=== PATIENT | male | born 1955 | race Caucasian/White ===

== ENCOUNTER 2020-11-11 11:14 | Outpatient (REF) | payer MEDICAID, SELFPAY ==
[2020-11-11 14:26] LABS: Alanine Aminotransferase 17 U/L (0-40); Albumin Level 4.4 g/dL (3.5-5.0); Alkaline Phosphatase 85 U/L (39-117); Anion Gap 15 (12-20); Aspartate Amino Transferase 22 U/L (5-37); Blood Urea Nitrogen 19 mg/dL (9-16); Calcium 9.6 mg/dL (8.4-10.2); Carbon Dioxide 22 mmol/L (22-29); Chloride 107 mmol/L (96-108); Cholesterol 126 mg/dL; Estimated Glomerular Filt Rate > 60; Glucose Fasting 93 mg/dL (60-99); HDL Cholesterol 46 mg/dL; LDL Cholesterol Calculated 60 mg/dl; Potassium 4.7 mmol/L (3.3-5.1); Sodium 139 mmol/L (135-145); Total Protein 6.9 g/dL (6.5-8.0); Triglycerides 100 mg/dL
== END 2020-11-11 11:15 | disposition home or self-care (01) ==
LOC: HO.10HDL 11:14
PROVIDERS: Visit Provider Internal Medicine
DX: I25.10 Atherosclerotic heart disease of native coronary artery without angina pectoris (principal); E78.00 Pure hypercholesterolemia, unspecified; I10 Essential (primary) hypertension
CPT/HCPCS: 36415; 80053; 80061

== ENCOUNTER 2021-05-15 10:01 | Outpatient (REF) | payer MEDICAID, SELFPAY ==
[2021-05-15 10:21] LABS: MANUAL DIFF FLAG NO
[2021-05-15 11:00] LABS: Basophils Percent Auto 0.8 % (0-2); Eosinophils Absolute Auto 0.2 X10*3/uL (0.0-0.4); Eosinophils Percent Auto 4.4 % (0-4); Hemoglobin 11.2 g/dl (14.0-18.0); Imm Gran Abs Auto 0.01 X10*3/uL (0.00-0.03); Imm Gran Pct Auto 0.3 % (0.0-0.4); Lymphocytes Absolute Auto 1.2 X10*3/uL (1.2-4.9); Mean Corpuscular Hemoglobin 32.1 pg (27.0-33.0); Mean Corpuscular Volume 100.3 fL (80.0-98.0); Mean Platelet Volume 9.9 fL (9.4-12.4); Monocytes Absolute Auto 0.5 X10*3/uL (0.1-1.2); Monocytes Percent Auto 12.3 % (2-11); Neutrophils Percent Auto 52.2 % (45-73); Platelet Count 272 X10*3/uL (160-400); Red Blood Count 3.49 X10*6/uL (4.60-5.80); Red Cell Distribution Width 14.4 % (11.0-16.0); White Blood Count 3.8 X10*3/uL (4.8-10.8)
[2021-05-15 11:34] LABS: Alanine Aminotransferase 28 U/L (0-40); Alkaline Phosphatase 137 U/L (39-117); Anion Gap 14 (12-20); Aspartate Amino Transferase 26 U/L (5-37); Bilirubin Total 0.9 mg/dL (0.0-1.0); Blood Urea Nitrogen 14 mg/dL (9-16); Calcium 9.8 mg/dL (8.4-10.2); Carbon Dioxide 25 mmol/L (22-29); Chloride 107 mmol/L (96-108); Estimated Glomerular Filt Rate > 60; Glucose Random 91 mg/dL (60-115); Iron 73 mcg/dL (45-160); Potassium 4.8 mmol/L (3.3-5.1); Sodium 141 mmol/L (135-145); Total Protein 6.5 g/dL (6.5-8.0)
[2021-05-15 11:51] LABS: Percent Iron Saturation 24 % (15-50); Total Iron Binding Capacity 307 mcg/dL (228-428); Unsaturated Iron Binding 234 ug/dL
== END 2021-05-15 10:02 | disposition home or self-care (01) ==
LOC: HO.LAB 10:01
PROVIDERS: PCP Internal Medicine; Visit Provider Internal Medicine
DX: I25.10 Atherosclerotic heart disease of native coronary artery without angina pectoris (principal); K21.9 Gastro-esophageal reflux disease without esophagitis; D64.9 Anemia, unspecified; I10 Essential (primary) hypertension
CPT/HCPCS: 36415; 80053; 83540; 85025

== ENCOUNTER 2021-06-14 13:56 | Emergency (ER) | payer MEDICAID, SELFPAY ==
--- NOTE | ~2021-06-14 | CT_ITS ---
EXAMINATION: CT ABDOMEN AND PELVIS WITHOUT CONTRAST CLINICAL INFORMATION: 66-year-old male with left abdominal inguinal hernia and left-sided abdominal and testicular pain COMPARISON: January 2017 TECHNIQUE: Multidetector volumetric imaging was performed from the superior aspect of the liver through the pubic symphysis. Sagittal and coronal reformatted images were obtained on the technologist's workstation. This CT examination was performed using dose optimization techniques as appropriate, variously including the following: *Automated exposure control *Adjustment of mA and/or kV according to patient size (this includes techniques or standardized protocols for targeted exams where dose is matched to indication/reason for exam; i.e. extremities or head) *Use of iterative reconstruction technique DLP: 740 mGy-cm FINDINGS: LUNG BASES: Increased interstitial markings subpleural bilaterally LIVER, GALLBLADDER, AND BILIARY TREE: The liver is normal in size, shape, and attenuation. No focal hepatic lesion or biliary ductal dilatation is present. Normal gallbladder is physiologically distended without stones or mass. There is no pericholecystic fluid collection PANCREAS: Unremarkable. SPLEEN: Unremarkable. ADRENAL GLANDS: Unremarkable. KIDNEYS AND URETERS: The kidneys are normal in size, shape, and attenuation. No hydronephrosis, hydroureter, or calculi seen. No perinephric stranding. BLADDER: Unremarkable. GASTROINTESTINAL TRACT: The small and large bowel are unremarkable. The appendix is unremarkable. There is large amount of retained fecal debris. Patient is status post partial gastrectomy with well-functioning anastomosis. There is no diverticulitis, colitis or diverticulosis. Loops of colon herniating in the left inguinal hernia without evidence of obstruction. ABDOMINAL WALL: There is large left inguinal hernia with herniation of loop of bowel as described. Patient is status post right inguinal hernia repair. LYMPH NODES: Normal. VASCULAR: Unremarkable. PELVIC VISCERA: Unremarkable. OSSEOUS STRUCTURES: Degenerative changes in thoracolumbar spine with grade 1 anterior listhesis of L4 over L5, L5 over S1 and narrowing T12-L1 and T10-T11 intervertebral disc spaces. There is facet hypertrophy at the level of L4-L5 and L5-S1 bilaterally. CT/CT abdomen pelvis wo con IMPRESSION: Large left inguinal hernia with herniation of descending and and sigmoid colon without evidence of incarceration Fleischner guidelines were followed.
[2021-06-14 14:03] VITALS: BP 126/60; PULSE 73; O2SAT 100
[2021-06-14 15:01] VITALS: BP 146/71; PULSE 67; RESP 18; TEMP 36.9; O2SAT 100; BMI 24.3
--- NOTE | 2021-06-14 15:02 | ECG_ITS ---
Test Reason : CHEST PAIN Blood Pressure : / mmHG Vent. Rate : 063 BPM Atrial Rate : 063 BPM P-R Int : 162 ms QRS Dur : 132 ms QT Int : 422 ms P-R-T Axes : 044 010 061 degrees QTc Int : 431 ms Normal sinus rhythm Left bundle branch block Abnormal ECG When compared with ECG of 21-SEP-2018 08:00, No significant change was found Referred By: Amanda Suh Electronically Signed By:Pio Bzaan
--- NOTE | 2021-06-14 15:33 | ED_ITS ---
HPI - Chest Pain General Chief Complaint: Chest Pain Stated Complaint: hernia pain Time Seen by Provider: 06/14/21 15:04 Source: patient Mode of arrival: EMS Limitations: no limitations History of Present Illness HPI narrative: 66-year-old male presents for crushing substernal chest pain that started 1 hour ago. Patient also presents for a non reducible painful left inguinal hernia. Patient has a past medical history of left bundle-branch block, coronary artery disease with stent, hypertension, hyperlipidemia, gout, and bilateral inguinal hernias left worse than right. Patient was diagnosed with a left bundle branch block and a stent was placed in December of 2020. He sees [facility] cardiology. Chest pain today is crushing, constant, radiates to his left arm and back. He feels short of breath. He was sweaty. No nausea. When asked if patient ever had a at myocardial infarction, patient stated that in March he was ? on arrival? at [facility]. States he has been to [facility] 17 time since December 2020. Patient was scheduled to have hernia surgery but they had to defer the surgery because patient is on Brilinta. Patient states that he is had to have procedural sedation to have his left inguinal hernia reduced twice in the recent past, most recently 2 weeks ago. Patient had a rupture of gastric ulcer and had laparoscopic surgery. Today for the last hour patient has not been able to reduce his left inguinal hernia, and has severe pain. Related Data Previous Rx's Medication Instructions Recorded oxycodone 5 mg capsule 5 mg PO Q8H PRN #9 cap 06/14/21 Allergies Allergy/AdvReac Type Severity Reaction Status Date / Time Iodinated Contrast Media AdvReac Severe PARALYSIS/N Unverified 11/16/19 15:34 [CONTRAST, IV] UMBNESS Enviro-Stress Allergy Unknown Uncoded 11/07/19 00:00 Review of Systems Constitutional: Constitutional: Denies body ache(s), Denies chills, Denies fatigue, Denies fever(s), Denies headache(s), Denies malaise and Denies weakness Eyes: Eyes: Denies diplopia ENT: Denies vertigo, Denies dizziness, Denies otalgia, Denies headache(s), Denies mouth pain, Denies post nasal drip, Denies sinus pain, Denies sinus pressure, Denies sore throat and Denies throat swelling Cardiovascular: Cardiovascular: Reports chest pain, Denies syncope, Denies leg edema, Denies lightheadedness, Denies Loss of Consciousness, Denies palpitations and Reports dyspnea Respiratory: Respiratory: Denies chest congestion, Denies cough and Reports dyspnea Gastrointestinal: Gastrointestinal: Denies abdominal pain, Denies hematochezia, Denies constipation, Denies diarrhea and Denies vomiting Genitourinary: Genitourinary: Denies dysuria, Denies flank pain, Denies scrotal swelling, Denies testicular pain, Denies urinary hesitancy, Denies urinary incontinence and Denies urinary urgency Comments: Painful left inguinal hernia Musculoskeletal: Musculoskeletal: Reports no additional musculoskeletal complaints Neurologic: Denies confusion, Denies vertigo, Denies dizziness, Denies syncope, Denies headache(s) and Denies weakness Psychiatric: Psychiatric: Denies anxiety, Denies confusion and Denies depression Endocrine: Endocrine: Denies fatigue and Denies palpitations Allergic/Immunologic: Allergic/Immunologic: Denies throat swelling PMFSH Past Medical History Medical History Coronary artery disease Gout Hypertension Incarcerated left inguinal hernia Left bundle branch block No known health problems Peptic ulcer disease Surgical History (Updated 06/14/21 @ 16:37 by Cyrus Kearney MD) H/O heart artery stent History of partial gastrectomy Social History Social History Advance Directives: No Advance Directives Information Provided: No Physical Exam Vital Signs: Vital Signs: Last Vital Signs Temp 98.5 F 06/14/21 15:01 Pulse 66 06/14/21 18:00 Resp 13 06/14/21 18:00 BP 134/68 06/14/21 18:00 Pulse Ox 100 06/14/21 18:00 BMI result Body Mass Index 24.3 Const: General: No confusion Nutritional Appearance: well nourished Orientation/consciousness: No confusion Limitations: no limitations Eyes: Conjunctivae: conjunctivae normal Pupils: Equal, round and reactive pupils present EOM: EOMs intact bilaterally Neck: Neck: Yes full ROM, Yes no lymphadenopathy and Yes supple Resp: Effort & Inspection: normal respiratory effort and able to speak in complete sentences Auscultation: clear to auscultation bilaterally, no crackles, no rales, no rhonchi and no wheezes Cardio: Rate: regular rate Rhythm: regular rhythm Heart sounds: S1 normal heart sound present and S2 normal heart sound present GI: Inspection: Yes normal to inspection Palpation (GI): Soft to palpation, nontender, no guarding and not rigid Percussion: Yes normal to percussion Auscultation: normal bowel sounds : Male General Exam: No ecchymosis, No edema, No erythema and Yes hernia Penis: normal penis and circumcised Meatus: meatus normal Scrotum: scrotum normal Testes: Testes normal and no testicular tenderness Skin: General skin exam: no rashes or lesions noted Neuro: General: No confusion Cranial nerves: Yes Equal, round and reactive pupils present Extrem: General: Yes normal to inspection and Yes full ROM Psych: Appearance: grossly normal Affect: normal affect Attitude: libia ative Thought process: Normal thought process present Course Reevaluation(s) Reevaluation #1: Dr Borges, general surgery, came to bedside, and reduced hernia. He stated hernia is not strangulated, but pt need hernia surgery, and cardiology will not sign off on surgery here d/t pt's heart history of recent stent. Time: 16:19 Reevaluation #2: 66-year-old male presents with chest pain and left inguinal hernia pain. Labs are unremarkable, EKG shows left bundle branch block but no [place] per Sgarbossa criteria, 1st troponin is 5.3. CT scan shows large left inguinal hernia of descending and sigmoid colon without incarceration. No free air or abscess. Small fat containing right inguinal hernia. Pt sees Dr Mendiola, for his scheduled hernia surgery I did call [facility], and this surgeon is the one regional director of finance. CT/CT abdomen pelvis wo con IMPRESSION: Large left inguinal hernia with herniation of descending and and sigmoid colon without evidence of incarceration? ? On re-exam, pt's chest pain has resolved completely. Will re-draw troponin while awaiting call back Reevaluation #3: Repeat trip is 5.2, no delta change. Spoke to Dr. Mendiola, general surgeon at [facility], who stated that patient should be given inguinal abdominal belts, and that his office will call the patient on Wednesday to determine what the plan is for surgery. Dr Mendiola said that before hernia surgery can occur, patient is cardiologists testis sign off on the surgery due to his recent stent placed in December. Patient has not been on Brilinta for 6 months. This surgeon will not do surgery due to the Brilinta and patient's cardiac status until cardiology approves it. Will send patient home on a small dose of oxycodone. Discussed with patient the importance of speaking to [facility] surgery on Wednesday, counseled patient to return to emergency room for worsening severe pain, vomiting, or any other new or concerning symptoms. MDM - Chest Pain Lab Data Result diagrams: 06/14/21 16:42 06/14/21 16:42 Labs: Lab Results 06/14/21 06/14/21 06/14/21 Range/Units 15:38 16:42 16:42 WBC 5.5 (4.8-10.8) X10*3/uL RBC 3.42 L (4.60-5.80) X10*6/uL Hgb 11.3 L (14.0-18.0) g/dl Hct 34.3 L (42.0-52.0) % MCV 100.3 H (80.0-98.0) fL MCH 33.0 (27.0-33.0) pg MCHC 32.9 (31.0-36.0) g/dl RDW 13.6 (11.0-16.0) % Plt Count 275 (160-400) X10*3/uL MPV 9.7 (9.4-12.4) fL Immature Gran % (Auto) 0.2 (0.0-0.4) % Neut % (Auto) 60.1 (45-73) % Lymph % (Auto) 25.1 (20-40) % Bleckley % (Auto) 11.6 H (2-11) % Eos % (Auto) 2.5 (0-4) % Baso % (Auto) 0.5 (0-2) % Lymph # (Auto) 1.4 (1.2-4.9) X10*3/uL Bleckley # (Auto) 0.6 (0.1-1.2) X10*3/uL Eos # (Auto) 0.1 (0.0-0.4) X10*3/uL Baso # (Auto) 0.0 (0.0-0.2) X10*3/uL Abs Immat Gran (auto) 0.01 (0.00-0.03) X10*3/uL Absolute Neuts (auto) 3.3 (2.0-8.3) x10*3/uL Absolute Nucleated RBC 0.000 (0.0-0.012) X10*3/uL Nucleated RBC % (auto) 0.0 (0.0-0.2) /100WBC Sodium 140 (135-145) mmol/L Potassium 4.6 (3.3-5.1) mmol/L Chloride 107 (96-108) mmol/L Carbon Dioxide 25 (22-29) mmol/L Anion Gap 13 (12-20) BUN 21 H (9-16) mg/dL Creatinine 1.01 (0.5-1.4) mg/dL Estim Creat Clear Calc 73.2 Estimated GFR > 60 Random Glucose 96 (60-115) mg/dL Lactic Acid (0.5-2.0) mmol/L Calcium 10.0 (8.4-10.2) mg/dL Total Bilirubin 0.9 (0.0-1.0) mg/dL AST 35 (5-37) U/L ALT 21 (0-40) U/L Alkaline Phosphatase 118 H (39-117) U/L Troponin I High Sens (<3.5-35.0) ng/L Total Protein 6.8 (6.5-8.0) g/dL Albumin 4.2 (3.5-5.0) g/dL COVID-19 (JAMAAL) Negative (Negative) COVID-19 Clin Com See Note 06/14/21 06/14/21 06/14/21 Range/Units 16:42 16:42 18:27 WBC (4.8-10.8) X10*3/uL RBC (4.60-5.80) X10*6/uL Hgb (14.0-18.0) g/dl Hct (42.0-52.0) % MCV (80.0-98.0) fL MCH (27.0-33.0) pg MCHC (31.0-36.0) g/dl RDW (11.0-16.0) % Plt Count (160-400) X10*3/uL MPV (9.4-12.4) fL Immature Gran % (Auto) (0.0-0.4) % Neut % (Auto) (45-73) % Lymph % (Auto) (20-40) % Bleckley % (Auto) (2-11) % Eos % (Auto) (0-4) % Baso % (Auto) (0-2) % Lymph # (Auto) (1.2-4.9) X10*3/uL Bleckley # (Auto) (0.1-1.2) X10*3/uL Eos # (Auto) (0.0-0.4) X10*3/uL Baso # (Auto) (0.0-0.2) X10*3/uL Abs Immat Gran (auto) (0.00-0.03) X10*3/uL Absolute Neuts (auto) (2.0-8.3) x10*3/uL Absolute Nucleated RBC (0.0-0.012) X10*3/uL Nucleated RBC % (auto) (0.0-0.2) /100WBC Sodium (135-145) mmol/L Potassium (3.3-5.1) mmol/L Chloride (96-108) mmol/L Carbon Dioxide (22-29) mmol/L Anion Gap (12-20) BUN (9-16) mg/dL Creatinine (0.5-1.4) mg/dL Estim Creat Clear Calc Estimated GFR Random Glucose (60-115) mg/dL Lactic Acid 1.0 (0.5-2.0) mmol/L Calcium (8.4-10.2) mg/dL Total Bilirubin (0.0-1.0) mg/dL AST (5-37) U/L ALT (0-40) U/L Alkaline Phosphatase (39-117) U/L Troponin I High Sens 5.3 5.2 (<3.5-35.0) ng/L Total Protein (6.5-8.0) g/dL Albumin (3.5-5.0) g/dL COVID-19 (JAMAAL) (Negative) COVID-19 Clin Com Discharge Plan Discharge Clinical Impression: Hernia, inguinal, left, Chest pain Patient Disposition: Home, Self-Care Instructions: Chest Pain (ED), Inguinal Hernia (ED) Additional Instructions: Please call Dr. Mendiola on Wednesday, they should also be calling you. They will discuss the plan for inguinal surgery. In the meantime, no straining or heavy lifting. Take oxycodone as needed. If you have more chest pain, shortness of breath, nausea vomiting, or severe abdominal or inguinal pain, please return to emergency room. Prescriptions: New oxycodone 5 mg capsule 5 mg PO Q8H PRN (Reason: pain) Qty: 9 0RF
[2021-06-14 16:00] VITALS: BP 142/72; PULSE 68; RESP 13; O2SAT 100
--- NOTE | 2021-06-14 16:23 | P.CONGS_ITS ---
History of Present Illness Consult details Consult date: 06/14/21 Narrative: 66-year-old male patient with previous history of coronary artery disease, status post stent placement, left bundle-branch block, hypertension, hyperlipidemia, and gout presenting with complaints of diffuse abdominal pain as well as question chest pain. He has a known history of bilateral inguinal hernias and has required multiple visits to the emergency department for reduction. He was scheduled for surgery at [facility] on Wednesday to repair this left inguinal hernia. Due to his use of Brilinta however, this surgery was postponed. He is usually able to reduce the hernia himself but this morning noted severe pain associated with pressure on the left groin. He wanted to be transferred to [facility] however the ENT service refused. He presents to the emergency department for further evaluation. I have previously seen in the office for similar problem and recommended repair at [facility] due to his underlying cardiac issues. In the emergency department ER physician was unable to reduce the hernia. Surgical consultation was requested for further management. Review of Systems Constitutional: Constitutional: Denies chills, Denies fever(s), Denies headache(s) and Denies poor appetite ENT: Denies dizziness and Denies headache(s) Cardiovascular: Cardiovascular: Reports chest pain, Denies rapid heart rate, Denies palpitations and Denies slow heart rate Respiratory: Respiratory: Denies chest congestion, Denies cough, Denies pain on inspiration and Denies wheezing Gastrointestinal: Gastrointestinal: Reports abdominal pain, Reports bloating, Denies change in stool character, Denies constipation, Denies diarrhea, Denies nausea, Denies vomiting and Denies hematemesis Musculoskeletal: Musculoskeletal: Denies back pain, Denies arthralgias, Denies joint swelling and Denies numbness Integumentary/Breasts: Skin/Breast: Denies change in pigmentation, Denies erythema and Denies rash Neurologic: Denies dizziness, Denies headache(s) and Denies numbness Psychiatric: Psychiatric: Denies anxiety and Denies depression Endocrine: Endocrine: Denies palpitations Hematologic/Lymphatic: Hematologic/Lymphatic: Denies easy bleeding, Denies easy bruising and Denies lymphadenopathy Allergic/Immunologic: Allergic/Immunologic: Denies wheezing PMFSH Past Medical History Medical History (Updated 06/14/21 @ 16:37 by Cyrus Kearney MD) Coronary artery disease Gout Hypertension Incarcerated left inguinal hernia Left bundle branch block No known health problems Peptic ulcer disease Surgical History Surgical History (Updated 06/14/21 @ 16:37 by Cyrus Kearney MD) H/O heart artery stent History of partial gastrectomy Social History Social History Advance Directives: No Advance Directives Information Provided: No Meds Allergies Allergy/AdvReac Type Severity Reaction Status Date / Time Iodinated Contrast Media AdvReac Severe PARALYSIS/N Unverified 11/16/19 15:34 [CONTRAST, IV] UMBNESS Enviro-Stress Allergy Unknown Uncoded 11/07/19 00:00 Active Medications: Current Medications Sodium Chloride (Ns) 1,000 mls @ 999 mls/hr IV .Q1H1M BRITTANY Stop: 06/14/21 16:45 Physical Exam Vital Signs: Vital Signs: Last Vital Signs Temp 98.5 F 06/14/21 15:01 Pulse 67 06/14/21 15:01 Resp 18 06/14/21 15:01 BP 146/71 H 06/14/21 15:01 Pulse Ox 100 06/14/21 15:01 BMI result Body Mass Index 24.3 Const: General: healthy appearing and no acute distress Nutritional Appearance: average body habitus Orientation/consciousness: patient oriented x3 Limitations: no limitations HEENT: Head: Yes normocephalic and Yes atraumatic Ears: hearing grossly normal bilaterally Neck: Neck: Yes normal visual inspection Resp: Effort & Inspection: normal respiratory effort, no audible wheezes, no cough, no respiratory distress and no stridor GI: Other: Soft, nondistended, mild tenderness to deep palpation especially in the left groin. An obvious left inguinal hernia which is tender to palpation. Patient was examined in the supine position with gentle pressure at the internal ring. Hernia was able to be easily reduced. No palpable hernia noted on the right side. Skin: Other: Warm, dry, no rash Neuro: General: patient oriented x3 Extrem: General: Yes normal to inspection Results Labs Labs: All other labs normal. Assessment and Plan (1) Incarcerated left inguinal hernia: Status: Acute (2) Coronary artery disease: Status: Acute Plan Patient was previously scheduled for repair of this left inguinal hernia at [facility]. The hernia is now reducible but easily returns with standing. I would suggest he be transferred to [facility] for repair of this left inguinal hernia. He will need to be off his Brilinta if possible in this would be best performed at a tertiary care center with available cardiology backup due to his previous stent placement. He is in total agreement to transfer. Discussed this with the ER physician as well. Procedures Date of Service Date of Service: 06/14/21
[2021-06-14] MEDS: Morphine Sulfate 4 MG/ML CARTRIDGE IVPUSH (16:43)
[2021-06-14] MEDS: ondansetron HCL 4 MG/2 ML VIAL IVPUSH (16:44)
[2021-06-14] MEDS: 0.9 % Sodium Chloride 1,000 ML 999 ML IV (16:45)
[2021-06-14 16:54] LABS: MANUAL DIFF FLAG NO
[2021-06-14 16:57] LABS: Basophils Percent Auto 0.5 % (0-2); Eosinophils Absolute Auto 0.1 X10*3/uL (0.0-0.4); Eosinophils Percent Auto 2.5 % (0-4); Hematocrit 34.3 % (42.0-52.0); Hemoglobin 11.3 g/dl (14.0-18.0); Imm Gran Abs Auto 0.01 X10*3/uL (0.00-0.03); Imm Gran Pct Auto 0.2 % (0.0-0.4); Lymphocytes Absolute Auto 1.4 X10*3/uL (1.2-4.9); Lymphocytes Percent Auto 25.1 % (20-40); Mean Corpuscular HGB Conc 32.9 g/dl (31.0-36.0); Mean Corpuscular Volume 100.3 fL (80.0-98.0); Mean Platelet Volume 9.7 fL (9.4-12.4); Monocytes Absolute Auto 0.6 X10*3/uL (0.1-1.2); Monocytes Percent Auto 11.6 % (2-11); Neutrophils Absolute Auto 3.3 x10*3/uL (2.0-8.3); Neutrophils Percent Auto 60.1 % (45-73); Platelet Count 275 X10*3/uL (160-400); Red Blood Count 3.42 X10*6/uL (4.60-5.80); Red Cell Distribution Width 13.6 % (11.0-16.0); White Blood Count 5.5 X10*3/uL (4.8-10.8)
[2021-06-14 17:09] LABS: COVID-19 Test Negative (Negative)
[2021-06-14 17:11] LABS: Alanine Aminotransferase 21 U/L (0-40); Albumin Level 4.2 g/dL (3.5-5.0); Alkaline Phosphatase 118 U/L (39-117); Anion Gap 13 (12-20); Aspartate Amino Transferase 35 U/L (5-37); Bilirubin Total 0.9 mg/dL (0.0-1.0); Blood Urea Nitrogen 21 mg/dL (9-16); Carbon Dioxide 25 mmol/L (22-29); Chloride 107 mmol/L (96-108); Creatinine Clr Calc Pharmacy 73.2; Estimated Glomerular Filt Rate > 60; Glucose Random 96 mg/dL (60-115); Potassium 4.6 mmol/L (3.3-5.1); Sodium 140 mmol/L (135-145); Total Protein 6.8 g/dL (6.5-8.0)
[2021-06-14 17:15] LABS: Troponin-I High Sensitivity 5.3 ng/L (<3.5-35.0)
[2021-06-14 18:00] VITALS: BP 134/68; PULSE 66; RESP 13; O2SAT 100
[2021-06-14 18:55] LABS: Troponin-I High Sensitivity 5.2 ng/L (<3.5-35.0)
[2021-06-14 19:58] VITALS: BP 1466/72; PULSE 67; RESP 17; TEMP 37; O2SAT 100
--- NOTE | 2021-06-14 20:03 | PC.NURSE ---
Lia HAYDEN told Sam RN at shift change that pt was waiting for abdominal binder which was being looked for by the nursing supervisor case loading. Nursing supervisor case loading was unable to find an abdominal binder available for the pt so plan is to discharge pt without abdominal binder at this time.
== END 2021-06-14 20:08 | disposition home or self-care (01) ==
PROVIDERS: Physician Assistant; Emergency Provider Emergency Medicine; PCP Internal Medicine
DX: R07.9 Chest pain, unspecified (principal); K40.90 Unilateral inguinal hernia, without obstruction or gangrene, not specified as recurrent; I44.7 Left bundle-branch block, unspecified; I10 Essential (primary) hypertension; I25.10 Atherosclerotic heart disease of native coronary artery without angina pectoris; Z20.822 Contact with and (suspected) exposure to COVID-19; Z95.5 Presence of coronary angioplasty implant and graft
CPT/HCPCS: 36415; 74176; 80053; 83605; 84484; 85025; 87635; 93005; 96361; 96374; 96375; 99284; J2270; J2405

== ENCOUNTER 2021-06-16 07:40 | Emergency (ER) | payer MEDICAID, SELFPAY ==
[2021-06-16 07:46] VITALS: BP 140/78; BP 140/81; PULSE 18; PULSE 62; RESP 18; TEMP 36.4; O2SAT 100; O2SAT 99; BMI 24.3
--- NOTE | 2021-06-16 08:07 | ED.ABDPAIN ---
HPI - Abdominal Pain General Chief Complaint: Abdominal Pain Stated Complaint: hernia pain Time Seen by Provider: 06/16/21 08:07 Source: patient Mode of arrival: ambulatory Limitations: no limitations History of Present Illness HPI narrative: 66 y/o male with history of bilateral inguinal hernias L>R, CAD s/p stent, LBBB, HTN, HLD, and gout who presents to the ER with ongoing hernia pain. He was seen here for the same 2 days ago, his left inguinal hernia was reduced by Dr. Kearney. [facility] was called for transfer (where he sees Dr. Mendiola) however transfer was not recommended at that time with plan to d/c with inguinal abdominal belts and his surgeon to call today to determine surgical plan. Patient reports yesterday after his left-sided hernia started having severe and ongoing pain. He has had many episodes of this in the past and usually can reduce it at home however he was unable to do so today. He reports severe pain when he touches the area he denies any vomiting or diarrhea. He is nauseous and having trouble breathing because of the pain. This has happened to him before. MD elicited complaint: abdominal pain Pertinent past history: other (bilateral inguinal hernias) Onset (ago): day(s) (1) Pain Consistency: constant Location: LLQ Severity: severe Pain scale (0-10): 10 Quality: stabbing and aching Radiation: none Exacerbating factors: movement and other (palpation) Relieving factors: nothing Context: history of similar episodes Associated symptoms: nausea Related Data Previous Rx's Medication Instructions Recorded oxycodone 5 mg capsule 5 mg PO Q8H PRN #9 cap 06/14/21 Allergies Allergy/AdvReac Type Severity Reaction Status Date / Time polyethylene glycol Allergy Itching Verified 06/16/21 10:56 Iodinated Contrast Media AdvReac Severe PARALYSIS/N Unverified 11/16/19 15:34 [CONTRAST, IV] UMBNESS Enviro-Stress Allergy Unknown Unknown Uncoded 06/16/21 10:56 Review of Systems Review of Systems Constitutional: No Fever, No Chills ENT/Mouth: No sore throat, No Rhinorrhea, No Swallowing Difficulty Eyes: No Eye Pain, No Swelling, No Redness Cardiovascular: + Chest Pain, + SOB, No Orthopnea, No Edema Respiratory: No Cough, No Sputum, No Wheezing, No dyspnea Gastrointestinal: + Nausea, No Vomiting, No Diarrhea, + abdominal Pain, No Hematochezia, No Melena Genitourinary: No Dysuria, No Urinary Frequency, No Hematuria Musculoskeletal: No joint pain, No Myalgias Skin: No Skin Lesions, No rash Neuro: No Weakness, No Numbness, No Dizziness, No Headache Psych: + Anxiety/Panic, No Depression Heme/Lymph: No Bruising, No Lymphadenopathy Endocrine: No Polyuria, No Polydipsia PMFSH Past Medical History Medical History Coronary artery disease Gout Hypertension Incarcerated left inguinal hernia Left bundle branch block No known health problems Peptic ulcer disease Surgical History H/O heart artery stent History of partial gastrectomy Social History Social History Advance Directives: No Advance Directives Information Provided: No Physical Exam ED Vital Signs: Vital Signs - 24 hr 06/16/21 07:46 06/16/21 09:09 06/16/21 10:52 Temperature 97.5 F 97.9 F Pulse Rate 62 53 60 Respiratory Rate 18 18 11 L Blood Pressure 140/78 H 126/55 L 130/51 L Pulse Oximetry 100 100 BMI result Body Mass Index 24.3 Appearance: Alert. Oriented X3. No acute distress. Eyes: Pupils equal, round and reactive to light. ENT: Pharynx normal. Neck: Normal inspection. Neck supple. CVS: Normal heart rate and rhythm. Pulses normal. Respiratory: No respiratory distress. Breath sounds normal. Abdomen: large left inguinal mass visualized without overlying skin changes, very tender to touch. +guarding and rebound normal+BS x4 Skin: Skin warm and dry. Normal skin color. Normal skin turgor. No rashes. Extremities: No lower extremity edema. Neuro: Oriented X 3. No motor deficit. No sensory deficit. Course Course Course Narrative: 66-year-old male with known large left-sided inguinal hernia presents to the ER today with significant pain in the area. On examination there is a large left inguinal mass, very tender to palpation. Will medicate an attempt to reduce. He just had imaging done 2 days ago that showed the hernia, no evidence of incarceration at that time. Dr. Kearney was able to reduce the hernia. Dr. Kearney has been contacted today, he is recommending patient go to [facility] to see his surgeon for evaluation and treatment, no surgical options are here at [place] given his cardiac history and complex history. Patient understands. Reevaluation(s) Reevaluation #1: Patient given 2 doses of IM dilaudid and oral oxycodone with improvement in pain - he was able to to tolerate reduction with manual pressure however the large defect allowed the bowel to come right back out. Patient called his Surgeon who has set a date of 06/24 for surigcal repair with plan to stop brillinta tomorrow. His pain is now resolved. Stable for d/c home with pain control and close outpatient follow up. MDM - Abdominal Pain Medical Records Attestation: I reviewed the patient's medical records. Lab Data Attestation: I reviewed the patient's lab results. Result diagrams: 06/16/21 09:32 06/16/21 09:32 Labs: Lab Results 06/16/21 06/16/21 06/16/21 Range/Units 09:32 09:32 09:32 WBC 5.3 (4.8-10.8) X10*3/uL RBC 3.29 L (4.60-5.80) X10*6/uL Hgb 10.9 L (14.0-18.0) g/dl Hct 32.5 L (42.0-52.0) % MCV 98.8 H (80.0-98.0) fL MCH 33.1 H (27.0-33.0) pg MCHC 33.5 (31.0-36.0) g/dl RDW 13.4 (11.0-16.0) % Plt Count 230 (160-400) X10*3/uL MPV 9.2 L (9.4-12.4) fL Immature Gran % (Auto) 0.2 (0.0-0.4) % Neut % (Auto) 67.8 (45-73) % Lymph % (Auto) 18.6 L (20-40) % [place] % (Auto) 11.1 H (2-11) % Eos % (Auto) 1.9 (0-4) % Baso % (Auto) 0.4 (0-2) % Lymph # (Auto) 1.0 L (1.2-4.9) X10*3/uL [place] # (Auto) 0.6 (0.1-1.2) X10*3/uL Eos # (Auto) 0.1 (0.0-0.4) X10*3/uL Baso # (Auto) 0.0 (0.0-0.2) X10*3/uL Abs Immat Gran (auto) 0.01 (0.00-0.03) X10*3/uL Absolute Neuts (auto) 3.6 (2.0-8.3) x10*3/uL Absolute Nucleated RBC 0.000 (0.0-0.012) X10*3/uL Nucleated RBC % (auto) 0.0 (0.0-0.2) /100WBC PT 12.9 (9.9-13.0) SEC INR 1.1 (0.9-1.1) APTT 32.8 (24.1-38.0) SEC Sodium 141 (135-145) mmol/L Potassium 4.7 (3.3-5.1) mmol/L Chloride 108 (96-108) mmol/L Carbon Dioxide 25 (22-29) mmol/L Anion Gap 13 (12-20) BUN 15 (9-16) mg/dL Creatinine 0.82 (0.5-1.4) mg/dL Estim Creat Clear Calc 90.2 Estimated GFR > 60 Random Glucose 97 (60-115) mg/dL Calcium 9.2 D (8.4-10.2) mg/dL Total Bilirubin 0.9 (0.0-1.0) mg/dL Direct Bilirubin 0.4 (0.0-0.5) mg/dL AST 35 (5-37) U/L ALT 22 (0-40) U/L Alkaline Phosphatase 106 (39-117) U/L Troponin I High Sens (<3.5-35.0) ng/L Total Protein 6.2 L (6.5-8.0) g/dL Albumin 3.9 (3.5-5.0) g/dL 06/16/21 Range/Units 09:32 WBC (4.8-10.8) X10*3/uL RBC (4.60-5.80) X10*6/uL Hgb (14.0-18.0) g/dl Hct (42.0-52.0) % MCV (80.0-98.0) fL MCH (27.0-33.0) pg MCHC (31.0-36.0) g/dl RDW (11.0-16.0) % Plt Count (160-400) X10*3/uL MPV (9.4-12.4) fL Immature Gran % (Auto) (0.0-0.4) % Neut % (Auto) (45-73) % Lymph % (Auto) (20-40) % [place] % (Auto) (2-11) % Eos % (Auto) (0-4) % Baso % (Auto) (0-2) % Lymph # (Auto) (1.2-4.9) X10*3/uL [place] # (Auto) (0.1-1.2) X10*3/uL Eos # (Auto) (0.0-0.4) X10*3/uL Baso # (Auto) (0.0-0.2) X10*3/uL Abs Immat Gran (auto) (0.00-0.03) X10*3/uL Absolute Neuts (auto) (2.0-8.3) x10*3/uL Absolute Nucleated RBC (0.0-0.012) X10*3/uL Nucleated RBC % (auto) (0.0-0.2) /100WBC PT (9.9-13.0) SEC INR (0.9-1.1) APTT (24.1-38.0) SEC Sodium (135-145) mmol/L Potassium (3.3-5.1) mmol/L Chloride (96-108) mmol/L Carbon Dioxide (22-29) mmol/L Anion Gap (12-20) BUN (9-16) mg/dL Creatinine (0.5-1.4) mg/dL Estim Creat Clear Calc Estimated GFR Random Glucose (60-115) mg/dL Calcium (8.4-10.2) mg/dL Total Bilirubin (0.0-1.0) mg/dL Direct Bilirubin (0.0-0.5) mg/dL AST (5-37) U/L ALT (0-40) U/L Alkaline Phosphatase (39-117) U/L Troponin I High Sens 4.4 (<3.5-35.0) ng/L Total Protein (6.5-8.0) g/dL Albumin (3.5-5.0) g/dL ECG Data Attestation: I personally reviewed and interpreted this ECG as follows: ECG interpretation date: 06/16/21 ECG interpretation time: 13:41 Prior ECG tracings: available for review Interpretation: Sinus bradycardia, heart rate 56 beats per minute, left bundle branch block which is old from previous, normal MT interval, no change ST segment elevations or depressions from baseline. Critical Care Time Critical Care Time Critical Care Time: Yes Total Critical Care Time: 36 Attestation: I have personally provided critical care time exclusive of time spent on separately billable procedures. Time includes review of lab data, frequent bedside reassessments any remedication and monitoring for potential decompensation. Intervention performed as documented. Discharge Plan Discharge Clinical Impression: Hernia, inguinal, left Patient Disposition: Home, Self-Care Instructions: Inguinal Hernia (ED), Inguinal Hernia Repair (DC) Additional Instructions: Take the previously prescribed oxycodone as needed for severe pain. Wear tight, compressive underwear or biking shorts. Take [id number] Colace and senna to help prevent constipation Follow up wtih your Surgeon as scheduled and plan for surgery next week on Wednesday. If you have worsening pain recommend presenting directly to [facility] emergency department where your surgeon is. Prescriptions: No Action oxycodone 5 mg capsule 5 mg PO Q8H PRN (Reason: pain) Qty: 9 0RF
--- NOTE | 2021-06-16 08:47 | ECG_ITS ---
Test Reason : ABD PAIN,CARDIAC HX Blood Pressure : / mmHG Vent. Rate : 056 BPM Atrial Rate : 056 BPM P-R Int : 162 ms QRS Dur : 130 ms QT Int : 452 ms P-R-T Axes : 068 009 021 degrees QTc Int : 436 ms Sinus bradycardia Left bundle branch block Abnormal ECG When compared with ECG of 14-JUN-2021 14:57, No significant change was found Referred By: Nathaly Kiser Electronically Signed By:AGUILAR REYES MD
[2021-06-16 09:09] VITALS: BP 126/55; PULSE 53; RESP 18; TEMP 36.6; O2SAT 100
[2021-06-16 09:38] LABS: MANUAL DIFF FLAG NO
[2021-06-16 09:40] LABS: Basophils Percent Auto 0.4 % (0-2); Eosinophils Absolute Auto 0.1 X10*3/uL (0.0-0.4); Eosinophils Percent Auto 1.9 % (0-4); Hematocrit 32.5 % (42.0-52.0); Hemoglobin 10.9 g/dl (14.0-18.0); Imm Gran Abs Auto 0.01 X10*3/uL (0.00-0.03); Imm Gran Pct Auto 0.2 % (0.0-0.4); Lymphocytes Percent Auto 18.6 % (20-40); Mean Corpuscular HGB Conc 33.5 g/dl (31.0-36.0); Mean Corpuscular Hemoglobin 33.1 pg (27.0-33.0); Mean Corpuscular Volume 98.8 fL (80.0-98.0); Mean Platelet Volume 9.2 fL (9.4-12.4); Monocytes Absolute Auto 0.6 X10*3/uL (0.1-1.2); Monocytes Percent Auto 11.1 % (2-11); Neutrophils Absolute Auto 3.6 x10*3/uL (2.0-8.3); Neutrophils Percent Auto 67.8 % (45-73); Platelet Count 230 X10*3/uL (160-400); Red Blood Count 3.29 X10*6/uL (4.60-5.80); Red Cell Distribution Width 13.4 % (11.0-16.0); White Blood Count 5.3 X10*3/uL (4.8-10.8)
[2021-06-16 09:45] LABS: INTERNATIONAL NORM RATIO 1.1 (0.9-1.1); Prothrombin Time 12.9 SEC (9.9-13.0)
[2021-06-16 09:48] LABS: Partial Thromboplastin Time 32.8 SEC (24.1-38.0)
[2021-06-16] MEDS: oxyCODONE HCl Immed Release 5 MG TABLET PO (10:01)
[2021-06-16 10:03] LABS: Alanine Aminotransferase 22 U/L (0-40); Albumin Level 3.9 g/dL (3.5-5.0); Alkaline Phosphatase 106 U/L (39-117); Anion Gap 13 (12-20); Aspartate Amino Transferase 35 U/L (5-37); Bilirubin Direct 0.4 mg/dL (0.0-0.5); Bilirubin Total 0.9 mg/dL (0.0-1.0); Blood Urea Nitrogen 15 mg/dL (9-16); Calcium 9.2 mg/dL (8.4-10.2); Carbon Dioxide 25 mmol/L (22-29); Chloride 108 mmol/L (96-108); Creatinine Clr Calc Pharmacy 90.2; Estimated Glomerular Filt Rate > 60; Glucose Random 97 mg/dL (60-115); Potassium 4.7 mmol/L (3.3-5.1); Sodium 141 mmol/L (135-145); Total Protein 6.2 g/dL (6.5-8.0)
[2021-06-16 10:08] LABS: Troponin-I High Sensitivity 4.4 ng/L (<3.5-35.0)
[2021-06-16 10:52] VITALS: BP 130/51; PULSE 60; RESP 11
[2021-06-16] MEDS: HYDROmorphone HCl 1 MG/ML SYRINGE IM ×2 (10:55→12:47)
[2021-06-16] MEDS: Docusate Sodium 100 MG CAPSULE PO (12:46)
[2021-06-16 14:29] VITALS: BP 119/59; PULSE 79; RESP 18; O2SAT 98
== END 2021-06-16 14:31 | disposition home or self-care (01) ==
PROVIDERS: Physician Assistant; Emergency Provider Emergency Medicine
DX: K40.90 Unilateral inguinal hernia, without obstruction or gangrene, not specified as recurrent (principal); R10.32 Left lower quadrant pain; R00.1 Bradycardia, unspecified; Z79.899 Other long term (current) drug therapy
CPT/HCPCS: 36415; 80048; 80076; 84484; 85025; 85610; 85730; 93005; 96372; 99284; 99291; J1170

== ENCOUNTER 2021-08-07 02:52 | Observation (INO) | payer MEDICAID, SELFPAY ==
[2021-08-07] VITALS (7 sets, daily range): BP systolic 120–155; BP diastolic 46–80; PULSE 57–62; RESP 16–20; TEMP 36.9; O2SAT 98–100; BMI 23.9
--- NOTE | ~2021-08-07 | XR_ITS ---
EXAMINATION: XR CHEST CLINICAL INFORMATION: Chest pain COMPARISON: 09/21/2018 TECHNIQUE: Frontal view of the chest was obtained. FINDINGS: No significant abnormality is noted involving the heart, lungs, mediastinum, bony thorax or soft tissues. XR/XR chest 1V IMPRESSION: Unremarkable examination.
--- NOTE | 2021-08-07 02:59 | ECG_ITS ---
Test Reason : CHEST PAIN Blood Pressure : / mmHG Vent. Rate : 058 BPM Atrial Rate : 058 BPM P-R Int : 164 ms QRS Dur : 134 ms QT Int : 440 ms P-R-T Axes : 043 -07 054 degrees QTc Int : 431 ms Sinus bradycardia Left bundle branch block Abnormal ECG When compared with ECG of 16-JUN-2021 08:46, No significant changes seen Referred By: Alba Singh Electronically Signed By:KENNETH EVANS
--- NOTE | 2021-08-07 03:15 | ED_ITS ---
HPI - Chest Pain General Chief Complaint: Chest Pain Stated Complaint: Chest Pain Time Seen by Provider: 08/07/21 02:59 Source: patient Mode of arrival: EMS History of Present Illness HPI narrative: 66-year-old male with history of high blood pressure, who is brought in by EMS for being awoken from sleep with left anterior crushing chest pain that radiates into his back/arm/abdomen and associated with diaphoresis but denies any dizziness, shortness of breath, nausea. Patient has had his LAD stented and is currently on 90 mg of Brilinta and received aspirin in route. Patient states his pain is still the same. Patient denies the use of erectile dysfunction medication. Related Data Previous Rx's Medication Instructions Recorded oxycodone 5 mg capsule 5 mg PO Q8H PRN pain #9 caps 06/14/21 Allergies Allergy/AdvReac Type Severity Reaction Status Date / Time polyethylene glycol Allergy Itching Verified 06/16/21 10:56 Iodinated Contrast Media AdvReac Severe PARALYSIS/N Verified 08/07/21 03:33 [CONTRAST, IV] UMBNESS Enviro-Stress Allergy Unknown Unknown Uncoded 06/16/21 10:56 Review of Systems Review of Systems: Pertinent positives and negatives as stated in HPI 10 point review systems is otherwise negative. PMFSH Past Medical History Source: nursing notes reviewed Medical History Coronary artery disease Gout Hypertension Incarcerated left inguinal hernia Left bundle branch block No known health problems Peptic ulcer disease Surgical History H/O heart artery stent History of partial gastrectomy Social History Social History Advance Directives: No Physical Exam Vital Signs: Vital Signs: Last Vital Signs Temp 98.4 F 08/07/21 05:57 Pulse 62 08/07/21 05:57 Resp 19 08/07/21 05:57 BP 142/71 H 08/07/21 05:57 Pulse Ox 100 08/07/21 05:57 O2 Del Method 08/07/21 05:57 BMI result Body Mass Index 23.9 VITAL SIGNS: Reviewed. GENERAL: Well developed, well nourished, in no acute distress. HEAD: Normocephalic/atraumatic EYES: PERRLA, EOMI EARS: Ext canals without abnormality OROPHARYNX: no oral lesions noted, posterior pharynx clear LUNGS: Normal breath sounds. No adventitious sounds or accessory muscle use. Sp O2<100> CARDIOVASCULAR: Regular rate and rhythm without noted murmurs, no JVD or lower extremity edema. ABDOMEN: Soft, non-tender, non-distended with bowel sounds. MUSCULOSKELETAL: No tenderness, deformities, or effusions noted on gross inspection. EXTREMITIES: No cyanosis, clubbing or edema. SKIN: Inspection of the skin reveals no rashes, ulcerations, jaundice, pallor, or petechiae. NEUROLOGIC: Alert and oriented x 4. Strength and sensation to light touch were grossly intact x 4. Course Course Course Narrative: 66-year-old male with history and clinical presentation suggestive of possible ischemic event although on review serial EKGs as well as serial troponins there is no objective evidence to further support this, but given patient's reported history of minimal troponin or EKG changes when he had his LAD stented this still remains concerning. Remaining lab work negative for infection or anemia, pneumonia and low clinical suspicion for dissection. 0635: On re-evaluation patient reports that the pain has somewhat subsided. I discussed this with the inpatient hospitalist who agrees with admission for ACS. MDM - Chest Pain Lab Data Result diagrams: 08/07/21 03:19 08/07/21 03:19 Labs: Lab Results 08/07/21 08/07/21 08/07/21 Range/Units 03:19 03:19 03:19 WBC 4.1 L (4.8-10.8) X10*3/uL RBC 3.58 L (4.60-5.80) X10*6/uL Hgb 11.3 L (14.0-18.0) g/dl Hct 34.6 L (42.0-52.0) % MCV 96.6 (80.0-98.0) fL MCH 31.6 (27.0-33.0) pg MCHC 32.7 (31.0-36.0) g/dl RDW 13.2 (11.0-16.0) % Plt Count 221 (160-400) X10*3/uL MPV 9.2 L (9.4-12.4) fL Immature Gran % (Auto) 0.0 (0.0-0.4) % Neut % (Auto) 42.1 L (45-73) % Lymph % (Auto) 29.2 (20-40) % [place] % (Auto) 15.7 H (2-11) % Eos % (Auto) 12.0 H (0-4) % Baso % (Auto) 1.0 (0-2) % Lymph # (Auto) 1.2 (1.2-4.9) X10*3/uL [place] # (Auto) 0.6 (0.1-1.2) X10*3/uL Eos # (Auto) 0.5 H (0.0-0.4) X10*3/uL Baso # (Auto) 0.0 (0.0-0.2) X10*3/uL Abs Immat Gran (auto) 0.00 (0.00-0.03) X10*3/uL Absolute Neuts (auto) 1.7 L (2.0-8.3) x10*3/uL Absolute Nucleated RBC 0.000 (0.0-0.012) X10*3/uL Nucleated RBC % (auto) 0.0 (0.0-0.2) /100WBC PT (9.9-13.0) SEC INR (0.9-1.1) Sodium 141 (135-145) mmol/L Potassium 4.0 (3.3-5.1) mmol/L Chloride 109 H (96-108) mmol/L Carbon Dioxide 24 (22-29) mmol/L Anion Gap 12 (12-20) BUN 19 H (9-16) mg/dL Creatinine 0.95 (0.5-1.4) mg/dL Estim Creat Clear Calc 77.9 Estimated GFR > 60 Random Glucose 99 (60-115) mg/dL Calcium 9.3 (8.4-10.2) mg/dL Total Bilirubin 0.4 (0.0-1.0) mg/dL AST 45 H (5-37) U/L ALT 25 (0-40) U/L Alkaline Phosphatase 120 H (39-117) U/L Troponin I High Sens (<3.5-35.0) ng/L Total Protein 6.5 (6.5-8.0) g/dL Albumin 4.1 (3.5-5.0) g/dL Lipase 27 (8-78) U/L COVID-19 (JAMAAL) Negative (Negative) COVID-19 Clin Com See Note 08/07/21 08/07/21 08/07/21 Range/Units 03:19 03:19 04:25 WBC (4.8-10.8) X10*3/uL RBC (4.60-5.80) X10*6/uL Hgb (14.0-18.0) g/dl Hct (42.0-52.0) % MCV (80.0-98.0) fL MCH (27.0-33.0) pg MCHC (31.0-36.0) g/dl RDW (11.0-16.0) % Plt Count (160-400) X10*3/uL MPV (9.4-12.4) fL Immature Gran % (Auto) (0.0-0.4) % Neut % (Auto) (45-73) % Lymph % (Auto) (20-40) % [place] % (Auto) (2-11) % Eos % (Auto) (0-4) % Baso % (Auto) (0-2) % Lymph # (Auto) (1.2-4.9) X10*3/uL [place] # (Auto) (0.1-1.2) X10*3/uL Eos # (Auto) (0.0-0.4) X10*3/uL Baso # (Auto) (0.0-0.2) X10*3/uL Abs Immat Gran (auto) (0.00-0.03) X10*3/uL Absolute Neuts (auto) (2.0-8.3) x10*3/uL Absolute Nucleated RBC (0.0-0.012) X10*3/uL Nucleated RBC % (auto) (0.0-0.2) /100WBC PT 12.7 (9.9-13.0) SEC INR 1.1 (0.9-1.1) Sodium (135-145) mmol/L Potassium (3.3-5.1) mmol/L Chloride (96-108) mmol/L Carbon Dioxide (22-29) mmol/L Anion Gap (12-20) BUN (9-16) mg/dL Creatinine (0.5-1.4) mg/dL Estim Creat Clear Calc Estimated GFR Random Glucose (60-115) mg/dL Calcium (8.4-10.2) mg/dL Total Bilirubin (0.0-1.0) mg/dL AST (5-37) U/L ALT (0-40) U/L Alkaline Phosphatase (39-117) U/L Troponin I High Sens 6.0 5.7 (<3.5-35.0) ng/L Total Protein (6.5-8.0) g/dL Albumin (3.5-5.0) g/dL Lipase (8-78) U/L COVID-19 (JAMAAL) (Negative) COVID-19 Clin Com ECG Data ECG #1: Attestation: I personally reviewed and interpreted this ECG as follows: Prior ECG tracings: available for review Interpretation: Sinus bradycardia, LBBB, HR-58, no STEMI, UT/QTC are within normal limits. 0422: Sinus bradycardia, LBBB, HR-54, no STEMI, UT/QTC are within normal limits. Discharge Plan Discharge Clinical Impression: ACS (acute coronary syndrome), Coronary artery disease, Chest pain Patient Disposition: Admitted As Inpatient Prescriptions: No Action oxycodone 5 mg capsule 5 mg PO Q8H PRN (Reason: pain) Qty: 9 0RF
[2021-08-07 03:23] LABS: MANUAL DIFF FLAG NO
[2021-08-07 03:24] LABS: Eosinophils Absolute Auto 0.5 X10*3/uL (0.0-0.4); Hematocrit 34.6 % (42.0-52.0); Hemoglobin 11.3 g/dl (14.0-18.0); Lymphocytes Absolute Auto 1.2 X10*3/uL (1.2-4.9); Lymphocytes Percent Auto 29.2 % (20-40); Mean Corpuscular HGB Conc 32.7 g/dl (31.0-36.0); Mean Corpuscular Hemoglobin 31.6 pg (27.0-33.0); Mean Corpuscular Volume 96.6 fL (80.0-98.0); Mean Platelet Volume 9.2 fL (9.4-12.4); Monocytes Absolute Auto 0.6 X10*3/uL (0.1-1.2); Monocytes Percent Auto 15.7 % (2-11); Neutrophils Absolute Auto 1.7 x10*3/uL (2.0-8.3); Neutrophils Percent Auto 42.1 % (45-73); Platelet Count 221 X10*3/uL (160-400); Red Blood Count 3.58 X10*6/uL (4.60-5.80); Red Cell Distribution Width 13.2 % (11.0-16.0); White Blood Count 4.1 X10*3/uL (4.8-10.8)
[2021-08-07 03:30] LABS: INTERNATIONAL NORM RATIO 1.1 (0.9-1.1); Prothrombin Time 12.7 SEC (9.9-13.0)
[2021-08-07] MEDS: Nitroglycerin 0.4 MG TAB.SUBL SUBLINGUAL (03:31)
[2021-08-07 03:43] LABS: Alanine Aminotransferase 25 U/L (0-40); Albumin Level 4.1 g/dL (3.5-5.0); Alkaline Phosphatase 120 U/L (39-117); Anion Gap 12 (12-20); Aspartate Amino Transferase 45 U/L (5-37); Bilirubin Total 0.4 mg/dL (0.0-1.0); Blood Urea Nitrogen 19 mg/dL (9-16); Calcium 9.3 mg/dL (8.4-10.2); Carbon Dioxide 24 mmol/L (22-29); Chloride 109 mmol/L (96-108); Creatinine Clr Calc Pharmacy 77.9; Estimated Glomerular Filt Rate > 60; Glucose Random 99 mg/dL (60-115); Lipase 27 U/L (8-78); Sodium 141 mmol/L (135-145); Total Protein 6.5 g/dL (6.5-8.0)
[2021-08-07 03:45] LABS: COVID-19 Test Negative (Negative)
--- NOTE | 2021-08-07 03:45 | PC.NURSE ---
Assumed care of pt Pt c/o crushing midsternal CP radiating to RT arm and back, approx 1 hour [employer]. Pt states pain 10/. Per pt, became diaphoretic with SOB Per EMS, admin 324 ASA en route Hx of stent placement last December and cardiac arrest in March
--- NOTE | 2021-08-07 03:54 | PC.NURSE ---
Pt c/o worsening CP with some SOB Dr. Singh made aware. Per verbal order, repeat EKG and trop an hour after initial
--- NOTE | 2021-08-07 04:20 | ECG_ITS ---
Test Reason : CHEST PAIN Blood Pressure : / mmHG Vent. Rate : 054 BPM Atrial Rate : 054 BPM P-R Int : 162 ms QRS Dur : 142 ms QT Int : 460 ms P-R-T Axes : 042 -05 069 degrees QTc Int : 436 ms Sinus bradycardia Left bundle branch block Abnormal ECG When compared with ECG of 07-AUG-2021 03:00, No significant change was found Referred By: Alba Singh Electronically Signed By:KENNETH EVANS
[2021-08-07 04:51] LABS: Troponin-I High Sensitivity 5.7 ng/L (<3.5-35.0)
[2021-08-07] MEDS: Acetaminophen 325 MG TABLET 975 MG PO (07:23)
[2021-08-07 08:11] LABS: Appearance Urine CLEAR; Color Urine YELLOW; Glucose Urine UA NEG (NEG); Leukocyte Esterase Urine NEG (NEG); Nitrite Urine NEG (NEG); PH 5.5 (5.0-8.0); Specific Gravity - Urine >= 1.030 (1.005-1.025); Urine Blood NEG (NEG); Urine Ketones NEG (NEG); Urine Protein NEG (NEG-TRACE)
--- NOTE | 2021-08-07 08:51 | PC.NURSE ---
Hospitalist at bedside for evaluation
--- NOTE | 2021-08-07 09:20 | PHA.MEDREC ---
MED REC COMPLETE, NO ISSUES Pharmacy Consult ? Medication Reconciliation Pharmacy has completed the medication reconciliation.
--- NOTE | 2021-08-07 09:22 | P.HPHOSP_ITS ---
History of Present Illness Date of Service: 08/07/21 Chief Complaint: chest pain This is a 66 yo M with a PMH of CAD - s/p stenting of the LAD around 2020, now on DAPT who presented to [facility] ED with complaints of sudden onset left sided, pressure like pain, 10/10, radiating to his back/arm/neck which began the night prior to admission while he was sleeping. He reports that he was in his usual state of health when he went to bed and this pain woke him suddently. It is unclear if he tried taking his nitroglycerine, but when the pain did not subside, he called the paramedics and presented to the ED. The patient's pain has now long been resolved. His ED work up showed HS trop-I negative x 2 and EKG with a chronic LBBB and some non-specific ST/T wave changes. Given his high risk baseline, he will be now observed with cardiology on consult. Review of Systems Review of Systems: negative except HPI [facility] Medical History Coronary artery disease Gout Hypertension Incarcerated left inguinal hernia Left bundle branch block No known health problems Peptic ulcer disease Pertinent family history: Heart disease in mother Surgical History H/O heart artery stent History of partial gastrectomy Social History (Updated 08/07/21 @ 09:35 by Manish Olson MD) Alcohol intake: never Patient Tobacco Use Status: Never used Tobacco Use of substances other than those prescribed or required for medical reasons: No Advance Directives: No Meds Allergies Allergy/AdvReac Type Severity Reaction Status Date / Time polyethylene glycol Allergy Itching Verified 06/16/21 10:56 Iodinated Contrast Media AdvReac Severe PARALYSIS/N Verified 08/07/21 03:33 [CONTRAST, IV] UMBNESS Enviro-Stress Allergy Unknown Unknown Uncoded 06/16/21 10:56 Active Medications: Current Medications Acetaminophen (Acetaminophen 325 Mg Tablet) 650 mg PO Q6H PRN PRN Reason: Pain, Mild (Pain Scale 1-3) Al Hydroxide/Mg Hydroxide (Magnesium Hydrox/Alum Hydrox 30 Ml Oral.Susp) 10 ml PO QID PRN PRN Reason: Heartburn Allopurinol (Allopurinol 100 Mg Tablet) 100 mg PO DAILY@1700 [facility] Aspirin (Aspirin Enteric Coated 81 Mg Tablet.) 81 mg PO DAILY [facility] Atorvastatin Calcium (Atorvastatin Calcium 80 Mg Tablet) 80 mg PO BEDTIME [facility] Ondansetron HCl (Ondansetron Hcl 4 Mg/2 Ml Vial) 4 mg IVPUSH Q8H PRN PRN Reason: Nausea and Vomiting Pharmacy Consult (Consult Rx Perform Med Rec) 1 each MISCELLANE ONCE PRN PRN Reason: Consult order Sodium Chloride (0.9 % Sodium Chloride Flush 3 Ml Syringe) 3 ml IVFLUSH QSHIFT [facility] Home Medications Medication Instructions Recorded Confirmed Last Taken Type allopurinol 100 mg tablet 100 mg PO DAILY@1700 08/07/21 08/07/21 08/06/21 History aluminum-mag hydroxide-simethicone 10 ml PO QID PRN Heartburn 08/07/21 08/07/21 Unknown History 200 mg-200 mg-20 mg/5 mL oral susp (Antacid-Antigas) aspirin 81 mg capsule 81 mg PO DAILY 08/07/21 08/07/21 08/06/21 History atorvastatin 80 mg tablet 80 mg PO BEDTIME 08/07/21 08/07/21 08/06/21 History docusate sodium 100 mg capsule 100 mg PO BID 08/07/21 08/07/21 08/06/21 History isosorbide mononitrate 30 mg 30 mg PO DAILY 08/07/21 08/07/21 08/06/21 History tablet,extended release 24 hr losartan 25 mg tablet 25 mg PO DAILY 08/07/21 08/07/21 08/06/21 History metoprolol succinate 25 mg 25 mg PO BID 08/07/21 08/07/21 08/06/21 History tablet,extended release 24 hr metoprolol succinate 50 mg 50 mg PO BID 08/07/21 08/07/21 08/06/21 History tablet,extended release 24 hr nitroglycerin 0.4 mg sublingual 1 tab sublingual TID PRN Chest Pain 08/07/21 08/07/21 Unknown History tablet pantoprazole 40 mg tablet,delayed 40 mg PO BID@0630,1630 08/07/21 08/07/21 08/06/21 History release sucralfate 100 mg/mL oral 10 ml PO QID 08/07/21 08/07/21 08/06/21 History suspension (Carafate) ticagrelor 90 mg tablet (Brilinta) 90 mg PO BID 08/07/21 08/07/21 08/06/21 History Physical Exam Vital Signs and Narrative: Vital Signs: Last Vital Signs Temp 98.4 F 08/07/21 05:57 Pulse 60 08/07/21 08:05 Resp 16 08/07/21 08:05 BP 155/46 H 08/07/21 08:05 Pulse Ox 100 08/07/21 08:05 O2 Del Method 08/07/21 08:05 BMI result Body Mass Index 23.9 Const: Other: Constitutional - Awake and Alert, No apparent distress Eyes - PERRLA, EOMI Cardiovascular - S1S2, RRR, No edema Respiratory - Normal lung expansion, Normal respiratory effort, No respiratory distress, CTA bilaterally Gastrointestinal - NT / ND; +BS; No rebound or guarding - No CVA tenderness Extremities - no calf tenderness bilaterally, no swelling Musculoskeletal - Normal inspection, normal ROM Skin - Warm/Dry Neurological - Alert & oriented x3, No focal deficit Psychological - Appropriate affect Results Labs CBC and Chem 7: 08/07/21 03:19 08/07/21 03:19 Labs: Laboratory Results - last 24 hr 08/07/21 08/07/21 08/07/21 03:19 03:19 03:19 MCV 96.6 MCH 31.6 MCHC 32.7 RDW 13.2 Plt Count 221 MPV 9.2 L Immature Gran % (Auto) 0.0 Neut % (Auto) 42.1 L Lymph % (Auto) 29.2 [place] % (Auto) 15.7 H Eos % (Auto) 12.0 H Baso % (Auto) 1.0 Lymph # (Auto) 1.2 [place] # (Auto) 0.6 Eos # (Auto) 0.5 H Baso # (Auto) 0.0 Abs Immat Gran (auto) 0.00 Absolute Neuts (auto) 1.7 L Absolute Nucleated RBC 0.000 Nucleated RBC % (auto) 0.0 PT INR Anion Gap 12 Estim Creat Clear Calc 77.9 Estimated GFR > 60 Random Glucose 99 Calcium 9.3 Total Bilirubin 0.4 AST 45 H ALT 25 Alkaline Phosphatase 120 H Troponin I High Sens Total Protein 6.5 Albumin 4.1 Lipase 27 Urine Color Urine Appearance Urine pH Ur Specific [place] Urine Protein Urine Glucose (UA) Urine Ketones Urine Blood Urine Nitrite Ur Leukocyte Esterase COVID-19 ([facility]) Negative COVID-19 Clin Com See Note 08/07/21 08/07/21 08/07/21 03:19 03:19 04:25 MCV MCH MCHC RDW Plt Count MPV Immature Gran % (Auto) Neut % (Auto) Lymph % (Auto) [place] % (Auto) Eos % (Auto) Baso % (Auto) Lymph # (Auto) [place] # (Auto) Eos # (Auto) Baso # (Auto) Abs Immat Gran (auto) Absolute Neuts (auto) Absolute Nucleated RBC Nucleated RBC % (auto) PT 12.7 INR 1.1 Anion Gap Estim Creat Clear Calc Estimated GFR Random Glucose Calcium Total Bilirubin AST ALT Alkaline Phosphatase Troponin I High Sens 6.0 5.7 Total Protein Albumin Lipase Urine Color Urine Appearance Urine pH Ur Specific [place] Urine Protein Urine Glucose (UA) Urine Ketones Urine Blood Urine Nitrite Ur Leukocyte Esterase COVID-19 (JAMAAL) COVID-19 Clin Com 08/07/21 07:25 MCV MCH MCHC RDW Plt Count MPV Immature Gran % (Auto) Neut % (Auto) Lymph % (Auto) [place] % (Auto) Eos % (Auto) Baso % (Auto) Lymph # (Auto) [place] # (Auto) Eos # (Auto) Baso # (Auto) Abs Immat Gran (auto) Absolute Neuts (auto) Absolute Nucleated RBC Nucleated RBC % (auto) PT INR Anion Gap Estim Creat Clear Calc Estimated GFR Random Glucose Calcium Total Bilirubin AST ALT Alkaline Phosphatase Troponin I High Sens Total Protein Albumin Lipase Urine Color YELLOW Urine Appearance CLEAR Urine pH 5.5 Ur Specific [place] >= 1.030 H Urine Protein NEG Urine Glucose (UA) NEG Urine Ketones NEG Urine Blood NEG Urine Nitrite NEG Ur Leukocyte Esterase NEG COVID-19 (JAMAAL) COVID-19 Clin Com Imaging Radiologist's Impressions: Impressions Chest X-Ray 08/07/21 03:45 IMPRESSION: Unremarkable examination. Assessment and Plan (1) Chest pain: Status: Acute Plan 66 yo M with a PMH of CAD - s/p LAD stent in Dec 2020 now on DAPT, Peptic ulcer disease who presents to the ED with sudden onset chest pain. His initial trop (x 2) and EKG do not show acute NSTEMI/STEMI but given his high risk status, he will be observed with cardiology evaluation. 1. Chest pain trop x 2 neg; EKG with chronic LBBB and non-specific chages his chest pain is now resolved monitor on tele continue his baseline CAD meds cardiology consult for further recommendations 2. Peptic ulcer disease continue PPI and carafate Full Code DVT pptx, low risk -- compression stockings Quality Stroke Does the patient have a stroke diagnosis?: No VTE Prior VTE?: No VTE Risk Level:: Medical - low VTE Device Contraindication: Treatment Not Indicated VTE Drug Contraindication: Treatment Not Indicated
[2021-08-07 10:23] LABS: Troponin-I High Sensitivity 6.2 ng/L (<3.5-35.0)
--- NOTE | 2021-08-07 10:46 | PM.CNCAR ---
History of Present Illness History of Present Illness Date of Service: 08/07/21 Chief complaint: Chest Pain Narrative: This is a cardiology consultaton regarding chest pain. Patient generally goes to [facility]. According to their notes, it seems that he has had numerous hospitalizations for chest pains and lot of them are noncardiac in nature. In fact according to the patient he states he has been to [facility] 17 times in the last few months for chest pains and other complaints. At the current time, he is here because of chest pain that happened during that time he was sleeping. He describes it on the left side. It recurred after he came to the ER. EKG had shown a chronic left bundle-branch block and enzymes are unremarkable. At the current time, he is back to normal self. He has no other complaints. States he is very comfortable. Otherwise, there is a history of LAD stenting from in the last year. In the catheterization, no significant disease elsewhere based on notes. Review of Systems Review of Systems: Yes all other systems are reviewed and are negative Constitutional: Constitutional: Reports as per HPI Eyes: Eyes: Reports as per HPI ENT: Reports as per HPI Cardiovascular: Cardiovascular: Reports as per HPI, Denies acrocyanosis, Denies cool extremities, Reports chest pain, Denies leg edema, Denies lightheadedness, Denies palpitations and Denies dyspnea Respiratory: Respiratory: Reports as per HPI, Reports no additional respiratory complaints and Denies dyspnea Gastrointestinal: Gastrointestinal: Reports as per HPI and Reports no additional gastrointestinal complaints Genitourinary: Genitourinary: Reports no additional male genitourinary complaints and Reports as per HPI Musculoskeletal: Musculoskeletal: Reports no additional musculoskeletal complaints and Reports as per HPI Integumentary/Breasts: Skin/Breast: Reports system reviewed and no additional complaints, except as docu Neurologic: Reports system reviewed and no additional complaints, except as documented and Reports as per HPI Psychiatric: Psychiatric: Reports no additional psychiatric complaints and Reports as per HPI Endocrine: Endocrine: Reports no additional endocrine complaints, Reports as per HPI and Denies palpitations Hematologic/Lymphatic: Hematologic/Lymphatic: Reports no additional hematologic/lymphatic complaints and Reports as per HPI Allergic/Immunologic: Allergic/Immunologic: Reports no additional allergic/immunologic complaints and Reports as per HPI [facility] Past Medical History Medical History (Updated 08/07/21 @ 12:33 by Godwin Owens MD) Coronary artery disease Gout Hypertension Incarcerated left inguinal hernia Left bundle branch block No known health problems Peptic ulcer disease Family History Family History (Updated 08/07/21 @ 12:31 by Godwin Owens MD) Father Myocardial infarction Surgical History Surgical History H/O heart artery stent History of partial gastrectomy Social History Social History (Updated 08/07/21 @ 09:35 by Manish Olson MD) Alcohol intake: never Patient Tobacco Use Status: Never used Tobacco Use of substances other than those prescribed or required for medical reasons: No Advance Directives: No Meds Allergies Allergy/AdvReac Type Severity Reaction Status Date / Time polyethylene glycol Allergy Itching Verified 06/16/21 10:56 Iodinated Contrast Media AdvReac Severe PARALYSIS/N Verified 08/07/21 03:33 [CONTRAST, IV] UMBNESS Enviro-Stress Allergy Unknown Unknown Uncoded 06/16/21 10:56 Active Medications: Current Medications Acetaminophen (Acetaminophen 325 Mg Tablet) 650 mg PO Q6H PRN PRN Reason: Pain, Mild (Pain Scale 1-3) Al Hydroxide/Mg Hydroxide (Magnesium Hydrox/Alum Hydrox 30 Ml Oral.Susp) 10 ml PO QID PRN PRN Reason: Heartburn Allopurinol (Allopurinol 100 Mg Tablet) 100 mg PO DAILY@1700 [facility] Aspirin (Aspirin Enteric Coated 81 Mg Tablet.) 81 mg PO DAILY [facility] Atorvastatin Calcium (Atorvastatin Calcium 80 Mg Tablet) 80 mg PO BEDTIME [facility] Docusate Sodium (Docusate Sodium 100 Mg Capsule) 100 mg PO BID [facility] Isosorbide Mononitrate (Isosorbide Mononitrate 30 Mg Tab.Er.24h) 30 mg PO DAILY [facility]; Protocol Losartan Potassium (Losartan Potassium 25 Mg Tablet) 25 mg PO DAILY [facility]; Protocol Metoprolol Succinate (Metoprolol Succinate Er 25 Mg Tab.Er.24h) 25 mg PO BID [facility]; Protocol Metoprolol Succinate (Metoprolol Succinate Er 50 Mg Tab.Er.24h) 50 mg PO BID [facility]; Protocol Omeprazole (Omeprazole 20 Mg Capsule.) 20 mg PO BID@0630,1630 [facility] Ondansetron HCl (Ondansetron Hcl 4 Mg/2 Ml Vial) 4 mg IVPUSH Q8H PRN PRN Reason: Nausea and Vomiting Pharmacy Consult (Consult Rx Perform Med Rec) 1 each MISCELLANE ONCE PRN PRN Reason: Consult order Sodium Chloride (0.9 % Sodium Chloride Flush 3 Ml Syringe) 3 ml IVFLUSH QSHIFT [facility] Sucralfate (Sucralfate Oral Suspension 1 Gm/10 Ml Oral.Susp) 1 gm PO QID [facility] Ticagrelor (Ticagrelor 90 Mg Tablet) 90 mg PO BID [facility] Home Medications Medication Instructions Recorded Confirmed Last Taken Type allopurinol 100 mg tablet 100 mg PO DAILY@1700 08/07/21 08/07/21 08/06/21 History aluminum-mag hydroxide-simethicone 10 ml PO QID PRN Heartburn 08/07/21 08/07/21 Unknown History 200 mg-200 mg-20 mg/5 mL oral susp (Antacid-Antigas) aspirin 81 mg capsule 81 mg PO DAILY 08/07/21 08/07/21 08/06/21 History atorvastatin 80 mg tablet 80 mg PO BEDTIME 08/07/21 08/07/21 08/06/21 History docusate sodium 100 mg capsule 100 mg PO BID 08/07/21 08/07/21 08/06/21 History isosorbide mononitrate 30 mg 30 mg PO DAILY 08/07/21 08/07/21 08/06/21 History tablet,extended release 24 hr losartan 25 mg tablet 25 mg PO DAILY 08/07/21 08/07/21 08/06/21 History metoprolol succinate 25 mg 25 mg PO BID 08/07/21 08/07/21 08/06/21 History tablet,extended release 24 hr metoprolol succinate 50 mg 50 mg PO BID 08/07/21 08/07/21 08/06/21 History tablet,extended release 24 hr nitroglycerin 0.4 mg sublingual 1 tab sublingual TID PRN Chest Pain 08/07/21 08/07/21 Unknown History tablet pantoprazole 40 mg tablet,delayed 40 mg PO BID@0630,1630 08/07/21 08/07/21 08/06/21 History release sucralfate 100 mg/mL oral 10 ml PO QID 08/07/21 08/07/21 08/06/21 History suspension (Carafate) ticagrelor 90 mg tablet (Brilinta) 90 mg PO BID 08/07/21 08/07/2108/06/22 History Physical Exam Vital Signs: Vital Signs: Last Vital Signs Temp 98.4 F 08/07/21 05:57 Pulse 60 08/07/21 08:05 Resp 16 08/07/21 08:05 BP 155/46 H 08/07/21 08:05 Pulse Ox 100 08/07/21 08:05 O2 Del Method 08/07/21 08:05 BMI result Body Mass Index 23.9 Const: General: comfortable and no acute distress Orientation/consciousness: patient oriented x3 HEENT: Other: Unremarkable Head: Yes normal to inspection Neck: Neck: Yes normal visual inspection Chest: Chest palpation & inspection: normal inspection of the chest Resp: Auscultation: clear to auscultation bilaterally Cardio: Palpation: normal PMI Heart sounds: S1 normal heart sound present, S2 normal heart sound present, no gallops, no murmurs and no rubs GI: Palpation (GI): Soft to palpation Back/Spine/Pelvis: Other: unremarkable Skin: General skin exam: no rashes or lesions noted Neuro: General: patient oriented x3 Extrem: General: Yes normal to inspection Psych: Mental Status: mental status grossly normal Objective Labs and Meds Result diagrams: 08/07/21 03:19 08/07/21 03:19 Lab results: Laboratory Results - last 24 hr 08/07/21 08/07/21 08/07/21 03:19 03:19 03:19 WBC 4.1 L RBC 3.58 L Hgb 11.3 L Hct 34.6 L MCV 96.6 MCH 31.6 MCHC 32.7 RDW 13.2 Plt Count 221 MPV 9.2 L Immature Gran % (Auto) 0.0 Neut % (Auto) 42.1 L Lymph % (Auto) 29.2 [place] % (Auto) 15.7 H Eos % (Auto) 12.0 H Baso % (Auto) 1.0 Lymph # (Auto) 1.2 [place] # (Auto) 0.6 Eos # (Auto) 0.5 H Baso # (Auto) 0.0 Abs Immat Gran (auto) 0.00 Absolute Neuts (auto) 1.7 L Absolute Nucleated RBC 0.000 Nucleated RBC % (auto) 0.0 PT INR Sodium 141 Potassium 4.0 Chloride 109 H Carbon Dioxide 24 Anion Gap 12 BUN 19 H Creatinine 0.95 Estim Creat Clear Calc 77.9 Estimated GFR > 60 Random Glucose 99 Calcium 9.3 Total Bilirubin 0.4 AST 45 H ALT 25 Alkaline Phosphatase 120 H Troponin I High Sens Total Protein 6.5 Albumin 4.1 Lipase 27 Urine Color Urine Appearance Urine pH Ur Specific [place] Urine Protein Urine Glucose (UA) Urine Ketones Urine Blood Urine Nitrite Ur Leukocyte Esterase COVID-19 ([facility]AL) Negative COVID-19 Clin Com See Note 08/07/21 08/07/21 08/07/21 03:19 03:19 04:25 WBC RBC Hgb Hct MCV MCH MCHC RDW Plt Count MPV Immature Gran % (Auto) Neut % (Auto) Lymph % (Auto) [place] % (Auto) Eos % (Auto) Baso % (Auto) Lymph # (Auto) [place] # (Auto) Eos # (Auto) Baso # (Auto) Abs Immat Gran (auto) Absolute Neuts (auto) Absolute Nucleated RBC Nucleated RBC % (auto) PT 12.7 INR 1.1 Sodium Potassium Chloride Carbon Dioxide Anion Gap BUN Creatinine Estim Creat Clear Calc Estimated GFR Random Glucose Calcium Total Bilirubin AST ALT Alkaline Phosphatase Troponin I High Sens 6.0 5.7 Total Protein Albumin Lipase Urine Color Urine Appearance Urine pH Ur Specific [place] Urine Protein Urine Glucose (UA) Urine Ketones Urine Blood Urine Nitrite Ur Leukocyte Esterase COVID-19 ([facility]AMAAL) COVID-19 [facility] Com 08/07/21 08/07/21 07:25 09:55 WBC RBC Hgb Hct MCV MCH MCHC RDW Plt Count MPV Immature Gran % (Auto) Neut % (Auto) Lymph % (Auto) [place] % (Auto) Eos % (Auto) Baso % (Auto) Lymph # (Auto) [place] # (Auto) Eos # (Auto) Baso # (Auto) Abs Immat Gran (auto) Absolute Neuts (auto) Absolute Nucleated RBC Nucleated RBC % (auto) PT INR Sodium Potassium Chloride Carbon Dioxide Anion Gap BUN Creatinine Estim Creat Clear Calc Estimated GFR Random Glucose Calcium Total Bilirubin AST ALT Alkaline Phosphatase Troponin I High Sens 6.2 Total Protein Albumin Lipase Urine Color YELLOW Urine Appearance CLEAR Urine pH 5.5 Ur Specific [place] >= 1.030 H Urine Protein NEG Urine Glucose (UA) NEG Urine Ketones NEG Urine Blood NEG Urine Nitrite NEG Ur Leukocyte Esterase NEG COVID-19 ([facility]AMAAL) COVID-19 Clin Com ECG Interpretation: EKG shows sinus rhythm with left bundle-branch block pattern. Imaging Radiologist's impression: Impressions Chest X-Ray 08/07/21 03:45 IMPRESSION: Unremarkable examination. Assessment and Plan (1) Chest pain: Status: Acute (2) Coronary artery disease: Status: Acute (3) NICM (nonischemic cardiomyopathy): Status: Acute (4) Left bundle branch block: Status: Acute Plan Recent cardiology consultation from [facility] reviewed. Based on that information, it seems he had PCI to LAD last December. Since then he has been hospitalized more than 16 times for different reasons. Additionally, he does not have residual coronary disease. His LVEF has been on 30/5 to 40%. His EKG findings of left bundle-branch block or chronic. At the current time, he has had 3 different sets of high sensitivity troponins and all of them are completely normal. Based on the above information, he does not need any further inpatient cardiac workup. He can be discharged and follow up with his own bulker. Procedures Date of Service Date of Service: 08/07/21
[2021-08-07] MEDS: Metoprolol Succinate ER 25 MG TAB.ER.24H PO (11:08)
[2021-08-07] MEDS: Aspirin Enteric Coated 81 MG TABLET.DR PO (11:09)
[2021-08-07] MEDS: Losartan Potassium 25 MG TABLET PO (11:09)
[2021-08-07] MEDS: Ticagrelor 90 MG TABLET PO (11:09)
[2021-08-07] MEDS: Isosorbide Mononitrate 30 MG TAB.ER.24H PO (11:09)
[2021-08-07] MEDS: Metoprolol Succinate ER 50 MG TAB.ER.24H PO (11:09)
[2021-08-07] MEDS: Sucralfate Oral Suspension 1 GM/10 ML ORAL.SUSP PO (13:57)
--- NOTE | 2021-08-07 15:34 | PM.DS ---
DS: Providers Provider Date of Service: 08/07/21 Date of admission: 08/07/21 09:12 Primary care physician: Unknown Physician Consults: 08/07/21 09:14 Consult to Cardiology Routine Consulting Provider: Godwin Owens Reason for consultation: chest pain, history of LAD stent on DAPT DS: Diagnosis Discharge Diagnosis (1) Chest pain: Status: Acute (2) Coronary artery disease: Status: Acute (3) NICM (nonischemic cardiomyopathy): Status: Acute (4) Left bundle branch block: Status: Acute DS: Summary Hospital Course Hospital Course: From the admission H&P: 'This is a 66 yo M with a PMH of CAD - s/p stenting of the LAD around 2020, now on DAPT who presented to [facility] ED with complaints of sudden onset left sided, pressure like pain, 10/10, radiating to his back/arm/neck which began the night prior to admission while he was sleeping. He reports that he was in his usual state of health when he went to bed and this pain woke him suddently. It is unclear if he tried taking his nitroglycerine, but when the pain did not subside, he called the paramedics and presented to the ED. The patient's pain has now long been resolved. His ED work up showed HS trop-I negative x 2 and EKG with a chronic LBBB and some non-specific ST/T wave changes. Given his high risk baseline, he will be now observed with cardiology on consult.' Hospital Course patient was admitted to [facility]. serial trop I were negative x 3. his ekg did not show any new ischemic changes. he was evaluated by cardiology who felt his patinet was likely non cardiac in nature. patient's chest pain resolved and he is advised to f/u with his primary cardiology with whom he has a f/u in 1-2 weeks. Time Spent with Patient Time attestation: Total time spent providing and/or coordinating discharge services: Discharge coordination time: Less than 30 minutes Quality: Safe Use of Opioids Does Pt have an Active Cancer Diagnosis on the Problem List?: No Quality: Stroke Does the patient have a stroke diagnosis?: No Physical Exam Vital Signs: Vital Signs: Last Vital Signs Temp 98.4 F 08/07/21 05:57 Pulse 57 08/07/21 11:07 Resp 20 08/07/21 11:07 BP 144/73 H 08/07/21 11:07 Pulse Ox 100 08/07/21 11:07 O2 Del Method 08/07/21 11:07 BMI result Body Mass Index 23.9 Const: Other: General - no acute distress, appears comfortable Cardiovascular - regular rate and rhythm, S1-S2 Lungs - normal respiratory effort, clear to auscultation bilaterally, no wheezing Abdomen - soft, nontender, no rebound or guarding Extremities - no edema bilaterally Neuro - awake and alert, no focal deficits DS: Data Data Completed and Pending Labs on day of discharge: Laboratory Results - last 24 hr 08/07/21 08/07/21 08/07/21 03:19 03:19 03:19 WBC 4.1 L RBC 3.58 L Hgb 11.3 L Hct 34.6 L MCV 96.6 MCH 31.6 MCHC 32.7 RDW 13.2 Plt Count 221 MPV 9.2 L Immature Gran % (Auto) 0.0 Neut % (Auto) 42.1 L Lymph % (Auto) 29.2 [place] % (Auto) 15.7 H Eos % (Auto) 12.0 H Baso % (Auto) 1.0 Lymph # (Auto) 1.2 [place] # (Auto) 0.6 Eos # (Auto) 0.5 H Baso # (Auto) 0.0 Abs Immat Gran (auto) 0.00 Absolute Neuts (auto) 1.7 L Absolute Nucleated RBC 0.000 Nucleated RBC % (auto) 0.0 PT INR Sodium 141 Potassium 4.0 Chloride 109 H Carbon Dioxide 24 Anion Gap 12 BUN 19 H Creatinine 0.95 Estim Creat Clear Calc 77.9 Estimated GFR > 60 Random Glucose 99 Calcium 9.3 Total Bilirubin 0.4 AST 45 H ALT 25 Alkaline Phosphatase 120 H Troponin I High Sens Total Protein 6.5 Albumin 4.1 Lipase 27 Urine Color Urine Appearance Urine pH Ur Specific [place] Urine Protein Urine Glucose (UA) Urine Ketones Urine Blood Urine Nitrite Ur Leukocyte Esterase COVID-19 (JAMAAL) Negative COVID-19 Clin Com See Note 08/07/21 08/07/21 08/07/21 03:19 03:19 04:25 WBC RBC Hgb Hct MCV MCH MCHC RDW Plt Count MPV Immature Gran % (Auto) Neut % (Auto) Lymph % (Auto) [place] % (Auto) Eos % (Auto) Baso % (Auto) Lymph # (Auto) [place] # (Auto) Eos # (Auto) Baso # (Auto) Abs Immat Gran (auto) Absolute Neuts (auto) Absolute Nucleated RBC Nucleated RBC % (auto) PT 12.7 INR 1.1 Sodium Potassium Chloride Carbon Dioxide Anion Gap BUN Creatinine Estim Creat Clear Calc Estimated GFR Random Glucose Calcium Total Bilirubin AST ALT Alkaline Phosphatase Troponin I High Sens 6.0 5.7 Total Protein Albumin Lipase Urine Color Urine Appearance Urine pH Ur Specific [place] Urine Protein Urine Glucose (UA) Urine Ketones Urine Blood Urine Nitrite Ur Leukocyte Esterase COVID-19 (JAMAAL) COVID-19 [place] Window Com 08/07/21 08/07/21 07:25 09:55 WBC RBC Hgb Hct MCV MCH MCHC RDW Plt Count MPV Immature Gran % (Auto) Neut % (Auto) Lymph % (Auto) [place] % (Auto) Eos % (Auto) Baso % (Auto) Lymph # (Auto) [place] # (Auto) Eos # (Auto) Baso # (Auto) Abs Immat Gran (auto) Absolute Neuts (auto) Absolute Nucleated RBC Nucleated RBC % (auto) PT INR Sodium Potassium Chloride Carbon Dioxide Anion Gap BUN Creatinine Estim Creat Clear Calc Estimated GFR Random Glucose Calcium Total Bilirubin AST ALT Alkaline Phosphatase Troponin I High Sens 6.2 Total Protein Albumin Lipase Urine Color YELLOW Urine Appearance CLEAR Urine pH 5.5 Ur Specific [place] >= 1.030 H Urine Protein NEG Urine Glucose (UA) NEG Urine Ketones NEG Urine Blood NEG Urine Nitrite NEG Ur Leukocyte Esterase NEG COVID-19 (JAMAAL) COVID-19 Clin Com Discharge Plan Discharge Patient Disposition: Home, Self-Care Referrals: Physician,Unknown J [Primary Care Provider] - 1 Week Discharge Medications: Continued docusate sodium 100 mg Capsule 100 mg PO BID allopurinol 100 mg Tablet 100 mg PO DAILY@1700 losartan 25 mg Tablet 25 mg PO DAILY isosorbide mononitrate 30 mg Tablet Extended Release 24 Hr 30 mg PO DAILY Brilinta 90 mg Tablet 90 mg PO BID pantoprazole 40 mg Tablet,Delayed Release (Dr/Ec) 40 mg PO BID@0630,1630 atorvastatin 80 mg Tablet 80 mg PO BEDTIME metoprolol succinate 50 mg Tablet Extended Release 24 Hr 50 mg PO BID Rx Instructions: TAKES WITH 25 MG TAB FOR TOTAL DOSE OF 75 MG metoprolol succinate 25 mg Tablet Extended Release 24 Hr 25 mg PO BID Rx Instructions: TAKE WITH 50 MG TAB FOR TOTAL DOSE OF 75 MG aspirin 81 mg Capsule 81 mg PO DAILY sucralfate [Carafate] 100 mg/mL Suspension 10 ml PO QID Rx Instructions: swish in mouth and swallow; use after food/drink nitroglycerin 0.4 mg tablet, sublingual 1 tab sublingual TID PRN (Reason: Chest Pain) alum-mag hydroxide-simeth [Antacid-Antigas] 200-200-20 mg/5 mL suspension 10 ml PO QID PRN (Reason: Heartburn) Discharge Orders: Discharge Order (Routine); Ordered 08/07/21 Ordered By: Manish Olson Diet: advance to usual diet Activity on Discharge: As tolerated Stand Alone Forms: Patient Portal Discharge page Care Plan Goals: To stay healthy and out of the hospital. Health Concerns: Chest pain Plan of Treatment: Take your cardiac meds as prescribed. Follow up with your plumbing inspector. Assessment: see discharge summary Discharge Date/Time: 08/07/21 15:37
--- NOTE | 2021-08-07 15:39 | MHC.CM.PN ---
PATIENT IS DC HOME - SELF CARE RN AWARE OF PLAN.
== END 2021-08-07 15:37 | disposition home or self-care (01) ==
LOC: HO.ED 06:48 → HO.EDOVER 09:43
PROVIDERS: Admitting Provider Family Medicine; Emergency Provider Student in an Organized Health Care Education/Training Program; Visit Provider Family Medicine
DX: R07.9 Chest pain, unspecified (principal); I25.10 Atherosclerotic heart disease of native coronary artery without angina pectoris; I42.8 Other cardiomyopathies; I44.7 Left bundle-branch block, unspecified; I24.9 Acute ischemic heart disease, unspecified; I10 Essential (primary) hypertension; R00.1 Bradycardia, unspecified; M10.9 Gout, unspecified; Z20.822 Contact with and (suspected) exposure to COVID-19; Z95.5 Presence of coronary angioplasty implant and graft; Z98.890 Other specified postprocedural states; Z90.3 Acquired absence of stomach [part of]; Z88.8 Allergy status to other drugs, medicaments and biological substances; Z91.041 Radiographic dye allergy status; Z79.82 Long term (current) use of aspirin; Z79.899 Other long term (current) drug therapy
CPT/HCPCS: 36415; 71045; 80053; 81003; 83690; 84484; 85025; 85610; 87635; 93005; 99205; 99219; 99285

== ENCOUNTER 2021-09-04 11:00 | Outpatient (REF) | payer MEDICAID, SELFPAY ==
[2021-09-04 11:29] LABS: MANUAL DIFF FLAG NO
[2021-09-04 12:03] LABS: Basophils Absolute Auto 0.1 X10*3/uL (0.0-0.2); Basophils Percent Auto 1.1 % (0-2); Eosinophils Absolute Auto 0.2 X10*3/uL (0.0-0.4); Eosinophils Percent Auto 3.4 % (0-4); Hematocrit 31.8 % (42.0-52.0); Hemoglobin 10.3 g/dl (14.0-18.0); Imm Gran Abs Auto 0.01 X10*3/uL (0.00-0.03); Imm Gran Pct Auto 0.2 % (0.0-0.4); Lymphocytes Absolute Auto 1.1 X10*3/uL (1.2-4.9); Lymphocytes Percent Auto 23.3 % (20-40); Mean Corpuscular HGB Conc 32.4 g/dl (31.0-36.0); Mean Corpuscular Volume 95.8 fL (80.0-98.0); Mean Platelet Volume 9.3 fL (9.4-12.4); Monocytes Absolute Auto 0.6 X10*3/uL (0.1-1.2); Monocytes Percent Auto 12.5 % (2-11); Neutrophils Absolute Auto 2.8 x10*3/uL (2.0-8.3); Neutrophils Percent Auto 59.5 % (45-73); Platelet Count 292 X10*3/uL (160-400); Red Blood Count 3.32 X10*6/uL (4.60-5.80); Red Cell Distribution Width 14.2 % (11.0-16.0); White Blood Count 4.7 X10*3/uL (4.8-10.8)
[2021-09-04 12:32] LABS: Alanine Aminotransferase 21 U/L (0-40); Albumin Level 3.8 g/dL (3.5-5.0); Alkaline Phosphatase 87 U/L (39-117); Anion Gap 10 (12-20); Aspartate Amino Transferase 51 U/L (5-37); Bilirubin Total 0.9 mg/dL (0.0-1.0); Blood Urea Nitrogen 11 mg/dL (9-16); Carbon Dioxide 28 mmol/L (22-29); Chloride 105 mmol/L (96-108); Estimated Glomerular Filt Rate > 60; Glucose Random 89 mg/dL (60-115); Potassium 4.4 mmol/L (3.3-5.1); Sodium 139 mmol/L (135-145); Total Protein 6.1 g/dL (6.5-8.0)
== END 2021-09-04 11:01 | disposition home or self-care (01) ==
LOC: HO.LAB 11:00
PROVIDERS: PCP Internal Medicine; Visit Provider Internal Medicine
DX: K52.9 Noninfective gastroenteritis and colitis, unspecified (principal); I25.10 Atherosclerotic heart disease of native coronary artery without angina pectoris; I10 Essential (primary) hypertension
CPT/HCPCS: 36415; 80053; 85025

== ENCOUNTER 2021-11-07 11:37 | Outpatient (REF) | payer MEDICAID, SELFPAY ==
[2021-11-07 12:09] LABS: MANUAL DIFF FLAG NO
[2021-11-07 12:37] LABS: Basophils Absolute Auto 0.1 X10*3/uL (0.0-0.2); Basophils Percent Auto 1.1 % (0-2); Eosinophils Absolute Auto 0.2 X10*3/uL (0.0-0.4); Eosinophils Percent Auto 2.7 % (0-4); Hematocrit 36.3 % (42.0-52.0); Imm Gran Abs Auto 0.01 X10*3/uL (0.00-0.03); Imm Gran Pct Auto 0.2 % (0.0-0.4); Lymphocytes Absolute Auto 1.4 X10*3/uL (1.2-4.9); Lymphocytes Percent Auto 24.4 % (20-40); Mean Corpuscular HGB Conc 33.1 g/dl (31.0-36.0); Mean Corpuscular Hemoglobin 31.3 pg (27.0-33.0); Mean Corpuscular Volume 94.8 fL (80.0-98.0); Mean Platelet Volume 9.1 fL (9.4-12.4); Monocytes Absolute Auto 0.6 X10*3/uL (0.1-1.2); Neutrophils Absolute Auto 3.4 x10*3/uL (2.0-8.3); Neutrophils Percent Auto 60.6 % (45-73); Platelet Count 276 X10*3/uL (160-400); Red Blood Count 3.83 X10*6/uL (4.60-5.80); Red Cell Distribution Width 14.9 % (11.0-16.0); White Blood Count 5.5 X10*3/uL (4.8-10.8)
[2021-11-07 12:56] LABS: Anion Gap 16 (12-20); Blood Urea Nitrogen 20 mg/dL (9-16); Calcium 9.7 mg/dL (8.4-10.2); Carbon Dioxide 25 mmol/L (22-29); Chloride 105 mmol/L (96-108); Estimated Glomerular Filt Rate > 60; Glucose Random 93 mg/dL (60-115); Iron 105 mcg/dL (45-160); Percent Iron Saturation 30 % (15-50); Potassium 4.5 mmol/L (3.3-5.1); Sodium 141 mmol/L (135-145); Total Iron Binding Capacity 346 mcg/dL (228-428); Unsaturated Iron Binding 241 ug/dL
== END 2021-11-07 11:38 | disposition home or self-care (01) ==
LOC: HO.LAB 11:37
PROVIDERS: PCP Internal Medicine; Visit Provider Internal Medicine
DX: I25.10 Atherosclerotic heart disease of native coronary artery without angina pectoris (principal); I10 Essential (primary) hypertension; D64.9 Anemia, unspecified; M10.9 Gout, unspecified
CPT/HCPCS: 36415; 80048; 83540; 84550; 85025

== ENCOUNTER 2022-01-19 04:45 | Inpatient (IN) | payer MEDICARE, MEDICAID, SELFPAY ==
[2022-01-19] VITALS (30 sets, daily range): BP systolic 105–176; BP diastolic 54–95; PULSE 71–121; RESP 14–31; TEMP 34.5–38.5; O2SAT 96–100; BMI 27.7; BMI 25.5
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
--- NOTE | ~2022-01-19 | XR_ITS ---
EXAMINATION: XR CHEST CLINICAL INFORMATION: NG tube placement COMPARISON: Chest radiograph from 01/19/2022 TECHNIQUE: Frontal view of the chest was obtained. FINDINGS: Interval placement of enteric tube coursing to the level of the stomach. Endotracheal tube terminates approximately 3.6 cm from the level of the janis. Redemonstration of bronchial wall thickening throughout the bilateral lung prieto. Bibasilar atelectasis. Bilateral low lung volumes. No pneumothorax. Trachea is midline. Cardiac mediastinal silhouette is stable. No large pleural effusion. Osseous structures are intact. Soft tissues are unremarkable. XR/XR chest 1V IMPRESSION: 1. Interval placement of enteric tube coursing to the level of the stomach. 2. Endotracheal tube terminates approximately 3.6 cm from the level of the janis. 3. Redemonstration of bronchial wall thickening throughout the bilateral lung prieto. 4. Bibasilar atelectasis. 5. Bilateral low lung volumes.
--- NOTE | ~2022-01-19 | XR_ITS ---
EXAMINATION: XR CHEST CLINICAL INFORMATION: Chest pain. Hemoptysis. COMPARISON: None TECHNIQUE: Frontal view of the chest was obtained. FINDINGS: The cardiac and mediastinal contours are stable. The lungs are clear. No pleural effusion or pneumothorax. Postsurgical changes under the left hemidiaphragm. No acute bone abnormality. XR/XR chest 1V IMPRESSION: No evidence for acute disease in the chest.
--- NOTE | ~2022-01-19 | US_ITS ---
EXAMINATION: US ABDOMEN LIMITED CLINICAL INFORMATION: Elevated liver function tests. COMPARISON: Previous CT of the abdomen and pelvis May 2021 TECHNIQUE: Real-time imaging of the right upper quadrant abdominal viscera. Very limited exam. FINDINGS: PANCREAS: Not visualized due to bowel gas LIVER: No focal liver lesion. Intra and extrahepatic biliary duct dilatation. GALLBLADDER: The gallbladder is upper normal in size. No gallstones are seen. The gallbladder wall is slightly thickened measuring 0.5 cm. COMMON BILE DUCT: The visualized common bile duct appears dilated measuring up to 1.4 cm. The distal common bile duct in the head of the pancreas is not visualized. RIGHT KIDNEY: Not seen.. FREE FLUID: No ascites. US/US abdomen limited IMPRESSION: Very limited exam. Intra and extrahepatic biliary duct dilatation. Upper normal-size gallbladder. Findings are similar to previous CT scan May 2021. The pancreas and right kidney are not seen and the liver is not well seen.
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
--- NOTE | ~2022-01-19 | XR_ITS ---
EXAMINATION: XR CHEST CLINICAL INFORMATION: Chest pain. COMPARISON: 01/24/2022 chest radiographs, chest CT scan dated 01/19/2022. TECHNIQUE: Frontal view of the chest was obtained. FINDINGS: Mild coarsened interstitial markings are seen bilaterally without focal consolidation or definitive pleural effusion. The heart and mediastinal structures are unremarkable. Surgical clips overlie the epigastric region. XR/XR chest 1V IMPRESSION: Mild coarsened interstitial markings bilaterally consistent with the previously seen chronic interstitial changes without definitive acute abnormality.
--- NOTE | ~2022-01-19 | XR_ITS ---
EXAMINATION: XR CHEST CLINICAL INFORMATION: Hemoptysis COMPARISON: Chest x-ray January 23, 2022 TECHNIQUE: 2 views of the chest were obtained. FINDINGS: Cardiac silhouette is normal in size. The lungs are well aerated. Subtle patchy airspace opacities of the lower lungs, more prominent on the right. No lobar consolidation. No pleural effusion or pneumothorax. Mild degenerative changes of the spine. Surgical clips of the upper abdomen. XR/XR chest 2V IMPRESSION: Subtle patchy airspace opacities of the lower lungs, more prominent on the right. Findings may represent atelectasis, however, a developing infiltrate is not excluded.
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
--- NOTE | 2022-01-19 05:10 | PC.NURSE ---
pt became nonresponsive for a brief 5 sec or less. pt responded to verbal and tactile stimuli, pt states when he is in alot of pain he goes out. dr stewart at bedside at the time along with resp at bedside.
[2022-01-19 05:11] LABS: MANUAL DIFF FLAG NO
[2022-01-19 05:12] LABS: Basophils Absolute Auto 0.1 X10*3/uL (0.0-0.2); Basophils Percent Auto 0.9 % (0-2); Eosinophils Absolute Auto 0.2 X10*3/uL (0.0-0.4); Eosinophils Percent Auto 3.2 % (0-4); Hematocrit 38.9 % (42.0-52.0); Lymphocytes Absolute Auto 1.5 X10*3/uL (1.2-4.9); Lymphocytes Percent Auto 27.2 % (20-40); Mean Corpuscular HGB Conc 33.4 g/dl (31.0-36.0); Mean Corpuscular Hemoglobin 32.2 pg (27.0-33.0); Mean Corpuscular Volume 96.3 fL (80.0-98.0); Mean Platelet Volume 9.8 fL (9.4-12.4); Monocytes Absolute Auto 0.6 X10*3/uL (0.1-1.2); Monocytes Percent Auto 11.1 % (2-11); Neutrophils Absolute Auto 3.3 x10*3/uL (2.0-8.3); Neutrophils Percent Auto 57.6 % (45-73); Platelet Count 266 X10*3/uL (160-400); Red Blood Count 4.04 X10*6/uL (4.60-5.80); Red Cell Distribution Width 14.6 % (11.0-16.0); White Blood Count 5.7 X10*3/uL (4.8-10.8)
[2022-01-19 05:17] LABS: VBG Base Excess -0.1 mmol/L; VBG HCO3 23 mmol/L (22-26); VBG pCO2 34 mmHg; VBG pH 7.43 (7.32-7.43); VBG pO2 31 mmHg
[2022-01-19 05:19] LABS: Carbon Monoxide POC 12.6 %
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
--- NOTE | 2022-01-19 05:20 | PC.NURSE ---
Critical of carbon .6 reported to CATRACHO Palomino and Dr. Argueta
[2022-01-19 05:21] LABS: Carbon Monoxide Refer to POC result; Venous Blood Gas Refer to POC result
[2022-01-19 05:23] LABS: INTERNATIONAL NORM RATIO 1.1 (0.9-1.1); Prothrombin Time 12.4 SEC (10.0-13.1)
[2022-01-19 05:29] LABS: Alanine Aminotransferase 43 U/L (0-40); Albumin Level 4.3 g/dL (3.5-5.0); Alkaline Phosphatase 121 U/L (39-117); Anion Gap 15 (12-20); Aspartate Amino Transferase 63 U/L (5-37); Blood Urea Nitrogen 16 mg/dL (9-16); Calcium 9.8 mg/dL (8.4-10.2); Carbon Dioxide 23 mmol/L (22-29); Creatinine Clr Calc Pharmacy 85.9; Estimated Glomerular Filt Rate > 60; Glucose Random 119 mg/dL (60-115); Total Protein 6.7 g/dL (6.5-8.0)
[2022-01-19 05:33] LABS: B Type Natriuretic Peptide 58 pg/mL (<100)
[2022-01-19 05:34] LABS: Chloride 109 mmol/L (96-108); Potassium 4.1 mmol/L (3.3-5.1)
[2022-01-19 05:37] LABS: Sodium 144 mmol/L (135-145)
[2022-01-19 05:38] LABS: Troponin-I High Sensitivity 6.9 ng/L (<3.5-35.0)
[2022-01-19] MEDS: Etomidate 20 MG/10 ML VIAL IVPUSH (05:41)
[2022-01-19] MEDS: Rocuronium Bromide 50 MG/5 ML VIAL 100 MG IVPUSH (05:42)
[2022-01-19] MEDS: propofoL 1,000 MG/100 ML VIAL 15.79 MG IVCONT (06:00)
--- NOTE | 2022-01-19 06:01 | PC.NURSE ---
pre intubation vitals,78pulse, 100 o2, 18R, b/p 131/68 5:41am 20mg etomidate, 5:42 100mg Rocuronium. Pt was a difficult intubation. 7.5 tube at 24 at the lip.
[2022-01-19 06:39] LABS: ABG Base Excess -2.8 mmol/L; ABG HCO3 21 mmol/L (22-26); ABG pCO2 34 mmHg (32-45); ABG pO2 400 mmHg (83-108)
[2022-01-19 06:51] LABS: COVID-19 Test Negative (Negative)
--- NOTE | 2022-01-19 07:14 | PC.NURSE ---
OG TUBE PLACED - 16 FR JARAMILLO CATHETER PLACED. REPORT GIVEN TO DAY SHIFT RN ANDRE
--- NOTE | 2022-01-19 07:30 | PC.NURSE ---
pt is intubated on mine shifter, icu md at bedside.
--- NOTE | 2022-01-19 07:37 | PC.NURSE ---
pt is moving merna hands, soft restraints initiated. lungs - cta. temperature sensing nelson inserted# 16, patent and draining. clear secretions noted from mouth, suctioned for a small amt earlier by dr. stewart. endotracheal tuby 7.5, # 25 at the lip, and soft and non-tender, bx = x 4 quads.
--- NOTE | 2022-01-19 07:44 | PC.NURSE ---
propofol increased to maximum dose of 50mcg/kg/min for increased restlessness.
--- NOTE | 2022-01-19 07:48 | PC.NURSE ---
pt's eyes are wide opened and is responding to verbal stimuli.
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
[2022-01-19 08:23] LABS: Appearance Urine Clear; Color Urine Yellow; Glucose Urine UA Negative (Negative); Leukocyte Esterase Urine Negative (Negative); Nitrite Urine Negative (Negative); Specific Gravity - Urine 1.025 (1.005-1.025); UMIC TRIGGER UACC YES; Urine Blood Negative (Negative); Urine Ketones Trace mg/dL (Negative); Urine Protein 30 (1+) mg/dL (Neg-Trace)
[2022-01-19 08:28] LABS: Bacteria Urine None Seen (None Seen); RBC Urine 0-2 /HPF (0-2); WBC Urine 0-5 /HPF (0-5)
--- NOTE | 2022-01-19 08:36 | PC.NURSE ---
ADEOLA DOMINGUEZ- ASKED FOR PT OR FAMILY TO CONTACT [phone]
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
[2022-01-19] MEDS: Albuterol Sulfate 2.5 MG/0.5 ML VIAL.NEB INHALE ×4 (08:45→19:07)
[2022-01-19] MEDS: propofoL 1,000 MG/100 ML VIAL 26.31 MG IVCONT ×5 (08:57→22:03)
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
[2022-01-19] MEDS: 0.9 % Sodium Chloride 1,000 ML 100 ML IVCONT ×2 (09:01→18:29)
[2022-01-19] MEDS: Chlorhexidine Gluc Oral Rinse 15 ML MOUTHWASH BUCCAL ×3 (09:02→23:57)
[2022-01-19] MEDS: Heparin Sodium,Porcine 5,000 UNIT/ML VIAL 5000 UNIT SUBCUT ×3 (09:02→23:57)
[2022-01-19] MEDS: Famotidine/PF 20 MG/2 ML VIAL IVPUSH ×2 (09:02→20:17)
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
[2022-01-19] MEDS: fentaNYL citrate/NS 1,000 MCG/100 ML PLAST..BAG 2.5 MCG IVCONT (09:08)
[2022-01-19] MEDS: Midazolam HCl/PF 2 MG/2 ML VIAL 4 MG IVPUSH (09:31)
[2022-01-19 09:40] LABS: B Type Natriuretic Peptide 55 pg/mL (<100); Troponin-I High Sensitivity 25.9 ng/L (<3.5-35.0)
[2022-01-19 10:23] LABS: ABG Refer to POC result
--- NOTE | 2022-01-19 10:32 | MHC.CLN ---
PT IS INTUBATED AND SEDATED CURRENTLY NPO IF TF NEEDED; RECOMMEND PROMOTE AT MAX GOAL RATE 65ML/HR TO PROVIDE 1560KCALS (2255KCALS WITH SEDATION; 26KCALS/KG), 97.5G (1.1G/KG), 1309ML FREE WATER FROM FORMULA MONITOR TOLERANCE, RESIDUALS AND LYTES SEE FULL CLINICAL NUTRITION ASSESSMENT
[2022-01-19] MEDS: Ampicillin Sodium/Sulbactam Na 1.5 GM in 0.9 % Sodium Chloride 100 ML IV ×3 (10:35→22:04)
--- NOTE | 2022-01-19 10:38 | PHA.MEDREC ---
Pharmacy Consult ? Medication Reconciliation Pharmacy has completed the medication reconciliation. Patient is intubated, med rec completed by claim history and past discharge summary. Avril Cole, BooneD
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
[2022-01-19] MEDS: 0.9 % Sodium Chloride 500 ML IV (14:02)
[2022-01-19] MEDS: 0.9 % Sodium Chloride Flush 3 ML SYRINGE IVFLUSH ×3 (14:04→23:47)
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
[2022-01-19] MEDS: fentaNYL citrate/NS 1,000 MCG/100 ML PLAST..BAG 7.5 MCG IVCONT (18:39)
[2022-01-19] MEDS: Acetylcysteine 10 % 400 MG/4 ML VIAL INHALE (19:06)
[2022-01-19] MEDS: Metoclopramide HCl 10 MG/2 ML VIAL IVPUSH (22:03)
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
[2022-01-20] VITALS (30 sets, daily range): BP systolic 95–157; BP diastolic 35–68; PULSE 73–112; RESP 10–23; TEMP 34.8–39.1; O2SAT 90–100; BMI 27.1
[2022-01-20] MEDS: propofoL 1,000 MG/100 ML VIAL 26.31 MG IVCONT ×3 (00:35→07:05)
[2022-01-20 01:10] LABS: Carbon Monoxide POC 1.6 %
[2022-01-20 01:10] LABS: Carbon Monoxide Refer to POC result
[2022-01-20] MEDS: Ampicillin Sodium/Sulbactam Na 1.5 GM in 0.9 % Sodium Chloride 100 ML IV (03:29)
[2022-01-20] MEDS: Metoclopramide HCl 10 MG/2 ML VIAL IVPUSH (03:29)
[2022-01-20] MEDS: 0.9 % Sodium Chloride 1,000 ML 100 ML IVCONT ×3 (03:29→23:18)
[2022-01-20 04:52] LABS: VBG Base Excess -2.1 mmol/L; VBG HCO3 22 mmol/L (22-26); VBG pCO2 37 mmHg; VBG pH 7.38 (7.32-7.43); VBG pO2 59 mmHg
[2022-01-20 04:54] LABS: Venous Blood Gas Refer to POC result
[2022-01-20 05:13] LABS: Hemoglobin 10.7 g/dl (14.0-18.0); Mean Corpuscular HGB Conc 33.4 g/dl (31.0-36.0); Mean Corpuscular Hemoglobin 32.3 pg (27.0-33.0); Mean Corpuscular Volume 96.7 fL (80.0-98.0); Mean Platelet Volume 9.7 fL (9.4-12.4); Platelet Count 178 X10*3/uL (160-400); Red Blood Count 3.31 X10*6/uL (4.60-5.80); Red Cell Distribution Width 15.2 % (11.0-16.0); White Blood Count 7.1 X10*3/uL (4.8-10.8)
[2022-01-20 05:30] LABS: Alanine Aminotransferase 218 U/L (0-40); Albumin Level 3.2 g/dL (3.5-5.0); Alkaline Phosphatase 166 U/L (39-117); Anion Gap 10 (12-20); Aspartate Amino Transferase 442 U/L (5-37); Bilirubin Total 1.5 mg/dL (0.0-1.0); Blood Urea Nitrogen 18 mg/dL (9-16); Calcium 8.1 mg/dL (8.4-10.2); Carbon Dioxide 23 mmol/L (22-29); Chloride 111 mmol/L (96-108); Creatinine Clr Calc Pharmacy 91.3; Estimated Glomerular Filt Rate > 60; Glucose Random 123 mg/dL (60-115); Magnesium 1.9 mg/dL (1.6-2.6); Phosphorus 2.9 mg/dL (2.7-4.5); Potassium 3.9 mmol/L (3.3-5.1); Sodium 140 mmol/L (135-145)
[2022-01-20] MEDS: Chlorhexidine Gluc Oral Rinse 15 ML MOUTHWASH BUCCAL (07:33)
[2022-01-20] MEDS: Heparin Sodium,Porcine 5,000 UNIT/ML VIAL 5000 UNIT SUBCUT ×3 (07:33→23:17)
[2022-01-20] MEDS: Famotidine/PF 20 MG/2 ML VIAL IVPUSH ×2 (07:33→19:57)
[2022-01-20] MEDS: 0.9 % Sodium Chloride Flush 3 ML SYRINGE IVFLUSH ×3 (07:33→23:18)
[2022-01-20] MEDS: fentaNYL citrate/NS 1,000 MCG/100 ML PLAST..BAG 7.5 MCG IVCONT (07:33)
[2022-01-20] MEDS: Acetylcysteine 10 % 400 MG/4 ML VIAL INHALE (08:54)
[2022-01-20] MEDS: Albuterol Sulfate 2.5 MG/0.5 ML VIAL.NEB INHALE ×2 (08:54→19:49)
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
[2022-01-20] MEDS: vancomycin HCL 1,250 MG in 0.9 % Sodium Chloride 250 ML 166.67 MG IV (10:12)
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
[2022-01-20] MEDS: Ticagrelor 90 MG TABLET PO (19:56)
[2022-01-20] MEDS: Acetaminophen 325 MG TABLET 650 MG PO (20:07)
[2022-01-20] MEDS: Ketorolac Tromethamine 15 MG/ML VIAL IVPUSH (20:53)
[2022-01-21] VITALS (19 sets, daily range): BP systolic 106–175; BP diastolic 42–92; PULSE 73–91; RESP 12–20; TEMP 36.3–37.6; O2SAT 94–99; BMI 27.7
[2022-01-21] MEDS: Albuterol/Iprat 2.5/0.5MG 3 ML AMPUL.NEB INHALE ×3 (00:02→11:14)
--- NOTE | 2022-01-21 04:11 | PC.NURSE ---
Throughout shift patient's urine output noted to be steadily decreasing to approximately 10-20 mL/hr. Rossy Chavez AVIATION CONSULTANT notified. New order for NS to be increased to 125 mL/hr and for labs to be drawn early. Will continue to closely monitor output.
[2022-01-21 06:38] LABS: MANUAL DIFF FLAG NO
[2022-01-21 06:42] LABS: Basophils Percent Auto 0.5 % (0-2); Eosinophils Absolute Auto 0.1 X10*3/uL (0.0-0.4); Hematocrit 30.7 % (42.0-52.0); Imm Gran Abs Auto 0.02 X10*3/uL (0.00-0.03); Imm Gran Pct Auto 0.3 % (0.0-0.4); Lymphocytes Absolute Auto 1.1 X10*3/uL (1.2-4.9); Lymphocytes Percent Auto 17.5 % (20-40); Mean Corpuscular HGB Conc 32.6 g/dl (31.0-36.0); Mean Corpuscular Hemoglobin 31.9 pg (27.0-33.0); Mean Corpuscular Volume 98.1 fL (80.0-98.0); Mean Platelet Volume 9.6 fL (9.4-12.4); Monocytes Absolute Auto 0.6 X10*3/uL (0.1-1.2); Monocytes Percent Auto 10.1 % (2-11); Neutrophils Absolute Auto 4.2 x10*3/uL (2.0-8.3); Neutrophils Percent Auto 69.6 % (45-73); Platelet Count 151 X10*3/uL (160-400); Red Blood Count 3.13 X10*6/uL (4.60-5.80); Red Cell Distribution Width 15.7 % (11.0-16.0)
[2022-01-21 06:58] LABS: Alanine Aminotransferase 149 U/L (0-40); Alkaline Phosphatase 174 U/L (39-117); Anion Gap 10 (12-20); Aspartate Amino Transferase 163 U/L (5-37); Bilirubin Total 1.2 mg/dL (0.0-1.0); Blood Urea Nitrogen 18 mg/dL (9-16); Calcium 8.1 mg/dL (8.4-10.2); Carbon Dioxide 21 mmol/L (22-29); Chloride 116 mmol/L (96-108); Creatinine Clr Calc Pharmacy 91.3; Estimated Glomerular Filt Rate > 60; Glucose Random 89 mg/dL (60-115); Phosphorus 2.5 mg/dL (2.7-4.5); Potassium 3.8 mmol/L (3.3-5.1); Sodium 143 mmol/L (135-145); Total Protein 4.8 g/dL (6.5-8.0)
[2022-01-21] MEDS: Ticagrelor 90 MG TABLET PO ×2 (08:05→19:20)
[2022-01-21] MEDS: Heparin Sodium,Porcine 5,000 UNIT/ML VIAL 5000 UNIT SUBCUT ×3 (08:06→23:05)
[2022-01-21] MEDS: Aspirin 81 MG TAB.CHEW PO (08:06)
[2022-01-21] MEDS: Famotidine/PF 20 MG/2 ML VIAL IVPUSH ×2 (08:07→19:20)
[2022-01-21] MEDS: Ketorolac Tromethamine 15 MG/ML VIAL IVPUSH ×2 (08:15→19:20)
[2022-01-21] MEDS: KCl 20 mEq in 5% Dex/0.45% Sod 20 MEQ/1,000 ML IV.SOLN 150 MEQ IVCONT (08:32)
--- NOTE | 2022-01-21 08:58 | MHC.CLN ---
F/U SPOKE WITH NURSING PT EXTUBATED PASSED BEDSIDE SWALLOW PER NSG RECOMMEND 2GM NA DIET MONITOR PO INTAKE
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
--- NOTE | 2022-01-21 11:46 | PC.NURSE ---
Pt up and out of bed this am, ambulated in the hallway with a contact guard with no acute distress. Pt's nelson catheter discontinued at 1050, tolerated well. Pt downgrading to Mini (South[facility]) and is aware of the plan of care and is agreeable. Report given to receiving RN on the floor who will continue with plan of care.
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
[2022-01-21] MEDS: KCl 20 mEq in 5% Dex/0.45% Sod 20 MEQ/1,000 ML IV.SOLN 100 MEQ IVCONT (15:59)
--- NOTE | 2022-01-21 18:30 | PC.NURSE ---
[employer] at bedside along with Man zhu , officer Robin asking pt to be discharged as no earlier than Wednesday , officer states hes trying to help pt with housing , and finishing up paperwork . Laura gave pt gift card and some morrison that was placed in sealed envelope and brought down to security . Officer information on pt chart.
[2022-01-21] MEDS: 0.9 % Sodium Chloride Flush 3 ML SYRINGE IVFLUSH (19:21)
[2022-01-22] VITALS (14 sets, daily range): BP systolic 120–177; BP diastolic 60–84; PULSE 68–90; RESP 16–18; TEMP 36.6–37.2; O2SAT 96–99
--- NOTE | 2022-01-22 | ECG_ITS ---
Test Reason : chest pain Blood Pressure : / mmHG Vent. Rate : 078 BPM Atrial Rate : 078 BPM P-R Int : 132 ms QRS Dur : 122 ms QT Int : 406 ms P-R-T Axes : 000 180 103 degrees QTc Int : 462 ms Suspect limb lead reversal, interpretation assumes no reversal Sinus rhythm with Premature supraventricular complexes Intra-ventricular conduction delay Abnormal ECG When compared with ECG of 19-JAN-2022 04:56, Significant changes have occurred advise repeat study Referred By: Gela Penaloza Electronically Signed By:GELACIO PRIETO MD
[2022-01-22] MEDS: Ketorolac Tromethamine 15 MG/ML VIAL IVPUSH (00:20)
[2022-01-22] MEDS: hydrALAZINE HCl 20 MG/ML VIAL 5 MG IVPUSH (00:21)
[2022-01-22] MEDS: KCl 20 mEq in 5% Dex/0.45% Sod 20 MEQ/1,000 ML IV.SOLN 100 MEQ IVCONT (00:23)
[2022-01-22] MEDS: Albuterol/Iprat 2.5/0.5MG 3 ML AMPUL.NEB INHALE ×5 (00:28→23:33)
[2022-01-22 00:41] LABS: Troponin-I High Sensitivity 28.1 ng/L (<3.5-35.0)
--- NOTE | 2022-01-22 01:20 | PC.NURSE ---
around 0000, pt c/o 10/10 chest pain that radiates down right arm. tiger text sent to Dr. Penaloza, EKG ordered and done, labs ordered and done, BP also elevated at time, IV hydralazine ordered and administered, Dr. Penaloza OK'd to give IV toradol early.
[2022-01-22] MEDS: Aspirin 81 MG TAB.CHEW PO (07:55)
[2022-01-22] MEDS: Famotidine/PF 20 MG/2 ML VIAL IVPUSH ×2 (07:55→21:18)
[2022-01-22] MEDS: Ticagrelor 90 MG TABLET PO ×2 (07:55→21:18)
[2022-01-22] MEDS: Heparin Sodium,Porcine 5,000 UNIT/ML VIAL 5000 UNIT SUBCUT (07:55)
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
[2022-01-22] MEDS: 0.9 % Sodium Chloride Flush 3 ML SYRINGE IVFLUSH ×2 (15:06→21:18)
[2022-01-23] VITALS (11 sets, daily range): BP systolic 119–182; BP diastolic 58–84; PULSE 64–87; RESP 18–20; TEMP 36.6–37.2; O2SAT 95–98
--- NOTE | 2022-01-23 | ECG_ITS ---
Test Reason : Chest pain Blood Pressure : / mmHG Vent. Rate : 078 BPM Atrial Rate : 078 BPM P-R Int : 152 ms QRS Dur : 122 ms QT Int : 410 ms P-R-T Axes : 047 016 018 degrees QTc Int : 467 ms Normal sinus rhythm Left bundle branch block Abnormal ECG When compared with ECG of 22-JAN-2022 00:05, No significant changes seen Referred By: Gela Penaloza Electronically Signed By:GELACIO PRIETO MD
--- NOTE | 2022-01-23 05:17 | PM.EVENT ---
Event Note Date of Service: 01/23/22 Event Note: pt w chest pain and coughing scant amount of blood. will obtain ekg, trop. stopped toradol
[2022-01-23] MEDS: Morphine Sulfate 4 MG/ML CARTRIDGE IVPUSH (05:43)
[2022-01-23 05:49] LABS: Hematocrit 29.6 % (42.0-52.0); Hemoglobin 9.9 g/dl (14.0-18.0); Mean Corpuscular HGB Conc 33.4 g/dl (31.0-36.0); Mean Corpuscular Hemoglobin 31.9 pg (27.0-33.0); Mean Corpuscular Volume 95.5 fL (80.0-98.0); Mean Platelet Volume 9.6 fL (9.4-12.4); Platelet Count 176 X10*3/uL (160-400); Red Cell Distribution Width 15.5 % (11.0-16.0); White Blood Count 4.5 X10*3/uL (4.8-10.8)
[2022-01-23 06:12] LABS: Troponin-I High Sensitivity 15.3 ng/L (<3.5-35.0)
[2022-01-23 06:21] LABS: Alanine Aminotransferase 80 U/L (0-40); Albumin Level 3.3 g/dL (3.5-5.0); Alkaline Phosphatase 137 U/L (39-117); Anion Gap 12 (12-20); Aspartate Amino Transferase 71 U/L (5-37); Bilirubin Direct 0.3 mg/dL (0.0-0.5); Bilirubin Total 0.8 mg/dL (0.0-1.0); Blood Urea Nitrogen 18 mg/dL (9-16); Carbon Dioxide 21 mmol/L (22-29); Chloride 114 mmol/L (96-108); Creatinine Clr Calc Pharmacy 93.6; Estimated Glomerular Filt Rate > 60; Glucose Fasting 95 mg/dL (60-99); Magnesium 1.8 mg/dL (1.6-2.6); Potassium 4.4 mmol/L (3.3-5.1); Sodium 143 mmol/L (135-145); Total Protein 5.3 g/dL (6.5-8.0)
[2022-01-23] MEDS: Albuterol/Iprat 2.5/0.5MG 3 ML AMPUL.NEB INHALE ×4 (06:31→23:29)
[2022-01-23] MEDS: Enoxaparin Sodium 40 MG/0.4 ML SYRINGE SUBCUT (08:21)
[2022-01-23] MEDS: Ticagrelor 90 MG TABLET PO ×2 (08:25→20:32)
[2022-01-23] MEDS: 0.9 % Sodium Chloride Flush 3 ML SYRINGE IVFLUSH ×3 (08:25→20:32)
[2022-01-23] MEDS: Isosorbide Mononitrate 30 MG TAB.ER.24H PO (08:25)
[2022-01-23] MEDS: Aspirin 81 MG TAB.CHEW PO (08:25)
[2022-01-23] MEDS: Famotidine/PF 20 MG/2 ML VIAL IVPUSH ×2 (08:25→20:32)
[2022-01-23] MEDS: Losartan Potassium 25 MG TABLET PO (08:25)
[2022-01-23] MEDS: Metoprolol Succinate ER 50 MG TAB.ER.24H PO (08:26)
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
[2022-01-23] MEDS: guaiFENesin 200 MG/10 ML 10 ML LIQUID PO (15:07)
[2022-01-23] MEDS: Azithromycin 500 MG TABLET PO (15:07)
[2022-01-23] MEDS: HYDROmorphone HCl 0.5 MG/0.5 ML SYRINGE IVPUSH (15:07)
[2022-01-23] MEDS: cefTRIAXone sodium 1 GM in 0.9 % Sodium Chloride 50 ML IV (15:07)
[2022-01-24] VITALS (9 sets, daily range): BP systolic 105–160; BP diastolic 58–76; PULSE 65–79; RESP 17–20; TEMP 36.7–36.9; O2SAT 95–98
[2022-01-24] MEDS: Albuterol/Iprat 2.5/0.5MG 3 ML AMPUL.NEB INHALE ×4 (05:45→23:20)
[2022-01-24 06:28] LABS: Anion Gap 13 (12-20); Blood Urea Nitrogen 22 mg/dL (9-16); Calcium 9.4 mg/dL (8.4-10.2); Carbon Dioxide 24 mmol/L (22-29); Chloride 110 mmol/L (96-108); Creatinine Clr Calc Pharmacy 91.3; Estimated Glomerular Filt Rate > 60; Glucose Fasting 92 mg/dL (60-99); Hematocrit 33.1 % (42.0-52.0); Hemoglobin 10.6 g/dl (14.0-18.0); Mean Corpuscular Hemoglobin 31.4 pg (27.0-33.0); Mean Corpuscular Volume 97.9 fL (80.0-98.0); Mean Platelet Volume 9.8 fL (9.4-12.4); Platelet Count 215 X10*3/uL (160-400); Potassium 4.3 mmol/L (3.3-5.1); Red Blood Count 3.38 X10*6/uL (4.60-5.80); Red Cell Distribution Width 15.5 % (11.0-16.0); Sodium 143 mmol/L (135-145); White Blood Count 4.5 X10*3/uL (4.8-10.8)
[2022-01-24] MEDS: Ticagrelor 90 MG TABLET PO ×2 (09:14→21:05)
[2022-01-24] MEDS: Isosorbide Mononitrate 30 MG TAB.ER.24H PO (09:14)
[2022-01-24] MEDS: Aspirin 81 MG TAB.CHEW PO (09:14)
[2022-01-24] MEDS: Famotidine/PF 20 MG/2 ML VIAL IVPUSH ×2 (09:14→21:05)
[2022-01-24] MEDS: Enoxaparin Sodium 40 MG/0.4 ML SYRINGE SUBCUT (09:15)
[2022-01-24] MEDS: Metoprolol Succinate ER 50 MG TAB.ER.24H PO (09:15)
[2022-01-24] MEDS: 0.9 % Sodium Chloride Flush 3 ML SYRINGE IVFLUSH ×2 (09:15→16:34)
[2022-01-24] MEDS: Losartan Potassium 25 MG TABLET PO (09:15)
[2022-01-24] MEDS: Azithromycin 500 MG TABLET PO (09:15)
[2022-01-24] MEDS: HYDROmorphone HCl 0.5 MG/0.5 ML SYRINGE IVPUSH (09:16)
[2022-01-24] MEDS: cefTRIAXone sodium 1 GM in 0.9 % Sodium Chloride 50 ML IV (09:17)
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
[2022-01-24] MEDS: guaiFENesin 200 MG/10 ML 10 ML LIQUID PO (21:13)
[2022-01-25] VITALS (10 sets, daily range): BP systolic 119–160; BP diastolic 66–78; PULSE 61–84; RESP 17–18; TEMP 36.6–37.2; O2SAT 94–99
[2022-01-25] MEDS: 0.9 % Sodium Chloride Flush 3 ML SYRINGE IVFLUSH ×4 (00:18→22:13)
[2022-01-25] MEDS: Albuterol/Iprat 2.5/0.5MG 3 ML AMPUL.NEB INHALE ×3 (05:32→19:28)
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
[2022-01-25] MEDS: Metoprolol Succinate ER 50 MG TAB.ER.24H PO (10:15)
[2022-01-25] MEDS: Isosorbide Mononitrate 30 MG TAB.ER.24H PO (10:15)
[2022-01-25] MEDS: Aspirin 81 MG TAB.CHEW PO (10:16)
[2022-01-25] MEDS: Famotidine/PF 20 MG/2 ML VIAL IVPUSH ×2 (10:17→22:10)
[2022-01-25] MEDS: Losartan Potassium 25 MG TABLET PO (10:17)
[2022-01-25] MEDS: Ticagrelor 90 MG TABLET PO ×2 (10:17→22:09)
[2022-01-25] MEDS: Enoxaparin Sodium 40 MG/0.4 ML SYRINGE SUBCUT (10:17)
[2022-01-25] MEDS: Azithromycin 500 MG TABLET PO (10:17)
[2022-01-25] MEDS: cefTRIAXone sodium 1 GM in 0.9 % Sodium Chloride 50 ML IV (10:17)
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
[2022-01-25] MEDS: methylPREDNISolone Sod Succ 40 MG/ML VIAL IVPUSH (11:41)
[2022-01-26] VITALS (11 sets, daily range): BP systolic 129–184; BP diastolic 66–85; PULSE 68–93; RESP 16–18; TEMP 36.2–37.5; O2SAT 95–99
--- NOTE | 2022-01-26 | ECG_ITS ---
Test Reason : CHEST PAIN Blood Pressure : / mmHG Vent. Rate : 089 BPM Atrial Rate : 089 BPM P-R Int : 162 ms QRS Dur : 132 ms QT Int : 422 ms P-R-T Axes : 057 016 074 degrees QTc Int : 513 ms Normal sinus rhythm with sinus arrhythmia Left bundle branch block Abnormal ECG When compared with ECG of 23-JAN-2022 09:44, T wave amplitude has increased in Anterior leads Referred By: Durga España Electronically Signed By:GELACIO PRIETO MD
[2022-01-26] MEDS: Albuterol/Iprat 2.5/0.5MG 3 ML AMPUL.NEB INHALE ×3 (00:06→11:25)
[2022-01-26 06:09] LABS: Anion Gap 15 (12-20); Blood Urea Nitrogen 19 mg/dL (9-16); Calcium 9.2 mg/dL (8.4-10.2); Carbon Dioxide 19 mmol/L (22-29); Chloride 109 mmol/L (96-108); Creatinine Clr Calc Pharmacy 101.3; Estimated Glomerular Filt Rate > 60; Glucose Fasting 109 mg/dL (60-99); Potassium 4.5 mmol/L (3.3-5.1); Sodium 138 mmol/L (135-145)
--- NOTE | 2022-01-26 07:32 | PC.NURSE ---
0655 am pt is c/o chest pain accross chest going to left side and jaw. dr España notified and present at bedside examining pt new orders rceved ; ekg , chest, labs pt also stated he cough some blood in bathroom didnt witness. report given to mike HAYDEN
[2022-01-26] MEDS: Aspirin 81 MG TAB.CHEW PO (07:33)
[2022-01-26] MEDS: Nitroglycerin 0.4 MG TAB.SUBL SUBLINGUAL (07:33)
[2022-01-26 07:50] LABS: Hematocrit 30.5 % (42.0-52.0); Hemoglobin 10.2 g/dl (14.0-18.0); Mean Corpuscular HGB Conc 33.4 g/dl (31.0-36.0); Mean Corpuscular Volume 95.6 fL (80.0-98.0); Mean Platelet Volume 9.7 fL (9.4-12.4); Platelet Count 252 X10*3/uL (160-400); Red Blood Count 3.19 X10*6/uL (4.60-5.80); Red Cell Distribution Width 14.7 % (11.0-16.0); White Blood Count 6.3 X10*3/uL (4.8-10.8)
[2022-01-26 08:16] LABS: Troponin-I High Sensitivity 6.5 ng/L (<3.5-35.0)
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
[2022-01-26] MEDS: Metoprolol Succinate ER 50 MG TAB.ER.24H PO (09:09)
[2022-01-26] MEDS: Losartan Potassium 25 MG TABLET PO (09:09)
[2022-01-26] MEDS: Ticagrelor 90 MG TABLET PO (09:10)
[2022-01-26] MEDS: Famotidine/PF 20 MG/2 ML VIAL IVPUSH ×2 (09:10→20:54)
[2022-01-26] MEDS: Isosorbide Mononitrate 30 MG TAB.ER.24H PO (09:10)
[2022-01-26] MEDS: Enoxaparin Sodium 40 MG/0.4 ML SYRINGE SUBCUT (09:10)
[2022-01-26] MEDS: Azithromycin 500 MG TABLET PO (09:10)
[2022-01-26] MEDS: 0.9 % Sodium Chloride Flush 3 ML SYRINGE IVFLUSH ×3 (09:12→21:02)
[2022-01-26] MEDS: cefTRIAXone sodium 1 GM in 0.9 % Sodium Chloride 50 ML IV (09:19)
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
--- NOTE | 2022-01-26 20:58 | PC.NURSE ---
pt states that cardiology team in the [facility] told him to stop taking Bilinta at 01/24/22 because last year 01/24/21 had stent to put it on. after year of this med should discontinued and coughing with blood. so, not given.
[2022-01-27] VITALS (8 sets, daily range): BP systolic 137–178; BP diastolic 64–96; PULSE 67–84; RESP 18–20; TEMP 36.6–37.5; O2SAT 96–98
[2022-01-27] MEDS: Albuterol/Iprat 2.5/0.5MG 3 ML AMPUL.NEB INHALE ×4 (05:36→21:50)
[2022-01-27] MEDS: 0.9 % Sodium Chloride Flush 3 ML SYRINGE IVFLUSH ×3 (10:00→21:36)
[2022-01-27] MEDS: Isosorbide Mononitrate 30 MG TAB.ER.24H PO (10:01)
[2022-01-27] MEDS: Metoprolol Succinate ER 50 MG TAB.ER.24H PO (10:01)
[2022-01-27] MEDS: Losartan Potassium 25 MG TABLET PO (10:01)
[2022-01-27] MEDS: Azithromycin 500 MG TABLET PO (10:01)
[2022-01-27] MEDS: Aspirin 81 MG TAB.CHEW PO (10:01)
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
--- NOTE | 2022-01-27 11:55 | MHC.CM.PN ---
Addendum entered by Lidia Nunez 01/27/22 15:49: SPOKE WITH JERMAINE PORTER AND INFORMED THAT DC WILL NOT HAPPEN TODAY. FRIEND VAISHALI BROUGHT CLOTHES FOR PT Addendum entered by Lidia Nunez 01/27/22 15:13: patient dc cancelled for today due to chest pain, cm continues to follow Original Note: DP: PT IS MEDICALLY CLEARED FOR DISCHARGE TODAY, HOME, NO SERVICES. RN AWARE. PT WILL BE DC TO A HOTEL, HE IS UNSURE WHICH ONE BUT WHEN FRIEND VAISHALI COMES TO TRANSPORT, HE WILL LET CM KNOW. PT IS AWARE HE WILL NEED [employer] FUNDS FROM SECURITY BEFORE DC. FRIEND VAISHALI WILL BE BRINGING HIM CLOTHERS AND SHOES WELL. LIST OF COMMUNITY RESOURCES PROVIDED TO PATIENT ([employer] CONTACTS, [employer] CONTACTS)
--- NOTE | 2022-01-27 13:23 | ECG_ITS ---
Test Reason : CP Blood Pressure : / mmHG Vent. Rate : 082 BPM Atrial Rate : 082 BPM P-R Int : 132 ms QRS Dur : 130 ms QT Int : 430 ms P-R-T Axes : 043 015 038 degrees QTc Int : 502 ms Sinus rhythm with Premature supraventricular complexes Left bundle branch block Abnormal ECG When compared with ECG of 26-JAN-2022 07:05, Premature supraventricular complexes are now Present Referred By: Durga España Electronically Signed By:GELACIO PRIETO MD
[2022-01-27] MEDS: HYDROmorphone HCl 0.5 MG/0.5 ML SYRINGE IVPUSH (14:36)
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
[2022-01-27] MEDS: Omeprazole 20 MG CAPSULE.DR PO (16:43)
[2022-01-27] MEDS: amLODIPine Besylate 5 MG TABLET PO (16:43)
[2022-01-28] VITALS: BP 127/62; PULSE 71; RESP 18; TEMP 36.9; O2SAT 95
[2022-01-28 04:00] VITALS: BP 152/78; PULSE 71; RESP 18; TEMP 37.2; O2SAT 97
[2022-01-28] MEDS: Omeprazole 20 MG CAPSULE.DR PO (05:10)
[2022-01-28] MEDS: HYDROmorphone HCl 0.5 MG/0.5 ML SYRINGE IVPUSH (05:10)
[2022-01-28 06:07] LABS: Hematocrit 31.7 % (42.0-52.0); Hemoglobin 10.5 g/dl (14.0-18.0); Mean Corpuscular HGB Conc 33.1 g/dl (31.0-36.0); Mean Corpuscular Hemoglobin 31.9 pg (27.0-33.0); Mean Corpuscular Volume 96.4 fL (80.0-98.0); Mean Platelet Volume 9.5 fL (9.4-12.4); Platelet Count 314 X10*3/uL (160-400); Red Blood Count 3.29 X10*6/uL (4.60-5.80); Red Cell Distribution Width 14.9 % (11.0-16.0); White Blood Count 4.4 X10*3/uL (4.8-10.8)
[2022-01-28 07:19] LABS: Anion Gap 10 (12-20); Blood Urea Nitrogen 19 mg/dL (9-16); Calcium 9.3 mg/dL (8.4-10.2); Carbon Dioxide 26 mmol/L (22-29); Chloride 106 mmol/L (96-108); Creatinine Clr Calc Pharmacy 97.3; Estimated Glomerular Filt Rate > 60; Glucose Random 92 mg/dL (60-115); Sodium 138 mmol/L (135-145)
[2022-01-28 07:38] VITALS: BP 162/86; PULSE 72; RESP 17; TEMP 37.1; O2SAT 96
[2022-01-28] MEDS: Metoprolol Succinate ER 50 MG TAB.ER.24H PO (08:37)
[2022-01-28] MEDS: Aspirin 81 MG TAB.CHEW PO (08:37)
[2022-01-28] MEDS: 0.9 % Sodium Chloride Flush 3 ML SYRINGE IVFLUSH ×2 (08:37→14:40)
[2022-01-28] MEDS: Losartan Potassium 25 MG TABLET PO (08:37)
[2022-01-28] MEDS: Isosorbide Mononitrate 30 MG TAB.ER.24H PO (08:37)
[2022-01-28 09:13] LABS: Troponin-I High Sensitivity 5.6 ng/L (<3.5-35.0)
[2022-01-28] MEDS: Azithromycin 500 MG TABLET PO (10:18)
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
[2022-01-28 12:00] VITALS: BP 154/77; PULSE 73; RESP 18; TEMP 37.2; O2SAT 98
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
[2022-01-28 13:36] LABS: Hematocrit 35.3 % (42.0-52.0); Hemoglobin 11.5 g/dl (14.0-18.0); Mean Corpuscular HGB Conc 32.6 g/dl (31.0-36.0); Mean Corpuscular Hemoglobin 31.7 pg (27.0-33.0); Mean Corpuscular Volume 97.2 fL (80.0-98.0); Mean Platelet Volume 8.9 fL (9.4-12.4); Platelet Count 349 X10*3/uL (160-400); Red Blood Count 3.63 X10*6/uL (4.60-5.80); White Blood Count 5.6 X10*3/uL (4.8-10.8)
[2022-01-28 13:43] LABS: INTERNATIONAL NORM RATIO 1.1 (0.9-1.1); Prothrombin Time 12.5 SEC (10.0-13.1)
[2022-01-28 13:46] LABS: PTT Heparin Drip 31.1 SEC (53-77.9)
[2022-01-28 13:50] VITALS: BMI 25.7
--- NOTE | 2022-01-28 13:58 | MHC.CM.PN ---
Addendum entered by Marge Iglesias RN 01/28/22 14:10: JERMAINE PORTER [phone] UPDATED. Original Note: [place] [facility] [place], MARY [facility] WILL TRANSPORT
[2022-01-28] MEDS: Heparin Sodium,Porcine 5,000 UNIT/ML VIAL 4000 UNIT IVPUSH (14:39)
[2022-01-28] MEDS: Heparin Sodium,Porcine/1/2NS 25,000 UNIT/250 ML IV.SOLN 10 UNIT IVCONT (14:43)
[2022-01-28 15:53] VITALS: BP 159/77; PULSE 71; RESP 18; TEMP 36.7; O2SAT 98
== END 2022-01-28 17:32 | disposition short-term general hospital (02) | DRG 917 ==
LOC: HO.ED 06:19 → HO.EDOVER 07:59 → HO.ICU 08:09 → HO.S3 01-21 11:19
PROVIDERS: Anesthesiology; Hospitalist; Internal Medicine; Student in an Organized Health Care Education/Training Program; Admitting Provider Internal Medicine Cardiovascular Disease; Emergency Provider Student in an Organized Health Care Education/Training Program; PCP Internal Medicine; Visit Provider Family Medicine
PROC: 0BJ08ZZ Inspection of Tracheobronchial Tree, Via Natural or Artificial Opening Endoscopic (ICD-10-PCS; CPT 31622; principal; 2022-01-19 09:30)
DX: T59.811A Toxic effect of smoke, accidental (unintentional), initial encounter (principal); J18.9 Pneumonia, unspecified organism; J96.01 Acute respiratory failure with hypoxia; I42.8 Other cardiomyopathies; I50.22 Chronic systolic (congestive) heart failure; I25.110 Atherosclerotic heart disease of native coronary artery with unstable angina pectoris; R04.2 Hemoptysis; I11.0 Hypertensive heart disease with heart failure; J70.5 Respiratory conditions due to smoke inhalation; Z95.5 Presence of coronary angioplasty implant and graft; Z91.041 Radiographic dye allergy status; E78.5 Hyperlipidemia, unspecified; I44.7 Left bundle-branch block, unspecified; T58.8X1A Toxic effect of carbon monoxide from other source, accidental (unintentional), initial encounter; Y92.009 Unspecified place in unspecified non-institutional (private) residence as the place of occurrence of the external cause; Z20.822 Contact with and (suspected) exposure to COVID-19; Z88.8 Allergy status to other drugs, medicaments and biological substances; Z79.82 Long term (current) use of aspirin; Z79.899 Other long term (current) drug therapy
CPT/HCPCS: 36415; 71045; 71046; 71250; 76705; 80048; 80053; 80076; 81001; 82375; 82803; 83735; 83880; 84100; 84484; 85025; 85027; 85610; 85730; 87070; 87205; 87635; 88112; 88305; 93005; 94002; 94003; 94640; 94799; 96374; 96375; 99285; C1758; J0171; J0295; J0696; J1170; J1650; J1885; J2250; J2270; J2765; J2920; J3010; J3370

== ENCOUNTER 2022-02-12 15:29 | Outpatient (REF) | payer MEDICARE, MEDICAID, SELFPAY ==
--- NOTE | ~2022-02-12 | XR_ITS ---
EXAMINATION: XR CHEST CLINICAL INFORMATION: Recent pneumonia. Follow-up. COMPARISON: Chest radiographs 01/26/2022, 01/24/2022, 01/23/2022; chest CT 01/19/2022. Chest radiograph 09/21/2018 TECHNIQUE: 2 views of the chest were obtained. FINDINGS: Coarsening of the bronchiolar and interstitial markings lower zones almost completely resolved. No hyperinflation, superimposed airspace consolidation or groundglass opacity. No effusion. The costophrenic sulci are clear. Heart size normal. Vascularity normal. Hilar and mediastinal contours are unremarkable. Again, there is mild dextrocurvature thoracic spine. No acute bony abnormality. There are surgical clips again seen upper abdomen. XR/XR chest 2V IMPRESSION: -Coarsening bronchiolar and interstitial markings lower zones almost completely resolved. -No airspace consolidation or groundglass opacity or effusion.
[2022-02-12 16:14] LABS: MANUAL DIFF FLAG NO
[2022-02-12 16:31] LABS: Basophils Absolute Auto 0.1 X10*3/uL (0.0-0.2); Basophils Percent Auto 0.8 % (0-2); Eosinophils Absolute Auto 0.4 X10*3/uL (0.0-0.4); Eosinophils Percent Auto 6.4 % (0-4); Hematocrit 34.6 % (42.0-52.0); Hemoglobin 11.3 g/dl (14.0-18.0); Imm Gran Abs Auto 0.03 X10*3/uL (0.00-0.03); Imm Gran Pct Auto 0.5 % (0.0-0.4); Lymphocytes Absolute Auto 1.8 X10*3/uL (1.2-4.9); Lymphocytes Percent Auto 29.5 % (20-40); Mean Corpuscular HGB Conc 32.7 g/dl (31.0-36.0); Mean Corpuscular Hemoglobin 31.9 pg (27.0-33.0); Mean Corpuscular Volume 97.7 fL (80.0-98.0); Mean Platelet Volume 9.8 fL (9.4-12.4); Monocytes Absolute Auto 0.7 X10*3/uL (0.1-1.2); Monocytes Percent Auto 11.5 % (2-11); Neutrophils Absolute Auto 3.2 x10*3/uL (2.0-8.3); Neutrophils Percent Auto 51.3 % (45-73); Platelet Count 221 X10*3/uL (160-400); Red Blood Count 3.54 X10*6/uL (4.60-5.80); Red Cell Distribution Width 14.1 % (11.0-16.0); White Blood Count 6.2 X10*3/uL (4.8-10.8)
[2022-02-12 16:54] LABS: Alanine Aminotransferase 29 U/L (0-40); Albumin Level 4.2 g/dL (3.5-5.0); Alkaline Phosphatase 119 U/L (39-117); Anion Gap 11 (12-20); Aspartate Amino Transferase 37 U/L (5-37); Bilirubin Total 0.8 mg/dL (0.0-1.0); Blood Urea Nitrogen 19 mg/dL (9-16); C Reactive Protein 0.11 mg/dL (< or = 0.50); Calcium 10.1 mg/dL (8.4-10.2); Carbon Dioxide 30 mmol/L (22-29); Chloride 105 mmol/L (96-108); Estimated Glomerular Filt Rate > 60; Glucose Random 101 mg/dL (60-115); Iron 147 mcg/dL (45-160); Percent Iron Saturation 54 % (15-50); Potassium 4.6 mmol/L (3.3-5.1); Sodium 141 mmol/L (135-145); Total Iron Binding Capacity 274 mcg/dL (228-428); Total Protein 6.4 g/dL (6.5-8.0); Unsaturated Iron Binding 127 ug/dL
== END 2022-02-12 15:30 | disposition home or self-care (01) ==
LOC: HO.LAB 15:29
PROVIDERS: PCP Internal Medicine; Visit Provider Internal Medicine
DX: I25.10 Atherosclerotic heart disease of native coronary artery without angina pectoris (principal); I10 Essential (primary) hypertension; J18.9 Pneumonia, unspecified organism; R04.2 Hemoptysis
CPT/HCPCS: 36415; 71046; 80053; 82550; 83540; 85025; 86140

== ENCOUNTER 2022-02-13 18:47 | Emergency (ER) | payer MEDICARE, MEDICAID, SELFPAY ==
--- NOTE | ~2022-02-13 | XR_ITS ---
EXAMINATION: CHEST 2 VIEWS CLINICAL INFORMATION: cough . COMPARISON: 02/12/2022. TECHNIQUE: PA and lateral views of the chest obtained. FINDINGS: The lungs are well expanded. No focal infiltrate, effusion, edema, or pneumothorax. Cardiac and mediastinal silhouettes are within normal limits for technique. No acute bony abnormality seen. Surgical clips seen overlying the left upper quadrant XR/XR chest 2V IMPRESSION: No evidence of acute disease.
[2022-02-13 18:58] VITALS: BP 121/72; BP 143/79; PULSE 72; PULSE 78; RESP 18; TEMP 36.7; O2SAT 100; BMI 25.2
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
[2022-02-13 20:01] LABS: MANUAL DIFF FLAG NO
[2022-02-13 20:02] LABS: Basophils Absolute Auto 0.1 X10*3/uL (0.0-0.2); Eosinophils Absolute Auto 0.4 X10*3/uL (0.0-0.4); Hematocrit 31.7 % (42.0-52.0); Hemoglobin 10.6 g/dl (14.0-18.0); Imm Gran Abs Auto 0.01 X10*3/uL (0.00-0.03); Imm Gran Pct Auto 0.2 % (0.0-0.4); Lymphocytes Absolute Auto 1.4 X10*3/uL (1.2-4.9); Mean Corpuscular HGB Conc 33.4 g/dl (31.0-36.0); Mean Corpuscular Hemoglobin 32.4 pg (27.0-33.0); Mean Corpuscular Volume 96.9 fL (80.0-98.0); Mean Platelet Volume 9.6 fL (9.4-12.4); Monocytes Absolute Auto 0.6 X10*3/uL (0.1-1.2); Monocytes Percent Auto 12.4 % (2-11); Neutrophils Absolute Auto 2.6 x10*3/uL (2.0-8.3); Neutrophils Percent Auto 51.4 % (45-73); Platelet Count 199 X10*3/uL (160-400); Red Blood Count 3.27 X10*6/uL (4.60-5.80); Red Cell Distribution Width 14.1 % (11.0-16.0)
[2022-02-13 20:07] LABS: INTERNATIONAL NORM RATIO 1.1 (0.9-1.1); Prothrombin Time 12.5 SEC (10.0-13.1)
[2022-02-13 20:10] LABS: Partial Thromboplastin Time 30.2 SEC (26.0-36.4)
[2022-02-13 20:14] VITALS: BP 121/57; PULSE 69; TEMP 36.8; O2SAT 98
[2022-02-13 20:25] LABS: Alanine Aminotransferase 24 U/L (0-40); Albumin Level 3.8 g/dL (3.5-5.0); Alkaline Phosphatase 109 U/L (39-117); Anion Gap 11 (12-20); Aspartate Amino Transferase 36 U/L (5-37); Bilirubin Total 0.5 mg/dL (0.0-1.0); Blood Urea Nitrogen 20 mg/dL (9-16); Calcium 9.7 mg/dL (8.4-10.2); Carbon Dioxide 28 mmol/L (22-29); Chloride 107 mmol/L (96-108); Creatinine Clr Calc Pharmacy 82.2; Estimated Glomerular Filt Rate > 60; Glucose Random 107 mg/dL (60-115); Magnesium 2.1 mg/dL (1.6-2.6); Potassium 5.2 mmol/L (3.3-5.1); Sodium 141 mmol/L (135-145); Total Protein 6.1 g/dL (6.5-8.0)
--- NOTE | 2022-02-13 20:40 | PC.NURSE ---
PT A&Ox3, reports increase 10/10 bilateral lung pain with coughing up blood for 3 days. O2 sat 100% on RA, RR 18-20, LS clear.
== END 2022-02-13 21:14 | disposition home or self-care (01) ==
PROVIDERS: Physician Assistant Medical; Emergency Provider Student in an Organized Health Care Education/Training Program
DX: R05.9 Cough, unspecified (principal); T59.811D Toxic effect of smoke, accidental (unintentional), subsequent encounter; J70.5 Respiratory conditions due to smoke inhalation
CPT/HCPCS: 36415; 71046; 80053; 83735; 85025; 85610; 85730; 99283; 99284

== ENCOUNTER 2022-02-16 00:03 | Observation (INO) | payer MEDICARE, MEDICAID, SELFPAY ==
[2022-02-16] VITALS (17 sets, daily range): BP systolic 104–186; BP diastolic 52–96; PULSE 56–92; RESP 12–23; TEMP 36.3–37.1; O2SAT 94–100; BMI 25.2
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
--- NOTE | 2022-02-16 00:39 | ECG_ITS ---
Test Reason : CHEST PAIN Blood Pressure : / mmHG Vent. Rate : 082 BPM Atrial Rate : 082 BPM P-R Int : 158 ms QRS Dur : 124 ms QT Int : 394 ms P-R-T Axes : 054 -01 050 degrees QTc Int : 460 ms Normal sinus rhythm Left bundle branch block Abnormal ECG When compared with ECG of 27-JAN-2022 13:23, Premature supraventricular complexes are no longer Present Referred By: Alba Singh Electronically Signed By:Pio Bazan
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
--- NOTE | 2022-02-16 02:15 | PC.NURSE ---
Pt reports increasing chest and throat pain since arrival, 10+/10. VSS. MD aware.
[2022-02-16] MEDS: Albuterol Sulfate 2.5 MG, Albuterol/Iprat 2.5/0.5MG 3 ML 3 ML INHALE (02:23)
[2022-02-16 03:04] LABS: Influenza A PCR NEGATIVE (Negative); Influenza B PCR NEGATIVE (Negative); Resp Syncy Virus RNA Qual PCR NEGATIVE (Negative); SARS COV2 PCR INHOUSE NEGATIVE (Negative)
--- NOTE | 2022-02-16 03:04 | PC.NURSE ---
Unable to obtain lab work ordered for pt as pt is a difficult stick. IV line established by EMS on L AC infiltrated. Multiple attempts by airframe technician and 3 RN's unsuccessful at collecting lab samples and establishing an IV line. aware.
[2022-02-16 03:11] LABS: Basophils Percent Auto 0.4 % (0-2); Eosinophils Absolute Auto 0.2 X10*3/uL (0.0-0.4); Eosinophils Percent Auto 1.8 % (0-4); Hematocrit 34.5 % (42.0-52.0); Hemoglobin 11.6 g/dl (14.0-18.0); Imm Gran Abs Auto 0.03 X10*3/uL (0.00-0.03); Imm Gran Pct Auto 0.3 % (0.0-0.4); Lymphocytes Absolute Auto 1.1 X10*3/uL (1.2-4.9); Lymphocytes Percent Auto 11.1 % (20-40); MANUAL DIFF FLAG NO; Mean Corpuscular HGB Conc 33.6 g/dl (31.0-36.0); Mean Corpuscular Hemoglobin 32.4 pg (27.0-33.0); Mean Corpuscular Volume 96.4 fL (80.0-98.0); Mean Platelet Volume 10.3 fL (9.4-12.4); Monocytes Absolute Auto 0.8 X10*3/uL (0.1-1.2); Monocytes Percent Auto 7.7 % (2-11); Neutrophils Absolute Auto 7.7 x10*3/uL (2.0-8.3); Neutrophils Percent Auto 78.7 % (45-73); Platelet Count 217 X10*3/uL (160-400); Red Blood Count 3.58 X10*6/uL (4.60-5.80); Red Cell Distribution Width 14.4 % (11.0-16.0); White Blood Count 9.8 X10*3/uL (4.8-10.8)
[2022-02-16 03:20] LABS: Venous Blood Gas Refer to POC result
[2022-02-16 03:21] LABS: VBG Base Excess 7.4 mmol/L; VBG HCO3 32 mmol/L (22-26); VBG pCO2 49 mmHg; VBG pH 7.42 (7.32-7.43); VBG pO2 33 mmHg
--- NOTE | 2022-02-16 03:34 | PC.NURSE ---
Labs obtained. New IV line established with 20G on the R AC. Pt resting in no distress. Continues to report chest tightness . aware.
[2022-02-16 03:35] LABS: Alanine Aminotransferase 26 U/L (0-40); Albumin Level 4.1 g/dL (3.5-5.0); Alkaline Phosphatase 114 U/L (39-117); Anion Gap 14 (12-20); Aspartate Amino Transferase 35 U/L (5-37); Bilirubin Total 0.6 mg/dL (0.0-1.0); Blood Urea Nitrogen 21 mg/dL (9-16); Calcium 9.7 mg/dL (8.4-10.2); Carbon Dioxide 24 mmol/L (22-29); Chloride 108 mmol/L (96-108); Creatinine Clr Calc Pharmacy 84.1; Estimated Glomerular Filt Rate > 60; Glucose Random 93 mg/dL (60-115); Potassium 3.9 mmol/L (3.3-5.1); Sodium 142 mmol/L (135-145); Total Protein 6.7 g/dL (6.5-8.0)
--- NOTE | 2022-02-16 04:30 | PC.NURSE ---
Pt pending admission. Hospitalist at bedside.
[2022-02-16 04:31] LABS: Troponin-I High Sensitivity 33.7 ng/L (<3.5-35.0)
--- NOTE | 2022-02-16 05:10 | PC.NURSE ---
Med req completed
--- NOTE | 2022-02-16 05:12 | PC.NURSE ---
Pt noted to ambulate to the bathroom to move bowels with no assistance or difficulty.
[2022-02-16] MEDS: Morphine Sulfate 4 MG/ML CARTRIDGE IVPUSH ×4 (05:16→18:40)
--- NOTE | 2022-02-16 05:21 | PC.NURSE ---
Pt medicated with Morphine 4mg for pain chest and throat pain, 12/08. Pt toleraled well. Will continue to monitor.
[2022-02-16 05:54] LABS: MANUAL DIFF FLAG NO
[2022-02-16 06:00] LABS: Basophils Percent Auto 0.3 % (0-2); Eosinophils Absolute Auto 0.2 X10*3/uL (0.0-0.4); Eosinophils Percent Auto 2.4 % (0-4); Hematocrit 34.9 % (42.0-52.0); Hemoglobin 11.4 g/dl (14.0-18.0); Imm Gran Abs Auto 0.02 X10*3/uL (0.00-0.03); Imm Gran Pct Auto 0.2 % (0.0-0.4); Lymphocytes Absolute Auto 0.8 X10*3/uL (1.2-4.9); Lymphocytes Percent Auto 8.7 % (20-40); Mean Corpuscular HGB Conc 32.7 g/dl (31.0-36.0); Mean Corpuscular Hemoglobin 31.6 pg (27.0-33.0); Mean Corpuscular Volume 96.7 fL (80.0-98.0); Mean Platelet Volume 9.9 fL (9.4-12.4); Monocytes Absolute Auto 0.6 X10*3/uL (0.1-1.2); Monocytes Percent Auto 6.8 % (2-11); Neutrophils Absolute Auto 7.5 x10*3/uL (2.0-8.3); Neutrophils Percent Auto 81.6 % (45-73); Platelet Count 196 X10*3/uL (160-400); Red Blood Count 3.61 X10*6/uL (4.60-5.80); Red Cell Distribution Width 14.3 % (11.0-16.0); White Blood Count 9.2 X10*3/uL (4.8-10.8)
[2022-02-16 06:10] LABS: Anion Gap 14 (12-20); Blood Urea Nitrogen 21 mg/dL (9-16); Calcium 9.3 mg/dL (8.4-10.2); Carbon Dioxide 21 mmol/L (22-29); Chloride 109 mmol/L (96-108); Estimated Glomerular Filt Rate > 60; Glucose Random 96 mg/dL (60-115); Potassium 4.4 mmol/L (3.3-5.1); Sodium 140 mmol/L (135-145)
[2022-02-16 06:18] LABS: Troponin-I High Sensitivity 34.8 ng/L (<3.5-35.0)
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
--- NOTE | 2022-02-16 07:41 | PM.EVENT ---
Event Note Date of Service: 02/16/22 Event Note: Pt seen, admitted this morning with chest pain and hemoptysis.. normal trop, no evidence of ACS.. A/P per H and P from this morning. Time Spent With Patient Time: Total time managing care of this patient today ____ minutes.
--- NOTE | 2022-02-16 09:18 | PHA.MEDREC ---
Pharmacy Consult ? Medication Reconciliation Pharmacy has reviewed the medication reconciliation. Patient had a handwritten list at bedside. Of Note: patient is on day 3 of 7 for his prednisone
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
[2022-02-16] MEDS: Isosorbide Mononitrate 30 MG TAB.ER.24H PO (09:48)
[2022-02-16] MEDS: Losartan Potassium 25 MG TABLET PO (09:49)
[2022-02-16] MEDS: Metoprolol Succinate ER 50 MG TAB.ER.24H PO ×2 (09:49→11:26)
[2022-02-16] MEDS: Metoprolol Succinate ER 25 MG TAB.ER.24H PO (09:49)
[2022-02-16] MEDS: predniSONE 20 MG TABLET PO (10:06)
[2022-02-16] MEDS: Nitroglycerin 0.4 MG TAB.SUBL SUBLINGUAL (10:07)
[2022-02-16] MEDS: Sucralfate Oral Suspension 1 GM/10 ML ORAL.SUSP PO ×2 (10:10→21:39)
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
[2022-02-16] MEDS: Acetaminophen 325 MG TABLET 650 MG PO (15:34)
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
[2022-02-16] MEDS: allopurinoL 100 MG TABLET PO (18:38)
[2022-02-16] MEDS: 0.9 % Sodium Chloride Flush 3 ML SYRINGE IVFLUSH ×2 (18:38→21:39)
[2022-02-16] MEDS: Atorvastatin Calcium 80 MG TABLET PO (21:39)
[2022-02-17] VITALS (7 sets, daily range): BP systolic 108–171; BP diastolic 55–75; PULSE 61–95; RESP 14–20; TEMP 36.2–36.9; O2SAT 93–99
[2022-02-17] MEDS: Nitroglycerin 0.4 MG TAB.SUBL SUBLINGUAL ×2 (04:12→04:22)
[2022-02-17] MEDS: Morphine Sulfate 4 MG/ML CARTRIDGE IVPUSH (04:14)
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
[2022-02-17] MEDS: Pantoprazole Sodium 40 MG/10 ML VIAL IVPUSH (04:33)
[2022-02-17] MEDS: HYDROmorphone HCl 0.5 MG/0.5 ML SYRINGE IVPUSH ×2 (04:36→05:22)
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
[2022-02-17] MEDS: Isosorbide Mononitrate 30 MG TAB.ER.24H PO (09:30)
[2022-02-17] MEDS: Sucralfate Oral Suspension 1 GM/10 ML ORAL.SUSP PO ×2 (09:30→20:14)
[2022-02-17] MEDS: predniSONE 20 MG TABLET PO (09:30)
[2022-02-17] MEDS: Metoprolol Succinate ER 25 MG TAB.ER.24H PO ×2 (09:30→20:15)
[2022-02-17] MEDS: Losartan Potassium 25 MG TABLET PO (09:31)
[2022-02-17] MEDS: HYDROmorphone HCl 0.5 MG/0.5 ML SYRINGE 1 MG IVPUSH ×2 (09:35→18:35)
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
--- NOTE | 2022-02-17 12:00 | MHC.CLN ---
RE: CONSULT FOR WT LOSS CURRENT ADMISSION WT 79.8KG PREVIOUS WT HX: 75.75 (08/07/21) PT WITH 5% NON-SIGNIFICANT WT GAIN X 6 MONTHS BMI-WNL; NO NEW ORDERS AT THIS TIME MONITOR PO INTAKE CLOSELY
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
[2022-02-17] MEDS: allopurinoL 100 MG TABLET PO (16:15)
[2022-02-17] MEDS: Atorvastatin Calcium 80 MG TABLET PO (20:15)
[2022-02-18 03:35] VITALS: BP 135/56; PULSE 70; RESP 18; TEMP 37.1; O2SAT 99
[2022-02-18 07:22] VITALS: BP 153/74; PULSE 67; RESP 20; TEMP 36.4; O2SAT 100
[2022-02-18] MEDS: Metoprolol Succinate ER 25 MG TAB.ER.24H PO (09:19)
[2022-02-18] MEDS: Losartan Potassium 25 MG TABLET PO (09:19)
[2022-02-18] MEDS: Sucralfate Oral Suspension 1 GM/10 ML ORAL.SUSP PO (09:19)
[2022-02-18] MEDS: Metoprolol Succinate ER 50 MG TAB.ER.24H PO (09:19)
[2022-02-18] MEDS: predniSONE 20 MG TABLET PO (09:19)
[2022-02-18] MEDS: Isosorbide Mononitrate 30 MG TAB.ER.24H PO (09:19)
[2022-02-18] MEDS: HYDROmorphone HCl 0.5 MG/0.5 ML SYRINGE 1 MG IVPUSH (09:27)
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
[2022-02-18 11:03] LABS: CDiff Gene PCR NEGATIVE (Negative)
[2022-02-18 11:10] VITALS: BP 127/68; PULSE 68; RESP 18; TEMP 36.6; O2SAT 98
--- NOTE | 2022-02-18 13:42 | MHC.CM.PN ---
met with pt who has worked things out with his friend ,he is able to return there when [facility] booked for 3
--- NOTE | 2022-02-18 13:46 | MHC.CM.PN ---
jessie hansonn home no servceis
[2022-02-18 14:59] LABS: Hematocrit 39.6 % (42.0-52.0); Hemoglobin 12.9 g/dl (14.0-18.0); Mean Corpuscular HGB Conc 32.6 g/dl (31.0-36.0); Mean Corpuscular Hemoglobin 32.1 pg (27.0-33.0); Mean Corpuscular Volume 98.5 fL (80.0-98.0); Mean Platelet Volume 10.5 fL (9.4-12.4); Platelet Count 222 X10*3/uL (160-400); Red Blood Count 4.02 X10*6/uL (4.60-5.80); Red Cell Distribution Width 14.4 % (11.0-16.0); White Blood Count 6.5 X10*3/uL (4.8-10.8)
--- NOTE | 2022-02-18 15:17 | PC.NURSE ---
iv removed, tele removed, all belongings with pt. pt educated on d/ [employer]. Gamal taking pt home
== END 2022-02-18 15:16 | disposition home or self-care (01) ==
LOC: HO.ED 04:18 → HO.EDOVER 05:10 → HO.IMC 07:30
PROVIDERS: Admitting Provider Internal Medicine; Emergency Provider Student in an Organized Health Care Education/Training Program; PCP Internal Medicine; Visit Provider Internal Medicine
DX: R07.89 Other chest pain (principal); R04.2 Hemoptysis; I20.8 Other forms of angina pectoris; I10 Essential (primary) hypertension; I44.7 Left bundle-branch block, unspecified; Z79.82 Long term (current) use of aspirin; Z79.02 Long term (current) use of antithrombotics/antiplatelets; Z79.899 Other long term (current) drug therapy; Z20.822 Contact with and (suspected) exposure to COVID-19
CPT/HCPCS: 0241U; 36415; 71250; 80048; 80053; 82803; 84484; 85025; 85027; 87493; 93005; 94640; 96374; 96375; 96376; 99219; 99285; J1170; J2270

== ENCOUNTER 2022-03-03 10:44 | Emergency (ER) | payer MEDICARE, MEDICAID, SELFPAY ==
--- NOTE | ~2022-03-03 | XR_ITS ---
EXAMINATION: XR CHEST CLINICAL INFORMATION: SOB and cough. Chest pain. COMPARISON: None TECHNIQUE: 2 views of the chest were obtained. FINDINGS: No significant abnormality is noted involving the heart, lungs, mediastinum, bony thorax or soft tissues. XR/XR chest 2V IMPRESSION: Unremarkable chest examination.
--- NOTE | ~2022-03-03 | NM_ITS ---
PULMONARY PERFUSION ONLY STUDY: CLINICAL INDICATION: Chest pain. PROCEDURE: Following the intravenous administration of 3.9 millicuries technetium 99m MAA, images of the chest were obtained in multiple projections using a gamma scintiphotographic camera. The radiotracer was injected through the left hand superficial vein without complications. COMPARISON: Chest radiograph done earlier today. PERFUSION IMAGES: No large segmental perfusion defects are noted on either side. Near symmetric homogenous radiotracer distribution is present bilaterally. Both lung prieto appear clear on the radiographic images. NM/NM pul perfusion IMPRESSION: Based on perfusion only modified PIOPED 2 criteria, pulmonary thromboembolism is considered absent.
[2022-03-03 10:53] VITALS: BP 135/73; BP 138/74; PULSE 77; PULSE 82; RESP 16; TEMP 36.7; O2SAT 100; O2SAT 98; BMI 25.2
--- NOTE | 2022-03-03 11:05 | ECG_ITS ---
Test Reason : Chest Pain Blood Pressure : / mmHG Vent. Rate : 067 BPM Atrial Rate : 067 BPM P-R Int : 152 ms QRS Dur : 124 ms QT Int : 426 ms P-R-T Axes : 049 011 -79 degrees QTc Int : 450 ms Normal sinus rhythm Left bundle branch block Abnormal ECG When compared with ECG of 16-FEB-2022 10:38, No significant change was found Referred By: Antonette Sheehan Electronically Signed By:KENNETH EVANS
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
[2022-03-03 11:52] LABS: MANUAL DIFF FLAG NO
[2022-03-03 11:55] LABS: Basophils Percent Auto 0.5 % (0-2); Eosinophils Absolute Auto 0.1 X10*3/uL (0.0-0.4); Eosinophils Percent Auto 3.1 % (0-4); Hematocrit 35.8 % (42.0-52.0); Hemoglobin 11.8 g/dl (14.0-18.0); Imm Gran Abs Auto 0.01 X10*3/uL (0.00-0.03); Imm Gran Pct Auto 0.2 % (0.0-0.4); Lymphocytes Absolute Auto 1.1 X10*3/uL (1.2-4.9); Lymphocytes Percent Auto 25.5 % (20-40); Mean Corpuscular Hemoglobin 32.2 pg (27.0-33.0); Mean Corpuscular Volume 97.8 fL (80.0-98.0); Mean Platelet Volume 9.4 fL (9.4-12.4); Monocytes Absolute Auto 0.4 X10*3/uL (0.1-1.2); Monocytes Percent Auto 10.3 % (2-11); Neutrophils Absolute Auto 2.5 x10*3/uL (2.0-8.3); Neutrophils Percent Auto 60.4 % (45-73); Platelet Count 240 X10*3/uL (160-400); Red Blood Count 3.66 X10*6/uL (4.60-5.80); Red Cell Distribution Width 13.9 % (11.0-16.0); White Blood Count 4.2 X10*3/uL (4.8-10.8)
[2022-03-03 12:06] LABS: COVID-19 Test Positive (Negative); IDNOW Serial# 9DB6401D
[2022-03-03 12:08] LABS: INTERNATIONAL NORM RATIO 1.1 (0.9-1.1); Prothrombin Time 12.6 SEC (10.0-13.1)
[2022-03-03 12:16] LABS: Alanine Aminotransferase 27 U/L (0-40); Albumin Level 3.8 g/dL (3.5-5.0); Alkaline Phosphatase 118 U/L (39-117); Anion Gap 10 (12-20); Aspartate Amino Transferase 39 U/L (5-37); Bilirubin Direct 0.2 mg/dL (0.0-0.5); Bilirubin Total 0.6 mg/dL (0.0-1.0); Blood Urea Nitrogen 26 mg/dL (9-16); Calcium 9.4 mg/dL (8.4-10.2); Carbon Dioxide 27 mmol/L (22-29); Chloride 109 mmol/L (96-108); Creatinine Clr Calc Pharmacy 89.1; Estimated Glomerular Filt Rate > 60; Glucose Random 97 mg/dL (60-115); Magnesium 2.1 mg/dL (1.6-2.6); Potassium 4.8 mmol/L (3.3-5.1); Sodium 141 mmol/L (135-145); Total Protein 6.1 g/dL (6.5-8.0)
[2022-03-03 12:18] LABS: Troponin-I High Sensitivity 6.4 ng/L (<3.5-35.0)
[2022-03-03 12:44] LABS: D Dimer High Sensitivity 481 NG/ML
--- NOTE | 2022-03-03 13:02 | PC.NURSE ---
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 lungs - cta. heart sounds regular. abd soft and non-tender. no edema noted.
[2022-03-03 14:34] VITALS: BP 137/70; PULSE 62; RESP 17; O2SAT 98
== END 2022-03-03 15:58 | disposition home or self-care (01) ==
PROVIDERS: Nurse Practitioner Family; Emergency Provider Emergency Medicine; PCP Internal Medicine
DX: U07.1 COVID-19 (principal); R07.9 Chest pain, unspecified; I10 Essential (primary) hypertension; I44.7 Left bundle-branch block, unspecified; Z79.02 Long term (current) use of antithrombotics/antiplatelets; Z79.899 Other long term (current) drug therapy
CPT/HCPCS: 36415; 71046; 78580; 80048; 80076; 83735; 84484; 85025; 85379; 85610; 87635; 93005; 99284; A9540

== ENCOUNTER 2022-03-08 11:07 | Emergency (ER) | payer MEDICARE, MEDICAID, SELFPAY ==
--- NOTE | ~2022-03-08 | XR_ITS ---
EXAMINATION: XR CHEST CLINICAL INFORMATION: Chest pain COMPARISON: Chest x-ray March 03, 2022 TECHNIQUE: 2 views of the chest were obtained. FINDINGS: Cardiac silhouette is normal in size. The lungs are well aerated. There is no lobar consolidation. No pleural effusion or pneumothorax. Surgical clips project over the upper abdomen. Mild to moderate degenerative changes of the spine. XR/XR chest 2V IMPRESSION: No acute pulmonary pathology.
[2022-03-08 11:16] VITALS: BP 134/75; PULSE 74; RESP 20; TEMP 36.8; O2SAT 100; BMI 25.2
[2022-03-08 11:48] VITALS: BP 124/70; PULSE 69; RESP 16; O2SAT 100
--- NOTE | 2022-03-08 11:50 | PC.NURSE ---
Pt complaining of difficulty breathing, states it feels as if his throat is closing. Pt 100% on room air, speaking in full clear sentences.
--- NOTE | 2022-03-08 12:03 | ECG_ITS ---
Test Reason : CHEST PAIN Blood Pressure : / mmHG Vent. Rate : 065 BPM Atrial Rate : 065 BPM P-R Int : 160 ms QRS Dur : 134 ms QT Int : 444 ms P-R-T Axes : 050 001 163 degrees QTc Int : 461 ms Normal sinus rhythm Left bundle branch block Abnormal ECG When compared with ECG of 03-MAR-2022 11:10, No significant change was found Referred By: Johnna Fletcher Electronically Signed By:Pio Bazan
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
[2022-03-08 13:15] LABS: Basophils Percent Auto 0.4 % (0-2); Eosinophils Absolute Auto 0.1 X10*3/uL (0.0-0.4); Eosinophils Percent Auto 1.6 % (0-4); Hematocrit 36.3 % (42.0-52.0); Hemoglobin 11.9 g/dl (14.0-18.0); Imm Gran Abs Auto 0.01 X10*3/uL (0.00-0.03); Imm Gran Pct Auto 0.2 % (0.0-0.4); Lymphocytes Absolute Auto 1.3 X10*3/uL (1.2-4.9); Lymphocytes Percent Auto 29.4 % (20-40); MANUAL DIFF FLAG NO; Mean Corpuscular HGB Conc 32.8 g/dl (31.0-36.0); Mean Corpuscular Volume 97.6 fL (80.0-98.0); Mean Platelet Volume 8.9 fL (9.4-12.4); Monocytes Absolute Auto 0.4 X10*3/uL (0.1-1.2); Monocytes Percent Auto 8.1 % (2-11); Neutrophils Absolute Auto 2.7 x10*3/uL (2.0-8.3); Neutrophils Percent Auto 60.3 % (45-73); Platelet Count 234 X10*3/uL (160-400); Red Blood Count 3.72 X10*6/uL (4.60-5.80); Red Cell Distribution Width 13.6 % (11.0-16.0); White Blood Count 4.5 X10*3/uL (4.8-10.8)
[2022-03-08 13:20] LABS: INTERNATIONAL NORM RATIO 1.1 (0.9-1.1); Prothrombin Time 12.4 SEC (10.0-13.1)
[2022-03-08 13:34] LABS: Troponin-I High Sensitivity 51.5 ng/L (<3.5-35.0)
[2022-03-08 13:35] LABS: Alanine Aminotransferase 43 U/L (0-40); Albumin Level 4.2 g/dL (3.5-5.0); Alkaline Phosphatase 104 U/L (39-117); Anion Gap 14 (12-20); Aspartate Amino Transferase 54 U/L (5-37); Bilirubin Total 0.9 mg/dL (0.0-1.0); Blood Urea Nitrogen 21 mg/dL (9-16); Calcium 9.4 mg/dL (8.4-10.2); Carbon Dioxide 23 mmol/L (22-29); Chloride 108 mmol/L (96-108); Creatinine Clr Calc Pharmacy 82.2; Estimated Glomerular Filt Rate > 60; Glucose Random 96 mg/dL (60-115); Magnesium 2.1 mg/dL (1.6-2.6); Potassium 4.5 mmol/L (3.3-5.1); Sodium 140 mmol/L (135-145); Total Protein 6.7 g/dL (6.5-8.0)
[2022-03-08 13:43] VITALS: BP 108/59; PULSE 60; RESP 12; O2SAT 98
[2022-03-08] MEDS: HYDROmorphone HCl 1 MG/ML SYRINGE IVPUSH (14:07)
--- NOTE | 2022-03-08 14:19 | PC.NURSE ---
Medicated per the mar for pain. Repeat troponin ordered for 1615
[2022-03-08 16:40] VITALS: BP 134/69; PULSE 58; RESP 14; TEMP 36.6; O2SAT 99
[2022-03-08 16:40] LABS: Troponin-I High Sensitivity 45.6 ng/L (<3.5-35.0)
== END 2022-03-08 17:05 | disposition home or self-care (01) ==
PROVIDERS: Physician Assistant Medical; Emergency Provider Emergency Medicine Emergency Medical Services; PCP Internal Medicine
DX: M94.0 Chondrocostal junction syndrome [Tietze] (principal); R07.89 Other chest pain; Z79.899 Other long term (current) drug therapy
CPT/HCPCS: 36415; 71046; 80053; 83735; 84484; 85025; 85610; 93005; 96374; 99285; J1170

== ENCOUNTER 2022-03-17 14:15 | Observation (INO) | payer MEDICARE, MEDICAID, SELFPAY ==
--- NOTE | ~2022-03-17 | MR_ITS ---
EXAMINATION: MR CERVICAL SPINE WITHOUT CONTRAST MR THORACIC SPINE WITHOUT CONTRAST CLINICAL INFORMATION: Reason for Exam intermittent tetraplegia COMPARISON: None TECHNIQUE: MRI of the cervical and thoracic spine was obtained using routine sequences without contrast. FINDINGS: Cervical Spine: Trace anterolisthesis of C7 on T1. No suspicious marrow signal or focal osseous lesion. The vertebral body heights are maintained. The intervertebral discs are of normal height and signal. The cervical spinal cord is normal in caliber and signal Limited evaluation of the soft tissues of the neck without demonstrated abnormalities. The flow voids of the major cervical vessels are maintained. Normal appearance of the cervicomedullary junction and visualized posterior fossa SPINAL LEVELS: C2-C3: No significant spinal canal or neural foraminal narrowing. C3-C4: Small disc osteophyte complex and right greater than left uncovertebral hypertrophy. Severe right and moderate to severe left neural foraminal narrowing. No significant spinal canal stenosis. C4-C5: Small central disc protrusion. Mild facet and uncovertebral hypertrophy. Moderate left neural foraminal narrowing. No significant spinal canal stenosis. C5-C6: Small disc osteophyte complex and right greater than left uncovertebral hypertrophy. Ligamentum flavum infolding. Severe right and moderate left neural foraminal narrowing. Mild central spinal canal stenosis. C6-C7: Left eccentric disc osteophyte complex and left greater than right uncovertebral hypertrophy. Mild to moderate right and moderate to severe left neural foraminal narrowing. No significant spinal canal stenosis C7-T1: No significant spinal canal or neural foraminal narrowing Thoracic Spine: Trace retrolisthesis of T12 on L1. No suspicious marrow signal or focal osseous lesion. Mild endplate marrow edema at T12-L1. The vertebral body heights are maintained. Overall mild multilevel degenerative disc desiccation and height loss, worst at T12-L1. Small disc protrusions at T9-T10, T10-T11, and T12-L1 with indentation of the left ventral thecal sac at T9-T10 and right ventral thecal sac at T10-T11. There is an annular fissure at T10-T11. No significant central spinal canal stenosis. No signal abnormality of the thoracic spinal cord. Multilevel moderate to severe thoracic facet arthropathy. No significant abnormalities of the paraspinal musculature. Limited evaluation of the intrathoracic structures without significant abnormalities. The descending thoracic aorta is of normal contour and caliber. MR/MR cervical spine wo con IMPRESSION: 1. No high-grade spinal canal stenosis, cord compression, or cord signal abnormality in the cervical or thoracic spine. 2. Multilevel degenerative changes of the cervical and thoracic spine including multilevel moderate to severe cervical neural foraminal narrowing as detailed above.
--- NOTE | ~2022-03-17 | XR_ITS ---
EXAMINATION: XR CHEST CLINICAL INFORMATION: Chest pain. COMPARISON: 03/08/2022 chest radiographs. TECHNIQUE: Frontal view of the chest was obtained. FINDINGS: No significant abnormality is noted involving the heart, lungs, mediastinum, bony thorax or soft tissues. XR/XR chest 1V IMPRESSION: No acute cardiopulmonary process.
--- NOTE | ~2022-03-17 | NM_ITS ---
EXAMINATION: PULMONARY PERFUSION STUDY CLINICAL INFORMATION: Evaluate for pulmonary embolism. Patient is allergic to IV contrast. COMPARISON: V/Q study 03/03/2022. Chest radiograph performed earlier today at 3:42 PM. TECHNIQUE: The patient then received 2.5 mCi Tc-99m MAA intravenously and a 6-view perfusion study was performed. No ventilation images were obtained. FINDINGS: No segmental perfusion defects are present. There is fairly homogeneous distribution of activity bilaterally. NM/NM pul perfusion IMPRESSION: Normal radionuclide lung perfusion scan.
[2022-03-17 14:23] VITALS: BP 146/76; BP 168/73; PULSE 60; PULSE 73; RESP 18; TEMP 36.6; O2SAT 100; O2SAT 98; BMI 24.5
--- NOTE | 2022-03-17 14:29 | ECG_ITS ---
Test Reason : CHEST PAIN Blood Pressure : / mmHG Vent. Rate : 062 BPM Atrial Rate : 062 BPM P-R Int : 160 ms QRS Dur : 130 ms QT Int : 424 ms P-R-T Axes : 051 006 209 degrees QTc Int : 430 ms Normal sinus rhythm Left bundle branch block Abnormal ECG When compared with ECG of 08-MAR-2022 11:37, No significant change was found Referred By: Eli Caro Electronically Signed By:AGUILAR REYES MD
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
[2022-03-17 14:58] LABS: MANUAL DIFF FLAG NO
[2022-03-17 15:01] LABS: Basophils Percent Auto 0.8 % (0-2); Eosinophils Absolute Auto 0.1 X10*3/uL (0.0-0.4); Eosinophils Percent Auto 1.3 % (0-4); Hematocrit 37.9 % (42.0-52.0); Hemoglobin 12.5 g/dl (14.0-18.0); Imm Gran Abs Auto 0.01 X10*3/uL (0.00-0.03); Imm Gran Pct Auto 0.2 % (0.0-0.4); Lymphocytes Absolute Auto 1.4 X10*3/uL (1.2-4.9); Lymphocytes Percent Auto 29.6 % (20-40); Mean Corpuscular Hemoglobin 32.1 pg (27.0-33.0); Mean Corpuscular Volume 97.4 fL (80.0-98.0); Mean Platelet Volume 9.2 fL (9.4-12.4); Monocytes Absolute Auto 0.5 X10*3/uL (0.1-1.2); Monocytes Percent Auto 10.4 % (2-11); Neutrophils Absolute Auto 2.7 x10*3/uL (2.0-8.3); Neutrophils Percent Auto 57.7 % (45-73); Platelet Count 256 X10*3/uL (160-400); Red Blood Count 3.89 X10*6/uL (4.60-5.80); Red Cell Distribution Width 13.8 % (11.0-16.0); White Blood Count 4.7 X10*3/uL (4.8-10.8)
[2022-03-17] MEDS: 0.9 % Sodium Chloride 500 ML 999 ML IV (15:04)
[2022-03-17] MEDS: HYDROmorphone HCl 0.5 MG/0.5 ML SYRINGE IVPUSH (15:04)
[2022-03-17] MEDS: Aspirin 81 MG TAB.CHEW 243 MG PO (15:05)
--- NOTE | 2022-03-17 15:07 | PC.NURSE ---
patient a&ox3, iv inserted, pin or clip fastener applied vss, ekg performed, ivf hung per order, pt medicated per order.
[2022-03-17 15:11] LABS: D Dimer High Sensitivity 549 NG/ML
[2022-03-17 15:24] LABS: Alanine Aminotransferase 36 U/L (0-40); Albumin Level 4.3 g/dL (3.5-5.0); Alkaline Phosphatase 99 U/L (39-117); Anion Gap 11 (12-20); Aspartate Amino Transferase 40 U/L (5-37); Bilirubin Direct 0.4 mg/dL (0.0-0.5); Blood Urea Nitrogen 21 mg/dL (9-16); Calcium 9.6 mg/dL (8.4-10.2); Carbon Dioxide 24 mmol/L (22-29); Chloride 111 mmol/L (96-108); Estimated Glomerular Filt Rate > 60; Glucose Random 94 mg/dL (60-115); Potassium 4.2 mmol/L (3.3-5.1); Sodium 142 mmol/L (135-145); Total Protein 6.8 g/dL (6.5-8.0)
[2022-03-17 15:27] LABS: Troponin-I High Sensitivity 7.8 ng/L (<3.5-35.0)
[2022-03-17 16:20] VITALS: BP 150/69; PULSE 60; RESP 20; TEMP 36.7; O2SAT 97
--- NOTE | 2022-03-17 18:02 | PHA.MEDREC ---
Pharmacy Consult ? Medication Reconciliation Pharmacy has completed the medication reconciliation.
[2022-03-17 18:27] VITALS: BP 163/92; PULSE 61; RESP 14; O2SAT 99
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
[2022-03-17 21:04] LABS: Troponin-I High Sensitivity 7.6 ng/L (<3.5-35.0)
--- NOTE | 2022-03-17 21:29 | PC.NURSE ---
Provider came to pt's room to explain discharge details. Pt then reported that he still cannot feel or move his legs at all and that started this morning. Provider is assessing CSM in all extremities.
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
[2022-03-17 23:45] VITALS: BP 156/75; PULSE 54; RESP 14; TEMP 36.8; O2SAT 99
--- NOTE | 2022-03-17 23:53 | P.HPHOSP_ITS ---
History of Present Illness Date of Service: 03/17/22 Chief Complaint: Chest pain/syncope This is a 67-year-old male with pertinent history of CAD status post stent placement, essential hypertension, gout who presents to the emergency department for evaluation of chest discomfort, syncope and bilateral lower extremity weakness. Patient states he started having chest pain when he was in the cue to get male from post office. It was associated with shortness of breath. Chest pain worsen with deep inspiration. Patient states he had 3 episodes of brief loss of consciousness while he was being brought to the ER. No palpitations prior to the episode. No jerking movement of extremities, no tongue bite, no urinary or bowel incontinence. In the emergency department, patient with negative V/Q scan. He states that he is allergic to dye and hence CTA was not done. While patient was being discharged after 3 sets of negative troponin, he stated that he had sudden onset of weakness in bilateral lower extremities. Patient unable to move lower extremities. States this has happened in the past when he received contrast for imaging. Denies any back pain. Does have numbness in bilateral lower extremities. No upper extremity weakness. No facial droop, no dysarthria. Review of Systems Constitutional: Constitutional: Reports weakness Cardiovascular: Cardiovascular: Reports chest pain and Reports dyspnea on exertion Respiratory: Respiratory: Reports dyspnea on exertion Gastrointestinal: Gastrointestinal: Reports no additional gastrointestinal complaints Genitourinary: Genitourinary: Reports no additional male genitourinary complaints Neurologic: Reports weakness [facility] Medical History Airway polyps Chest pain Coronary artery disease Gout Hypertension Incarcerated left inguinal hernia Ischemic heart disease due to coronary artery obstruction Left bundle branch block Left bundle branch block NICM (nonischemic cardiomyopathy) No known health problems Peptic ulcer disease Family History Father Myocardial infarction Surgical History H/O heart artery stent History of partial gastrectomy Social History Household Members: None Household Members Other:: with friends, staying with friends Housing: Other Housing Other:: staying with a friend and financial assistance to find a hotel room Do you presently have visiting nurse or other home services: No Alcohol intake: never Patient Tobacco Use Status: Never used Tobacco Second Hand Smoke Exposure: Yes (friends he stays with smoke outside) Advance Directives: Yes Advance Directives on File: Yes Advance Directives Date on File: 01/29/22 service: No Meds Allergies Allergy/AdvReac Type Severity Reaction Status Date / Time polyethylene glycol Allergy Itching Verified 06/16/21 10:56 Iodinated Contrast Media AdvReac Severe PARALYSIS/N Verified 08/07/21 03:33 [CONTRAST, IV] UMBNESS Active Medications: Current Medications Pharmacy Consult (Consult Rx Perform Med Rec) 1 each MISCELLANE ONCE PRN PRN Reason: Consult order Home Medications Medication Instructions Recorded Confirmed Last Taken Type allopurinol 100 mg tablet 100 mg PO DAILY@1700 08/07/21 03/17/22 03/17/22 History isosorbide mononitrate 30 mg 30 mg PO DAILY@0800 08/07/21 03/17/22 03/17/22 History tablet,extended release 24 hr losartan 25 mg tablet 25 mg PO DAILY@0800 08/07/21 03/17/22 03/17/22 History metoprolol succinate 50 mg 50 mg PO DAILY@0800 08/07/21 03/17/22 03/17/22 History tablet,extended release 24 hr nitroglycerin 0.4 mg sublingual 1 tab sublingual TID PRN Chest Pain 08/07/21 03/17/22 Unknown History tablet acetaminophen 500 mg tablet 2 tab PO TID PRN pain 02/16/22 03/17/22 Unknown History Physical Exam Vital Signs and Narrative: Vital Signs: Last Vital Signs Temp 98.3 F 03/17/22 23:45 Pulse 54 03/17/22 23:45 Resp 14 03/17/22 23:45 BP 156/75 H 03/17/22 23:45 Pulse Ox 99 03/17/22 23:45 O2 Del Method 03/17/22 23:45 BMI result Body Mass Index 24.5 Middle-aged male lying in bed in no distress Neck supple, no JVD Regular rate and rhythm, S1-S2 heard Regular breath sounds bilaterally, no wheezing or crackles appreciated Abdomen soft nontender, no guarding, no rigidity Patient is awake, alert and oriented to self, place, time and person ; strength 0 out of 5 in bilateral lower extremity, 5/5 in bilateral upper extremity, no upper extremity pronator drift, tongue uvula midline, no facial droop, no dysarthria, no nystagmus Psych: Normal mood No pedal edema Results Labs 03/17/22 14:51 03/17/22 14:51 Labs: Laboratory Results - last 24 hr 03/17/22 03/17/22 03/17/22 14:51 14:51 14:51 MCV 97.4 MCH 32.1 MCHC 33.0 RDW 13.8 Plt Count 256 MPV 9.2 L Immature Gran % (Auto) 0.2 Neut % (Auto) 57.7 Lymph % (Auto) 29.6 Dewey % (Auto) 10.4 Eos % (Auto) 1.3 Baso % (Auto) 0.8 Lymph # (Auto) 1.4 Dewey # (Auto) 0.5 Eos # (Auto) 0.1 Baso # (Auto) 0.0 Abs Immat Gran (auto) 0.01 Absolute Neuts (auto) 2.7 Absolute Nucleated RBC 0.000 Nucleated RBC % (auto) 0.0 D-Dimer High Sensitivty 549 Anion Gap 11 L Estim Creat Clear Calc 76.0 Estimated GFR > 60 Random Glucose 94 Calcium 9.6 Total Bilirubin 1.0 Direct Bilirubin 0.4 AST 40 H ALT 36 Alkaline Phosphatase 99 Troponin I High Sens Total Protein 6.8 Albumin 4.3 03/17/22 03/17/22 03/17/22 14:51 16:50 20:30 MCV MCH MCHC RDW Plt Count MPV Immature Gran % (Auto) Neut % (Auto) Lymph % (Auto) Dewey % (Auto) Eos % (Auto) Baso % (Auto) Lymph # (Auto) Dewey # (Auto) Eos # (Auto) Baso # (Auto) Abs Immat Gran (auto) Absolute Neuts (auto) Absolute Nucleated RBC Nucleated RBC % (auto) D-Dimer High Sensitivty Anion Gap Estim Creat Clear Calc Estimated GFR Random Glucose Calcium Total Bilirubin Direct Bilirubin AST ALT Alkaline Phosphatase Troponin I High Sens 7.8 D 7.0 7.6 Total Protein Albumin Imaging Radiologist's Impressions: Impressions Chest X-Ray 03/17/22 15:40 IMPRESSION: No acute cardiopulmonary process. Pulmonary Perfusion Imaging 03/17/22 18:15 IMPRESSION: Normal radionuclide lung perfusion scan. Assessment and Plan (1) Syncope: Status: Acute (2) Paralysis of both lower limbs: Status: Acute (3) Atypical chest pain: Status: Acute Plan This is a 67-year-old male with pertinent history of CAD status post stent placement, essential hypertension, gout who presents to the emergency department for evaluation of chest discomfort, syncope and bilateral lower extremity weakness. #. Syncope: Unclear etiology. Obtain orthostatic vital signs. Consulting cardiology and Neurology as below. Will keep on engine monitor #. Atypical chest discomfort: Troponin negative. Consulting cardiology for assistance in patient with atypical chest discomfort and sudden-onset syncope. Also obtaining echo #. Bilateral lower extremity weakness: Sudden-onset with inability to move bilateral lower extremity. Consulting Neurology for assistance #. Coronary artery disease status post stent: Patient not on antiplatelet agent. Continue metoprolol and high-intensity statin #. Essential hypertension: Continue home antihypertensives #. Gout: On allopurinol DVT prophylaxis: Lovenox 40 mg daily Cardiac diet Full code Time Spent With Patient Time: Total time managing care of this patient today ____ minutes. Quality Stroke Does the patient have a stroke diagnosis?: No VTE Prior VTE?: No VTE Risk Level:: Medical - moderate - high VTE Device Contraindication: Treatment Not Indicated VTE Drug Contraindication: N/A - Med Ordered
[2022-03-18] VITALS (8 sets, daily range): BP systolic 130–182; BP diastolic 65–88; PULSE 55–70; RESP 12–20; TEMP 36.1–37; O2SAT 99–100; BMI 24.0
[2022-03-18 00:05] LABS: COVID-19 Test Negative (Negative); IDNOW Serial# 6674DD1D
[2022-03-18] MEDS: Enoxaparin Sodium 40 MG/0.4 ML SYRINGE SUBCUT (01:42)
[2022-03-18] MEDS: 0.9 % Sodium Chloride Flush 3 ML SYRINGE IVFLUSH ×3 (01:43→17:19)
[2022-03-18] MEDS: Acetaminophen 325 MG TABLET 650 MG PO (04:47)
[2022-03-18] MEDS: Losartan Potassium 25 MG TABLET PO (04:51)
[2022-03-18] MEDS: Metoprolol Succinate ER 50 MG TAB.ER.24H PO (04:51)
[2022-03-18 06:06] LABS: MANUAL DIFF FLAG NO
[2022-03-18 06:07] LABS: Basophils Percent Auto 0.7 % (0-2); Eosinophils Absolute Auto 0.1 X10*3/uL (0.0-0.4); Eosinophils Percent Auto 3.2 % (0-4); Hematocrit 35.8 % (42.0-52.0); Hemoglobin 11.8 g/dl (14.0-18.0); Imm Gran Abs Auto 0.01 X10*3/uL (0.00-0.03); Imm Gran Pct Auto 0.2 % (0.0-0.4); Lymphocytes Absolute Auto 1.6 X10*3/uL (1.2-4.9); Lymphocytes Percent Auto 40.2 % (20-40); Mean Corpuscular Hemoglobin 32.2 pg (27.0-33.0); Mean Corpuscular Volume 97.5 fL (80.0-98.0); Mean Platelet Volume 9.4 fL (9.4-12.4); Monocytes Absolute Auto 0.3 X10*3/uL (0.1-1.2); Monocytes Percent Auto 8.4 % (2-11); Neutrophils Absolute Auto 1.9 x10*3/uL (2.0-8.3); Neutrophils Percent Auto 47.3 % (45-73); Platelet Count 223 X10*3/uL (160-400); Red Blood Count 3.67 X10*6/uL (4.60-5.80); Red Cell Distribution Width 13.9 % (11.0-16.0); White Blood Count 4.1 X10*3/uL (4.8-10.8)
[2022-03-18 06:27] LABS: Troponin-I High Sensitivity 7.3 ng/L (<3.5-35.0)
[2022-03-18 06:28] LABS: Anion Gap 12 (12-20); Blood Urea Nitrogen 16 mg/dL (9-16); Calcium 9.2 mg/dL (8.4-10.2); Carbon Dioxide 25 mmol/L (22-29); Chloride 109 mmol/L (96-108); Creatinine Clr Calc Pharmacy 91.2; Estimated Glomerular Filt Rate > 60; Glucose Random 160 mg/dL (60-115); Potassium 4.2 mmol/L (3.3-5.1); Sodium 142 mmol/L (135-145)
--- NOTE | 2022-03-18 07:00 | CA_ITS ---
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 Moderate LV systolic dysfunction with LVEF of 35-40% with mild LVH with impaired relaxation filling pattern 2. Normal cardiac valvular Doppler 3. Normal RV systolic pressure 4. No pericardial effusion Findings Left Ventricle Normal left ventricular cavity size. There is mildly increased left ventricular wall thickness. The left ventricular systolic function is normal. The visually estimated ejection fraction is between 35-40%. There is moderate global hypokinesis. There is paradoxical septal motion consistent with a left bundle branch block. Spectral Doppler is indicative of an impaired relaxation filling pattern. E/E prime ratio is between 8 and 15 consistent with indeterminate filling pressures. Right Ventricle Normal right ventricular cavity size and systolic function. Atria The left atrium is likely dilated. Interatrial shunt cannot be excluded. The right atrium is normal in size. Aortic Valve Normal aortic valve structure and function. There is no aortic valve stenosis. There is no aortic valve regurgitation. Mitral Valve Normal mitral valve structure and function. There is trace mitral valve regurgitation. There is no mitral valve stenosis. Pulmonic Valve The pulmonic valve is likely normal. There is trace pulmonic valve regurgitation. Tricuspid Valve Normal tricuspid valve structure. There is trace tricuspid valve regurgitation. The right ventricular systolic pressure is normal. The right ventricular systolic pressure is 21 mmHg. Normal right atrial pressure. There is no evidence of pulmonary hypertension. Great Vessels All visible segments of the aorta are normal in size. The pulmonary artery was not well visualized. Venous The inferior vena cava is normal in size and collapses greater than 50% with inspiration. Pericardium/Pleural There is no evidence of pericardial effusion. Prior Study Comparison No prior study available for comparison. Measurements 2D Linear Measurements IVSd: 1.21 0.6-0.9/0.6-1.0 cm LVIDd: 4.79 3.9-5.3/4.2-5.9 cm LVIDd Index: 2.48 2.4-3.2/2.2-3.1 cm/m2 LVIDs: 3.35 2.0-3.6 cm LVPWd: 1.24 0.7-1.1 cm Ao Root: 3.60 2.1-3.5 cm LA Diam: 3.90 2.7-3.8/3.0-4.0 cm LAIDs Index: 2.02 1.5-2.3 cm/m2 LV Mass: 280.39 67-162/88-224 g LV Mass Index: 145.28 43-95/49-115 g/m2 LVOT Diam: 2.20 3.0+(-)1.3 cm 2D Systolic Function EF 4C: 34.20 >55% EF 2C: 40.30 >55% EF BiP: 39.50 >55% Mitral Valve MV Pk E: 0.75 MV PK A: 1.05 MV Decel Time: 358.00 E/A: 0.70 E'Lateral: 8.27 E'Medial: 4.68 E/E' Med: 16.10 E/E' Lat: 9.10 PHT: 105.00 MVA PHT: 2.10 Decel [place]: 2.11 Aortic Valve AoV Pk Darío: 1.36 AoV Mn Darío: 0.84 AoV VTI: 0.31 AoV Pk Grad: 7.00 Aov Mn Grad: 4.00 YUNIER Cont.VTI: 2.17 LVOT LVOT Pk Darío: 0.85 LVOT Mn Darío: 0.52 LVOT VTI: 0.17 LVOT Pk Grad: 3.00 LVOT Mn Grad: 2.00 LVOT Diam: 2.20 LVOT Area: 3.80 Diastolic Function MV Pk E: 0.75 MV Pk A: 1.05 E/A: 0.70 E'Medial: 4.68 E/E' Med: 16.10 E' Laterial: 8.27 E/E' Lat: 9.10 Right Ventricle TAPSE (mm): 22.00 TVS' Darío: 15.00 Tricuspid Valve TR Pk Darío: 2.14 TR Pk Grad: 18.00 RA Press: 3.00 RVSP: 21.00 Great Vessels Aorta Ao Root-2D: 3.60 2.0-3.7 cm Ao Asc: 3.20 2.1-3.4 cm Pulmonary Valve PV Pk Darío: 1.15 Peak PV Grad: 5.00 Updated in Other Vendor System with Status of Final Harry South MD electronically signed on 03/18/2022 2:46:33 PM with status of Final
[2022-03-18] MEDS: Isosorbide Mononitrate 30 MG TAB.ER.24H PO (08:56)
[2022-03-18] MEDS: Aspirin 81 MG TAB.CHEW PO (08:56)
[2022-03-18] MEDS: Nitroglycerin 0.4 MG TAB.SUBL SUBLINGUAL (08:57)
--- NOTE | 2022-03-18 10:21 | P.CNNE_ITS ---
History of Present Illness Data of Consult Service Date: 03/18/22 Primary Care Provider: Naseem Alford MD [facility] Reason for consult: Leg weakness 67 years old man who was admitted hospital with chest pain syndrome yesterday complained that his legs were weak and he was not able to move them. This morning he was fine stating that symptom was resolved. He said that he had this symptom couple of times in the past. There was no associated numbness pain or loss of bowel bladder control. Review of Systems Review of Systems: No numbness tingling or bowel bladder control problems. [facility] Past Medical History Medical History Airway polyps Chest pain Coronary artery disease Gout Hypertension Incarcerated left inguinal hernia Ischemic heart disease due to coronary artery obstruction Left bundle branch block Left bundle branch block NICM (nonischemic cardiomyopathy) No known health problems Peptic ulcer disease Family History Family History Father Myocardial infarction Surgical History Surgical History H/O heart artery stent History of partial gastrectomy Social History Social History Household Members: None Household Members Other:: with friends, staying with friends Housing: Other Housing Other:: staying with a friend and financial assistance to find a hotel room Do you presently have visiting nurse or other home services: No Alcohol intake: never Patient Tobacco Use Status: Never used Tobacco Second Hand Smoke Exposure: Yes (friends he stays with smoke outside) Advance Directives: Yes Advance Directives on File: Yes Advance Directives Date on File: 01/29/22 service: No Meds Allergies Allergy/AdvReac Type Severity Reaction Status Date / Time polyethylene glycol Allergy Itching Verified 03/18/22 04:27 Iodinated Contrast Media AdvReac Severe PARALYSIS/N Verified 03/18/22 04:27 [CONTRAST, IV] UMBNESS Active Medications: Current Medications Acetaminophen (Acetaminophen 325 Mg Tablet) 650 mg PO Q6H PRN PRN Reason: Pain, Mild (Pain Scale 1-3) Last Admin: 03/18/22 04:47 Dose: 650 mg Allopurinol (Allopurinol 100 Mg Tablet) 100 mg PO DAILY@1700 [facility] Aspirin (Aspirin 81 Mg Tab.Chew) 81 mg PO DAILY [facility] Last Admin: 03/18/22 08:56 Dose: 81 mg Atorvastatin Calcium (Atorvastatin Calcium 80 Mg Tablet) 80 mg PO BEDTIME [facility] Enoxaparin Sodium (Enoxaparin Sodium 40 Mg/0.4 Ml Syringe) 40 mg SUBCUT Q24H [facility] Last Admin: 03/18/22 01:42 Dose: 40 mg Isosorbide Mononitrate (Isosorbide Mononitrate 30 Mg Tab.Er.24h) 30 mg PO DAILY@0800 [facility]; Protocol Last Admin: 03/18/22 08:56 Dose: 30 mg Losartan Potassium (Losartan Potassium 25 Mg Tablet) 25 mg PO DAILY@0800 [facility]; Protocol Last Admin: 03/18/22 04:51 Dose: 25 mg Melatonin (Melatonin 3 Mg Tablet) 6 mg PO BEDTIME PRN PRN Reason: Insomnia Metoprolol Succinate (Metoprolol Succinate Er 50 Mg Tab.Er.24h) 50 mg PO DAILY@0800 [facility]; Protocol Last Admin: 03/18/22 04:51 Dose: 50 mg Nitroglycerin (Nitroglycerin 0.4 Mg Tab.Subl) 0.4 mg SUBLINGUAL TID PRN PRN Reason: Chest Pain Last Admin: 03/18/22 08:57 Dose: 0.4 mg Ondansetron HCl (Ondansetron Hcl 4 Mg/2 Ml Vial) 4 mg IVPUSH Q8H PRN PRN Reason: Nausea and Vomiting Pharmacy Consult (Consult Rx Perform Med Rec) 1 each MISCELLANE ONCE PRN PRN Reason: Consult order Sodium Chloride (0.9 % Sodium Chloride Flush 3 Ml Syringe) 3 ml IVFLUSH QSHIFT [facility] Last Admin: 03/18/22 08:56 Dose: 3 ml Home Medications Medication Instructions Recorded Confirmed Last Taken Type allopurinol 100 mg tablet 100 mg PO DAILY@1700 08/07/21 03/17/22 03/17/22 History isosorbide mononitrate 30 mg 60 mg PO DAILY@0808/07/21 03/18/22 03/17/22 History tablet,extended release 24 hr losartan 25 mg tablet 25 mg PO DAILY@0808/07/21 03/17/22 03/17/22 History metoprolol succinate 50 mg 50 mg PO DAILY@0800 08/07/21 03/17/22 03/17/22 History tablet,extended release 24 hr nitroglycerin 0.4 mg sublingual 1 tab sublingual TID PRN Chest Pain 08/07/21 03/17/22 Unknown History tablet acetaminophen 500 mg tablet 2 tab PO TID PRN pain 02/16/22 03/17/22 Unknown History aspirin 81 mg tablet 81 mg PO DAILY 03/18/22 03/18/22 Unknown History Physical Exam Vital Signs: Vital Signs: Last Vital Signs Temp 97.0 F 03/18/22 08:00 Pulse 63 03/18/22 08:00 Resp 19 03/18/22 08:00 BP 163/77 H 03/18/22 08:00 Pulse Ox 99 03/18/22 08:00 O2 Del Method 03/18/22 08:00 BMI result Body Mass Index 24.0 Neuro: Other: Alert and awake with normal spontaneity of speech fluency comprehension and affect. Leg strength was normal. Deep tendon reflexes 1+ with flexor plantars. Results Labs 03/18/22 05:56 03/18/22 05:56 Labs: Short CBC 03/17/22 03/18/22 Range/Units 14:51 05:56 WBC 4.7 L 4.1 L (4.8-10.8) X10*3/uL Hgb 12.5 L 11.8 L (14.0-18.0) g/dl Hct 37.9 L 35.8 L (42.0-52.0) % Plt Count 256 223 (160-400) X10*3/uL BMP 03/17/22 03/18/22 14:51 05:56 Sodium 142 142 Potassium 4.2 4.2 Chloride 111 H 109 H Carbon Dioxide 24 25 BUN 21 H 16 Creatinine 0.96 0.80 Calcium 9.6 9.2 Liver Function 03/17/22 Range/Units 14:51 Total Bilirubin 1.0 (0.0-1.0) mg/dL Direct Bilirubin 0.4 (0.0-0.5) mg/dL AST 40 H (5-37) U/L ALT 36 (0-40) U/L Alkaline Phosphatase 99 (39-117) U/L Albumin 4.3 (3.5-5.0) g/dL Assessment and Plan (1) Paralysis of both lower limbs: Status: Acute 67 years old man who reported that he had 3 episodes of bilateral leg paralysis. The last 1 yesterday and today he was back to normal. Etiology of this is unclear. If weakness was real, 1 should consider possibility of spinal AVM. I recommend obtaining MRI of cervical and thoracic spine to rule out any possibility of AVM. Time Spent With Patient Time: Total time managing care of this patient today ____ minutes. Procedures Date of Service Date of Service: 03/18/22
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
[2022-03-18] MEDS: Ketorolac Tromethamine 15 MG/ML VIAL IVPUSH (13:09)
[2022-03-18] MEDS: Lidocaine 4 % Patch ADH..PATCH 1 PATCH TRANSDERMA (13:09)
--- NOTE | 2022-03-18 13:52 | MHC.CM.PN ---
met with pt who is indepedent has own ride home and is danyelle pena
[2022-03-18] MEDS: allopurinoL 100 MG TABLET PO (17:19)
[2022-03-19] VITALS: BP 145/72; PULSE 52; RESP 18; TEMP 36.5; O2SAT 99
[2022-03-19] MEDS: Enoxaparin Sodium 40 MG/0.4 ML SYRINGE SUBCUT (00:52)
[2022-03-19] MEDS: 0.9 % Sodium Chloride Flush 3 ML SYRINGE IVFLUSH ×2 (00:52→09:10)
[2022-03-19] MEDS: Atorvastatin Calcium 80 MG TABLET PO (00:52)
[2022-03-19 04:00] VITALS: PULSE 54; RESP 20
[2022-03-19] MEDS: Ketorolac Tromethamine 15 MG/ML VIAL IVPUSH (06:24)
[2022-03-19 07:39] VITALS: BP 138/78; PULSE 60; RESP 20; TEMP 37.3; O2SAT 98
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
[2022-03-19] MEDS: Aspirin 81 MG TAB.CHEW PO (09:09)
[2022-03-19] MEDS: Metoprolol Succinate ER 50 MG TAB.ER.24H PO (09:09)
[2022-03-19] MEDS: Isosorbide Mononitrate 30 MG TAB.ER.24H PO (09:09)
[2022-03-19] MEDS: Losartan Potassium 25 MG TABLET PO (09:10)
--- NOTE | 2022-03-19 09:44 | MHC.CM.PN ---
Patient has been medically cleared for dc to home today, self care.
[2022-03-19 10:59] VITALS: BP 141/78; PULSE 62; RESP 20; TEMP 37.1; O2SAT 98
--- NOTE | 2022-03-19 13:13 | MHC.CM.PN ---
MITCHEL returned a call to Petty Mendiola from [facility] @ [phone], but was only able to leave a voice message. MITCHEL informed Petty that Patient was dc to home today, from the hospital.
== END 2022-03-19 13:45 | disposition home or self-care (01) ==
LOC: HO.ED 21:25 → HO.EDOVER 03-18 00:35 → HO.IMC 03-18 00:57
PROVIDERS: Admitting Provider Student in an Organized Health Care Education/Training Program; Emergency Provider Emergency Medicine Emergency Medical Services; PCP Internal Medicine; Visit Provider Family Medicine
DX: R07.89 Other chest pain (principal); R55 Syncope and collapse; I25.10 Atherosclerotic heart disease of native coronary artery without angina pectoris; G82.20 Paraplegia, unspecified; R53.1 Weakness; Z20.822 Contact with and (suspected) exposure to COVID-19; I10 Essential (primary) hypertension; I44.7 Left bundle-branch block, unspecified; M10.9 Gout, unspecified; Z79.02 Long term (current) use of antithrombotics/antiplatelets; Z79.899 Other long term (current) drug therapy
CPT/HCPCS: 36415; 71045; 72141; 72146; 78580; 80048; 80076; 84484; 85025; 85379; 87635; 93005; 93306; 96361; 96372; 96374; 96375; 96376; 99222; 99284; 99285; A9540; J1170; J1650; J1885

== ENCOUNTER 2022-03-19 20:10 | Emergency (ER) | payer MEDICARE, MEDICAID, SELFPAY ==
--- NOTE | 2022-03-19 | ECG_ITS ---
Test Reason : CX PAIN Blood Pressure : / mmHG Vent. Rate : 064 BPM Atrial Rate : 064 BPM P-R Int : 158 ms QRS Dur : 132 ms QT Int : 420 ms P-R-T Axes : 046 005 -02 degrees QTc Int : 433 ms Normal sinus rhythm Left bundle branch block Abnormal ECG When compared with ECG of 17-MAR-2022 14:50, No significant change was found Referred By: Generic ED Physician Electronically Signed By:AGUILAR REYES MD
[2022-03-19 20:21] VITALS: BP 179/78; PULSE 73; PULSE 74; RESP 20; TEMP 36.8; O2SAT 100; O2SAT 98; BMI 23.9
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
[2022-03-19] MEDS: Ketorolac Tromethamine 30 MG/ML VIAL IVPUSH (21:32)
[2022-03-19 21:38] VITALS: BP 150/76; PULSE 67; RESP 16; O2SAT 98
--- NOTE | 2022-03-19 21:40 | PC.NURSE ---
patient upset at time of discharge. This RN asking what more we can do for patient as he was just admitted and discharged from this hospital today, sent home with pain meds and a referral for follow up with pcp scheduled for tomorrow. patient appears upset telling this RN that he heard what the qa reviewer were saying about him patient telling this RN he is not making up his symptoms, this RN reassured patient that nobody believes he is making anything up, work up was done and is negative, doctor assessing patient this evening prescribed toradol iv for pain and encouraged patient to attend follow up appointment tomorrow as there is no further work up required today in ED. This RN offered patient a phone at time of discharge and ensured he had a way to get home, patient states i am all set on a ride thank you patient ambulatory in no apparent distress at time of discharge. states he will follow up with pcp and continue medications as prescribed.
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
--- NOTE | 2022-03-19 21:59 | PC.NURSE ---
Was approached by case-management (Vivian) who went to assess pt housing and living conditions, when she trying to do her assessment. pt refused to speak to her and reported by extremely upset with today visit. The keno writer/runner attempt to do patient recovery. Pt refused to have a conversation and said he would be speaking to his rate setter. He did confirm he as unhappy with the care and it began with EMS.
== END 2022-03-19 21:45 | disposition home or self-care (01) ==
PROVIDERS: Emergency Provider Internal Medicine; PCP Internal Medicine
DX: R07.89 Other chest pain (principal); Z79.899 Other long term (current) drug therapy
CPT/HCPCS: 93005; 96374; 99284; J1885

== ENCOUNTER 2022-05-16 12:22 | Observation (INO) | payer MEDICARE, MEDICAID, SELFPAY ==
--- NOTE | 2022-05-16 | ECG_ITS ---
Test Reason : CHEST PAIN Blood Pressure : / mmHG Vent. Rate : 071 BPM Atrial Rate : 071 BPM P-R Int : 138 ms QRS Dur : 134 ms QT Int : 440 ms P-R-T Axes : 042 004 106 degrees QTc Int : 478 ms Sinus rhythm with Premature supraventricular complexes Possible Left atrial enlargement Left bundle branch block Abnormal ECG When compared with ECG of 19-MAR-2022 20:37, Premature supraventricular complexes are now Present T wave inversion no longer evident in Inferior leads Referred By: Generic ED Physician Electronically Signed By:Pio Bazan
[2022-05-16 12:29] VITALS: BP 158/68; BP 167/89; PULSE 73; PULSE 74; RESP 16; O2SAT 100; O2SAT 99; BMI 26.4
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
[2022-05-16 13:24] LABS: MANUAL DIFF FLAG NO
[2022-05-16 13:25] LABS: Basophils Percent Auto 0.5 % (0-2); Eosinophils Absolute Auto 0.2 X10*3/uL (0.0-0.4); Eosinophils Percent Auto 3.8 % (0-4); Hematocrit 36.7 % (42.0-52.0); Hemoglobin 12.1 g/dl (14.0-18.0); Imm Gran Abs Auto 0.01 X10*3/uL (0.00-0.03); Imm Gran Pct Auto 0.2 % (0.0-0.4); Lymphocytes Absolute Auto 1.5 X10*3/uL (1.2-4.9); Lymphocytes Percent Auto 23.1 % (20-40); Mean Corpuscular Hemoglobin 31.9 pg (27.0-33.0); Mean Corpuscular Volume 96.8 fL (80.0-98.0); Mean Platelet Volume 9.2 fL (9.4-12.4); Monocytes Absolute Auto 0.8 X10*3/uL (0.1-1.2); Monocytes Percent Auto 12.7 % (2-11); Neutrophils Absolute Auto 3.8 x10*3/uL (2.0-8.3); Neutrophils Percent Auto 59.7 % (45-73); Platelet Count 218 X10*3/uL (160-400); Red Blood Count 3.79 X10*6/uL (4.60-5.80); Red Cell Distribution Width 13.7 % (11.0-16.0); White Blood Count 6.3 X10*3/uL (4.8-10.8)
[2022-05-16 13:31] LABS: COVID-19 Test Negative (Negative); IDNOW Serial# 6674DD1D
[2022-05-16 14:09] VITALS: BP 121/98; PULSE 74; RESP 13; O2SAT 98
[2022-05-16 14:14] LABS: Alanine Aminotransferase 57 U/L (0-40); Albumin Level 4.3 g/dL (3.5-5.0); Alkaline Phosphatase 127 U/L (39-117); Anion Gap 13 (12-20); Aspartate Amino Transferase 104 U/L (5-37); Bilirubin Direct 0.3 mg/dL (0.0-0.5); Bilirubin Total 0.8 mg/dL (0.0-1.0); Blood Urea Nitrogen 30 mg/dL (9-16); Calcium 9.5 mg/dL (8.4-10.2); Carbon Dioxide 25 mmol/L (22-29); Chloride 107 mmol/L (96-108); Creatinine Clr Calc Pharmacy 71.5; Estimated Glomerular Filt Rate > 60; Glucose Random 94 mg/dL (60-115); Potassium 4.4 mmol/L (3.3-5.1); Sodium 141 mmol/L (135-145); Total Protein 6.3 g/dL (6.5-8.0)
[2022-05-16 14:27] LABS: TSH reflex Free T4 1.88 uIU/mL (0.32-4.0)
[2022-05-16 14:45] LABS: Appearance Urine Clear; Color Urine Yellow; Glucose Urine UA Negative (Negative); Leukocyte Esterase Urine Negative (Negative); Nitrite Urine Negative (Negative); Specific Gravity - Urine 1.025 (1.005-1.025); Urine Blood Negative (Negative); Urine Ketones Negative (Negative); Urine Protein Negative (Neg-Trace)
[2022-05-16] MEDS: 0.9 % Sodium Chloride 1,000 ML 999 ML IVCONT (14:48)
--- NOTE | 2022-05-16 15:05 | PHA.MEDREC ---
Pharmacy Consult ? Medication Reconciliation Pharmacy has completed the medication reconciliation. spoke with patient and he had a list with him. His medications are currently at his friends house and his friend was not home today so he was unable to take anything.
[2022-05-16 15:28] VITALS: BP 143/82; PULSE 74; RESP 14; O2SAT 99
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
[2022-05-16 16:08] LABS: Lactate Dehydrogenase 335 U/L (118-273)
[2022-05-16 17:03] VITALS: PULSE 67; RESP 14; O2SAT 96
[2022-05-16] MEDS: 0.9 % Sodium Chloride 1,000 ML 100 ML IVCONT (17:04)
[2022-05-16 17:34] LABS: Cholesterol 128 mg/dL; HDL Cholesterol 71 mg/dL; LDL Cholesterol Calculated 49 mg/dl; Triglycerides 42 mg/dL
[2022-05-16 19:08] LABS: C Reactive Protein 1.07 mg/dL (< or = 0.50)
[2022-05-16 19:39] VITALS: BP 151/69; PULSE 79; RESP 16; TEMP 37.3; O2SAT 100
[2022-05-16 20:21] LABS: INTERNATIONAL NORM RATIO 1.2 (0.9-1.1); Prothrombin Time 13.5 SEC (10.0-13.1)
[2022-05-16 21:51] LABS: Erythrocyte Sedimentation Rate 10 MM/HR (0-15)
[2022-05-16 23:36] VITALS: BP 167/74; PULSE 81; RESP 18; TEMP 36.6; O2SAT 98
[2022-05-16] MEDS: Acetaminophen 325 MG TABLET 650 MG PO (23:39)
[2022-05-17] VITALS (10 sets, daily range): BP systolic 114–174; BP diastolic 59–78; PULSE 60–73; RESP 15–20; TEMP 36.4–36.8; O2SAT 95–100
[2022-05-17] MEDS: 0.9 % Sodium Chloride 1,000 ML 100 ML IVCONT ×2 (03:39→19:17)
[2022-05-17] MEDS: Nitroglycerin 0.4 MG TAB.SUBL SUBLINGUAL ×2 (05:20→05:31)
--- NOTE | 2022-05-17 05:25 | ECG_ITS ---
Test Reason : cp Blood Pressure : / mmHG Vent. Rate : 068 BPM Atrial Rate : 068 BPM P-R Int : 156 ms QRS Dur : 130 ms QT Int : 452 ms P-R-T Axes : 049 005 102 degrees QTc Int : 480 ms Normal sinus rhythm Left bundle branch block Abnormal ECG When compared with ECG of 16-MAY-2022 12:40, Premature supraventricular complexes are no longer Present Nonspecific T wave abnormality, worse in Inferior leads Referred By: Reese Valentino Electronically Signed By:AGUILAR REYES MD
[2022-05-17] MEDS: Acetaminophen 325 MG TABLET 650 MG PO ×2 (05:41→20:55)
[2022-05-17] MEDS: Morphine Sulfate 2 MG/ML CARTRIDGE 1 MG IVPUSH (06:28)
[2022-05-17 06:29] LABS: MANUAL DIFF FLAG NO
[2022-05-17 06:39] LABS: Basophils Percent Auto 0.7 % (0-2); Eosinophils Absolute Auto 0.3 X10*3/uL (0.0-0.4); Eosinophils Percent Auto 7.2 % (0-4); Hematocrit 33.7 % (42.0-52.0); Lymphocytes Absolute Auto 1.3 X10*3/uL (1.2-4.9); Lymphocytes Percent Auto 29.5 % (20-40); Mean Corpuscular HGB Conc 32.6 g/dl (31.0-36.0); Mean Corpuscular Hemoglobin 32.2 pg (27.0-33.0); Mean Corpuscular Volume 98.5 fL (80.0-98.0); Mean Platelet Volume 10.4 fL (9.4-12.4); Monocytes Absolute Auto 0.6 X10*3/uL (0.1-1.2); Monocytes Percent Auto 13.7 % (2-11); Neutrophils Absolute Auto 2.1 x10*3/uL (2.0-8.3); Neutrophils Percent Auto 48.9 % (45-73); Platelet Count 204 X10*3/uL (160-400); Red Blood Count 3.42 X10*6/uL (4.60-5.80); Red Cell Distribution Width 13.7 % (11.0-16.0); White Blood Count 4.3 X10*3/uL (4.8-10.8)
[2022-05-17 06:52] LABS: Troponin-I High Sensitivity 10.9 ng/L (<3.5-35.0)
--- NOTE | 2022-05-17 07:09 | PC.NURSE ---
Pt c/0 10/10 chest pain BP-159/73 p-70 99% on RA notified stat EKG done-LBBB NSR,medicated with nitro 0.4mg SL x 2 doses with no relief notified ordered morphine 1mg IV x 1 dose given at 0630 states pain down to 6/10.Troponin ordered results pending.Last bp-157/72 p-69 .resting in bed report given to oncoming RN.
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
[2022-05-17] MEDS: Losartan Potassium 25 MG TABLET PO (07:36)
[2022-05-17] MEDS: Metoprolol Succinate ER 50 MG TAB.ER.24H PO (07:36)
[2022-05-17] MEDS: Isosorbide Mononitrate 30 MG TAB.ER.24H PO (07:36)
[2022-05-17] MEDS: Aspirin 81 MG TAB.CHEW PO (07:36)
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
[2022-05-17 10:38] LABS: Alanine Aminotransferase 37 U/L (0-40); Albumin Level 3.4 g/dL (3.5-5.0); Alkaline Phosphatase 103 U/L (39-117); Anion Gap 11 (12-20); Aspartate Amino Transferase 58 U/L (5-37); Bilirubin Direct 0.4 mg/dL (0.0-0.5); Bilirubin Total 1.2 mg/dL (0.0-1.0); Blood Urea Nitrogen 20 mg/dL (9-16); Calcium 8.7 mg/dL (8.4-10.2); Carbon Dioxide 22 mmol/L (22-29); Chloride 112 mmol/L (96-108); Creatinine Clr Calc Pharmacy 90.1; Estimated Glomerular Filt Rate > 60; Glucose Random 83 mg/dL (60-115); Potassium 4.3 mmol/L (3.3-5.1); Sodium 141 mmol/L (135-145); Total Protein 5.4 g/dL (6.5-8.0)
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
[2022-05-17] MEDS: allopurinoL 100 MG TABLET PO (16:03)
[2022-05-17] MEDS: 0.9 % Sodium Chloride Flush 3 ML SYRINGE IVFLUSH (16:06)
[2022-05-18 04:00] VITALS: BP 168/76; PULSE 63; TEMP 36.6; O2SAT 96
[2022-05-18] MEDS: 0.9 % Sodium Chloride 1,000 ML 100 ML IVCONT ×2 (04:05→12:32)
[2022-05-18 08:00] VITALS: BP 179/78; PULSE 68; RESP 18; TEMP 36.8; O2SAT 100
[2022-05-18] MEDS: Losartan Potassium 25 MG TABLET PO (08:21)
[2022-05-18] MEDS: Aspirin 81 MG TAB.CHEW PO (08:21)
[2022-05-18] MEDS: Metoprolol Succinate ER 50 MG TAB.ER.24H PO (08:21)
[2022-05-18] MEDS: Isosorbide Mononitrate 30 MG TAB.ER.24H PO (08:21)
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
[2022-05-18 11:59] VITALS: BP 179/78; PULSE 68; O2SAT 100
[2022-05-18 15:30] VITALS: BP 139/63; PULSE 63; RESP 17; TEMP 36.6; O2SAT 99
[2022-05-18] MEDS: allopurinoL 100 MG TABLET PO (16:30)
[2022-05-18] MEDS: Acetaminophen 325 MG TABLET 650 MG PO (19:53)
[2022-05-18 20:40] VITALS: BP 139/67; PULSE 64; RESP 21; TEMP 37; O2SAT 100
[2022-05-18 21:24] LABS: JO 1 Antibody <1.0 NEG AI (<1.0 NEG); Myeloperoxidase Antibody <1.0 AI; Proteinase 3 PR3 Antibodies <1.0 AI
[2022-05-19 04:00] VITALS: BP 165/75; PULSE 63; RESP 16; TEMP 36.4; O2SAT 95
[2022-05-19 07:30] VITALS: BP 173/88; PULSE 68; RESP 18; TEMP 36.7; O2SAT 96
[2022-05-19] MEDS: Metoprolol Succinate ER 50 MG TAB.ER.24H PO (08:05)
[2022-05-19] MEDS: Aspirin 81 MG TAB.CHEW PO (08:05)
[2022-05-19] MEDS: Isosorbide Mononitrate 30 MG TAB.ER.24H PO (08:05)
[2022-05-19] MEDS: 0.9 % Sodium Chloride Flush 3 ML SYRINGE IVFLUSH (08:05)
[2022-05-19] MEDS: Losartan Potassium 25 MG TABLET PO (08:05)
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
[2022-05-19 10:59] VITALS: BP 173/88; PULSE 68; O2SAT 96
[2022-05-19 12:00] VITALS: BP 152/79; PULSE 67; RESP 18; TEMP 36.7; O2SAT 100
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
--- NOTE | 2022-05-19 13:38 | MHC.CM.PN ---
Patient observed ambulating with a steady gait and no AD in his room today. Patient stated that he will discharge to a Hotel room instead of a ch[facility]. He has arranged for transportation at discharge.
[2022-05-19 14:39] LABS: Anti Nuclear Antibody Screen NEGATIVE (NEGATIVE)
[2022-05-21 03:23] LABS: Aldolase 14.2 U/L (<=8.1)
== END 2022-05-19 14:23 | disposition home or self-care (01) ==
LOC: HO.ED 14:14 → HO.EDOVER 16:47 → HO.S3 17:16
PROVIDERS: Physician Assistant; Student in an Organized Health Care Education/Training Program; Admitting Provider Physician Assistant; Emergency Provider Emergency Medicine; PCP Internal Medicine; Visit Provider Internal Medicine
DX: M60.9 Myositis, unspecified (principal); K40.20 Bilateral inguinal hernia, without obstruction or gangrene, not specified as recurrent; M62.82 Rhabdomyolysis; R21 Rash and other nonspecific skin eruption; R53.1 Weakness; Z20.822 Contact with and (suspected) exposure to COVID-19; I10 Essential (primary) hypertension; I44.7 Left bundle-branch block, unspecified; R26.81 Unsteadiness on feet; Z59.00 Homelessness unspecified; Z72.89 Other problems related to lifestyle; Z59.89 Other problems related to housing and economic circumstances; Z79.82 Long term (current) use of aspirin; Z79.899 Other long term (current) drug therapy; Z79.02 Long term (current) use of antithrombotics/antiplatelets
CPT/HCPCS: 36415; 80048; 80061; 80076; 81003; 82085; 82550; 83615; 83735; 84443; 84484; 85025; 85610; 85652; 85730; 86021; 86038; 86039; 86140; 86235; 87635; 93005; 96361; 96374; 97116; 97162; 97530; 99221; 99285; J2270

== ENCOUNTER 2022-05-27 01:34 | Emergency (ER) | payer MEDICARE, MEDICAID, SELFPAY ==
--- NOTE | ~2022-05-27 | XR_ITS ---
EXAMINATION: XR CHEST CLINICAL INFORMATION: Chest pain COMPARISON: 03/17/2022 TECHNIQUE: Frontal view of the chest was obtained. FINDINGS: Cardiac leads overlie the chest. The lungs are well expanded. There is no focal consolidation, edema, or effusion. No pneumothorax. The cardiomediastinal silhouette is within normal limits. No acute osseous abnormality. Left upper quadrant clips noted. XR/XR chest 1V IMPRESSION: No acute pulmonary disease.
--- NOTE | 2022-05-27 01:37 | ECG_ITS ---
Test Reason : CHEST PAIN Blood Pressure : / mmHG Vent. Rate : 087 BPM Atrial Rate : 087 BPM P-R Int : 144 ms QRS Dur : 126 ms QT Int : 392 ms P-R-T Axes : 055 -01 095 degrees QTc Int : 471 ms Normal sinus rhythm Left bundle branch block Abnormal ECG When compared with ECG of 17-MAY-2022 05:21, Nonspecific T wave abnormality no longer evident in Inferior leads T wave inversion now evident in Lateral leads Referred By: Generic ED Physician Electronically Signed By:KENNETH EVANS
[2022-05-27 01:44] VITALS: BP 140/72; PULSE 85; RESP 20; TEMP 36.6; O2SAT 98; BMI 26.4
[2022-05-27 01:56] LABS: MANUAL DIFF FLAG NO
[2022-05-27 01:59] LABS: Basophils Absolute Auto 0.1 X10*3/uL (0.0-0.2); Basophils Percent Auto 0.5 % (0-2); Eosinophils Absolute Auto 0.2 X10*3/uL (0.0-0.4); Eosinophils Percent Auto 2.6 % (0-4); Hematocrit 35.7 % (42.0-52.0); Hemoglobin 11.9 g/dl (14.0-18.0); Imm Gran Abs Auto 0.02 X10*3/uL (0.00-0.03); Imm Gran Pct Auto 0.2 % (0.0-0.4); Lymphocytes Absolute Auto 1.4 X10*3/uL (1.2-4.9); Lymphocytes Percent Auto 14.5 % (20-40); Mean Corpuscular HGB Conc 33.3 g/dl (31.0-36.0); Mean Platelet Volume 8.9 fL (9.4-12.4); Monocytes Absolute Auto 0.9 X10*3/uL (0.1-1.2); Monocytes Percent Auto 9.6 % (2-11); Neutrophils Absolute Auto 6.8 x10*3/uL (2.0-8.3); Neutrophils Percent Auto 72.6 % (45-73); Platelet Count 317 X10*3/uL (160-400); Red Blood Count 3.72 X10*6/uL (4.60-5.80); Red Cell Distribution Width 13.5 % (11.0-16.0); White Blood Count 9.4 X10*3/uL (4.8-10.8)
[2022-05-27 02:11] LABS: Anion Gap 16 (12-20); Blood Urea Nitrogen 27 mg/dL (9-16); Carbon Dioxide 25 mmol/L (22-29); Chloride 106 mmol/L (96-108); Creatinine Clr Calc Pharmacy 85.8; Estimated Glomerular Filt Rate > 60; Glucose Random 106 mg/dL (60-115); Potassium 4.8 mmol/L (3.3-5.1); Sodium 142 mmol/L (135-145)
[2022-05-27 02:17] LABS: Troponin-I High Sensitivity 11.7 ng/L (<3.5-35.0)
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
[2022-05-27] MEDS: LORazepam 1 MG TABLET PO (02:57)
--- NOTE | 2022-05-27 03:02 | PC.NURSE ---
pt a&o, no sign of distress at this time, pt change into hospital attire, pt placed on bedside monitor. EKG completed, labs collected and sent. Medicated per Mar will continue to monitor.
[2022-05-27 04:39] VITALS: BP 136/69; PULSE 83; RESP 18; TEMP 36.8; O2SAT 97
[2022-05-27 05:06] LABS: Troponin-I High Sensitivity 10.1 ng/L (<3.5-35.0)
[2022-05-27 05:31] VITALS: BP 144/73; PULSE 89; RESP 16; O2SAT 95
== END 2022-05-27 05:32 | disposition home or self-care (01) ==
PROVIDERS: Emergency Provider Internal Medicine; PCP Internal Medicine
DX: R07.89 Other chest pain (principal); F41.1 Generalized anxiety disorder; F43.0 Acute stress reaction; Z79.899 Other long term (current) drug therapy
CPT/HCPCS: 36415; 71045; 80048; 84484; 85025; 93005; 99284; 99285

== ENCOUNTER 2022-05-29 01:10 | Emergency (ER) | payer MEDICARE, MEDICAID, SELFPAY ==
[2022-05-29 01:21] VITALS: BP 153/60; PULSE 65; RESP 18; TEMP 36.8; O2SAT 99; BMI 25.8
[2022-05-29 01:42] VITALS: BP 149/71; PULSE 68; RESP 17; TEMP 37; O2SAT 100
--- NOTE | 2022-05-29 01:44 | ED_ITS ---
HPI - General Adult General Chief complaint: General Medical Stated complaint: severe muscle pain Time Seen by Provider: 05/29/22 01:36 Source: patient Mode of arrival: ambulatory Limitations: no limitations History of Present Illness HPI narrative: Patient homeless for last 3 weeks walk all the time come here for increased body aches exhaustion unable to sleep for last 5 -6 days patient was seen here 2 days ago for anxiety was seen here on 05/16 with CPK of 2310 today if he feels same diffuse body pain as he had last time patient denies chest pain at this time does have a history of ?LBBB, coronary disease status post stenting LAD in 01/19 repeat cardiac catheterization in 02/19 was negative, and nonischemic cardiomyopathy Related Data Home Medications Medication Instructions Recorded Confirmed allopurinol 100 mg tablet 100 mg PO DAILY@1700 08/07/21 05/16/22 isosorbide mononitrate 30 mg 30 mg PO DAILY@0800 08/07/21 05/16/22 tablet,extended release 24 hr losartan 25 mg tablet 25 mg PO DAILY@0800 08/07/21 05/16/22 metoprolol succinate 50 mg 50 mg PO DAILY@0800 08/07/21 05/16/22 tablet,extended release 24 hr nitroglycerin 0.4 mg sublingual 1 tab sublingual TID PRN Chest Pain 08/07/21 05/16/22 tablet acetaminophen 500 mg tablet 2 tab PO TID PRN pain 02/16/22 05/16/22 aspirin 81 mg tablet 81 mg PO DAILY 03/18/22 05/16/22 fluticasone propionate 50 1 spray intranasal DAILY PRN 05/16/22 05/16/22 mcg/actuation nasal Allergy Symptoms spray,suspension ibuprofen 200 mg tablet 200 mg PO Q6H PRN Pain 05/16/22 05/16/22 Previous Rx's Medication Instructions Recorded lorazepam 1 mg tablet (Ativan) 1 mg PO BEDTIME PRN anxiety #10 05/27/22 tabs Allergies Allergy/AdvReac Type Severity Reaction Status Date / Time polyethylene glycol Allergy Itching Verified 05/27/22 01:53 Iodinated Contrast Media AdvReac Severe PARALYSIS/N Verified 05/27/22 01:53 [CONTRAST, IV] UMBNESS Review of Systems Review of Systems: Yes all other systems are reviewed and are negative [facility] Past Medical History Medical History Airway polyps Atypical chest pain Chest pain Coronary artery disease Gout Hypertension Incarcerated left inguinal hernia Ischemic heart disease due to coronary artery obstruction Left bundle branch block Left bundle branch block NICM (nonischemic cardiomyopathy) No known health problems Peptic ulcer disease Syncope Surgical History H/O heart artery stent History of partial gastrectomy Family History Family History Father Myocardial infarction Social History Social History Household Members: None Household Members Other:: with friends, staying with friends Housing: Other Housing Other:: staying with a friend and financial assistance to find a hotel room Do you presently have visiting nurse or other home services: No Alcohol intake: former Patient Tobacco Use Status: Never used Tobacco Smoked in Last 30 Days: No Second Hand Smoke Exposure: Yes (friends he stays with smoke outside) Use of substances other than those prescribed or required for medical reasons: No Advance Directives: Yes Advance Directives on File: Yes Advance Directives Date on File: 01/29/22 service: No Current occupational status: unemployed Physical Exam ED Vital Signs: Vital Signs - 24 hr 05/29/22 01:21 05/29/22 01:42 Temperature 98.2 F 98.6 F Pulse Rate 65 68 Respiratory Rate 18 17 Blood Pressure 153/60 H 149/71 H Pulse Oximetry 99 100 Oxygen Delivery Method Room Air Room Air BMI result Body Mass Index 25.8 Appearance: Alert. Oriented X3. No acute distress. Eyes: PERRLA, No Nystagmus ENT: Pharynx normal. Oral Mucosa moist Neck: Normal inspection. Neck supple. CVS: Normal heart rate and rhythm. Pulses normal. Respiratory: No respiratory distress. Equal air entry bilateral, no wheezing/rales/rhonchi Abdomen: Soft and nontender. Bowel sounds are present, no mass palpable, no CVA tenderness Skin: Skin warm and dry. Normal skin color. Normal skin turgor. Extremities: No lower extremity edema. No calf tenderness Neuro: Oriented X 3. No motor deficit. No sensory deficit.No cerebellar signs , cranial nerves II-XII intact Medications Administered Discontinued Medications Generic Name Dose Route Start Last Admin Trade Name George PRN Reason Stop Dose Admin Sodium Chloride 1,000 mls @ 999 mls/hr 05/29/22 01:46 05/29/22 04:01 Ns IV 05/29/22 02:46 Infused .Q1H1M ONE Infusion Medical Decision Making Medical Decision Making [facility] Narrative: Patient is stable labs normal CPK no signs of muscle damage patient came here as he has been exhausted and is homeless, unable to sleep for last few days after coming here slept all night will discharge patient home advised to follow withsocial work Lab Data [facility] Lab Attestation statement: I reviewed the patient's lab results. 05/29/22 02:22 05/29/22 02:22 Labs: Lab Results 05/29/22 05/29/22 Range/Units 02:22 02:22 WBC 6.4 (4.8-10.8) X10*3/uL RBC 3.43 L (4.60-5.80) X10*6/uL Hgb 10.9 L (14.0-18.0) g/dl Hct 32.9 L (42.0-52.0) % MCV 95.9 (80.0-98.0) fL MCH 31.8 (27.0-33.0) pg MCHC 33.1 (31.0-36.0) g/dl RDW 13.7 (11.0-16.0) % Plt Count 308 (160-400) X10*3/uL MPV 9.0 L (9.4-12.4) fL Immature Gran % (Auto) 0.2 (0.0-0.4) % Neut % (Auto) 59.5 (45-73) % Lymph % (Auto) 24.7 (20-40) % [place] % (Auto) 10.3 (2-11) % Eos % (Auto) 4.4 H (0-4) % Baso % (Auto) 0.9 (0-2) % Lymph # (Auto) 1.6 (1.2-4.9) X10*3/uL [place] # (Auto) 0.7 (0.1-1.2) X10*3/uL Eos # (Auto) 0.3 (0.0-0.4) X10*3/uL Baso # (Auto) 0.1 (0.0-0.2) X10*3/uL Abs Immat Gran (auto) 0.01 (0.00-0.03) X10*3/uL Absolute Neuts (auto) 3.8 (2.0-8.3) x10*3/uL Absolute Nucleated RBC 0.000 (0.0-0.012) X10*3/uL Nucleated RBC % (auto) 0.0 (0.0-0.2) /100WBC Sodium 140 (135-145) mmol/L Potassium 5.2 H (3.3-5.1) mmol/L Chloride 109 H (96-108) mmol/L Carbon Dioxide 23 (22-29) mmol/L Anion Gap 13 (12-20) BUN 24 H (9-16) mg/dL Creatinine 0.83 (0.5-1.4) mg/dL Estim Creat Clear Calc 87.9 Estimated GFR > 60 Random Glucose 93 (60-115) mg/dL Calcium 9.1 D (8.4-10.2) mg/dL Total Bilirubin 0.7 (0.0-1.0) mg/dL AST 32 (5-37) U/L ALT 18 (0-40) U/L Alkaline Phosphatase 111 (39-117) U/L Total Creatine Kinase 144 (38-174) U/L Total Protein 6.1 L (6.5-8.0) g/dL Albumin 3.7 (3.5-5.0) g/dL Discharge Plan Discharge Clinical Impression: Musculoskeletal pain Patient Disposition: Home, Self-Care Instructions: Musculoskeletal Pain (ED) Additional Instructions: Drink plenty of fluids Rest and stay in retirement Prescriptions: No Action acetaminophen 500 mg tablet 2 tab PO TID PRN (Reason: pain) ibuprofen 200 mg Tablet 200 mg PO Q6H PRN (Reason: Pain) fluticasone propionate 50 mcg/actuation [place],Suspension 1 spray INTRANASAL DAILY PRN (Reason: Allergy Symptoms) Rx Instructions: administer into each nostril allopurinol 100 mg Tablet 100 mg PO DAILY@1700 losartan 25 mg Tablet 25 mg PO DAILY@0800 isosorbide mononitrate 30 mg Tablet Extended Release 24 Hr 30 mg PO DAILY@0800 metoprolol succinate 50 mg Tablet Extended Release 24 Hr 50 mg PO DAILY@0800 nitroglycerin 0.4 mg tablet, sublingual 1 tab sublingual TID PRN (Reason: Chest Pain) aspirin 81 mg Tablet 81 mg PO DAILY lorazepam [Ativan] 1 mg tablet 1 mg PO BEDTIME PRN (Reason: anxiety) Qty: 10 0RF
[2022-05-29 02:25] LABS: MANUAL DIFF FLAG NO
[2022-05-29 02:26] LABS: Basophils Absolute Auto 0.1 X10*3/uL (0.0-0.2); Basophils Percent Auto 0.9 % (0-2); Eosinophils Absolute Auto 0.3 X10*3/uL (0.0-0.4); Eosinophils Percent Auto 4.4 % (0-4); Hematocrit 32.9 % (42.0-52.0); Hemoglobin 10.9 g/dl (14.0-18.0); Imm Gran Abs Auto 0.01 X10*3/uL (0.00-0.03); Imm Gran Pct Auto 0.2 % (0.0-0.4); Lymphocytes Absolute Auto 1.6 X10*3/uL (1.2-4.9); Lymphocytes Percent Auto 24.7 % (20-40); Mean Corpuscular HGB Conc 33.1 g/dl (31.0-36.0); Mean Corpuscular Hemoglobin 31.8 pg (27.0-33.0); Mean Corpuscular Volume 95.9 fL (80.0-98.0); Monocytes Absolute Auto 0.7 X10*3/uL (0.1-1.2); Monocytes Percent Auto 10.3 % (2-11); Neutrophils Absolute Auto 3.8 x10*3/uL (2.0-8.3); Neutrophils Percent Auto 59.5 % (45-73); Platelet Count 308 X10*3/uL (160-400); Red Blood Count 3.43 X10*6/uL (4.60-5.80); Red Cell Distribution Width 13.7 % (11.0-16.0); White Blood Count 6.4 X10*3/uL (4.8-10.8)
[2022-05-29] MEDS: 0.9 % Sodium Chloride 1,000 ML 999 ML IV (02:37)
[2022-05-29 02:50] LABS: Alanine Aminotransferase 18 U/L (0-40); Albumin Level 3.7 g/dL (3.5-5.0); Alkaline Phosphatase 111 U/L (39-117); Anion Gap 13 (12-20); Aspartate Amino Transferase 32 U/L (5-37); Bilirubin Total 0.7 mg/dL (0.0-1.0); Blood Urea Nitrogen 24 mg/dL (9-16); Calcium 9.1 mg/dL (8.4-10.2); Carbon Dioxide 23 mmol/L (22-29); Chloride 109 mmol/L (96-108); Creatinine Clr Calc Pharmacy 87.9; Estimated Glomerular Filt Rate > 60; Glucose Random 93 mg/dL (60-115); Potassium 5.2 mmol/L (3.3-5.1); Sodium 140 mmol/L (135-145); Total Protein 6.1 g/dL (6.5-8.0)
[2022-05-29 06:29] VITALS: BP 129/74; PULSE 71; RESP 16; TEMP 36.7; O2SAT 98
== END 2022-05-29 06:30 | disposition home or self-care (01) ==
PROVIDERS: Emergency Provider Internal Medicine; PCP Internal Medicine
DX: M79.10 Myalgia, unspecified site (principal); Z59.00 Homelessness unspecified; I44.7 Left bundle-branch block, unspecified; Z79.82 Long term (current) use of aspirin; Z79.899 Other long term (current) drug therapy
CPT/HCPCS: 36415; 80053; 82550; 85025; 96360; 99284

== ENCOUNTER 2022-06-02 09:32 | Outpatient (REF) | payer MEDICARE, MEDICAID, SELFPAY ==
[2022-06-02 11:09] LABS: Anion Gap 11 (12-20); Blood Urea Nitrogen 28 mg/dL (9-16); C Reactive Protein 0.12 mg/dL (< or = 0.50); Calcium 9.3 mg/dL (8.4-10.2); Carbon Dioxide 27 mmol/L (22-29); Chloride 108 mmol/L (96-108); Estimated Glomerular Filt Rate > 60; Glucose Random 86 mg/dL (60-115); Potassium 4.7 mmol/L (3.3-5.1); Sodium 141 mmol/L (135-145)
== END 2022-06-02 09:33 | disposition home or self-care (01) ==
LOC: HO.10HDL 09:32
PROVIDERS: Visit Provider Internal Medicine
DX: I25.10 Atherosclerotic heart disease of native coronary artery without angina pectoris (principal)
CPT/HCPCS: 36415; 80048; 82550; 86140

== ENCOUNTER 2022-06-04 12:19 | Observation (INO) | payer MEDICARE, MEDICAID, SELFPAY ==
[2022-06-04] VITALS (8 sets, daily range): BP systolic 135–166; BP diastolic 68–87; PULSE 63–76; RESP 11–20; TEMP 35.9–36.9; O2SAT 96–100; BMI 26.6
--- NOTE | ~2022-06-04 | US_ITS ---
EXAMINATION: US VENOUS ULTRASOUND WITH DOPPLER LOWER EXTREMITY, BILATERAL CLINICAL INFORMATION: Swelling COMPARISON: None available. TECHNIQUE: Ultrasound of the deep veins is performed from the hip to the calf with compression sonography and color and pulse Doppler assessment. Spectral analysis with color-flow imaging is performed. FINDINGS: RIGHT: There is normal venous compression and respiratory variation and augmented flow. The visualized common femoral vein, superficial femoral vein, profunda femoral vein, popliteal vein, and the trifurcation region shows no evidence of deep venous thrombosis. There is no significant popliteal fossa cyst. LEFT: There is normal venous compression and respiratory variation and augmented flow. The visualized common femoral vein, superficial femoral vein, profunda femoral vein, popliteal vein, and the trifurcation region shows no evidence of deep venous thrombosis. There is no significant popliteal fossa cyst. Moderate cutaneous edema in the calf. If the patient's symptoms persist, followup ultrasound in 5 days 7 days might be of value to exclude proximal propagation from a non-visualized calf vein. US/US venous duplex LE BI IMPRESSION: No DVT demonstrated in the bilateral lower extremity. Moderate subcutaneous edema in the left calf.
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
--- NOTE | 2022-06-04 12:24 | ECG_ITS ---
Test Reason : chest pain Blood Pressure : / mmHG Vent. Rate : 074 BPM Atrial Rate : 074 BPM P-R Int : 160 ms QRS Dur : 128 ms QT Int : 426 ms P-R-T Axes : 062 001 115 degrees QTc Int : 472 ms Normal sinus rhythm Left bundle branch block Abnormal ECG When compared with ECG of 27-MAY-2022 01:39, No significant change was found Referred By: Generic ED Physician Electronically Signed By:Pio Bazan
[2022-06-04 13:15] LABS: MANUAL DIFF FLAG NO
[2022-06-04 13:16] LABS: Basophils Percent Auto 0.7 % (0-2); Eosinophils Absolute Auto 0.3 X10*3/uL (0.0-0.4); Eosinophils Percent Auto 5.5 % (0-4); Hematocrit 34.3 % (42.0-52.0); Hemoglobin 11.1 g/dl (14.0-18.0); Imm Gran Abs Auto 0.02 X10*3/uL (0.00-0.03); Imm Gran Pct Auto 0.3 % (0.0-0.4); Lymphocytes Absolute Auto 1.5 X10*3/uL (1.2-4.9); Lymphocytes Percent Auto 24.8 % (20-40); Mean Corpuscular HGB Conc 32.4 g/dl (31.0-36.0); Mean Corpuscular Hemoglobin 31.7 pg (27.0-33.0); Mean Platelet Volume 8.9 fL (9.4-12.4); Monocytes Absolute Auto 0.5 X10*3/uL (0.1-1.2); Monocytes Percent Auto 7.9 % (2-11); Neutrophils Absolute Auto 3.6 x10*3/uL (2.0-8.3); Neutrophils Percent Auto 60.8 % (45-73); Platelet Count 303 X10*3/uL (160-400); Red Cell Distribution Width 13.6 % (11.0-16.0); White Blood Count 5.9 X10*3/uL (4.8-10.8)
[2022-06-04 13:34] LABS: Alanine Aminotransferase 19 U/L (0-40); Albumin Level 3.9 g/dL (3.5-5.0); Alkaline Phosphatase 119 U/L (39-117); Anion Gap 12 (12-20); Aspartate Amino Transferase 27 U/L (5-37); Bilirubin Direct 0.2 mg/dL (0.0-0.5); Bilirubin Total 0.5 mg/dL (0.0-1.0); Blood Urea Nitrogen 23 mg/dL (9-16); Calcium 9.3 mg/dL (8.4-10.2); Carbon Dioxide 27 mmol/L (22-29); Chloride 109 mmol/L (96-108); Estimated Glomerular Filt Rate > 60; Glucose Random 132 mg/dL (60-115); Potassium 4.7 mmol/L (3.3-5.1); Sodium 143 mmol/L (135-145); Total Protein 5.9 g/dL (6.5-8.0)
[2022-06-04 13:40] LABS: Troponin-I High Sensitivity 8.5 ng/L (<3.5-35.0)
--- NOTE | 2022-06-04 13:44 | ED.CHESTPAIN ---
HPI - Chest Pain General Chief Complaint: Chest Pain <FRANCO Hernandez - Last Filed: 06/04/22 13:47> Stated Complaint: cp from walk in clinic <FRANCO Hernandez - Last Filed: 06/04/22 13:47> Time Seen by Provider: 06/04/22 15:59 <FRANCO Hernandez - Last Filed: 06/04/22 13:47> Source: patient and EMS <Lidia Delarosa MD - Last Filed: 06/04/22 20:18> Mode of arrival: EMS <Lidia Delarosa MD - Last Filed: 06/04/22 20:18> Limitations: no limitations <Lidia Delarosa MD - Last Filed: 06/04/22 20:18> History of Present Illness HPI narrative: Patient comes to the emergency room complaining of chest pain that started around noon. Patient states that he has been walking quite a bit. Also, patient states that earlier today while he was in a bus he had 3 syncopal episodes. Patient states that he was sitting, passed out 3 times, people around him woke him up. Also, patient states that 4 days ago, patient was in a park, passed out 6 x 1 time after another. Patient did hit his head, did not seek medical attention until today. Patient states at this time the chest pain subsided. Patient complaining of bilateral leg pain that has been present for 2 weeks. Patient states that his legs are slightly more swollen than usual. Pain is mostly muscular in the upper thighs, no calf pain. Patient denies shortness of breath. Off note, patient was admitted in March of 2022 for very similar circumstances. It was determined that his chest pain was noncardiac. Also, in January of 2022 patient had a cardiac cath, no obstructive disease present. Patient states that approximately 1 year ago, he had chest pain, went into cardiac arrest, all of his troponins were negative. <Lidia Delarosa MD - Last Filed: 06/04/22 20:18> Related Data Home Medications: Home Medications Medication Instructions Recorded Confirmed allopurinol 100 mg tablet 100 mg PO DAILY@1700 08/07/21 06/04/22 isosorbide mononitrate 30 mg 30 mg PO DAILY@0800 08/07/21 06/04/22 tablet,extended release 24 hr losartan 25 mg tablet 25 mg PO DAILY@0800 08/07/21 06/04/22 metoprolol succinate 50 mg 50 mg PO DAILY@0808/07/21 06/04/22 tablet,extended release 24 hr nitroglycerin 0.4 mg sublingual 1 tab sublingual TID PRN Chest Pain 08/07/21 06/04/22 tablet acetaminophen 500 mg tablet 2 tab PO TID PRN pain 02/16/22 06/04/22 fluticasone propionate 50 1 spray intranasal DAILY PRN 05/16/22 06/04/22 mcg/actuation nasal Allergy Symptoms spray,suspension ibuprofen 200 mg tablet 200 mg PO Q6H PRN Pain 05/16/22 06/04/22 aspirin 81 mg tablet,delayed 81 mg PO DAILY 06/04/22 06/04/22 release atorvastatin 80 mg tablet 80 mg PO DAILY 06/04/22 06/04/22 <FRANCO Hernandez - Last Filed: 06/04/22 13:47> Allergies/Adverse Reactions: Allergies Allergy/AdvReac Type Severity Reaction Status Date / Time polyethylene glycol Allergy Itching Verified 05/27/22 01:53 Iodinated Contrast Media AdvReac Severe PARALYSIS/N Verified 05/27/22 01:53 [CONTRAST, IV] UMBNESS <FRANCO Hernandez - Last Filed: 06/04/22 13:47> Review of Systems Review of Systems: Constitutional : No Weight loss, No Fever, No Chills, No Night Sweats, No Fatigue, No Malaise ENT/Mouth : No Hearing loss, No Ear Pain, No Nasal Congestion, No Sinus Pain, No Hoarseness, No sore throat, No Rhinorrhea, No Swallowing Difficulty Eyes: No Eye Pain, No Swelling, No Redness, No Foreign Body, No Discharge, No Vision Changes Cardiovascular : Complaining of chest pain that self subsided, No SOB, No Dyspnea on Exertion, No Orthopnea, No Edema, No Palpitations, complaining of multiple syncopal episodes Respiratory : No Cough, No Sputum, No Wheezing, No Smoke Exposure, No Dyspnea Gastrointestinal : No Nausea, No Vomiting, No Diarrhea, No Constipation, No abdominal Pain, No Hematochezia, No Melena Genitourinary : no irregular bleeding, No Dysuria, No Urinary Frequency, No Hematuria, No Urinary Incontinence, No Urgency, No Flank Pain, No Urinary Flow Changes, No Hesitancy Musculoskeletal : No joint pain, No Myalgias, No Joint Swelling Skin : No Skin Lesions, No rash Neuro : No Weakness, No Numbness, No Paresthesias, complaining of multiple episodes of loss of consciousness, no headache Psych : No Anxiety/Panic, No Depression, No SI/HI/AH/VH, No Social Issues, Heme/Lymph: No Bruising, No Bleeding,No Lymphadenopathy Endocrine : No Polyuria, No Polydipsia, No Temperature Intolerance <Lidia Delarosa MD - Last Filed: 06/04/22 20:18> [facility] Past Medical History Medical History: Medical History Airway polyps Atypical chest pain Chest pain Coronary artery disease Gout Hypertension Incarcerated left inguinal hernia Ischemic heart disease due to coronary artery obstruction Left bundle branch block Left bundle branch block NICM (nonischemic cardiomyopathy) No known health problems Peptic ulcer disease Syncope <FRANCO Hernandez - Last Filed: 06/04/22 13:47> Surgical History: Surgical History H/O heart artery stent History of partial gastrectomy <FRANCO Hernandez - Last Filed: 06/04/22 13:47> Family History Family History: Family History Father Myocardial infarction <FRANCO Hernandez - Last Filed: 06/04/22 13:47> Social History Social History: Social History Household Members: None Household Members Other:: with friends, staying with friends Housing: Other Housing Other:: staying with a friend and financial assistance to find a hotel room Do you presently have visiting nurse or other home services: No Alcohol intake: former Patient Tobacco Use Status: Never used Tobacco Second Hand Smoke Exposure: Yes (friends he stays with smoke outside) Advance Directives: Yes Advance Directives on File: Yes Advance Directives Date on File: 01/29/22 service: No Current occupational status: unemployed <FRANCO Hernandez - Last Filed: 06/04/22 13:47> Physical Exam Vital Signs: Vital Signs: Last Vital Signs Temp 97.7 F 06/04/22 19:57 Pulse 70 06/04/22 19:57 Resp 11 L 06/04/22 19:57 BP 146/70 H 06/04/22 19:57 Pulse Ox 99 06/04/22 19:57 O2 Del Method Room Air 06/04/22 19:57 BMI result Body Mass Index 26.6 <FRANCO Hernandez - Last Filed: 06/04/22 13:47> Vital Signs: Last Vital Signs Temp 97.7 F 06/04/22 19:57 Pulse 70 06/04/22 19:57 Resp 11 L 06/04/22 19:57 BP 146/70 H 06/04/22 19:57 Pulse Ox 99 06/04/22 19:57 O2 Del Method Room Air 06/04/22 19:57 BMI result Body Mass Index 26.6 <Lidia Delarosa MD - Last Filed: 06/04/22 20:18> Course Course Course Narrative: RME - 67 yo male with history of LBBB, coronary disease status post stenting LAD in 01/19 repeat cardiac catheterization in 02/19 was negative, nonischemic cardiomyopathy, hx recent rhabdomyolysis who presents to the ER for evaluation of nonradiating, intermittnet left sided chest pains for the last 2 hours that started when he was walking. He is homeless and has been walking a lot. He also reports significant muscle pains in his legs similar to his recent rhabdo presentation but worse. History of frequent visits for chest pain. Plan: EKG, CXR, labs. <FRANCO Hernandez - Last Filed: 06/04/22 13:47> Medical Decision Making Medical Decision Making MDM Narrative: -1st troponin is negative. Patient states that he was admitted to [facility] 1 year ago after cardiac arrest and his troponins were negative -CT scan for pulmonary embolism in March of 2022 was negative. D-dimer negative. No tachycardia, no blood pressure changes, no oxygen desaturations -CT scan of the head pending. Patient denies being on blood thinners. My interpretation of CT scan of the head: Chronic atrophy, no intracranial bleed -I discussed the patient with Dr. Cottrell, patient will be admitted, likely for observation. All of his workup today is essentially negative -EKG interpreted by me: Sinus rhythm, heart rate 74, no ST segment depression elevation, left bundle branch block previously seen on EKGs. QTC 472 <Lidia Delarosa MD - Last Filed: 06/04/22 20:18> Differential Diagnosis Differential Diagnoses: The differential diagnosis associated with the presentation includes (Cardiac arrhythmias, vasovagal syncope, orthostatic hypotension) <Lidia Delarosa MD - Last Filed: 06/04/22 20:18> Admission/Observation Consideration of admission/observation: Escalation of care including admission/observation considered <Lidia Delarosa MD - Last Filed: 06/04/22 20:18> Consult Healthcare Provider Management of the patient was discussed with: Hospitalist <Lidia Delarosa MD - Last Filed: 06/04/22 20:18> Lab Data MDM Lab Attestation statement: I reviewed the patient's lab results. <Lidia Delarosa MD - Last Filed: 06/04/22 20:18> Result Diagrams: 06/04/22 13:02 06/04/22 13:02 <FRANCO Hernandez - Last Filed: 06/04/22 13:47> Labs: Lab Results 06/04/22 06/04/22 06/04/22 Range/Units 13:02 13:02 13:02 WBC 5.9 (4.8-10.8) X10*3/uL RBC 3.50 L (4.60-5.80) X10*6/uL Hgb 11.1 L (14.0-18.0) g/dl Hct 34.3 L (42.0-52.0) % MCV 98.0 (80.0-98.0) fL MCH 31.7 (27.0-33.0) pg MCHC 32.4 (31.0-36.0) g/dl RDW 13.6 (11.0-16.0) % Plt Count 303 (160-400) X10*3/uL MPV 8.9 L (9.4-12.4) fL Immature Gran % (Auto) 0.3 (0.0-0.4) % Neut % (Auto) 60.8 (45-73) % Lymph % (Auto) 24.8 (20-40) % [place] % (Auto) 7.9 (2-11) % Eos % (Auto) 5.5 H (0-4) % Baso % (Auto) 0.7 (0-2) % Lymph # (Auto) 1.5 (1.2-4.9) X10*3/uL [place] # (Auto) 0.5 (0.1-1.2) X10*3/uL Eos # (Auto) 0.3 (0.0-0.4) X10*3/uL Baso # (Auto) 0.0 (0.0-0.2) X10*3/uL Abs Immat Gran (auto) 0.02 (0.00-0.03) X10*3/uL Absolute Neuts (auto) 3.6 (2.0-8.3) x10*3/uL Absolute Nucleated RBC 0.000 (0.0-0.012) X10*3/uL Nucleated RBC % (auto) 0.0 (0.0-0.2) /100WBC D-Dimer High Sensitivty NG/ML Sodium 143 (135-145) mmol/L Potassium 4.7 (3.3-5.1) mmol/L Chloride 109 H (96-108) mmol/L Carbon Dioxide 27 (22-29) mmol/L Anion Gap 12 (12-20) BUN 23 H (9-16) mg/dL Creatinine 0.93 (0.5-1.4) mg/dL Estim Creat Clear Calc TNP Estimated GFR > 60 Random Glucose 132 H (60-115) mg/dL Calcium 9.3 (8.4-10.2) mg/dL Magnesium 2.0 (1.6-2.6) mg/dL Total Bilirubin 0.5 (0.0-1.0) mg/dL Direct Bilirubin 0.2 (0.0-0.5) mg/dL AST 27 (5-37) U/L ALT 19 (0-40) U/L Alkaline Phosphatase 119 H (39-117) U/L Total Creatine Kinase 179 H (38-174) U/L Troponin I High Sens 8.5 (<3.5-35.0) ng/L B-Natriuretic Peptide (<100) pg/mL Total Protein 5.9 L (6.5-8.0) g/dL Albumin 3.9 (3.5-5.0) g/dL Urine Color Urine Appearance Urine pH (5.0-9.0) Ur Specific [place] (1.005-1.025) Urine Protein (Neg-Trace) mg/dL Urine Glucose (UA) (Negative) mg/dL Urine Ketones (Negative) mg/dL Urine Blood (Negative) Urine Nitrite (Negative) Ur Leukocyte Esterase (Negative) Urine Opiates Screen (Not Detect) Urine Fentanyl Screen (Not Detect) Ur Barbiturates Screen (Not Detect) Ur Phencyclidine Scrn (Not Detect) Ur Amphetamines Screen (Not Detect) U Benzodiazepines Scrn (Not Detect) Urine Cocaine Screen (Not Detect) U Marijuana (THC) Screen (Not Detect) COVID-19 (JAMAAL) (Negative) COVID-19 Clin Com 06/04/22 06/04/22 06/04/22 Range/Units 13:02 17:17 17:17 WBC (4.8-10.8) X10*3/uL RBC (4.60-5.80) X10*6/uL Hgb (14.0-18.0) g/dl Hct (42.0-52.0) % MCV (80.0-98.0) fL MCH (27.0-33.0) pg MCHC (31.0-36.0) g/dl RDW (11.0-16.0) % Plt Count (160-400) X10*3/uL MPV (9.4-12.4) fL Immature Gran % (Auto) (0.0-0.4) % Neut % (Auto) (45-73) % Lymph % (Auto) (20-40) % [place] % (Auto) (2-11) % Eos % (Auto) (0-4) % Baso % (Auto) (0-2) % Lymph # (Auto) (1.2-4.9) X10*3/uL [place] # (Auto) (0.1-1.2) X10*3/uL Eos # (Auto) (0.0-0.4) X10*3/uL Baso # (Auto) (0.0-0.2) X10*3/uL Abs Immat Gran (auto) (0.00-0.03) X10*3/uL Absolute Neuts (auto) (2.0-8.3) x10*3/uL Absolute Nucleated RBC (0.0-0.012) X10*3/uL Nucleated RBC % (auto) (0.0-0.2) /100WBC D-Dimer High Sensitivty 229 NG/ML Sodium (135-145) mmol/L Potassium (3.3-5.1) mmol/L Chloride (96-108) mmol/L Carbon Dioxide (22-29) mmol/L Anion Gap (12-20) BUN (9-16) mg/dL Creatinine (0.5-1.4) mg/dL Estim Creat Clear Calc Estimated GFR Random Glucose (60-115) mg/dL Calcium (8.4-10.2) mg/dL Magnesium (1.6-2.6) mg/dL Total Bilirubin (0.0-1.0) mg/dL Direct Bilirubin (0.0-0.5) mg/dL AST (5-37) U/L ALT (0-40) U/L Alkaline Phosphatase (39-117) U/L Total Creatine Kinase (38-174) U/L Troponin I High Sens 6.8 (<3.5-35.0) ng/L B-Natriuretic Peptide 30 (<100) pg/mL Total Protein (6.5-8.0) g/dL Albumin (3.5-5.0) g/dL Urine Color Urine Appearance Urine pH (5.0-9.0) Ur Specific [place] (1.005-1.025) Urine Protein (Neg-Trace) mg/dL Urine Glucose (UA) (Negative) mg/dL Urine Ketones (Negative) mg/dL Urine Blood (Negative) Urine Nitrite (Negative) Ur Leukocyte Esterase (Negative) Urine Opiates Screen (Not Detect) Urine Fentanyl Screen (Not Detect) Ur Barbiturates Screen (Not Detect) Ur Phencyclidine Scrn (Not Detect) Ur Amphetamines Screen (Not Detect) U Benzodiazepines Scrn (Not Detect) Urine Cocaine Screen (Not Detect) U Marijuana (THC) Screen (Not Detect) COVID-19 (JAMAAL) (Negative) COVID-19 Clin Com 06/04/22 06/04/22 06/04/22 Range/Units 19:23 19:28 19:28 WBC (4.8-10.8) X10*3/uL RBC (4.60-5.80) X10*6/uL Hgb (14.0-18.0) g/dl Hct (42.0-52.0) % MCV (80.0-98.0) fL MCH (27.0-33.0) pg MCHC (31.0-36.0) g/dl RDW (11.0-16.0) % Plt Count (160-400) X10*3/uL MPV (9.4-12.4) fL Immature Gran % (Auto) (0.0-0.4) % Neut % (Auto) (45-73) % Lymph % (Auto) (20-40) % [place] % (Auto) (2-11) % Eos % (Auto) (0-4) % Baso % (Auto) (0-2) % Lymph # (Auto) (1.2-4.9) X10*3/uL [place] # (Auto) (0.1-1.2) X10*3/uL Eos # (Auto) (0.0-0.4) X10*3/uL Baso # (Auto) (0.0-0.2) X10*3/uL Abs Immat Gran (auto) (0.00-0.03) X10*3/uL Absolute Neuts (auto) (2.0-8.3) x10*3/uL Absolute Nucleated RBC (0.0-0.012) X10*3/uL Nucleated RBC % (auto) (0.0-0.2) /100WBC D-Dimer High Sensitivty NG/ML Sodium (135-145) mmol/L Potassium (3.3-5.1) mmol/L Chloride (96-108) mmol/L Carbon Dioxide (22-29) mmol/L Anion Gap (12-20) BUN (9-16) mg/dL Creatinine (0.5-1.4) mg/dL Estim Creat Clear Calc Estimated GFR Random Glucose (60-115) mg/dL Calcium (8.4-10.2) mg/dL Magnesium (1.6-2.6) mg/dL Total Bilirubin (0.0-1.0) mg/dL Direct Bilirubin (0.0-0.5) mg/dL AST (5-37) U/L ALT (0-40) U/L Alkaline Phosphatase (39-117) U/L Total Creatine Kinase (38-174) U/L Troponin I High Sens (<3.5-35.0) ng/L B-Natriuretic Peptide (<100) pg/mL Total Protein (6.5-8.0) g/dL Albumin (3.5-5.0) g/dL Urine Color Yellow Urine Appearance Clear Urine pH 7.0 (5.0-9.0) Ur Specific [place] 1.010 (1.005-1.025) Urine Protein Negative (Neg-Trace) mg/dL Urine Glucose (UA) Negative (Negative) mg/dL Urine Ketones Negative (Negative) mg/dL Urine Blood Negative (Negative) Urine Nitrite Negative (Negative) Ur Leukocyte Esterase Negative (Negative) Urine Opiates Screen Not Detected (Not Detect) Urine Fentanyl Screen Not Detected (Not Detect) Ur Barbiturates Screen Not Detected (Not Detect) Ur Phencyclidine Scrn Not Detected (Not Detect) Ur Amphetamines Screen Not Detected (Not Detect) U Benzodiazepines Scrn Not Detected (Not Detect) Urine Cocaine Screen Not Detected (Not Detect) U Marijuana (THC) Screen Not Detected (Not Detect) COVID-19 (JAMAAL) Negative (Negative) COVID-19 Clin Com See Note <FRANCO Hernandez - Last Filed: 06/04/22 13:47> Lab Results 06/04/22 06/04/22 06/04/22 Range/Units 13:02 13:02 13:02 WBC 5.9 (4.8-10.8) X10*3/uL RBC 3.50 L (4.60-5.80) X10*6/uL Hgb 11.1 L (14.0-18.0) g/dl Hct 34.3 L (42.0-52.0) % MCV 98.0 (80.0-98.0) fL MCH 31.7 (27.0-33.0) pg MCHC 32.4 (31.0-36.0) g/dl RDW 13.6 (11.0-16.0) % Plt Count 303 (160-400) X10*3/uL MPV 8.9 L (9.4-12.4) fL Immature Gran % (Auto) 0.3 (0.0-0.4) % Neut % (Auto) 60.8 (45-73) % Lymph % (Auto) 24.8 (20-40) % [place] % (Auto) 7.9 (2-11) % Eos % (Auto) 5.5 H (0-4) % Baso % (Auto) 0.7 (0-2) % Lymph # (Auto) 1.5 (1.2-4.9) X10*3/uL [place] # (Auto) 0.5 (0.1-1.2) X10*3/uL Eos # (Auto) 0.3 (0.0-0.4) X10*3/uL Baso # (Auto) 0.0 (0.0-0.2) X10*3/uL Abs Immat Gran (auto) 0.02 (0.00-0.03) X10*3/uL Absolute Neuts (auto) 3.6 (2.0-8.3) x10*3/uL Absolute Nucleated RBC 0.000 (0.0-0.012) X10*3/uL Nucleated RBC % (auto) 0.0 (0.0-0.2) /100WBC D-Dimer High Sensitivty NG/ML Sodium 143 (135-145) mmol/L Potassium 4.7 (3.3-5.1) mmol/L Chloride 109 H (96-108) mmol/L Carbon Dioxide 27 (22-29) mmol/L Anion Gap 12 (12-20) BUN 23 H (9-16) mg/dL Creatinine 0.93 (0.5-1.4) mg/dL Estim Creat Clear Calc TNP Estimated GFR > 60 Random Glucose 132 H (60-115) mg/dL Calcium 9.3 (8.4-10.2) mg/dL Magnesium 2.0 (1.6-2.6) mg/dL Total Bilirubin 0.5 (0.0-1.0) mg/dL Direct Bilirubin 0.2 (0.0-0.5) mg/dL AST 27 (5-37) U/L ALT 19 (0-40) U/L Alkaline Phosphatase 119 H (39-117) U/L Total Creatine Kinase 179 H (38-174) U/L Troponin I High Sens 8.5 (<3.5-35.0) ng/L B-Natriuretic Peptide (<100) pg/mL Total Protein 5.9 L (6.5-8.0) g/dL Albumin 3.9 (3.5-5.0) g/dL Urine Color Urine Appearance Urine pH (5.0-9.0) Ur Specific [place] (1.005-1.025) Urine Protein (Neg-Trace) mg/dL Urine Glucose (UA) (Negative) mg/dL Urine Ketones (Negative) mg/dL Urine Blood (Negative) Urine Nitrite (Negative) Ur Leukocyte Esterase (Negative) Urine Opiates Screen (Not Detect) Urine Fentanyl Screen (Not Detect) Ur Barbiturates Screen (Not Detect) Ur Phencyclidine Scrn (Not Detect) Ur Amphetamines Screen (Not Detect) U Benzodiazepines Scrn (Not Detect) Urine Cocaine Screen (Not Detect) U Marijuana (THC) Screen (Not Detect) COVID-19 (JAMAAL) (Negative) COVID-19 Clin Com 06/04/22 06/04/22 06/04/22 Range/Units 13:02 17:17 17:17 WBC (4.8-10.8) X10*3/uL RBC (4.60-5.80) X10*6/uL Hgb (14.0-18.0) g/dl Hct (42.0-52.0) % MCV (80.0-98.0) fL MCH (27.0-33.0) pg MCHC (31.0-36.0) g/dl RDW (11.0-16.0) % Plt Count (160-400) X10*3/uL MPV (9.4-12.4) fL Immature Gran % (Auto) (0.0-0.4) % Neut % (Auto) (45-73) % Lymph % (Auto) (20-40) % [place] % (Auto) (2-11) % Eos % (Auto) (0-4) % Baso % (Auto) (0-2) % Lymph # (Auto) (1.2-4.9) X10*3/uL [place] # (Auto) (0.1-1.2) X10*3/uL Eos # (Auto) (0.0-0.4) X10*3/uL Baso # (Auto) (0.0-0.2) X10*3/uL Abs Immat Gran (auto) (0.00-0.03) X10*3/uL Absolute Neuts (auto) (2.0-8.3) x10*3/uL Absolute Nucleated RBC (0.0-0.012) X10*3/uL Nucleated RBC % (auto) (0.0-0.2) /100WBC D-Dimer High Sensitivty 229 NG/ML Sodium (135-145) mmol/L Potassium (3.3-5.1) mmol/L Chloride (96-108) mmol/L Carbon Dioxide (22-29) mmol/L Anion Gap (12-20) BUN (9-16) mg/dL Creatinine (0.5-1.4) mg/dL Estim Creat Clear Calc Estimated GFR Random Glucose (60-115) mg/dL Calcium (8.4-10.2) mg/dL Magnesium (1.6-2.6) mg/dL Total Bilirubin (0.0-1.0) mg/dL Direct Bilirubin (0.0-0.5) mg/dL AST (5-37) U/L ALT (0-40) U/L Alkaline Phosphatase (39-117) U/L Total Creatine Kinase (38-174) U/L Troponin I High Sens 6.8 (<3.5-35.0) ng/L B-Natriuretic Peptide 30 (<100) pg/mL Total Protein (6.5-8.0) g/dL Albumin (3.5-5.0) g/dL Urine Color Urine Appearance Urine pH (5.0-9.0) Ur Specific [place] (1.005-1.025) Urine Protein (Neg-Trace) mg/dL Urine Glucose (UA) (Negative) mg/dL Urine Ketones (Negative) mg/dL Urine Blood (Negative) Urine Nitrite (Negative) Ur Leukocyte Esterase (Negative) Urine Opiates Screen (Not Detect) Urine Fentanyl Screen (Not Detect) Ur Barbiturates Screen (Not Detect) Ur Phencyclidine Scrn (Not Detect) Ur Amphetamines Screen (Not Detect) U Benzodiazepines Scrn (Not Detect) Urine Cocaine Screen (Not Detect) U Marijuana (THC) Screen (Not Detect) COVID-19 (JAMAAL) (Negative) COVID-19 Clin Com 06/04/22 06/04/22 06/04/22 Range/Units 19:23 19:28 19:28 WBC (4.8-10.8) X10*3/uL RBC (4.60-5.80) X10*6/uL Hgb (14.0-18.0) g/dl Hct (42.0-52.0) % MCV (80.0-98.0) fL MCH (27.0-33.0) pg MCHC (31.0-36.0) g/dl RDW (11.0-16.0) % Plt Count (160-400) X10*3/uL MPV (9.4-12.4) fL Immature Gran % (Auto) (0.0-0.4) % Neut % (Auto) (45-73) % Lymph % (Auto) (20-40) % [place] % (Auto) (2-11) % Eos % (Auto) (0-4) % Baso % (Auto) (0-2) % Lymph # (Auto) (1.2-4.9) X10*3/uL [place] # (Auto) (0.1-1.2) X10*3/uL Eos # (Auto) (0.0-0.4) X10*3/uL Baso # (Auto) (0.0-0.2) X10*3/uL Abs Immat Gran (auto) (0.00-0.03) X10*3/uL Absolute Neuts (auto) (2.0-8.3) x10*3/uL Absolute Nucleated RBC (0.0-0.012) X10*3/uL Nucleated RBC % (auto) (0.0-0.2) /100WBC D-Dimer High Sensitivty NG/ML Sodium (135-145) mmol/L Potassium (3.3-5.1) mmol/L Chloride (96-108) mmol/L Carbon Dioxide (22-29) mmol/L Anion Gap (12-20) BUN (9-16) mg/dL Creatinine (0.5-1.4) mg/dL Estim Creat Clear Calc Estimated GFR Random Glucose (60-115) mg/dL Calcium (8.4-10.2) mg/dL Magnesium (1.6-2.6) mg/dL Total Bilirubin (0.0-1.0) mg/dL Direct Bilirubin (0.0-0.5) mg/dL AST (5-37) U/L ALT (0-40) U/L Alkaline Phosphatase (39-117) U/L Total Creatine Kinase (38-174) U/L Troponin I High Sens (<3.5-35.0) ng/L B-Natriuretic Peptide (<100) pg/mL Total Protein (6.5-8.0) g/dL Albumin (3.5-5.0) g/dL Urine Color Yellow Urine Appearance Clear Urine pH 7.0 (5.0-9.0) Ur Specific [place] 1.010 (1.005-1.025) Urine Protein Negative (Neg-Trace) mg/dL Urine Glucose (UA) Negative (Negative) mg/dL Urine Ketones Negative (Negative) mg/dL Urine Blood Negative (Negative) Urine Nitrite Negative (Negative) Ur Leukocyte Esterase Negative (Negative) Urine Opiates Screen Not Detected (Not Detect) Urine Fentanyl Screen Not Detected (Not Detect) Ur Barbiturates Screen Not Detected (Not Detect) Ur Phencyclidine Scrn Not Detected (Not Detect) Ur Amphetamines Screen Not Detected (Not Detect) U Benzodiazepines Scrn Not Detected (Not Detect) Urine Cocaine Screen Not Detected (Not Detect) U Marijuana (THC) Screen Not Detected (Not Detect) COVID-19 (JAMAAL) Negative (Negative) COVID-19 Clin Com See Note <Lidia Delarosa MD - Last Filed: 06/04/22 20:18> Radiology Impression Discussion of test interpretation with radiology: I have reviewed the radiologist's reading. <Lidia Delarosa MD - Last Filed: 06/04/22 20:18> Radiologist Impression: FINDINGS: No acute osseous or soft tissue abnormality. The mastoids are clear. Mild scattered ethmoid sinus mucosal thickening. Tiny osteoma within a right anterior ethmoid air cell. There is no evidence of acute intracranial hemorrhage or territorial infarction. No abnormal mass effect or midline shift is seen. Glaser to white matter differentiation is well preserved. No extra-axial fluid collections are identified. No hydrocephalus. Proportional prominence of the ventricles and sulcal spaces is consistent with mild to moderate volume loss. Patchy periventricular and deep white matter hypoattenuation is consistent with mild small vessel ischemic changes. ? CT/CT head/brain wo IV con IMPRESSION: ? No acute intracranial abnormality including hemorrhage, mass effect, hydrocephalus, or acute territorial edematous infarction. <Lidia Delarosa MD - Last Filed: 06/04/22 20:18> Critical Care Time Critical Care Time Critical Care Time: Yes <Lidia Delarosa MD - Last Filed: 06/04/22 20:18> Total Critical Care Time: 30 <Lidia Delarosa MD - Last Filed: 06/04/22 20:18> Attestation: I have personally provided critical care time. Time includes review of lab data, radiology results, discussion with consultants, and monitoring for potential decompensation. Intervention performed as documented. <Lidia Delarosa MD - Last Filed: 06/04/22 20:18> Discharge Plan Discharge Clinical Impression: Syncope <FRANCO Hernandez - Last Filed: 06/04/22 13:47> Patient Disposition: Admitted As Inpatient <FRANCO Hernandez - Last Filed: 06/04/22 13:47>
[2022-06-04 16:56] LABS: B Type Natriuretic Peptide 30 pg/mL (<100)
[2022-06-04 17:37] LABS: D Dimer High Sensitivity 229 NG/ML
[2022-06-04 17:51] LABS: Troponin-I High Sensitivity 6.8 ng/L (<3.5-35.0)
--- NOTE | 2022-06-04 19:23 | PHA.MEDREC ---
Pharmacy Consult ? Medication Reconciliation Pharmacy has completed the medication reconciliation. Pt with list at bedside
[2022-06-04 19:40] LABS: Appearance Urine Clear; Color Urine Yellow; Glucose Urine UA Negative (Negative); Leukocyte Esterase Urine Negative (Negative); Nitrite Urine Negative (Negative); Urine Blood Negative (Negative); Urine Ketones Negative (Negative); Urine Protein Negative (Neg-Trace)
[2022-06-04 19:47] LABS: Amphetamine Screen Urine Not Detected (Not Detect); Barbiturates, Urine Not Detected (Not Detect); Benzodiazepines Screen Urine Not Detected (Not Detect); Cannabinoid Screen Urine Not Detected (Not Detect); Cocaine Screen Urine Not Detected (Not Detect); Fentanyl, urine Not Detected (Not Detect); Opiate Screen Urine Not Detected (Not Detect); Phencyclidine Screen Urine Not Detected (Not Detect)
[2022-06-04 19:59] LABS: COVID-19 Test Negative (Negative); IDNOW Serial# 08D9AD1C
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
[2022-06-04 21:54] LABS: C Reactive Protein 0.15 mg/dL (< or = 0.50)
[2022-06-04] MEDS: Enoxaparin Sodium 40 MG/0.4 ML SYRINGE SUBCUT (22:31)
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
[2022-06-04] MEDS: 0.9 % Sodium Chloride Flush 3 ML SYRINGE IVFLUSH (23:01)
[2022-06-05] VITALS (9 sets, daily range): BP systolic 111–157; BP diastolic 61–80; PULSE 69–73; RESP 14–19; TEMP 36.5–36.9; O2SAT 98–99
--- NOTE | 2022-06-05 | ECG_ITS ---
Test Reason : chest pain Blood Pressure : / mmHG Vent. Rate : 067 BPM Atrial Rate : 067 BPM P-R Int : 166 ms QRS Dur : 124 ms QT Int : 428 ms P-R-T Axes : 052 017 190 degrees QTc Int : 452 ms Normal sinus rhythm Left bundle branch block Abnormal ECG When compared with ECG of 04-JUN-2022 12:30, Nonspecific T wave abnormality, worse in Inferior leads Referred By: Gela Penaloza Electronically Signed By:Pio Bazan
[2022-06-05] MEDS: Acetaminophen 325 MG TABLET 650 MG PO ×2 (02:53→22:48)
[2022-06-05] MEDS: Lidocaine 4 % Patch ADH..PATCH 2 PATCH TRANSDERMA (08:16)
[2022-06-05] MEDS: Aspirin Enteric Coated 81 MG TABLET.DR PO (08:17)
[2022-06-05] MEDS: Losartan Potassium 25 MG TABLET PO (08:17)
[2022-06-05] MEDS: Isosorbide Mononitrate 30 MG TAB.ER.24H PO (08:17)
[2022-06-05] MEDS: 0.9 % Sodium Chloride Flush 3 ML SYRINGE IVFLUSH ×2 (08:17→16:35)
--- NOTE | 2022-06-05 15:17 | MHC.CM.PN ---
per opunds pt will need str when dcd referrals made pt not ready at [facility] time met with sarkis solis from [place] police dept elder affair officer [phone] who was updatyed on pts dispositon plan at this time he asks that he be notified when pt is dcd [phone]
[2022-06-05] MEDS: allopurinoL 100 MG TABLET PO (16:35)
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
[2022-06-05] MEDS: Enoxaparin Sodium 40 MG/0.4 ML SYRINGE SUBCUT (22:48)
--- NOTE | 2022-06-05 23:05 | PC.NURSE ---
Pt reported non radiating sternal chest pain, denies short of breath, no nausea, no diaphoresis. Blood pressure 156/74 and a heart rate of [address] Penaloza notified. EKG taken and troponin ordered; no new meds ordered. Pt resting comfortably, all questions answered and pt is aware of plan of care. Will continue to monitor.
[2022-06-06] MEDS: 0.9 % Sodium Chloride Flush 3 ML SYRINGE IVFLUSH ×3 (00:01→16:16)
[2022-06-06 00:42] LABS: Troponin-I High Sensitivity 7.4 ng/L (<3.5-35.0)
[2022-06-06 03:07] VITALS: BP 127/67; PULSE 67; RESP 20; TEMP 36.7; O2SAT 97
[2022-06-06] MEDS: Acetaminophen 325 MG TABLET 650 MG PO ×2 (05:06→10:54)
[2022-06-06 07:31] VITALS: BP 142/79; PULSE 67; RESP 16; TEMP 36.7; O2SAT 96
[2022-06-06] MEDS: Lidocaine 4 % Patch ADH..PATCH 2 PATCH TRANSDERMA (10:33)
[2022-06-06] MEDS: Metoprolol Succinate ER 50 MG TAB.ER.24H PO (10:34)
[2022-06-06] MEDS: Isosorbide Mononitrate 30 MG TAB.ER.24H PO (10:34)
[2022-06-06] MEDS: Losartan Potassium 25 MG TABLET PO (10:34)
[2022-06-06] MEDS: Aspirin Enteric Coated 81 MG TABLET.DR PO (10:34)
[2022-06-06 11:41] VITALS: BP 145/70; PULSE 78; RESP 16; TEMP 36.8; O2SAT 97
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
--- NOTE | 2022-06-06 15:26 | MHC.CM.PN ---
EMR REVIEWED, PT RECOMMENDING STR ON 06/05 HOWEVER PT IS HOMELESS AND NOT LIKELY TO FIND A SNF WHO WILL TAKE PT HE HAS NO PLACE TO GO AFTER D/C, CM MET W/PT TO LET PT KNOW IT IS NOT LIKELY WE WILL FIND PLACEMENT AND PT MAY NEED HALFWAY OR TO WORK ON AN ALTERNATE PLACE TO STAY, PT AWARE BROAD REFERRAL SENT [place]AR [place] AND DECLINES TO HAVE CM EXPANDED TO [facility], PT POLITE AND APPRECIATIVE OF CM ASSISTANCE, PT REPORTS HE WILL WORK ON OTHER OPTIONS. CM WILL CONT TO FOLLOW.
[2022-06-06 15:29] VITALS: BP 123/67; PULSE 65; RESP 18; TEMP 36.6; O2SAT 97
[2022-06-06] MEDS: allopurinoL 100 MG TABLET PO (16:17)
[2022-06-06] MEDS: Ibuprofen 200 MG TABLET PO (16:32)
[2022-06-06 19:22] VITALS: BP 128/77; PULSE 66; RESP 18; TEMP 37; O2SAT 98
[2022-06-06] MEDS: Enoxaparin Sodium 40 MG/0.4 ML SYRINGE SUBCUT (20:33)
[2022-06-06 23:37] VITALS: BP 136/62; PULSE 63; RESP 16; TEMP 36.6; O2SAT 97
[2022-06-07] MEDS: 0.9 % Sodium Chloride Flush 3 ML SYRINGE IVFLUSH ×4 (00:35→21:34)
[2022-06-07] MEDS: Ibuprofen 200 MG TABLET PO ×3 (02:24→21:33)
[2022-06-07 03:14] VITALS: BP 126/58; PULSE 65; RESP 18; TEMP 36.3; O2SAT 97
[2022-06-07 08:00] VITALS: BP 149/71; PULSE 69; RESP 20; TEMP 36.1; O2SAT 97
[2022-06-07] MEDS: Lidocaine 4 % Patch ADH..PATCH 2 PATCH TRANSDERMA (08:58)
[2022-06-07] MEDS: Aspirin Enteric Coated 81 MG TABLET.DR PO (09:00)
[2022-06-07] MEDS: Isosorbide Mononitrate 30 MG TAB.ER.24H PO (09:00)
[2022-06-07] MEDS: Losartan Potassium 25 MG TABLET PO (09:00)
[2022-06-07] MEDS: Metoprolol Succinate ER 50 MG TAB.ER.24H PO (09:01)
[2022-06-07] MEDS: Docusate Sodium 100 MG CAPSULE PO ×2 (10:59→21:33)
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
[2022-06-07 12:00] VITALS: BP 127/75; PULSE 70; RESP 20; TEMP 36.4; O2SAT 100
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
[2022-06-07] MEDS: allopurinoL 100 MG TABLET PO (15:05)
[2022-06-07 15:55] VITALS: BP 130/65; PULSE 69; RESP 20; TEMP 36.6; O2SAT 98
[2022-06-07 20:00] VITALS: BP 160/72; PULSE 70; RESP 18; TEMP 36.6; O2SAT 97
[2022-06-07] MEDS: Sennosides 8.6 MG TABLET PO (21:33)
[2022-06-07] MEDS: Enoxaparin Sodium 40 MG/0.4 ML SYRINGE SUBCUT (21:34)
[2022-06-08] VITALS: BP 121/70; PULSE 77; RESP 14; TEMP 37.1; O2SAT 97
[2022-06-08 03:47] VITALS: BP 143/75; PULSE 71; RESP 16; TEMP 36.2; O2SAT 97
[2022-06-08 07:43] VITALS: BP 151/73; PULSE 70; RESP 18; TEMP 37; O2SAT 99
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
[2022-06-08] MEDS: Metoprolol Succinate ER 50 MG TAB.ER.24H PO (09:03)
[2022-06-08] MEDS: Aspirin Enteric Coated 81 MG TABLET.DR PO (09:04)
[2022-06-08] MEDS: 0.9 % Sodium Chloride Flush 3 ML SYRINGE IVFLUSH (09:04)
[2022-06-08] MEDS: Lidocaine 4 % Patch ADH..PATCH 2 PATCH TRANSDERMA (09:04)
[2022-06-08] MEDS: Isosorbide Mononitrate 30 MG TAB.ER.24H PO (09:04)
[2022-06-08] MEDS: Losartan Potassium 25 MG TABLET PO (09:04)
[2022-06-08] MEDS: Ibuprofen 200 MG TABLET PO (09:06)
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
--- NOTE | 2022-06-08 13:46 | MHC.CM.PN ---
Patient has been medically cleared for dc to home, self care. PT is recommending STR and Patient has 2 SNF bed offers ([facility] and [facility])but Patient has refused these bed offers. Patient adamantly refuses a Residential and he insists that he wants to be dc to, the street. Patient is accepting of free bus passes. CM has relayed this information to the RN and PRESSING DEPARTMENT SUPERVISOR is also aware.
--- NOTE | 2022-06-08 14:14 | MHC.CM.PN ---
CM MET W/PT D/T PT ASKING ABOUT OUTPT PT HERE AT [facility], CM OBSERVED PT WALKING IN ROOM, PT COMING OUT OF BR AND WALKED OVER TO BED AND THEN TO CLOSET W.OUT WALKER TO GATHER HIS BELONGINGS. [place] [facility] PT WILL NEED REFERRAL FROM HIS PCP KAI PRIETO, PT AWARE AND PLANS TO WALK OVER TO DR BELL OFFICE TO SCHEDULE A FOLLOW-UP AND WILL REQUEST A REFERRAL FOR OUTPT PT. PT DID REITERATE THAT HE WOULD NOT GO FAR [facility] OR EVEN FAR [facility] FOR STR PT ALSO REPORTS HE WOULD LIKE CM TO CONTACT [facility] OFF[facility] TO LET HIM KNOW HE IS BEING DISCHARGED, CM ATTEMPTED TO CALL OFFICER [place] AND RECEIVED A CALL BACK, OFFICER [place] REPORTS HE AND THE CITY NURSE ARE WORKING ON A FEW OPTIONS FOR HOUSEING AND PT WAS SUPPOSED TO CHARGE HIS NEW PHONE AND CALL HIM HOWEVER PT NEVER CONTACTED OFFICER [place], PER CONVERSATION CM WILL GIVE PT OFFICER [place]'S CONTACT CARD. PT DISCHARGING TO STREET PER PT, PT PROVIDED W/PAMPHLET W/SHELTERS AND BUS PASSES.
== END 2022-06-08 15:00 | disposition home or self-care (01) ==
LOC: HO.ED 18:41 → HO.EDOVER 21:38 → HO.IMC 21:54
PROVIDERS: Internal Medicine; Physician Assistant; Admitting Provider Student in an Organized Health Care Education/Training Program; Emergency Provider Emergency Medicine; PCP Internal Medicine; Visit Provider Nurse Practitioner Acute Care
DX: R55 Syncope and collapse (principal); R07.89 Other chest pain; R53.1 Weakness; M79.605 Pain in left leg; M79.604 Pain in right leg; Z20.822 Contact with and (suspected) exposure to COVID-19; I10 Essential (primary) hypertension
CPT/HCPCS: 36415; 70450; 80048; 80076; 80307; 81003; 82550; 83735; 83880; 84484; 85025; 85379; 86140; 87635; 93005; 93970; 96372; 97116; 97162; 99222; 99285; J1650

== ENCOUNTER 2022-07-23 16:37 | Observation (INO) | payer MEDICARE, MEDICAID, SELFPAY ==
[2022-07-23] VITALS (7 sets, daily range): BP systolic 155–177; BP diastolic 79–93; PULSE 55–92; RESP 16–18; TEMP 36.5–36.9; O2SAT 95–98; BMI 25.8
--- NOTE | ~2022-07-23 | CT_ITS ---
EXAMINATION: CT HEAD WITHOUT CONTRAST CLINICAL INFORMATION: Syncope, head injury. COMPARISON: CT head 06/04/2022. TECHNIQUE: Contiguous axial imaging was performed from the skull base to vertex without intravenous administration of contrast. This CT examination was performed using dose optimization techniques as appropriate, variously including the following: *Automated exposure control *Adjustment of mA and/or kV according to patient size (this includes techniques or standardized protocols for targeted exams where dose is matched to indication/reason for exam; i.e. extremities or head) *Use of iterative reconstruction technique DLP: 466 mGy-cm FINDINGS: There is no evidence of acute intracranial hemorrhage or edematous territorial infarction. A few foci of hypoattenuation in the periventricular and deep white matter are consistent with mild microangiopathy. Glaser-white matter differentiation is preserved. Proportional prominence of the ventricles and sulcal spaces. No evidence for obstructive hydrocephalus. No abnormal mass effect or midline shift. No extra-axial fluid collections. No acute soft tissue or osseous abnormalities. Mucosal thickening of the left maxillary sinus and partial opacification of multiple ethmoid air cells. The mastoids and middle ear cavities are clear. CT/CT head/brain wo IV con IMPRESSION: No evidence of acute intracranial hemorrhage or edematous territorial infarction.
--- NOTE | ~2022-07-23 | XR_ITS ---
EXAMINATION: XR CHEST CLINICAL INFORMATION: Syncope. COMPARISON: Chest radiograph 05/27/2022. TECHNIQUE: Frontal view of the chest was obtained. FINDINGS: Stable appearance of the cardiomediastinal silhouette. No focal airspace opacity, pleural effusion or pneumothorax. No displaced osseous fractures. XR/XR chest 1V IMPRESSION: No acute cardiopulmonary findings.
--- NOTE | ~2022-07-23 | CT_ITS ---
EXAMINATION: CT ABDOMEN AND PELVIS WITHOUT CONTRAST CLINICAL INFORMATION: Syncope, abdominal pain, ecchymosis left abdomen. COMPARISON: CT abdomen/pelvis 06/14/2021. TECHNIQUE: Multidetector volumetric imaging was performed from the superior aspect of the liver through the pubic symphysis. Sagittal and coronal reformatted images were obtained on the technologist's workstation. This CT examination was performed using dose optimization techniques as appropriate, variously including the following: *Automated exposure control *Adjustment of mA and/or kV according to patient size (this includes techniques or standardized protocols for targeted exams where dose is matched to indication/reason for exam; i.e. extremities or head) *Use of iterative reconstruction technique DLP: 466 mGy-cm FINDINGS: The lack of intravenous contrast limits evaluation of the solid visceral organs including the liver, spleen, pancreas, and kidneys. LUNG BASES: Chronic peripheral reticulation. No focal consolidation or pleural effusion. LIVER, GALLBLADDER, AND BILIARY TREE: The noncontrast liver is normal in size, shape, and attenuation. No focal hepatic lesion. Chronic extrahepatic biliary ductal dilatation, stable the CBD measures up to 1 cm in diameter. The gallbladder is unremarkable with no evidence of radiopaque gallstones, gallbladder wall thickening, or obvious pericholecystic inflammatory changes. PANCREAS: Limited noncontrast examination. No significant peripancreatic fat stranding or free fluid. SPLEEN: Unremarkable. ADRENAL GLANDS: Unremarkable. KIDNEYS AND URETERS: Limited noncontrast examination. No nephrolithiasis or hydronephrosis. BLADDER: Trabeculated wall. No significant perivesical fat stranding. GASTROINTESTINAL TRACT: Surgical anastomosis in the distal stomach with multiple surrounding surgical clips in the upper abdomen. The stomach and the small bowel are nondilated. Normal appendix. No significant pericolonic inflammatory changes. No evidence of bowel obstruction. ABDOMINAL WALL: Postsurgical changes with surgical tacks and mesh in the lower anterior abdominal wall. No significant recurrent hernia. LYMPH NODES: No lymphadenopathy. VASCULAR: Atherosclerotic disease. Abdominal aorta is normal in caliber. PELVIC VISCERA: Mild prostatomegaly. OSSEOUS STRUCTURES: Multilevel degenerative changes. No acute or aggressive appearing osseous abnormalities. CT/CT abdomen pelvis wo IV con IMPRESSION: 1. No acute traumatic sequela in this limited noncontrast examination. 2. Chronic peripheral reticulation in the lung bases. 3. Mild diverticulosis without significant pericolonic inflammatory changes. 4. Postsurgical changes from partial gastrectomy and inguinal hernia repair. No evidence of bowel obstruction. No significant recurrent hernia. 5. Unchanged extrahepatic biliary ductal dilatation. 6. Trabeculated urinary bladder wall which could be seen with chronic outlet obstruction in the setting of prostatomegaly.
--- NOTE | 2022-07-23 16:53 | ECG_ITS ---
Test Reason : SYNCOPE Blood Pressure : / mmHG Vent. Rate : 055 BPM Atrial Rate : 055 BPM P-R Int : 166 ms QRS Dur : 134 ms QT Int : 458 ms P-R-T Axes : 034 -07 112 degrees QTc Int : 438 ms Sinus bradycardia Left bundle branch block Abnormal ECG When compared with ECG of 05-JUN-2022 23:10, No significant change was found Referred By: Yosef Delgadillo Electronically Signed By:KENNETH EVANS
--- NOTE | 2022-07-23 17:12 | ED.SYNCOPE ---
HPI - Syncope General Chief Complaint: Syncope Stated Complaint: syncopal episode Time Seen by Provider: 07/23/22 16:52 Source: patient and EMS Mode of arrival: EMS Limitations: no limitations History of Present Illness HPI narrative: 67-year-old male with past medical history significant for CAD s/p stent placement, nonischemic cardiomyopathy, HTN, PUD with history of partial gastrectomy, presented after a syncopal episode. Patient has been feeling lousy all day today with generalized weakness, complaining of chest pain, headache, left-sided abdominal pain. Patient otherwise decline photophobia, no neck stiffness, no neck pain, no SOB, known no vomiting, no blood per rectum with last bowel movement was yesterday and was normal. Patient had multiple ED visits and admission for similar presentation. Related Data Home Medications Medication Instructions Recorded Confirmed allopurinol 100 mg tablet 100 mg PO DAILY@1700 08/07/21 06/04/22 isosorbide mononitrate 30 mg 30 mg PO DAILY@0800 08/07/21 06/04/22 tablet,extended release 24 hr losartan 25 mg tablet 25 mg PO DAILY@0808/07/21 06/04/22 metoprolol succinate 50 mg 50 mg PO DAILY@0800 08/07/21 06/04/22 tablet,extended release 24 hr nitroglycerin 0.4 mg sublingual 1 tab sublingual TID PRN Chest Pain 08/07/21 06/04/22 tablet acetaminophen 500 mg tablet 2 tab PO TID PRN pain 02/16/22 06/04/22 fluticasone propionate 50 1 spray intranasal DAILY PRN 05/16/22 06/04/22 mcg/actuation nasal Allergy Symptoms spray,suspension ibuprofen 200 mg tablet 200 mg PO Q6H PRN Pain 05/16/22 06/04/22 aspirin 81 mg tablet,delayed 81 mg PO DAILY 06/04/22 06/04/22 release atorvastatin 80 mg tablet 80 mg PO DAILY 06/04/22 06/04/22 Allergies Allergy/AdvReac Type Severity Reaction Status Date / Time polyethylene glycol Allergy Itching Verified 07/23/22 16:49 Iodinated Contrast Media AdvReac Severe PARALYSIS/N Verified 07/23/22 16:49 [CONTRAST, IV] UMBNESS Review of Systems Review of Systems: All other systems are reviewed and are negative Constitutional: Reports as per HPI and Reports no additional constitutional complaints Eyes: Reports as per HPI and Reports no additional eye complaints Reports system reviewed and no additional complaints, except as documented Cardiovascular: Reports as per HPI and Reports no additional cardiovascular complaints Respiratory: Reports as per HPI and Reports no additional respiratory complaints Gastrointestinal: Reports as per HPI and Reports no additional gastrointestinal complaints Genitourinary: Reports no additional female genitourinary complaints Musculoskeletal: Reports no additional musculoskeletal complaints Skin/Breast: Reports system reviewed and no additional complaints, except as docu Psychiatric: Reports no additional psychiatric complaints Endocrine: Reports no additional endocrine complaints Hematologic/Lymphatic: Reports no additional hematologic/lymphatic complaints Allergic/Immunologic: Reports no additional allergic/immunologic complaints Reports system reviewed and no additional complaints, except as documented and Reports Abnormal speech present [facility] Past Medical History Medical History Airway polyps Atypical chest pain Chest pain Coronary artery disease Gout Hypertension Incarcerated left inguinal hernia Ischemic heart disease due to coronary artery obstruction Left bundle branch block Left bundle branch block NICM (nonischemic cardiomyopathy) No known health problems Peptic ulcer disease Syncope Surgical History H/O heart artery stent History of partial gastrectomy Family History Family History Father Myocardial infarction Social History Social History Household Members: None Household Members Other:: with friends, staying with friends Housing: Other Housing Other:: staying with a friend and financial assistance to find a hotel room Do you presently have visiting nurse or other home services: No Alcohol intake: former Patient Tobacco Use Status: Never used Tobacco Second Hand Smoke Exposure: Yes (friends he stays with smoke outside) Advance Directives: Yes Advance Directives on File: Yes Advance Directives Date on File: 01/29/22 service: No Current occupational status: unemployed Physical Exam Vital Signs: Vital Signs: Last Vital Signs Temp 97.7 F 07/23/22 19:59 Pulse 61 07/23/22 19:59 Resp 16 07/23/22 19:59 BP 175/79 H 07/23/22 19:59 Pulse Ox 98 07/23/22 19:59 O2 Del Method Room Air 07/23/22 19:59 BMI result Body Mass Index 25.8 Vital signs have been reviewed as appeared to be correct. Blood pressure normal. Heart rate normal. Respiration rate normal. Temperature normal. Oxygen saturation normal. Appearance: Alert. Oriented X3. No acute distress. Head: Normal external exam. Normocephalic. Atraumatic. No Barnes signs noted. No raccoon eyes noted Eyes: PERRLA. EOMI. Conjunctiva and sclera normal. Eyelids normal. ENT: TM's Normal. Pharynx normal. Uvula midline. Moist mucous membranes. No trismus noted. No drooling noted. No muffled voice noted. Neck: Normal inspection. Neck supple. FROM. No adenopathy. Thyroid Normal. No meningeal signs. No neck mass noted. CVS: Normal heart rate and rhythm. Heart sound normal. No murmurs noted. Pulses normal throughout. Respiratory: No respiratory distress. Painless inspiration. Breath sounds normal. No wheezes/rales/rhonchi noted. Chest nontender. No accessory muscle usage noted or decreased air movement noted. Abdomen: Soft, left abdominal small area of ecchymosis with mild tenderness but no rebound tenderness. Bowel sounds normal in all 4 quadrants. No distention noted. No organomegaly noted. No visible injury noted. Back: No CVA tenderness. Full range of motion noted. Skin: Skin warm and dry. Normal skin color. Normal skin turgor. No rashes/lesions/lacerations noted. Extremities: No lower extremity edema. Extremities exhibit normal range of motion. Extremities nontender. Neuro: Oriented X 3. Cranial nerve exam: II-XII are grossly intact No motor deficit. No sensory deficit. Reflexes normal. Course Course Course Narrative: A 67-year-old male history with extensive cardiac disease presented after had a full syncopal episode with collapse, initial workup for syncope in the emergency department is negative patient will get admitted for further cardiac monitoring. Medical Decision Making Differential Diagnosis Differential Diagnoses: The differential diagnosis associated with the presentation includes (ACS, dysrhythmia, head injury, intracranial bleed, intra-abdominal bleed, electrolyte abnormalities, dehydration, severe anemia.) Admission/Observation Consideration of admission/observation: Escalation of care including admission/observation considered Consult Healthcare Provider Management of the patient was discussed with: Hospitalist (Dr. Valentino) Lab Data MDM Lab Attestation statement: I reviewed the patient's lab results. 07/23/22 17:44 07/23/22 17:44 Labs: Lab Results 07/23/22 07/23/22 07/23/22 Range/Units 17:44 17:44 17:44 WBC 5.2 (4.8-10.8) X10*3/uL RBC 3.47 L (4.60-5.80) X10*6/uL Hgb 11.1 L (14.0-18.0) g/dl Hct 33.7 L (42.0-52.0) % MCV 97.1 (80.0-98.0) fL MCH 32.0 (27.0-33.0) pg MCHC 32.9 (31.0-36.0) g/dl RDW 13.4 (11.0-16.0) % Plt Count 212 D (160-400) X10*3/uL MPV 10.3 (9.4-12.4) fL Immature Gran % (Auto) 0.2 (0.0-0.4) % Neut % (Auto) 51.5 (45-73) % Lymph % (Auto) 31.2 (20-40) % [place] % (Auto) 11.6 H (2-11) % Eos % (Auto) 4.5 H (0-4) % Baso % (Auto) 1.0 (0-2) % Lymph # (Auto) 1.6 (1.2-4.9) X10*3/uL [place] # (Auto) 0.6 (0.1-1.2) X10*3/uL Eos # (Auto) 0.2 (0.0-0.4) X10*3/uL Baso # (Auto) 0.1 (0.0-0.2) X10*3/uL Abs Immat Gran (auto) 0.01 (0.00-0.03) X10*3/uL Absolute Neuts (auto) 2.7 (2.0-8.3) x10*3/uL Absolute Nucleated RBC 0.000 (0.0-0.012) X10*3/uL Nucleated RBC % (auto) 0.0 (0.0-0.2) /100WBC Sodium 143 (135-145) mmol/L Potassium 4.4 (3.3-5.1) mmol/L Chloride 111 H (96-108) mmol/L Carbon Dioxide 26 (22-29) mmol/L Anion Gap 10 L (12-20) BUN 19 H (9-16) mg/dL Creatinine 0.87 (0.5-1.4) mg/dL Estim Creat Clear Calc 83.9 Estimated GFR > 60 Random Glucose 95 (60-115) mg/dL Calcium 9.3 (8.4-10.2) mg/dL Total Bilirubin 0.8 (0.0-1.0) mg/dL Direct Bilirubin 0.2 (0.0-0.5) mg/dL AST 32 (5-37) U/L ALT 21 (0-40) U/L Alkaline Phosphatase 111 (39-117) U/L Troponin I High Sens 6.5 (<3.5-35.0) ng/L Total Protein 6.2 L (6.5-8.0) g/dL Albumin 3.9 (3.5-5.0) g/dL Lipase 25 (8-78) U/L Independent Interpretation I performed an independent interpretation of an: CT Scan (Head/abdomen and pelvis: No acute intracranial pathology, no intra-abdominal pathology.) Radiology Impression Discussion of test interpretation with radiology: I have reviewed the radiologist's reading. Chronic Conditions Patient?s care impacted by: Other (Chronic cardiac disease.) Discharge Plan Discharge Clinical Impression: Syncope and collapse Patient Disposition: Admitted As Inpatient
--- NOTE | 2022-07-23 17:48 | MHC.EDTECH ---
PATIENT EKG TAKEN AND WAS READ BY PROVIDER ,ORTHOSTATICS VITALS SIGN TAKEN ,BLOOD DRAWN AND SENT TO LAB .
[2022-07-23 17:50] LABS: MANUAL DIFF FLAG NO
[2022-07-23 18:11] LABS: Alanine Aminotransferase 21 U/L (0-40); Albumin Level 3.9 g/dL (3.5-5.0); Alkaline Phosphatase 111 U/L (39-117); Anion Gap 10 (12-20); Aspartate Amino Transferase 32 U/L (5-37); Bilirubin Direct 0.2 mg/dL (0.0-0.5); Bilirubin Total 0.8 mg/dL (0.0-1.0); Blood Urea Nitrogen 19 mg/dL (9-16); Calcium 9.3 mg/dL (8.4-10.2); Carbon Dioxide 26 mmol/L (22-29); Chloride 111 mmol/L (96-108); Creatinine Clr Calc Pharmacy 83.9; Estimated Glomerular Filt Rate > 60; Glucose Random 95 mg/dL (60-115); Lipase 25 U/L (8-78); Potassium 4.4 mmol/L (3.3-5.1); Sodium 143 mmol/L (135-145); Total Protein 6.2 g/dL (6.5-8.0)
[2022-07-23 18:16] LABS: Basophils Absolute Auto 0.1 X10*3/uL (0.0-0.2); Eosinophils Absolute Auto 0.2 X10*3/uL (0.0-0.4); Eosinophils Percent Auto 4.5 % (0-4); Hematocrit 33.7 % (42.0-52.0); Hemoglobin 11.1 g/dl (14.0-18.0); Imm Gran Abs Auto 0.01 X10*3/uL (0.00-0.03); Imm Gran Pct Auto 0.2 % (0.0-0.4); Lymphocytes Absolute Auto 1.6 X10*3/uL (1.2-4.9); Lymphocytes Percent Auto 31.2 % (20-40); Mean Corpuscular HGB Conc 32.9 g/dl (31.0-36.0); Mean Corpuscular Volume 97.1 fL (80.0-98.0); Mean Platelet Volume 10.3 fL (9.4-12.4); Monocytes Absolute Auto 0.6 X10*3/uL (0.1-1.2); Monocytes Percent Auto 11.6 % (2-11); Neutrophils Absolute Auto 2.7 x10*3/uL (2.0-8.3); Neutrophils Percent Auto 51.5 % (45-73); Platelet Count 212 X10*3/uL (160-400); Red Blood Count 3.47 X10*6/uL (4.60-5.80); Red Cell Distribution Width 13.4 % (11.0-16.0); White Blood Count 5.2 X10*3/uL (4.8-10.8)
[2022-07-23 18:18] LABS: Troponin-I High Sensitivity 6.5 ng/L (<3.5-35.0)
--- NOTE | 2022-07-23 20:01 | MHC.EDTECH ---
ROUNDING DONE ,1999 VITALS SIGN TAKEN PT URINE SAMPLE COLLECTED AND SENT TO LAB ,PT WATCHING TELEVISION .
[2022-07-23 20:08] LABS: Appearance Urine Clear; Color Urine Yellow; Glucose Urine UA Negative (Negative); Leukocyte Esterase Urine Negative (Negative); Nitrite Urine Negative (Negative); PH 5.5 (5.0-9.0); Urine Blood Negative (Negative); Urine Ketones Negative (Negative); Urine Protein Negative (Neg-Trace)
--- NOTE | 2022-07-23 20:17 | P.HPHOSP_ITS ---
History of Present Illness Date of Service: 07/23/22 Attending physician on admission: Lidia Valentino Chief Complaint: Syncope Pt is a 67-year-old male with a PMH significant for?CAD sp stent placement, nonischemic cardiomyopathy, HTN, gout, PUD, and hx of partial gastrectomy?who presents to the ED after experiencing a syncopal episode earlier today. Patient is currently staying at a recovery nursing home. Patient stated he had been feeling ?lousy? all day which he primarily attributed to feeling dizzy. Right before dinner patient walked into the day room and suddenly collapsed. Patient says that he had a chair and then his head on the carpeted floor and was unconscious for 20-30 minutes. Patient was awoken by EMS and he had a headache, felt like he was in a ?fog?, but denies confusion or difficulty speaking. Says he remembers speaking to EMS and says he answered appropriately to their questions. Of note patient has a long history of syncopal episodes and has numerous admissions both here and at [facility] for similar symptoms. He has had extensive workup in the past which has been negative for acute findings. Patient complains of chronic left-sided abdominal pain that has been ongoing for ?months?. Patient was seen 2 weeks ago at [facility] for abdominal pain and diagnosed with an ulcer. Patient states that his current pain has not increased or changed in the past few months. Patient denies hematochezia or hematemesis. Patient denies fever, chills, nausea, vomiting, diarrhea. In the ED patient was afebrile but hypertensive at 177/93. Labs were significant for stable H&H of 11.1/33.7. Electrolytes largely WNL. Renal function basel ine. Hepatic function WNL. Troponin negative. UA negative for UTI. CXR showed no acute cardiopulmonary findings. CT?of abdomen and pelvis found no acute traumatic sequelae. CT of head found no evidence of acute intracranial hemorrhage or edematous territorial infarction. EKG demonstrated sinus b radycardia 55 with chronic LBBB, similar to previous EKGs. Pt will be admitted to the hospital under observation for evaluation of syncopal episode. Review of Systems Review of Systems: Syncopal episode lasting 20-30 minutes Dizziness Headache Denies fever, chills, nausea, vomiting, diarrhea No chest pain/pressure, palpitations. Denies current shortness of breath Yes all other systems are reviewed and are negative [facility] Medical History Airway polyps Atypical chest pain Chest pain Coronary artery disease Gout Hypertension Incarcerated left inguinal hernia Ischemic heart disease due to coronary artery obstruction Left bundle branch block Left bundle branch block NICM (nonischemic cardiomyopathy) No known health problems Peptic ulcer disease Syncope Family History Father Myocardial infarction Surgical History H/O heart artery stent History of partial gastrectomy Social History Household Members: None Household Members Other:: with friends, staying with friends Housing: Other Housing Other:: staying with a friend and financial assistance to find a hotel room Do you presently have visiting nurse or other home services: No Alcohol intake: current Alcohol intake frequency: does not drink Patient Tobacco Use Status: Never used Tobacco Second Hand Smoke Exposure: Yes (friends he stays with smoke outside) Advance Directives Date on File: 01/29/22 service: No Current occupational status: unemployed Meds Allergies Allergy/AdvReac Type Severity Reaction Status Date / Time polyethylene glycol Allergy Itching Verified 07/23/22 16:49 Iodinated Contrast Media AdvReac Severe PARALYSIS/N Verified 07/23/22 16:49 [CONTRAST, IV] UMBNESS Home Medications Medication Instructions Recorded Confirmed Last Taken Type allopurinol 100 mg tablet 100 mg PO DAILY@1700 08/07/21 07/23/22 07/22/22 History isosorbide mononitrate 30 mg 30 mg PO DAILY@0800 08/07/21 07/23/22 07/23/22 History tablet,extended release 24 hr losartan 25 mg tablet 25 mg PO DAILY@0800 08/07/21 07/23/22 07/23/22 History metoprolol succinate 50 mg 75 mg PO DAILY@0800 08/07/21 07/23/22 07/23/22 History tablet,extended release 24 hr acetaminophen 500 mg tablet 2 tab PO TID PRN pain 02/16/22 07/23/22 05/15/22 History fluticasone propionate 50 1 spray intranasal DAILY PRN 05/16/22 07/23/22 Unknown History mcg/actuation nasal Allergy Symptoms spray,suspension aspirin 81 mg tablet,delayed 81 mg PO DAILY 06/04/22 07/23/22 07/23/22 History release atorvastatin 80 mg tablet 80 mg PO DAILY 06/04/22 07/23/22 07/23/22 History omeprazole 40 mg capsule,delayed 40 mg PO BID 07/23/22 07/23/22 07/23/22 History release sucralfate 100 mg/mL oral 10 ml PO QIDACHS 07/23/22 07/23/22 07/23/22 14:00 History suspension (Carafate) Physical Exam Vital Signs and Narrative: Vital Signs: Last Vital Signs Temp 97.7 F 07/23/22 19:59 Pulse 61 07/23/22 19:59 Resp 16 07/23/22 19:59 BP 175/79 H 07/23/22 19:59 Pulse Ox 98 07/23/22 19:59 O2 Del Method Room Air 07/23/22 19:59 BMI result Body Mass Index 25.8 Constitutional: Alert, in no acute distress. Mental Status: Oriented to person, place and time. Eyes: Pupils are equal, round, and reactive to light. Ear, Nose, and Throat: Oropharynx clear, mucous membranes moist. Ears and nose without deformities. Trachea midline. Respiratory: Clear to auscultation bilaterally. No wheezing, rales, or rhonchi. Cardiovascular: S1, S2 regular. No murmurs, rubs, or gallops. Gastrointestinal: Abdomen soft, non-distended, mild left lower quadrant tenderness. Normal bowel sounds. Neurologic: Cranial nerves II-XII are grossly intact bilaterally. No focal neurological deficits. Moves all extremities spontaneously. Skin: No rashes or lesions noted. Musculoskeletal: No cyanosis or clubbing. Extremities: No edema. Psychiatric: Normal mood and affect. Results Labs 07/23/22 17:44 07/23/22 17:44 Labs: Laboratory Results - last 24 hr 07/23/22 07/23/22 07/23/22 17:44 17:44 17:44 MCV 97.1 MCH 32.0 MCHC 32.9 RDW 13.4 Plt Count 212 D MPV 10.3 Immature Gran % (Auto) 0.2 Neut % (Auto) 51.5 Lymph % (Auto) 31.2 [place] % (Auto) 11.6 H Eos % (Auto) 4.5 H Baso % (Auto) 1.0 Lymph # (Auto) 1.6 [place] # (Auto) 0.6 Eos # (Auto) 0.2 Baso # (Auto) 0.1 Abs Immat Gran (auto) 0.01 Absolute Neuts (auto) 2.7 Absolute Nucleated RBC 0.000 Nucleated RBC % (auto) 0.0 Anion Gap 10 L Estim Creat Clear Calc 83.9 Estimated GFR > 60 Random Glucose 95 Calcium 9.3 Total Bilirubin 0.8 Direct Bilirubin 0.2 AST 32 ALT 21 Alkaline Phosphatase 111 Troponin I High Sens 6.5 Total Protein 6.2 L Albumin 3.9 Lipase 25 Urine Color Urine Appearance Urine pH Ur Specific [place] Urine Protein Urine Glucose (UA) Urine Ketones Urine Blood Urine Nitrite Ur Leukocyte Esterase 07/23/22 19:57 MCV MCH MCHC RDW Plt Count MPV Immature Gran % (Auto) Neut % (Auto) Lymph % (Auto) [place] % (Auto) Eos % (Auto) Baso % (Auto) Lymph # (Auto) [place] # (Auto) Eos # (Auto) Baso # (Auto) Abs Immat Gran (auto) Absolute Neuts (auto) Absolute Nucleated RBC Nucleated RBC % (auto) Anion Gap Estim Creat Clear Calc Estimated GFR Random Glucose Calcium Total Bilirubin Direct Bilirubin AST ALT Alkaline Phosphatase Troponin I High Sens Total Protein Albumin Lipase Urine Color Yellow Urine Appearance Clear Urine pH 5.5 Ur Specific [place] 1.020 Urine Protein Negative Urine Glucose (UA) Negative Urine Ketones Negative Urine Blood Negative Urine Nitrite Negative Ur Leukocyte Esterase Negative Imaging Radiologist's Impressions: Impressions Chest X-Ray 07/23/22 17:10 IMPRESSION: No acute cardiopulmonary findings. Abdomen/Pelvis CT 07/23/22 18:03 IMPRESSION: 1. No acute traumatic sequela in this limited noncontrast examination. 2. Chronic peripheral reticulation in the lung bases. 3. Mild diverticulosis without significant pericolonic inflammatory changes. 4. Postsurgical changes from partial gastrectomy and inguinal hernia repair. No evidence of bowel obstruction. No significant recurrent hernia. 5. Unchanged extrahepatic biliary ductal dilatation. 6. Trabeculated urinary bladder wall which could be seen with chronic outlet obstruction in the setting of prostatomegaly. Head CT 07/23/22 18:03 IMPRESSION: No evidence of acute intracranial hemorrhage or edematous territorial infarction. Assessment and Plan (1) Syncope and collapse: Status: Acute Plan Pt is a 67-year-old male with a PMH significant for?CAD sp stent placement, nonischemic cardiomyopathy, HTN, gout, PUD, and hx of partial gastrectomy?who presents to the ED after experiencing a syncopal episode earlier today. Patient will be admitted to observation on telemetry for syncope. Syncopal episode Pt states had a witnessed syncopal episodes earlier today, lasted 20-30 minutes Has had a history of syncopal episodes in the past 2-3 years with extensive negative workup Pt was advised upon last discharge to follow-up with cardiology for event monitor, claims was unable to comply d/t problem with insurance Orthostatics negative, labs largely unremarkable, EKG similar to previous Monitor on telemetry Cardiology consult Neurology consult Abdominal pain Pt complaining of chronic left lower quadrant tenderness that has been ongoing for months Pt claims was seen at [facility] a couple of weeks ago and diagnosed with an ulcer Abdominal pain has not changed or worsened recently, described as dull and achy, rated a 5/10 CT of abdomen negative for acute abdomen Continue PPI CAD Pt states has had intermittent chest pain for past 8 years since diagnosed with LBBB S/P stenting of LAD in December of 2020 at [facility] Current not complaining of any angina-type symptoms, troponin negative, EKG negative Continue aspirin, isosorbide mononitrate, nitroglycerin, metoprolol Monitor on telemetry Cardiology consult HTN Continue metoprolol, losartan Gout Continue allopurinol Full Code Attending:?Dr. Nelson DVT Prophylaxis: Lovenox Patient will be admitted to observation on telemetry for treatment and further evaluation of syncope with specialist consults. Time Spent With Patient Time: Total time managing care of this patient today ____ minutes. Quality Stroke Does the patient have a stroke diagnosis?: No VTE Prior VTE?: No VTE Risk Level:: Medical - moderate - high VTE Device Contraindication: Treatment Not Indicated VTE Drug Contraindication: N/A - Med Ordered
--- NOTE | 2022-07-23 20:36 | MHC.EDTECH ---
patient got change into hospital attire .
[2022-07-23] MEDS: Enoxaparin Sodium 40 MG/0.4 ML SYRINGE SUBCUT (21:11)
--- NOTE | 2022-07-23 21:14 | PC.NURSE ---
pt assessed, denies any complaints
--- NOTE | 2022-07-23 21:29 | PHA.MEDREC ---
Pharmacy Consult ? Medication Reconciliation Pharmacy has completed the medication reconciliation. Pt had list at bedside. confirmed dose increase for metoprolol to 75 mg daily and discontinued pantoprazole/started omeprazole.
[2022-07-24 00:36] VITALS: BP 174/82; PULSE 60; RESP 16; TEMP 36.8; O2SAT 100
[2022-07-24] MEDS: Acetaminophen 325 MG TABLET 650 MG PO (00:42)
[2022-07-24] MEDS: 0.9 % Sodium Chloride Flush 3 ML SYRINGE IVFLUSH ×2 (00:43→08:19)
[2022-07-24 03:55] VITALS: BP 155/84; PULSE 86; RESP 18; TEMP 36.8; O2SAT 96
[2022-07-24 06:45] LABS: Hematocrit 35.6 % (42.0-52.0); Hemoglobin 11.6 g/dl (14.0-18.0); Mean Corpuscular HGB Conc 32.6 g/dl (31.0-36.0); Mean Corpuscular Hemoglobin 31.1 pg (27.0-33.0); Mean Corpuscular Volume 95.4 fL (80.0-98.0); Mean Platelet Volume 9.7 fL (9.4-12.4); Platelet Count 207 X10*3/uL (160-400); Red Blood Count 3.73 X10*6/uL (4.60-5.80); Red Cell Distribution Width 13.4 % (11.0-16.0); White Blood Count 3.9 X10*3/uL (4.8-10.8)
[2022-07-24 07:16] LABS: Anion Gap 11 (12-20); Blood Urea Nitrogen 16 mg/dL (9-16); Calcium 9.6 mg/dL (8.4-10.2); Carbon Dioxide 26 mmol/L (22-29); Chloride 110 mmol/L (96-108); Creatinine Clr Calc Pharmacy 86.9; Estimated Glomerular Filt Rate > 60; Glucose Random 86 mg/dL (60-115); Potassium 4.2 mmol/L (3.3-5.1); Sodium 143 mmol/L (135-145)
[2022-07-24 07:55] VITALS: BP 166/82; PULSE 78; RESP 20; TEMP 36.6; O2SAT 98
[2022-07-24] MEDS: Aspirin Enteric Coated 81 MG TABLET.DR PO (08:18)
[2022-07-24] MEDS: Omeprazole 40 MG CAPSULE.DR PO (08:18)
[2022-07-24] MEDS: Sucralfate Oral Suspension 1 GM/10 ML ORAL.SUSP PO ×2 (08:18→10:23)
[2022-07-24] MEDS: Losartan Potassium 25 MG TABLET PO (08:18)
[2022-07-24] MEDS: Atorvastatin Calcium 80 MG TABLET PO (08:19)
[2022-07-24] MEDS: Isosorbide Mononitrate 30 MG TAB.ER.24H PO (08:19)
[2022-07-24 08:25] VITALS: PULSE 58
--- NOTE | 2022-07-24 08:27 | MHC.CM.PN ---
CM met with Patient at bedside and addressed [facility] with him, providing him with the original and a copy has been placed on the chart. Patient is stayoing at [facility] and he hopes to return there once medically cleared for dc.CM has initiated and will follow for dc planning. 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 Patient is covid vax'd and his PCP is Dr. Naseem Alford. HCP is on file.
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
--- NOTE | 2022-07-24 10:29 | PM.DS ---
DS: Providers Provider Date of Service: 07/24/22 Date of admission: 07/23/22 21:03 Primary care physician: Naseem Alford MD Consults: 07/23/22 21:01 Consult to Cardiology Routine Consulting Provider: [facility] Reason for consultation: Syncopal episode Consult to Neurology Routine Consulting Provider: [facility] Reason for consultation: Syncopal episode DS: Diagnosis Discharge Diagnosis (1) Syncope and collapse: Status: Acute (2) Left bundle branch block: Status: Acute (3) Coronary artery disease: Status: Acute (4) NICM (nonischemic cardiomyopathy): Status: Acute DS: Summary Hospital Course Hospital Course: from initial hpi: 67-year-old male with a PMH significant for CAD sp stent placement, cardiomyopathy, HTN, gout, PUD, and hx of partial gastrectomy who presents to the ED after experiencing a syncopal episode earlier today. Patient is currently staying at a recovery retirement. Patient stated he had been feeling ?lousy? all day which he primarily attributed to feeling dizzy. Right before dinner patient walked into the day room and suddenly collapsed. Patient says that he had a chair and then his head on the carpeted floor and was unconscious for 20-30 minutes. Patient was awoken by EMS and he had a headache, felt like he was in a ?fog?, but denies confusion or difficulty speaking. Says he remembers speaking to EMS and says he answered appropriately to their questions. Of note patient has a long history of syncopal episodes and has numerous admissions both here and at [facility] for similar symptoms. He has had extensive workup in the past which has been negative for acute findings. Patient complains of chronic left-sided abdominal pain that has been ongoing for ?months?. Patient was seen 2 weeks ago at [facility] for abdominal pain and diagnosed with an ulcer. Patient states that his current pain has not increased or changed in the past few months. Patient denies hematochezia or hematemesis. Patient denies fever, chills, nausea, vomiting, diarrhea. In the ED patient was afebrile but hypertensive at 177/93. Labs were significant for stable H&H of 11.1/33.7. Electrolytes largely WNL. Renal function baseline. Hepatic function WNL. Troponin negative. UA negative for UTI. CXR showed no acute cardiopulmonary findings. CT of abdomen and pelvis found no acute traumatic sequelae. CT of head found no evidence of acute intracranial hemorrhage or edematous territorial infarction. EKG demonstrated sinus bradycardia 55 with chronic LBBB, similar to previous EKGs. Pt will be admitted to the hospital under observation for evaluation of syncopal episode. hospital course: patient was observed of recurrent syncopal episode. he had no further episode during omonitoring, tele unremarkable. was seen by cardiology, who felt this was unlikely to be cardiac event, as he has already had extensive work up, unlikely to benfit from further inpatient work up. 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 for PUD was conitnued on ppi, for CAD conitnued on asa. for chronic systolic chf continued on imdur, metoprolol, losartan. for htn continued on metoprolol, imdur, losartan. for gout allopurinol. patient feels well, will be discharged home. Time Spent with Patient Time attestation: Total time managing care of this patient today ____ minutes. Discharge coordination time: Greater than 30 minutes Quality: Safe Use of Opioids Does Pt have an Active Cancer Diagnosis on the Problem List?: No Quality: Stroke Does the patient have a stroke diagnosis?: No Physical Exam Vital Signs: Vital Signs: Last Vital Signs Temp 97.8 F 07/24/22 07:55 Pulse 58 07/24/22 08:25 Resp 20 07/24/22 07:55 BP 166/82 H 07/24/22 07:55 Pulse Ox 98 07/24/22 07:55 O2 Del Method Room Air 07/24/22 07:55 BMI result Body Mass Index 25.8 Const: General: comfortable and no acute distress Orientation/consciousness: patient oriented x3 HEENT: Other: Unremarkable Head: Yes normal to inspection Neck: Neck: Yes normal visual inspection Chest: Chest palpation & inspection: normal inspection of the chest Resp: Auscultation: clear to auscultation bilaterally Cardio: Palpation: normal PMI Heart sounds: S1 normal heart sound present, S2 normal heart sound present, no gallops, no murmurs and no rubs GI: Palpation (GI): Soft to palpation Back/Spine/Pelvis: Other: unremarkable Skin: General skin exam: no rashes or lesions noted Neuro: General: patient oriented x3 Extrem: General: Yes normal to inspection Psych: Mental Status: mental status grossly normal DS: Data Data Completed and Pending Completed studies during hospitalization [Text1]: Procedures Drainage of Bilateral Lungs, Via Natural or Artificial Opening, Diagnostic (01/19/22) Extirpation of Matter from Left Main Bronchus, Via Natural or Artificial Opening Endoscopic (01/19/22) Extirpation of Matter from Right Main Bronchus, Via Natural or Artificial Opening Endoscopic (01/19/22) Insertion of Endotracheal Airway into Trachea, Via Natural or Artificial Opening (01/19/22) Respiratory Ventilation, 24-96 Consecutive Hours (01/19/22) Labs on day of discharge: Laboratory Results - last 24 hr 07/23/22 07/23/22 07/23/22 17:44 17:44 17:44 WBC 5.2 RBC 3.47 L Hgb 11.1 L Hct 33.7 L MCV 97.1 MCH 32.0 MCHC 32.9 RDW 13.4 Plt Count 212 D MPV 10.3 Immature Gran % (Auto) 0.2 Neut % (Auto) 51.5 Lymph % (Auto) 31.2 [place] % (Auto) 11.6 H Eos % (Auto) 4.5 H Baso % (Auto) 1.0 Lymph # (Auto) 1.6 [place] # (Auto) 0.6 Eos # (Auto) 0.2 Baso # (Auto) 0.1 Abs Immat Gran (auto) 0.01 Absolute Neuts (auto) 2.7 Absolute Nucleated RBC 0.000 Nucleated RBC % (auto) 0.0 Sodium 143 Potassium 4.4 Chloride 111 H Carbon Dioxide 26 Anion Gap 10 L BUN 19 H Creatinine 0.87 Estim Creat Clear Calc 83.9 Estimated GFR > 60 Random Glucose 95 Calcium 9.3 Total Bilirubin 0.8 Direct Bilirubin 0.2 AST 32 ALT 21 Alkaline Phosphatase 111 Troponin I High Sens 6.5 Total Protein 6.2 L Albumin 3.9 Lipase 25 Urine Color Urine Appearance Urine pH Ur Specific [place] Urine Protein Urine Glucose (UA) Urine Ketones Urine Blood Urine Nitrite Ur Leukocyte Esterase 07/23/22 07/24/22 07/24/22 19:57 06:20 06:20 WBC 3.9 L RBC 3.73 L Hgb 11.6 L Hct 35.6 L MCV 95.4 MCH 31.1 MCHC 32.6 RDW 13.4 Plt Count 207 MPV 9.7 Immature Gran % (Auto) Neut % (Auto) Lymph % (Auto) [place] % (Auto) Eos % (Auto) Baso % (Auto) Lymph # (Auto) [place] # (Auto) Eos # (Auto) Baso # (Auto) Abs Immat Gran (auto) Absolute Neuts (auto) Absolute Nucleated RBC 0.000 Nucleated RBC % (auto) 0.0 Sodium 143 Potassium 4.2 Chloride 110 H Carbon Dioxide 26 Anion Gap 11 L BUN 16 Creatinine 0.84 Estim Creat Clear Calc 86.9 Estimated GFR > 60 Random Glucose 86 Calcium 9.6 Total Bilirubin Direct Bilirubin AST ALT Alkaline Phosphatase Troponin I High Sens Total Protein Albumin Lipase Urine Color Yellow Urine Appearance Clear Urine pH 5.5 Ur Specific [place] 1.020 Urine Protein Negative Urine Glucose (UA) Negative Urine Ketones Negative Urine Blood Negative Urine Nitrite Negative Ur Leukocyte Esterase Negative Discharge Plan Discharge Anticipated Discharge Date/Time: 07/24/22 10:21 Patient Disposition: Home, Self-Care Discharge Diagnosis: syncope Referrals: Naseem Alford MD [Primary Care Provider] - 1 Week Discharge Medications: Continued acetaminophen 500 mg tablet 2 tab PO TID PRN (Reason: pain) fluticasone propionate 50 mcg/actuation [place],Suspension 1 spray INTRANASAL DAILY PRN (Reason: Allergy Symptoms) Rx Instructions: administer into each nostril allopurinol 100 mg Tablet 100 mg PO DAILY@1700 losartan 25 mg Tablet 25 mg PO DAILY@0800 isosorbide mononitrate 30 mg Tablet Extended Release 24 Hr 30 mg PO DAILY@0800 metoprolol succinate 50 mg Tablet Extended Release 24 Hr 75 mg PO DAILY@0800 atorvastatin 80 mg tablet 80 mg PO DAILY aspirin 81 mg tablet,delayed release (DR/EC) 81 mg PO DAILY sucralfate [Carafate] 100 mg/mL suspension 10 ml PO QIDACHS omeprazole 40 mg capsule,delayed release(DR/EC) 40 mg PO BID Discharge Orders: Discharge Order (Routine); Ordered 07/24/22 Ordered By: Henry Drake Diet: Advance to usual diet Activity on Discharge: As tolerated Stand Alone Forms: Patient Portal Discharge page Care Plan Goals: prevent sycnope Health Concerns: syncope Plan of Treatment: follow up with your cardiologisy, consider holter Assessment: see above
--- NOTE | 2022-07-24 10:44 | MHC.CM.PN ---
Patient has been medically cleared for dc to home today, self care. Patient will dc at 12:30 PM, via [facility] Shuttle. RN is aware/shuttle coupon provided by [employer].
--- NOTE | 2022-07-24 11:13 | PM.NEUROCN ---
History of Present Illness Data of Consult Service Date: 07/24/22 Primary Care Provider: Naseem Alford MD [facility] Reason for consult: Syncope 67 years old man with previous history of syncope investigated in 2019 with a negative EEG. No cause was found at that time. He came back with somewhat similar episode stating that he was suffering from some abdominal pain related to also and passed out because of that. It was not clear what exactly had happened. There was no witnessing of any convulsion. He did not have recollection of what had happened. Review of Systems Review of Systems: No cold or flu-like illness or exposure to new drug [facility] Past Medical History Medical History (Updated 07/24/22 @ 09:44 by Godwin Owens MD) Airway polyps Atypical chest pain Chest pain Coronary artery disease Gout Hypertension Incarcerated left inguinal hernia Ischemic heart disease due to coronary artery obstruction Left bundle branch block Left bundle branch block NICM (nonischemic cardiomyopathy) No known health problems Peptic ulcer disease Syncope Family History Family History Father Myocardial infarction Surgical History Surgical History H/O heart artery stent History of partial gastrectomy Social History Social History Household Members: Other Household Members Other:: with friends, staying with friends Housing: Other Housing Other:: staying with a friend and financial assistance to find a hotel room Do you presently have visiting nurse or other home services: No Alcohol intake: current Alcohol intake frequency: does not drink Patient Tobacco Use Status: Never used Tobacco Second Hand Smoke Exposure: Yes (friends he stays with smoke outside) Advance Directives Date on File: 01/29/22 service: No Current occupational status: unemployed Meds Allergies Allergy/AdvReac Type Severity Reaction Status Date / Time polyethylene glycol Allergy Itching Verified 07/23/22 16:49 Iodinated Contrast Media AdvReac Severe PARALYSIS/N Verified 07/23/22 16:49 [CONTRAST, IV] UMBNESS Active Medications: Current Medications Acetaminophen (Acetaminophen 325 Mg Tablet) 650 mg PO Q6H PRN PRN Reason: Pain, Mild (Pain Scale 1-3) Last Admin: 07/24/22 00:42 Dose: 650 mg Allopurinol (Allopurinol 100 Mg Tablet) 100 mg PO DAILY@1700 [facility] Aspirin (Aspirin Enteric Coated 81 Mg Tablet.) 81 mg PO DAILY [facility] Last Admin: 07/24/22 08:18 Dose: 81 mg Atorvastatin Calcium (Atorvastatin Calcium 80 Mg Tablet) 80 mg PO DAILY [facility] Last Admin: 07/24/22 08:19 Dose: 80 mg Enoxaparin Sodium (Enoxaparin Sodium 40 Mg/0.4 Ml Syringe) 40 mg SUBCUT Q24H [facility] Last Admin: 07/23/22 21:11 Dose: 40 mg Fluticasone Propionate (Fluticasone Propionate Nasal 16 Gm [place]) 1 spray NOSTRIL-B DAILY PRN PRN Reason: Allergy Symptoms Isosorbide Mononitrate (Isosorbide Mononitrate 30 Mg Tab.Er.24h) 30 mg PO DAILY@0800 [facility]; Protocol Last Admin: 07/24/22 08:19 Dose: 30 mg Losartan Potassium (Losartan Potassium 25 Mg Tablet) 25 mg PO DAILY@0800 [facility]; Protocol Last Admin: 07/24/22 08:18 Dose: 25 mg Metoprolol Succinate (Metoprolol Succinate Er 25 Mg Tab.Er.24h) 75 mg PO DAILY@0800 [facility]; Protocol Last Admin: 07/24/22 08:25 Dose: Not Given Omeprazole (Omeprazole 40 Mg Capsule.) 40 mg PO BID [facility] Last Admin: 07/24/22 08:18 Dose: 40 mg Ondansetron HCl (Ondansetron Hcl 4 Mg/2 Ml Vial) 4 mg IVPUSH Q8H PRN PRN Reason: Nausea and Vomiting Pharmacy Consult (Consult Rx Perform Med Rec) 1 each MISCELLANE ONCE PRN PRN Reason: Consult order Sodium Chloride (0.9 % Sodium Chloride Flush 3 Ml Syringe) 3 ml IVFLUSH QSHIFT [facility] Last Admin: 07/24/22 08:19 Dose: 3 ml Sucralfate (Sucralfate Oral Suspension 1 Gm/10 Ml Oral.Susp) 1 gm PO QIDACHS [facility] Last Admin: 07/24/22 10:23 Dose: 1 gm Home Medications Medication Instructions Recorded Confirmed Last Taken Type allopurinol 100 mg tablet 100 mg PO DAILY@1700 08/07/21 07/23/22 07/22/22 History isosorbide mononitrate 30 mg 30 mg PO DAILY@0800 08/07/21 07/23/22 07/23/22 History tablet,extended release 24 hr losartan 25 mg tablet 25 mg PO DAILY@79908/07/21 07/23/22 07/23/22 History metoprolol succinate 50 mg 75 mg PO DAILY@79908/07/21 07/23/22 07/23/22 History tablet,extended release 24 hr acetaminophen 500 mg tablet 2 tab PO TID PRN pain 02/16/22 07/23/22 05/15/22 History fluticasone propionate 50 1 spray intranasal DAILY PRN 05/16/22 07/23/22 Unknown History mcg/actuation nasal Allergy Symptoms spray,suspension aspirin 81 mg tablet,delayed 81 mg PO DAILY 06/04/22 07/23/22 07/23/22 History release atorvastatin 80 mg tablet 80 mg PO DAILY 06/04/22 07/23/22 07/23/22 History omeprazole 40 mg capsule,delayed 40 mg PO BID 07/23/22 07/23/22 07/23/22 History release sucralfate 100 mg/mL oral 10 ml PO QIDACHS 07/23/22 07/23/22 07/23/22 14:00 History suspension (Carafate) Physical Exam Vital Signs: Vital Signs: Last Vital Signs Temp 97.8 F 07/24/22 07:55 Pulse 58 07/24/22 08:25 Resp 20 07/24/22 07:55 BP 166/82 H 07/24/22 07:55 Pulse Ox 98 07/24/22 07:55 O2 Del Method Room Air 07/24/22 07:55 BMI result Body Mass Index 25.8 Neuro: Other: He is alert and awake with normal spontaneity of speech fluency comprehension and affect. Face is symmetrical. Visual prieto are full. Deep tendon reflexes are trace to absent with flexor plantars. Affect is normal. Results Labs 07/24/22 06:20 07/24/22 06:20 Labs: Short CBC 07/23/22 07/24/22 Range/Units 17:44 06:20 WBC 5.2 3.9 L (4.8-10.8) X10*3/uL Hgb 11.1 L 11.6 L (14.0-18.0) g/dl Hct 33.7 L 35.6 L (42.0-52.0) % Plt Count 212 D 207 (160-400) X10*3/uL BMP 07/23/22 07/24/22 17:44 06:20 Sodium 143 143 Potassium 4.4 4.2 Chloride 111 H 110 H Carbon Dioxide 26 26 BUN 19 H 16 Creatinine 0.87 0.84 Calcium 9.3 9.6 Liver Function 07/23/22 Range/Units 17:44 Total Bilirubin 0.8 (0.0-1.0) mg/dL Direct Bilirubin 0.2 (0.0-0.5) mg/dL AST 32 (5-37) U/L ALT 21 (0-40) U/L Alkaline Phosphatase 111 (39-117) U/L Albumin 3.9 (3.5-5.0) g/dL Urine 07/23/22 Range/Units 19:57 Urine Color Yellow Urine Appearance Clear Urine pH 5.5 (5.0-9.0) Ur Specific [place] 1.020 (1.005-1.025) Urine Protein Negative (Neg-Trace) mg/dL Urine Glucose (UA) Negative (Negative) mg/dL CT revealed mild diffuse cerebral atrophy. Assessment and Plan (1) Syncope and collapse: Start date: 07/24/22 Status: Acute 67 years old man with unexplained syncope, which she had in 2019 too when he was admitted in hospital. If no other etiology is found, I recommend outpatient long-term EEG monitoring to rule out epilepsy. Time Spent With Patient Time: Total time managing care of this patient today ____ minutes. Procedures Date of Service Date of Service: 07/24/22
[2022-07-24 11:41] VITALS: BP 129/70; PULSE 72; RESP 20; TEMP 36.6; O2SAT 97
== END 2022-07-24 12:15 | disposition home or self-care (01) ==
LOC: HO.ED 20:04 → HO.EDOVER 21:37 → HO.IMC 22:45
PROVIDERS: Admitting Provider Student in an Organized Health Care Education/Training Program; Emergency Provider Emergency Medicine; PCP Internal Medicine; Visit Provider Internal Medicine
DX: R55 Syncope and collapse (principal); I44.7 Left bundle-branch block, unspecified; I42.8 Other cardiomyopathies
CPT/HCPCS: 36415; 70450; 71045; 74176; 80048; 80076; 81003; 83690; 84484; 85025; 85027; 93005; 96372; 99222; 99285; J1650

== ENCOUNTER 2022-07-30 05:52 | Emergency (ER) | payer MEDICARE, MEDICAID, SELFPAY ==
--- NOTE | ~2022-07-30 | CT_ITS ---
EXAMINATION: CT HEAD WITHOUT CONTRAST (STROKE PROTOCOL) INDICATION INFORMATION: Acute CVA, question bleed COMPARISON: 07/23/2022 TECHNIQUE: Noncontrast CT of the head was performed. DLP: 716 mGy-cm DOSE LOWERING TECHNIQUES: This CT examination was performed using dose optimization techniques as appropriate, variously including the following: - Automated exposure control - Adjustment of mA and/or kV according to patient size (this includes techniques or standardized protocols for targeted exams were dose is matched to indication/reason for exam; i.e. extremities or head) - Use of iterative reconstruction technique After several attempts to reconcile the order, this is now ready to be finalized. Verbal results of no acute intracranial findings were discussed with Dr. Vargas on 07/30/2022 6:13 AM. FINDINGS: There is no evidence of acute intracranial hemorrhage or territorial infarction. No abnormal mass-effect or midline shift is seen. Glaser to white matter differentiation is well preserved. No extra-axial fluid collections are identified. The ventricles are normal in size. There is no abnormal attenuation within the brain parenchyma. The osseous structures and soft tissues are normal. Partially opacified ethmoid air cells. Small fluid level in left maxillary sinus. The mastoid air cells are well-aerated. CT/CT head for stroke IMPRESSION: No acute intracranial findings. This stroke protocol result was discussed with Dr. Vargas on 07/30/2022 6:13 AM.
--- NOTE | 2022-07-30 05:54 | ECG_ITS ---
Test Reason : cva Blood Pressure : / mmHG Vent. Rate : 061 BPM Atrial Rate : 061 BPM P-R Int : 164 ms QRS Dur : 134 ms QT Int : 486 ms P-R-T Axes : 051 -04 045 degrees QTc Int : 489 ms Normal sinus rhythm Left bundle branch block Abnormal ECG When compared to the previous EKG of No significant changes seen Referred By: Santosh Clemons Electronically Signed By:AGUILAR REYES MD
[2022-07-30 06:04] LABS: Prothrombin Time Whole Bld POC 12.5 sec (11.1-13.5)
[2022-07-30 06:18] VITALS: BP 158/75; BP 182/78; PULSE 58; PULSE 72; RESP 21; TEMP 36.5; O2SAT 98; O2SAT 99; BMI 26.9
[2022-07-30] MEDS: 0.9 % Sodium Chloride 1,000 ML 999 ML IV (06:37)
[2022-07-30 06:38] LABS: MANUAL DIFF FLAG NO
[2022-07-30 06:39] LABS: Basophils Absolute Auto 0.1 X10*3/uL (0.0-0.2); Basophils Percent Auto 1.1 % (0-2); Eosinophils Absolute Auto 0.3 X10*3/uL (0.0-0.4); Hematocrit 33.4 % (42.0-52.0); Imm Gran Abs Auto 0.03 X10*3/uL (0.00-0.03); Imm Gran Pct Auto 0.6 % (0.0-0.4); Lymphocytes Absolute Auto 1.5 X10*3/uL (1.2-4.9); Lymphocytes Percent Auto 31.3 % (20-40); Mean Corpuscular HGB Conc 32.9 g/dl (31.0-36.0); Mean Corpuscular Hemoglobin 31.9 pg (27.0-33.0); Mean Corpuscular Volume 96.8 fL (80.0-98.0); Mean Platelet Volume 9.4 fL (9.4-12.4); Monocytes Absolute Auto 0.7 X10*3/uL (0.1-1.2); Monocytes Percent Auto 14.5 % (2-11); Neutrophils Absolute Auto 2.2 x10*3/uL (2.0-8.3); Neutrophils Percent Auto 46.5 % (45-73); Platelet Count 198 X10*3/uL (160-400); Red Blood Count 3.45 X10*6/uL (4.60-5.80); Red Cell Distribution Width 13.5 % (11.0-16.0); White Blood Count 4.7 X10*3/uL (4.8-10.8)
[2022-07-30] MEDS: Morphine Sulfate 4 MG/ML CARTRIDGE IVPUSH (06:42)
[2022-07-30] MEDS: ondansetron HCL 4 MG/2 ML VIAL IVPUSH (06:42)
[2022-07-30 06:55] LABS: Glucose, Whole Blood 88 mg/dL (60-115)
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
--- NOTE | 2022-07-30 07:06 | PC.NURSE ---
this rn assumed care of pt @ 0600. pt brought into CT this rn and md at bedside. iv placed. pt transferred back to room. pt placed on bus driver/monitor, obtained VS, bloodwork obtained and sent down to lab. ekg obtained. pt medicated according to radha
[2022-07-30 07:18] VITALS: BP 153/69; PULSE 56; RESP 16; O2SAT 98
[2022-07-30 07:46] LABS: INTERNATIONAL NORM RATIO 1.1 (0.9-1.1); Prothrombin Time 12.1 SEC (10.0-13.1)
[2022-07-30 07:51] LABS: Stroke Lab Use COMPLETE
[2022-07-30 07:54] LABS: Alanine Aminotransferase 16 U/L (0-40); Albumin Level 4.1 g/dL (3.5-5.0); Alkaline Phosphatase 130 U/L (39-117); Anion Gap 10 (12-20); Aspartate Amino Transferase 30 U/L (5-37); Bilirubin Total 0.9 mg/dL (0.0-1.0); Blood Urea Nitrogen 22 mg/dL (9-16); Calcium 9.4 mg/dL (8.4-10.2); Carbon Dioxide 26 mmol/L (22-29); Chloride 110 mmol/L (96-108); Creatinine Clr Calc Pharmacy 71.5; Estimated Glomerular Filt Rate > 60; Glucose Random 93 mg/dL (60-115); Potassium 4.4 mmol/L (3.3-5.1); Sodium 142 mmol/L (135-145); Total Protein 6.4 g/dL (6.5-8.0)
[2022-07-30 07:59] VITALS: BP 143/67; PULSE 55; RESP 15; TEMP 36.5; O2SAT 100
[2022-07-30 08:00] LABS: Troponin-I High Sensitivity 8.6 ng/L (<3.5-35.0)
[2022-07-30 09:55] VITALS: BP 135/60; PULSE 57; RESP 16; TEMP 37; O2SAT 98
--- NOTE | 2022-07-30 10:09 | PC.NURSE ---
Pt resting comfortably on stretcher. vs updated. pt verbalizes no needs at this time.
[2022-07-30] MEDS: Acetaminophen 325 MG TABLET 975 MG PO (10:50)
== END 2022-07-30 10:55 | disposition home or self-care (01) ==
PROVIDERS: Internal Medicine; Emergency Provider Emergency Medicine Emergency Medical Services; PCP Internal Medicine
DX: R55 Syncope and collapse (principal); M54.50 Low back pain, unspecified; I44.7 Left bundle-branch block, unspecified; R51.9 Headache, unspecified; Z79.899 Other long term (current) drug therapy
CPT/HCPCS: 36415; 70450; 80053; 82550; 82947; 84484; 85025; 85610; 85730; 93005; 96361; 96374; 96375; 99284; 99285; J2270; J2405

== ENCOUNTER 2022-07-31 06:01 | Emergency (ER) | payer MEDICARE, MEDICAID, SELFPAY ==
[2022-07-31] VITALS (7 sets, daily range): BP systolic 146–172; BP diastolic 68–80; PULSE 57–78; RESP 16–18; TEMP 36.6; O2SAT 97–100; BMI 25.8
--- NOTE | ~2022-07-31 | CT_ITS ---
EXAMINATION: CT CERVICAL SPINE WITHOUT CONTRAST CLINICAL INFORMATION: Fall with head strike COMPARISON: September 21, 2018 TECHNIQUE: CT cervical spine with coronal and sagittal reconstructions This CT examination was performed using dose optimization techniques as appropriate, variously including the following: *Automated exposure control *Adjustment of mA and/or kV according to patient size (this includes techniques or standardized protocols for targeted exams where dose is matched to indication/reason for exam; i.e. extremities or head) *Use of iterative reconstruction technique DLP: 460.40 mGy-cm FINDINGS: No abnormal prevertebral soft tissue swelling is seen. Paraspinal muscle fat planes maintained. No acute cervical spine fracture is noted. No suspicious destructive bony lesions identified. Paranasal sinus disease as described in head CT report. Pterygoid plates and temporomandibular joints unremarkable. No apical lung lesion identified. There is disc space narrowing seen at the before meals L3-4 disc space level with prominent spurring of joints of Luschka causing some anterior neural foraminal encroachment bilaterally. There is mild narrowing of the C5-6 and C6-7 disc space levels. There is bilateral facet arthropathy at the C7-T1 level. There is degenerative spurring anterior aspect of the C1-[address]/CT cervical spine wo IV con IMPRESSION: No acute cervical spine fracture identified. Multilevel cervical spondylosis as described. Fleischner guidelines were followed.
--- NOTE | ~2022-07-31 | CT_ITS ---
EXAMINATION: CT HEAD WITHOUT CONTRAST CLINICAL INFORMATION: Fall with head strike COMPARISON: July 23, 2022, and studies dating back to February 20, 2017 TECHNIQUE: Contiguous axial imaging was performed from the skull base to vertex without intravenous administration of contrast. This CT examination was performed using dose optimization techniques as appropriate, variously including the following: *Automated exposure control *Adjustment of mA and/or kV according to patient size (this includes techniques or standardized protocols for targeted exams where dose is matched to indication/reason for exam; i.e. extremities or head) *Use of iterative reconstruction technique DLP: 721.27 mGy-cm FINDINGS: No intracranial hemorrhage is identified. No abnormal extra-axial fluid collection is seen. No significant mass effect or midline structure shift. There is prominence of ventricles, sulci, and cisterns bilaterally and symmetrically. Glaser-white matter interface is maintained. The calvarium is intact. Mastoid air cells unremarkable. There is opacification of a few ethmoid air cells as well as some sinus disease with small air-fluid level about the left maxillary sinus. No orbital floor/wall fracture appreciated. Pterygoid plates intact. Temporomandibular joints unremarkable. CT/CT head/brain wo IV con IMPRESSION: No acute intracranial pathology. Sinus disease.
--- NOTE | 2022-07-31 06:22 | ECG_ITS ---
Test Reason : SYNCOPE Blood Pressure : / mmHG Vent. Rate : 068 BPM Atrial Rate : 068 BPM P-R Int : 170 ms QRS Dur : 134 ms QT Int : 476 ms P-R-T Axes : 050 -03 057 degrees QTc Int : 506 ms Normal sinus rhythm Possible Left atrial enlargement Left bundle branch block Abnormal ECG When compared with ECG of 30-JUL-2022 06:20, No significant change was found Referred By: Generic ED Physician Electronically Signed By:AGUILAR REYES MD
--- NOTE | 2022-07-31 06:44 | ED.FALL ---
HPI - Fall General Chief Complaint: Fall Stated Complaint: dizziness Time Seen by Provider: 07/31/22 06:35 Source: patient, EMS and old records reviewed Mode of arrival: EMS Limitations: no limitations History of Present Illness HPI Narrative: 67-year-old male with a PMH significant for CAD s/p stent placement, cardiomyopathy, HTN, gout, PUD, LBBB, hx rhabdomyolysis, hx of partial gastrectomy & homelessness who was seen here yesterday s/p fall w/ headstrike presents back to the ER today via EMS for another fall w/ headstrike, preceded by acute onset of dizziness. Patient states he was discharged around noon yesterday and was walking around all day in the heat. This morning he was walking and suddenly became dizzy. He made it to the nearst D&D and then fell and hit head his head. No LOC. Not on anticoagulation. He continues to feel dizzy and weak. Dizziness is worse with position changes. No chest pain or SOB. No focal weakness. MD complaint: fall Onset (ago): hour(s) (1) Fall from: standing Fall witnessed: yes, by bystander Place fall occurred: street Loss of consciousness: none Prolonged down time: no Symptoms prior to fall: lightheadedness and dizziness Context: history of frequent falls Location of injury: head Associated symptoms (after fall): lightheaded Related Data Home Medications Medication Instructions Recorded Confirmed allopurinol 100 mg tablet 100 mg PO DAILY@1700 08/07/21 07/31/22 isosorbide mononitrate 30 mg 30 mg PO DAILY@0808/07/21 07/31/22 tablet,extended release 24 hr losartan 25 mg tablet 25 mg PO DAILY@0808/07/21 07/31/22 metoprolol succinate 50 mg 75 mg PO DAILY@0808/07/21 07/31/22 tablet,extended release 24 hr acetaminophen 500 mg tablet 1,000 mg PO TID PRN pain 02/16/22 07/31/22 fluticasone propionate 50 1 spray intranasal DAILY PRN 05/16/22 07/31/22 mcg/actuation nasal Allergy Symptoms spray,suspension aspirin 81 mg tablet,delayed 81 mg PO DAILY 06/04/22 07/31/22 release atorvastatin 80 mg tablet 80 mg PO DAILY 06/04/22 07/31/22 omeprazole 40 mg capsule,delayed 40 mg PO BID 07/23/22 07/31/22 release sucralfate 100 mg/mL oral 10 ml PO QIDACHS 07/23/22 07/31/22 suspension (Carafate) Allergies Allergy/AdvReac Type Severity Reaction Status Date / Time polyethylene glycol Allergy Itching Verified 07/23/22 16:49 Iodinated Contrast Media AdvReac Severe PARALYSIS/N Verified 07/23/22 16:49 [CONTRAST, IV] UMBNESS Review of Systems Review of Systems: Yes all other systems are reviewed and are negative [facility] Past Medical History Medical History Airway polyps Atypical chest pain Chest pain Coronary artery disease Gout Hypertension Incarcerated left inguinal hernia Ischemic heart disease due to coronary artery obstruction Left bundle branch block Left bundle branch block NICM (nonischemic cardiomyopathy) No known health problems Peptic ulcer disease Syncope Surgical History H/O heart artery stent History of partial gastrectomy Family History Family History Father Myocardial infarction Social History Social History Household Members: Other Household Members Other:: with friends, staying with friends Housing: Other Housing Other:: staying with a friend and financial assistance to find a hotel room Do you presently have visiting nurse or other home services: No Alcohol intake: never Patient Tobacco Use Status: Never used Tobacco Smoked in Last 30 Days: No Second Hand Smoke Exposure: Yes (friends he stays with smoke outside) Use of substances other than those prescribed or required for medical reasons: No Any prior treatment program specific to substance use: No Advance Directives: Yes Advance Directives on File: Yes Advance Directives Date on File: 05/20/22 service: No Current occupational status: unemployed Physical Exam Vital Signs: Vital Signs: Last Vital Signs Temp 98.0 F 08/01/22 14:00 Pulse 67 08/01/22 14:24 Resp 16 08/01/22 14:00 BP 120/74 08/01/22 14:24 Pulse Ox 100 08/01/22 14:00 O2 Del Method Room Air 08/01/22 14:00 BMI result Body Mass Index 25.8 Appearance: Alert. Oriented X3. No acute distress. Head: normocephalic, atraumatic. Eyes: Pupils equal, round and reactive to light. ENT: Pharynx normal. No tonsillar swelling or exudate. Neck: Normal inspection. Neck supple. CVS: Normal heart rate and rhythm. Pulses normal. Respiratory: No respiratory distress. Breath sounds normal. Abdomen: Soft and nontender. +BS x4 Skin: Skin warm and dry. Normal skin color. Normal skin turgor. No rashes. Extremities: No lower extremity edema. No joint swelling. Neuro/psych: Oriented X 3. No motor deficit. No sensory deficit. CN II-XII intact. Normal speech and cognition. Normal finger to nose and heel to wynn bilaterally. Course Reevaluation(s) Reevaluation #1: Physician observation continued, nursing reports patient is still complaining of dizziness. Orthostatic vital signs obtain, patient is not orthostatic. Patient had a negative CT head exam yesterday. All other electrolytes are within normal limits. Negative troponin. Patient was seen by Physical therapy who recommended short-term rehab. However Case Management was seen by patient and that patient does not qualify for short-term rehab at this time as he has not had a 3 night midnight stay there for Medicare waiver has ended. Patient is on well come back to the [facility] due to several reasons including compulsive lying, faking fainting episodes, and counts of arson. Given negative orthostatic vital signs, and patient tolerating p.o.. Is not indicated to give IV hydration at this time. Anticipated discharge will likely be tomorrow, patient will be provided with a list of shelters and food pierson as well as bus passes. Physical therapy re-evaluation not required. Physical therapy no says that patient would benefit but this is not required, given Case Management unable to place and restrictions with Medicare waiver, there is no indication that patient needs to stay in the emergency department or and an overflow unit as patient is medically cleared. Time: 15:08 Reevaluation #2: Discussion with nurse patient is refusing to leave despite there is no medical indication that patient needs to stay here. Time: 17:25 Medications Administered Generic Name Dose Route Start Last Admin Trade Name Freq PRN Reason Stop Dose Admin Acetaminophen 975 mg 07/31/22 22:37 08/01/22 06:21 Acetaminophen 325 Mg Tablet PO 975 mg TID PRN Administration pain Allopurinol 100 mg 08/01/22 17:00 08/01/22 17:21 Allopurinol 100 Mg Tablet PO 100 mg DAILY@1700 [facility] Administration Aspirin 81 mg 08/01/22 09:00 08/01/22 08:26 Aspirin Enteric Coated 81 Mg Tablet. PO 81 mg DAILY BRITTANY Administration Atorvastatin Calcium 80 mg 08/01/22 09:00 08/01/22 08:26 Atorvastatin Calcium 80 Mg Tablet PO 80 mg DAILY BRITTANY Administration Isosorbide Mononitrate 30 mg 08/01/22 08:00 08/01/22 08:25 Isosorbide Mononitrate 30 Mg Tab.Er.24h PO 30 mg DAILY@0800 [facility] Administration Protocol Losartan Potassium 25 mg 08/01/22 08:00 08/01/22 10:38 Losartan Potassium 25 Mg Tablet PO 25 mg DAILY@0800 [facility] Administration Protocol Metoprolol Succinate 75 mg 08/01/22 08:00 08/01/22 08:25 Metoprolol Succinate Er 25 Mg Tab.Er.24h PO 75 mg DAILY@0800 [facility] Administration Protocol Omeprazole 40 mg 08/01/22 06:30 08/01/22 16:46 Omeprazole 40 Mg Capsule. PO 40 mg BID@0630,1630 [facility] Administration Sucralfate 1 gm 08/01/22 07:30 08/01/22 17:20 Sucralfate Oral Suspension 1 Gm/10 Ml Oral.Susp PO Not Given QIDACHS [facility] Discontinued Medications Generic Name Dose Route Start Last Admin Trade Name Freq PRN Reason Stop Dose Admin Sodium Chloride 1,000 mls @ 999 mls/hr 07/31/22 07:00 07/31/22 08:16 Ns IVCONT 07/31/22 08:00 Infused .Q1H1M BRITTANY Infusion Medical Decision Making Medical Decision Making MDM Narrative: 67-year-old male with a PMH significant for CAD s/p stent placement, cardiomyopathy, HTN, gout, PUD, LBBB, hx rhabdomyolysis, hx of partial gastrectomy & homelessness who was seen here yesterday s/p fall w/ headstrike presents back to the ER today via EMS for another fall w/ headstrike, preceded by acute onset of dizziness. VSS on arrival. Exam unremarkable. Neurologically intact. Normal cerebellar exam. High on the differential is dehydration given he is homeless and it was 90 degrees yesterday. lab workup unremarkable, orthostatics negative. no ekg changes. ct head/c-spine ok. feels improved after fluids. will plan to have PT see him for recurrent falls and get case management to see him for potential rehab. physician observation started at 11:30 Differential Diagnosis Differential Diagnoses: The differential diagnosis associated with the presentation includes dehydration, electrolyte abnormality, vertigo, posterior stroke, rhabdomyolysis, doubt ICH/SAH s/p fall Admission/Observation Consideration of admission/observation: Escalation of care including admission/observation considered 2nd visit in 24 hours for fall/weakness/dizziness in patient with cardiac history. considered admission Lab Data MDM Lab Attestation statement: I reviewed the patient's lab results. stable normocytic anemia, and leukopenia, tropnon negative, and no major metabolic derangement 07/31/22 07:36 07/31/22 07:37 Labs: Lab Results 07/31/22 07/31/22 07/31/22 Range/Units 07:36 07:36 07:36 WBC 4.2 L (4.8-10.8) X10*3/uL RBC 3.37 L (4.60-5.80) X10*6/uL Hgb 10.8 L (14.0-18.0) g/dl Hct 32.3 L (42.0-52.0) % MCV 95.8 (80.0-98.0) fL MCH 32.0 (27.0-33.0) pg MCHC 33.4 (31.0-36.0) g/dl RDW 13.8 (11.0-16.0) % Plt Count 205 (160-400) X10*3/uL MPV 9.6 (9.4-12.4) fL Immature Gran % (Auto) 0.0 (0.0-0.4) % Neut % (Auto) 53.2 (45-73) % Lymph % (Auto) 28.1 (20-40) % Scurry % (Auto) 12.5 H (2-11) % Eos % (Auto) 5.5 H (0-4) % Baso % (Auto) 0.7 (0-2) % Lymph # (Auto) 1.2 (1.2-4.9) X10*3/uL Scurry # (Auto) 0.5 (0.1-1.2) X10*3/uL Eos # (Auto) 0.2 (0.0-0.4) X10*3/uL Baso # (Auto) 0.0 (0.0-0.2) X10*3/uL Abs Immat Gran (auto) 0.00 (0.00-0.03) X10*3/uL Absolute Neuts (auto) 2.2 (2.0-8.3) x10*3/uL Absolute Nucleated RBC 0.000 (0.0-0.012) X10*3/uL Nucleated RBC % (auto) 0.0 (0.0-0.2) /100WBC Sodium (135-145) mmol/L Potassium (3.3-5.1) mmol/L Chloride (96-108) mmol/L Carbon Dioxide (22-29) mmol/L Anion Gap (12-20) BUN (9-16) mg/dL Creatinine (0.5-1.4) mg/dL Estim Creat Clear Calc Estimated GFR Random Glucose (60-115) mg/dL Calcium (8.4-10.2) mg/dL Troponin I High Sens 6.1 (<3.5-35.0) ng/L Ethyl Alcohol Cancelled COVID-19 (JAMAAL) (Negative) COVID-19 Clin Com 07/31/22 07/31/22 Range/Units 07:37 13:03 WBC (4.8-10.8) X10*3/uL RBC (4.60-5.80) X10*6/uL Hgb (14.0-18.0) g/dl Hct (42.0-52.0) % MCV (80.0-98.0) fL MCH (27.0-33.0) pg MCHC (31.0-36.0) g/dl RDW (11.0-16.0) % Plt Count (160-400) X10*3/uL MPV (9.4-12.4) fL Immature Gran % (Auto) (0.0-0.4) % Neut % (Auto) (45-73) % Lymph % (Auto) (20-40) % Scurry % (Auto) (2-11) % Eos % (Auto) (0-4) % Baso % (Auto) (0-2) % Lymph # (Auto) (1.2-4.9) X10*3/uL Scurry # (Auto) (0.1-1.2) X10*3/uL Eos # (Auto) (0.0-0.4) X10*3/uL Baso # (Auto) (0.0-0.2) X10*3/uL Abs Immat Gran (auto) (0.00-0.03) X10*3/uL Absolute Neuts (auto) (2.0-8.3) x10*3/uL Absolute Nucleated RBC (0.0-0.012) X10*3/uL Nucleated RBC % (auto) (0.0-0.2) /100WBC Sodium 142 (135-145) mmol/L Potassium 3.9 (3.3-5.1) mmol/L Chloride 111 H (96-108) mmol/L Carbon Dioxide 22 (22-29) mmol/L Anion Gap 13 (12-20) BUN 18 H (9-16) mg/dL Creatinine 0.90 (0.5-1.4) mg/dL Estim Creat Clear Calc 81.1 Estimated GFR > 60 Random Glucose 91 (60-115) mg/dL Calcium 9.3 (8.4-10.2) mg/dL Troponin I High Sens (<3.5-35.0) ng/L Ethyl Alcohol < 10 COVID-19 (JAMAAL) Negative (Negative) COVID-19 Clin Com See Note Independent Interpretation I performed an independent interpretation of an: EKG and CT Scan Interpretation: EKG with NSR, HR 68 bpm, LBBB which is old compared to prior Radiology Impression Discussion of test interpretation with radiology: I have reviewed the radiologist's reading. Radiologist Impression: ?CT/CT head/brain wo IV con IMPRESSION: No acute intracranial pathology. ? Sinus disease CT/CT cervical spine wo IV con IMPRESSION: No acute cervical spine fracture identified. ? Multilevel cervical spondylosis as described.? Independent Historian Clinical information obtained from an independent historian. History obtained from or confirmed by: EMS External Record Review External record reviewed: Outpatient record, Prior outpatient labs and Prior outpatient radiology Tests considered The following testing was considered but not selected: mri considered but posterior cva low on the differential neuro exam unremarkable. Prescription Management I considered prescription management with: Other (meclizine) Chronic Conditions Patient?s care impacted by: Other (CAD, NICOM) Social Determinants Patient?s care significantly limited by Social Determinants of Health including: Inadequate housing, Unemployment and Other Social Determinant of Health Critical Care Time Critical Care Time Critical Care Time: No Discharge Plan Discharge Clinical Impression: Dizziness, Recurrent falls Patient Disposition: Home, Self-Care Additional Instructions: Please continue to stay well hydrated over the next couple days. Case Management had given you a list of shelters and other resources, please utilize this list. Follow-up with your primary care physician. If any new or worsening symptoms occur please return for re-evaluation. Prescriptions: No Action acetaminophen 500 mg tablet 1,000 mg PO TID PRN (Reason: pain) fluticasone propionate 50 mcg/actuation [place],Suspension 1 spray INTRANASAL DAILY PRN (Reason: Allergy Symptoms) Rx Instructions: administer into each nostril allopurinol 100 mg Tablet 100 mg PO DAILY@1700 losartan 25 mg Tablet 25 mg PO DAILY@0800 isosorbide mononitrate 30 mg Tablet Extended Release 24 Hr 30 mg PO DAILY@0800 metoprolol succinate 50 mg Tablet Extended Release 24 Hr 75 mg PO DAILY@0800 atorvastatin 80 mg tablet 80 mg PO DAILY aspirin 81 mg tablet,delayed release (DR/EC) 81 mg PO DAILY sucralfate [Carafate] 100 mg/mL suspension 10 ml PO QIDACHS omeprazole 40 mg capsule,delayed release(DR/EC) 40 mg PO BID
[2022-07-31] MEDS: 0.9 % Sodium Chloride 1,000 ML 999 ML IVCONT (07:04)
[2022-07-31 07:47] LABS: MANUAL DIFF FLAG NO
[2022-07-31 07:50] LABS: Basophils Percent Auto 0.7 % (0-2); Eosinophils Absolute Auto 0.2 X10*3/uL (0.0-0.4); Eosinophils Percent Auto 5.5 % (0-4); Hematocrit 32.3 % (42.0-52.0); Hemoglobin 10.8 g/dl (14.0-18.0); Lymphocytes Absolute Auto 1.2 X10*3/uL (1.2-4.9); Lymphocytes Percent Auto 28.1 % (20-40); Mean Corpuscular HGB Conc 33.4 g/dl (31.0-36.0); Mean Corpuscular Volume 95.8 fL (80.0-98.0); Mean Platelet Volume 9.6 fL (9.4-12.4); Monocytes Absolute Auto 0.5 X10*3/uL (0.1-1.2); Monocytes Percent Auto 12.5 % (2-11); Neutrophils Absolute Auto 2.2 x10*3/uL (2.0-8.3); Neutrophils Percent Auto 53.2 % (45-73); Platelet Count 205 X10*3/uL (160-400); Red Blood Count 3.37 X10*6/uL (4.60-5.80); Red Cell Distribution Width 13.8 % (11.0-16.0); White Blood Count 4.2 X10*3/uL (4.8-10.8)
--- NOTE | 2022-07-31 08:16 | PC.NURSE ---
iv infiltrated, iv site appears puffy. iv dc, provider aware. pt given po fluids for now. tolerating po without issue.
[2022-07-31 08:23] LABS: Troponin-I High Sensitivity 6.1 ng/L (<3.5-35.0)
[2022-07-31 08:37] LABS: Anion Gap 13 (12-20); Blood Urea Nitrogen 18 mg/dL (9-16); Calcium 9.3 mg/dL (8.4-10.2); Carbon Dioxide 22 mmol/L (22-29); Chloride 111 mmol/L (96-108); Creatinine Clr Calc Pharmacy 81.1; Estimated Glomerular Filt Rate > 60; Ethanol < 10 mg/dL; Glucose Random 91 mg/dL (60-115); Potassium 3.9 mmol/L (3.3-5.1); Sodium 142 mmol/L (135-145)
[2022-07-31 13:39] LABS: COVID-19 Test Negative (Negative); IDNOW Serial# 08D9AD1C
--- NOTE | 2022-07-31 14:07 | MHC.CM.ED ---
Received case management consult from Nathaly GAMEZ. Patient came to ER d/t dizziness. Physical therapy eval completed. Acute rehab is recommended. Patient is well known to case management due to ER visits. Copy of HCP verified to be on file. Patient received 3 Moderna vaccines. Referral sent to all 3 acute rehabs at this time. Continue to monitor for d/c needs.
--- NOTE | 2022-07-31 17:40 | PC.NURSE ---
patient ambulated to the bathroom with strong independent gait
--- NOTE | 2022-07-31 21:49 | PC.NURSE ---
Pt has no meds ordered at all. He has a hx of HTN and looks like he takes 3 BP meds at home per the H&P. His last BP is 161/76. Provider Vinod notified and pharmacy reconciled home meds. made aware. Pt is A&OX3, pleasant, in bed sleeping. He is on ra. safety prec maintained.
[2022-08-01] MEDS: Acetaminophen 325 MG TABLET 975 MG PO (06:21)
[2022-08-01] MEDS: Omeprazole 40 MG CAPSULE.DR PO ×2 (06:21→16:46)
[2022-08-01 06:28] VITALS: BP 149/61; PULSE 59; RESP 16; TEMP 36.6; O2SAT 98
[2022-08-01] MEDS: Isosorbide Mononitrate 30 MG TAB.ER.24H PO (08:25)
[2022-08-01] MEDS: Metoprolol Succinate ER 25 MG TAB.ER.24H 75 MG PO (08:25)
[2022-08-01] MEDS: Aspirin Enteric Coated 81 MG TABLET.DR PO (08:26)
[2022-08-01] MEDS: Atorvastatin Calcium 80 MG TABLET PO (08:26)
--- NOTE | 2022-08-01 08:32 | MHC.CM.PN ---
EMR REVIEWED, CM REVIEWED AR REFERRAL, PT DECLINED BY ALL 3 ACUTE REHABS WHO REPORT HE DOES NOT HAVE AN AR DX, BROAD REFERRAL PLACED FOR STR, C TO REVIEW PREFERRED SNF'S ONCE PT HAS BED OFFERS, CM WILL CONT TO FOLLOW.
--- NOTE | 2022-08-01 09:39 | PC.NURSE ---
Assumed care of patient at 0645. Pt A&Ox4 and cooperative with care. Pt continues to endorse dizziness, Physicain Aleta Teixeira made aware. Education provided to patient to change position slowly and ring for help if needed, bed alarm on. Pharmacy contacted at 0845 for missing losartan from [facility], pharm stated would be brought up as soon as possible. Pt voiding in urinal. VSS, all safety measures in place.
[2022-08-01] MEDS: Losartan Potassium 25 MG TABLET PO (10:38)
[2022-08-01] MEDS: Sucralfate Oral Suspension 1 GM/10 ML ORAL.SUSP PO (10:38)
[2022-08-01 10:40] VITALS: BP 128/60; PULSE 61
--- NOTE | 2022-08-01 12:23 | PC.NURSE ---
Pt refusing bed alarm. Education provided to patient regarding fall risks and safety, pt states he will ring for help if he needs to get up or use the urinal.
--- NOTE | 2022-08-01 12:48 | MHC.CM.PN ---
CM MET W/PT/ ED PROVIDER AND RN SEPERATELY TO DISCUSS CASE, THEY ARE AWARE PT NOT QUALIFYING FOR STR HE IS NOT ADMITTED AND THEREFORE WILL NOT HAVE A 3MIDNIIGHT STAY AND MEDICARE WAIVER HAS ENDED. PT IS UNWELCOME BACK AT THE MEDICAL [facility]ENTER WHICH CM CONFIRMED AT APPROX 12PM FOR SEVERAL REASONS INCLUDING COMPULSIVE LYING AND REPORTING HE SAVED A CHILD/ADULT OR MULTIPLE PEOPLES LIVES EVERYT TIME HE RETURN TO PROGRAM, FAKE FAINTING EPISODES, MULTIPLE COUNTS OF SIDDHARTH W/TWO RECENT AND PT HAS BEEN SERVED BY COURTS AND IS BEING SUED BY THE [facility] FOR TWO COUNTS OF ARSON, THE MEDICAL [facility]ENTER ALSO REPORT THEY SPOKE TO PT'S PRIMARY CONTACT VAISHALI WHO REPORTS SHE DOES NOT WANT PT AROUND HER OR HER CHILDREN, PT WILL LIE, HURT AND TURN AGAINST YOU IF YOU DONT AGREE W/HIM AND FINALLY THAT PT DOES HAVE A THING FOR TEENAGE GIRLS, THE MEDICAL [facility]ENTER DOES NOT FEEL IT IS SAFE FOR THE OTHER CLIENTS WHO ARE THERE AND WHO FREQUENT TISH'S KITCHEN PT HAS A HERO COMPLEX AND THEY ARE CONCERNED HE WILL START A FIRE OR CREATE A SCENERIO WHERE THAT WOULD PUT STAFF/CLIENTS/ETC AT RISK. THE [facility]ENTER REPORTS THEY ALSO HAVE SERIOUS CONCERNS ABOUT PT'S MENTAL HEALTH. ABOVE INFO GIVEN TO ED PROVIDER WHO REPORTS PLAN WILL BE FOR P.T. TO REVISI PT, , ORTHOSTATIC BP'S, R/O DEHYDRATION AND CARE TEAM D/T MENTAL HEALTH CONCERNS. ANTIC PT WILL D/C BY TOMORROW 08/02, PT PROVIDED W/LIST OF SHELTERS/FOOD BLANCO AND BUS PASSES. PT AWARE IF HE HAS AN ADDRESS TO D/C TO PT CAN BE PROVIDED W/A [place].
[2022-08-01 14:00] VITALS: BP 126/60; PULSE 56; RESP 16; TEMP 36.7; O2SAT 100
[2022-08-01 14:24] VITALS: BP 120/74; BP 126/60; BP 126/64; PULSE 56; PULSE 57; PULSE 67
[2022-08-01] MEDS: allopurinoL 100 MG TABLET PO (17:21)
== END 2022-08-01 17:57 | disposition home or self-care (01) ==
PROVIDERS: Physician Assistant; Emergency Provider Emergency Medicine; PCP Internal Medicine
DX: R42 Dizziness and giddiness (principal); R29.6 Repeated falls; Z20.822 Contact with and (suspected) exposure to COVID-19; I10 Essential (primary) hypertension; Z79.02 Long term (current) use of antithrombotics/antiplatelets; Z79.899 Other long term (current) drug therapy; Z79.82 Long term (current) use of aspirin
CPT/HCPCS: 70450; 72125; 80048; 80307; 84484; 85025; 87635; 93005; 97162; 99285

== ENCOUNTER 2022-08-06 03:31 | Emergency (ER) | payer MEDICARE, MEDICAID, SELFPAY ==
--- NOTE | ~2022-08-06 | XR_ITS ---
EXAMINATION: XR CHEST CLINICAL INFORMATION: Short of breath COMPARISON: 07/23/2022 TECHNIQUE: Frontal view of the chest was obtained. FINDINGS: The lungs are well expanded. There is no focal consolidation, edema, or effusion. No pneumothorax. The cardiomediastinal silhouette is within normal limits. No acute osseous abnormality. Mild degenerative changes in the spine. XR/XR chest 1V IMPRESSION: No acute pulmonary disease.
[2022-08-06 03:36] VITALS: BP 163/93; PULSE 66; O2SAT 100
[2022-08-06 03:38] VITALS: BP 162/74; PULSE 65; RESP 12; TEMP 36.9; O2SAT 99; BMI 27.5
[2022-08-06 03:40] VITALS: BP 162/74; PULSE 66; RESP 18; TEMP 36.9; O2SAT 98
--- NOTE | 2022-08-06 03:48 | PC.NURSE ---
Pt ca&ox3, no signs of distress. Pt resting comfortably. Will continue to monitor.
[2022-08-06 04:37] VITALS: BP 142/68; PULSE 60; RESP 18; O2SAT 98
--- NOTE | 2022-08-06 05:01 | ECG_ITS ---
Test Reason : SOB Blood Pressure : / mmHG Vent. Rate : 060 BPM Atrial Rate : 060 BPM P-R Int : 152 ms QRS Dur : 130 ms QT Int : 468 ms P-R-T Axes : 043 -05 074 degrees QTc Int : 468 ms Normal sinus rhythm Left bundle branch block Abnormal ECG When compared with ECG of 31-JUL-2022 07:04, No significant change was found Referred By: Lidia Delarosa Electronically Signed By:Pio Bazan
--- NOTE | 2022-08-06 05:01 | ED_ITS ---
HPI - General Adult General Chief complaint: General Medical Stated complaint: difficulty swallowing Time Seen by Provider: 08/06/22 04:58 Source: patient Mode of arrival: EMS Limitations: no limitations History of Present Illness HPI narrative: Patient comes to the emergency room complaining of shortness of breath since yesterday. Denies cough, no fever chills, no chest pain denies lower extremity edema. Related Data Home Medications Medication Instructions Recorded Confirmed allopurinol 100 mg tablet 100 mg PO DAILY@1700 08/07/21 07/31/22 isosorbide mononitrate 30 mg 30 mg PO DAILY@0800 08/07/21 07/31/22 tablet,extended release 24 hr losartan 25 mg tablet 25 mg PO DAILY@0808/07/21 07/31/22 metoprolol succinate 50 mg 75 mg PO DAILY@79908/07/21 07/31/22 tablet,extended release 24 hr acetaminophen 500 mg tablet 1,000 mg PO TID PRN pain 02/16/22 07/31/22 fluticasone propionate 50 1 spray intranasal DAILY PRN 05/16/22 07/31/22 mcg/actuation nasal Allergy Symptoms spray,suspension aspirin 81 mg tablet,delayed 81 mg PO DAILY 06/04/22 07/31/22 release atorvastatin 80 mg tablet 80 mg PO DAILY 06/04/22 07/31/22 omeprazole 40 mg capsule,delayed 40 mg PO BID 07/23/22 07/31/22 release sucralfate 100 mg/mL oral 10 ml PO QIDACHS 07/23/22 07/31/22 suspension (Carafate) Allergies Allergy/AdvReac Type Severity Reaction Status Date / Time polyethylene glycol Allergy Itching Verified 07/23/22 16:49 Iodinated Contrast Media AdvReac Severe PARALYSIS/N Verified 07/23/22 16:49 [CONTRAST, IV] UMBNESS Review of Systems Review of Systems: Constitutional : No Weight loss, No Fever, No Chills, No Night Sweats, No Fatigue, No Malaise ENT/Mouth : No Hearing loss, No Ear Pain, No Nasal Congestion, No Sinus Pain, No Hoarseness, No sore throat, No Rhinorrhea, No Swallowing Difficulty Eyes: No Eye Pain, No Swelling, No Redness, No Foreign Body, No Discharge, No Vision Changes Cardiovascular : No Chest Pain, No SOB, No Dyspnea on Exertion, No Orthopnea, No Edema, No Palpitations Respiratory : No Cough, No Sputum, No Wheezing, No Smoke Exposure, complaining of nonspecific Dyspnea Gastrointestinal : No Nausea, No Vomiting, No Diarrhea, No Constipation, No abdominal Pain, No Hematochezia, No Melena Genitourinary : no irregular bleeding, No Dysuria, No Urinary Frequency, No Hematuria, No Urinary Incontinence, No Urgency, No Flank Pain, No Urinary Flow Changes, No Hesitancy Musculoskeletal : No joint pain, No Myalgias, No Joint Swelling Skin : No Skin Lesions, No rash Neuro : No Weakness, No Numbness, No Paresthesias, No Loss of Consciousness, No Dizziness, No Headache Psych : No Anxiety/Panic, No Depression, No SI/HI/AH/VH, No Social Issues, Heme/Lymph: No Bruising, No Bleeding,No Lymphadenopathy Endocrine : No Polyuria, No Polydipsia, No Temperature Intolerance PMFSH Past Medical History Medical History Airway polyps Atypical chest pain Chest pain Coronary artery disease Gout Hypertension Incarcerated left inguinal hernia Ischemic heart disease due to coronary artery obstruction Left bundle branch block Left bundle branch block NICM (nonischemic cardiomyopathy) No known health problems Peptic ulcer disease Syncope Surgical History H/O heart artery stent History of partial gastrectomy Family History Family History Father Myocardial infarction Social History Social History Household Members: Other Household Members Other:: with friends, staying with friends Housing: Other Housing Other:: staying with a friend and financial assistance to find a hotel room Do you presently have visiting nurse or other home services: No Alcohol intake: never Patient Tobacco Use Status: Never used Tobacco Smoked in Last 30 Days: No Second Hand Smoke Exposure: Yes (friends he stays with smoke outside) Use of substances other than those prescribed or required for medical reasons: No Advance Directives: Yes Advance Directives on File: Yes Advance Directives Date on File: 05/20/22 service: No Current occupational status: unemployed Physical Exam ED Vital Signs: Vital Signs - 24 hr 08/06/22 03:38 08/06/22 03:40 08/06/22 04:37 Temperature 98.5 F 98.5 F Pulse Rate 65 66 60 Respiratory Rate 12 18 18 Blood Pressure 162/74 H 162/74 H 142/68 H Pulse Oximetry 99 98 98 Oxygen Delivery Method Room Air Room Air Room Air BMI result Body Mass Index 27.5 Const Other: Appearance: Alert. Oriented X3. No acute distress. Eyes: Pupils equal, round and reactive to light. ENT: Pharynx normal. Neck: Normal inspection. Neck supple. No lymph nodes noted. No crepitus CVS: Normal heart rate and rhythm. Pulses normal. Normal S1 and S2 Respiratory: No respiratory distress. Breath sounds normal. No Wheezing. No rales Abdomen: Soft and nontender. No rigidity. No distention. Skin: Skin warm and dry. Normal skin color. Normal skin turgor. Extremities: No lower extremity edema. No Lacerations. No Rash Neuro: Oriented X 3. No motor deficit. No sensory deficit. Moving all extremities. No slurred speech. CN 2 through 12 grossly intact Psych: calm, cooperative, normal affect Course Course Course Narrative: Patient's labs and imaging pending Medical Decision Making Medical Decision Making [facility] Narrative: -chest x-ray does not show any abnormalities -stable labs -patient tested negative for COVID-19 -patient likely having viral bronchitis Lab Data [facility] Lab Attestation statement: I reviewed the patient's lab results. 08/06/22 05:19 08/06/22 05:20 Labs: Lab Results 08/06/22 08/06/22 08/06/22 Range/Units 05:19 05:20 05:20 WBC 4.4 L (4.8-10.8) X10*3/uL RBC 3.50 L (4.60-5.80) X10*6/uL Hgb 11.1 L (14.0-18.0) g/dl Hct 33.7 L (42.0-52.0) % MCV 96.3 (80.0-98.0) fL MCH 31.7 (27.0-33.0) pg MCHC 32.9 (31.0-36.0) g/dl RDW 13.9 (11.0-16.0) % Plt Count 213 (160-400) X10*3/uL MPV 8.8 L (9.4-12.4) fL Immature Gran % (Auto) 0.2 (0.0-0.4) % Neut % (Auto) 49.4 (45-73) % Lymph % (Auto) 30.6 (20-40) % Leon % (Auto) 12.5 H (2-11) % Eos % (Auto) 6.6 H (0-4) % Baso % (Auto) 0.7 (0-2) % Lymph # (Auto) 1.4 (1.2-4.9) X10*3/uL Leon # (Auto) 0.6 (0.1-1.2) X10*3/uL Eos # (Auto) 0.3 (0.0-0.4) X10*3/uL Baso # (Auto) 0.0 (0.0-0.2) X10*3/uL Abs Immat Gran (auto) 0.01 (0.00-0.03) X10*3/uL Absolute Neuts (auto) 2.2 (2.0-8.3) x10*3/uL Absolute Nucleated RBC 0.000 (0.0-0.012) X10*3/uL Nucleated RBC % (auto) 0.0 (0.0-0.2) /100WBC VBG pH (7.32-7.43) VBG pCO2 mmHg VBG pO2 mmHg VBG HCO3 (22-26) mmol/L VBG O2 Saturation % VBG Base Excess mmol/L Sodium 142 (135-145) mmol/L Potassium 4.4 (3.3-5.1) mmol/L Chloride 108 (96-108) mmol/L Carbon Dioxide 26 (22-29) mmol/L Anion Gap 12 (12-20) BUN 21 H (9-16) mg/dL Creatinine 0.87 (0.5-1.4) mg/dL Estim Creat Clear Calc 83.9 Estimated GFR > 60 Random Glucose 98 (60-115) mg/dL Calcium 9.6 (8.4-10.2) mg/dL Troponin I High Sens 6.5 (<3.5-35.0) ng/L B-Natriuretic Peptide (<100) pg/mL COVID-19 (JAMAAL) (Negative) COVID-19 Clin Com 08/06/22 08/06/22 08/06/22 Range/Units 05:20 05:20 05:21 WBC (4.8-10.8) X10*3/uL RBC (4.60-5.80) X10*6/uL Hgb (14.0-18.0) g/dl Hct (42.0-52.0) % MCV (80.0-98.0) fL MCH (27.0-33.0) pg MCHC (31.0-36.0) g/dl RDW (11.0-16.0) % Plt Count (160-400) X10*3/uL MPV (9.4-12.4) fL Immature Gran % (Auto) (0.0-0.4) % Neut % (Auto) (45-73) % Lymph % (Auto) (20-40) % Leon % (Auto) (2-11) % Eos % (Auto) (0-4) % Baso % (Auto) (0-2) % Lymph # (Auto) (1.2-4.9) X10*3/uL Leon # (Auto) (0.1-1.2) X10*3/uL Eos # (Auto) (0.0-0.4) X10*3/uL Baso # (Auto) (0.0-0.2) X10*3/uL Abs Immat Gran (auto) (0.00-0.03) X10*3/uL Absolute Neuts (auto) (2.0-8.3) x10*3/uL Absolute Nucleated RBC (0.0-0.012) X10*3/uL Nucleated RBC % (auto) (0.0-0.2) /100WBC VBG pH 7.38 (7.32-7.43) VBG pCO2 46 mmHg VBG pO2 40 mmHg VBG HCO3 28 H (22-26) mmol/L VBG O2 Saturation 61.0 % VBG Base Excess 2.7 mmol/L Sodium (135-145) mmol/L Potassium (3.3-5.1) mmol/L Chloride (96-108) mmol/L Carbon Dioxide (22-29) mmol/L Anion Gap (12-20) BUN (9-16) mg/dL Creatinine (0.5-1.4) mg/dL Estim Creat Clear Calc Estimated GFR Random Glucose (60-115) mg/dL Calcium (8.4-10.2) mg/dL Troponin I High Sens (<3.5-35.0) ng/L B-Natriuretic Peptide 45 (<100) pg/mL COVID-19 (JAMAAL) Negative (Negative) COVID-19 Clin Com See Note Radiology Impression Discussion of test interpretation with radiology: I have reviewed the radiologist's reading. Radiologist Impression: FINDINGS: The lungs are well expanded. There is no focal consolidation, edema, or effusion. No pneumothorax. The cardiomediastinal silhouette is within normal limits. No acute osseous abnormality. Mild degenerative changes in the spine. XR/XR chest 1V IMPRESSION: No acute pulmonary disease. ? Discharge Plan Discharge Clinical Impression: Acute viral bronchitis Patient Disposition: Home, Self-Care Instructions: Acute Bronchitis (ED) Additional Instructions: Please follow-up with your primary care physician tomorrow. If you have any worsening or new symptoms, please return to the emergency room or call 911 Prescriptions: No Action acetaminophen 500 mg tablet 1,000 mg PO TID PRN (Reason: pain) fluticasone propionate 50 mcg/actuation [place],Suspension 1 spray INTRANASAL DAILY PRN (Reason: Allergy Symptoms) Rx Instructions: administer into each nostril allopurinol 100 mg Tablet 100 mg PO DAILY@1700 losartan 25 mg Tablet 25 mg PO DAILY@0800 isosorbide mononitrate 30 mg Tablet Extended Release 24 Hr 30 mg PO DAILY@0800 metoprolol succinate 50 mg Tablet Extended Release 24 Hr 75 mg PO DAILY@0800 atorvastatin 80 mg tablet 80 mg PO DAILY aspirin 81 mg tablet,delayed release (DR/EC) 81 mg PO DAILY sucralfate [Carafate] 100 mg/mL suspension 10 ml PO QIDACHS omeprazole 40 mg capsule,delayed release(DR/EC) 40 mg PO BID
[2022-08-06 05:23] LABS: MANUAL DIFF FLAG NO
[2022-08-06 05:26] LABS: Venous Blood Gas Refer to POC result
[2022-08-06 05:26] LABS: Basophils Percent Auto 0.7 % (0-2); Eosinophils Absolute Auto 0.3 X10*3/uL (0.0-0.4); Eosinophils Percent Auto 6.6 % (0-4); Hematocrit 33.7 % (42.0-52.0); Hemoglobin 11.1 g/dl (14.0-18.0); Imm Gran Abs Auto 0.01 X10*3/uL (0.00-0.03); Imm Gran Pct Auto 0.2 % (0.0-0.4); Lymphocytes Absolute Auto 1.4 X10*3/uL (1.2-4.9); Lymphocytes Percent Auto 30.6 % (20-40); Mean Corpuscular HGB Conc 32.9 g/dl (31.0-36.0); Mean Corpuscular Hemoglobin 31.7 pg (27.0-33.0); Mean Corpuscular Volume 96.3 fL (80.0-98.0); Mean Platelet Volume 8.8 fL (9.4-12.4); Monocytes Absolute Auto 0.6 X10*3/uL (0.1-1.2); Monocytes Percent Auto 12.5 % (2-11); Neutrophils Absolute Auto 2.2 x10*3/uL (2.0-8.3); Neutrophils Percent Auto 49.4 % (45-73); Platelet Count 213 X10*3/uL (160-400); Red Cell Distribution Width 13.9 % (11.0-16.0); White Blood Count 4.4 X10*3/uL (4.8-10.8)
[2022-08-06 05:29] LABS: VBG Base Excess 2.7 mmol/L; VBG HCO3 28 mmol/L (22-26); VBG pCO2 46 mmHg; VBG pH 7.38 (7.32-7.43); VBG pO2 40 mmHg
[2022-08-06 05:38] LABS: COVID-19 Test Negative (Negative); IDNOW Serial# BCCEAD1C
[2022-08-06 05:40] LABS: Anion Gap 12 (12-20); Blood Urea Nitrogen 21 mg/dL (9-16); Calcium 9.6 mg/dL (8.4-10.2); Carbon Dioxide 26 mmol/L (22-29); Chloride 108 mmol/L (96-108); Creatinine Clr Calc Pharmacy 83.9; Estimated Glomerular Filt Rate > 60; Glucose Random 98 mg/dL (60-115); Potassium 4.4 mmol/L (3.3-5.1); Sodium 142 mmol/L (135-145)
[2022-08-06 05:44] LABS: Troponin-I High Sensitivity 6.5 ng/L (<3.5-35.0)
[2022-08-06 05:46] LABS: B Type Natriuretic Peptide 45 pg/mL (<100)
== END 2022-08-06 06:44 | disposition home or self-care (01) ==
PROVIDERS: Emergency Provider Emergency Medicine; PCP Internal Medicine
DX: J20.8 Acute bronchitis due to other specified organisms (principal); R06.02 Shortness of breath; Z20.822 Contact with and (suspected) exposure to COVID-19; I10 Essential (primary) hypertension; Z79.899 Other long term (current) drug therapy
CPT/HCPCS: 36415; 71045; 80048; 82803; 83880; 84484; 85025; 87635; 93005; 99283; 99284

== ENCOUNTER 2022-08-13 10:39 | Emergency (ER) | payer MEDICARE, MEDICAID, SELFPAY ==
--- NOTE | ~2022-08-13 | XR_ITS ---
EXAMINATION: XR SHOULDER, LEFT CLINICAL INFORMATION: Left shoulder pain after fall COMPARISON: None available. TECHNIQUE: Three views of the left shoulder. FINDINGS: No fracture or dislocation. The glenohumeral joint is well aligned. The acromioclavicular joint is intact with mild hypertrophic degenerative change. The visualized lung is clear. XR/XR shoulder LT min 2V IMPRESSION: No fracture or malalignment. Mild degenerative changes of the acromioclavicular joint.
--- NOTE | ~2022-08-13 | CT_ITS ---
EXAMINATION: NONCONTRAST HEAD CT NONCONTRAST CERVICAL SPINE CT INDICATION INFORMATION: Acute head trauma. Midline traumatic neck pain. COMPARISON: 07/31/2022 TECHNIQUE: Separate noncontrast CT examinations of the head and cervical spine were performed. Coronal and sagittal images were created for each examination at the technologist workstation. This CT examination was performed using dose optimization techniques as appropriate, variously including the following: *Automated exposure control *Adjustment of mA and/or kV according to patient size (this includes techniques or standardized protocols for targeted exams where dose is matched to indication/reason for exam; i.e. extremities or head) *Use of iterative reconstruction technique DLP: 1201 mGy-cm FINDINGS: Head: There is no evidence of acute intracranial hemorrhage or territorial infarction. No abnormal mass effect or midline shift is seen. Glaser to white matter differentiation is well preserved. No extra-axial fluid collections are identified. No hydrocephalus. Proportional prominence of the ventricles and sulcal spaces is consistent with mild volume loss. There is no abnormal attenuation within the brain parenchyma. No acute osseous or soft tissue abnormality. The mastoid air cells and visualized portions of the paranasal sinuses are well aerated. Cervical spine: There is anatomic alignment of the vertebral bodies and posterior elements. The atlantoaxial and atlantooccipital articulations are intact. Vertebral body heights are maintained. There is multilevel intervertebral disc space narrowing with endplate osteophyte formation and facet arthropathy. No evidence of acute fracture. No prevertebral soft tissue swelling. Visualized portions of the lung apices are unremarkable. The thyroid gland is unremarkable. CT/CT cervical spine wo IV con IMPRESSION: 1. No acute intracranial finding. 2. No fracture or malalignment of the cervical spine. Mild degenerative change.
--- NOTE | ~2022-08-13 | CT_ITS ---
EXAMINATION: CT CHEST, ABDOMEN AND PELVIS WITH CONTRAST CLINICAL INFORMATION: Status post fall down stairs. COMPARISON: 07/23/2022 and 02/16/2022 TECHNIQUE: Multidetector volumetric imaging was performed from the superior aspect of the liver through the pubic symphysis. Oral contrast and 85 mL Omnipaque 350 intravenous contrast were administered. Sagittal and coronal reformatted images were obtained on the technologist's workstation. This CT examination was performed using dose optimization techniques as appropriate, variously including the following: *Automated exposure control *Adjustment of mA and/or kV according to patient size (this includes techniques or standardized protocols for targeted exams where dose is matched to indication/reason for exam; i.e. extremities or head) *Use of iterative reconstruction technique DLP: 1179 mGy-cm FINDINGS: CHEST: LUNGS: Subpleural reticular changes. No focal consolidation. No suspicious pulmonary nodules. Central airways are patent. MEDIASTINUM: No bulky axillary, hilar or mediastinal lymphadenopathy. Great vessels are of normal caliber. Heart is enlarged. No pericardial effusion. Moderate coronary artery calcification. PLEURA: No pleural effusion. CHEST WALL: No acute abnormality. ABDOMEN/PELVIS: LIVER, GALLBLADDER, AND BILIARY TREE: The noncontrast liver is normal in size and contour. No focal hepatic lesion. Mild intrahepatic biliary duct dilatation. The common duct remains dilated measuring up to 1.2 cm at the jeremy hepatis. The gallbladder is distended. PANCREAS: No ductal dilatation. SPLEEN: Not enlarged. ADRENAL GLANDS: No adrenal masses. KIDNEYS AND URETERS: The kidneys are symmetric in size and enhancement. 1.1 cm calculus impacted at the right ureterovesical junction. There is mild/moderate right hydroureteronephrosis. No right perinephric stranding. Duplicated left renal collecting system. BLADDER: Mildly trabeculated wall. No bladder calculus. No significant perivesicular fat stranding. GASTROINTESTINAL TRACT: Surgical anastomosis in the distal stomach with multiple surgical clips in the upper abdomen. Small and large bowel loops are of normal caliber. Appendix is within normal limits. Marked fecal retention in the colon and in the rectum. ABDOMINAL WALL: Postsurgical changes of bilateral inguinal hernia repair with surgical tacks and mesh in the lower anterior abdominal wall. LYMPH NODES: No bulky abdominal or pelvic lymphadenopathy. VASCULAR: No abdominal aortic aneurysm. PELVIC VISCERA: Mild enlarged prostate gland. OSSEOUS STRUCTURES: No destructive bone lesions. CT/CT abdomen pelvis w IV con IMPRESSION: 1.1 cm calculus impacted at the right ureterovesical junction with mild/moderate right hydroureteronephrosis. No right perinephric stranding.
[2022-08-13 10:56] VITALS: BMI 25.8
[2022-08-13 11:01] VITALS: BP 144/76; PULSE 63; RESP 16; TEMP 36.4; O2SAT 100
--- OUTSIDE RECORDS SUMMARY | 2022-08-13 11:24 | XMS_ITS | Continuity of Care Document ---
Author Name Unknown Organization [facility] ter Address [address] [place] [id number] Care Team Providers Care Mri Special Procedures Technologist Name Role Phone Naseem Alford MD Primary Care Physician [phone] Encounter [facility] Date(s): 09/17/21 - 09/19/[address] [id number]- Encounter Diagnosis Chest pain(Final) - 09/17/21 Discharge Disposition: A-D/C Home Attending Physician: Priya Alberto MD Admitting Physician: Jacqueline Rodarte DO Referring Physician: Not on Staff, Referring MD Allergies, Adverse Reactions, Alerts Substance Reaction Severity Status MiraLax Itching of skin Active Immunizations Given and Recorded Vaccine Date Status Refusal Reason SARS-CoV-2 (COVID-19) mRNA-1273 vaccine 02/17/21 R ecorded SARS-CoV-2 (COVID-19) mRNA-1273 vaccine 06/26/20 R ecorded SARS-CoV-2 (COVID-19) mRNA-1273 vaccine 05/29/20 R ecorded Medications allopurinol 100 mg oral tablet 1 tablet, By Mouth, Daily before dinner, 0 Refills, Maintenance, 11/05/13 22:43:57 EDT, Tablet Start Date: 11/05/13 Status: Ordered Aspir 81 Oral Enteric Coated Tablet 1 tablet, By Mouth, Daily, # 90 tablet, 0 Refills, Maintenance, 11/07/13 11:49:11, EC Tablet Start Date: 11/07/13 Stop Date: 02/05/14 Status: Ordered atorvastatin 80 mg oral tablet 1 tablet = 80 mg, By Mouth, Daily, # 30 tablet, 5 Refills, Maintenance, 01/31/21 13:13:00 EST, Tablet, Partial fill upon patient request if the prescription is for a schedule II opioid drug. Start Date: 01/31/21 Status: Ordered Carafate 1 gm/10 ml oral suspension 10 mL = 1 Gm, By Mouth, 3 times a day before meals and bedtime, # 1,200 mL, 0 Refills, Maintenance,05/07/21 10:56:00 EST, [facility]/pharmacy #[id number], Partial fill upon patient request if the prescription isfor a schedule II opioid drug., 177.8, cm, 05/07/21... Start Date: 05/07/21 Status: Ordered Compression Stockings See Instructions, # 1 each, Refills 1, Tot. Refills 1, Maintenance, surgical, thigh high length 40-50 mm Hg, 09/19/21 14:23:00 EDT, Supply, 178, cm, 09/19/21 11:48:00 EDT, Height, 76.6, kg, 09/18/21 0:08:00 EDT, Dry Weight Start Date: 09/19/21 Status: Ordered Flonase 50 mcg/inh nasal spray 1 sprays, Nares, Both, Daily in AM, 0 Refills, Maintenance, 09/05/21 21:24:00 EDT, [place], Partial fill upon patient request if the prescription is for a schedule II opioid drug. Start Date: 09/05/21 Status: Ordered isosorbide mononitrate 30 mg oral tablet, extended release 1 tablet = 30 mg, By Mouth, Daily in AM, # 30 tablet, 0 Refills, Maintenance, 08/21/21 16:13:00 EDT, ER Tablet, Partial fill upon patient request if the prescription is for a schedule II opioid drug. Start Date: 08/21/21 Status: Ordered losartan 25 mg oral tablet 25 mg, 1, tablet, By Mouth, Daily, # 30 tablet, Refills 0, Tot. Refills 0, Maintenance, 02/26/21 16:36:00 EST, Route to Pharmacy Electronically, [facility], Partial fill upon patient request if the prescription is for a schedule II opioi... Start Date: 02/26/21 Status: Ordered losartan 25 mg oral tablet 25 mg, Tablet, By Mouth, 09/19/21 9:00:00 EDT Start Date: 09/19/21 Stop Date: 09/19/21 Status: Completed metoprolol 50 mg oral tablet, extended release 50 mg, 1, tablet, By Mouth, Daily in AM, # 30 tablet, Refills 2, Tot. Refills 2, Maintenance, 09/19/21 13:34:00 EDT, Route to Pharmacy Electronically, [facility]/pharmacy #[id number], Partial fill upon patient request if the prescription is for a schedule II opioi... Start Date: 09/19/21 Status: Ordered MorPHINE Inj 1 mg, Injection, IV Push Slowly, Once, Routine, 09/19/21 8:00:00 EDT, Stop date 09/19/21 8:00:00 EDT Start Date: 09/19/21 Stop Date: 09/19/21 Status: Completed nitroglycerin 0.4 mg sublingual tablet 1 tablet = 0.4 mg, Sublingual, Every 5 minutes, PRN as needed for chest pain, not to exceed 3 doses/15 min--if pain persists, seek medical attention, Maintenance, 10/29/20 10:56:00 EDT, Tablet, ; Start Date: 10/29/20 Status: Ordered pantoprazole 40 mg oral delayed release tablet = 40 mg, By Mouth, 2 times a day, # 60 tablet, 0 Refills, Maintenance, 03/14/21 10:57:00 EST, EC Tablet, 178, cm, 03/14/21 6:13:00 EST, Height, 87, kg, 03/13/21 17:37:00 EST, Dry Weight Start Date: 03/14/21 Stop Date: 04/13/21 Status: Ordered ticagrelor 90 mg oral tablet 1 tablet = 90 mg, By Mouth, 2 times a day, # 60 tablet, 0 Refills, Maintenance, 01/25/21 10:54:00 EST, Tablet, [facility], Partial fill upon patient request if the prescription is for aschedule II opioid drug., 177.8, cm, 01/25/21 8:37:... Start Date: 01/25/21 Status: Ordered Problem List Condition Effective Dates Status Health Status Inform ant Anemia(Confirmed) Active Chest pain(Confirmed) Active CAD (coronary artery disease ) with PCI in 12/2020(Confirmed) Active Heart failure(Confirmed) Active LBBB (left bundle branch block)(Confirmed) Active Inguinal hernia of left side without obstruction or gangrene(Confirmed) Active Elevated LFTs(Confirmed) Active Status post cardiac catheterization(Confirmed) Active Episode of syncope(Confirmed) Active Results Radiology Reports * Exam Date Time Procedure Performing Provider Status 09/17/21 2:40 PM Chest 2 Views Frontal and Lat Timo Vickers (Verified) Notes: (Chest 2 Views Frontal and Lat) Reason For Exam: Shortness of Breath, Fever;Other: RESULT: Chest 2 Views Frontal and Lat Chest 2 Views Frontal and Lat INDICATION: Severe chest pain COMPARISON: 09/05/2021 FINDINGS: LINES AND TUBES: None. LUNGS AND PLEURA: Clear lungs. Normal pulmonary vascularity. No pleural effusion. No pneumothorax. HEART, MEDIASTINUM AND TINY: Heart is normal in size. Normal upper mediastinal and hilar contour. BONES AND SOFT TISSUES: No acute abnormality. IMPRESSION: No acute abnormality. WSN: [id number] Ordering Physician: Marbin Gifford Dictated By: Lv Lindsay MD Dictated Date/Time: 09/17/21 2:44 pm Reviewed By: Lv Lindsay MD Signed By: Lv Lindsay MD Signed Date/Time: 09/17/21 2:44 pm Transcribed By: LISA Transcribed Date/Time: 09/17/21 2:44 pm Vital Signs Most recent to oldest [Reference Range]: 1 2 3 Height 178 cm (09/19/21 11:48 AM) 178 cm (09/19/21 7:35 AM) 178 cm (09/19/21 7:35 AM) Weight 76.6 kg (09/18/21 12:08 AM) Oxygen Saturation [94-100 %] 99 % (09/19/21 11:48 AM) 100 % (09/19/21 7:35 AM) 99 % (09/19/21 4:27 AM) Pulse Rate [55-90 bpm] 68 bpm (09/19/21 11:48 AM) 70 bpm (09/19/21 7:35 AM) 61 bpm (09/19/21 4:27 AM) Body Mass Index [18.5-24.99] 24.18 (09/18/21 12:08 AM) Blood Pressure [90-138/55-84 mm Hg] 132/72mm Hg (09/19/21 11:48 AM) 117/83mm Hg (09/19/21 8:28 AM) 117/83mm Hg (09/19/21 7:35 AM) Respiratory Rate [16-30 br/min] 17 br/min (09/19/21 11:48 AM) 18 br/min (09/19/21 11:02 AM) 18 br/min (09/19/21 8:28 AM) Temperature [96.8-100.4 DegF] 97.7 DegF (09/19/21 11:48 AM) 97.8 DegF (09/19/21 4:27 AM) 98.1 DegF (09/18/21 11:41 PM) Mode of Delivery (Oxygen) Room air (09/19/21 11:48 AM) Room air (09/19/21 7:35 AM) Room air (09/19/21 4:27 AM) Blood pressure sites Arm, left (09/19/21 11:48 AM) Arm, right (09/19/21 7:35 AM) Arm, left (09/19/21 4:27 AM) Temperature Route Oral (09/19/21 11:48 AM) Oral (09/19/21 4:27 AM) Oral (09/18/21 11:41 PM) Dry Weight 76.6 kg (09/18/21 12:08 AM) Weight Obtained Via Standing scale (09/18/21 12:08 AM) Social History Social History Type Response Smoking Status Never (less than 100 in lifetime) entered on: 10/21/19 Sex Medical Equipment Implanted Date:06/24/21Target Site:Groin Left Description Quantity MRI Anews Model MESH 3D MAX MID X-LG LT 5X7I N - BARD ([id number]) 1 Bard Unknown ADALI:{01}[id number] Assigning Author ity:FDA Implanted Date:06/24/21Target Site:Groin Right Description Quantity MRI Company Model MESH 3D MAX MID LG RT 4X6IN - BARD ([id number]) 1 Bard Unknown ADALI:{01}[id number]{10}HUFY AB06 Assigning Authority:FDA
--- OUTSIDE RECORDS SUMMARY | 2022-08-13 11:24 | XMS_ITS | Continuity of Care Document ---
Author Name Unknown Organization [facility] ter Address [address] [place] [id number]- Care Team Providers Care Substance Abuse Therapist Name Role Phone Naseem Alford MD Primary Care Physician [phone] Encounter [facility] Date(s): 08/21/21 - 08/27/[address] [address]charge Disposition: A-D/C Home Attending Physician: Sherry Cottrell MD Admitting Physician: King Cottrell MD Referring Physician: Not on Staff, Referring MD [...] EDT, Tablet Start Date: 11/05/13 Status: Ordered amoxicillin 500 mg oral capsule 2 capsule = 1,000 mg, By Mouth, 3 times a day, for 10 days, # 60 capsule, 0 Refills, Acute 09/06/2210:20:00 EDT, 08/27/21 11:20:00 EDT, Capsule, [facility], Partial fill upon patient request if the prescription is for a schedule II opio... Start Date: 08/27/21 Stop Date: 09/06/21 Status: Ordered Aspir 81 Oral Enteric Coated [...] 1,200 mL, 0 Refills, Maintenance,05/07/21 10:56:00 EST, [facility]/pharmacy #[id number], Partial fill upon patient request if the prescription isfor a schedule II opioid drug., 177.8, cm, 05/07/21... Start Date: 05/07/21 Status: Ordered isosorbide mononitrate 30 mg oral [...] 02/26/21 16:36:00 EST, Route to Pharmacy Electronically, [facility], Partial fill upon patient request if the prescription is for a schedule II opioi... Start Date: 02/26/21 Status: Ordered metoprolol 25 mg oral tablet, extended release 25 mg, XL Tablet, By Mouth, 08/27/21 9:35:00 EDT Start Date: 08/27/21 Stop Date: 08/27/21 Status: Completed metoprolol 50 mg oral tablet, extended release 75 mg, 1.5, tablet, By Mouth, Daily in AM, Refills 0, Maintenance, 08/27/21 11:23:00 EDT, Partial fill upon patient request if the prescription is for a schedule II opioid drug. Start Date: 08/27/21 Status: Ordered nitroglycerin 0.4 mg sublingual tablet 1 tablet [...] 0 Refills, Maintenance, 01/25/21 10:54:00 EST, Tablet, [facility], Partial fill upon patient [...] catheterization(Confirmed) Active Episode of syncope(Confirmed) Active Results Orders for Microbiology Reports Name Date Blood Culture 08/22/21 Blood Culture #2 08/22/21 Blood Culture 08/21/21 Blood Culture #2 08/21/21 Microbiology Reports TEST:Blood Culture STATUS:Auth (Verified) BODY SITE: SOURCE:Blood COLLECTED DATE/TIME:08/22/21 9:46 AM Blood Culture SPECIMEN DESCRIPTION : BLOOD NOSITE SPECIAL REQUESTS : NONE CULTURE : NO GROWTH 5 DAYS. REPORT STATUS : FINAL 08/27/2021 TEST:Blood Culture, Second Order STATUS:Auth (Verified) BODY SITE: SOURCE:Blood COLLECTED DATE/TIME:08/22/21 9:46 AM Blood Culture, Second Order SPECIMEN DESCRIPTION : BLOOD NOSITE SPECIAL REQUESTS : NONE CULTURE : NO GROWTH 5 DAYS. REPORT STATUS : FINAL 08/27/2021 TEST:Blood Culture, Second Order STATUS:Auth (Verified) BODY SITE: SOURCE:Blood COLLECTED DATE/TIME:08/21/21 10:20 AM Blood Culture, Second Order SPECIMEN DESCRIPTION : BLOOD NO SITE SPECIAL REQUESTS : CRITICAL VALUE CALLED AND VERIFIED BY READBACK FOR: GRAM NEGATIVE RODS TO [id number], S1, ON 08/22/21 AT 0449 BY [facility] [id number] CULTURE : Salmonella enterica ssp enterica Enterobacteriaceae species was identified by multi-plex PCR REPORT STATUS : FINAL 08/25/2021 ORGANISM Salmonella enterica ssp enterica METHOD MIN. INHIB. CONC. (MCG/ML) AMPICILLIN SUSCEPTIBLE TRIMETH/SULFAMETHOX SUSCEPTIBLE ORGANISM Salmonella enterica ssp enterica METHOD ETEST GRADIENT STRIP (MCG/ML) LEVOFLOXACIN SUSCEPTIBLE CIPROFLOXACIN SUSCEPTIBLE TEST:Blood Culture STATUS:Auth (Verified) BODY SITE: SOURCE:Blood COLLECTED DATE/TIME:08/21/21 10:10 AM Blood Culture SPECIMEN DESCRIPTION : BLOOD NO SITE SPECIAL REQUESTS : NONE CULTURE : NO GROWTH 5 DAYS. REPORT STATUS : FINAL 08/26/2021 Radiology Reports * Exam Date Time Procedure Performing Provider Status 08/21/21 10:41 AM Chest Single Frontal View Gurwinder Trinidad; Auth (Verified) Notes: (Chest Single Frontal View) Reason For Exam: Shortness of Breath RESULT: Chest Single Frontal View Chest Single Frontal View Hx of Present Illness: multiple episodes of diarrhea last night, AGRAWAL and body pains. woke up this morning with crushing CP and SOB, intermittent since. cardiac hx VT and stent. pt also reports diarrhea this morning and AGRAWAL still present; Reason: Shortness of Breath; Clinical Question(s): CHF COMPARISON: 06/03/2021 FINDINGS: No acute cardiopulmonary process. Reticulonodular pattern in the bilateral lower lobes, right greater than left, consistent with the mild fibrosis identified on prior abdomen CTs IMPRESSION: No acute abnormality. WSN: [id number] Ordering Physician: Mariel Quinonez Dictated By: Christopher Coleman MD Dictated Date/Time: 08/21/21 10:44 a Reviewed By: Christopher Coleman MD Signed By: Christopher Coleman MD Signed Date/Time: 08/21/21 10:44 am Transcribed By: LISA Transcribed Date/Time: 08/21/21 10:42 am Vital Signs Most recent to oldest [Reference Range]: 1 2 3 Height 178 cm (08/27/21 11:28 AM) 178 cm (08/27/21 4:37 AM) 178 cm (08/26/21 10:34 PM) Weight 77.7 kg (08/21/21 7:45 PM) 76 kg (08/21/21 3:53 PM) 76 kg (08/21/21 9:58 AM) Oxygen Saturation [94-100 %] 100 % (08/27/21 11:28 AM) 100 % (08/27/21 7:00 AM) 97 % (08/27/21 4:37 AM) Pulse Rate [55-90 bpm] 64 bpm (08/27/21 11:28 AM) 71 bpm (08/27/21 9:35 AM) 71 bpm (08/27/21 7:00 AM) Body Mass Index [18.5-24.99] 24.52 (08/21/21 7:45 PM) 23.99 (08/21/21 3:53 PM) Blood Pressure [90-138/55-84 mm Hg] 151/67mm Hg *H* (08/27/21 11:28 AM) 152/53mm Hg *H* (08/27/21 9:35 AM) 152/53mm Hg *H* (08/27/21 7:00 AM) Respiratory Rate [16-30 br/min] 18 br/min (08/27/21 11:28 AM) 19 br/min (08/27/21 7:00 AM) 18 br/min (08/27/21 4:37 AM) Temperature [96.8-100.4 DegF] 97.9 DegF (08/27/21 11:28 AM) 97.8 DegF (08/27/21 7:00 AM) 97.6 DegF (08/27/21 4:37 AM) Liters per Minute 2 L/min (08/26/21 7:21 AM) Mode of Delivery (Oxygen) Room air (08/27/21 11:28 AM) Room air (08/27/21 7:00 AM) Room air (08/27/21 4:37 AM) Blood pressure sites Arm, left (08/27/21 11:28 AM) Arm, left (08/27/21 7:00 AM) Arm, left (08/27/21 4:37 AM) Temperature Route Oral (08/27/21 11:28 AM) Oral (08/27/21 7:00 AM) Oral (08/27/21 4:37 AM) Dry Weight 76 kg (08/21/21 3:53 PM) 76 kg (08/21/21 9:58 AM) Weight Obtained Via Patient/family state d (08/21/21 9:58 AM) Dry Weight Obtained Via Patient/family s tated (08/21/21 9:58 AM) Social History Social History Type Response Smoking Status Never (less than 100 in lifetime) entered on: 10/21/19 Sex Medical Equipment Implanted Date:06/24/21Target Site:Groin Left Description Quantity MRI [email or web address] Model MESH 3D MAX MID X-LG LT 5X7I N - BARD ([id number]) 1 Bard Unknown ADALI:{01}[id number] Assigning Author ity:FDA Implanted Date:06/24/21Target Site:Groin Right Description Quantity MRI [email or web address] Model MESH 3D MAX MID LG RT 4X6IN - BARD ([id number]) 1 Bard Unknown ADALI:{01}[id number]{17}[id number]{10}HUFY AB06 Assigning Authority:FDA
--- OUTSIDE RECORDS SUMMARY | 2022-08-13 11:24 | XMS_ITS | Continuity of Care Document ---
Author Name Unknown Organization [facility] Address [address] [place] [id number]- Care Team Providers Care Rate Engineer Name Role Phone Naseem Alford MD Primary Care Phys[id number] - 10[facility]15/21 [facility] [address] [place] [id number]- Attending Physician: Dangelo Ross MD Admitting Physician: Dangelo Ross MD Referring Physician: Naseem Alford MD Allergies, Adverse Reactions, Alerts Substance Reaction [...] 1,200 mL, 0 Refills, Maintenance,05/07/21 10:56:00 EST, [facility]/pharmacy #[id number], Partial fill upon patient request if [...] AM, 0 Refills, Maintenance, 09/05/21 21:24:00 EDT, [place], Partial fill upon patient request if the [...] 02/26/21 16:36:00 EST, Route to Pharmacy Electronically, [facility], Partial fill upon patient request if the prescription is for a schedule II opioi... Start Date: 02/26/21 Status: Ordered metoprolol 50 mg oral tablet, extended release 50 mg, 1, tablet, By Mouth, Daily in AM, # 30 tablet, Refills 2, Tot. Refills 2, Maintenance, 09/19/21 13:34:00 EDT, Route to Pharmacy Electronically, [facility]/pharmacy #[id number], Partial fill upon patient request if the prescription is for a schedule II opioi... Start Date: 09/19/21 Status: Ordered nitroglycerin 0.4 mg sublingual tablet [...] 0 Refills, Maintenance, 01/25/21 10:54:00 EST, Tablet, [facility], Partial fill upon patient request [...] cardiac catheterization(Confirmed) Active Episode of syncope(Confirmed) Active Social History Social History Type Response Smoking Status Never (less than 100 in lifetime) entered on: 10/21/19 Sex Medical Equipment Implanted Date:06/24/21Target Site:Groin Left Description Quantity [employer] Model MESH 3D MAX MID X-LG LT 5X7I N - BARD ([id number]) 1 Bard Unknown ADALI:{01}[id number] Assigning Author ity:FDA Implanted Date:06/24/21Target Site:Groin Right Description Quantity [employer] Model MESH 3D MAX MID LG RT 4X6IN - BARD ([id number]) 1 Bard Unknown ADALI:{01}[id number]{17}[id number]{10}HUFY AB06 Assigning Authority:FDA
--- OUTSIDE RECORDS SUMMARY | 2022-08-13 11:24 | XMS_ITS | Continuity of Care Document ---
Author Name Unknown Organization [facility] Address Unknown Care Team Providers Care Mastic Sprayer Name Role Phone Naseem Alford MD Primary Care Physician Encounter [facility] Date(s): 06/16/21 - 07/16/21 [facility] Allergies, Adverse Reactions, Alerts Substance Reaction Severity Status MiraLax Itching of skin Active Medications allopurinol 100 mg oral tablet 1 [...] 1,200 mL, 0 Refills, Maintenance,05/07/21 10:56:00 EST, [facility]/pharmacy #[id number], Partial fill upon patient request if the prescription isfor a schedule II opioid drug., 177.8, cm, 05/07/21... Start Date: 05/07/21 Status: Ordered Colace sodium 100 mg oral capsule 100 mg, 1, capsule, By Mouth, 2 times a day, PRN, # 100 capsule, Refills 0, Tot. Refills 0, Maintenance, for constipation, 05/27/21 14:45:00 EDT, Route to Pharmacy Electronically, [facility], Partial fill upon patient request if the pres... Start Date: 05/27/21 Status: Ordered Imdur 30 mg oral tablet, extended release 60 mg, By Mouth, Daily, Refills 0, Maintenance, 04/02/21 10:43:00 EST, Partial fill upon patient request if the prescription is for a schedule II opioid drug. Start Date: 04/02/21 Status: Ordered losartan 25 mg oral tablet 25 mg, 1, tablet, By Mouth, Daily, # 30 tablet, Refills 0, Tot. Refills 0, Maintenance, 02/26/21 16:36:00 EST, Route to Pharmacy Electronically, [facility], Partial fill upon patient request if the prescription is for a schedule II opioi... Start Date: 02/26/21 Status: Ordered metoprolol 50 mg oral tablet, extended release 75 mg, 1.5, tablet, By Mouth, 2 times a day, # 90 tablet, Refills 0, Tot. Refills 0, Maintenance, 01/25/21 10:53:00 EST, Route to Pharmacy Electronically, [facility], Partial fill upon patient request if the prescription is for a schedul... Start Date: 01/25/21 Status: Ordered nitroglycerin 0.4 mg sublingual tablet [...] 0 Refills, Maintenance, 01/25/21 10:54:00 EST, Tablet, [facility], Partial fill upon patient request [...] Equipment Implanted Date:06/24/21Target Site:Groin Left Description Quantity [employer] Model MESH 3D MAX MID X-LG LT 5X7I N - BARD ([id number]) 1 Bard Unknown ADALI:{01}[id number] Assigning Author ity:FDA Implanted Date:06/24/21Target Site:Groin Right Description Quantity MRI [email or web address] Model MESH 3D MAX MID LG RT 4X6IN - BARD ([id number]) 1 Bard Unknown ADALI:{01}[id number]{17}[id number]{10}HUFY AB06 Assigning Authority:FDA
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
--- OUTSIDE RECORDS SUMMARY | 2022-08-13 11:24 | XMS_ITS | Continuity of Care Document ---
Author Name Unknown Organization [facility] ter Address [address] [place] [id number]- Care Team Providers Care Base Engineer Name Role Phone Naseem Alford MD Primary Care Physician [place] [facility] [place]): [place] - 10/22/[address] [address] Encounter Diagnosis Chest pain(Final) - 10/20/19 Discharge Disposition: A-D/C Home Attending Physician: Mohan Rodriguez MD Admitting Physician: Rangel Cottrell MD Referring Physician: Not on Staff, Referring MD Allergies, Adverse Reactions, Alerts Substance Reaction Severity Status NKA Active Medications allopurinol 100 mg oral tablet 1 tablet, By Mouth, Daily before dinner, # 30 tablet, 0 Refills, Maintenance, 11/05/13 22:43:57, Tablet Start Date: 11/05/13 Status: Ordered Aspir 81 Oral Enteric Coated Tablet 1 tablet, By Mouth, Daily, # 90 tablet, 0 Refills, Maintenance, 11/07/13 11:49:11, EC Tablet Start Date: 11/07/13 Stop Date: 02/05/14 Status: Ordered atorvastatin 10 mg oral tablet 1 tablet = 10 mg, By Mouth, Daily at bedtime, # 30 tablet, 0 Refills, Maintenance, 11/07/13 11:11:51, Tablet Start Date: 11/07/13 Status: Ordered lisinopril 10 mg oral tablet 1 tablet = 10 mg, By Mouth, Daily, # 30 tablet, 0 Refills, Maintenance, 11/07/13 11:12:14 EDT, Tablet Start Date: 11/07/13 Status: Ordered metoprolol 50 mg oral tablet = 50 mg, By Mouth, 2 times a day, # 120 tablet, 1 Refills, Maintenance, 11/07/13 11:13:03, Tablet Start Date: 11/07/13 Stop Date: 03/07/14 Status: Ordered Problem List Condition Effective Dates Status Health Status Inform ant Status post cardiac catheterization(Confirmed) Active Episode of syncope(Confirmed) Active Results Radiology Reports * Exam Date Time Procedure Performing Provider Status 10/21/19 6:45 AM Chest Portable Tila Mays; Auth (V erified) Notes: (Chest Portable) Reason For Exam: Angina RESULT: Chest Portable Chest Portable AP upright Reason: Angina; Clinical Question(s): Pneumothorax COMPARISON: 07/11/2016. FINDINGS: LINES AND TUBES: None. LUNGS AND PLEURA: Clear lungs. Normal pulmonary vascularity. No pleural effusion. No pneumothorax. HEART, MEDIASTINUM AND TINY: Heart is normal in size. Normal mediastinal and hilar contour. BONES AND SOFT TISSUES: No acute abnormality. IMPRESSION: No acute abnormality. WSN: [id number] Ordering Physician: Sadia Novoa Dictated By: Desiree De Oliveira MD Dictated Date/Time: 10/21/19 7:13 am Reviewed By: Desiree De Oliveira MD Signed By: Desiree De Oliveira MD Signed Date/Time: 10/21/19 7:13 am Transcribed By: LISA Transcribed Date/Time: 10/21/19 7:12 am Vital Signs Most recent to oldest [Reference Range]: 1 2 3 Height 178 cm (10/22/19 3:30 PM) 178 cm (10/22/19 12:36 PM) 178 cm (10/22/19 8:24 AM) Weight 84.8 kg (10/22/19 8:24 AM) 84.8 kg (10/21/19 12:46 AM) Oxygen Saturation [94-100 %] 100 % (10/22/19 3:30 PM) 100 % (10/22/19 12:36 PM) 100 % (10/22/19 7:42 AM) Pulse Rate [55-90 bpm] 58 bpm (10/22/19 3:30 PM) 63 bpm (10/22/19 12:36 PM) 63 bpm (10/22/19 8:08 AM) Blood Pressure [90-138/55-84 mm Hg] 153/73mm Hg *H* (10/22/19 3:30 PM) 146/80mm Hg *H* (10/22/19 12:36 PM) 155/82mm Hg *H* (10/22/19 8:08 AM) Respiratory Rate [16-30 br/min] 20 br/min (10/22/19 3:30 PM) 18 br/min (10/22/19 12:39 PM) 20 br/min (10/22/19 12:36 PM) Temperature [96.8-100.4 DegF] 98.4 DegF (10/22/19 3:30 PM) 97.5 DegF (10/22/19 12:36 PM) 97.3 DegF (10/22/19 7:42 AM) Mode of Delivery (Oxygen) Room air (10/22/19 3:30 PM) Room air (10/22/19 12:36 PM) Room air (10/22/19 7:42 AM) Blood pressure sites Arm, left (10/22/19 3:30 PM) Arm, left (10/22/19 12:36 PM) Arm, left (10/22/19 7:42 AM) Temperature Route Oral (10/22/19 3:30 PM) Oral (10/22/19 12:36 PM) Oral (10/22/19 7:42 AM) Weight Obtained Via Bed scale (10/21/19 12:46 AM) Social History Social History Type Response Smoking Status Never (less than 100 in lifetime) entered on: 10/21/19 Sex
--- OUTSIDE RECORDS SUMMARY | 2022-08-13 11:24 | XMS_ITS | Continuity of Care Document ---
Author Name Unknown Organization [facility] ter Address [address] [place] [id number]- Care Team Providers Care Chucking Machine Set Up Operator Name Role Phone Naseem Alford MD Primary Care Physician [phone] [place]counter [facility] [place](s): 08/09/21 - 08/09/[address] [address]- Encounter Diagnosis Epididymo-orchitis(Final) - 08/09/21 Discharge Disposition: A-D/C Home Attending Physician: Pooja Smith MD Admitting Physician: Pooja Smith MD Referring Physician: Not on Staff, Referring MD Allergies, Adverse Reactions, Alerts Substance Reaction Severity Status MiraLax Itching of skin Active Medications Acetaminophen Tablet 650 mg, Tablet, By Mouth, Once, STAT, 08/09/21 10:17:00 EDT, Stop date 08/09/21 10:17:00 EDT Start Date: 08/09/21 Stop Date: 08/09/21 Status: Completed allopurinol 100 mg oral tablet 1 tablet, [...] 1,200 mL, 0 Refills, Maintenance,05/07/21 10:56:00 EST, [facility]/pharmacy #[id number], Partial fill upon patient request if the prescription isfor a schedule II opioid drug., 177.8, cm, 05/07/21... Start Date: 05/07/21 Status: Ordered Colace sodium 100 mg oral capsule 100 mg, 1, capsule, By Mouth, 2 times a day, PRN, # 100 capsule, Refills 0, Tot. Refills 0, Maintenance, for constipation, 05/27/21 14:45:00 EDT, Route to Pharmacy Electronically, [facility], Partial fill upon patient request [...] 02/26/21 16:36:00 EST, Route to Pharmacy Electronically, [facility], Partial fill upon patient request if the prescription is for a schedule II opioi... Start Date: 02/26/21 Status: Ordered metoprolol 50 mg oral tablet, extended release 75 mg, 1.5, tablet, By Mouth, 2 times a day, # 90 tablet, Refills 0, Tot. Refills 0, Maintenance, 01/25/21 10:53:00 EST, Route to Pharmacy Electronically, [facility], Partial fill upon patient request [...] 0 Refills, Maintenance, 01/25/21 10:54:00 EST, Tablet, [facility], Partial fill upon patient request [...] cardiac catheterization(Confirmed) Active Episode of syncope(Confirmed) Active Vital Signs Most recent to oldest [Reference Range]: 1 2 3 Oxygen Saturation [94-100 %] 99 % (08/09/21 4:00 PM) 100 % (08/09/21 1:00 PM) 100 % (08/09/21 9:51 AM) Pulse Rate [55-90 bpm] 65 bpm (08/09/21 4:00 PM) 65 bpm (08/09/21 1:00 PM) 60 bpm (08/09/21 9:51 AM) Blood Pressure [90-138/55-84 mm Hg] 160/90mm Hg *H* (08/09/21 4:00 PM) 161/97mm Hg *H* (08/09/21 1:00 PM) 168/81mm Hg *H* (08/09/21 9:51 AM) Respiratory Rate [16-30 br/min] 18 br/min (08/09/21 4:00 PM) 14 br/min *L* (08/09/21 1:00 PM) 20 br/min (08/09/21 11:24 AM) Temperature [96.8-100.4 DegF] 98.0 DegF (08/09/21 9:51 AM) 97.5 DegF (08/09/21 7:15 AM) 98.7 DegF (08/09/21 5:56 AM) Mode of Delivery (Oxygen) Room air (08/09/21 4:00 PM) Room air (08/09/21 1:00 PM) Room air (08/09/21 9:51 AM) Blood pressure sites Arm, left (08/09/21 4:00 PM) Arm, left (08/09/21 1:00 PM) Arm, left (08/09/21 9:51 AM) Temperature Route Oral (08/09/21 9:51 AM) Oral (08/09/21 7:15 AM) Oral (08/09/21 5:56 AM) Social History Social History Type Response Smoking Status Never (less than 100 in lifetime) entered on: 10/21/19 Sex Medical Equipment Implanted Date:06/24/21Target Site:Groin Left Description Quantity MRI Quitt.ch Model MESH 3D MAX MID X-LG LT 5X7I N - BARD ([id number]) 1 Bard Unknown ADALI:{01}[id number] Assigning Author ity:FDA Implanted Date:06/24/21Target Site:Groin Right Description Quantity MRI Quitt.ch Model MESH 3D MAX MID LG RT 4X6IN - BARD ([id number]) 1 Bard Unknown ADALI:{01}[id number]{17}[id number]{10}HUFY AB06 Assigning Authority:FDA
--- OUTSIDE RECORDS SUMMARY | 2022-08-13 11:24 | XMS_ITS | Continuity of Care Document ---
Author Name Unknown Organization [facility] ter Address [address] [place] [address]- Care Team Providers Care Drywall Professional Name Role Phone Naseem Alford MD Primary Care Physician [phone] Encounter [facility] [place] Date(s): 03/13/21 - 03/14/[address] [address]- Encounter Diagnosis Chest pain(Final) - 03/13/21 Syncope(Final) - 03/13/21 Discharge Disposition: A-D/C Home Attending Physician: Faith Tee MD Admitting Physician: Mirna Vo MD Referring Physician: Not on Staff, Referring MD Allergies, Adverse Reactions, Alerts No Known Allergies Medications allopurinol 100 mg oral tablet 1 [...] Start Date: 01/31/21 Status: Ordered Carafate 1 gm oral tablet 1 Gm, 1, tablet, By Mouth, 3 times a day before meals and bedtime, # 120 tablet, Refills 0, Tot. Refills 0, Maintenance, 02/26/21 10:51:00 EST, Route to Pharmacy Electronically, [facility], Partial fill upon patient request if the prescr... Start Date: 02/26/21 Status: Ordered Dilaudid Inj 0.5 mg, Injection, IV Push Slowly, Every 15 minutes for 3 doses/times, PRN for Pain , Moderate, andSBP greater than 100, STAT, 03/13/21 11:12:00 EST, Stop date Limited # of times Start Date: 03/13/21 Stop Date: 03/14/21 Status: Completed isosorbide mononitrate 30 mg oral tablet, extended release 1 tablet = 30 mg, By Mouth, Daily, # 30 tablet, 0 Refills, Maintenance, 01/25/21 10:54:00 EST, ER Tablet, [facility], Partial fill upon patient request if the prescription is for a schedule II opioid drug., 177.8, cm, 01/25/21 8:37:00 ES... Start Date: 01/25/21 Status: Ordered losartan 25 mg oral tablet 25 mg, 1, tablet, By Mouth, Daily, # 30 tablet, Refills 0, Tot. Refills 0, Maintenance, 02/26/21 16:36:00 EST, Route to Pharmacy Electronically, [facility], Partial fill upon patient request if the prescription is for a schedule II opioi... Start Date: 02/26/21 Status: Ordered losartan 25 mg oral tablet 25 mg, Tablet, By Mouth, 03/14/21 9:00:00 EST Start Date: 03/14/21 Stop Date: 03/14/21 Status: Completed metoprolol 50 mg oral tablet, extended release 75 mg, XL Tablet, By Mouth, 03/14/21 9:00:00 EST Start Date: 03/14/21 Stop Date: 03/14/21 Status: Completed metoprolol 50 mg oral tablet, extended release 75 mg, 1.5, tablet, By Mouth, 2 times a day, # 90 tablet, Refills 0, Tot. Refills 0, Maintenance, 01/25/21 10:53:00 EST, Route to Pharmacy Electronically, [facility], Partial fill upon patient [...] 0 Refills, Maintenance, 01/25/21 10:54:00 EST, Tablet, [facility], Partial fill upon patient request if the prescription is for aschedule II opioid drug., 177.8, cm, 01/25/21 8:37:... Start Date: 01/25/21 Status: Ordered Problem List Condition Effective Dates Status Health Status Inform ant Status post cardiac catheterization(Confirmed) Active Episode of syncope(Confirmed) Active Results Radiology Reports * Exam Date Time Procedure Performing Provider Status 03/13/21 11:53 AM Chest Portable Saida Ross; Aut h (Verified) Notes: (Chest Portable) Reason For Exam: Chest Pain;Other: RESULT: Chest Portable Chest Portable performed upright at 11:45 AM Reason: Other:; Chest Pain; Clinical Question(s): CHF COMPARISON: Multiple prior chest x-rays, the most recent of which is dated 02/24/2021. FINDINGS: LINES AND TUBES: None. LUNGS AND PLEURA: Clear lungs. Normal pulmonary vascularity. No pleural effusion. No pneumothorax. HEART, MEDIASTINUM AND TINY: Heart is normal in size. Normal upper mediastinal and hilar contour. BONES AND SOFT TISSUES: No acute bony abnormality. Surgical clips are seen in the upper abdomen. IMPRESSION: No acute abnormality. WSN: [id number] Ordering Physician: Rolanda Hernandez Dictated By: Iman Clement MD Dictated Date/Time: 03/13/21 12:00 p Reviewed By: Iman Clement MD Signed By: Iman Clement MD Signed Date/Time: 03/13/21 12:00 pm Transcribed By: LISA Transcribed Date/Time: 03/13/21 11:58 am Vital Signs Most recent to oldest [Reference Range]: 1 2 3 Height 178 cm (03/14/21 6:13 AM) 178 cm (03/14/21 4:37 AM) 178 cm (03/13/21 11:53 PM) Oxygen Saturation [94-100 %] 98 % (03/14/21 10:14 AM) 100 % (03/14/21 6:13 AM) 100 % (03/14/21 4:37 AM) Pulse Rate [55-90 bpm] 62 bpm (03/14/21 10:14 AM) 63 bpm (03/14/21 7:31 AM) 63 bpm (03/14/21 6:13 AM) Blood Pressure [90-138/55-84 mm Hg] 140/67mm Hg *H* (03/14/21 10:14 AM) 156/86mm Hg *H* (03/14/21 7:32 AM) 156/86mm Hg *H* (03/14/21 7:31 AM) Respiratory Rate [16-30 br/min] 18 br/min (03/14/21 10:14 AM) 18 br/min (03/14/21 9:37 AM) 19 br/min (03/14/21 6:24 AM) Temperature [96.8-100.4 DegF] 97.2 DegF (03/14/21 10:14 AM) 97.9 DegF (03/14/21 7:00 AM) 98.3 DegF (03/14/21 4:37 AM) Liters per Minute 0 L/min (03/13/21 8:33 PM) Mode of Delivery (Oxygen) Room air (03/14/21 10:14 AM) Room air (03/14/21 6:13 AM) Room air (03/14/21 4:37 AM) Blood pressure sites Arm, left (03/14/21 10:14 AM) Arm, left (03/14/21 6:13 AM) Arm, left (03/14/21 4:37 AM) Temperature Route Oral (03/14/21 10:14 AM) Oral (03/14/21 7:00 AM) Oral (03/14/21 4:37 AM) Dry Weight 87 kg (03/13/21 5:37 PM) Social History Social History Type Response Smoking Status Never (less than 100 in lifetime) entered on: 10/21/19 Sex
--- OUTSIDE RECORDS SUMMARY | 2022-08-13 11:24 | XMS_ITS | Continuity of Care Document ---
Author Name Unknown Organization [facility] ter Address [address] [place] [phone]- Care Team Providers Care Shrimper Name Role Phone Naseem Alford MD Primary Care Physician Encounter [facility] [place] Date(s): 05/25/21 - 05/25/[address] [address]- Discharge Disposition: A-D/C Home Attending Physician: Fausto Zuniga MD Admitting Physician: Fausto Zuniga MD Referring Physician: Not on Staff, Referring [...] 1,200 mL, 0 Refills, Maintenance,05/07/21 10:56:00 EST, [id number], Partial fill upon patient request if the prescription isfor a schedule II opioid drug., 177.8, cm, 05/07/21... Start Date: 05/07/21 Status: Ordered Imdur 30 mg oral tablet, extended release 60 mg, By Mouth, Daily, Refills 0, Maintenance, 04/02/21 10:43:00 EST, Partial fill upon patient request if the prescription is for a schedule II opioid drug. Start Date: 04/02/21 Status: Ordered lidocaine 5% topical ointment 1 application, Topically, 3 times a day, for 7 days, # 50 Gm, 0 Refills, Acute 06/01/21 13:19:00 EDT, 05/25/21 13:19:00 EDT, Ointment, [facility], Partial fill upon patient request if the prescription is for a schedule II opioid drug., 1... Start Date: 05/25/21 Stop Date: 06/01/21 Status: Ordered losartan 25 mg oral tablet 25 mg, 1, tablet, By Mouth, Daily, # 30 tablet, Refills 0, Tot. Refills 0, Maintenance, 02/26/21 16:36:00 EST, Route to Pharmacy Electronically, [facility], Partial fill upon patient request if the prescription is for a schedule II opioi... Start Date: 02/26/21 Status: Ordered metoprolol 50 mg oral tablet, extended release 75 mg, 1.5, tablet, By Mouth, 2 times a day, # 90 tablet, Refills 0, Tot. Refills 0, Maintenance, 01/25/21 10:53:00 EST, Route to Pharmacy Electronically, [facility], Partial fill upon patient request [...] 0 Refills, Maintenance, 01/25/21 10:54:00 EST, Tablet, [facility], Partial fill upon patient request if the prescription is for aschedule II opioid drug., 177.8, cm, 01/25/21 8:37:... Start Date: 01/25/21 Status: Ordered Problem List Condition Effective Dates Status Health Status Inform ant Chest pain(Confirmed) Active Inguinal hernia of left side without obstruction or gangrene(Confirmed) Active Status post cardiac catheterization(Confirmed) Active Episode of syncope(Confirmed) Active Results Radiology Reports * Exam Date Time Procedure Performing Provider Status 05/25/21 9:00 AM Hand Min 3 Views Right Felipe Murguia na; Auth (Verified) Notes: (Hand Min 3 Views Right) Reason For Exam: Pain RESULT: Hand Min 3 Views Right Hand Min 3 Views Right INDICATION: Fall with pain COMPARISON: None. FINDINGS: No fractures or bone lesions. Mild joint space narrowing and marginal spurring at the first CMC joint. Otherwise no significant arthritic changes. Normal soft tissues. IMPRESSION: No acute osseous abnormality. I have personally reviewed the images and I agree with this report. WSN: [id number] Ordering Physician: Fausto Zuniga Dictated By: Demian Reyes DO Dictated Date/Time: 05/25/21 9:28 am Reviewed By: Olivier Hager MD Signed By: Olivier Hager MD Signed Date/Time: 05/25/21 9:33 am Transcribed By: LISA Transcribed Date/Time: 05/25/21 9:25 am Vital Signs Most recent to oldest [Reference Range]: 1 2 3 Oxygen Saturation [94-100 %] 97 % (05/25/21 1: PM) 98 % (05/25/21 12:02 PM) 100 % (05/25/21 10:11 AM) Pulse Rate [55-90 bpm] 69 bpm (05/25/21 1:27 PM) 58 bpm (05/25/21 12:02 PM) 74 bpm (05/25/21 10:11 AM) Blood Pressure [90-138/55-84 mm Hg] 116/63mm Hg (05/25/21 1:27 PM) 147/66mm Hg *H* (05/25/21 12:02 PM) 153/75mm Hg *H* (05/25/21 10:11 AM) Respiratory Rate [16-30 br/min] 17 br/min (05/25/21 1:27 PM) 18 br/min (05/25/21 12:02 PM) 16 br/min (05/25/21 10:11 AM) Temperature [96.8-100.4 DegF] 98.7 DegF (05/25/21 1:27 PM) 98.0 DegF (05/25/21 7:21 AM) Mode of Delivery (Oxygen) Room air (05/25/21 1:27 PM) Room air (05/25/21 12:02 PM) Room air (05/25/21 10:11 AM) Blood pressure sites Arm, left (05/25/21 1:27 PM) Arm, left (05/25/21 12:02 PM) Arm, right (05/25/21 10:11 AM) Temperature Route Oral (05/25/21 1:27 PM) Oral (05/25/21 7:21 AM) Social History Social History Type Response Smoking Status Never (less than 100 in lifetime) entered on: 10/21/19 Sex
--- OUTSIDE RECORDS SUMMARY | 2022-08-13 11:24 | XMS_ITS | Continuity of Care Document ---
Author Name Unknown Organization [facility] Address Unknown Care Team Providers Care Motor Vehicle Escort Driver Name Role Phone Naseem Alford MD Primary Care Physician Encounter [facility] [place](s): 06/17/21 - 07/17/21 [facility] Allergies, Adverse Reactions, Alerts Substance [...] 1,200 mL, 0 Refills, Maintenance,05/07/21 10:56:00 EST, [facility]acy #[id number], Partial fill upon patient request if the prescription isfor a schedule II opioid drug., 177.8, cm, 05/07/21... Start Date: 05/07/21 Status: Ordered Colace sodium 100 mg oral capsule 100 mg, 1, capsule, By Mouth, 2 times a day, PRN, # 100 capsule, Refills 0, Tot. Refills 0, Maintenance, for constipation, 05/27/21 14:45:00 EDT, Route to Pharmacy Electronically, [facility], Partial fill upon patient [...] 02/26/21 16:36:00 EST, Route to Pharmacy Electronically, [facility], Partial fill upon patient request if the prescription is for a schedule II opioi... Start Date: 02/26/21 Status: Ordered metoprolol 50 mg oral tablet, extended release 75 mg, 1.5, tablet, By Mouth, 2 times a day, # 90 tablet, Refills 0, Tot. Refills 0, Maintenance, 01/25/21 10:53:00 EST, Route to Pharmacy Electronically, [facility], Partial fill upon patient [...] 0 Refills, Maintenance, 01/25/21 10:54:00 EST, Tablet, [facility], Partial fill upon patient [...] Equipment Implanted Date:06/24/21Target Site:Groin Left Description Quantity Widdle Model MESH 3D MAX MID X-LG LT 5X7I N - BARD ([id number]) 1 Bard Unknown ADALI:{01}[id number] Assigning Author ity:FDA Implanted Date:06/24/21Target Site:Groin Right Description Quantity MRI ChannelEyes Model MESH 3D MAX MID LG RT 4X6IN - BARD ([id number]) 1 Bard Unknown ADALI:{01}[id number]{17}[id number]{10}HUFY AB06 Assigning Authority:FDA
--- OUTSIDE RECORDS SUMMARY | 2022-08-13 11:25 | XMS_ITS | Continuity of Care Document ---
Author Name Unknown Organization [facility] Address Unknown Care Team Providers Care Scientist Engineer Name Role Phone Naseem Alford MD Primary Care Physician Encounter [facility] [place] Date(s): 06/11/21 - 07/31/21 [facility] Attending Physician: Lv Francois Referring Physician: Naseem Alford MD Allergies, Adverse [...] 1,200 mL, 0 Refills, Maintenance,05/07/21 10:56:00 EST, [facility]/pharmacy #[id number], Partial fill upon patient request if the prescription isfor a schedule II opioid drug., 177.8, cm, 05/07/21... Start Date: 05/07/21 Status: Ordered Colace sodium 100 mg oral capsule 100 mg, 1, capsule, By Mouth, 2 times a day, PRN, # 100 capsule, Refills 0, Tot. Refills 0, Maintenance, for constipation, 05/27/21 14:45:00 EDT, Route to Pharmacy Electronically, [facility], Partial fill upon [...] 02/26/21 16:36:00 EST, Route to Pharmacy Electronically, [facility], Partial fill upon patient request if the prescription is for a schedule II opioi... Start Date: 02/26/21 Status: Ordered metoprolol 50 mg oral tablet, extended release 75 mg, 1.5, tablet, By Mouth, 2 times a day, # 90 tablet, Refills 0, Tot. Refills 0, Maintenance, 01/25/21 10:53:00 EST, Route to Pharmacy Electronically, [facility], Partial fill upon patient request if [...] 0 Refills, Maintenance, 01/25/21 10:54:00 EST, Tablet, [facility], Partial fill upon [...] Equipment Implanted Date:06/24/21Target Site:Groin Left Description Quantity Glycobia Model MESH 3D MAX MID X-LG LT 5X7I N - BARD ([id number]) 1 Bard Unknown ADALI:{01}[id number] Assigning Author ity:FDA Implanted Date:06/24/21Target Site:Groin Right Description Quantity MRI View the Space Model MESH 3D MAX MID LG RT 4X6IN - BARD ([id number]) 1 Bard Unknown ADALI:{01}[id number]{17}[id number]{10}HUFY AB06 Assigning Authority:FDA
--- OUTSIDE RECORDS SUMMARY | 2022-08-13 11:25 | XMS_ITS | Continuity of Care Document ---
Author Name Unknown Organization [facility] ter Address [address] [place] [phone]- Care Team Providers Care Verification Manager Name Role Phone Naseem Alford MD Primary Care Physician [place] [facility] [place]13[place] - 02/13/[address] [address]- Encounter Diagnosis Unstable angina(Final) - 02/13/21 Discharge Disposition: A-D/C Home Attending Physician: Abdullahi Pal DO Admitting Physician: Abdullahi Pal DO Referring Physician: Not on Staff, Referring [...] opioid drug. Start Date: 01/31/21 Status: Ordered Dilaudid Inj 0.5 mg, Injection, IV Push Slowly, Once, STAT, 02/13/21 8:14:00 EST, Stop date 02/13/21 8:14:00 EST Start Date: 02/13/21 Stop Date: 02/13/21 Status: Completed isosorbide mononitrate 30 mg oral tablet, extended release 1 tablet = 30 mg, By Mouth, Daily, # 30 tablet, 0 Refills, Maintenance, 01/25/21 10:54:00 EST, ER Tablet, [facility], Partial fill upon patient request if the prescription is for a schedule II opioid drug., 177.8, cm, 01/25/21 8:37:00 ES... Start Date: 01/25/21 Status: Ordered lisinopril 5 mg oral tablet 5 mg, 1, tablet, By Mouth, Daily, # 30 tablet, Refills 0, Tot. Refills 0, Maintenance, 01/25/21 10:51:00 EST, Route to Pharmacy Electronically, [facility], Partial fill upon patient request if the prescription is for a schedule II opioid... Start Date: 01/25/21 Status: Ordered metoprolol 50 mg oral tablet, extended release 75 mg, 1.5, tablet, By Mouth, 2 times a day, # 90 tablet, Refills 0, Tot. Refills 0, Maintenance, 01/25/21 10:53:00 EST, Route to Pharmacy Electronically, [facility], Partial fill upon patient request if the prescription is for a schedul... Start Date: 01/25/21 Status: Ordered nitroglycerin 0.4 mg sublingual tablet 1 tablet = 0.4 mg, Sublingual, Every 5 minutes, PRN as needed for chest pain, not to exceed 3 doses/15 min--if pain persists, seek medical attention, Maintenance, 10/29/20 10:56:00 EDT, Tablet, ; Start Date: 10/29/20 Status: Ordered ticagrelor 90 mg oral tablet 1 tablet = 90 mg, By Mouth, 2 times a day, # 60 tablet, 0 Refills, Maintenance, 01/25/21 10:54:00 EST, Tablet, [facility], Partial fill upon patient request if the prescription is for aschedule II opioid drug., 177.8, cm, 01/25/21 8:37:... Start Date: 01/25/21 Status: Ordered Problem List Condition Effective Dates Status Health Status Inform ant Status post cardiac catheterization(Confirmed) Active Episode of syncope(Confirmed) Active Results Radiology Reports * Exam Date Time Procedure Performing Provider Status 02/13/21 7:24 AM Chest Portable EkenSubha sweet; Auth (Verified) Notes: (Chest Portable) Reason For Exam: Shortness of Breath RESULT: Chest Portable Chest Portable, AP semiupright at 7:20 AM. Refer to EMR; Hx of Present Illness: pt states that apprxo 1 hour NP woke up with severe chest pain, states that he had 1 stent placed after Thanksgiving and was told that he needed open heart surgery but then was sent home to [facility] , patient currently endoring 10 10 chest pain; Reason: Shortness of Breath; Clinical Question(s): CHF; COMPARISON: Multiple priors, most recent 01/30/2021. CTA chest 01/30/2021. FINDINGS: LINES AND TUBES: None. LUNGS AND PLEURA: Low lung volumes with likely mild basilar atelectasis. Lungs are otherwise clear with no consolidation. No pleural effusion. No pneumothorax. HEART, MEDIASTINUM AND TINY: Heart is normal in size. Normal upper mediastinal and hilar contour. BONES AND SOFT TISSUES: No acute abnormality. Suture material noted in the upper abdomen. IMPRESSION: Low lung volumes with likely mild basilar atelectasis. I have personally reviewed the images and I agree with this report. WSN: [id number] Ordering Physician: Ivis Mcgee Dictated By: Samuel Junior DO Dictated Date/Time: 02/13/21 8:55 am Reviewed By: Franck Aviles MD Signed By: Franck Aviles MD Signed Date/Time: 02/13/21 9:00 am Transcribed By: LISA Transcribed Date/Time: 02/13/21 8:25 am Vital Signs Most recent to oldest [Reference Range]: 1 2 3 Height 175 cm (02/13/21 4:33 AM) Weight 86 kg (02/13/21 4:33 AM) Oxygen Saturation [94-100 %] 99 % (02/13/21 12:23 PM) 95 % (02/13/21 8:29 AM) 96 % (02/13/21 8:24 AM) Pulse Rate [55-90 bpm] 69 bpm (02/13/21 12:23 PM) 70 bpm (02/13/21 10:34 AM) 83 bpm (02/13/21 8:29 AM) Blood Pressure [90-138/55-84 mm Hg] 146/68mm Hg *H* (02/13/21 12:23 PM) 131/85mm Hg (02/13/21 10:34 AM) 96/62mm Hg (02/13/21 8:29 AM) Respiratory Rate [16-30 br/min] 16 br/min (02/13/21 12:23 PM) 16 br/min (02/13/21 10:34 AM) 16 br/min (02/13/21 8:49 AM) Temperature [96.8-100.4 DegF] 98.2 DegF (02/13/21 4:33 AM) 98.2 DegF (02/13/21 4:21 AM) Mode of Delivery (Oxygen) Room air (02/13/21 12:23 PM) Room air (02/13/21 8:29 AM) Room air (02/13/21 8:24 AM) Temperature Route Oral (02/13/21 4:33 AM) Oral (02/13/21 4:21 AM) Dry Weight 86 kg (02/13/21 4:33 AM) Weight Obtained Via Patient/family state d (02/13/21 4:33 AM) Dry Weight Obtained Via Patient/family s tated (02/13/21 4:33 AM) Social History Social History Type Response Smoking Status Never (less than 100 in lifetime) entered on: 10/21/19 Sex
--- OUTSIDE RECORDS SUMMARY | 2022-08-13 11:25 | XMS_ITS | Continuity of Care Document ---
Author Name Unknown Organization [facility] ter Address [address] [place] [id number]- Care Team Providers Care Professor Of Biostatistics Name Role Phone Naseem Alford MD Primary Care Physician Encounter [facility] [place] Date(s): 02/24/21 - 02/26/[address] [address] Discharge Disposition: A-D/C Home Attending Physician: Bertrand MCRAE, Melinda North Admitting Physician: Cody Oliva MD Referring Physician: Not on Staff, Referring MD Allergies, Adverse Reactions, Alerts Substance Reaction Severity Status NKA Active Medications allopurinol 100 mg oral tablet 1 tablet, By Mouth, Daily before dinner, 0 Refills, Maintenance, 11/05/13 22:43:57 EDT, Tablet Start Date: 11/05/13 Status: Ordered aluminum hydroxide/magnesium hydroxide/simethicone 200 mg-200 mg-20 mg/5 mL oral suspension 10 mL, By Mouth, 4 times a day, PRN for control of stomach acid, # 400 mL, 0 Refills, Acute 03/05/21 16:38:00 EST, 02/26/21 16:38:00 EST, Suspension, [facility], Partial fill upon patient request if the prescription is for a schedule II... Start Date: 02/26/21 Stop Date: 03/05/21 Status: Ordered Aspir 81 Oral Enteric Coated [...] 02/26/21 10:51:00 EST, Route to Pharmacy Electronically, [facility], Partial fill upon patient request if the prescr... Start Date: 02/26/21 Status: Ordered isosorbide mononitrate 30 mg oral tablet, extended release 1 tablet = 30 mg, By Mouth, Daily, # 30 tablet, 0 Refills, Maintenance, 01/25/21 10:54:00 EST, ER Tablet, [facility], Partial fill upon patient request if the prescription is for a schedule II opioid drug., 177.8, cm, 01/25/21 8:37:00 ES... Start Date: 01/25/21 Status: Ordered losartan 25 mg oral tablet 25 mg, 1, tablet, By Mouth, Daily, # 30 tablet, Refills 0, Tot. Refills 0, Maintenance, 02/26/21 16:36:00 EST, Route to Pharmacy Electronically, [facility], Partial fill upon patient request if the prescription is for a schedule II opioi... Start Date: 02/26/21 Status: Ordered metoprolol 50 mg oral tablet, extended release 75 mg, XL Tablet, By Mouth, 02/26/21 9:00:00 EST Start Date: 02/26/21 Stop Date: 02/26/21 Status: Completed metoprolol 50 mg oral tablet, extended release 75 mg, 1.5, tablet, By Mouth, 2 times a day, # 90 tablet, Refills 0, Tot. Refills 0, Maintenance, 01/25/21 10:53:00 EST, Route to Pharmacy Electronically, [facility], Partial fill upon patient [...] release tablet = 40 mg, By Mouth, Daily, # 30 tablet, 0 Refills, Maintenance, 02/26/21 10:51:00 EST, EC Tablet, 177.8, cm, 02/26/21 6:59:00 EST, Height, 85.8, kg, 02/24/21 14:31:00 EST, Dry Weight Start Date: 02/26/21 Status: Ordered ticagrelor 90 mg oral tablet 1 tablet = 90 mg, By Mouth, 2 times a day, # 60 tablet, 0 Refills, Maintenance, 01/25/21 10:54:00 EST, Tablet, [facility], Partial fill upon patient request if the prescription is for aschedule II opioid drug., 177.8, cm, 01/25/21 8:37:... Start Date: 01/25/21 Status: Ordered Problem List Condition Effective Dates Status Health Status Inform ant Status post cardiac catheterization(Confirmed) Active Episode of syncope(Confirmed) Active Results Radiology Reports * Exam Date Time Procedure Performing Provider Status 02/24/21 5:04 AM Chest 2 Views Frontal and Lat Aleta Rivera; Jerrica (Verified) Notes: (Chest 2 Views Frontal and Lat) Reason For Exam: Chest Pain;Other: RESULT: Chest 2 Views Frontal and Lat Chest 2 Views Frontal and Lat Hx of Present Illness: woke [employer] with left anterior cp radiating to left arm with dizziness, reportssyncopal event when trying to stand up from bed, came to lying in bed, unsure how long he was out. stent placed 1 month [employer]; Reason: Other:; Chest Pain; Clinical Question(s): Other: COMPARISON: 02/13/2021. FINDINGS: LINES AND TUBES: None. LUNGS AND PLEURA: Cluster of 3 mm nodules peripherally in the right midlung field likely correspond to some of the groundglass opacities seen on recent chest CT. The lungs are otherwise clear. Normal pulmonary vascularity. No pleural effusion. No pneumothorax. HEART, MEDIASTINUM AND TINY: Heart is normal in size. Normal upper mediastinal and hilar contour. BONES AND SOFT TISSUES: No acute abnormality. Surgical clips in the upper abdomen. IMPRESSION: No acute abnormality. Cluster of small nodules in the right midlung field likely corresponding to the opacities on CT. Given presence of edema on prior CT. Follow-up in one year may be considered to document resolution. WSN: [id number] Ordering Physician: Marge Bergman Dictated By: Luke Gunter MD Dictated Date/Time: 02/24/21 7:13 am Reviewed By: Luke Gunter MD Signed By: Luke Gunter MD Signed Date/Time: 02/24/21 7:13 am Transcribed By: LISA Transcribed Date/Time: 02/24/21 7:10 am Vital Signs Most recent to oldest [Reference Range]: 1 2 3 Height 177.8 cm (02/26/21 4:03 PM) 177.8 cm (02/26/21 6:59 AM) 177.8 cm (02/26/21 4:57 AM) Weight 85.8 kg (02/24/21 2:31 PM) Oxygen Saturation [94-100 %] 99 % (02/26/21 4:03 PM) 98 % (02/26/21 6:59 AM) 98 % (02/26/21 4:57 AM) Pulse Rate [55-90 bpm] 80 bpm (02/26/21 4:03 PM) 64 bpm (02/26/21 8:14 AM) 64 bpm (02/26/21 6:59 AM) Body Mass Index [18.5-24.99] 27.14 *H* (02/24/21 2:31 PM) Blood Pressure [90-138/55-84 mm Hg] 130/64mm Hg (02/26/21 4:03 PM) 132/66mm Hg (02/26/21 8:14 AM) 132/66mm Hg (02/26/21 6:59 AM) Respiratory Rate [16-30 br/min] 18 br/min (02/26/21 4:03 PM) 18 br/min (02/26/21 9:20 AM) 16 br/min (02/26/21 6:59 AM) Temperature [96.8-100.4 DegF] 97.5 DegF (02/26/21 4:03 PM) 97.9 DegF (02/26/21 6:59 AM) 98.4 DegF (02/26/21 4:57 AM) Mode of Delivery (Oxygen) Room air (02/26/21 4:03 PM) Room air (02/26/21 6:59 AM) Room air (02/26/21 4:57 AM) Blood pressure sites Arm, left (02/26/21 6:59 AM) Arm, left (02/26/21 4:57 AM) Arm, left (02/25/21 11:27 PM) Temperature Route Oral (02/26/21 4:03 PM) Oral (02/26/21 6:59 AM) Oral (02/26/21 4:57 AM) Dry Weight 85.8 kg (02/24/21 2:31 PM) Weight Obtained Via Bed scale (02/24/21 2:31 PM) Dry Weight Obtained Via Bed scale (02/24/21 2:31 PM) Social History Social History Type Response Smoking Status Never (less than 100 in lifetime) entered on: 10/21/19 Sex
--- OUTSIDE RECORDS SUMMARY | 2022-08-13 11:25 | XMS_ITS | Continuity of Care Document ---
Author Name Unknown Organization [facility] ter Address [address] [place] [id number]- Care Team Providers Care Bonded Structures Repairer Name Role Phone Naseem Alford MD Primary Care Physician [phone] [place] [facility] [place] - 05/31/[address] [address]- Encounter Diagnosis Left inguinal hernia(Final) - 05/31/21 Discharge Disposition: A-D/C Home Attending Physician: Joann Wilson DO Admitting Physician: Joann Wilson DO Referring Physician: Not on Staff, Referring [...] mL, 0 Refills, Maintenance,05/07/21 10:56:00 EST, [id number], Partial fill upon patient request if the prescription isfor a schedule II opioid drug., 177.8, cm, 05/07/21... Start Date: 05/07/21 Status: Ordered Colace sodium 100 mg oral capsule 100 mg, 1, capsule, By Mouth, 2 times a day, PRN, # 100 capsule, Refills 0, Tot. Refills 0, Maintenance, for constipation, 05/27/21 14:45:00 EDT, Route to Pharmacy Electronically, [facility], Partial fill upon patient request if the pres... Start Date: 05/27/21 Status: Ordered FENTanyl Inj 50 mcg, Injection, IV Push Slowly, Once, STAT, 05/31/21 9:41:00 EDT, Stop date 05/31/21 9:41:00 EDT Start Date: 05/31/21 Stop Date: 05/31/21 Status: Completed Imdur 30 mg oral tablet, extended release [...] 06/01/21 13:19:00 EDT, 05/25/21 13:19:00 EDT, Ointment, [facility], Partial fill upon patient request if the prescription is for a schedule II opioid drug., 1... Start Date: 05/25/21 Stop Date: 06/01/21 Status: Ordered losartan 25 mg oral tablet 25 mg, 1, tablet, By Mouth, Daily, # 30 tablet, Refills 0, Tot. Refills 0, Maintenance, 02/26/21 16:36:00 EST, Route to Pharmacy Electronically, [facility], Partial fill upon patient request if the prescription is for a schedule II opioi... Start Date: 02/26/21 Status: Ordered metoprolol 50 mg oral tablet, extended release 75 mg, 1.5, tablet, By Mouth, 2 times a day, # 90 tablet, Refills 0, Tot. Refills 0, Maintenance, 01/25/21 10:53:00 EST, Route to Pharmacy Electronically, [facility], Partial fill upon patient request [...] 0 Refills, Maintenance, 01/25/21 10:54:00 EST, Tablet, [facility], Partial fill upon patient request [...] 1 2 3 Oxygen Saturation [94-100 %] 100 % (05/31/21 2:15 PM) 100 % (05/31/21 12:09 PM) 100 % (05/31/21 9:27 AM) Pulse Rate [55-90 bpm] 60 bpm (05/31/21 2:15 PM) 63 bpm (05/31/21 12:09 PM) 56 bpm (05/31/21 9:27 AM) Blood Pressure [90-138/55-84 mm Hg] 130/60mm Hg (05/31/21 2:15 PM) 119/57mm Hg (05/31/21 12:09 PM) 160/74mm Hg *H* (05/31/21 9:27 AM) Respiratory Rate [16-30 br/min] 16 br/min (05/31/21 2:15 PM) 16 br/min (05/31/21 12:09 PM) 16 br/min (05/31/21 10:59 AM) Temperature [96.8-100.4 DegF] 98.1 DegF (05/31/21 2:15 PM) 98 DegF (05/31/21 12:09 PM) 97.9 DegF (05/31/21 9:27 AM) Mode of Delivery (Oxygen) Room air (05/31/21 2:15 PM) Room air (05/31/21 12:09 PM) Room air (05/31/21 9:27 AM) Temperature Route Oral (05/31/21 2:15 PM) Oral (05/31/21 12:09 PM) Oral (05/31/21 9:27 AM) Social History Social History Type Response Smoking Status Never (less than 100 in lifetime) entered on: 05/31/21 Sex
--- OUTSIDE RECORDS SUMMARY | 2022-08-13 11:25 | XMS_ITS | Continuity of Care Document ---
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 Labs ?? BLOOD COUNT & DIFF ??Abs. Imm Gran ??0.0 k/mm3 () ??06/29/2022 16:17 ??Abs. NRBC ??0.0 k/mm3 () ??06/29/2022 16:17 ??Hct ??35.5 % (Low) ??06/29/2022 16:17 ??Hgb ??11.7 Gm/dL (Low) ??06/29/2022 16:17 ??Imm Gran ??0.1 % () ??06/29/2022 16:17 ??MCV ??99.4 femtoliters (High) ??06/29/2022 16:17 ??[place] % ??10.7 % (High) ??06/29/2022 16:17 ??Nucleated RBC (Automated) ??0.0 #/100 WBC'S () ??06/29/2022 16:17 ??RBC ??3.57 m/mm3 (Low) ??06/29/2022 16:17 ??RDW-SD ??48.3 femtoliters (High) ??06/29/2022 16:17 ? CHEM GENERAL ??AG Ratio ??2.3 () ??06/29/2022 16:18 ??Chloride ??109 mmol/L (High) ??06/29/2022 16:18 ??Estimated GFR Creatinine ??80 ML/MIN/1.73 M2 () ??06/29/2022 16:18 ? UA/URINALYSIS ??Albumin, Urine ??TRACE (Abnormal) ??06/29/2022 17:00 ??Appear/Color, Urine ??LIGHT YELLOW () ??06/29/2022 17:00 ??Bilirubin, Urine ??NEGATIVE () ??06/29/2022 17:00 ??Glucose, Urine ??NEGATIVE () ??06/29/2022 17:00 ??Hemoglobin, Urine ??NEGATIVE () ??06/29/2022 17:00 ??Hold Urine Culture ??Testing available 48 hours from time of collection. () ??06/29/2022 17:00 ??Ketones, Urine ??NEGATIVE () ??06/29/2022 17:00 ??Leukocyte, Urine ??NEGATIVE () ??06/29/2022 17:00 ??Mucus ??SLIGHT /LPF () ??06/29/2022 17:00 ??Nitrite, Urine ??NEGATIVE () ??06/29/2022 17:00 ??Urobilinogen ??NORMAL mg/dL () ??06/29/2022 17:00 ? Note: Critical results are displayed in red. ? Blood Glucose Trend Glucose Level: 83 mg/dL (06/29/22 16:18:00) ? CBC, CBC w/Diff?? CBC?? Differential?? WBC: 6.7 k/mm3 (16:17) Abs. Neut: 4.2 k/mm3 (16:17) RBC:??3.57 m/mm3??Low (16:17) Abs. Lymph: 1.5 k/mm3 (16:17) Hct:??35.5 %??Low (16:17) Abs. [place]: 0.7 k/mm3 (16:17) RDW-SD:??48.3 femtoliters??High (16:17) Abs. Eo: 0.2 k/mm3 (16:17) Nucleated RBC (Automated): 0 #/100 WBC'S (16:17) Abs. Baso: 0 k/mm3 (16:17) Abs. NRBC: 0 k/mm3 (16:17) Neut %: 62 % (16:17) ?? Lymph %: 23 % (16:17) ?? [place] %:??10.7 %??High (16:17) ?? Eos %: 3.6 % (16:17) ?? Baso %: 0.6 % (16:17) ?? Imm Gran: 0.1 % (16:17) ?? Abs. Imm Gran: 0 k/mm3 (16:17) ? BMP, Mg, and Phos Anion Gap: 9 (16:18) Bicarbonate Level: 25 mmol/L (16:18) BUN: 21 mg/dL (16:18) Calcium: 9.6 mg/dL (16:18) Chloride:??109 mmol/L??High (16:18) Creatinine-Blood: 1 mg/dL (16:18) Estimated GFR Creatinine: 80 ML/MIN/1.73 M2 (16:18) Glucose Level: 83 mg/dL (16:18) Potassium: 4.5 mmol/L (16:18) Sodium: 143 mmol/L (16:18) ?? Coagulation Profile?? No qualifying data available. ?? LFT Albumin: 4.4 Gm/dL (16:18) Alkaline Phosphatase: 114 units/L (16:18) ALT (SGPT): 28 units/L (16:18) AST (SGOT): 26 units/L (16:18) Bilirubin, Total: 0.6 mg/dL (16:18) ?? Urinalysis Albumin, Urine: TRACE Abnormal (17:00) Appear/Color, Urine: LIGHT YELLOW (17:00) Bilirubin, Urine: NEGATIVE (17:00) Est Creatinine Clearance: 73.18 mL/min (17:02) Glucose, Urine: NEGATIVE (17:00) Hemoglobin, Urine: NEGATIVE (17:00) Hold Urine Culture: Testing available 48 hours from time of collection. (17:00) Ketones, Urine: NEGATIVE (17:00) Leukocyte, Urine: NEGATIVE (17:00) Mucus: SLIGHT (17:00) Nitrite, Urine: NEGATIVE (17:00) pH, Urine: 5.5 (17:00) RBC's, Urine: 2 /HPF (17:00) Specific [place], Urine: 1.029 (17:00) Squamous Epith: <1 (17:00) Urobilinogen: NORMAL (17:00) WBC's, Urine: 1 /HPF (17:00) ?? Microbiology ?? COVID-19 (2019 Novel Coronavirus) PCR?? Collected?? Source: Nasal Body Site: Nose Collected Dt/Tm: 06/30/2022 05:33 Last Updated Dt/Tm: 06/30/2022 05:33 ? Blood Gases?? No qualifying data available. ?? Uric/LDH?? No qualifying data available. ? EKG study * Event Display: ECG 12-Lead Authored Date: Please click on pdf link to open report * Event Display: ECG 12-Lead Authored Date: Ventricular Rate: 61 BPM Atrial Rate: 61 BPM P-R Interval: 154 ms QRS Duration: 138 ms Q-T Interval: 462 ms QTC Calculation(Bazett): 465 ms P Davenport: 61 degrees R Daven[place]: 4 degrees T Davenport: 71 degrees Normal sinus rhythm Possible Left atrial enlargement Left bundle branch block Abnormal ECG When compared with ECG of 21-JUN-2022 06:17, No significant change was found Confirmed by GENESIS ALMODOVAR MD ([id number]) on 07/01/2022 9:47:45 AM [place] * Rosmery Bonds RN: PERFORM, SIGN, VERIFY Event Display: Progress [facility] Authored Date: Patient: FERMÍN AMATO Age: 67 years Sex: Male : 1955 Associated Diagnoses: None Author: Rosmery Bonds RN Findings Problem Related to Alteration in Gastrointestinal : Alteration in Gastrointestinal Func/new 06/30/2022 19:00 EDT Alteration in GI status Related to Gastric Hemorrhage Goals & Outcomes, Gastrointestinal Establish a regular pattern of elimination for pt, Nutritional intake is adequate for metabolic needs, Pt will achieve normal/improved fluid balance, Pt will have a bowel movement prior to discharge, Pt will maintain adequate GI function appropriate for pt, Ptwill maintain normal elimination patterns, Pt will resume/maintain adequate hemodynamic status, Pt w ill tolerate age appropriate diet prior to discharge, Gastric drainage will exhibit progressive clearing, Tissue perfusion will return to baseline Interventions, Gastrointestinal Assess/monitor abdomen for distention, tenderness, Assess/monitor abdominal girth & bowel function, Assess/monitor bowel pattern, bowel sounds, flatus, Assess/monitor number of bowel movements, Assess/monitor color, quantity, quality, consistency of stoo, Assess/monitor pt for nausea, vomiting, Assess/monitor effects of re-hydration, Assess/monitor intake &output, Assess if pt tolerating diet BH Goals/Interventions, Gastrointestinal Yes Gastrointestinal, Problem Start 06/30/2022 13:06 Reviewed plan with, Gastrointestinal Patient Patient Progression, Gastrointestinal Plan Initiation . Evaluation Pt assessed, A/Ox3, c/o 10/08 LLQ pain, IV Morphine administered, VSS, LS CTA, denies chest pain, noedema noted, Denies N/V/D, Last BM 06/29/22, +BS in all 4 qudrants, Tolerated PM meds and food without any problem. Esducated pt on the plan of care, fall and safety precautions in place, bed alarm palced next to pt. Will continue to monitor.. * Fredi Medel RN: PERFORM, SIGN, VERIFY Event Display: Progress Note Hospital Authored Date: Patient: FERMÍN AMATO Age: 67 years Sex: Male : 1955 Associated Diagnoses: None Author: Fredi Medel RN Findings Problem Related to Alteration in Gastrointestinal : Alteration in Gastrointestinal Func/new 06/30/2022 13:00 EDT Alteration in GI status Related to Gastric Hemorrhage Goals & Outcomes, Gastrointestinal Establish a regular pattern of elimination for pt, Nutritional intake is adequate for metabolic needs, Pt will achieve normal/improved fluid balance, Pt will have a bowel movement prior to discharge, Pt will maintain adequate GI function appropriate for pt, Ptwill maintain normal elimination patterns, Pt will resume/maintain adequate hemodynamic status, Pt w ill tolerate age appropriate diet prior to discharge, Gastric drainage will exhibit progressive clearing, Tissue perfusion will return to baseline Interventions, Gastrointestinal Assess/monitor abdomen for distention, tenderness, Assess/monitor abdominal girth & bowel function, Assess/monitor bowel pattern, bowel sounds, flatus, Assess/monitor number of bowel movements, Assess/monitor color, quantity, quality, consistency of stoo, Assess/monitor pt for nausea, vomiting, Assess/monitor effects of re-hydration, Assess/monitor intake &output, Teach Pt/caregiver diet & give copy of dietary instructions, Teach Pt/caregiver re: importance of bowel regime, Teach Pt/caregiver re: nutritional intake & dietary restrict, Teach/encourage use of incentive spirometer, Assess/monitor blood loss, Assess/monitor for s/s of hypovolemia, Assess origin of gastritis BH Goals/Interventions, Gastrointestinal Yes Gastrointestinal, Problem Start 06/30/2022 13:06 Reviewed plan with, Gastrointestinal Patient Patient Progression, Gastrointestinal Plan Initiation . Nursing Data Vital Signs : VITAL SIGNS SECTION 06/30/2022 10:38 EDT Temperature 98.0 DegF Temperature Route Oral Pulse Rate 65 bpm Respiratory Rate 18 br/min Systolic Blood Pressure 173 mm Hg H Diastolic Blood Pressure 67 mm Hg Blood pressure sites Arm, right Mean Arterial Pressure 102 mm Hg Pulse Pressure 106 mm Hg Oxygen Saturation 100 % Mode of Delivery (Oxygen) Room air . Evaluation A&Ox4, VSS, endorses abdominal pain pt stated he did not need anything for pain at this time. No vomiting since prior to admission. Call wyatt within reach and safety measures maintained. Purposeful rounding done. See CIS for full biophysical.. Note * Sheila Brown RN: PERFORM Event Display: Discharge/Transfer Note Hospital Authored Date: [id number] Nursing Discharge Note Entered On: 07/01/2022 12:55 EDT Performed On: 07/01/2022 12:55 EDT by Sheila Brown RN Nursing Discharge Note 2 Discharge Time : 07/01/2022 12:18 EDT Discharge Level of Care at Discharge : Home/[facility] Patient Left Unit Via : Ambulatory Patient Accompanied Off Unit with : Other: Independent DC Instructions Provided & Signed by Pt : Yes Patient Understands D/C Instructions : Yes Patient Instructions Discharge Signed : Yes Did Pt have Specialty Bed or Wound Vac : No Sheila Brown RN - 07/01/2022 12:55 EDT * Clarisa Cervantes MD: PERFORM Event Display: Discharge/Transfer Note Hospital Authored Date: [id number] Patient: ??FERMÍN AMATO ? Age:??67 Years?Sex:??Male?:??1955?? Patient Information Discharge Location: [facility] Primary Care Physician: Naseem Alford MD Admit Date/Time: 06/30/22 05:48 Discharge Date/Time: 07/01/22 0900 Discharge Disposition Discharge Disposition: Home: No Services Discharge Diagnosis CAD (coronary artery disease) (I25.10) Upper GI bleed (K92.2) anastomotic ulcer gastritis _ Discharge Medications Allopurinol (allopurinol 100 mg oral tablet)?100?Milligram?1?tablet?By Mouth?Daily before dinner Aspirin (aspirin 81 mg oral delayed release tablet)?81?Milligram?1?tablet?By Mouth?Daily Atorvastatin (atorvastatin 80 mg oral tablet)?1?tab(s)?80?Milligram?By Mouth?Daily Fluticasone Nasal (Flonase 50 mcg/inh nasal spray)?1?spray(s)?Nares, Both?2 times a day?as needed?Nasal Congestion Isosorbide Mononitrate (isosorbide mononitrate 30 mg oral tablet, extended release)?1?tab(s)?30?Milligram?By Mouth?Daily in AM Losartan (losartan 25 mg oral tablet)?25?Milligram?1?tablet?By Mouth?Daily Metoprolol (metoprolol 50 mg oral tablet, extended release)?50?Milligram?1?tablet?ByMouth?Daily in AM Metoprolol (Metoprolol Succinate ER 25 mg oral tablet, extended release)?TAKE 1 TABLET BY MOUTH TWICE A DAY TAKE WITH 50MG TABLET FOR A TOTAL OF 75MG Omeprazole (omeprazole 40 mg oral enteric coated capsule)?1?capsule?40?Milligram?By Mouth?2 times a day?to be opened into apple sauce to allow better gastric absorption Sucralfate (Carafate 1 gm/10 ml oral suspension)?10?Milliliter?1?gram?By Mouth?3 times a day before meals and bedtime ? Medications Started Omeprazole (omeprazole 40 mg oral enteric coated capsule)?1?capsule?40?Milligram?By Mouth?2 times a day?to be opened into apple sauce to allow better gastric absorption Sucralfate (Carafate 1 gm/10 ml oral suspension)?10?Milliliter?1?gram?By Mouth?3 times a day before meals and bedtime Medications Discontinued none Doses Changed none PCP Follow-Up/Heads-Up Routine follow up for anemia Future Appointments Wednesday. 2022 10:30 AM EDT ?? 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 CT abd/pelvis showed no acute abnormality. His Hgb remained stable and he had no further episodes of coffee ground emesis. Gastroenterology was consulted who recommended??continue BID PPI capsule and carafate slurries. By??5/3/23 the patient was medically stable with significant improvement in initial presenting symptoms.??Patient is appropriate for discharge home. ?? Objective Measurements?? Height: 178 cm (07/01/22) Weight: 82 kg (06/30/22) Dry Weight: 82 kg (06/30/22) Body Mass Index:??25.88 kg/m2??High (06/30/22) ? Vital Signs?? Temperature: 98 DegF (07/01/22 07:30:00) Temperature Route: Oral (07/01/22 07:30:00) Pulse Rate: 67 bpm (07/01/22 07:30:00) Respiratory Rate: 18 br/min (07/01/22 07:30:00) Systolic Blood Pressure: 138 mm Hg (07/01/22 07:30:00) Diastolic Blood Pressure: 69 mm Hg (07/01/22 07:30:00) Blood pressure sites: Arm, right (07/01/22 07:30:00) Mean Arterial Pressure: 92 mm Hg (07/01/22 07:30:00) Pulse Pressure: 69 mm Hg (07/01/22 07:30:00) Oxygen Saturation: 99 % (07/01/22 07:30:00) Mode of Delivery (Oxygen): Room air (07/01/22 07:30:00) Early Warning Score: 3 (07/01/22 07:30:30) ? . Physical Exam General Appearance: The patient is??in NAD. Head: atraumatic EENT: MMM, no scleral icterus, EOMI Cardiovascular: RRR, no JVD Respiratory: ??Breath sounds clear, no wheezing, speaking full sentences, room air GI: Soft, nondistended, no rebound or guarding MS: ??No edema or erythema in the lower extremities. Peripheral sensation intact.?? Skin: warm, dry, no rashes Neuro: ??No slurred speech. ??Patient seen moving their upper and lower extremities independently. Psych: Alert and oriented, calm [facility] Angel Solares MD?? Patient Education Titles Upper Gastrointestinal (GI) Bleeding, Stable?? Follow-Up Appointments Added Follow Up ?Time Frame ?Comments Please avoid OTc pain medications including motrin, alleve, ibuprofen etc?you can take tylenol Prescription has been sent to pharmacy in [facility]?Protonix has been changed to omeprazole capsules. Naseem Alford MD?1 to 2 weeks?also for anemia Patient Instructions Take omeprazole 40mg twice daily, you can open the capsule and sprinkle into applesauce Continue taking Carafate as prescribed Follow up with your PCP as needed If you have further instances of blood vomit at home, significant weakness, palpitations, or chest pain please return to the ED. Post Discharge Care Discharge ?07/01/22 8:50:00 EDT Discharge Prescriptions ?ePrescribed, ??07/01/22 8:50:00 EDT Results Discharge Labs BLOOD COUNT & DIFF WBC 3.5 k/mm3 (Low)?? 07/01/2022 02:18 RBC 3.72 m/mm3 (Low)?? 07/01/2022 02:18 Hgb 11.6 Gm/dL (Low)?? 07/01/2022 02:18 Hct 35.9 % (Low)?? 07/01/2022 02:18 MCV 96.5 femtoliters (High)?? 07/01/2022 02:18 MCH 31.2 pg ()?? 07/01/2022 02:18 MCHC 32.3 g/dL (Low)?? 07/01/2022 02:18 Platelet Count 226 k/mm3 ()?? 07/01/2022 02:18 RDW-SD 46.6 femtoliters ()?? 07/01/2022 02:18 MPV 9.8 femtoliters ()?? 07/01/2022 02:18 Nucleated RBC (Automated) 0.0 #/100 WBC'S ()?? 07/01/2022 02:18 Abs. NRBC 0.0 k/mm3 ()?? 07/01/2022 02:18 Abs. Neut 4.2 k/mm3 ()?? 06/29/2022 16:17 Abs. Lymph 1.5 k/mm3 ()?? 06/29/2022 16:17 Abs. [place] 0.7 k/mm3 ()?? 06/29/2022 16:17 Abs. Eo 0.2 k/mm3 ()?? 06/29/2022 16:17 Abs. Baso 0.0 k/mm3 ()?? 06/29/2022 16:17 Neut % 62.0 % ()?? 06/29/2022 16:17 Lymph % 23.0 % ()?? 06/29/2022 16:17 [place] % 10.7 % (High)?? 06/29/2022 16:17 Eos % 3.6 % ()?? 06/29/2022 16:17 Baso % 0.6 % ()?? 06/29/2022 16:17 Imm Gran 0.1 % ()?? 06/29/2022 16:17 Abs. Imm Gran 0.0 k/mm3 ()?? 06/29/2022 16:17 ?? CHEM GENERAL Sodium 139 mmol/L ()?? 07/01/2022 02:18 Potassium 4.2 mmol/L ()?? 07/01/2022 02:18 Chloride 105 mmol/L ()?? 07/01/2022 02:18 Bicarbonate Level 24 mmol/L ()?? 07/01/2022 02:18 Anion Gap 10 ()?? 07/01/2022 02:18 Glucose Level 90 mg/dL ()?? 07/01/2022 02:18 BUN 13 mg/dL ()?? 07/01/2022 02:18 Creatinine-Blood 1.0 mg/dL ()?? 07/01/2022 02:18 Estimated GFR Creatinine 85 ML/MIN/1.73 M2 ()?? 07/01/2022 02:18 Calcium 9.6 mg/dL ()?? 07/01/2022 02:18 Protein, Total 6.3 Gm/dL ()?? 06/29/2022 16:18 Albumin 4.4 Gm/dL ()?? 06/29/2022 16:18 AG Ratio 2.3 ()?? 06/29/2022 16:18 Alkaline Phosphatase 114 units/L ()?? 06/29/2022 16:18 Lipase 47 units/L ()?? 06/29/2022 16:18 AST (SGOT) 26 units/L ()?? 06/29/2022 16:18 ALT (SGPT) 28 units/L ()?? 06/29/2022 16:18 Bilirubin, Total 0.6 mg/dL ()?? 06/29/2022 16:18 Lactate 1.6 mmol/L ()?? 06/29/2022 16:18 ? MISC. CHEMISTRY Hold Gel Top SPECIMEN DISCARDED AFTER 1 WEEK ()?? 06/30/2022 17:14 ? UA/URINALYSIS Appear/Color, Urine LIGHT YELLOW ()?? 06/29/2022 17:00 Specific [place], Urine 1.029 ()?? 06/29/2022 17:00 pH, Urine 5.5 ()?? 06/29/2022 17:00 Albumin, Urine TRACE (Abnormal)?? 06/29/2022 17:00 Glucose, Urine NEGATIVE ()?? 06/29/2022 17:00 Ketones, Urine NEGATIVE ()?? 06/29/2022 17:00 Bilirubin, Urine NEGATIVE ()?? 06/29/2022 17:00 Hemoglobin, Urine NEGATIVE ()?? 06/29/2022 17:00 Nitrite, Urine NEGATIVE ()?? 06/29/2022 17:00 Leukocyte, Urine NEGATIVE ()?? 06/29/2022 17:00 Urobilinogen NORMAL mg/dL ()?? 06/29/2022 17:00 WBC's, Urine 1 /HPF ()?? 06/29/2022 17:00 RBC's, Urine 2 /HPF ()?? 06/29/2022 17:00 Squamous Epith <1 /HPF ()?? 06/29/2022 17:00 Mucus SLIGHT /LPF ()?? 06/29/2022 17:00 Hold Urine Culture Testing available 48 hours from time of collection. ()?? 06/29/2022 17:00 ?? URINE OTHER Est Creatinine Clearance 73.18 mL/min ()?? 06/29/2022 17:02 ? VIROLOGY COVID-19 PCR Specimen Source NASAL ()?? 06/30/2022 06:17 COVID-19 PCR Result NEGATIVE ()?? 06/30/2022 06:17 ? Microbiology ?? COVID-19 (2019 Novel Coronavirus) PCR?? Completed?? Source: Nasal Body Site: Nose Collected Dt/Tm: 06/30/2022 05:33 Last Updated Dt/Tm: 07/01/2022 05:14 ?(06/29/2022 23:46 EDT Chest 2 Views Frontal and Lat) IMPRESSION: ?? No acute abnormality. [1] ? (06/30/2022 03:[address] Abd/Pelvis W/ IV Contrast Only) IMPRESSION:? 1. ??No acute abnormality in the abdomen or pelvis. 2. ??Unchanged dilatation of the common bile duct measuring up to 1.4 cm. No intrahepatic biliary ductal dilatation. 3. ??Other chronic changes as described above. ?? [2] ?? 20??minutes spent on discharge ? Clarisa Cervantes MD Internal Medicine PGY 1 Pager [phone] ?? Patient seen and discussed with??Percy MCRAE, Dennys [1]??Chest 2 Views Frontal and Lat; Rashel MCRAE, David Purdy 06/29/2022 23:46 EDT [2]??CT Abd/Pelvis W/ IV Contrast Only; Claudia Ervin MD 06/30/2022 03:32 EDT * Stephanie HAYDEN, Sheila: PERFORM Event Display: Patient Education/Instruction Authored Date: Inpatient Adult Discharge Instructions [address] [address] Name: FERMÍN AMATO : 1955 Visit: 06/29/2022 13:38:00 Current Date: 07/01/2022 11:21 Account: [id number] Inpatient Adult Discharge Instructions We would like [...] and their families. Surveys are administered by [employer]. ?? If further treatment with your primary care physician or another doctor is recommended, it is important for you to keep the appointment. Call your primary care physician or return to the Emergency Department immediately if your condition worsens, fails to improve, or new symptoms develop. If you need to find a doctor, you can call [facility] for a referral at [phone] or toll free at [phone] or log in to [email or web address].. ?? You can view and manage your care through the patient portal or by using a health care yoav of your choosing. [employer] is a website that allows you to securely view your medical information including your hospital discharge summary, office visit summaries, medications and follow-up visits. You can also request appointments, renew medications, and request access to your medical information using a health care yoav of your choosing, or just ask a question. You can enroll at [email or web address] or register during your next office visit. You have been discharged from [facility], Patient Care Unit: D3B. If you have any questions regarding these instructions after you leave, please call us and we will be happy to assist you. [facility] Your Care Team Attending Physician Dennys Greer MD Consulting Providers Jordan Kwok MD Discharging Providers Percy MCRAE, Dennys Reason for Your Visit [place] walking [place] started having abd pain, recent dx with ulcer. Your Diagnosis CAD (coronary artery disease) Upper GI bleed Vomiting Tests Performed Below is a partial list of the tests performed during your hospitalization. You may have had other tests and procedures not included in this list. Please discuss all test results with your provider. Basic Metabolic Panel CBC CBC w/ Differential Comprehensive Metabolic Panel COVID-19 (2019 Novel Coronavirus) PCR H + H HOLD BLUE TUBE?-- Results Pending -- HOLD GEL TUBE Lactic Acid Level Lipase Urinalysis w/hold for Urine Culture CT Abd/Pelvis W/ IV Contrast Only XR Chest 2 Views Frontal and Lat ? You will be contacted within 72 hours with your results. Primary Care Provider Naseem Alford MD Advance Directive . Discharge Vitals Temperature: 98.2 DegF Height: 178 cm Pulse Rate: 57 bpm Weight: 82 kg Respiratory Rate: 18 br/min Body Mass Index:??25.88 kg/m2??High Systolic Blood Pressure: 118 mm Hg Body surface area: 2.01 Diastolic Blood Pressure: 61 mm Hg ?? Oxygen Saturation: 98 % ?? Studies Pending All tests and labs ordered during this hospital stay have been completed unless listed below. Please discuss all pending results with your provider listed above in these instructions. ?? Hold Blue Top Tube (HOLD BLUE TUBE) What to do next Instructions From Your Doctor Discharge Orders Scheduled Follow-Up Appointments Wednesday. 2022 10:30 AM EDT ?? With: Gerard Lockwood MD Where: [facility] [address] [place] [address]- You Need to Schedule the Following Appointments Follow Up with??Please avoid OTc pain medications including motrin, alleve, ibuprofen etc When?? Why: you can take tylenol Follow Up with??Prescription has been sent to pharmacy in [facility] When?? Why: Protonix has been changed to omeprazole capsules. Follow Up with??Naseem Alford MD When??Within 1 to 2 weeks Why: also for anemia Where: [address] [place] [address]- Business (1) Discharge Medications FERMÍN AMATO :1955 Visit Date:06/29/2022 Medications: Please continue your medications until treatment is completed or stopped by your provider. Medications not listed below should be discontinued. Discuss any questions related to medications with your provider. What How Much When Instructions Next Dose New Omeprazole (omeprazole 40 mg oral enteric coated capsule) 1 capsule Oral Twice a day Refills: 1 to be opened into apple sauce to allow better gastric absorption ?? Pickup at [facility] 3 Bedtime Changed Sucralfate (Carafate 1 gm/ 10 ml oral suspension) 10 Milliliter Oral 3 times a day before meals and bedtime Pickup at [facility] 3 Prior to next meal Unchanged Allopurinol (allopurinol 100 mg oral tablet) 1 tab(s) Oral Daily before dinner Tonight before dinner Unchanged Aspirin (aspirin 81 mg oral delayed release tablet) 1 tab(s) Oral Daily Tomorrow Morning Unchanged Atorvastatin (atorvastatin 80 mg oral tablet) 1 tab(s) Oral Daily Tomorrow Morning Unchanged Fluticasone Nasal (Flonase 50 mcg/ inh nasal spray) 1 spray(s) Nares, Both Twice a day as needed for Nasal Congestion As needed Unchanged Isosorbide Mononitrate (isosorbide mononitrate 30 mg oral tablet, extended release) 1 tab(s) Oral Daily in the morning Tomorrow Morning Unchanged Losartan (losartan 25 mg oral tablet) 1 tab(s) Oral Daily Tomorrow Morning Unchanged Metoprolol (metoprolol 50 mg oral tablet, extended release) 1 tab(s) Oral Daily in the morning Tomorrow Morning Unchanged Metoprolol (Metoprolol Succinate ER 25 mg oral tablet, extended release) TAKE 1 TABLET BY MOUTH TWICE A DAY TAKE WITH 50MG TABLET FOR A TOTAL OF 75MG ?? Tomorrow morning Pharmacy Information [facility] 3: [address], [place] [id number] [phone] ?? What How Much When Comments Stop Taking Pantoprazole (Protonix 40 mg oral delayed release tablet) 40 Milligram Oral Daily Should take daily for rest of your life, refill per PCP or GI ?? Test Results Below is a partial list of the most recent Laboratory test results done prior to this discharge. You may have had other tests and procedures not included in this list. Please discuss all test resultswith your provider. Est Creatinine Clearance - 73.18 mL/min (06/29/2022) Basic Metabolic Panel (07/01/2022) ???Sodium - 139 mmol/L???Potassium - 4.2 mmol/L???Chloride - 105 mmol/L???Bicarbonate Level - 24 mmol/L???Anion Gap - 10???Glucose Level - 90 mg/dL???BUN - 13 mg/dL???Creatinine-Blood - 1.0 mg/dL???Estimated GFR Creatinine - 85 ML/MIN/1.73 M2???Calcium - 9.6 mg/dL CBC (07/01/2022) ???WBC - 3.5 k/mm3???RBC - 3.72 m/mm3???Hgb - 11.6 Gm/dL???Hct - 35.9 %???MCV - 96.5 femtoliters???MCH - 31.2 pg???MCHC - 32.3 g/dL???Platelet Count - 226 k/mm3???RDW-SD - 46.6 femtoliters???MPV - 9.8 femtoliters???Nucleated RBC (Automated) - 0.0 #/100 WBC'S???Abs. NRBC - 0.0 k/mm3 CBC w/ Differential (06/29/2022) ???WBC - 6.7 k/mm3???RBC - 3.57 m/mm3???Hgb - 11.7 Gm/dL???Hct - 35.5 %???MCV - 99.4 femtoliters???MCH - 32.8 pg???MCHC - 33.0 g/dL???Platelet Count - 259 k/mm3???RDW-SD - 48.3 femtoliters???MPV - 9.9 femtoliters???Nucleated RBC (Automated) - 0.0 #/100 WBC'S???Abs. NRBC - 0.0 k/mm3???Abs. Neut - 4.2 k/mm3???Abs. Lymph - 1.5 k/mm3???Abs. [place] - 0.7 k/mm3???Abs. Eo - 0.2 k/mm3???Abs. Baso - 0.0 k/mm3???Neut % - 62.0 %???Lymph % - 23.0 %???[place] % - 10.7 %???Eos % - 3.6 %???Baso % - 0.6 %???Imm Gran - 0.1 %???Abs. Imm Gran - 0.0 k/mm3 Comprehensive Metabolic Panel (06/29/2022) ???Sodium - 143 mmol/L???Potassium - 4.5 mmol/L???Chloride - 109 mmol/L???Bicarbonate Level - 25 mmol/L???Anion Gap - 9???Glucose Level - 83 mg/dL???BUN - 21 mg/dL???Creatinine-Blood - 1.0 mg/dL???Estimated GFR Creatinine - 80 ML/MIN/1.73 M2???Calcium - 9.6 mg/dL???Protein, Total - 6.3 Gm/dL???Album in - 4.4 Gm/dL???AG Ratio - 2.3???Alkaline Phosphatase - 114 units/L???AST (SGOT) - 26 units/L???ALT (SGPT) - 28 units/L???Bilirubin, Total - 0.6 mg/dL COVID-19 (2019 Novel Coronavirus) PCR (06/30/2022) ???COVID-19 PCR Specimen Source - NASAL???COVID-19 PCR Result - NEGATIVE H + H (06/30/2022) ???Hgb - 12.4 Gm/dL???Hct - 38.1 % HOLD GEL TUBE (06/30/2022) ???Hold Gel Top - SPECIMEN DISCARDED AFTER 1 WEEK Lactic Acid Level (06/29/2022) ???Lactate - 1.6 mmol/L Lipase (06/29/2022) ???Lipase - 47 units/L Urinalysis w/hold for Urine Culture (06/29/2022) ???Appear/Color, Urine - LIGHT YELLOW???Specific [place], Urine - 1.029???pH, Urine - 5.5???Albumin, Urine - TRACE???Glucose, Urine - NEGATIVE???Ketones, Urine - NEGATIVE???Bilirubin, Urine - NEGATIVE???Hemoglobin, Urine - NEGATIVE???Nitrite, Urine - NEGATIVE???Leukocyte, Urine - NEGATIVE???Urobilin ogen - NORMAL? ?WBC's, Urine - 1 /HPF? ?RBC's, Urine - 2 /HPF? ?Squamous Epith - <1 /HPF? ?Mucus- SLIGHT???Hold Urine Culture - Testing available 48 hours from time of collection. Allergies (NKA means No Known Allergies) MiraLax??(Itching of skin) Problems Active Problems??(9) Anemia?? CAD (coronary artery disease) with PCI in 12/2020?? Chest pain?? Elevated LFTs?? Episode of syncope?? Heart failure?? Inguinal hernia of left side without obstruction or gangrene?? LBBB (left bundle branch block)?? Status post cardiac catheterization?? Education Materials Below is the list of Educational Leaflet Providered with your Discharge Instructions. Upper Gastrointestinal (GI) Bleeding, Stable?? Valuables and Belongings I fully understand and agree that [facility] accepts no responsibility for all my personal [...] present Date for Pt to Sign Valuables/Belongings: 06/30/22 12:05:00 ?? Other Discharge Information ? Pulmonary Rehab Status?? Pulmonary Rehab Discharge Status?? Respiratory Rate: 18 br/min ? Common Emergency Awareness Tips IS [...] are strongly encouraged to quit. Please call [facility] at [phone] or [phone] ([phone]) or log in to [email or web address] for referrals to smoking cessation programs. ?? 421 Suicide & Crisis Lifeline is available 21/09 if you or someone you know needs to find a reason to keep living. By calling 681 you'll be connected to a skilled, trained counselor at a crisis center in your area. INPATIENT DISCHARGE INSTRUCTIONS SIGNATURE PAGE FERMÍN AAMTO Location:[facility] Registration Date and Time:06/29/2022 13:38 EDT Primary Care Physician: Prashnath MCRAE, Naseem, I LIMAPRIMITIVOIN, have received the above patient education materials/instructions and have verbalized understanding. If ambulance or transport services are being used I further acknowledge being given a choice of service. ?? If you need to contact me, please call me at this number: . Patient/Ecosystem Ecology Professor Name: Patient/Ecosystem Ecology Professor Signature: Relationship to Patient: Witness Name/Signature: Date: * Dennys Greer MD: SIGN, PERFORM, SIGN, VERIFY Event Display: Patient Education Handout Authored Date: [id number] * Dennys Greer MD: PERFORM Event Display: Patient Education Leaflets Authored Date: [id number] Upper Gastrointestinal (GI) Bleeding, Stable ?? [id number] Upper Gastrointestinal (GI) Bleeding, Stable Your upper gastrointestinal (GI) tract includes your esophagus, stomach, and upper small intestine.??You have signs of bleeding from your upper GI??tract. You may have vomited or coughed up blood or coffee-ground like material. Or you may have black or tarry stools.??Very small amounts of GI bleeding may not be visible and can only be found by a test of the stool. Causes of upper GI bleeding can include: ??? Tear in the lining of the esophagus ??? Enlarged veins in the esophagus or stomach, especially in someone with cirrhosis ??? An ulcer in the stomach or top of the small intestine ??? Severe irritation of the stomach ??? Inflammation of the digestive tract ??? Abnormal growth (tumor) of the upper digestive tract A bloody nose or mouth or dental problems may cause you to swallow blood. You may vomit this blood up. This is not true GI bleeding.??Iron supplements and medicines for diarrhea and upset stomach cancause black stools.??This is not GI bleeding and is not a cause for concern. Home care You've had an assessment for your bleeding. You will need to continue your care at home. Depending on the cause of your bleeding, care may include: ??? You may be given medicines to help protect yourGI tract, treat your problem, and help with healing. Take these as directed. Call your provider if you have questions about your medicines or side effects that concern you. ??? Sometimes tests such as endoscopy may also be used to stop bleeding. An endoscope is a thin flexible tube with a light junaid camera on the tip that is put into your stomach through your throat (esophagus). ??? Don't take NSAIDs, such as aspirin, ibuprofen, or naproxen. They can irritate the stomach and cause more bleeding. If you are taking these medicines for other reasons, talk with your provider before you stop them.? If you are on blood thinners, discuss the treatment plan with your provider. ??? Don't use alcohol, caffeine, or tobacco. These can delay healing and make your problem worse. If you have trouble stopping any of these things, ask your provider for treatment resources. ?? Follow-up care Follow up with your healthcare provider as advised. You may need more tests to find??the cause of your bleeding. ?? When to seek medical advice Call your healthcare provider right away??for any of the following: ??? Stomach pain starts or getsworse ??? Pain spreads to the neck, back, shoulder, or arm ??? Weakness or dizziness ??? Swelling of your belly ??? Red blood in your stool ??? Fever of 100.4??F (38??C) or higher, or as directed by your healthcare provider ??? New symptoms ?? Call 911 Call 911 if any of these occur: ??? Trouble breathing or swallowing ??? Severe dizziness ??? Loss of consciousness ??? Vomiting blood that is not related to a bloody nose or a dental procedure ??? Large amounts of blood in the stool ??? Black, tarry stool ??? Chest pain or lightheadedness ?? Last Reviewed Date: 2020 ?? [id number] The [employer]. All rights reserved. This information is not intended as a substitute for professional medical care. Always follow your healthcare professional's instructions. ?? * BHSPowerericka , CIS S: David Bennett MD: VERIFY Event Display: Result: Authored Date: [id number] Chest 2 Views Frontal and Lat Hx of Present Illness: Dx with ulcer last week, pt concerned of changes reported coughing up blood around noon. pt denies clots, denies N V D, fevers, constipation and urinary changes. Patient reports L sided abdominal pain that is constant L sided and increases with palpation.; Reason: Other:; Shortness of Breath, Fever; Clinical Question(s): Pneumonia COMPARISON: X-ray 06/21/2022 FINDINGS: LINES AND TUBES: None. LUNGS AND PLEURA: Clear lungs. Normal pulmonary vascularity. No pleural effusion. No pneumothorax. HEART, MEDIASTINUM AND TINY: Heart is normal in size. Normal mediastinal and hilar contour. BONES AND SOFT TISSUES: No acute abnormality. IMPRESSION: No acute abnormality. WSN: [id number] Ordering Physician: [place] Eisenberg Dictated By: David Kiser MD Dictated Date/Time: 06/29/22 11:59 p Reviewed By: David Kiser MD Signed By: David Kiser MD Signed Date/Time: 06/29/22 11:59 pm Transcribed By: LISA Transcribed Date/Time: 06/29/22 11:[address] Abdomen and Pelvis W contrast IV * BHSPowerscribe , CIS S: TRANSCRIBE Velia Recinos DO: SIGN Claudia Ervin MD: VERIFY Event Display: Result: Authored Date: [id number] CT Abd/Pelvis W/ IV Contrast Only Hx of Present Illness: Dx with ulcer last week, pt concerned of changes reported coughing up blood around noon. pt denies clots, denies N V D, fevers, constipation and urinary changes. Patient reports L sided abdominal pain that is constant L sided and increases with palpation.; Reason: LLQ abdominal pain; Clinical Question(s): Diverticulitis; Order Comment: TECHNIQUE: Spiral CT through the abdomen and pelvis with IV contrast formatted in 3 planes. 100 cc of Omnipaque 300 was administered intravenously. This study was performed without oral contrast. Weight-based protocol using automatic tube modulation was used to optimize exposure parameters. CTDIvol Body: 15.10 mGy, DLP Body: 826 mGy*cm. COMPARISON: Multiple priors most recently 06/19/2022. FINDINGS: Citrus Fruit Colorer View Findings, Lines and Tubes: None. Visualized Chest: Subpleural reticulations, unchanged from prior. No pleural effusion. The heart isnormal in size. No pericardial effusion. Diaphragm: Normal. Liver: Normal. Gallbladder: No CT evidence of gallbladder pathology. Bile ducts: Unchanged dilation of the common bile duct measuring 1.4 cm. Mild intrahepatic biliary dilation is also seen. Spleen: Normal. Pancreas: Normal. Adrenal glands: Normal. Kidneys and ureters: No hydronephrosis, stones, or suspicious masses. Bladder: Normal. Reproductive organs: Unremarkable. Stomach, small bowel, and large bowel: No evidence of obstruction or inflammation. Colonic diverticulosis without evidence of acute diverticulitis. Unchanged calcification seen at the sigmoid colon, likely representing a calcified diverticula. Status post partial gastrectomy. Appendix: Normal. Peritoneum and retroperitoneum: No ascites or pneumoperitoneum. No omental or mesenteric lesions. Lymph nodes: No enlarged lymph nodes. Blood vessels: Normal. No aneurysm. No evidence of venous thrombosis. Abdominal and pelvic wall: Bilateral fat-containing inguinal hernias. Bones: Grade 1 anterolisthesis of L4 on L5 and L5 on S1. Transitional lumbosacral anatomy. Moderatedegenerative changes at T12-L1. Moderate facet arthrosis in the lower lumbar spine. IMPRESSION: 1. No acute abnormality in the abdomen or pelvis. 2. Unchanged dilatation of the common bile duct measuring up to 1.4 cm. No intrahepatic biliary ductal dilatation. 3. Other chronic changes as described above. I have personally reviewed the images and I agree with this report. WSN: [id number] Ordering Physician: Kiley Vogel Dictated By: Velia Recinos DO Dictated Date/Time: 06/30/22 7:51 am Reviewed By: Claudia Ervin MD Signed By: Claudia Ervin MD Signed Date/Time: 06/30/22 7:56 am Transcribed By: LISA Transcribed Date/Time: 06/30/22 4:07 am Patient Care team information Care Team Personnel Name: Rosmery Bonds RN Position: S RN Member Role: Primary Care Nurse Name: Jolynn Bhatti RN Position: S RN Member Role: Primary Care Nurse Name: Petty Hines RN Position: [facility] RN Member Role: Primary Care Nurse Name: Naseem Alford MD Position: [facility] Outreach Member Role: PCP Address: Address: [address] [place] [address] Drive Naseem Sophy Alford MD [place], [place] - Name: Heather Garrett RN Position: [facility] RN Member Role: Primary Care Nurse Name: Tila Stock RN Position: [facility] RN Member Role: Primary Care Nurse Name: Roberta Noel RN Position: [facility] RN Member Role: Primary Care Nurse Name: Grace Almanzar RN Position: [facility] RN Member Role: Primary Care Nurse Name: Mercedez Zuniga RN Position: [facility] RN Member Role: Primary Care Nurse Name: Franco Sanchez RN Position: [facility] RN Member Role: Primary Care Nurse Name: David Meza RN Position: [facility] RN Member Role: Primary Care Nurse Name: Nathaly Zimmer RN Position: [facility] RN Member Role: Primary Care Nurse Name: Natalie Carmichael RN Position: [facility] RN Member Role: Primary Care Nurse Name: Romina Delarosa RN Position: [facility] RN Member Role: Primary Care Nurse Name: Georgette Mesa RN Position: [facility] RN Member Role: Primary Care Nurse Name: Beti Sparks RN Position: [facility] RN Member Role: Primary Care Nurse Name: Marge Bell RN Position: [facility] RN Member Role: Primary Care Nurse Name: Kiley Catherine LPN Position: [facility] RN Member Role: Primary Care Nurse Name: Bryan PRASAD Attending Position: [facility] ED Medicine Name: Jannet Hines Position: [facility] ED TA [facility] Member Role: Patient Care Provider Name: Georgette Simeon RN Position: [facility] ED RN W/OE and Tasks Member Role: Patient Care Provider Care Team Related Persons Name: RENNYVAISHALI EKLLOGG Address: [address] [place] [address] Name: RENNY AUGUSTINA Address: home [place] [id number] Name: JALEESA CHAN Address: home [address] [place] [address]
--- OUTSIDE RECORDS SUMMARY | 2022-08-13 11:25 | XMS_ITS | Continuity of Care Document ---
Author Name Unknown Organization [facility] ter Address [address] [place] [id number]- Care Team Providers Care Lead Consultant Name Role Phone Naseem Alford MD Primary Care Physician [phone] Encounter [facility] Date(s): 04/30/21 - 05/01/[address] [address]- Discharge Disposition: A-D/C Home Attending Physician: Dennys Greer MD Admitting Physician: Perico Rizvi MD Referring Physician: Not on Staff, Referring [...] 02/26/21 10:51:00 EST, Route to Pharmacy Electronically, [facility], Partial fill upon patient request if the prescr... Start Date: 02/26/21 Status: Ordered Imdur 30 mg oral tablet, [...] 02/26/21 16:36:00 EST, Route to Pharmacy Electronically, [facility], Partial fill upon patient request if the prescription is for a schedule II opioi... Start Date: 02/26/21 Status: Ordered metoprolol 25 mg oral tablet 75 mg, Tablet, By Mouth, 05/01/21 1:13:00 EST Start Date: 05/01/21 Stop Date: 05/01/21 Status: Completed metoprolol 50 mg oral tablet, extended release 75 mg, 1.5, tablet, By Mouth, 2 times a day, # 90 tablet, Refills 0, Tot. Refills 0, Maintenance, 01/25/21 10:53:00 EST, Route to Pharmacy Electronically, [facility], Partial fill upon patient request if [...] 0 Refills, Maintenance, 01/25/21 10:54:00 EST, Tablet, [facility], Partial fill upon patient [...] Exam Date Time Procedure Performing Provider Status 04/30/21 3:57 PM Chest 2 Views Frontal and Lat Bein , Da na; Auth (Verified) Notes: (Chest 2 Views Frontal and Lat) Reason For Exam: Chest Pain;Other: RESULT: Chest 2 Views Frontal and Lat Chest 2 Views Frontal and Lat Hx of Present Illness: Pt from home w chest pain radiating to his L arm which started this afternoon s p going for a walk. Reports some SOB. Denies n v. Pt received nitro by EMS w some improvement ofpain.; Reason: Other:; Chest Pain; Clinical Question(s): CHF COMPARISON: 03/31/2021 FINDINGS: No acute cardiopulmonary process Reticular markings in the lower lung zones consistent with mild fibrosis IMPRESSION: No acute abnormality. WSN: [id number] Ordering Physician: Kenyatta Chaudhry Dictated By: Christopher Coleman MD Dictated Date/Time: 04/30/21 3:59 pm Reviewed By: Christopher Coleman MD Signed By: Christopher Coleman MD Signed Date/Time: 04/30/21 3:59 pm Transcribed By: LISA Transcribed Date/Time: 04/30/21 3:58 pm Vital Signs Most recent to oldest [Reference Range]: 1 2 3 Weight 86 kg (04/30/21 11:03 PM) Oxygen Saturation [94-100 %] 100 % (05/01/21 8:42 AM) 99 % (05/01/21 4:34 AM) 100 % (04/30/21 10:57 PM) Pulse Rate [55-90 bpm] 54 bpm *L* (05/01/21 8:42 AM) 55 bpm (05/01/21 4:34 AM) 70 bpm (05/01/21 1:10 AM) Blood Pressure [90-138/55-84 mm Hg] 123/68mm Hg (05/01/21 8:42 AM) 108/54mm Hg (05/01/21 4:34 AM) 167/75mm Hg *H* (05/01/21 1:10 AM) Respiratory Rate [16-30 br/min] 18 br/min (05/01/21 9:00 AM) 20 br/min (05/01/21 8:42 AM) 16 br/min (05/01/21 4:34 AM) Temperature [96.8-100.4 DegF] 97.9 DegF (05/01/21 8:42 AM) 97.7 DegF (05/01/21 4:34 AM) 98.0 DegF (04/30/21 10:57 PM) Mode of Delivery (Oxygen) Room air (05/01/21 8:42 AM) Room air (05/01/21 4:34 AM) Room air (04/30/21 10:57 PM) Blood pressure sites Arm, left (05/01/21 8:42 AM) Arm, left (05/01/21 4:34 AM) Arm, left (04/30/21 10:57 PM) Temperature Route Oral (05/01/21 8:42 AM) Oral (05/01/21 4:34 AM) Oral (04/30/21 10:57 PM) Dry Weight 86 kg (04/30/21 11:03 PM) Weight Obtained Via Bed scale (04/30/21 11:03 PM) Dry Weight Obtained Via Bed scale (04/30/21 11:03 PM) Social History Social History Type Response Smoking Status Never (less than 100 in lifetime) entered on: 10/21/19 Sex
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
--- OUTSIDE RECORDS SUMMARY | 2022-08-13 11:25 | XMS_ITS | Continuity of Care Document ---
Author Name Unknown Organization [facility] Address Unknown Care Team Providers Care Gear Repair Supervisor Name Role Phone Naseme Alford MD Primary Care Physician [phone] [place] [facility] [place] 06/10/21 - 06/17/21 [facility] Encounter Diagnosis Bilateral inguinal hernia(Discharge Diagnosis) - 06/10/21 Status post cardiac catheterization(Discharge Diagnosis) - 06/10/21 CAD (coronary artery disease)(Discharge Diagnosis) - 06/10/21 Left bundle branch block(Discharge Diagnosis) - 06/10/21 Attending Physician: Charan Roberts MD Referring Physician: Naseem Alford MD Allergies, [...] mL, 0 Refills, Maintenance,05/07/21 10:56:00 EST, [id number], Partial fill upon patient request if the prescription isfor a schedule II opioid drug., 177.8, cm, 05/07/21... Start Date: 05/07/21 Status: Ordered Colace sodium 100 mg oral capsule 100 mg, 1, capsule, By Mouth, 2 times a day, PRN, # 100 capsule, Refills 0, Tot. Refills 0, Maintenance, for constipation, 05/27/21 14:45:00 EDT, Route to Pharmacy Electronically, [facility], Partial fill upon patient [...] 02/26/21 16:36:00 EST, Route to Pharmacy Electronically, [facility], Partial fill upon patient request if the prescription is for a schedule II opioi... Start Date: 02/26/21 Status: Ordered metoprolol 50 mg oral tablet, extended release 75 mg, 1.5, tablet, By Mouth, 2 times a day, # 90 tablet, Refills 0, Tot. Refills 0, Maintenance, 01/25/21 10:53:00 EST, Route to Pharmacy Electronically, [facility], Partial fill upon patient request if [...] 0 Refills, Maintenance, 01/25/21 10:54:00 EST, Tablet, [facility], Partial fill upon patient [...] cardiac catheterization(Confirmed) Active Episode of syncope(Confirmed) Active Diagnosis Diagnosis Type Effective Dates Health Status Clinical Service Informant Bilateral inguinal hernia Discharge Diagnosis 06/10/21 Status post cardiac catheterization Discharge Diagnosis 06/10/21 CAD (coronary artery disease) Discharge Diagnosis 06/10/21 Left bundle branch block Discharge Diagnosis 06/10/21 Vital Signs Most recent to oldest [Reference Range]: 1 Height 178 cm (06/10/21 2:20 PM) Weight 81.4 kg (06/10/21 2:20 PM) Pulse Rate [55-90 bpm] 65 bpm (06/10/21 2:20 PM) Body Mass Index [18.5-24.99] 25.69 *H* (06/10/21 2:20 PM) Blood Pressure [90-138/55-84 mm Hg] 139/ 83mm Hg *H* (06/10/21 2:20 PM) Respiratory Rate [16-30 br/min] 16 br/mi n (06/10/21 2:20 PM) Temperature [96.8-100.4 DegF] 96.8 DegF (06/10/21 2:20 PM) Blood pressure sites Arm, right (06/10/21 2:20 PM) Temperature Route Temporal (06/10/21 2:20 PM) Social History Social History Type Response Smoking Status Never (less than 100 in lifetime) entered on: 10/21/19 Sex
--- OUTSIDE RECORDS SUMMARY | 2022-08-13 11:25 | XMS_ITS | Continuity of Care Document ---
Author Name Unknown Organization [facility] ter Address [address] [place] [id number]- Care Team Providers Care Security Flex Officer Name Role Phone Naseem Alford MD Primary Care Physician Encounter [facility] [place] Date(s): 01/30/21 - 01/31/[address] [address]- Encounter Diagnosis Chest pain(Final) - 01/30/21 Discharge Disposition: A-D/C Home Attending Physician: Christian Mackey DO Admitting Physician: Perico Rizvi MD Referring Physician: [...] opioid drug. Start Date: 01/31/21 Status: Ordered isosorbide mononitrate 30 mg oral tablet, extended release 1 tablet = 30 mg, By Mouth, Daily, # 30 tablet, 0 Refills, Maintenance, 01/25/21 10:54:00 EST, ER Tablet, [facility], Partial fill upon patient request if the prescription is for a schedule II opioid drug., 177.8, cm, 01/25/21 8:37:00 ES... Start Date: 01/25/21 Status: Ordered lisinopril 5 mg oral tablet 5 mg, Tablet, By Mouth, 01/31/21 9:00:00 EST Start Date: 01/31/21 Stop Date: 01/31/21 Status: Completed lisinopril 5 mg oral tablet 5 mg, 1, tablet, By Mouth, Daily, # 30 tablet, Refills 0, Tot. Refills 0, Maintenance, 01/25/21 10:51:00 EST, Route to Pharmacy Electronically, [facility], Partial fill upon patient request if the prescription is for a schedule II opioid... Start Date: 01/25/21 Status: Ordered metoprolol 50 mg oral tablet, extended release 75 mg, 1.5, tablet, By Mouth, 2 times a day, # 90 tablet, Refills 0, Tot. Refills 0, Maintenance, 01/25/21 10:53:00 EST, Route to Pharmacy Electronically, [facility], Partial fill upon patient request if the prescription is for a schedul... Start Date: 01/25/21 Status: Ordered metoprolol extended release 75 mg, XL Tablet, By Mouth, Hold for: HR <60, sys BP <110, 01/31/21 9:00:00 EST Start Date: 01/31/21 Stop Date: 01/31/21 Status: Completed nitroglycerin 0.4 mg sublingual tablet [...] 0 Refills, Maintenance, 01/25/21 10:54:00 EST, Tablet, [facility], Partial fill upon patient request if the prescription is for aschedule II opioid drug., 177.8, cm, 01/25/21 8:37:... Start Date: 01/25/21 Status: Ordered Problem List Condition Effective Dates Status Health Status Inform ant Status post cardiac catheterization(Confirmed) Active Episode of syncope(Confirmed) Active Results Radiology Reports * Exam Date Time Procedure Performing Provider Status 01/30/21 7:12 PM Chest Portable Elsa Mix; Jerrica (Verified) Notes: (Chest Portable) Reason For Exam: Shortness of Breath RESULT: Chest Portable Chest Portable Hx of Present Illness: Pt from [facility], c o CP SOB started last night, stent placed last week, NSR LBBB, labored breathing 2L for comfort; Reason: Shortness of Breath; Clinical Question(s): Pneumonia COMPARISON: 01/30/2021 at 10:20 AM FINDINGS: LINES AND TUBES: None. LUNGS AND PLEURA: Clear lungs. Normal pulmonary vascularity. No pleural effusion. No pneumothorax. HEART, MEDIASTINUM AND TINY: Heart is normal in size. Normal upper mediastinal and hilar contour. BONES AND SOFT TISSUES: No acute abnormality. IMPRESSION: No focal pneumonia. WSN: [id number] Ordering Physician: Angel Murry Dictated By: Renae Hoffman MD Dictated Date/Time: 01/30/21 7:17 pm Reviewed By: Renae Hoffman MD Signed By: Renae Hoffman MD Signed Date/Time: 01/30/21 7:17 pm Transcribed By: LISA Transcribed Date/Time: 01/30/21 7:16 pm * Exam Date Time Procedure Performing Provider Status 01/30/21 10:34 AM Chest Portable Alex Segovia h (Verified) Notes: (Chest Portable) Reason For Exam: Chest Pain;Other: RESULT: Chest Portable Chest Portable INDICATION: Chest pain. COMPARISON: Prior chest radiograph most recently 01/21/2021. CTA 10/20/2019. FINDINGS: LINES AND TUBES: None. LUNGS AND PLEURA: Clear lungs. Normal pulmonary vascularity. No pleural effusion. No pneumothorax. HEART, MEDIASTINUM AND TINY: Heart is normal in size. Normal upper mediastinal and hilar contour. BONES AND SOFT TISSUES: No acute abnormality. Surgical material projects in left upper quadrant. IMPRESSION: No acute abnormality. I have personally reviewed the images and I agree with this report. WSN: [id number] Ordering Physician: Marbin Gifford Dictated By: Jennifer Franco MD Dictated Date/Time: 01/30/21 10:51 a Reviewed By: Cayden Cavazos MD Signed By: Cayden Cavazos MD Signed Date/Time: 01/30/21 10:56 am Transcribed By: LISA Transcribed Date/Time: 01/30/21 10:44 am Vital Signs Most recent to oldest [Reference Range]: 1 2 3 Height 177 cm (01/31/21 4:10 AM) 177 cm (01/30/21 9:58 PM) Weight 87 kg (01/30/21 9:58 PM) 87 kg (01/30/21 9:40 PM) Oxygen Saturation [94-100 %] 100 % (01/31/21 11:15 AM) 99 % (01/31/21 7:17 AM) 100 % (01/31/21 4:10 AM) Pulse Rate [55-90 bpm] 64 bpm (01/31/21 11:15 AM) 63 bpm (01/31/21 8:59 AM) 63 bpm (01/31/21 7:17 AM) Body Mass Index [18.5-24.99] 27.77 *H* (01/30/21 9:58 PM) Blood Pressure [90-138/55-84 mm Hg] 125/61mm Hg (01/31/21 11:15 AM) 151/69mm Hg *H* (01/31/21 8:59 AM) 151/69mm Hg *H* (01/31/21 8:58 AM) Respiratory Rate [16-30 br/min] 18 br/min (01/31/21 1:41 PM) 18 br/min (01/31/21 11:15 AM) 18 br/min (01/31/21 7:17 AM) Temperature [96.8-100.4 DegF] 98.1 DegF (01/31/21 11:15 AM) 98.1 DegF (01/31/21 7:17 AM) 98.5 DegF (01/31/21 4:10 AM) Mode of Delivery (Oxygen) Room air (01/31/21 11:15 AM) Room air (01/31/21 7:17 AM) Room air (01/31/21 4:10 AM) Blood pressure sites Arm, left (01/31/21 11:15 AM) Arm, left (01/31/21 7:17 AM) Arm, right (01/31/21 4:10 AM) Temperature Route Oral (01/31/21 11:15 AM) Oral (01/31/21 7:17 AM) Oral (01/31/21 4:10 AM) Dry Weight 86.3 kg (01/30/21 9:58 PM) Weight Obtained Via Bed scale (01/30/21 9:40 PM) Social History Social History Type Response Smoking Status Never (less than 100 in lifetime) entered on: 10/21/19 Sex
--- OUTSIDE RECORDS SUMMARY | 2022-08-13 11:25 | XMS_ITS | Continuity of Care Document ---
Author Name Unknown Organization [facility] ter Address [address] [place] [address]- Care Team Providers Care Emergency Room Specialist Name Role Phone Naseem Alford MD Primary Care Physician [phone] [place] [facility] [place] 11/20/[address] [address]- Encounter Diagnosis Precordial chest pain(Final) - 11/19/21 Discharge Disposition: A-D/C Home Attending Physician: Dennys Greer MD Admitting Physician: Dennis Grider MD Referring Physician: Not on Staff, Referring [...] EDT, Tablet Start Date: 11/05/13 Status: Ordered atorvastatin 80 mg oral tablet 1 tablet = 80 mg, By Mouth, Daily, # 30 tablet, 5 Refills, Maintenance, 01/31/21 13:13:00 EST, Tablet, Partial fill upon patient request if the prescription is for a schedule II opioid drug. Start Date: 01/31/21 Status: Ordered Flonase 50 mcg/inh nasal spray 1 sprays, Nares, Both, Daily in AM, PRN Congestion, 0 Refills, Maintenance, 09/05/21 21:24:00 EDT, [place], Partial fill upon patient request if the [...] 02/26/21 16:36:00 EST, Route to Pharmacy Electronically, [facility], Partial fill upon patient request if the prescription is for a schedule II opioi... Start Date: 02/26/21 Status: Ordered metoprolol 50 mg oral tablet, extended release 50 mg, 1, tablet, By Mouth, Daily in AM, # 30 tablet, Refills 2, Tot. Refills 2, Maintenance, 09/19/21 13:34:00 EDT, [id number] Partial fill upon patient request if the prescription is for a schedule II opioi... Start Date: 09/19/21 Status: Ordered nitroglycerin 0.4 mg sublingual tablet 1 tablet = 0.4 mg, Sublingual, Every 5 minutes, PRN as needed for chest pain, not to exceed 3 doses/15 min--if pain persists, seek medical attention, Maintenance, 10/29/20 10:56:00 EDT, Tablet, ; Start Date: 10/29/20 Status: Ordered Nitroglycerin 0.4mg Sublingual Tablet 0.4 mg, Tablet, Sublingual, Every 5 minutes for 3 doses/times, PRN for Chest Pain, Keep SBP greaterthan 100 mm Hg, If patient has ST elevation, administer only one tablet., Routine, 11/19/21 9:50:00EDT, Stop date Limited # of times Start Date: 11/19/21 Stop Date: 11/19/21 Status: Completed ticagrelor 90 mg oral tablet 1 tablet [...] Exam Date Time Procedure Performing Provider Status 11/19/21 10:09 AM Chest Portable Magnolia Maynard; Auth (Verified) Notes: (Chest Portable) Reason For Exam: Chest Pain;Other: RESULT: Chest Portable Chest Portable Hx of Present Illness: pt here with chest pain upon arrival to ER pt had to have sternal rub to arouse him c o chest pain feels like his last time he had a heart attack; Reason: Other:; Chest Pain; Clinical Question(s): CHF COMPARISON: 09/17/2021 FINDINGS: LINES AND TUBES: None. LUNGS AND PLEURA: Clear lungs. Normal pulmonary vascularity. No pleural effusion. No pneumothorax. HEART, MEDIASTINUM AND TINY: Heart is normal in size. Normal mediastinal and hilar contour. BONES AND SOFT TISSUES: No acute abnormality. Numerous surgical clips are demonstrated within the partially imaged upper abdomen. IMPRESSION: No acute abnormality. WSN: [id number] Ordering Physician: Lidia Osorio Dictated By: Kelli Izaguirre MD Dictated Date/Time: 11/19/21 10:34 a Reviewed By: Kelli Izaguirre MD Signed By: Kelli Izaguirre MD Signed Date/Time: 11/19/21 10:34 am Transcribed By: LISA Transcribed Date/Time: 11/19/21 10:30 am Vital Signs Most recent to oldest [Reference Range]: 1 2 3 Height 178 cm (11/20/21 8:18 AM) 178 cm (11/20/21 3:52 AM) 178 cm (11/19/21 11:09 PM) Weight 77.5 kg (11/19/21 3:05 PM) Oxygen Saturation [94-100 %] 99 % (11/20/21 8:16 AM) 100 % (11/20/21 3:52 AM) 100 % (11/19/21 11:09 PM) Pulse Rate [55-90 bpm] 63 bpm (11/20/21 8:16 AM) 67 bpm (11/20/21 3:52 AM) 58 bpm (11/19/21 11:09 PM) Body Mass Index [18.5-24.99 kg/m2] 24.46 kg/m2 (11/19/21 3:05 PM) Blood Pressure [90-138/55-84 mm Hg] 152/78mm Hg *H* (11/20/21 8:16 AM) 140/67mm Hg *H* (11/20/21 3:52 AM) 152/68mm Hg *H* (11/19/21 11:30 PM) Respiratory Rate [16-30 br/min] 16 br/min (11/20/21 10:02 AM) 18 br/min (11/20/21 8:16 AM) 18 br/min (11/20/21 3:52 AM) Temperature [96.8-100.4 DegF] 97.9 DegF (11/20/21 8:16 AM) 98 DegF (11/20/21 3:52 AM) 98 DegF (11/19/21 11:09 PM) Mode of Delivery (Oxygen) Room air (11/20/21 8:16 AM) Room air (11/20/21 3:52 AM) Room air (11/19/21 11:09 PM) Blood pressure sites Arm, left (11/20/21 8:16 AM) Arm, left (11/20/21 3:52 AM) Arm, left (11/19/21 11:09 PM) Temperature Route Oral (11/20/21 8:16 AM) Oral (11/20/21 3:52 AM) Oral (11/19/21 11:09 PM) Dry Weight 77.5 kg (11/19/21 3:05 PM) Weight Obtained Via Patient/family state d (11/19/21 3:05 PM) Social History Social History Type Response Smoking Status Never (less than 100 in lifetime) entered on: 10/21/19 Sex Implantable Device List Procedure Provider Procedure Date Device Type Site Repair Hernia Inguinal Laparoscopic Charan Mckeon MD 06/24/21 Unknown Groin Right Device Identifier Serial Number Lot or Batch Number Manufacturing Date Expiration Date Distinct Identification Code MRI Safety Implantable Status Assigning Authority [id number] Unknown [id number] Unknown 12/26/25 Unknown Unknown Active GS1 Procedure Provider Procedure Date Device Type Site Repair Hernia Inguinal Laparoscopic Charan Mckeon MD 06/24/21 Unknown Groin Left Device Identifier Serial Number Lot or Batch Number Manufacturing Date Expiration Date Distinct Identification Code MRI Safety Implantable Status Assigning Authority [id number] Unknown Unknown Unknown 04/28/25 Unknown Unknown Active GS1 Note * Dmitriy MCRAE , Arel: VERIFY Dmitriy MCRAE , Arel: VERIFY Event Display: Result: Authored Date: Chest Portable Hx of Present Illness: pt here with chest pain upon arrival to ER pt had to have sternal rub to arouse him c o chest pain feels like his last time he had a heart attack; Reason: Other:; Chest Pain; Clinical Question(s): CHF COMPARISON: 09/17/2021 FINDINGS: LINES AND TUBES: None. LUNGS AND PLEURA: Clear lungs. Normal pulmonary vascularity. No pleural effusion. No pneumothorax. HEART, MEDIASTINUM AND TINY: Heart is normal in size. Normal mediastinal and hilar contour. BONES AND SOFT TISSUES: No acute abnormality. Numerous surgical clips are demonstrated within the partially imaged upper abdomen. IMPRESSION: No acute abnormality. WSN: [id number] Ordering Physician: Lidia Osorio Dictated By: Kelli Izaguirre MD Dictated Date/Time: 11/19/21 10:34 a Reviewed By: Dmitriy MCRAE Arelinsey Signed By: Dmitriy MCRAE Arelinsey Signed Date/Time: 11/19/21 10:34 am Transcribed By: LISA Transcribed Date/Time: 11/19/21 10:30 am Care Team Personnel Name: Naseem Alford MD Address: [address] [place] [address] Prashanth MCRAE [place], [address]
--- OUTSIDE RECORDS SUMMARY | 2022-08-13 11:25 | XMS_ITS | Continuity of Care Document ---
Author Name Unknown Organization [facility] ter Address [address] [place] [address]- Care Team Providers Care Operations Management Professionals Name Role Phone Naseem Alford MD Primary Care Physician [place] [facility] [place] - 04/06/[address] [address]- Discharge Disposition: A-D/C Home Attending Physician: Patrick Rosario MD Admitting Physician: Paula Reid MD Referring Physician: Not on Staff, Referring [...] 02/26/21 10:51:00 EST, Route to Pharmacy Electronically, [facility], Partial fill upon patient [...] 02/26/21 16:36:00 EST, Route to Pharmacy Electronically, [facility], Partial fill upon patient request if the prescription is for a schedule II opioi... Start Date: 02/26/21 Status: Ordered losartan 25 mg oral tablet 25 mg, Tablet, By Mouth, 04/06/21 9:00:00 EST Start Date: 04/06/21 Stop Date: 04/06/21 Status: Completed metoprolol 25 mg oral tablet, extended release 75 mg, XL Tablet, By Mouth, 04/06/21 9:00:00 EST Start Date: 04/06/21 Stop Date: 04/06/21 Status: Completed metoprolol 50 mg oral tablet, extended release 75 mg, 1.5, tablet, By Mouth, 2 times a day, # 90 tablet, Refills 0, Tot. Refills 0, Maintenance, 01/25/21 10:53:00 EST, Route to Pharmacy Electronically, [facility], Partial fill upon patient request if [...] 0 Refills, Maintenance, 01/25/21 10:54:00 EST, Tablet, [facility], Partial fill upon patient [...] for Microbiology Reports Name Date Blood Culture 04/04/21 Blood Culture #2 04/04/21 Microbiology Reports TEST:Blood Culture STATUS:Unauthenticated BODY SITE: SOURCE:Blood COLLECTED DATE/TIME:04/04/21 6:26 PM Blood Culture SPECIMEN DESCRIPTION : BLOOD L HAND SPECIAL REQUESTS : NONE CULTURE : NO GROWTH AFTER 48 HOURS REPORT STATUS : PRELIMINARY REPORT TEST:Blood Culture, Second Order STATUS:Unauthenticated BODY SITE: SOURCE:Blood COLLECTED DATE/TIME:04/04/21 6:26 PM Blood Culture, Second Order SPECIMEN DESCRIPTION : BLOOD RAC SPECIAL REQUESTS : NONE CULTURE : NO GROWTH AFTER 48 HOURS REPORT STATUS : PRELIMINARY REPORT Vital Signs Most recent to oldest [Reference Range]: 1 2 3 Height 178 cm (04/06/21 7:21 AM) 178 cm (04/06/21 3:06 AM) 178 cm (04/05/21 11:59 PM) Weight 85.7 kg (04/04/21 10:14 PM) 84 kg (04/04/21 9:18 AM) 84 kg (04/04/21 9:11 AM) Oxygen Saturation [94-100 %] 100 % (04/06/21 7:21 AM) 99 % (04/06/21 3:06 AM) 99 % (04/05/21 11:59 PM) Pulse Rate [55-90 bpm] 79 bpm (04/06/21 8:36 AM) 79 bpm (04/06/21 7:21 AM) 77 bpm (04/06/21 3:06 AM) Body Mass Index [18.5-24.99] 27.05 *H* (04/04/21 10:14 PM) 26.51 *H* (04/04/21 9:11 AM) Blood Pressure [90-138/55-84 mm Hg] 134/68mm Hg (04/06/21 8:38 AM) 134/68mm Hg (04/06/21 8:36 AM) 134/68mm Hg (04/06/21 7:21 AM) Respiratory Rate [16-30 br/min] 18 br/min (04/06/21 8:57 AM) 18 br/min (04/06/21 7:21 AM) 21 br/min (04/06/21 3:06 AM) Temperature [96.8-100.4 DegF] 98.3 DegF (04/06/21 7:21 AM) 99.5 DegF (04/06/21 3:06 AM) 100 DegF (04/05/21 11:59 PM) Mode of Delivery (Oxygen) Room air (04/06/21 7:21 AM) Room air (04/06/21 3:06 AM) Room air (04/05/21 11:59 PM) Blood pressure sites Arm, left (04/06/21 7:21 AM) Arm, left (04/06/21 3:06 AM) Arm, left (04/05/21 11:59 PM) Temperature Route Oral (04/06/21 7:21 AM) Oral (04/06/21 3:06 AM) Oral (04/05/21 11:59 PM) Dry Weight 85.7 kg (04/04/21 10:14 PM) Weight Obtained Via Standing scale (04/04/21 10:14 PM) Patient/family stated (04/04/21 9:11 AM) Dry Weight Obtained Via Standing scale (04/04/21 10:14 PM) Social History Social History Type Response Smoking Status Never (less than 100 in lifetime) entered on: 10/21/19 Sex
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
--- OUTSIDE RECORDS SUMMARY | 2022-08-13 11:25 | XMS_ITS | Continuity of Care Document ---
Author Name Unknown Organization [facility] Address Unknown Care Team Providers Care Chemistry Quality Control Technician Name Role Phone Naseem Alford MD Primary Care Physician [phone] [facility] [place] Date(s): 07/01/21 - 07/31/21 [facility] Attending Physician: Analy Conway Admitting Physician: AdmtrAnaly Referring Physician: Analy Conway Allergies, Adverse Reactions, Alerts Substance Reaction Severity [...] mL, 0 Refills, Maintenance,05/07/21 10:56:00 EST, [id number], Partial fill upon patient request if the prescription isfor a schedule II opioid drug., 177.8, cm, 05/07/21... Start Date: 05/07/21 Status: Ordered Colace sodium 100 mg oral capsule 100 mg, 1, capsule, By Mouth, 2 times a day, PRN, # 100 capsule, Refills 0, Tot. Refills 0, Maintenance, for constipation, 05/27/21 14:45:00 EDT, [facility], Partial fill upon patient request if [...] 02/26/21 16:36:00 EST, Route to Pharmacy Electronically, [facility], Partial fill upon patient request if the prescription is for a schedule II opioi... Start Date: 02/26/21 Status: Ordered metoprolol 50 mg oral tablet, extended release 75 mg, 1.5, tablet, By Mouth, 2 times a day, # 90 tablet, Refills 0, Tot. Refills 0, Maintenance, 01/25/21 10:53:00 EST, Route to Pharmacy Electronically, [facility] 3, Partial fill upon patient request [...] 0 Refills, Maintenance, 01/25/21 10:54:00 EST, Tablet, [facility], Partial fill upon patient [...] Implanted Date:06/24/21Target Site:Groin Left Description Quantity MRI Embarkly Model MESH 3D MAX MID X-LG LT 5X7I N - BARD ([id number]) 1 Bard Unknown ADALI:{01}[id number] Assigning Author ity:FDA Implanted Date:06/24/21Target Site:Groin Right Description Quantity MRI Embarkly Model MESH 3D MAX MID LG RT 4X6IN - BARD ([id number]) 1 Bard Unknown ADALI:{01}[id number]{10}HUFY AB06 Assigning Authority:FDA
--- OUTSIDE RECORDS SUMMARY | 2022-08-13 11:25 | XMS_ITS | Continuity of Care Document ---
Author Name Unknown Organization [facility] ter Address [address] [place] [id number]- Care Team Providers Care Plastic Fabricator Name Role Phone Naseem Alford MD Primary Care Physician [phone] Encounter [facility] [place] Date(s): 05/06/21 - 05/07/[address] [address]- Encounter Diagnosis chest pain(Final) - 05/06/21 Discharge Disposition: A-D/C Home Attending Physician: Dennys Greer MD Admitting Physician: King Cottrell MD Referring [...] mL, 0 Refills, Maintenance,05/07/21 10:56:00 EST, [id number], Partial fill upon patient request if the [...] 02/26/21 16:36:00 EST, Route to Pharmacy Electronically, [facility], Partial fill upon patient request if the prescription is for a schedule II opioi... Start Date: 02/26/21 Status: Ordered losartan 25 mg oral tablet 25 mg, Tablet, By Mouth, 05/07/21 9:00:00 EST Start Date: 05/07/21 Stop Date: 05/07/21 Status: Completed metoprolol 25 mg oral tablet, extended release 75 mg, XL Tablet, By Mouth, Hold for: HR <60, sys BP <110, 05/07/21 9:00:00 EST Start Date: 05/07/21 Stop Date: 05/07/21 Status: Completed metoprolol 50 mg oral tablet, extended release 75 mg, 1.5, tablet, By Mouth, 2 times a day, # 90 tablet, Refills 0, Tot. Refills 0, Maintenance, 01/25/21 10:53:00 EST, Route to Pharmacy Electronically, [facility], Partial fill upon patient [...] 0 Refills, Maintenance, 01/25/21 10:54:00 EST, Tablet, [facility], Partial fill upon patient [...] Exam Date Time Procedure Performing Provider Status 05/06/21 12:09 PM Chest Portable Magnolia Maynard; Auth (Verified) Notes: (Chest Portable) Reason For Exam: Pleuritic Pain RESULT: Chest Portable Examination: Portable chest performed on 05/06/2021. History: Chest pain. Findings: A frontal view of the chest is compared to a prior study dated 05/02/2021. The cardiac and mediastinal silhouettes are within normal limits. The lungs are clear. The osseous structures are unremarkable. Surgical clips are seen in the left upper quadrant. IMPRESSION: There is no acute cardiopulmonary disease. WSN: [id number] Ordering Physician: Christopher Sharma Dictated By: Violetta Hutchins MD Dictated Date/Time: 05/06/21 12:25 p Reviewed By: Violetta Hutchins MD Signed By: Violetta Hutchins MD Signed Date/Time: 05/06/21 12:25 pm Transcribed By: LISA Transcribed Date/Time: 05/06/21 12:24 pm Vital Signs Most recent to oldest [Reference Range]: 1 2 3 4 Height 177.80 cm (05/07/21 12:06 PM) 177.80 cm (05/07/21 10:54 AM) 177.80 cm (05/07/21 7:31 AM) Weight 82.5 kg (05/06/21 9:18 PM) 82.5 kg (05/06/21 9:01 PM) 81.81 kg (05/06/21 8:35 PM) Oxygen Saturation [94-100 %] 100 % (05/07/21 10:54 AM) 99 % (05/07/21 7:31 AM) 100 % (05/07/21 4:33 AM) Pulse Rate [55-90 bpm] 64 bpm (05/07/21 10:54 AM) 60 bpm (05/07/21 9:21 AM) 60 bpm (05/07/21 7:31 AM) Body Mass Index [18.5-24.99] 26.1 *H* (05/06/21 9:01 PM) 25.88 *H* (05/06/21 8:35 PM) Blood Pressure [90-138/55-84 mm Hg] 120/59mm Hg (05/07/21 12:06 PM) 161/62mm Hg *H* (05/07/21 10:54 AM) 125/73mm Hg (05/07/21 9:21 AM) 125/73mm Hg (05/07/21 9:21 AM) Respiratory Rate [16-30 br/min] 20 br/min (05/07/21 10:54 AM) 18 br/min (05/07/21 9:00 AM) 20 br/min (05/07/21 7:31 AM) Temperature [96.8-100.4 DegF] 97.7 DegF (05/07/21 10:54 AM) 97.9 DegF (05/07/21 7:31 AM) 97.9 DegF (05/07/21 4:33 AM) Liters per Minute 2 L/min (05/06/21 7:00 PM) 2 L/min (05/06/21 5:06 PM) 2 L/min (05/06/21 3:00 PM) Mode of Delivery (Oxygen) Room air (05/07/21 10:54 AM) Room air (05/07/21 7:31 AM) Room air (05/07/21 4:33 AM) Blood pressure sites Arm, left (05/07/21 12:06 PM) Arm, left (05/07/21 10:54 AM) Arm, left (05/07/21 7:31 AM) Temperature Route Oral (05/07/21 10:54 AM) Oral (05/07/21 7:31 AM) Oral (05/07/21 4:33 AM) Dry Weight 82.5 kg (05/06/21 9:01 PM) Weight Obtained Via Bed scale (05/06/21 9:18 PM) Social History Social History Type Response Smoking Status Never (less than 100 in lifetime) entered on: 10/21/19 Sex
--- OUTSIDE RECORDS SUMMARY | 2022-08-13 11:25 | XMS_ITS | Continuity of Care Document ---
Author Name Unknown Organization [facility] ter Address [address] [place] [address]- Care Team Providers Care Overhead Line Worker Name Role Phone Naseem Alford MD Primary Care Physician [phone] Encounter [facility] [place] Date(s): 06/03/21 - 06/04/[address] [address]- Discharge Disposition: A-D/C Home Attending Physician: Joann [...] mL, 0 Refills, Maintenance,05/07/21 10:56:00 EST, [id number], Partial fill upon patient request if the prescription isfor a schedule II opioid drug., 177.8, cm, 05/07/21... Start Date: 05/07/21 Status: Ordered Colace sodium 100 mg oral capsule 100 mg, 1, capsule, By Mouth, 2 times a day, PRN, # 100 capsule, Refills 0, Tot. Refills 0, Maintenance, for constipation, 05/27/21 14:45:00 EDT, Route to Pharmacy Electronically, [facility], Partial fill upon patient [...] 02/26/21 16:36:00 EST, Route to Pharmacy Electronically, [facility] 3, Partial fill upon patient request if the prescription is for a schedule II opioi... Start Date: 02/26/21 Status: Ordered metoprolol 50 mg oral tablet, extended release 75 mg, 1.5, tablet, By Mouth, 2 times a day, # 90 tablet, Refills 0, Tot. Refills 0, Maintenance, 01/25/21 10:53:00 EST, Route to Pharmacy Electronically, [facility] 3, Partial fill upon patient request [...] 0 Refills, Maintenance, 01/25/21 10:54:00 EST, Tablet, [facility], Partial fill upon patient [...] Exam Date Time Procedure Performing Provider Status 06/03/21 11:05 PM Chest 2 Views Frontal and Lat Robert Saez; Auth (Verified) Notes: (Chest 2 Views Frontal and Lat) Reason For Exam: Chest Pain;Other: RESULT: Chest 2 Views Frontal and Lat Chest 2 Views Frontal and Lat Hx of Present Illness: LLQ abd pain and chest pain with SOB; Reason: Other:; Chest Pain; Clinical Question(s): Other: COMPARISON: 06/02/2021 FINDINGS: LINES AND TUBES: None. LUNGS AND PLEURA: Clear lungs. Normal pulmonary vascularity. No pleural effusion. No pneumothorax. HEART, MEDIASTINUM AND TINY: Heart is normal in size. Normal upper mediastinal and hilar contour. BONES AND SOFT TISSUES: No acute abnormality. Upper abdominal surgical clips. IMPRESSION: No acute abnormality. WSN: [id number] Ordering Physician: Jaida Ayon Dictated By: Olivier Hager MD Dictated Date/Time: 06/03/21 11:15 p Reviewed By: Olivier Hager MD Signed By: Olivier Hager MD Signed Date/Time: 06/03/21 11:15 pm Transcribed By: LISA Transcribed Date/Time: 06/03/21 11:13 pm Vital Signs Most recent to oldest [Reference Range]: 1 2 3 Oxygen Saturation [94-100 %] 98 % (06/04/21 5:15 AM) 100 % (06/04/21 3:46 AM) 99 % (06/04/21 2:55 AM) Pulse Rate [55-90 bpm] 68 bpm (06/04/21 6:28 AM) 60 bpm (06/04/21 5:15 AM) 70 bpm (06/04/21 3:46 AM) Blood Pressure [90-138/55-84 mm Hg] 133/62mm Hg (06/04/21 6:28 AM) 121/71mm Hg (06/04/21 5:15 AM) 142/71mm Hg *H* (06/04/21 2:55 AM) Respiratory Rate [16-30 br/min] 17 br/min (06/04/21 6:28 AM) 16 br/min (06/04/21 5:15 AM) 20 br/min (06/04/21 3:46 AM) Temperature [96.8-100.4 DegF] 97.8 DegF (06/04/21 12:00 AM) 98.8 DegF (06/03/21 9:58 PM) Mode of Delivery (Oxygen) Room air (06/04/21 5:15 AM) Room air (06/04/21 3:46 AM) Room air (06/04/21 2:55 AM) Blood pressure sites Arm, left (06/04/21 6:28 AM) Arm, left (06/04/21 5:15 AM) Arm, left (06/04/21 2:55 AM) Temperature Route Oral (06/04/21 12:00 AM) Oral (06/03/21 9:58 PM) Social History Social History Type Response Smoking Status Never (less than 100 in lifetime) entered on: 05/31/21 Sex
--- OUTSIDE RECORDS SUMMARY | 2022-08-13 11:25 | XMS_ITS | Continuity of Care Document ---
Author Name Unknown Organization [facility] ter Address [address] [place] [id number]- Care Team Providers Care Appliquer Name Role Phone Naseem Alford MD Primary Care Physician [place] [facility] [place] Date(s): 06/11/21 - 07/12/[address] [address] Attending Physician: Charan Roberts MD Admitting Physician: Charan Roberts MD Allergies, Adverse Reactions, Alerts Substance Reaction [...] mL, 0 Refills, Maintenance,05/07/21 10:56:00 EST, [id number], Partial fill upon patient request if the prescription isfor a schedule II opioid drug., 177.8, cm, 05/07/21... Start Date: 05/07/21 Status: Ordered Colace sodium 100 mg oral capsule 100 mg, 1, capsule, By Mouth, 2 times a day, PRN, # 100 capsule, Refills 0, Tot. Refills 0, Maintenance, for constipation, 05/27/21 14:45:00 EDT, Route to Pharmacy Electronically, [facility], Partial fill upon patient [...] Electronically, [facility], Partial fill upon patient request if the prescription is for a schedule II opioi... Start Date: 02/26/21 Status: Ordered metoprolol 50 mg oral tablet, extended release 75 mg, 1.5, tablet, By Mouth, 2 times a day, # 90 tablet, Refills 0, Tot. Refills 0, Maintenance, 01/25/21 10:53:00 EST, Route to Pharmacy Electronically, [facility], Partial fill upon patient [...] Implanted Date:06/24/21Target Site:Groin Left Description Quantity MRI [employer] Model MESH 3D MAX MID X-LG LT 5X7I N - BARD ([id number]) 1 Bard Unknown ADALI:{01}[id number] Assigning Author ity:FDA Implanted Date:06/24/21Target Site:Groin Right Description Quantity MRI [employer] Model MESH 3D MAX MID LG RT 4X6IN - BARD ([id number]) 1 Bard Unknown ADALI:{01}[id number]{17}[id number]{10}HUFY AB06 Assigning Authority:FDA
--- OUTSIDE RECORDS SUMMARY | 2022-08-13 11:25 | XMS_ITS | Continuity of Care Document ---
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 heart failure) (I50.22) Echo 09/18/21: EF 40%-45%. Appears to be??euvolemic on exam today ?? Plan: ??? Continue??atorvastatin, metoprolol, losartan. ? Incidentally found right lower lobe pulmonary polypoid lesion: Follow-up outpatient ?? Quality Measures Diet: Cardiac VTE Prophylaxis: Lovenox Code Status: Full Code ?? Herbert Haley MD MedPeds PGY-1 [facility]??& [place] [phone] * [place] [facility] [place]: PERFORM Event Display: Progress Note Hospital Authored Date: Attending Attestation:??I saw and examined the patient with the resident team and reviewed the chart on the day of service. ??I have discussed the case and its management??with the resident as documented in the resident note on the day of service.??I agree with the resident's note and plan as documented. Deprecated Cardiac rehabilitation treatment plan Progress note and attainment of goals (narrative) * Ramila Hawk RN: SIGN, VERIFY, PERFORM Event Display: Cardiac Rehab Note Authored Date: Patient: DURGA AMATO Age: 66 years Sex: Male : 1955 Associated Diagnoses: None Author: Ramila Hawk RN Chart reviewed, patient was admitted with carbon monoxide poisoning with chest pain and a history of a PCI. Negative RI, and cath was clean with patent LAD stent. Chest pain was related to carbon monoxide. Will sign off on this patient. Please page [phone] with questions or changes in patients plan of care. Patient Care team information Care Team Personnel Name: Rosmery Bonds RN Position: S RN Member Role: Primary Care Nurse Name: Corina Aguirre RN Position: S RN Member Role: Primary Care Nurse Name: Jolynn Bhatti RN Position: S RN Member Role: Primary Care Nurse Name: Petty Hines RN Position: S RN Member Role: Primary Care Nurse Name: Naseem Alford MD Position: S Outreach Member Role: PCP Address: Address: [address] [place] [address] Naseem Beckett Prashanth [facility] [place], [place] - Name: Heather Garrett RN Position: [facility] RN Member Role: Primary Care Nurse Name: [...] Care Nurse Name: Georgette Mesa RN Position: [facility] RN Member Role: Primary Care Nurse Name: Marge Bell RN Position: [facility] RN Member Role: Primary Care Nurse Name: Georgette Alford RN Position: [facility] RN Member Role: Primary Care Nurse Name: Kiley Catherine LPN Position: S RN Member Role: Primary Care Nurse Care Team Related Persons Name: VAISHALI LAWSON Address: home [address] [place] [address] Name: JALEESA CHAN Address: home [address] [place] [address] Name: SIERRA JANSEN Address: home [place], [place]
--- OUTSIDE RECORDS SUMMARY | 2022-08-13 11:25 | XMS_ITS | Continuity of Care Document ---
Author Name Unknown Organization [facility] ter Address [address] [place] [address]- Care Team Providers Care Printed Circuit Board Pcb Draftsman Name Role Phone Naseem Alford MD Primary Care Physician [place] [facility] [place] 05/30/21 - 05/30/[address] [address]- Encounter Diagnosis Left inguinal hernia(Final) - 05/30/21 Discharge Disposition: A-D/C Home Attending Physician: Joann [...] mL, 0 Refills, Maintenance,05/07/21 10:56:00 EST, [id number], Partial fill upon patient request if the prescription isfor a schedule II opioid drug., 177.8, cm, 05/07/21... Start Date: 05/07/21 Status: Ordered Colace sodium 100 mg oral capsule 100 mg, 1, capsule, By Mouth, 2 times a day, PRN, # 100 capsule, Refills 0, Tot. Refills 0, Maintenance, for constipation, 05/27/21 14:45:00 EDT, Route to Pharmacy Electronically, [facility], Partial fill upon patient request if the pres... Start Date: 05/27/21 Status: Ordered FENTanyl Inj 50 mcg, Injection, IV Push Slowly, Once, STAT, 05/30/21 9:37:00 EDT, Stop date 05/30/21 9:37:00 EDT Start Date: 05/30/21 Stop Date: 05/30/21 Status: Completed Imdur 30 mg oral tablet, [...] 06/01/21 13:19:00 EDT, 05/25/21 13:19:00 EDT, Ointment, [facility], Partial fill upon patient request if the prescription is for a schedule II opioid drug., 1... Start Date: 05/25/21 Stop Date: 06/01/21 Status: Ordered losartan 25 mg oral tablet 25 mg, 1, tablet, By Mouth, Daily, # 30 tablet, Refills 0, Tot. Refills 0, Maintenance, 02/26/21 16:36:00 EST, Route to Pharmacy Electronically, [facility], Partial fill upon patient request if the prescription is for a schedule II opioi... Start Date: 02/26/21 Status: Ordered metoprolol 50 mg oral tablet, extended release 75 mg, 1.5, tablet, By Mouth, 2 times a day, # 90 tablet, Refills 0, Tot. Refills 0, Maintenance, 01/25/21 10:53:00 EST, Route to Pharmacy Electronically, [facility], Partial fill upon patient request [...] 0 Refills, Maintenance, 01/25/21 10:54:00 EST, Tablet, [facility], Partial fill upon [...] 3 Oxygen Saturation [94-100 %] 100 % (05/30/21 12:02 PM) 100 % (05/30/21 10:33 AM) 100 % (05/30/21 9:07 AM) Pulse Rate [55-90 bpm] 60 bpm (05/30/21 12:02 PM) 60 bpm (05/30/21 10:33 AM) 60 bpm (05/30/21 9:07 AM) Blood Pressure [90-138/55-84 mm Hg] 124/71mm Hg (05/30/21 12:02 PM) 125/62mm Hg (05/30/21 10:33 AM) 160/79mm Hg *H* (05/30/21 9:07 AM) Respiratory Rate [16-30 br/min] 16 br/min (05/30/21 12:02 PM) 16 br/min (05/30/21 10:33 AM) 16 br/min (05/30/21 10:28 AM) Temperature [96.8-100.4 DegF] 98.2 DegF (05/30/21 12:02 PM) 98 DegF (05/30/21 9:07 AM) Mode of Delivery (Oxygen) Room air (05/30/21 12:02 PM) Room air (05/30/21 10:33 AM) Room air (05/30/21 9:07 AM) Blood pressure sites Arm, left (05/30/21 12:02 PM) Arm, left (05/30/21 10:33 AM) Arm, left (05/30/21 9:07 AM) Temperature Route Oral (05/30/21 12:02 PM) Oral (05/30/21 9:07 AM) Social History Social History Type Response Smoking Status Never (less than 100 in lifetime) entered on: 10/21/19 Sex
--- OUTSIDE RECORDS SUMMARY | 2022-08-13 11:25 | XMS_ITS | Continuity of Care Document ---
Author Name Unknown Organization [facility] Address [address] [place] [address]- Care Team Providers Care Freight Checker Name Role Phone Naseem Alford MD Primary Care Physician [place] [facility] [place] 06/12/21 - 07/12/21 [facility] [address], [place] [address] Attending Physician: Analy Conway Admitting Physician: Admtr, [id number] Referring Physician: Admtr, [id number] Allergies, Adverse Reactions, Alerts Substance Reaction Severity [...] mL, 0 Refills, Maintenance,05/07/21 10:56:00 EST, [id number], Partial fill upon patient request if the prescription isfor a schedule II opioid drug., 177.8, cm, 05/07/21... Start Date: 05/07/21 Status: Ordered Colace sodium 100 mg oral capsule 100 mg, 1, capsule, By Mouth, 2 times a day, PRN, # 100 capsule, Refills 0, Tot. Refills 0, Maintenance, for constipation, 05/27/21 14:45:00 EDT, Route to Pharmacy Electronically, [facility], Partial fill upon patient request [...] 16:36:00 EST, Route to Pharmacy Electronically, [facility], Partial fill upon patient request if the prescription is for a schedule II opioi... Start Date: 02/26/21 Status: Ordered metoprolol 50 mg oral tablet, extended release 75 mg, 1.5, tablet, By Mouth, 2 times a day, # 90 tablet, Refills 0, Tot. Refills 0, Maintenance, 01/25/21 10:53:00 EST, Route to Pharmacy Electronically, [facility], Partial fill upon patient request [...] Refills, Maintenance, 01/25/21 10:54:00 EST, Tablet, [facility], Partial fill upon patient [...] Implanted Date:06/24/21Target Site:Groin Left Description Quantity MRI FreeAgent Model MESH 3D MAX MID X-LG LT 5X7I N - BARD ([id number]) 1 Bard Unknown ADALI:{01}[id number] Assigning Author ity:FDA Implanted Date:06/24/21Target Site:Groin Right Description Quantity MRI FreeAgent Model MESH 3D MAX MID LG RT 4X6IN - BARD ([id number]) 1 Bard Unknown ADALI:{01}[id number]{10}HUFY [id number] Assigning Authority:FDA
--- OUTSIDE RECORDS SUMMARY | 2022-08-13 11:25 | XMS_ITS | Continuity of Care Document ---
Author Name Unknown Organization [facility] ter Address [address] [place] [address]- Care Team Providers Care Community Relations Assistant Name Role Phone Naseem Alford MD Primary Care Physician Encounter [facility] [place] Date(s): 10/29/20 - 11/01/[address] [address]- Encounter Diagnosis Chest pain(Final) - 10/29/20 Discharge Disposition: A-D/C Home Attending Physician: Faith Tee MD Admitting Physician: Yamil Mckee MD Referring Physician: Not on Staff, Referring [...] EDT, Tablet Start Date: 11/07/13 Status: Ordered lisinopril 10 mg oral tablet 10 mg, Tablet, By Mouth, 11/01/20 9:00:00 EDT Start Date: 11/01/20 Stop Date: 11/01/20 Status: Completed metoprolol 50 mg oral tablet, extended release 50 mg, XL Tablet, By Mouth, Hold for: HR<65, 11/01/20 9:00:00 EDT Start Date: 11/01/20 Stop Date: 11/01/20 Status: Completed Metoprolol Succinate ER 50 mg oral tablet, extended release 1 tablet = 50 mg, By Mouth, 2 times a day, Maintenance, 10/29/20 10:54:00 EDT, ; Start Date: 10/29/20 Status: Ordered nitroglycerin 0.4 mg sublingual tablet 1 tablet = 0.4 mg, Sublingual, Every 5 minutes, PRN as needed for chest pain, not to exceed 3 doses/15 min--if pain persists, seek medical attention, Maintenance, 10/29/20 10:56:00 EDT, Tablet, ; Start Date: 10/29/20 Status: Ordered Problem List Condition Effective Dates Status Health Status Inform ant Status post cardiac catheterization(Confirmed) Active Episode of syncope(Confirmed) Active Results Radiology Reports * Exam Date Time Procedure Performing Provider Status 10/29/20 8:15 AM Chest 2 Views Frontal and Lat Mandy Nair; Jerrica (Verified) Notes: (Chest 2 Views Frontal and Lat) Reason For Exam: Shortness of Breath RESULT: Chest 2 Views Frontal and Lat Examination: Chest performed on 10/29/2020. History: Chest pain. Hypertension. Shortness of breath. Findings: Frontal and lateral views of the chest are compared to a prior study dated 10/21/2019. The cardiac and mediastinal silhouettes are within normal limits. The lungs are clear. The osseous and soft tissue structures are unremarkable. Surgical clips are seen in the left upper quadrant and midline of the abdomen. Impression: There is no acute cardiopulmonary disease. WSN: [id number] Ordering Physician: Margarette Brown Dictated By: Violetta Hutchins MD Dictated Date/Time: 10/29/20 8:33 am Reviewed By: Violetta Hutchins MD Signed By: Violetta Hutchins MD Signed Date/Time: 10/29/20 8:33 am Transcribed By: LISA Transcribed Date/Time: 10/29/20 8:33 am Vital Signs Most recent to oldest [Reference Range]: 1 2 3 Height 178 cm (11/01/20 11:29 AM) 178 cm (11/01/20 7:52 AM) 178 cm (10/31/20 11:47 PM) Weight 87.2 kg (10/29/20 2:51 PM) Oxygen Saturation [94-100 %] 99 % (11/01/20 11:29 AM) 100 % (11/01/20 7:52 AM) 97 % (11/01/20 3:55 AM) Pulse Rate [55-90 bpm] 68 bpm (11/01/20 11:29 AM) 72 bpm (11/01/20 8:45 AM) 72 bpm (11/01/20 7:52 AM) Body Mass Index [18.5-24.99] 27.52 *H* (10/29/20 2:51 PM) Blood Pressure [90-138/55-84 mm Hg] 135/68mm Hg (11/01/20 11:29 AM) 139/93mm Hg *H* (11/01/20 8:45 AM) 139/93mm Hg *H* (11/01/20 8:45 AM) Respiratory Rate [16-30 br/min] 18 br/min (11/01/20 11:29 AM) 18 br/min (11/01/20 7:52 AM) 18 br/min (11/01/20 3:55 AM) Temperature [96.8-100.4 DegF] 97.8 DegF (11/01/20 11:29 AM) 98.2 DegF (11/01/20 7:52 AM) 98.1 DegF (11/01/20 3:55 AM) Mode of Delivery (Oxygen) Room air (11/01/20 11:29 AM) Room air (11/01/20 7:52 AM) Room air (11/01/20 3:55 AM) Blood pressure sites Arm, left (11/01/20 11:29 AM) Arm, left (11/01/20 7:52 AM) Arm, left (11/01/20 3:55 AM) Temperature Route Oral (11/01/20 11:29 AM) Oral (11/01/20 7:52 AM) Oral (11/01/20 3:55 AM) Dry Weight 87.2 kg (8/31/21 2:51 PM) Social History Social History Type Response Smoking Status Never (less than 100 in lifetime) entered on: 10/21/19 Sex
--- OUTSIDE RECORDS SUMMARY | 2022-08-13 11:25 | XMS_ITS | Continuity of Care Document ---
Author Name Unknown Organization [facility] ter Address [address] [place] [address]- Care Team Providers Care Accounts Payable Manager Name Role Phone Naseem Alford MD Primary Care Physician [phone] Encounter [facility] [place] Date(s): 01/21/21 - 01/25/[address] [address]- Encounter Diagnosis Precordial chest pain(Final) - 01/21/21 Discharge Disposition: A-D/C Home Attending Physician: Stacy Mark MD Admitting Physician: Yosef Marc MD Referring Physician: Not on Staff, Referring MD Allergies, Adverse Reactions, Alerts Substance Reaction Severity Status NKA Active Medications Acetaminophen Tablet 650 mg, Tablet, By Mouth, Every 4 hours, PRN for Pain , Mild, Temperature Greater than 100.5, Routine, 01/21/21 20:12:00 EST Start Date: 01/21/21 Stop Date: 01/25/21 Status: Discontinued allopurinol 100 mg oral tablet 1 tablet, [...] 11:11:51, Tablet Start Date: 11/07/13 Status: Ordered isosorbide mononitrate 30 mg oral tablet, extended release 1 tablet = 30 mg, By Mouth, Daily, # 30 tablet, 0 Refills, Maintenance, 01/25/21 10:54:00 EST, ER Tablet, [facility], Partial fill upon patient request if the prescription is for a schedule II opioid drug., 177.8, cm, 01/25/21 8:37:00 ES... Start Date: 01/25/21 Status: Ordered lisinopril 5 mg oral tablet 5 mg, 1, tablet, By Mouth, Daily, # 30 tablet, Refills 0, Tot. Refills 0, Maintenance, 01/25/21 10:51:00 EST, Route to Pharmacy Electronically, [facility], Partial fill upon patient request if the prescription is for a schedule II opioid... Start Date: 01/25/21 Status: Ordered metoprolol 50 mg oral tablet, extended release 75 mg, 1.5, tablet, By Mouth, 2 times a day, # 90 tablet, Refills 0, Tot. Refills 0, Maintenance, 01/25/21 10:53:00 EST, Route to Pharmacy Electronically, [facility], Partial fill upon patient request [...] ST elevation, administer only one tablet., Routine, 01/21/21 19:18:00 EST, Stop date Limited # of times Start Date: 01/21/21 Stop Date: 01/25/21 Status: Completed ticagrelor 90 mg oral tablet 1 tablet = 90 mg, By Mouth, 2 times a day, # 60 tablet, 0 Refills, Maintenance, 01/25/21 10:54:00 EST, [facility], Partial fill upon patient request if the prescription is for aschedule II opioid drug., 177.8, cm, 01/25/21 8:37:... Start Date: 01/25/21 Status: Ordered Problem List Condition Effective Dates Status Health Status Inform ant Status post cardiac catheterization(Confirmed) Active Episode of syncope(Confirmed) Active Results Radiology Reports * Exam Date Time Procedure Performing Provider Status 01/21/21 4:11 PM Chest Portable Christopher Grant; Aut h (Verified) Notes: (Chest Portable) Reason For Exam: Shortness of Breath RESULT: Chest Portable Chest Portable INDICATION: pt c o midsternal cp radiating down LUE beginning while shopping. Also c o generalized weakness. +mild sob on exertion. denies n v.; Reason: Shortness of Breath; Clinical Question(s): CHF COMPARISON: Prior chest radiographs most recently 10/29/2020. CT chest 10/20/2019. FINDINGS: LINES AND TUBES: None. LUNGS AND PLEURA: Clear lungs. Normal pulmonary vascularity. No pleural effusion. No pneumothorax. HEART, MEDIASTINUM AND TINY: Heart is normal in size. Normal upper mediastinal and hilar contour. BONES AND SOFT TISSUES: No acute abnormality. Unchanged surgical material in the upper abdomen. IMPRESSION: No acute abnormality. I have personally reviewed the images and I agree with this report. WSN: [id number] Ordering Physician: Lidia Osorio Dictated By: Jennifer Franco MD Dictated Date/Time: 01/21/21 4:19 pm Reviewed By: Jarrett Rodriguez MD Signed By: Jarrett Rodriguez MD Signed Date/Time: 01/21/21 4:24 pm Transcribed By: LISA Transcribed Date/Time: 01/21/21 4:15 pm Vital Signs Most recent to oldest [Reference Range]: 1 2 3 Height 177.8 cm (01/25/21 8:37 AM) 177.8 cm (01/25/21 3:26 AM) 177.8 cm (01/25/21 2:33 AM) Weight 84.1 kg (01/25/21 2:33 AM) 86.3 kg (01/21/21 8:52 PM) 88.6 kg (01/21/21 8:35 PM) Oxygen Saturation [94-100 %] 100 % (01/25/21 8:37 AM) 98 % (01/25/21 3:26 AM) 97 % (01/25/21 2:33 AM) Pulse Rate [55-90 bpm] 75 bpm (01/25/21 8:37 AM) 63 bpm (01/25/21 3:26 AM) 63 bpm (01/25/21 2:33 AM) Body Mass Index [18.5-24.99] 26.6 *H* (01/25/21 2:33 AM) 27.3 *H* (01/21/21 8:52 PM) Blood Pressure [90-138/55-84 mm Hg] 142/61mm Hg *H* (01/25/21 8:37 AM) 138/76mm Hg (01/25/21 3:26 AM) 103/52mm Hg (01/25/21 2:33 AM) Respiratory Rate [16-30 br/min] 18 br/min (01/25/21 8:37 AM) 20 br/min (01/25/21 6:00 AM) 20 br/min (01/25/21 6:00 AM) Temperature [96.8-100.4 DegF] 97.7 DegF (01/25/21 8:37 AM) 97.9 DegF (01/25/21 2:33 AM) 98 DegF (01/24/21 7:59 PM) Liters per Minute 2 L/min (01/23/21 7:36 AM) Mode of Delivery (Oxygen) Room air (01/25/21 8:37 AM) Room air (01/25/21 3:26 AM) Room air (01/25/21 2:33 AM) Blood pressure sites Arm, left (01/25/21 8:37 AM) Arm, right (01/25/21 3:26 AM) Arm, right (01/25/21 2:33 AM) Temperature Route Oral (01/25/21 8:37 AM) Oral (01/24/21 7:59 PM) Oral (01/24/21 7:42 AM) Dry Weight 86.3 kg (01/21/21 8:52 PM) Weight Obtained Via Bed scale (01/25/21 2:33 AM) Bed scale (01/21/21 8:35 PM) Social History Social History Type Response Smoking Status Never (less than 100 in lifetime) entered on: 10/21/19 Sex
--- OUTSIDE RECORDS SUMMARY | 2022-08-13 11:25 | XMS_ITS | Continuity of Care Document ---
Author Name Unknown Organization [facility] ter Address [address] [place] [address]- Care Team Providers Care Benzol Operator Name Role Phone Naseem Alford MD Primary Care Physician [phone] Encounter [facility] [place] Date(s): 03/31/21 - 04/03/[address] [address]- Encounter Diagnosis Chest pain(Final) - 03/31/21 Abdominal pain(Final) - 03/31/21 Discharge Disposition: A-D/C Home Attending Physician: King Cottrell MD Admitting Physician: Dennys Greer MD Referring Physician: Not on Staff, Referring [...] 02/26/21 10:51:00 EST, Route to Pharmacy Electronically, [facility], Partial fill upon [...] 02/26/21 16:36:00 EST, Route to Pharmacy Electronically, [facility], Partial fill upon patient request if the prescription is for a schedule II opioi... Start Date: 02/26/21 Status: Ordered losartan 25 mg oral tablet 25 mg, Tablet, By Mouth, 04/03/21 9:00:00 EST Start Date: 04/03/21 Stop Date: 04/03/21 Status: Completed metoprolol 25 mg oral tablet, extended release 75 mg, XL Tablet, By Mouth, 04/03/21 9:00:00 EST Start Date: 04/03/21 Stop Date: 04/03/21 Status: Completed metoprolol 50 mg oral tablet, extended release 75 mg, 1.5, tablet, By Mouth, 2 times a day, # 90 tablet, Refills 0, Tot. Refills 0, Maintenance, 01/25/21 10:53:00 EST, Route to Pharmacy Electronically, [facility], Partial fill upon patient request if the prescription is for a schedul... Start Date: 01/25/21 Status: Ordered MorPHINE Inj 3 mg, Injection, IV Push Slowly, Once, PRN for Pain , Severe, Routine, 04/03/21 12:15:00 EST Start Date: 04/03/21 Stop Date: 04/03/21 Status: Completed nitroglycerin 0.4 mg sublingual tablet [...] 0 Refills, Maintenance, 01/25/21 10:54:00 EST, Tablet, [facility], Partial fill upon patient request if the prescription is for aschedule II opioid drug., 177.8, cm, 01/25/21 8:37:... Start Date: 01/25/21 Status: Ordered Problem List Condition Effective Dates Status Health Status Inform ant Status post cardiac catheterization(Confirmed) Active Episode of syncope(Confirmed) Active Results Radiology Reports * Exam Date Time Procedure Performing Provider Status 03/31/21 11:14 AM Chest Portable Chirag Rivas (Verified) Notes: (Chest Portable) Reason For Exam: Shortness of Breath RESULT: Chest Portable Chest Portable Hx of Present Illness: From home, started having abd pain CP, been seen recently in [facility] ED forsimilar s s. Had stent placement in December 2020. Non-tender or non-rigid abd non-reproducable. +syncopal episode in rig needed sternal rub to arouse. No other complaints.; Reason: Shortness of Breath; Clinical Question(s): CHF COMPARISON: 03/13/2021 FINDINGS: LINES AND TUBES: None. LUNGS AND PLEURA: Clear lungs. Normal pulmonary vascularity. No pleural effusion. No pneumothorax. HEART, MEDIASTINUM AND TINY: Heart is normal in size. Normal upper mediastinal and hilar contour. BONES AND SOFT TISSUES: No acute abnormality. IMPRESSION: No acute abnormality. WSN: [id number] Ordering Physician: Kasandra Murillo Dictated By: Renae Hoffman MD Dictated Date/Time: 03/31/21 11:18 a Reviewed By: Renae Hoffman MD Signed By: Renae Hoffman MD Signed Date/Time: 03/31/21 11:18 am Transcribed By: LISA Transcribed Date/Time: 03/31/21 11:17 am Vital Signs Most recent to oldest [Reference Range]: 1 2 3 4 Height 178 cm (04/03/21 3:41 PM) 178 cm (04/03/21 1:21 PM) 178 cm (04/03/21 8:11 AM) Weight 85.7 kg (03/31/21 7:34 PM) 84 kg (03/31/21 7:31 PM) 87.1 kg (03/31/21 6:55 PM) Oxygen Saturation [94-100 %] 99 % (04/03/21 3:41 PM) 99 % (04/03/21 1:21 PM) 100 % (04/03/21 8:11 AM) Pulse Rate [55-90 bpm] 73 bpm (04/03/21 3:41 PM) 59 bpm (04/03/21 1:21 PM) 72 bpm (04/03/21 8:58 AM) Body Mass Index [18.5-24.99] 26.51 *H* (03/31/21 7:31 PM) Blood Pressure [90-138/55-84 mm Hg] 118/66mm Hg (04/03/21 3:41 PM) 135/66mm Hg (04/03/21 1:21 PM) 169/95mm Hg *H* (04/03/21 8:58 AM) 169/95mm Hg *H* (04/03/21 8:58 AM) Respiratory Rate [16-30 br/min] 17 br/min (04/03/21 3:41 PM) 20 br/min (04/03/21 1:21 PM) 18 br/min (04/03/21 12:21 PM) Temperature [96.8-100.4 DegF] 98.2 DegF (04/03/21 3:41 PM) 98.4 DegF (04/03/21 1:21 PM) 98.2 DegF (04/03/21 8:11 AM) Mode of Delivery (Oxygen) Room air (04/03/21 3:41 PM) Room air (04/03/21 1:21 PM) Room air (04/03/21 8:11 AM) Blood pressure sites Arm, left (04/03/21 3:41 PM) Arm, left (04/03/21 1:21 PM) Arm, left (04/03/21 8:11 AM) Temperature Route Oral (04/03/21 3:41 PM) Oral (04/03/21 1:21 PM) Oral (04/03/21 8:11 AM) Dry Weight 85.7 kg (03/31/21 7:34 PM) 84 kg (03/31/21 7:31 PM) Weight Obtained Via Standing scale (03/31/21 7:34 PM) Bed scale (03/31/21 6:55 PM) Dry Weight Obtained Via Standing scale (03/31/21 7:34 PM) Social History Social History Type Response Smoking Status Never (less than 100 in lifetime) entered on: 10/21/19 Sex
--- OUTSIDE RECORDS SUMMARY | 2022-08-13 11:25 | XMS_ITS | Continuity of Care Document ---
Author Name Unknown Organization [facility] Address [address] [place] [address]- Care Team Providers Care Transport Medic Name Role Phone Naseem Alford MD Primary Care Physician [phone] Encounter [facility] [place] Date(s): 07/24/22 - 07/25/[address] [address]- Discharge Disposition: A-D/C Home Attending Physician: Bryan MCRAE, Noemi Tucker Admitting Physician: Noemi Adams MD Referring Physician: Not on Staff, Referring [...] 8:31:00 EDT, Route to Pharmacy Electronically, [facility], Partial fill upon patient request if the prescription is for a philomena... Start Date: 05/13/22 Status: Ordered aspirin 81 mg oral delayed release tablet 81 mg, 1, tablet, By Mouth, Daily, # 30 tablet, Refills 0, Tot. Refills 0, Maintenance, 05/13/22 8:31:00 EDT, Route to Pharmacy Electronically, [facility], Partial fill upon patient request if the prescription is for a schedule II opioid... Start Date: 05/13/22 Status: Ordered atorvastatin 80 mg oral tablet 1 tablet = 80 mg, By Mouth, Daily, # 30 tablet, 5 Refills, Maintenance, 05/13/22 8:31:00 EDT, Tablet, [facility], Partial fill upon patient request if the prescription is for a scheduleII opioid drug., 179, cm, 05/13/22 7:32:00 EDT, Hei... Start Date: 05/13/22 Status: Ordered Carafate 1 gm/10 ml oral suspension 10 mL = 1 Gm, By Mouth, 3 times a day before meals and bedtime, # 1,200 mL, 1 Refills, Maintenance,07/01/22 8:49:00 EDT, [facility], Partial fill upon patient request if the prescription is for a schedule II opioid drug., 178, cm, 07/01... Start Date: 07/01/22 Status: Ordered Flonase 50 mcg/inh nasal spray 1 sprays, Nares, Both, 2 times a day, PRN Nasal Congestion, 0 Refills, Maintenance, 06/20/22 2:12:00 EDT, [place], Partial fill upon patient request if the prescription is for a schedule II opioid drug. Start Date: 06/20/22 Status: Ordered isosorbide mononitrate 30 mg oral tablet, extended release 1 tablet = 30 mg, By Mouth, Daily in AM, # 30 tablet, 0 Refills, Maintenance, 05/13/22 8:31:00 EDT,ER Tablet, [facility], Partial fill upon patient request if the prescription is for aschedule II opioid drug., 179, cm, 05/13/22 7:32:00... Start Date: 05/13/22 Status: Ordered losartan 25 mg oral tablet 25 mg, 1, tablet, By Mouth, Daily, # 30 tablet, Refills 0, Tot. Refills 0, Maintenance, 05/13/22 8:31:00 EDT, Route to Pharmacy Electronically, [facility], Partial fill upon patient request if the prescription is for a schedule II opioid... Start Date: 05/13/22 Status: Ordered metoprolol 50 mg oral tablet, extended release 50 mg, 1, tablet, By Mouth, Daily in AM, # 30 tablet, Refills 2, Tot. Refills 2, Maintenance, 05/13/22 8:31:00 EDT, Route to Pharmacy Electronically, [facility], Partial fill upon patient request if [...] Maintenance, 07/01/22 8:50:00 EDT, EC Capsule, [facility], Partial fill [...] Exam Date Time Procedure Performing Provider Status 07/24/22 10:56 PM Abdomen AP Claudia Mack; Auth (V erified) Notes: (Abdomen AP) Reason For Exam: hx: gastric ulcer;Pain RESULT: XR Abdomen AP XR Abdomen AP 1 view INDICATION/CLINICAL QUESTION: Hx of Present Illness: from homeless long term, 1 hr ago having chest pain, along with abdominal pain, discharged from [facility] this am after seeking treatment for gastric ulcer. taking carafate.; Reason: Pain; hx: gastric ulcer; Clinical Question(s): Free Air COMPARISON: CT 06/30/2022 FINDINGS: Nonspecific nonobstructive bowel gas pattern. Left upper quadrant clips again noted. No free air. No air-fluid levels. No acute bone findings. IMPRESSION: Nonspecific nonobstructive bowel gas pattern. No pneumoperitoneum. Left upper quadrant and mid epigastric clips. WSN: [id number] Ordering Physician: Kelsey Sheets Dictated By: David Kiser MD Dictated Date/Time: 07/24/22 11:05 p Reviewed By: David Kiser MD Signed By: David Kiser MD Signed Date/Time: 07/24/22 11:05 pm Transcribed By: LISA Transcribed Date/Time: 07/24/22 11:02 pm * Exam Date Time Procedure Performing Provider Status 07/24/22 8:01 PM Chest 2 Views Frontal and Lat Gurwinder Mack; Auth (Verified) Notes: (Chest 2 Views Frontal and Lat) Reason For Exam: Chest Pain;Other: RESULT: Chest 2 Views Frontal and Lat Chest 2 Views Frontal and Lat Hx of Present Illness: from homeless long term, 1 hr ago having chest pain, along with abdominal pain, discharged from [facility] this am after seeking treatment for gastric ulcer. taking carafate.; Reason: Other:; Chest Pain; Clinical Question(s): Other: COMPARISON: X-ray 06/29/2022 FINDINGS: LINES AND TUBES: None. LUNGS AND PLEURA: Clear lungs. Normal pulmonary vascularity. No pleural effusion. No pneumothorax. HEART, MEDIASTINUM AND TINY: Heart is normal in size. Normal mediastinal and hilar contour. BONES AND SOFT TISSUES: No acute abnormality. IMPRESSION: No radiographic evidence of acute cardiopulmonary pathology. WSN: [id number] Ordering Physician: Los Eisenberg Dictated By: David Kiser MD Dictated Date/Time: 07/24/22 8:14 pm Reviewed By: David Kiser MD Signed By: David Kiser MD Signed Date/Time: 07/24/22 8:14 pm Transcribed By: LISA Transcribed Date/Time: 07/24/22 8:14 pm Vital Signs Most recent to oldest [Reference Range]: 1 2 3 Oxygen Saturation [94-100 %] 99 % (07/25/22 2:21 AM) 99 % (07/24/22 11:18 PM) 100 % (07/24/22 9:27 PM) Pulse Rate [55-90 bpm] 68 bpm (07/25/22 2:21 AM) 61 bpm (07/24/22 11:18 PM) 64 bpm (07/24/22 9:27 PM) Blood Pressure [90-138/55-84 mm Hg] 165/68mm Hg *H* (07/25/22 2:21 AM) 163/78mm Hg *H* (07/24/22 11:18 PM) 190/88mm Hg *H* (07/24/22 9:27 PM) Respiratory Rate [16-30 br/min] 16 br/min (07/25/22 2:21 AM) 11 br/min *L* (07/24/22 11:18 PM) 18 br/min (07/24/22 9:27 PM) Temperature [96.8-100.4 DegF] 97.7 DegF (07/24/22 9:27 PM) 98.0 DegF (07/24/22 6:40 PM) Mode of Delivery (Oxygen) Room air (07/25/22 2:21 AM) Room air (07/24/22 11:18 PM) Room air (07/24/22 9:27 PM) Blood pressure sites Arm, left (07/25/22 2:21 AM) Arm, left (07/24/22 11:18 PM) Arm, left (07/24/22 9:27 PM) Temperature Route Oral (07/24/22 9:27 PM) Oral (07/24/22 6:40 PM) Social History Social History Type Response Smoking Status Never (less than 100 in lifetime) entered on: 10/21/19 Sex Implantable Device List Procedure Provider Procedure Date Device Type Site Repair Hernia Inguinal Laparoscopic Charan Mckeon MD 06/24/21 Unknown Groin Right Device Identifier Serial Number Lot or Batch Number Manufacturing Date Expiration Date Distinct Identification Code MRI Safety Implantable Status Assigning Authority [id number] Unknown [id number] Unknown 12/26/25 Unknown Unknown Active GS1 Procedure Provider Procedure Date Device Type Site Repair Hernia Inguinal Laparoscopic Charan Mckeon MD 06/24/21 Unknown Groin Left Device Identifier Serial Number Lot or Batch Number Manufacturing Date Expiration Date Distinct Identification Code MRI Safety Implantable Status Assigning Authority [id number] Unknown Unknown Unknown 04/28/25 Unknown Unknown Active GS1 EKG study * Event Display: EKG Authored Date: [id number] Note * Ondina STERLING, Stephanie Brown: PERFORM Event Display: Patient Education Leaflets Authored Date: [id number] Unknown Causes of Abdominal Pain (Adult) ?? [id number] Unknown Causes of Abdominal Pain (Adult) The exact cause of your belly (abdominal) pain is not clear. Your exam and tests don't suggest a dangerous cause at this time. This does not mean that this is something to worry about. Everyone likesto know the exact cause of the problem. But sometimes with belly pain, there is no clear-cut cause,and this could be a good thing. Your symptoms can be treated, and you should feel better.?? Your condition does not seem serious now. But sometimes the signs of a serious problem may take more time to appear. For this reason,??it's important for you to watch for any new symptoms, problems,??or worsening of your condition. Over the next few days, the abdominal pain may come and go. Or it may be constant. Other common symptoms can include nausea and vomiting. Sometimes it can be difficult to tell if you feel nauseous. You may just feel bad and not connect that feeling to nausea. Constipation, diarrhea, and a fever maygo along with the pain. The pain may continue even if treated correctly over the following days. Depending on how things go, sometimes the cause can become clear and you may need more??or different treatment. You may also need other evaluations, medicines, or tests. Home care Your healthcare provider may prescribe medicine for pain, symptoms, or an infection. ??Follow the healthcare provider's instructions for taking these medicines. General care ??? Rest as much as you can until your next exam. No strenuous activities. ??? Try to not do anything that may have caused your symptoms. This might be not taking any medicines unless otherwise directed by your healthcare provider. It might be not eating certain foods or doing certain activities. ??? Find positions that ease discomfort. A small pillow placed on your belly may help relieve pain. ??? Something warm on your belly such as a heating pad may help, but be careful not to burn yourself. Diet ??? Don???t??force yourself to eat, especially if having cramps, vomiting, or diarrhea. ??? Water is important so you don't get dehydrated. Soup may also be good. Sports drinks may also help, especially if they are not too acidic. Don't drink sugary drinks as this can make things worse. Take liquids in small amounts. Don???t??guzzle them. ??? Caffeine sometimes makes the pain and cramping worse. ??? Don???t take??dairy products if you have vomiting or diarrhea. ??? Don't eat large amounts at a time. Eat several small meals during the day instead of 2 or 3 larger meals. Wait a few minutesbetween bites. ??? Eat a diet low in fiber (called a low-residue diet). Foods allowed include refined breads, white rice, fruit and vegetable juices without pulp, tender meats. These foods will pass more easily through the intestine. ??? Don???t have??whole-grain foods, whole fruits and vegetables,meats, seeds and nuts, fried or fatty foods, dairy, alcohol and spicy foods until your symptoms go away. ?? Follow-up care Follow up with your healthcare provider, or as advised, if your pain does not begin to improve in the next 24 hours. ?? Call 911 Call?? 911 if any of these occur: ??? Trouble breathing ??? Confusion ??? Fainting or loss of consciousness ??? Rapid heart rate ??? Seizure ?? When to seek medical advice Call your healthcare provider right away if any of these occur: ??? Pain gets worse or moves to theright lower abdomen ??? New or worsening vomiting or diarrhea ??? Swelling of the abdomen ??? Unable to pass stool for more than??3 days ??? Fever of 100.4??F (38??C) or higher, or as directed by your healthcare provider ??? Blood in vomit or bowel movements (dark red or black color) ??? Yellow color of eyes and skin (jaundice) ??? Weakness, dizziness ??? Chest, arm, back, neck, or jaw pain ??? Can't keep down medicines, liquids, or water because of too much vomiting ??? If you have a vagina: unexpected vaginal bleeding or missed period ?? Last Reviewed Date: 2020 ?? 0935-3030 The [employer]. All rights reserved. This information is not intended as a substitute for professional medical care. Always follow your healthcare professional's instructions. ?? Laboratory * Carlos Ascmichaelbe , CIS S: TRANSCRIBE David Kiser MD: VERIFY Event Display: Result: Authored Date: Chest 2 Views Frontal and Lat Hx of Present Illness: from homeless long term, 1 hr ago having chest pain, along with abdominal pain, discharged from [facility] this am after seeking treatment for gastric ulcer. taking carafate.; Reason: Other:; Chest Pain; Clinical Question(s): Other: COMPARISON: X-ray 06/29/2022 FINDINGS: LINES AND TUBES: None. LUNGS AND PLEURA: Clear lungs. Normal pulmonary vascularity. No pleural effusion. No pneumothorax. HEART, MEDIASTINUM AND TINY: Heart is normal in size. Normal mediastinal and hilar contour. BONES AND SOFT TISSUES: No acute abnormality. IMPRESSION: No radiographic evidence of acute cardiopulmonary pathology. WSN: [id number] Ordering Physician: Los Eisenberg Dictated By: David Kiser MD Dictated Date/Time: 07/24/22 8:14 pm Reviewed By: David Kiser MD Signed By: David Kiser MD Signed Date/Time: 07/24/22 8:14 pm Transcribed By: LISA Transcribed Date/Time: 07/24/22 8:14 pm XR Abdomen AP * [facility] , CIS S: TRANSCRIBE David Kiser MD: VERIFY Event Display: Result: Authored Date: XR Abdomen AP 1 view INDICATION/CLINICAL QUESTION: Hx of Present Illness: from homeless long term, 1 hr ago having chest pain, along with abdominal pain, discharged from [facility] this am after seeking treatment for gastric ulcer. taking carafate.; Reason: Pain; hx: gastric ulcer; Clinical Question(s): Free Air COMPARISON: CT 06/30/2022 FINDINGS: Nonspecific nonobstructive bowel gas pattern. Left upper quadrant clips again noted. No free air. No air-fluid levels. No acute bone findings. IMPRESSION: Nonspecific nonobstructive bowel gas pattern. No pneumoperitoneum. Left upper quadrant and mid epigastric clips. WSN: [id number] Ordering Physician: Kelsey Sheets Dictated By: David Kiser MD Dictated Date/Time: 07/24/22 11:05 p Reviewed By: David Kiser MD Signed By: David Kiser MD Signed Date/Time: 07/24/22 11:05 pm Transcribed By: LISA Transcribed Date/Time: 07/24/22 11:02 pm Patient Care team information Care Team Personnel Name: Vamshi HAYDEN Rosmery Wyattbijalodalys Position: [facility] RN Member Role: Primary Care Nurse Name: Jolynn Bhatti RN Position: [facility] RN Member Role: Primary Care Nurse Name: Petty Hines RN Position: [facility] RN Member Role: Primary Care Nurse Name: Naseem Alford MD Position: [facility] Outreach Member Role: PCP Address: Address: [address] [place] [address] Prashanth [place]CRAE [place], [place] [address] Name: Heather Garrett RN Position: [facility] RN Member Role: Primary Care Nurse Name: Tila Stock RN Position: [facility] RN Member Role: Primary Care Nurse Name: Roberta Noel RN Position: [facility] RN Member Role: Primary Care Nurse Name: Grace Almanzar RN Position: [facility] RN Member Role: Primary Care Nurse Name: Mercedez Zuniga RN Position: [facility] RN Member Role: Primary Care Nurse Name: Franco Sanchez RN Position: [facility] RN Member Role: Primary Care Nurse Name: Nathaly Zimmer RN Position: [facility] RN Member Role: Primary Care Nurse Name: Natalie Carmichael RN Position: [facility] RN Member Role: Primary Care Nurse Name: Romina Delarosa RN Position: [facility] RN Member Role: Primary Care Nurse Name: Georgette Mesa RN Position: [facility] RN Member Role: Primary Care Nurse Name: Beti Sparks RN Position: [facility] RN Member Role: Primary Care Nurse Name: Marge Bell RN Position: [facility] RN Member Role: Primary Care Nurse Name: Kiley Catherine LPN Position: [facility] RN Member Role: Primary Care Nurse Name: Ann Lee Position: [facility] ED TA [facility] Member Role: Patient Care Provider Name: Corina Owens RN Position: [facility] ED RN W/OE and Tasks Member Role: Patient Care Provider Name: Stephanie Nj NP Position: [facility] Associate Professional Member Role: ED Physician Appliance Mechanic Address: Address: [address] [place] [address]- Name: Noemi Adams MD Position: [facility] ED Medicine MD Member Role: ED Attending Physician Address: Address: [address] [place] [address]- Care Team Related Persons Name: VAISHALI LAWSON Address: home [address] [place] [address] Name: AUGUSTINA LAWSON Address: home UNKNOWN [id number] Name: JALEESA CHAN Address: home [address] [place] [address]
--- OUTSIDE RECORDS SUMMARY | 2022-08-13 11:26 | XMS_ITS | Continuity of Care Document ---
Author Name Unknown Organization [facility] ter Address [address] [place] [address]- Care Team Providers Care Thread Singer Name Role Phone Naseem Alford MD Primary Care Physician [phone] Encounter [facility] [place] Date(s): 06/02/21 - 06/03/[address] [address]- Encounter Diagnosis Inguinal hernia of left side without obstruction or gangrene(Final) - 06/02/21 Chest pain(Final) - 06/02/21 Discharge Disposition: A-D/C Home Attending Physician: Dennys Greer MD Admitting Physician: Bozena Anne MD Referring Physician: Not on Staff, Referring [...] mL, 0 Refills, Maintenance,05/07/21 10:56:00 EST, [id number], Partial fill upon patient request if the prescription isfor a schedule II opioid drug., 177.8, cm, 05/07/21... Start Date: 05/07/21 Status: Ordered Colace sodium 100 mg oral capsule 100 mg, 1, capsule, By Mouth, 2 times a day, PRN, # 100 capsule, Refills 0, Tot. Refills 0, Maintenance, for constipation, 05/27/21 14:45:00 EDT, Route to Pharmacy Electronically, [facility], Partial fill upon patient request if the pres... Start Date: 05/27/21 Status: Ordered Imdur 30 mg oral tablet, extended release 60 mg, By Mouth, Daily, Refills 0, Maintenance, 04/02/21 10:43:00 EST, Partial fill upon patient request if the prescription is for a schedule II opioid drug. Start Date: 04/02/21 Status: Ordered losartan 25 mg oral tablet 25 mg, Tablet, By Mouth, 06/03/21 9:00:00 EDT Start Date: 06/03/21 Stop Date: 06/03/21 Status: Completed losartan 25 mg oral tablet 25 mg, 1, tablet, By Mouth, Daily, # 30 tablet, Refills 0, Tot. Refills 0, Maintenance, 02/26/21 16:36:00 EST, Route to Pharmacy Electronically, [facility], Partial fill upon patient request if the prescription is for a schedule II opioi... Start Date: 02/26/21 Status: Ordered metoprolol 25 mg oral tablet 75 mg, Tablet, By Mouth, 06/03/21 9:00:00 EDT Start Date: 06/03/21 Stop Date: 06/03/21 Status: Completed metoprolol 50 mg oral tablet, extended release 75 mg, 1.5, tablet, By Mouth, 2 times a day, # 90 tablet, Refills 0, Tot. Refills 0, Maintenance, 01/25/21 10:53:00 EST, Route to Pharmacy Electronically, [facility], Partial fill upon patient request [...] 0 Refills, Maintenance, 01/25/21 10:54:00 EST, Tablet, [facility], Partial fill upon [...] Exam Date Time Procedure Performing Provider Status 06/02/21 2:11 PM Chest 2 Views Frontal and Lat Bein , Da na; Auth (Verified) Notes: (Chest 2 Views Frontal and Lat) Reason For Exam: Angina RESULT: Chest 2 Views Frontal and Lat Chest 2 Views Frontal and Lat INDICATION: Angina. COMPARISON: 05/08/2021. FINDINGS: LINES AND TUBES: None. LUNGS AND PLEURA: Clear lungs. Normal pulmonary vascularity. No pleural effusion. No pneumothorax. HEART, MEDIASTINUM AND TINY: Heart is normal in size. Normal upper mediastinal and hilar contour. BONES AND SOFT TISSUES: No acute osseous abnormality. Multiple surgical clips in the mid and left upper abdomen. IMPRESSION: No acute abnormality. I have personally reviewed the images and I agree with this report. WSN: [id number] Ordering Physician: Ruth Steiner Dictated By: Denis Roque MD Dictated Date/Time: 06/02/21 2:32 pm Reviewed By: Luke Gunter MD Signed By: Luke Gunter MD Signed Date/Time: 06/02/21 2:37 pm Transcribed By: LISA Transcribed Date/Time: 06/02/21 2:31 pm Vital Signs Most recent to oldest [Reference Range]: 1 2 3 Height 178 cm (06/03/21 7:40 AM) 178 cm (06/03/21 4:10 AM) 178 cm (06/03/21 12:34 AM) Weight 83 kg (06/02/21 11:54 PM) Oxygen Saturation [94-100 %] 100 % (06/03/21 7:40 AM) 100 % (06/03/21 4:10 AM) 100 % (06/03/21 12:34 AM) Pulse Rate [55-90 bpm] 60 bpm (06/03/21 8:40 AM) 60 bpm (06/03/21 7:40 AM) 58 bpm (06/03/21 4:10 AM) Body Mass Index [18.5-24.99] 26.2 *H* (06/02/21 11:54 PM) Blood Pressure [90-138/55-84 mm Hg] 165/74mm Hg *H* (06/03/21 8:40 AM) 165/74mm Hg *H* (06/03/21 8:40 AM) 165/74mm Hg *H* (06/03/21 7:40 AM) Respiratory Rate [16-30 br/min] 14 br/min *L* (06/03/21 7:40 AM) 18 br/min (06/03/21 4:10 AM) 18 br/min (06/03/21 12:34 AM) Temperature [96.8-100.4 DegF] 98.3 DegF (06/03/21 7:40 AM) 97.6 DegF (06/03/21 4:10 AM) 97.8 DegF (06/03/21 12:34 AM) Mode of Delivery (Oxygen) Room air (06/03/21 7:40 AM) Room air (06/03/21 4:10 AM) Room air (06/03/21 12:34 AM) Blood pressure sites Arm, right (06/03/21 7:40 AM) Arm, left (06/03/21 4:10 AM) Arm, left (06/03/21 12:34 AM) Temperature Route Oral (06/03/21 7:40 AM) Oral (06/03/21 4:10 AM) Oral (06/03/21 12:34 AM) Dry Weight 83 kg (06/02/21 11:54 PM) Weight Obtained Via Bed scale (06/02/21 11:54 PM) Social History Social History Type Response Smoking Status Never (less than 100 in lifetime) entered on: 05/31/21 Sex
--- OUTSIDE RECORDS SUMMARY | 2022-08-13 11:26 | XMS_ITS | Continuity of Care Document ---
Author Name Unknown Organization [facility] Address [address] [place] [address]- Care Team Providers Care Chemical Process Operator Name Role Phone Naseem Alford MD Primary Care Physician [facility] [facility] [facility] [place] [id number] Date(s): 09/15/21 - 10/15/21 [facility] [address] [place] [address]- Attending Physician: Analy Conway Admitting Physician: Analy Conway Referring Physician: Analy Conway Allergies, Adverse Reactions, [...] 1,200 mL, 0 Refills, Maintenance,05/07/21 10:56:00 EST, [id number], Partial fill upon patient request [...] AM, 0 Refills, Maintenance, 09/05/21 21:24:00 EDT, [place], Partial fill upon patient request if the [...] 02/26/21 16:36:00 EST, Route to Pharmacy Electronically, [facility], Partial fill upon patient request if the prescription is for a schedule II opioi... Start Date: 02/26/21 Status: Ordered metoprolol 50 mg oral tablet, extended release 50 mg, 1, tablet, By Mouth, Daily in AM, # 30 tablet, Refills 2, Tot. Refills 2, Maintenance, 09/19/21 13:34:00 EDT, Route to Pharmacy Electronically, [id number], Partial fill upon patient request [...] 0 Refills, Maintenance, 01/25/21 10:54:00 EST, Tablet, [facility], Partial fill upon patient [...] Equipment Implanted Date:06/24/21Target Site:Groin Left Description Quantity Local Eye Site Model MESH 3D MAX MID X-LG LT 5X7I N - BARD ([id number]) 1 Bard Unknown ADALI:{01}[id number] Assigning Author ity:FDA Implanted Date:06/24/21Target Site:Groin Right Description Quantity MRI Visualtising Model MESH 3D MAX MID LG RT 4X6IN - BARD ([id number]) 1 Bard Unknown ADALI:{01}[id number]{17}[id number]{10}HUYOSVANY AB06 Assigning Authority:FDA
--- OUTSIDE RECORDS SUMMARY | 2022-08-13 11:26 | XMS_ITS | Continuity of Care Document ---
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 Continue allopurinol. Anemia: At baseline, ?? Exam at discharge: HEENT : Moist mucous membranes. Respiratory : Clear to auscultation bilaterally? Cardiac : no M/G/R.? Abdomen/GI : soft, non-tender.? Extremities : no clubbing, no cyanosis.? Neurologic : Alert & oriented x 3 . ? Pending Results Add On Lab Order ordered on 05/31/2022 US Doppler Ext Lower Venous Left ordered on 05/31/2022 Follow-Up Appointments Added Follow Up ?Time Frame ?Comments Naseem Alford MD?2 to 3 weeks Post Discharge Care Discharge ?06/01/22 12:14:00 EDT Discharge Prescriptions ?None, ??06/01/22 12:14:00 EDT 35??minutes spent on discharge * Kiley Catherine LPN: PERFORM Event Display: Patient Education/Instruction Authored Date: [id number] Inpatient Adult Discharge Instructions [address] [id number] Name: FERMÍN AMATO : 1955 Visit: 05/31/2022 15:51:00 Current Date: 06/01/2022 12:21 Account: [id number] Inpatient Adult Discharge Instructions We would like [...] and their families. Surveys are administered by [facility] ?? If further treatment with your primary care physician or another doctor is recommended, it is important for you to keep the appointment. Call your primary care physician or return to the Emergency Department immediately if your condition worsens, fails to improve, or new symptoms develop. If you need to find a doctor, you can call [facility] [employer] for a referral at [phone] or toll free at [phone] [phone]) or log in to [email or web address].. ?? You can view and manage your care through the patient portal or by using a health care yoav of your choosing. [employer] is a website that allows you to securely view your medical information including your hospital discharge summary, office visit summaries, medications and follow-up visits. You can also request appointments, renew medications, and request access to your medical information using a health care yoav of your choosing, or just ask a question. You can enroll at [email or web address] or register during your next office visit. You have been discharged from [facility], Patient Care Unit: D3B. If you have any questions regarding these instructions after you leave, please call us and we will be happy to assist you. [facility] Your Care Team Attending Physician Faith Tee MD Discharging Providers Faith Tee MD Reason for Admission Pt had unwitnessed fall this morning hitting head, denies blood thinners. Pt denies neck/back pain,denies loc. Per ems report pt c/o bilateral lower extremity pain. Pt recently treated rhabdo 2 weeks ago. Pt coming from liquor store, homeless Your Diagnosis Syncope Homeless Left leg swelling Syncope Tests Performed Below is a partial list of the tests performed during your hospitalization. You may have had other tests and procedures not included in this list. Please discuss all test results with your provider. CBC w/ Differential CK (CREATINE KINASE) CKMB CONFIRMATION/QUANT Comprehensive Metabolic Panel COVID-19, RSV, and Flu A/B, Rapid PCR High Sensitivity Troponin T INR Lactate Level Magnesium Level ProBNP Troponin T, High Sensitivity TSH with T4 Reflex (Adults Only) Urinalysis w/hold for Urine Culture CT Cervical Spine W/O Contrast CT Head/Brain W/O Contrast Venous Doppler Ext Lower Left (US)?-- Results Pending -- XR Chest 2 Views Frontal and Lat ? You will be contacted within 72 hours with your results. Primary Care Provider Naseem Alford MD Advance Directive Health Care Proxy on File Yes - Health Care Proxy Discharge Vitals Temperature: 98.8 DegF Pulse Rate: 62 bpm Respiratory Rate: 17 br/min Systolic Blood Pressure:??151 mm Hg??High Diastolic Blood Pressure: 82 mm Hg Oxygen Saturation: 100 % Studies Pending All tests and labs ordered during this hospital stay have been completed unless listed below. Please discuss all pending results with your provider listed above in these instructions. ?? Add On Lab Order US Doppler Ext Lower Venous Left (Venous Doppler Ext Lower Left (US)) What to do next Instructions From Your Doctor Discharge Orders You Need to Schedule the Following Appointments Follow Up with??Naseem Alford MD When??Within 2 to 3 weeks Where: [address] [place] [address]- Discharge Medications FERMÍN AMATO :1955 Visit Date:05/31/2022 Medications: Please continue your medications until treatment is completed or stopped by your provider. Medications not listed below should be discontinued. Discuss any questions related to medications with your provider. What How Much When Instructions Next Dose Unchanged Allopurinol (allopurinol 100 mg oral tablet) 1 tab(s) Oral Daily before dinner 06/01/22 daily before dinner Unchanged Aspirin (aspirin 81 mg oral delayed release tablet) 1 tab(s) Oral Daily 06/02/22 Unchanged Atorvastatin (atorvastatin 80 mg oral tablet) 1 tab(s) Oral Daily 06/02/22 Unchanged Fluticasone Nasal (Flonase 50 mcg/ inh nasal spray) 1 spray(s) Nares, Both Daily in the morning as needed for Congestion Duration: 30 Days as needed follow as prescribe Unchanged Isosorbide Mononitrate (isosorbide mononitrate 30 mg oral tablet, extended release) 1 tab(s) Oral Daily in the morning 06/02/22 Unchanged Losartan (losartan 25 mg oral tablet) 1 tab(s) Oral Daily 06/02/22 Unchanged Metoprolol (metoprolol 50 mg oral tablet, extended release) 1 tab(s) Oral Daily in the morning 06/02/22 Test Results Below is a partial list of the most recent Laboratory test results done prior to this discharge. You may have had other tests and procedures not included in this list. Please discuss all test resultswith your provider. CBC w/ Differential (05/31/2022) ???WBC - 4.7 k/mm3???RBC - 3.20 m/mm3???Hgb - 10.4 Gm/dL???Hct - 31.7 %???MCV - 99.1 femtoliters???MCH - 32.5 pg???MCHC - 32.8 g/dL???Platelet Count - 309 k/mm3???RDW-SD - 49.8 femtoliters???MPV - 9.2 femtoliters???Nucleated RBC (Automated) - 0.0 #/100 WBC'S???Abs. NRBC - 0.0 k/mm3???Abs. Neut - 2.6 k/mm3???Abs. Lymph - 1.3 k/mm3???Abs. [place] - 0.6 k/mm3???Abs. Eo - 0.2 k/mm3???Abs. Baso - 0.0 k/mm3???Neut % - 54.4 %???Lymph % - 28.0 %???[place] % - 11.8 %???Eos % - 4.7 %???Baso % - 0.9 %???Imm Gran - 0.2 %???Abs. Imm Gran - 0.0 k/mm3 CK (CREATINE KINASE) (05/31/2022) ???CK, Total - 152 units/L CKMB CONFIRMATION/QUANT (05/31/2022) ???CK MB Confirmation - Quant - 4.3 ng/mL Comprehensive Metabolic Panel (05/31/2022) ???Sodium - 144 mmol/L???Potassium - 4.3 mmol/L???Chloride - 111 mmol/L???Bicarbonate Level - 24 mmol/L???Anion Gap - 9???Glucose Level - 110 mg/dL???BUN - 19 mg/dL???Creatinine-Blood - 0.9 mg/dL???Estimated GFR Creatinine - 94 ML/MIN/1.73 M2???Calcium - 9.3 mg/dL???Protein, Total - 5.8 Gm/dL???Albumin - 4.0 Gm/dL???AG Ratio - 2.2???Alkaline Phosphatase - 119 units/L???AST (SGOT) - 27 units/L???ALT (SGPT) - 17 units/L???Bilirubin, Total - 0.3 mg/dL COVID-19, RSV, and Flu A/B, Rapid PCR (05/31/2022) ???Influenza A PCR - NEGATIVE???Influenza B PCR - NEGATIVE???RSV PCR - NEGATIVE???COVID-19 PCR Specimen Source - NASAL???COVID-19 PCR Result - NEGATIVE High Sensitivity Troponin T (06/01/2022) ???High Sensitivity Troponin (HSTnT) - 23 ng/L INR (05/31/2022) ???INR - 1.1???Protime (PT) - 11.3 seconds Lactate Level (05/31/2022) ???Lactate - 1.7 mmol/L Magnesium Level (05/31/2022) ???Magnesium - 2.0 mg/dL ProBNP (05/31/2022) ???Nt-Probnp - 237 pg/mL Troponin T, High Sensitivity (05/31/2022) ???High Sensitivity Troponin (HSTnT) - 17 ng/L TSH with T4 Reflex (Adults Only) (05/31/2022) ???TSH - 2.17 uIU/mL Urinalysis w/hold for Urine Culture (05/31/2022) ???Appear/Color, Urine - LIGHT YELLOW???Specific [place], Urine - 1.019???pH, Urine - 6.0???Albumin, Urine - NEGATIVE???Glucose, Urine - NEGATIVE???Ketones, Urine - NEGATIVE???Bilirubin, Urine - NEGATIVE???Hemoglobin, Urine - NEGATIVE???Nitrite, Urine - NEGATIVE???Leukocyte, Urine - NEGATIVE???Urobi linogen - NORMAL? ?WBC's, Urine - 1 /HPF? ?RBC's, Urine - 1 /HPF? ?Squamous Epith - <1 /HPF? ?Mucus - SLIGHT???Hold Urine Culture - Testing available 48 [...] Belongings I fully understand and agree that [facility] accepts no responsibility for all my personal [...] patient Date for Pt to Sign Valuables/Belongings: 06/01/22 11:56:00 ?? Other Discharge Information ? Pulmonary Rehab Status?? Pulmonary Rehab Discharge Status?? Respiratory Rate: 17 br/min ? Common Emergency Awareness Tips IS [...] are strongly encouraged to quit. Please call [facility] [employer] at [phone] or [phone] ([phone]) or log in to [email or web address] for referrals to smoking cessation programs. ?? The National Suicide Prevention Hotline is available 21/09 if you or someone you know needs to find a reason to keep living. By calling 2-401-966-[employer] (7796) you'll be connected to a skilled, trained counselor at a crisis center in your area. INPATIENT DISCHARGE INSTRUCTIONS SIGNATURE PAGE FERMÍN AMATO Location:[facility] Registration Date and Time:05/31/2022 15:51 EDT Primary Care Physician: Prashanth MCRAE, Naseem, I FERMÍN AMATO, have received the above patient education materials/instructions and have verbalized understanding. If ambulance or transport services are being used I further acknowledge being given a choice of service. ?? If you need to contact me, please call me at this number: . Patient/Casino Banker Name: Patient/Casino Banker Signature: Relationship to Patient: Witness Name/Signature: Date: * Kiley Catherine LPN: PERFORM Event Display: Patient Education Leaflets Authored Date: [id number] What Is Syncope? ?? [id number] What Is Syncope? Syncope is also known as fainting or a blackout. It's an abrupt and short-term loss of consciousness and motor tone. It's often caused by a sudden drop in blood flow to the brain or a lack of oxygen to the brain. It's then followed by complete and often rapid spontaneous recovery. The heart pumps blood nonstop to the brain and the rest of the body. Understanding heart rate and blood pressure changes Your brain and body need a steady flow of oxygen-rich blood. Your heart rate and blood pressure change to keep that flow steady throughout all your activities. ??? The heart makes electrical signals that move through it on pathways. These signals set the heart rate. They also tell the heart when topump blood. ??? In response to your body???s needs, your brain may also trigger changes in your heart rate and blood pressure. Sensors in the body detect the amount of blood flow going to the brain and other parts of the body. If these sensors detect low blood flow, they signal the body to increasethe amount of fluid in the blood vessels??and increase the heart rate to provide more circulation. ??? The blood leaving the heart with each contraction supplies oxygen and nutrients as it flows in your brain. ?? Warning signs Syncope often happens suddenly. Warning signs include: ??? Dimmed, blackened, or tunnel vision ??? Lightheadedness ??? Sleepiness ??? Rapid heartbeat Some people may also feel nauseated or sweaty. But you may have no warning signs at all. After syncope, you get better quickly. But you may feel tired. Don't drive if you are having warning signs that you may faint. ?? Is it serious? Syncope is a common problem with many possible causes. Often these causes are not serious. For instance, syncope can be caused by standing for too long or sitting up too fast. In some cases, you may never faint again. But if you have syncope with a heart problem, it can be a warning sign of a more serious problem. For this reason, your healthcare provider may order several tests to look at heart function and rhythm. If you have had syncope, talk with your healthcare provider. In older adults, syncope may be a sign that a heart attack has happened. Don't delay seeking treatment. Even if the cause of syncope is not serious, there is a risk of injury from falling when you lose consciousness. When possible, finding a cause can reduce this risk. ?? Last Reviewed Date: 2021 ?? 6894-1762 [employer]. All rights reserved. This information is not intended as a substitute for professional medical care. Always follow your healthcare professional's instructions. ?? * Kiley Catherine LPN: PERFORM Event Display: Patient Education Leaflets Authored Date: [id number] What Is Syncope? ?? 73214 What Is Syncope? Syncope is also known as fainting or a blackout. It's an abrupt and short-term loss of consciousness and motor tone. It's often caused by a sudden drop in blood flow to the brain or a lack of oxygen to the brain. It's then followed by complete and often rapid spontaneous recovery. The heart pumps blood nonstop to the brain and the rest of the body. Understanding heart rate and blood pressure changes Your brain and body need a steady flow of oxygen-rich blood. Your heart rate and blood pressure change to keep that flow steady throughout all your activities. ??? The heart makes electrical signals that move through it on pathways. These signals set the heart rate. They also tell the heart when topump blood. ??? In response to your body???s needs, your brain may also trigger changes in your heart rate and blood pressure. Sensors in the body detect the amount of blood flow going to the brain and other parts of the body. If these sensors detect low blood flow, they signal the body to increasethe amount of fluid in the blood vessels??and increase the heart rate to provide more circulation. ??? The blood leaving the heart with each contraction supplies oxygen and nutrients as it flows in your brain. ?? Warning signs Syncope often happens suddenly. Warning signs include: ??? Dimmed, blackened, or tunnel vision ??? Lightheadedness ??? Sleepiness ??? Rapid heartbeat Some people may also feel nauseated or sweaty. But you may have no warning signs at all. After syncope, you get better quickly. But you may feel tired. Don't drive if you are having warning signs that you may faint. ?? Is it serious? Syncope is a common problem with many possible causes. Often these causes are not serious. For instance, syncope can be caused by standing for too long or sitting up too fast. In some cases, you may never faint again. But if you have syncope with a heart problem, it can be a warning sign of a more serious problem. For this reason, your healthcare provider may order several tests to look at heart function and rhythm. If you have had syncope, talk with your healthcare provider. In older adults, syncope may be a sign that a heart attack has happened. Don't delay seeking treatment. Even if the cause of syncope is not serious, there is a risk of injury from falling when you lose consciousness. When possible, finding a cause can reduce this risk. ?? Last Reviewed Date: 2021 ?? [employer]. All rights reserved. This information is not intended as a substitute for professional medical care. Always follow your healthcare professional's instructions. ?? * [employer] , CIS S: TRANSCRIOlivier Barber MD: VERIFY Event Display: Result: Authored Date: [id number] Chest 2 Views Frontal and Lat Hx of Present Illness: Pt here for multiple falls today due to weakness and pain to bilateral lowerextremities. Pt states recently treated and seen for rhabdo. Pt denies blood thinners, denies hitting head denies loc.; Reason: Shortness of Breath; Clinical Question(s): CHF COMPARISON: 05/23/2022 FINDINGS: LINES AND TUBES: None. LUNGS AND PLEURA: Clear lungs. Normal pulmonary vascularity. No pleural effusion. No pneumothorax. HEART, MEDIASTINUM AND TINY: Unchanged. BONES AND SOFT TISSUES: No acute abnormality. IMPRESSION: No acute abnormality. WSN: [id number] Ordering Physician: Heather Ellis Dictated By: Olivier Hager MD Dictated Date/Time: 05/31/22 5:40 pm Reviewed By: Olivier Hager MD Signed By: Olivier Hager MD Signed Date/Time: 05/31/22 5:40 pm Transcribed By: LISA Transcribed Date/Time: 05/31/22 5:38 pm Hospital Progress note * Vikki Duong RN: PERFORM, SIGN, VERIFY Event Display: Progress Note Hospital Authored Date: [id number] Patient: FERMÍN AMATO Age: 67 years Sex: Male : 1955 Associated Diagnoses: None Author: Vikki Duong RN Findings Narrative/Incidental Pt arrived to D3B from ED a+ox4. Ambulated to bed from stretcher. Pt reports generalized lower extremity weakness secondary to a new diagnosis, unsure of the name of the diagnosis. Pt reports generalized body pain. Denies any further neurological deficits. NSR with IVCD on telemetry.Oriented to surroundings, advised use of call wyatt for any needed assistance. See biophysical assessment for full assessment. . CT Cervical spine WO contrast * [employer] , CIS S: TRANSCRIClara Roy MD: VERIFY Event Display: Result: Authored Date: [id number] INDICATION: Hx of Present Illness: Pt here for multiple falls today due to weakness and pain to bilateral lower extremities. Pt states recently treated and seen for rhabdo. Pt denies blood thinners, denies hitting head denies loc.; Reason: Trauma; Clinical Question(s): Hematoma CLINICAL QUESTION: Hematoma TECHNIQUE: Noncontrast head and cervical spine CT using axial technique and reconstructed in axial,sagittal, and coronal plane. Age-based protocol was used to optimize exposure parameters. CTDIvol Body: 7.50 mGy, DLP Body: 190 mGy*cm. CTDIvol Head: 41.80 mGy, DLP Head: 671 mGy*cm. COMPARISON: 05/13/2022 FINDINGS: BRAIN: No parenchymal hemorrhage, midline shift or mass effect. Glaser-white matter differentiation is well preserved. No acute infarct. Mild prominence of the ventricles and sulci consistent with cortical and cerebellar parenchymal volume loss. No white matter abnormalities. CALVARIUM, SKULL BASE and SINUSES: Normal. C-SPINE: The lung apices are clear. There is no acute fracture or subluxation. The prevertebral soft tissue is unremarkable. Moderate degenerative change at C3/C4. IMPRESSION: No acute finding. WSN: [id number] Ordering Physician: Heather Ellis Dictated By: Clara Norton MD Dictated Date/Time: 05/31/22 5:44 pm Reviewed By: Clara Norton MD Signed By: Clara Norton MD Signed Date/Time: 05/31/22 5:44 pm Transcribed By: LISA Transcribed Date/Time: 05/31/22 5:[address] Head WO contrast * [employer] , CIS S: TRANSCRIBE Clara Norton MD: VERIFY Event Display: Result: Authored Date: [id number] INDICATION: Hx of Present Illness: Pt here for multiple falls today due to weakness and pain to bilateral lower extremities. Pt states recently treated and seen for rhabdo. Pt denies blood thinners, denies hitting head denies loc.; Reason: Trauma; Clinical Question(s): Hematoma CLINICAL QUESTION: Hematoma TECHNIQUE: Noncontrast head and cervical spine CT using axial technique and reconstructed in axial,sagittal, and coronal plane. Age-based protocol was used to optimize exposure parameters. CTDIvol Body: 7.50 mGy, DLP Body: 190 mGy*cm. CTDIvol Head: 41.80 mGy, DLP Head: 671 mGy*cm. COMPARISON: 05/13/2022 FINDINGS: BRAIN: No parenchymal hemorrhage, midline shift or mass effect. Glaser-white matter differentiation is well preserved. No acute infarct. Mild prominence of the ventricles and sulci consistent with cortical and cerebellar parenchymal volume loss. No white matter abnormalities. CALVARIUM, SKULL BASE and SINUSES: Normal. C-SPINE: The lung apices are clear. There is no acute fracture or subluxation. The prevertebral soft tissue is unremarkable. Moderate degenerative change at C3/C4. IMPRESSION: No acute finding. WSN: [id number] Ordering Physician: Heather Ellis Dictated By: Clara Norton MD Dictated Date/Time: 05/31/22 5:44 pm Reviewed By: Clara Norton MD Signed By: Clara Norton MD Signed Date/Time: 05/31/22 5:44 pm Transcribed By: LISA Transcribed Date/Time: 05/31/22 5:39 pm Patient Care team information Care Team Personnel Name: Rosmery Bonds RN Position: S RN Member Role: Primary Care Nurse Name: Jolynn Bhatti RN Position: [facility] RN Member Role: Primary Care Nurse Name: Petty Hines RN Position: S RN Member Role: Primary Care Nurse Name: Naseem Alford MD Position: [facility] Outreach Member Role: PCP Address: Address: [address] [place] [address] Prashanth MCRAE [address] Name: Heather Garrett RN Position: [facility] RN Member Role: Primary Care Nurse Name: Tila Stock RN Position: S RN Member Role: Primary Care Nurse Name: Roberta Noel RN Position: [facility] RN Member Role: Primary Care Nurse Name: Mercedez Zuniga RN Position: S RN Member Role: Primary Care Nurse Name: Franco Sanchez RN Position: S RN Member Role: Primary Care Nurse Name: Nathaly Zimmer RN Position: [facility] RN Member Role: Primary Care Nurse Name: Natalie Carmichael RN Position: S RN Member Role: Primary Care Nurse Name: Romina Delarosa RN Position: S RN Member Role: Primary Care Nurse Name: Georgette Mesa RN Position: S RN Member Role: Primary Care Nurse Name: Beti Sparks RN Position: S RN Member Role: Primary Care Nurse Name: Marge Bell RN Position: S RN Member Role: Primary Care Nurse Name: Georgette Alford RN Position: S RN Member Role: Primary Care Nurse Name: Kiley Catherine LPN Position: [facility] RN Member Role: Primary Care Nurse Name: Bryan PRASAD Attending Position: [facility] ED Medicine MD Name: Heather Ellis DO Position: [facility] Resident Member Role: ED Resident Address: Address: [address] [place] [address] Emergency [place], [place] [address] Name: Malou Bragg Position: [facility] ED TA [facility] Member Role: Population Health Coach Name: Jordyn Wood RN Position: [facility] ED RN W/OE and Tasks Member Role: Patient Care Provider Care Team Related Persons Name: VAISHALI LAWSON Address: home [address] [place] [address] Name: JALEESA CHAN Address: home [address] [place] [address] Name: SIERRA JANSEN Address: [place] [address]
--- OUTSIDE RECORDS SUMMARY | 2022-08-13 11:26 | XMS_ITS | Continuity of Care Document ---
Author Name Unknown Organization [facility] ter Address [address] [place] [id number]- Care Team Providers Care Water Meter Installer Name Role Phone Naseem Alford MD Primary Care Physician [place] [facility] [place](s): 05/27/21 - 05/27/[address] [address]- Encounter Diagnosis Hernia, inguinal(Final) - 05/27/21 Discharge Disposition: A-D/C Home Attending Physician: Marge Bergman MD Admitting Physician: Marge Bergman MD Referring Physician: Not on Staff, Referring [...] 05/27/21 14:45:00 EDT, Route to Pharmacy Electronically, [facility], Partial fill upon patient request if the pres... Start Date: 05/27/21 Status: Ordered FENTanyl Inj 50 mcg, Injection, IV Push Slowly, 05/27/21 12:40:00 EDT, Stop date 05/27/21 12:40:00 EDT Start Date: 05/27/21 Stop Date: 05/27/21 Status: Completed Imdur 30 mg oral tablet, [...] 06/01/21 13:19:00 EDT, 05/25/21 13:19:00 EDT, Ointment, [facility], Partial fill upon patient request if the prescription is for a schedule II opioid drug., 1... Start Date: 05/25/21 Stop Date: 06/01/21 Status: Ordered losartan 25 mg oral tablet 25 mg, 1, tablet, By Mouth, Daily, # 30 tablet, Refills 0, Tot. Refills 0, Maintenance, 02/26/21 16:36:00 EST, Route to Pharmacy Electronically, [facility], Partial fill upon patient request if the prescription is for a schedule II opioi... Start Date: 02/26/21 Status: Ordered metoprolol 50 mg oral tablet, extended release 75 mg, 1.5, tablet, By Mouth, 2 times a day, # 90 tablet, Refills 0, Tot. Refills 0, Maintenance, 01/25/21 10:53:00 EST, Route to Pharmacy Electronically, [facility], Partial fill upon patient request [...] Date: 03/14/21 Stop Date: 04/13/21 Status: Ordered polyethylene glycol 3350 oral powder for reconstitution = 17 Gm, By Mouth, Daily, dissolve in water before taking, # 527 Gm, 0 Refills, Acute 05/28/21 14:47:00 EDT, 05/27/21 14:46:00 EDT, REC Powder, [facility], Partial fill upon patient request if the prescription is for a schedule II opioid... Start Date: 05/27/21 Stop Date: 05/28/21 Status: Ordered ticagrelor 90 mg oral tablet 1 tablet = 90 mg, By Mouth, 2 times a day, # 60 tablet, 0 Refills, Maintenance, 01/25/21 10:54:00 EST, Tablet, [facility], Partial fill upon patient request [...] oldest [Reference Range]: 1 2 3 Height 180 cm (05/27/21 11:17 AM) Weight 83 kg (05/27/21 11:17 AM) Oxygen Saturation [94-100 %] 100 % (05/27/21 2:09 PM) 100 % (05/27/21 12:55 PM) 100 % (05/27/21 11:10 AM) Pulse Rate [55-90 bpm] 77 bpm (05/27/21 2:09 PM) 60 bpm (05/27/21 12:55 PM) 62 bpm (05/27/21 11:10 AM) Blood Pressure [90-138/55-84 mm Hg] 143/77mm Hg *H* (05/27/21 2:09 PM) 137/89mm Hg (05/27/21 12:55 PM) 148/80mm Hg *H* (05/27/21 11:10 AM) Respiratory Rate [16-30 br/min] 20 br/min (05/27/21 2:09 PM) 20 br/min (05/27/21 1:51 PM) 16 br/min (05/27/21 12:55 PM) Temperature [96.8-100.4 DegF] 97.2 DegF (05/27/21 11:10 AM) Liters per Minute 0 L/min (05/27/21 11:10 AM) Mode of Delivery (Oxygen) Room air (05/27/21 2:09 PM) Room air (05/27/21 12:55 PM) Room air (05/27/21 11:10 AM) Temperature Route Oral (05/27/21 11:10 AM) Dry Weight 83 kg (05/27/21 11:17 AM) Dry Weight Obtained Via Patient/family s tated (05/27/21 11:17 AM) Social History Social History Type Response Smoking Status Never (less than 100 in lifetime) entered on: 10/21/19 Sex
--- OUTSIDE RECORDS SUMMARY | 2022-08-13 11:26 | XMS_ITS | Continuity of Care Document ---
Author Name Unknown Organization [facility] ter Address [address] [place] [id number]- Care Team Providers Care Distribution Engineer Name Role Phone Naseem Alford MD Primary Care Physician Encounter [facility] [place] Date(s): 05/08/21 - 05/09/[address] [address]- Discharge Disposition: A-D/C Home Attending Physician: Laurent MCRAE, Luciana Beckett Admitting Physician: Jay Jay Perez MD Referring [...] mL, 0 Refills, Maintenance,05/07/21 10:56:00 EST, [id number], Partial fill upon patient request if the [...] 02/26/21 16:36:00 EST, Route to Pharmacy Electronically, [facility], Partial fill upon patient request if the prescription is for a schedule II opioi... Start Date: 02/26/21 Status: Ordered losartan 25 mg oral tablet 25 mg, Tablet, By Mouth, 05/09/21 9:00:00 EST Start Date: 05/09/21 Stop Date: 05/09/21 Status: Completed metoprolol 50 mg oral tablet, extended release 75 mg, XL Tablet, By Mouth, 05/09/21 9:00:00 EST Start Date: 05/09/21 Stop Date: 05/09/21 Status: Completed metoprolol 50 mg oral tablet, extended release 75 mg, 1.5, tablet, By Mouth, 2 times a day, # 90 tablet, Refills 0, Tot. Refills 0, Maintenance, 01/25/21 10:53:00 EST, Route to Pharmacy Electronically, [facility], Partial [...] 0 Refills, Maintenance, 01/25/21 10:54:00 EST, Tablet, [facility], Partial fill upon patient request if the prescription is for aschedule II opioid drug., 177.8, cm, 01/25/21 8:37:... Start Date: 01/25/21 Status: Ordered Problem List Condition Effective Dates Status Health Status Inform ant Chest pain(Confirmed) Active Inguinal hernia of left side without obstruction or gangrene(Confirmed) Active Status post cardiac catheterization(Confirmed) Active Episode of syncope(Confirmed) Active Procedures Procedure Date Related Diagnosis Body Site Status Esophagogastroduodenoscopy 05/08/21 Completed Results Radiology Reports * Exam Date Time Procedure Performing Provider Status 05/08/21 5:56 AM Chest Portable Juanita Biswas; Auth ( Verified) Notes: (Chest Portable) Reason For Exam: Chest Pain;Other: RESULT: Chest Portable Chest Portable Hx of Present Illness: Chest Pain; Reason: Other:; Chest Pain; Clinical Question(s): CHF COMPARISON: May 06 FINDINGS: Small area of minimal increased markings right lower lung field, similar to prior thus likely scarring. Lungs otherwise clear, no infiltrates. CP angles sharp. Cardiac silhouette, vascularity, hilar and mediastinal regions unremarkable. Bony thorax and surrounding soft tissues unremarkable. IMPRESSION: Negative chest. WSN: [id number] Ordering Physician: Magnolia Zambrano Dictated By: Daniel [facility] MD Dictated Date/Time: 05/08/21 9:01 am Reviewed By: Daniel [facility] MD Signed By: Daniel [facility] MD Signed Date/Time: 05/08/21 9:01 am Transcribed By: LISA Transcribed Date/Time: 05/08/21 8:58 am Vital Signs Most recent to oldest [Reference Range]: 1 2 3 Height 178 cm (05/09/21 9:48 AM) 178 cm (05/09/21 4:36 AM) 178 cm (05/08/21 10:21 PM) Weight 82.5 kg (05/08/21 5:31 PM) Oxygen Saturation [94-100 %] 100 % (3/11/22 9:48 AM) 100 % (05/09/21 4:36 AM) 100 % (05/08/21 10:21 PM) Pulse Rate [55-90 bpm] 66 bpm (05/09/21 9:48 AM) 64 bpm (05/09/21 8:16 AM) 64 bpm (05/09/21 4:36 AM) Body Mass Index [18.5-24.99] 26.04 *H* (05/08/21 5:31 PM) Blood Pressure [90-138/55-84 mm Hg] 156/82mm Hg *H* (05/09/21 9:48 AM) 138/71mm Hg (05/09/21 8:16 AM) 138/71mm Hg (05/09/21 8:16 AM) Respiratory Rate [16-30 br/min] 18 br/min (05/09/21 10:36 AM) 20 br/min (05/09/21 9:48 AM) 21 br/min (05/09/21 4:36 AM) Temperature [96.8-100.4 DegF] 97.4 DegF (05/09/21 9:48 AM) 97.6 DegF (05/09/21 4:36 AM) 97.8 DegF (05/08/21 10:21 PM) Mode of Delivery (Oxygen) Room air (05/09/21 9:48 AM) Room air (05/09/21 4:36 AM) Room air (05/08/21 10:21 PM) Blood pressure sites Arm, left (05/09/21 9:48 AM) Arm, left (05/09/21 4:36 AM) Arm, right (05/08/21 10:21 PM) Temperature Route Oral (05/09/21 9:48 AM) Oral (05/09/21 4:36 AM) Oral (05/08/21 10:21 PM) Dry Weight 82.5 kg (05/08/21 5:31 PM) Social History Social History Type Response Smoking Status Never (less than 100 in lifetime) entered on: 10/21/19 Sex
--- OUTSIDE RECORDS SUMMARY | 2022-08-13 11:26 | XMS_ITS | Continuity of Care Document ---
Author Name Unknown Organization [facility] Address Unknown Care Team Providers Care Business Solutions Director Name Role Phone Naseem Alford MD Primary Care Physician [place] [facility] [place] 06/05/21 - 07/05/21 [facility] Allergies, Adverse Reactions, Alerts Substance [...] 1,200 mL, 0 Refills, Maintenance,05/07/21 10:56:00 EST, [id number], Partial fill upon patient request if the prescription isfor a schedule II opioid drug., 177.8, cm, 05/07/21... Start Date: 05/07/21 Status: Ordered Colace sodium 100 mg oral capsule 100 mg, 1, capsule, By Mouth, 2 times a day, PRN, # 100 capsule, Refills 0, Tot. Refills 0, Maintenance, for constipation, 05/27/21 14:45:00 EDT, Route to Pharmacy Electronically, [facility], Partial fill upon [...] 02/26/21 16:36:00 EST, Route to Pharmacy Electronically, [facility], Partial fill upon patient request if the prescription is for a schedule II opioi... Start Date: 02/26/21 Status: Ordered metoprolol 50 mg oral tablet, extended release 75 mg, 1.5, tablet, By Mouth, 2 times a day, # 90 tablet, Refills 0, Tot. Refills 0, Maintenance, 01/25/21 10:53:00 EST, Route to Pharmacy Electronically, [facility], Partial fill upon [...] 0 Refills, Maintenance, 01/25/21 10:54:00 EST, Tablet, [facility], Partial fill upon [...] Equipment Implanted Date:06/24/21Target Site:Groin Left Description Quantity [employer] Model MESH 3D MAX MID X-LG LT 5X7I N - BARD ([id number]) 1 Bard Unknown ADALI:{01}[id number] Assigning Author ity:FDA Implanted Date:06/24/21Target Site:Groin Right Description Quantity MRI [employer] Model MESH 3D MAX MID LG RT 4X6IN - BARD ([id number]) 1 Bard Unknown ADALI:{01}[id number]{10}HUFY [id number] Assigning Authority:FDA
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
--- OUTSIDE RECORDS SUMMARY | 2022-08-13 11:26 | XMS_ITS | Continuity of Care Document ---
Author Name Unknown Organization [facility] ter Address [address] [place] [id number]- Care Team Providers Care Entry Level Marketing Representative Name Role Phone Naseem Alford MD Primary Care Physician Encounter [facility] [place] Date(s): 06/24/21 - 06/25/[address] [address] Discharge Disposition: A-D/C Home Attending Physician: Charan Roberts MD Admitting Physician: Charan Roberts MD Referring Physician: Charan Roberts MD Allergies, Adverse Reactions, Alerts Substance Reaction Severity Status MiraLax Itching of skin Active Medications Acetaminophen Tablet 650 mg, Tablet, By Mouth, 06/25/21 9:00:00 EDT Start Date: 06/25/21 Stop Date: 06/25/21 Status: Completed allopurinol 100 mg oral tablet [...] 1,200 mL, 0 Refills, Maintenance,05/07/21 10:56:00 EST, [facility]/pharmacy #[id number], Partial fill upon patient request if the prescription isfor a schedule II opioid drug., 177.8, cm, 05/07/21... Start Date: 05/07/21 Status: Ordered Colace sodium 100 mg oral capsule 100 mg, 1, capsule, By Mouth, 2 times a day, PRN, # 100 capsule, Refills 0, Tot. Refills 0, Maintenance, for constipation, 05/27/21 14:45:00 EDT, Route to Pharmacy Electronically, [facility], Partial fill upon [...] 16:36:00 EST, Route to Pharmacy Electronically, [facility], Partial fill upon patient request if the prescription is for a schedule II opioi... Start Date: 02/26/21 Status: Ordered metoprolol 25 mg oral tablet, extended release 75 mg, XL Tablet, By Mouth, 06/25/21 9:00:00 EDT Start Date: 06/25/21 Stop Date: 06/25/21 Status: Completed metoprolol 50 mg oral tablet, extended release 75 mg, 1.5, tablet, By Mouth, 2 times a day, # 90 tablet, Refills 0, Tot. Refills 0, Maintenance, 01/25/21 10:53:00 EST, Route to Pharmacy Electronically, [facility], Partial fill upon patient [...] 0 Refills, Maintenance, 01/25/21 10:54:00 EST, Tablet, [facility], Partial fill upon [...] oldest [Reference Range]: 1 2 3 Height 177.80 cm (06/25/21 7:38 AM) 177.80 cm (06/25/21 3:59 AM) 177.80 cm (06/24/21 11:00 PM) Weight 81 kg (06/24/21 11:00 PM) 81.82 kg (06/24/21 4:02 PM) 81.82 kg (06/20/21 3:44 PM) Oxygen Saturation [94-100 %] 100 % (06/25/21 7:38 AM) 100 % (06/25/21 3:59 AM) 99 % (06/24/21 11:00 PM) Pulse Rate [55-90 bpm] 57 bpm (06/25/21 7:38 AM) 56 bpm (06/25/21 7:32 AM) 64 bpm (06/25/21 3:59 AM) Body Mass Index [18.5-24.99] 25.88 *H* (06/24/21 4:02 PM) 25.88 *H* (06/20/21 3:44 PM) Blood Pressure [90-138/55-84 mm Hg] 167/61mm Hg *H* (06/25/21 7:38 AM) 167/61mm Hg *H* (06/25/21 7:32 AM) 134/60mm Hg (06/25/21 3:59 AM) Respiratory Rate [16-30 br/min] 16 br/min (06/25/21 9:07 AM) 18 br/min (06/25/21 8:12 AM) 18 br/min (06/25/21 7:38 AM) Temperature [96.8-100.4 DegF] 97.9 DegF (06/25/21 7:38 AM) 97.8 DegF (06/25/21 3:59 AM) 98.3 DegF (06/24/21 11:00 PM) Liters per Minute 2 L/min (06/24/21 8:45 PM) 6 L/min (06/24/21 8:30 PM) Mode of Delivery (Oxygen) Room air (06/25/21 7:38 AM) Room air (06/25/21 3:59 AM) Room air (06/24/21 11:00 PM) Blood pressure sites Arm, right (06/25/21 7:38 AM) Arm, right (06/25/21 3:59 AM) Arm, left (06/24/21 11:00 PM) Temperature Route Oral (06/25/21 7:38 AM) Oral (06/25/21 3:59 AM) Oral (06/24/21 11:00 PM) Dry Weight 81.2 kg (06/24/21 4:02 PM) 81.82 kg (06/20/21 3:44 PM) Weight Obtained Via Bed scale (06/24/21 11:00 PM) Patient/family stated (06/20/21 3:44 PM) Dry Weight Obtained Via Standing scale (06/24/21 4:02 PM) Patient/family stated (06/20/21 3:44 PM) Social History Social History Type Response Smoking Status Never (less than 100 in lifetime) entered on: 10/21/19 Sex Medical Equipment Implanted Date:06/24/21Target Site:Groin Left Description Quantity MRI Storymix Media Model MESH 3D MAX MID X-LG LT [id number] N - BARD ([id number]) 1 Bard Unknown ADALI:{01}[id number] Assigning Author ity:FDA Implanted Date:06/24/21Target Site:Groin Right Description Quantity MRI Storymix Media Model MESH 3D MAX MID LG RT 4X6IN - BARD ([id number]) 1 Bard Unknown ADALI:{01}[id number]{17}[id number]{10}HUFY [id number] Assigning Authority:FDA
--- OUTSIDE RECORDS SUMMARY | 2022-08-13 11:26 | XMS_ITS | Continuity of Care Document ---
Author Name Unknown Organization [facility] ter Address [address] [place] [id number]- Care Team Providers Care Foxing Closer Name Role Phone Naseem Alford MD Primary Care Physician Encounter [facility] [place] Date(s): 05/02/21 - 05/02/[address] [address]- Discharge Disposition: A-D/C Home Attending Physician: Christian Moe MD Admitting Physician: Christian Moe MD Referring Physician: Not on Staff, Referring [...] 02/26/21 10:51:00 EST, Route to Pharmacy Electronically, [facility], Partial fill upon [...] 02/26/21 16:36:00 EST, Route to Pharmacy Electronically, [facility], Partial fill upon patient request if the prescription is for a schedule II opioi... Start Date: 02/26/21 Status: Ordered metoprolol 50 mg oral tablet, extended release 75 mg, 1.5, tablet, By Mouth, 2 times a day, # 90 tablet, Refills 0, Tot. Refills 0, Maintenance, 01/25/21 10:53:00 EST, Route to Pharmacy Electronically, [facility], [...] 0 Refills, Maintenance, 01/25/21 10:54:00 EST, Tablet, [facility], Partial fill upon [...] Exam Date Time Procedure Performing Provider Status 05/02/21 2:04 PM Chest 2 Views Frontal and Lat Mandy Rivas; Auth (Verified) Notes: (Chest 2 Views Frontal and Lat) Reason For Exam: chest pain;Other: RESULT: Chest 2 Views Frontal and Lat Chest 2 Views Frontal and Lat Hx of Present Illness: chest tightness allergic rxn?; Reason: Other:; chest pain; Clinical Question(s): Other:; PTX, mediastinal widening, pleural effusion COMPARISON: 04/30/2021. FINDINGS: LINES AND TUBES: None. LUNGS AND PLEURA: Clear lungs. Normal pulmonary vascularity. No pleural effusion. No pneumothorax. HEART, MEDIASTINUM AND TINY: Heart is normal in size. Normal upper mediastinal and hilar contour. BONES AND SOFT TISSUES: No acute abnormality. Mild scoliosis midthoracic spine convex to right. IMPRESSION: No acute abnormality. No interval change. WSN: [id number] Ordering Physician: Christian Moe Dictated By: Eric Muhammad MD, V Dictated Date/Time: 05/02/21 2:13 pm Reviewed By: Eric Muhammad MD, V Signed By: Eric Muhammad MD, V Signed Date/Time: 05/02/21 2:13 pm Transcribed By: LISA Transcribed Date/Time: 05/02/21 2:12 pm Vital Signs Most recent to oldest [Reference Range]: 1 2 3 Oxygen Saturation [94-100 %] 100 % (05/02/21 5:51 PM) 99 % (05/02/21 2:20 PM) 100 % (05/02/21 1:20 PM) Pulse Rate [55-90 bpm] 68 bpm (05/02/21 5:51 PM) 67 bpm (05/02/21 2:20 PM) 66 bpm (05/02/21 1:39 PM) Blood Pressure [90-138/55-84 mm Hg] 160/79mm Hg *H* (05/02/21 5:51 PM) 137/67mm Hg (05/02/21 2:20 PM) 142/59mm Hg *H* (05/02/21 1:20 PM) Respiratory Rate [16-30 br/min] 18 br/min (05/02/21 5:51 PM) 18 br/min (05/02/21 2:20 PM) 22 br/min (05/02/21 1:20 PM) Temperature [96.8-100.4 DegF] 97.8 DegF (05/02/21 5:51 PM) 97.8 DegF (05/02/21 1:20 PM) Mode of Delivery (Oxygen) Room air (05/02/21 5:51 PM) Room air (05/02/21 2:20 PM) Room air (05/02/21 1:20 PM) Temperature Route Oral (05/02/21 5:51 PM) Oral (05/02/21 1:20 PM) Social History Social History Type Response Smoking Status Never (less than 100 in lifetime) entered on: 10/21/19 Sex
--- NOTE | 2022-08-13 11:44 | ECG_ITS ---
Test Reason : CHEST PAIN Blood Pressure : / mmHG Vent. Rate : 063 BPM Atrial Rate : 063 BPM P-R Int : 164 ms QRS Dur : 128 ms QT Int : 460 ms P-R-T Axes : 042 001 094 degrees QTc Int : 470 ms Sinus rhythm with Premature atrial complexes Left bundle branch block Abnormal ECG When compared with ECG of 06-AUG-2022 05:07, Premature atrial complexes are now Present Referred By: Gómez Devine Electronically Signed By:AGUILAR REYES MD
[2022-08-13 12:15] LABS: MANUAL DIFF FLAG NO
[2022-08-13 12:17] LABS: Basophils Absolute Auto 0.1 X10*3/uL (0.0-0.2); Basophils Percent Auto 1.1 % (0-2); Eosinophils Absolute Auto 0.3 X10*3/uL (0.0-0.4); Eosinophils Percent Auto 6.2 % (0-4); Hematocrit 31.7 % (42.0-52.0); Hemoglobin 10.4 g/dl (14.0-18.0); Imm Gran Abs Auto 0.01 X10*3/uL (0.00-0.03); Imm Gran Pct Auto 0.2 % (0.0-0.4); Lymphocytes Absolute Auto 1.1 X10*3/uL (1.2-4.9); Lymphocytes Percent Auto 24.2 % (20-40); Mean Corpuscular HGB Conc 32.8 g/dl (31.0-36.0); Mean Corpuscular Hemoglobin 31.8 pg (27.0-33.0); Mean Corpuscular Volume 96.9 fL (80.0-98.0); Mean Platelet Volume 8.5 fL (9.4-12.4); Monocytes Absolute Auto 0.5 X10*3/uL (0.1-1.2); Monocytes Percent Auto 10.9 % (2-11); Neutrophils Absolute Auto 2.7 x10*3/uL (2.0-8.3); Neutrophils Percent Auto 57.4 % (45-73); Platelet Count 230 X10*3/uL (160-400); Red Blood Count 3.27 X10*6/uL (4.60-5.80); Red Cell Distribution Width 13.9 % (11.0-16.0); White Blood Count 4.7 X10*3/uL (4.8-10.8)
[2022-08-13 12:45] LABS: Alanine Aminotransferase 16 U/L (0-40); Albumin Level 3.6 g/dL (3.5-5.0); Alkaline Phosphatase 127 U/L (39-117); Anion Gap 12 (12-20); Aspartate Amino Transferase 28 U/L (5-37); Bilirubin Total 0.5 mg/dL (0.0-1.0); Blood Urea Nitrogen 23 mg/dL (9-16); Calcium 9.1 mg/dL (8.4-10.2); Carbon Dioxide 25 mmol/L (22-29); Chloride 108 mmol/L (96-108); Creatinine Clr Calc Pharmacy 84.8; Estimated Glomerular Filt Rate > 60; Glucose Random 95 mg/dL (60-115); Potassium 4.4 mmol/L (3.3-5.1); Sodium 141 mmol/L (135-145)
[2022-08-13 12:48] LABS: Troponin-I High Sensitivity 3.1 ng/L (<3.5-35.0)
[2022-08-13] MEDS: 0.9 % Sodium Chloride 1,000 ML 999 ML IV ×2 (13:02→14:45)
--- NOTE | 2022-08-13 13:08 | ED.GENADULT ---
HPI - General Adult General Chief complaint: Syncope Stated complaint: fall,+loc w/head lac per ems Time Seen by Provider: 08/13/22 11:38 Source: patient and EMS Mode of arrival: EMS Limitations: no limitations History of Present Illness HPI narrative: 67-year-old male presents after a fall down the stairs. Patient reports 8 episodes of syncope in the last 2 weeks. He reports having been on the stairs falling down approximately 8 steps. He denies chest pain, shortness breath, lightheadedness. Patient reports frequent episodes of this. He is unclear what brings it on. Describes the symptoms as severe. Again he loses consciousness on a regular basis. He denies any loss of bowel or bladder control, tongue biting. Denies any postictal confusion. He has been evaluated for this previously. Etiology is yet to be determined. Patient did hit his head. He denies any significant headache. Does complain of left shoulder pain. The pain is worse with movement. The pain does not radiate. There is no numbness or tingling. Related Data Home Medications Medication Instructions Recorded Confirmed allopurinol 100 mg tablet 100 mg PO DAILY@1700 08/07/21 07/31/22 isosorbide mononitrate 30 mg 30 mg PO DAILY@0800 08/07/21 07/31/22 tablet,extended release 24 hr losartan 25 mg tablet 25 mg PO DAILY@0800 08/07/21 07/31/22 metoprolol succinate 50 mg 75 mg PO DAILY@0800 08/07/21 07/31/22 tablet,extended release 24 hr acetaminophen 500 mg tablet 1,000 mg PO TID PRN pain 02/16/22 07/31/22 fluticasone propionate 50 1 spray intranasal DAILY PRN 05/16/22 07/31/22 mcg/actuation nasal Allergy Symptoms spray,suspension aspirin 81 mg tablet,delayed 81 mg PO DAILY 06/04/22 07/31/22 release atorvastatin 80 mg tablet 80 mg PO DAILY 06/04/22 07/31/22 omeprazole 40 mg capsule,delayed 40 mg PO BID 07/23/22 07/31/22 release sucralfate 100 mg/mL oral 10 ml PO QIDACHS 07/23/22 07/31/22 suspension (Carafate) Allergies Allergy/AdvReac Type Severity Reaction Status Date / Time polyethylene glycol Allergy Itching Verified 07/23/22 16:49 Iodinated Contrast Media AdvReac Severe PARALYSIS/N Verified 07/23/22 16:49 [CONTRAST, IV] UMBNESS Review of Systems Review of Systems: CONSTITUTIONAL: Denies weight loss, fever and chills. HEENT: Denies changes in vision and hearing. RESPIRATORY: Denies SOB and cough. CV: Denies palpitations no CP. GI: Denies abdominal pain, nausea, vomiting and diarrhea. : Denies dysuria and urinary frequency. MSK: Denies myalgia and positive joint pain. SKIN: Denies rash and pruritus. NEUROLOGICAL: Denies headache and positive syncope. PSYCHIATRIC: Denies recent changes in mood. Denies anxiety and depression. All other ROS are negative unless in HPI PMFSH Past Medical History Medical History Airway polyps Atypical chest pain Chest pain Coronary artery disease Gout Hypertension Incarcerated left inguinal hernia Ischemic heart disease due to coronary artery obstruction Left bundle branch block Left bundle branch block NICM (nonischemic cardiomyopathy) No known health problems Peptic ulcer disease Syncope Surgical History H/O heart artery stent History of partial gastrectomy Family History Family History Father Myocardial infarction Social History Social History Household Members: Other Household Members Other:: with friends, staying with friends Housing: Other Housing Other:: staying with a friend and financial assistance to find a hotel room Do you presently have visiting nurse or other home services: No Alcohol intake: never Patient Tobacco Use Status: Never used Tobacco Second Hand Smoke Exposure: Yes (friends he stays with smoke outside) Advance Directives: Yes Advance Directives on File: Yes Advance Directives Date on File: 05/20/22 service: No Current occupational status: unemployed Physical Exam ED Vital Signs: Vital Signs - 24 hr 08/13/22 11:01 08/13/22 14:31 Temperature 97.5 F 97.7 F Pulse Rate 63 63 Respiratory Rate 16 18 Blood Pressure 144/76 H 133/64 Pulse Oximetry 100 99 Oxygen Delivery Method Room Air Room Air BMI result Body Mass Index 25.8 GEN: Well developed, no acute distress, alert, oriented HEENT: Normocephalic, , normal external ears, nose appears normal, no oropharyngeal edema or exudates occipital scalp laceration Eyes: Normal to appearance Neck: Midline tenderness, no deformity cervical collar Respiratory: Talks in complete sentences, no respiratory distress, clear to auscultation bilaterally Cardiovascular: Regular rate and rhythm, no murmurs rubs or gallops Abdomen: Soft, nontender, nondistended, no guarding, no rebound Back: No CVA tenderness Extremities: No clubbing cyanosis or edema Neurologic: No focal neurologic deficits, cranial nerves 2-12 intact, strength is 5/5 bilaterally Skin: No rash Course Reevaluation(s) Reevaluation #1: Cervical collar removed Time: 14:49 Reevaluation #2: He reviewed patient's most recent discharge summary and cardiology consultation. Patient has recurrent syncopal episodes have no clear cardiac etiology. He has been monitored and followed [facility]. I do not see any benefit for patient being monitor in the hospital for a workup that has already been completed. I would merely recommend outpatient Follow-up. Incidentally patient has ureterolithiasis. Large. Would refer to urology. Reevaluation #3: At this time, the workup is complete. Patient can be discharged with follow-up with Urology. Unfortunately, patient has no options as far as shoulders that he will be accepted at. I will discharge him at this time. Medications Administered Discontinued Medications Generic Name Dose Route Start Last Admin Trade Name Freq PRN Reason Stop Dose Admin Sodium Chloride 1,000 mls @ 999 mls/hr 08/13/22 11:45 08/13/22 13:02 Ns IV 08/13/22 12:45 999 mls/hr .Q1H1M BRITTANY Administration Sodium Chloride 1,000 mls @ 999 mls/hr 08/13/22 13:30 08/13/22 14:45 Ns IV 08/13/22 14:30 999 mls/hr .Q1H1M BRITTANY Administration Procedures Laceration Laceration 1: Site: scalp (Occipital) Size (cm): 1 Description: linear Depth: simple, single layer Pre-repair: wound explored and irrigated extensively Skin layer closed with: other (staple) Number of sutures: 1 Medical Decision Making Medical Decision Making MDM Narrative: 67-year-old male with a past medical history of coronary artery disease, cardiomyopathy, hypertension, gout, peptic ulcer disease, left bundle-branch block presents after a fall and striking his head. Patient reportedly fell down 10 steps. He had loss of consciousness. Patient suffered a laceration of the occipital scalp. Addition, he complains of left shoulder pain. Differential diagnosis includes syncope, anemia, electrolyte abnormality, cardiac dysrhythmia, gait instability. I reviewed previous records including emergency department visit on July 31 for which he also had a fall with head strike. Based on the nature of his fall down entire flight of stairs, will obtain a CT scan of the head, cervical spine, chest, abdomen and pelvis. Will obtain x-ray of the left shoulder. Will obtain an EKG to rule out cardiac dysrhythmia, acute ischemia. Will obtain electrolytes, CBC to rule out other possible causes. Differential Diagnosis Differential Diagnoses: The differential diagnosis associated with the presentation includes (See above) Admission/Observation Consideration of admission/observation: Escalation of care including admission/observation considered Lab Data MDM Lab Attestation statement: I reviewed the patient's lab results. 08/13/22 12:12 08/13/22 12:12 Labs: Lab Results 08/13/22 08/13/22 08/13/22 Range/Units 12:12 12:12 12:12 WBC 4.7 L (4.8-10.8) X10*3/uL RBC 3.27 L (4.60-5.80) X10*6/uL Hgb 10.4 L (14.0-18.0) g/dl Hct 31.7 L (42.0-52.0) % MCV 96.9 (80.0-98.0) fL MCH 31.8 (27.0-33.0) pg MCHC 32.8 (31.0-36.0) g/dl RDW 13.9 (11.0-16.0) % Plt Count 230 (160-400) X10*3/uL MPV 8.5 L (9.4-12.4) fL Immature Gran % (Auto) 0.2 (0.0-0.4) % Neut % (Auto) 57.4 (45-73) % Lymph % (Auto) 24.2 (20-40) % [place] % (Auto) 10.9 (2-11) % Eos % (Auto) 6.2 H (0-4) % Baso % (Auto) 1.1 (0-2) % Lymph # (Auto) 1.1 L (1.2-4.9) X10*3/uL [place] # (Auto) 0.5 (0.1-1.2) X10*3/uL Eos # (Auto) 0.3 (0.0-0.4) X10*3/uL Baso # (Auto) 0.1 (0.0-0.2) X10*3/uL Abs Immat Gran (auto) 0.01 (0.00-0.03) X10*3/uL Absolute Neuts (auto) 2.7 (2.0-8.3) x10*3/uL Absolute Nucleated RBC 0.000 (0.0-0.012) X10*3/uL Nucleated RBC % (auto) 0.0 (0.0-0.2) /100WBC Sodium 141 (135-145) mmol/L Potassium 4.4 (3.3-5.1) mmol/L Chloride 108 (96-108) mmol/L Carbon Dioxide 25 (22-29) mmol/L Anion Gap 12 (12-20) BUN 23 H (9-16) mg/dL Creatinine 0.86 (0.5-1.4) mg/dL Estim Creat Clear Calc 84.8 Estimated GFR > 60 Random Glucose 95 (60-115) mg/dL Calcium 9.1 (8.4-10.2) mg/dL Total Bilirubin 0.5 (0.0-1.0) mg/dL AST 28 (5-37) U/L ALT 16 (0-40) U/L Alkaline Phosphatase 127 H (39-117) U/L Troponin I High Sens 3.1 D (<3.5-35.0) ng/L Total Protein 6.0 L (6.5-8.0) g/dL Albumin 3.6 (3.5-5.0) g/dL Independent Interpretation I performed an independent interpretation of an: EKG (Normal sinus rhythm heart rate 63, PACs, intraventricular conduction delay consistent with a left bundle branch block, no acute ST elevations depressions, no significant changes compared to August 06, 2022.), Plain X-Ray (Shoulder left: No acute traumatic injury) and CT Scan (CT head, no acute traumatic injury, CT cervical spine, no acute traumatic injury) Radiology Impression Discussion of test interpretation with radiology: I have reviewed the radiologist's reading. Radiologist Impression: CT/CT cervical spine wo IV con IMPRESSION: 1.? No acute intracranial finding. 2.? No fracture or malalignment of the cervical spine. Mild degenerative change. ? Dictated By: Liang Quijano MD Signed By: <Electronically signed by Liang Quijano MD in OV> 08/13/22 1440 IMPRESSION: 1.1 cm calculus impacted at the right ureterovesical junction with mild/moderate right hydroureteronephrosis. No right perinephric stranding. ? ? Dictated By: Samantha Hernandes MD Signed By: <Electronically signed by Samantha Hernandes MD in OV> 08/13/22 1506 Independent Historian Clinical information obtained from an independent historian. History obtained from or confirmed by: EMS External Record Review External record reviewed: Other (Case management notes from August 01) Chronic Conditions Patient?s care impacted by: Other (CAD) Discharge Plan Discharge Clinical Impression: Syncope and collapse, Acute head injury, Laceration of scalp, Acute pain of left shoulder, Ureterolithiasis Patient Disposition: Still a Patient Instructions: Laceration (ED), Syncope (ED), Head Injury (ED), Shoulder Pain (ED), Ureteral Stones (ED), Staple Care (ED) Additional Instructions: remove staple in 1 week Prescriptions: No Action acetaminophen 500 mg tablet 1,000 mg PO TID PRN (Reason: pain) fluticasone propionate 50 mcg/actuation [place],Suspension 1 spray INTRANASAL DAILY PRN (Reason: Allergy Symptoms) Rx Instructions: administer into each nostril allopurinol 100 mg Tablet 100 mg PO DAILY@1700 losartan 25 mg Tablet 25 mg PO DAILY@0800 isosorbide mononitrate 30 mg Tablet Extended Release 24 Hr 30 mg PO DAILY@0800 metoprolol succinate 50 mg Tablet Extended Release 24 Hr 75 mg PO DAILY@0800 atorvastatin 80 mg tablet 80 mg PO DAILY aspirin 81 mg tablet,delayed release (DR/EC) 81 mg PO DAILY sucralfate [Carafate] 100 mg/mL suspension 10 ml PO QIDACHS omeprazole 40 mg capsule,delayed release(DR/EC) 40 mg PO BID Referrals: Geetha Ling MD [Physician] - Physician,Unknown J [Primary Care Provider] - (Primary care provider in 2-3 days)
[2022-08-13 14:31] VITALS: BP 133/64; PULSE 63; RESP 18; TEMP 36.5; O2SAT 99
== END 2022-08-13 16:23 | disposition home or self-care (01) ==
PROVIDERS: Emergency Provider Emergency Medicine
DX: S01.01XA Laceration without foreign body of scalp, initial encounter (principal); S09.90XA Unspecified injury of head, initial encounter; N20.1 Calculus of ureter; M25.512 Pain in left shoulder; R55 Syncope and collapse; R51.9 Headache, unspecified; M54.2 Cervicalgia; R10.2 Pelvic and perineal pain; W01.0XXA Fall on same level from slipping, tripping and stumbling without subsequent striking against object, initial encounter; Y93.9 Activity, unspecified; Y92.9 Unspecified place or not applicable; Y99.9 Unspecified external cause status; Z79.899 Other long term (current) drug therapy
CPT/HCPCS: 12001; 36415; 70450; 71260; 72125; 73030; 74177; 80053; 84484; 85025; 93005; 99284

== ENCOUNTER 2022-08-17 00:02 | Emergency (ER) | payer MEDICARE, MEDICAID, SELFPAY ==
[2022-08-17] VITALS (7 sets, daily range): BP systolic 123–169; BP diastolic 63–85; PULSE 60–72; RESP 13–20; TEMP 36.1–36.4; O2SAT 97–99; BMI 28.4
--- NOTE | ~2022-08-17 | XR_ITS ---
EXAMINATION: XR CHEST CLINICAL INFORMATION: Shortness of breath. COMPARISON: Chest radiograph 08/06/2022. TECHNIQUE: 2 views of the chest were obtained. FINDINGS: Stable appearance of the cardiomediastinal silhouette. Mild bibasilar interstitial prominence, stable. No new focal airspace opacity. No pleural effusion or pneumothorax. Thoracic spondylosis. Left upper quadrant surgical clips/coils. No acute osseous abnormalities. XR/XR chest 2V IMPRESSION: No acute cardiopulmonary findings.
--- NOTE | 2022-08-17 00:21 | ECG_ITS ---
Test Reason : SYNCOPE Blood Pressure : / mmHG Vent. Rate : 067 BPM Atrial Rate : 067 BPM P-R Int : 166 ms QRS Dur : 134 ms QT Int : 460 ms P-R-T Axes : 052 011 085 degrees QTc Int : 486 ms Normal sinus rhythm Left bundle branch block Abnormal ECG When compared with ECG of 13-AUG-2022 11:53, Premature atrial complexes are no longer Present Referred By: Zoya Key Electronically Signed By:KENNETH EVANS
--- NOTE | 2022-08-17 01:59 | PC.NURSE ---
labs drawn with straight needle verified pt name/ labels affixed to specimen containers specimens sent to lab via tube system
[2022-08-17 02:00] LABS: COVID-19 Test Negative (Negative); IDNOW Serial# 08D9AD1C
[2022-08-17 02:02] LABS: MANUAL DIFF FLAG NO
[2022-08-17 02:03] LABS: Basophils Absolute Auto 0.1 X10*3/uL (0.0-0.2); Eosinophils Absolute Auto 0.3 X10*3/uL (0.0-0.4); Eosinophils Percent Auto 5.4 % (0-4); Hemoglobin 9.8 g/dl (14.0-18.0); Imm Gran Abs Auto 0.01 X10*3/uL (0.00-0.03); Imm Gran Pct Auto 0.2 % (0.0-0.4); Lymphocytes Absolute Auto 1.2 X10*3/uL (1.2-4.9); Lymphocytes Percent Auto 24.1 % (20-40); Mean Corpuscular HGB Conc 31.6 g/dl (31.0-36.0); Mean Corpuscular Hemoglobin 30.5 pg (27.0-33.0); Mean Corpuscular Volume 96.6 fL (80.0-98.0); Mean Platelet Volume 8.7 fL (9.4-12.4); Monocytes Absolute Auto 0.7 X10*3/uL (0.1-1.2); Monocytes Percent Auto 13.7 % (2-11); Neutrophils Absolute Auto 2.8 x10*3/uL (2.0-8.3); Neutrophils Percent Auto 55.6 % (45-73); Platelet Count 232 X10*3/uL (160-400); Red Blood Count 3.21 X10*6/uL (4.60-5.80)
[2022-08-17 02:21] LABS: Alanine Aminotransferase 13 U/L (0-40); Albumin Level 3.7 g/dL (3.5-5.0); Alkaline Phosphatase 113 U/L (39-117); Anion Gap 13 (12-20); Aspartate Amino Transferase 26 U/L (5-37); Bilirubin Total 0.6 mg/dL (0.0-1.0); Blood Urea Nitrogen 20 mg/dL (9-16); Calcium 9.6 mg/dL (8.4-10.2); Carbon Dioxide 27 mmol/L (22-29); Chloride 110 mmol/L (96-108); Creatinine Clr Calc Pharmacy 75.9; Estimated Glomerular Filt Rate > 60; Glucose Random 98 mg/dL (60-115); Magnesium 2.1 mg/dL (1.6-2.6); Potassium 4.7 mmol/L (3.3-5.1); Sodium 145 mmol/L (135-145); Total Protein 6.2 g/dL (6.5-8.0)
[2022-08-17 02:25] LABS: Troponin-I High Sensitivity 6.6 ng/L (<3.5-35.0)
[2022-08-17 02:31] LABS: B Type Natriuretic Peptide 42 pg/mL (<100)
--- NOTE | 2022-08-17 02:48 | ED_ITS ---
HPI - Syncope General Chief Complaint: Syncope Stated Complaint: SOB Time Seen by Provider: 08/17/22 02:46 Source: patient Mode of arrival: EMS Limitations: no limitations History of Present Illness HPI narrative: 67-year-old male who presents emergency department for evaluation of syncopal episode. The patient states that he is homeless and was walking on the street when he suddenly passed out. He states there was no warning or premonition that he was going to lose consciousness. Bystanders called EMS and the patient was brought to emergency department for evaluation. The patient is well-known to the emergency depart he has been seen here frequently for syncopal episodes. The patient states that this is his 11th syncopal episode in 2 weeks. Patient was last seen here in the emergency department on 08/13/2022 for syncope and head injury. Patient denied being ill in any way prior to fall. Review of systems was negative. Related Data Home Medications Medication Instructions Recorded Confirmed allopurinol 100 mg tablet 100 mg PO DAILY@1700 08/07/21 07/31/22 isosorbide mononitrate 30 mg 30 mg PO DAILY@0800 08/07/21 07/31/22 tablet,extended release 24 hr losartan 25 mg tablet 25 mg PO DAILY@0800 08/07/21 07/31/22 metoprolol succinate 50 mg 75 mg PO DAILY@0800 08/07/21 07/31/22 tablet,extended release 24 hr acetaminophen 500 mg tablet 1,000 mg PO TID PRN pain 02/16/22 07/31/22 fluticasone propionate 50 1 spray intranasal DAILY PRN 05/16/22 07/31/22 mcg/actuation nasal Allergy Symptoms spray,suspension aspirin 81 mg tablet,delayed 81 mg PO DAILY 06/04/22 07/31/22 release atorvastatin 80 mg tablet 80 mg PO DAILY 06/04/22 07/31/22 omeprazole 40 mg capsule,delayed 40 mg PO BID 07/23/22 07/31/22 release sucralfate 100 mg/mL oral 10 ml PO QIDACHS 07/23/22 07/31/22 suspension (Carafate) Allergies Allergy/AdvReac Type Severity Reaction Status Date / Time polyethylene glycol Allergy Itching Verified 07/23/22 16:49 Iodinated Contrast Media AdvReac Severe PARALYSIS/N Verified 07/23/22 16:49 [CONTRAST, IV] UMBNESS Review of Systems Review of Systems: Yes all other systems are reviewed and are negative [facility] Past Medical History Medical History Airway polyps Atypical chest pain Chest pain Coronary artery disease Gout Hypertension Incarcerated left inguinal hernia Ischemic heart disease due to coronary artery obstruction Left bundle branch block Left bundle branch block NICM (nonischemic cardiomyopathy) No known health problems Peptic ulcer disease Syncope Surgical History H/O heart artery stent History of partial gastrectomy Family History Family History Father Myocardial infarction Social History Social History Household Members: Other Household Members Other:: with friends, staying with friends Housing: Other Housing Other:: staying with a friend and financial assistance to find a hotel room Do you presently have visiting nurse or other home services: No Alcohol intake: never Patient Tobacco Use Status: Never used Tobacco Smoked in Last 30 Days: No Second Hand Smoke Exposure: Yes (friends he stays with smoke outside) Use of substances other than those prescribed or required for medical reasons: No Advance Directives: Yes Advance Directives on File: Yes Advance Directives Date on File: 05/20/22 service: No Current occupational status: unemployed Physical Exam Vital Signs: Vital Signs: Last Vital Signs Temp 96.9 F 08/17/22 00:22 Pulse 60 08/17/22 06:05 Resp 13 08/17/22 06:05 BP 132/63 08/17/22 06:05 Pulse Ox 98 08/17/22 06:05 O2 Del Method Room Air 08/17/22 06:05 BMI result Body Mass Index 28.4 Const: General: cooperative and no acute distress Orientation/consciousness: oriented to person and oriented to place Limitations: no limitations HEENT: Head: Yes normal to inspection, Yes normocephalic and Yes atraumatic Ears: external ears normal General nose exam: Normal external nose present Face and sinus: Yes normal facial exam Mouth: Normal oral and palatal mucosa present Throat: Yes posterior oropharynx normal Eyes: General: appearance normal, both eyes and all related structures Pupils: Equal, round and reactive pupils present Neck: Neck: Yes normal visual inspection, Yes no lymphadenopathy, Yes trachea midline and Yes supple Chest: Chest palpation & inspection: normal inspection of the chest and normal palpation of entire chest wall Resp: Effort & Inspection: normal respiratory effort and able to speak in complete sentences Auscultation: clear to auscultation bilaterally Cardio: Rate: regular rate Rhythm: regular rhythm Heart sounds: S1 normal heart sound present, S2 normal heart sound present and no murmurs GI: Inspection: Yes normal to inspection Palpation (GI): Soft to palpation, nontender and no guarding Auscultation: normal bowel sounds : General: Yes no CVA tenderness Back/Spine/Pelvis: Back: no CVA tenderness Skin: General skin exam: no rashes or lesions noted Neuro: General: oriented to person and oriented to place Cranial nerves: Yes CN's II-XII intact bilaterally and Yes Equal, round and reactive pupils present Cognition (Neuro): normal cognition Motor exam (neuro): 5/5 motor strength present throughout Extrem: General: Yes normal to inspection Psych: Appearance: grossly normal Speech and movement: Normal speech and movement present Affect: normal affect Attitude: cooperative Thought process: Normal thought process present Thought content: Normal thought content present Medical Decision Making Medical Decision Making [facility] Narrative: 67-year-old male who presents emergency department for evaluation of a syncopal episode. The patient has been here multiple times with similar presentation. The patient has had a cardiac workup for syncope which is been negative and there is no clear etiology been determined for his frequent syncopal episodes. The patient's physical examination was unremarkable . I ordered a CBC, CMP, BNP, magnesium, BNP, troponin, COVID test on the patient. Patient will be kept on a cardiac and pulse ox monitor while here in the emergency department 0307: Start physician observation: Patient's laboratory evaluation was unremarkable. Twelve EKG was unremarkable. The patient will be kept in the emergency depart and monitor until the morning. If he has no significant arrhythmia is he will be discharged home. 0624: End physician observation: The patient had no arrhythmias or any further episodes of syncope. The patient will be discharged home. Differential Diagnosis Differential Diagnoses: The differential diagnosis associated with the presentation includes Differential diagnosis includes was not limited to arrhythmia, electrolyte abnormality, anemia, Admission/Observation Consideration of admission/observation: Escalation of care including admission/observation considered Lab Data [facility] Lab Attestation statement: I reviewed the patient's lab results. My independent interpretation patient's pertinent lab data is as follows: Chronic anemia with an H&H of 9.8 and 31. High sensitive troponin detectable but not elevated at 6.6-this appears to be chronic 08/17/22 01:58 08/17/22 01:58 Labs: Lab Results 08/17/22 08/17/22 08/17/22 Range/Units 01:29 01:58 01:58 WBC 5.0 (4.8-10.8) X10*3/uL RBC 3.21 L (4.60-5.80) X10*6/uL Hgb 9.8 L (14.0-18.0) g/dl Hct 31.0 L (42.0-52.0) % MCV 96.6 (80.0-98.0) fL MCH 30.5 (27.0-33.0) pg MCHC 31.6 (31.0-36.0) g/dl RDW 14.0 (11.0-16.0) % Plt Count 232 (160-400) X10*3/uL MPV 8.7 L (9.4-12.4) fL Immature Gran % (Auto) 0.2 (0.0-0.4) % Neut % (Auto) 55.6 (45-73) % Lymph % (Auto) 24.1 (20-40) % [place] % (Auto) 13.7 H (2-11) % Eos % (Auto) 5.4 H (0-4) % Baso % (Auto) 1.0 (0-2) % Lymph # (Auto) 1.2 (1.2-4.9) X10*3/uL [place] # (Auto) 0.7 (0.1-1.2) X10*3/uL Eos # (Auto) 0.3 (0.0-0.4) X10*3/uL Baso # (Auto) 0.1 (0.0-0.2) X10*3/uL Abs Immat Gran (auto) 0.01 (0.00-0.03) X10*3/uL Absolute Neuts (auto) 2.8 (2.0-8.3) x10*3/uL Absolute Nucleated RBC 0.000 (0.0-0.012) X10*3/uL Nucleated RBC % (auto) 0.0 (0.0-0.2) /100WBC Sodium 145 (135-145) mmol/L Potassium 4.7 (3.3-5.1) mmol/L Chloride 110 H (96-108) mmol/L Carbon Dioxide 27 (22-29) mmol/L Anion Gap 13 (12-20) BUN 20 H (9-16) mg/dL Creatinine 1.05 (0.5-1.4) mg/dL Estim Creat Clear Calc 75.9 Estimated GFR > 60 Random Glucose 98 (60-115) mg/dL Calcium 9.6 (8.4-10.2) mg/dL Magnesium 2.1 (1.6-2.6) mg/dL Total Bilirubin 0.6 (0.0-1.0) mg/dL AST 26 (5-37) U/L ALT 13 (0-40) U/L Alkaline Phosphatase 113 (39-117) U/L Troponin I High Sens (<3.5-35.0) ng/L B-Natriuretic Peptide (<100) pg/mL Total Protein 6.2 L (6.5-8.0) g/dL Albumin 3.7 (3.5-5.0) g/dL COVID-19 (JAMAAL) Negative (Negative) COVID-19 Clin Com See Note 08/17/22 08/17/22 Range/Units 01:58 01:58 WBC (4.8-10.8) X10*3/uL RBC (4.60-5.80) X10*6/uL Hgb (14.0-18.0) g/dl Hct (42.0-52.0) % MCV (80.0-98.0) fL MCH (27.0-33.0) pg MCHC (31.0-36.0) g/dl RDW (11.0-16.0) % Plt Count (160-400) X10*3/uL MPV (9.4-12.4) fL Immature Gran % (Auto) (0.0-0.4) % Neut % (Auto) (45-73) % Lymph % (Auto) (20-40) % [place] % (Auto) (2-11) % Eos % (Auto) (0-4) % Baso % (Auto) (0-2) % Lymph # (Auto) (1.2-4.9) X10*3/uL [place] # (Auto) (0.1-1.2) X10*3/uL Eos # (Auto) (0.0-0.4) X10*3/uL Baso # (Auto) (0.0-0.2) X10*3/uL Abs Immat Gran (auto) (0.00-0.03) X10*3/uL Absolute Neuts (auto) (2.0-8.3) x10*3/uL Absolute Nucleated RBC (0.0-0.012) X10*3/uL Nucleated RBC % (auto) (0.0-0.2) /100WBC Sodium (135-145) mmol/L Potassium (3.3-5.1) mmol/L Chloride (96-108) mmol/L Carbon Dioxide (22-29) mmol/L Anion Gap (12-20) BUN (9-16) mg/dL Creatinine (0.5-1.4) mg/dL Estim Creat Clear Calc Estimated GFR Random Glucose (60-115) mg/dL Calcium (8.4-10.2) mg/dL Magnesium (1.6-2.6) mg/dL Total Bilirubin (0.0-1.0) mg/dL AST (5-37) U/L ALT (0-40) U/L Alkaline Phosphatase (39-117) U/L Troponin I High Sens 6.6 D (<3.5-35.0) ng/L B-Natriuretic Peptide 42 (<100) pg/mL Total Protein (6.5-8.0) g/dL Albumin (3.5-5.0) g/dL COVID-19 (JAMAAL) (Negative) COVID-19 Clin Com Independent Interpretation I performed an independent interpretation of an: EKG and Plain X-Ray Interpretation: My independent interpretation the patient's two-view chest x-ray is as follows: No acute disease My independent interpretation patient's 12 EKG done at 00:53 hours is as follows: Normal sinus rhythm rate of 67, normal [place] interval, prolonged QRS duration 134 milliseconds prolonged QTC interval of 486 milliseconds, left bundle-branch block, no ST segment elevation no ST segment depression . Radiology Impression Discussion of test interpretation with radiology: I have reviewed the radiologist's reading. Radiologist Impression: XR chest 2V IMPRESSION: No acute cardiopulmonary findings. Dictated By:Rehana No Discharge Plan Discharge Clinical Impression: Syncope Patient Disposition: Home, Self-Care Additional Instructions: Your blood work was unchanged from her baseline. At this time I do not have a clear cause for your syncope. Continue taking your medications as prescribed. Follow-up with your doctor in 2 days. Please return to the emergency department if your symptoms get worse or if you develop any symptoms that are concerning to you. Prescriptions: No Action acetaminophen 500 mg tablet 1,000 mg PO TID PRN (Reason: pain) fluticasone propionate 50 mcg/actuation [place],Suspension 1 spray INTRANASAL DAILY PRN (Reason: Allergy Symptoms) Rx Instructions: administer into each nostril allopurinol 100 mg Tablet 100 mg PO DAILY@1700 losartan 25 mg Tablet 25 mg PO DAILY@0800 isosorbide mononitrate 30 mg Tablet Extended Release 24 Hr 30 mg PO DAILY@0800 metoprolol succinate 50 mg Tablet Extended Release 24 Hr 75 mg PO DAILY@0800 atorvastatin 80 mg tablet 80 mg PO DAILY aspirin 81 mg tablet,delayed release (DR/EC) 81 mg PO DAILY sucralfate [Carafate] 100 mg/mL suspension 10 ml PO QIDACHS omeprazole 40 mg capsule,delayed release(DR/EC) 40 mg PO BID
--- NOTE | 2022-08-17 05:36 | PC.NURSE ---
pt sleeping even and unlabored respirations
--- NOTE | 2022-08-17 07:05 | PC.NURSE ---
N2N report given to CATRACHO Figueredo
== END 2022-08-17 07:39 | disposition home or self-care (01) ==
PROVIDERS: Physician Assistant Medical; Emergency Provider Emergency Medicine Emergency Medical Services; PCP Internal Medicine
DX: R55 Syncope and collapse (principal); R06.02 Shortness of breath; Z79.899 Other long term (current) drug therapy; Z20.822 Contact with and (suspected) exposure to COVID-19; Z20.828 Contact with and (suspected) exposure to other viral communicable diseases
CPT/HCPCS: 36415; 71046; 80053; 83735; 83880; 84484; 85025; 87635; 93005; 99283; 99285

== ENCOUNTER 2022-08-21 15:17 | Outpatient (REF) | payer MEDICARE, MEDICAID, SELFPAY ==
[2022-08-21 16:19] LABS: Basophils Percent Auto 0.7 % (0-2); Eosinophils Absolute Auto 0.2 X10*3/uL (0.0-0.4); Eosinophils Percent Auto 5.1 % (0-4); Hematocrit 31.9 % (42.0-52.0); Hemoglobin 10.3 g/dl (14.0-18.0); Imm Gran Abs Auto 0.01 X10*3/uL (0.00-0.03); Imm Gran Pct Auto 0.2 % (0.0-0.4); Lymphocytes Absolute Auto 1.1 X10*3/uL (1.2-4.9); Lymphocytes Percent Auto 25.8 % (20-40); MANUAL DIFF FLAG SCAN; Mean Corpuscular HGB Conc 32.3 g/dl (31.0-36.0); Mean Corpuscular Hemoglobin 31.2 pg (27.0-33.0); Mean Corpuscular Volume 96.7 fL (80.0-98.0); Mean Platelet Volume 10.4 fL (9.4-12.4); Monocytes Absolute Auto 0.5 X10*3/uL (0.1-1.2); Monocytes Percent Auto 12.1 % (2-11); Neutrophils Absolute Auto 2.4 x10*3/uL (2.0-8.3); Neutrophils Percent Auto 56.1 % (45-73); PLT CLUMP 1; SCAN SMEAR FLAG 1
[2022-08-21 16:20] LABS: White Blood Count 4.3 X10*3/uL (4.8-10.8)
[2022-08-21 16:42] LABS: Platelet Count 225 X10*3/uL (160-400)
[2022-08-21 16:43] LABS: SLIDE REVIEW VERIFIED
[2022-08-21 20:10] LABS: Alanine Aminotransferase 12 U/L (0-40); Albumin Level 3.9 g/dL (3.5-5.0); Alkaline Phosphatase 109 U/L (39-117); Anion Gap 16 (12-20); Aspartate Amino Transferase 32 U/L (5-37); Bilirubin Total 0.6 mg/dL (0.0-1.0); Blood Urea Nitrogen 24 mg/dL (9-16); Calcium 9.7 mg/dL (8.4-10.2); Carbon Dioxide 25 mmol/L (22-29); Chloride 104 mmol/L (96-108); Estimated Glomerular Filt Rate > 60; Glucose Random 91 mg/dL (60-115); Potassium 4.8 mmol/L (3.3-5.1); Sodium 140 mmol/L (135-145)
== END 2022-08-21 15:18 | disposition home or self-care (01) ==
LOC: HO.LAB 15:17
PROVIDERS: PCP Internal Medicine; Visit Provider Internal Medicine
DX: I25.10 Atherosclerotic heart disease of native coronary artery without angina pectoris (principal); R60.0 Localized edema; D64.9 Anemia, unspecified; M10.9 Gout, unspecified
CPT/HCPCS: 36415; 80053; 85025

== ENCOUNTER 2022-08-22 00:47 | Emergency (ER) | payer MEDICARE, MEDICAID, SELFPAY ==
[2022-08-22] VITALS (8 sets, daily range): BP systolic 120–172; BP diastolic 67–80; PULSE 65–94; RESP 15–18; TEMP 36.7–37; O2SAT 96–100; BMI 27.8
--- NOTE | ~2022-08-22 | CT_ITS ---
EXAMINATION: CT brain and CT cervical spine without contrast. CLINICAL INDICATIONS: Fall.. CT brain 08/13/2022 TECHNIQUE: 5 mm thin axial and reformatted 2 mm thin reconstructed sagittal and coronal images of brain were obtained. Subsequently axial 3 mm thin and reformatted 2 mm thin sagittal and coronal images of brain were obtained. DLP 1106. This CT examination was performed using dose optimization technique as appropriate, variously including the following: Automated exposure control Adjustment of MA and/or KV according to patient size(this includes techniques or standardized protocols for targeted exams where dose is matched to indication/reason for exam; extremities or head. Use of iterative reconstruction techniques. FINDINGS: Brain: There is no acute intra-axial, extra-axial bleed, masses or midline shift. The vaughn to white matter differentiation is maintained normal. The lateral ventricles are symmetrical in size but enlarged. There is no acute infarction evolution. The lateral ventricles are symmetrical but enlarged. Bone windows reveal no calvarial abnormality. Bilateral paranasal sinuses and mastoid air cells are well-aerated. Cervical spine: There is normal cervical lordosis. Vertebral heights and disc heights are normal. There is grade 1 anterolisthesis C7 over T1. The facet joints are symmetrical and normal. No disc bulge, herniation or spinal canal stenosis seen the neural foramina somewhat patent. The prevertebral and paravertebral soft tissues are normal. CT/CT head/brain wo IV con IMPRESSION: No acute intracranial process seen No acute fracture, dislocation subluxation cervical spine. Grade 1 anterolisthesis C7 over T1.
--- NOTE | ~2022-08-22 | CT_ITS ---
EXAMINATION: CT brain and CT cervical spine without contrast. CLINICAL INDICATIONS: Fall.. CT brain 08/13/2022 TECHNIQUE: 5 mm thin axial and reformatted 2 mm thin reconstructed sagittal and coronal images of brain were obtained. Subsequently axial 3 mm thin and reformatted 2 mm thin sagittal and coronal images of brain were obtained. DLP 1106. This CT examination was performed using dose optimization technique as appropriate, variously including the following: Automated exposure control Adjustment of MA and/or KV according to patient size(this includes techniques or standardized protocols for targeted exams where dose is matched to indication/reason for exam; extremities or head. Use of iterative reconstruction techniques. FINDINGS: Brain: There is no acute intra-axial, extra-axial bleed, masses or midline shift. The vaughn to white matter differentiation is maintained normal. The lateral ventricles are symmetrical in size but enlarged. There is no acute infarction evolution. The lateral ventricles are symmetrical but enlarged. Bone windows reveal no calvarial abnormality. Bilateral paranasal sinuses and mastoid air cells are well-aerated. Cervical spine: There is normal cervical lordosis. Vertebral heights and disc heights are normal. There is grade 1 anterolisthesis C7 over T1. The facet joints are symmetrical and normal. No disc bulge, herniation or spinal canal stenosis seen the neural foramina somewhat patent. The prevertebral and paravertebral soft tissues are normal. CT/CT cervical spine wo IV con IMPRESSION: No acute intracranial process seen No acute fracture, dislocation subluxation cervical spine. Grade 1 anterolisthesis C7 over T1.
--- NOTE | ~2022-08-22 | CT_ITS ---
Examination: CT chest and CT abdomen pelvis without IV contrast. Clinical indications: Trauma. COMPARISON: CT abdomen and pelvis 08/13/2022.. TECHNIQUE: 5 mm thin axial and reformatted 3 minutes thin sagittal and coronal images of chest, abdomen pelvis were obtained without contrast. DLP 933. FINDINGS: CHEST: LUNGS: The lungs are well-expanded and clear of acute pneumonic process. Minimal compressive atelectasis changes are seen in both lung bases There is no acute consolidation, mass or atelectasis. Mediastinum: Thyroid lobes are symmetric and normal. The central trachea and bronchi are widely patent. Heart size and the great vessels are normal caliber. There is mild coronary artery calcifications. No pericardial effusion seen. Pleura: Unremarkable. Axilla: Unremarkable. Osseous structures: No aggressive lytic or sclerotic process seen. There is mild ventral spondylosis. Abdomen and pelvis: Liver, ducts and gallbladder: The liver is normal size, homogeneous in density and normal contour. No focal lesion or intrahepatic ductal dilatation seen. There are no radiopaque gallstones or wall thickening. Spleen: Unremarkable. Pancreas: Unremarkable. Adrenal glands: Unremarkable. Kidneys: Both kidneys are normal size, shape and position. No radiopaque renal calculi or hydronephrosis seen. There is mild bilateral perinephric stranding. Lymphovascular structures: The abdominal aorta is normal caliber. No abnormal size lymph nodes seen. GI tract: There is scattered stool and gas seen in the colon without any significant distention. The small bowel loops are normal caliber. Appendix is normal caliber. There are postsurgical/post gastric bypass or gastric reduction surgery. Pelvis: The bladder and appears unremarkable. The prostate gland is normal size. No free fluid. No inguinal hernias. CT/CT abdomen pelvis wo IV con IMPRESSION: Minimal compressive atelectasis in the lung bases. Otherwise CT chest is unremarkable. Mild constipation without obstruction. Normal appendix.. Patient has undergone radical neck dissection Osseous structures: There is mild degenerative disc changes T12/L1 disc level with endplate Schmorl's node. There is grade 1 anterolisthesis L4 over L5 and L5-S1 with mild grade 1 degenerative listhesis at these 2 disc levels. IMPRESSION: No acute process seen in chest. Mild constipation with postsurgical changes along the stomach in the epigastric region x2.
--- NOTE | ~2022-08-22 | XR_ITS ---
Examination: Bilateral tibia and fibula. CLINICAL INDICATION: Pain. COMPARISON: None. TECHNIQUE: 4 views each knee. FINDINGS: Left knee: There is maintained medial and patellofemoral compartment joint space with a lateral and the patellofemoral compartment joints is narrowed. No abnormal joint effusion seen. No loose bodies. There is a small calcaneal enthesophyte. The soft tissues are normal. Right knee: There is no acute visible fracture or bony abnormality. The ankle mortise joint is normal. The bony cortex of the tibia and fibula are normal. The soft tissues are normal. XR/XR tibia fibula LT 2V IMPRESSION: Unremarkable bilateral knee except for a large calcaneal heel enthesophyte left calcaneus.
--- NOTE | ~2022-08-22 | XR_ITS ---
Examination: Bilateral tibia and fibula. CLINICAL INDICATION: Pain. COMPARISON: None. TECHNIQUE: 4 views each knee. FINDINGS: Left knee: There is maintained medial and patellofemoral compartment joint space with a lateral and the patellofemoral compartment joints is narrowed. No abnormal joint effusion seen. No loose bodies. There is a small calcaneal enthesophyte. The soft tissues are normal. Right knee: There is no acute visible fracture or bony abnormality. The ankle mortise joint is normal. The bony cortex of the tibia and fibula are normal. The soft tissues are normal. XR/XR tibia fibula RT 2V IMPRESSION: Unremarkable bilateral knee except for a large calcaneal heel enthesophyte left calcaneus.
--- NOTE | ~2022-08-22 | XR_ITS ---
EXAMINATION: XR WRIST, RIGHT CLINICAL INFORMATION: Fall.. Pain COMPARISON: None available. TECHNIQUE: PA, lateral, and oblique views of the right wrist. FINDINGS: The bones and soft tissues are normal. No fracture. Alignment is anatomic with normal joint spaces. No erosions or abnormal soft tissue calcifications. XR/XR wrist RT min 3V IMPRESSION: Unremarkable right wrist exam.
--- NOTE | ~2022-08-22 | XR_ITS ---
EXAMINATION: XR CHEST CLINICAL INFORMATION: Chest pain. COMPARISON: Most recent CT chest dated 08/22/2022. TECHNIQUE: Frontal view of the chest was obtained. FINDINGS: No focal airspace consolidation. No pleural effusion or pneumothorax. Stable cardiac mediastinal silhouette. Upper abdominal surgical sutures are redemonstrated. No acute osseous abnormality. XR/XR chest 1V IMPRESSION: No acute cardiopulmonary findings.
--- OUTSIDE RECORDS SUMMARY | 2022-08-22 01:36 | XMS_ITS | Continuity of Care Document ---
Author Name Unknown Organization [facility] ter Address [address] [place] [id number]- Care Team Providers Care Driver Material Handler Name Role Phone Naseem Alford MD Primary Care Physician Encounter [facility] Date(s): 08/16/22 - 08/16/[address] [id number]- Encounter Diagnosis Gastric ulcer(Final) - 08/16/22 Anemia(Final) - 08/16/22 Abdominal pain(Final) - 08/16/22 Inguinal hernia(Final) - 08/16/22 Discharge Disposition: A-D/C Home Attending Physician: Willis Mckinney MD Admitting Physician: Willis Mckinney MD Referring Physician: Not on Staff, Referring [...] 8:31:00 EDT, Route to Pharmacy Electronically, [facility], Partial fill upon patient request if the prescription is for a philomena... Start Date: 05/13/22 Status: Ordered aspirin 81 mg oral delayed release tablet 81 mg, 1, tablet, By Mouth, Daily, # 30 tablet, Refills 0, Tot. Refills 0, Maintenance, 05/13/22 8:31:00 EDT, Route to Pharmacy Electronically, [facility], Partial fill upon patient request if the prescription is for a schedule II opioid... Start Date: 05/13/22 Status: Ordered atorvastatin 80 mg oral tablet 1 tablet = 80 mg, By Mouth, Daily, # 30 tablet, 5 Refills, Maintenance, 05/13/22 8:31:00 EDT, Tablet, [facility], Partial fill upon patient request if the prescription is for a scheduleII opioid drug., 179, cm, 05/13/22 7:32:00 EDT, Hei... Start Date: 05/13/22 Status: Ordered Carafate 1 gm/10 ml oral suspension 10 mL = 1 Gm, By Mouth, 3 times a day before meals and bedtime, # 1,200 mL, 1 Refills, Maintenance,07/01/22 8:49:00 EDT, [facility], Partial fill upon patient request if the prescription is for a schedule II opioid drug., 178, cm, 07/01... Start Date: 07/01/22 Status: Ordered Flonase 50 mcg/inh nasal spray 1 sprays, Nares, Both, 2 times a day, PRN Nasal Congestion, 0 Refills, Maintenance, 06/20/22 2:12:00 EDT, [place], Partial fill upon patient request if the prescription is for a schedule II opioid drug. Start Date: 06/20/22 Status: Ordered isosorbide mononitrate 30 mg oral tablet, extended release 1 tablet = 30 mg, By Mouth, Daily in AM, # 30 tablet, 0 Refills, Maintenance, 05/13/22 8:31:00 EDT,ER Tablet, [facility], Partial fill upon patient request if the prescription is for aschedule II opioid drug., 179, cm, 05/13/22 7:32:00... Start Date: 05/13/22 Status: Ordered losartan 25 mg oral tablet 25 mg, 1, tablet, By Mouth, Daily, # 30 tablet, Refills 0, Tot. Refills 0, Maintenance, 05/13/22 8:31:00 EDT, Route to Pharmacy Electronically, [facility], Partial fill upon patient request if the prescription is for a schedule II opioid... Start Date: 05/13/22 Status: Ordered metoprolol 50 mg oral tablet, extended release 50 mg, 1, tablet, By Mouth, Daily in AM, # 30 tablet, Refills 2, Tot. Refills 2, Maintenance, 05/13/22 8:31:00 EDT, Route to Pharmacy Electronically, [facility], Partial fill upon patient [...] Maintenance, 07/01/22 8:50:00 EDT, EC Capsule, [facility], Partial fill upon patient [...] Exam Date Time Procedure Performing Provider Status 08/16/22 5:[address] Abdomen and Pelvi s W/O Contrast Alba Ny (Verified) Notes: (CT Abdomen and Pelvis W/O Contrast) Reason For Exam: LUQ abdominal pain, hx gastric ulcer perf, reports sudden onset of same pain;Pain RESULT: CT Abdomen and Pelvis W/O Contrast CT Abdomen and Pelvis W/O Contrast HX OF PRESENT ILLNESS: Pt complains of 10 10 abdominal pain in LLQ - has hx of perforated ulcer andstates it feels similar. Pt also states he has had nine syncopal episods in the past two weeks - victoria in the back of his head from a fall and head lac x 1 week ago TECHNIQUE: Spiral CT through the abdomen and pelvis without IV contrast formatted in 3 planes. Thisstudy was performed without oral contrast. Weight- based protocol using automatic tube modulation was used to optimize exposure parameters. COMPARISON: 06/30/2022. FINDINGS: Evaluation of the abdominal and pelvic viscera is suboptimal without intravenous contrast. Healthcare Recruiter View Findings, Lines and Tubes: None. Visualized Chest: Mild subpleural reticulation at the lung bases, suggesting fibrosing interstitiallung disease, similar to prior studies. No pleural effusion. The heart is normal in size. No pericardial effusion. Diaphragm: Normal. Liver: Normal morphology. No focal masses. Gallbladder: No CT evidence of gallbladder pathology. Bile ducts: No intrahepatic bile duct dilation. Mild common duct dilation, similar to prior studies. Spleen: Normal size. Pancreas: Normal. Adrenal glands: Normal. Kidneys and ureters: No hydronephrosis. No calculi. Bladder: Mild thickening of the bladder, similar to prior studies. No surrounding inflammatory changes. Reproductive organs: Enlarged prostate measuring 4.7 cm in maximum transverse dimension. Stomach, small bowel, and large bowel: The stomach is normal status post gastric bypass surgery. Noevidence of gastric outlet obstruction. The small bowel is normal in caliber, without evidence of small bowel obstruction. The rectum is normal. Moderate amount stool within the colon Appendix: Normal. Peritoneum and retroperitoneum: No ascites or pneumoperitoneum. No omental or mesenteric lesions. Lymph nodes: No enlarged lymph nodes. Blood vessels: Normal. No aneurysm. Abdominal and pelvic wall: Bilateral small fat-containing inguinal hernias with prior mesh repair. Bones: No acute abnormality. Moderate degenerative changes of the visualized thoracolumbar spine most prominent at T12-L1. Minimal grade 1 anterolisthesis of L4 on L5 and L5 on S1, unchanged. IMPRESSION: No acute findings in the abdomen or pelvis. I have personally reviewed the images and I agree with this report. WSN: [id number] Ordering Physician: Georgette Cardoso Dictated By: Yosef Pederson MD Dictated Date/Time: 08/16/22 7:05 am Reviewed By: Silvio Hess MD Signed By: Silvio Hess MD Signed Date/Time: 08/16/22 7:10 am Transcribed By: LISA Transcribed Date/Time: 08/16/22 6:04 am Vital Signs Most recent to oldest [Reference Range]: 1 2 Oxygen Saturation [94-100 %] 98 % (08/16/22 6:36 AM) 100 % (08/16/22 4:22 AM) Pulse Rate [55-90 bpm] 80 bpm (08/16/22 6:36 AM) 77 bpm (08/16/22 4:22 AM) Blood Pressure [90-138/55-84 mm Hg] 136/ 75mm Hg (08/16/22 6:36 AM) 145/75mm Hg *H* (08/16/22 4:22 AM) Respiratory Rate [16-30 br/min] 18 br/mi n (08/16/22 6:36 AM) 18 br/min (08/16/22 4:22 AM) Temperature [96.8-100.4 DegF] 98.2 DegF (08/16/22 4:22 AM) Mode of Delivery (Oxygen) Room air (08/16/22 6:36 AM) Room air (08/16/22 4:22 AM) Blood pressure sites Arm, right (08/16/22 6:36 AM) Arm, right (08/16/22 4:22 AM) Temperature Route Oral (08/16/22 4:22 AM) Social History Social History Type Response Smoking Status Never (less than 100 in lifetime) entered on: 10/21/19 Sex Implantable Device List Procedure Provider Procedure Date Device Type Site Repair Hernia Inguinal Laparoscopic Charan Mckeon MD 06/24/21 Unknown Groin Right Device Identifier Serial Number Lot or Batch Number Manufacturing Date Expiration Date Distinct Identification Code MRI Safety Implantable Status Assigning Authority [id number] Unknown [id number] Unknown 12/26/25 Unknown Unknown Active GS1 Procedure Provider Procedure Date Device Type Site Repair Hernia Inguinal Laparoscopic Charan Mckeon MD 06/24/21 Unknown Groin Left Device Identifier Serial Number Lot or Batch Number Manufacturing Date Expiration Date Distinct Identification Code MRI Safety Implantable Status Assigning Authority [id number] Unknown Unknown Unknown 04/28/25 Unknown Unknown Active GS1 Note * Georgette Cardoso MD: PERFORM Event Display: Patient Education Leaflets Authored Date: [id number] Unknown Causes of Abdominal Pain (Adult) ?? [id number] Unknown Causes of Abdominal Pain (Adult) The [...] period ?? Last Reviewed Date: 2020 ?? [id number] [employer]. All rights reserved. This information is not intended as a substitute for professional medical care. Always follow your healthcare professional's instructions. ?? Patient Care team information Care Team Personnel Name: Rosmery Bonds RN Position: [facility] RN Member Role: Primary Care Nurse Name: Jolynn Bhatti RN Position: [facility] RN Member Role: Primary Care Nurse Name: Petty Hines RN Position: [facility] RN Member Role: Primary Care Nurse Name: Naseem Alford MD Position: [facility] Outreach Member Role: PCP Address: Address: [address] Naseem Sophy Alford MD [place], [place] - [place] Name: Heather Garrett RN Position: [facility] RN Member Role: Primary Care Nurse Name: Tila Stock RN Position: [facility] RN Member Role: Primary Care Nurse Name: Roberta Noel RN Position: [facility] RN Member Role: Primary Care Nurse Name: Grace Almanzar RN Position: [facility] RN Member Role: Primary Care Nurse Name: Mercedez Zuniga RN Position: [facility] RN Member Role: Primary Care Nurse Name: Franco Sanchez RN Position: [facility] RN Member Role: Primary Care Nurse Name: Nathaly Zimmer RN Position: [facility] RN Member Role: Primary Care Nurse Name: Natalie Carmichael RN Position: [facility] RN Member Role: Primary Care Nurse Name: Romina Delarosa RN Position: [facility] RN Member Role: Primary Care Nurse Name: Georgette Mesa RN Position: [facility] RN Member Role: Primary Care Nurse Name: Beti Sparks RN Position: [facility] RN Member Role: Primary Care Nurse Name: Marge Bell RN Position: [facility] RN Member Role: Primary Care Nurse Name: Kiley Catherine LPN Position: [facility] RN Member Role: Primary Care Nurse Name: Monika Goodson Position: [facility] ED RN W/OE and Tasks Member Role: Patient Care Provider Name: Georgette Cardoso MD Position: [facility] Resident Member Role: Consulting Physician Address: Address: [address] [place] [id number]- [place] Name: Darby Pop Position: [facility] ED [facility] Member Role: Bore Miner Operator Name: Willis Mckinney MD Position: [facility] Resident Member Role: Admitting Physician Address: Address: [address] [place] [address] - Care Team Related Persons Name: VAISHALI LAWSON Address: home [address] [place] [address] Name: JALEESA CHAN Address: home [address] [place], [place]
--- NOTE | 2022-08-22 02:54 | ECG_ITS ---
Test Reason : FALL Blood Pressure : / mmHG Vent. Rate : 072 BPM Atrial Rate : 072 BPM P-R Int : 168 ms QRS Dur : 132 ms QT Int : 436 ms P-R-T Axes : 068 005 156 degrees QTc Int : 477 ms Normal sinus rhythm Left bundle branch block Abnormal ECG When compared with ECG of 17-AUG-2022 00:53, No significant change was found Referred By: Eli Caro Electronically Signed By:KENNETH EVANS
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
[2022-08-22 03:13] LABS: MANUAL DIFF FLAG NO
[2022-08-22 03:14] LABS: Basophils Percent Auto 0.7 % (0-2); Eosinophils Absolute Auto 0.3 X10*3/uL (0.0-0.4); Eosinophils Percent Auto 5.8 % (0-4); Hematocrit 31.2 % (42.0-52.0); Hemoglobin 10.3 g/dl (14.0-18.0); Imm Gran Abs Auto 0.01 X10*3/uL (0.00-0.03); Imm Gran Pct Auto 0.2 % (0.0-0.4); Lymphocytes Absolute Auto 1.1 X10*3/uL (1.2-4.9); Lymphocytes Percent Auto 26.2 % (20-40); Mean Corpuscular Hemoglobin 31.3 pg (27.0-33.0); Mean Corpuscular Volume 94.8 fL (80.0-98.0); Mean Platelet Volume 8.8 fL (9.4-12.4); Monocytes Absolute Auto 0.6 X10*3/uL (0.1-1.2); Monocytes Percent Auto 13.2 % (2-11); Neutrophils Absolute Auto 2.3 x10*3/uL (2.0-8.3); Neutrophils Percent Auto 53.9 % (45-73); Platelet Count 247 X10*3/uL (160-400); Red Blood Count 3.29 X10*6/uL (4.60-5.80); White Blood Count 4.3 X10*3/uL (4.8-10.8)
[2022-08-22 03:29] LABS: Alanine Aminotransferase 12 U/L (0-40); Albumin Level 3.8 g/dL (3.5-5.0); Alkaline Phosphatase 110 U/L (39-117); Anion Gap 12 (12-20); Aspartate Amino Transferase 30 U/L (5-37); Bilirubin Direct 0.2 mg/dL (0.0-0.5); Bilirubin Total 0.5 mg/dL (0.0-1.0); Blood Urea Nitrogen 23 mg/dL (9-16); Calcium 9.9 mg/dL (8.4-10.2); Carbon Dioxide 27 mmol/L (22-29); Chloride 107 mmol/L (96-108); Creatinine Clr Calc Pharmacy 88.7; Estimated Glomerular Filt Rate > 60; Glucose Random 93 mg/dL (60-115); Lipase 31 U/L (8-78); Potassium 4.3 mmol/L (3.3-5.1); Sodium 142 mmol/L (135-145); Total Protein 6.3 g/dL (6.5-8.0)
[2022-08-22 03:30] LABS: Ethanol < 10 mg/dL
[2022-08-22] MEDS: 0.9 % Sodium Chloride 500 ML 999 ML IV (03:51)
--- NOTE | 2022-08-22 08:56 | ECG_ITS ---
Test Reason : CP Blood Pressure : / mmHG Vent. Rate : 078 BPM Atrial Rate : 078 BPM P-R Int : 170 ms QRS Dur : 134 ms QT Int : 438 ms P-R-T Axes : 053 011 138 degrees QTc Int : 499 ms Normal sinus rhythm Left bundle branch block Abnormal ECG When compared with ECG of 22-AUG-2022 03:08, No significant change was found Referred By: Eli Caro Electronically Signed By:KENNETH EVANS
--- NOTE | 2022-08-22 08:57 | PC.NURSE ---
pt was sleeping , woke to have breakfast, then reported left sided cp ekg was obtained, pt in a nsr at 78bpm
[2022-08-22 09:25] LABS: Appearance Urine Clear; Color Urine Yellow; Glucose Urine UA Negative (Negative); Leukocyte Esterase Urine Negative (Negative); Nitrite Urine Negative (Negative); PH 6.5 (5.0-9.0); Specific Gravity - Urine 1.015 (1.005-1.025); Urine Blood Negative (Negative); Urine Ketones Negative (Negative); Urine Protein Negative (Neg-Trace)
[2022-08-22 09:27] LABS: Bacteria Urine None Seen (None Seen); Hyaline Casts Urine 0-2 /LPF (0-2); RBC Urine 0-2 /HPF (0-2); Squamous Epithelial Cell Urine 0-2 /HPF (0-2); WBC Urine 0-5 /HPF (0-5)
[2022-08-22 09:46] LABS: Troponin-I High Sensitivity 10.3 ng/L (<3.5-35.0)
--- NOTE | 2022-08-22 09:54 | PC.NURSE ---
reports very little change in his pain, remains in a nsr on the monitor, sleeping
[2022-08-22 13:03] LABS: Troponin-I High Sensitivity 11.2 ng/L (<3.5-35.0)
== END 2022-08-22 15:14 | disposition home or self-care (01) ==
PROVIDERS: Emergency Medicine; Emergency Provider Emergency Medicine Emergency Medical Services; PCP Internal Medicine
DX: S09.90XA Unspecified injury of head, initial encounter (principal); S00.81XA Abrasion of other part of head, initial encounter; T14.8XXA Other injury of unspecified body region, initial encounter; W19.XXXA Unspecified fall, initial encounter; R07.9 Chest pain, unspecified; I44.7 Left bundle-branch block, unspecified; Z79.82 Long term (current) use of aspirin; Z79.02 Long term (current) use of antithrombotics/antiplatelets; Z79.899 Other long term (current) drug therapy; Y93.89 Activity, other specified; Y92.410 Unspecified street and highway as the place of occurrence of the external cause; Y99.9 Unspecified external cause status
CPT/HCPCS: 36415; 70450; 71045; 71250; 72125; 73110; 73590; 74176; 80048; 80076; 80307; 81001; 83690; 84484; 85025; 93005; 96360; 99285

== ENCOUNTER 2022-08-22 22:54 | Emergency (ER) | payer MEDICARE, MEDICAID, SELFPAY ==
[2022-08-22 22:56] VITALS: BP 142/69; PULSE 83; RESP 16; TEMP 36.7; O2SAT 96; BMI 28.1
--- NOTE | 2022-08-23 00:07 | PC.NURSE ---
pt has a bandaid to his forhead and is dry and intact at this time. steady gait no s/s of distress.
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
[2022-08-23] MEDS: Silver Nitrate Applicator STICK..EA. 1 APPL TOPICAL (01:03)
== END 2022-08-23 01:10 | disposition home or self-care (01) ==
PROVIDERS: Emergency Provider Internal Medicine; PCP Internal Medicine
DX: S01.81XA Laceration without foreign body of other part of head, initial encounter (principal); X58.XXXA Exposure to other specified factors, initial encounter; Y93.9 Activity, unspecified; Y92.9 Unspecified place or not applicable; Y99.9 Unspecified external cause status; Z79.899 Other long term (current) drug therapy
CPT/HCPCS: 99282

== ENCOUNTER 2022-08-26 22:53 | Emergency (ER) | payer MEDICARE, MEDICAID, SELFPAY ==
--- NOTE | ~2022-08-26 | XR_ITS ---
EXAMINATION: XR CHEST CLINICAL INFORMATION: Weakness COMPARISON: 08/22/2022 TECHNIQUE: Frontal view of the chest was obtained. FINDINGS: Lung volumes are symmetric. No focal consolidation is seen. No evidence of pneumothorax, pleural effusion, or pulmonary edema. The cardiomediastinal contour is unremarkable. No acute osseous findings are seen. XR/XR chest 1V IMPRESSION: No acute cardiopulmonary findings.
--- NOTE | ~2022-08-26 | CT_ITS ---
EXAMINATION: CT HEAD WITHOUT CONTRAST CLINICAL INFORMATION: Left-sided weakness COMPARISON: 08/22/2022 TECHNIQUE: Contiguous axial imaging was performed from the skull base to vertex without intravenous administration of contrast. This CT examination was performed using dose optimization techniques as appropriate, variously including the following: *Automated exposure control *Adjustment of mA and/or kV according to patient size (this includes techniques or standardized protocols for targeted exams where dose is matched to indication/reason for exam; i.e. extremities or head) *Use of iterative reconstruction technique DLP: 712 mGy-cm FINDINGS: There is no evidence of acute intracranial hemorrhage or territorial infarction. No abnormal mass-effect or midline shift is seen. Glaser to white matter differentiation is well preserved. No extra-axial fluid collections are identified. The ventricles are normal in size. Mild volume loss is noted. The osseous structures and soft tissues are normal. Partially opacified posterior right ethmoid air cells. The mastoid air cells are well-aerated. CT/CT head/brain wo IV con IMPRESSION: No acute intracranial pathology.
[2022-08-26 22:58] VITALS: BP 110/54; PULSE 99; RESP 16; TEMP 36.7; O2SAT 94
--- NOTE | 2022-08-26 23:00 | MHC.EDTECH ---
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
[2022-08-26 23:07] VITALS: BP 145/76; BP 170/90; PULSE 70; PULSE 73; RESP 16; TEMP 37; O2SAT 100; O2SAT 99; BMI 24.1
[2022-08-27] VITALS (10 sets, daily range): BP systolic 133–160; BP diastolic 69–79; PULSE 62–70; RESP 12–18; TEMP 36.7–36.9; O2SAT 97–100
--- NOTE | 2022-08-27 00:09 | ECG_ITS ---
Test Reason : PAIN Blood Pressure : / mmHG Vent. Rate : 063 BPM Atrial Rate : 063 BPM P-R Int : 166 ms QRS Dur : 136 ms QT Int : 456 ms P-R-T Axes : 054 000 095 degrees QTc Int : 466 ms Normal sinus rhythm Left bundle branch block Abnormal ECG When compared with ECG of 22-AUG-2022 08:52, No significant change was found Referred By: Chris Brock Electronically Signed By:Pio Bazan
[2022-08-27 00:45] LABS: MANUAL DIFF FLAG NO
[2022-08-27 00:47] LABS: Basophils Percent Auto 0.7 % (0-2); Eosinophils Absolute Auto 0.3 X10*3/uL (0.0-0.4); Eosinophils Percent Auto 7.3 % (0-4); Hematocrit 30.7 % (42.0-52.0); Hemoglobin 10.2 g/dl (14.0-18.0); Imm Gran Abs Auto 0.03 X10*3/uL (0.00-0.03); Imm Gran Pct Auto 0.7 % (0.0-0.4); Mean Corpuscular HGB Conc 33.2 g/dl (31.0-36.0); Mean Corpuscular Hemoglobin 31.6 pg (27.0-33.0); Monocytes Absolute Auto 0.6 X10*3/uL (0.1-1.2); Monocytes Percent Auto 14.5 % (2-11); Neutrophils Absolute Auto 2.4 x10*3/uL (2.0-8.3); Neutrophils Percent Auto 53.8 % (45-73); Platelet Count 245 X10*3/uL (160-400); Red Blood Count 3.23 X10*6/uL (4.60-5.80); Red Cell Distribution Width 13.8 % (11.0-16.0); White Blood Count 4.4 X10*3/uL (4.8-10.8)
[2022-08-27 00:55] LABS: INTERNATIONAL NORM RATIO 1.1 (0.9-1.1); Prothrombin Time 12.4 SEC (10.0-13.1)
[2022-08-27 00:58] LABS: Partial Thromboplastin Time 30.1 SEC (26.0-36.4)
[2022-08-27] MEDS: 0.9 % Sodium Chloride 1,000 ML 999 ML IV (01:00)
[2022-08-27] MEDS: Meclizine HCl 25 MG TABLET PO (01:00)
[2022-08-27 01:04] LABS: Alanine Aminotransferase 12 U/L (0-40); Alkaline Phosphatase 113 U/L (39-117); Anion Gap 12 (12-20); Aspartate Amino Transferase 31 U/L (5-37); Blood Urea Nitrogen 27 mg/dL (9-16); Carbon Dioxide 26 mmol/L (22-29); Chloride 108 mmol/L (96-108); Creatinine Clr Calc Pharmacy 75.2; Estimated Glomerular Filt Rate > 60; Ethanol < 10 mg/dL; Glucose Random 90 mg/dL (60-115); Lipase 34 U/L (8-78); Potassium 4.3 mmol/L (3.3-5.1); Sodium 142 mmol/L (135-145); Total Protein 6.7 g/dL (6.5-8.0)
[2022-08-27 01:08] LABS: B Type Natriuretic Peptide 26 pg/mL (<100); Troponin-I High Sensitivity 8.1 ng/L (<3.5-35.0)
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
--- NOTE | 2022-08-27 08:17 | PC.NURSE ---
see paper documentation for down time charting
[2022-08-27 08:21] LABS: COVID-19 Test Negative (Negative); IDNOW Serial# 9DB6401D
--- NOTE | 2022-08-27 13:11 | MHC.CM.ED ---
Addendum entered by Tierra Riddle 08/27/22 14:22: [facility] doesn't have a bed. Referral broadcasted within 50 miles. Original Note: Received case management consult overnight. Patient is well known to CM due to previous admissions. Met with patient in regards to discharge planning. Patient is currently homeless and has been living in the streets, ambulates independently and had no services prior to coming to the ER. PCP verified. Copy of HCP verified to be on file. Patient received 3 Moderna vaccines. Covid swab is negative. Patient is agreeable to referral being broadcasted in [facility]. No bed offers at this time. [facility] Patient aware and agreeable. Waiting to hear from [facility] if they can offer a bed. Continue to monitor for d/c needs.
--- NOTE | 2022-08-27 14:01 | PHA.MEDREC ---
Pharmacy Consult ? Medication Reconciliation Pharmacy has completed the medication reconciliation. Spoke to patient to confirm meds. Patient states they've been taking metoprolol succ 75mg daily for months, although Rx is for BID.
[2022-08-27 14:25] LABS: Appearance Urine Clear; Color Urine Yellow; Glucose Urine UA Negative (Negative); Leukocyte Esterase Urine Negative (Negative); Nitrite Urine Negative (Negative); PH 5.5 (5.0-9.0); Specific Gravity - Urine 1.025 (1.005-1.025); Urine Blood Negative (Negative); Urine Ketones Negative (Negative); Urine Protein Negative (Neg-Trace)
[2022-08-27 14:28] LABS: Bacteria Urine None Seen (None Seen); Hyaline Casts Urine 0-2 /LPF (0-2); RBC Urine 0-2 /HPF (0-2); Squamous Epithelial Cell Urine 0-2 /HPF (0-2); WBC Urine 0-5 /HPF (0-5)
[2022-08-27 14:34] LABS: Amphetamine Screen Urine Not Detected (Not Detect); Barbiturates, Urine Not Detected (Not Detect); Benzodiazepines Screen Urine Not Detected (Not Detect); Cannabinoid Screen Urine Not Detected (Not Detect); Cocaine Screen Urine Not Detected (Not Detect); Fentanyl, urine Not Detected (Not Detect); Opiate Screen Urine Not Detected (Not Detect); Phencyclidine Screen Urine Not Detected (Not Detect)
--- NOTE | 2022-08-27 15:14 | PC.NURSE ---
report given to rn in overflow
--- NOTE | 2022-08-27 21:30 | MHC.CM.ED ---
[facility] following. No bed offers yet. following for discharge planning.
[2022-08-28 05:19] VITALS: BP 148/63; PULSE 70; RESP 19; TEMP 37.3; O2SAT 98
[2022-08-28 06:00] VITALS: BP 156/68; PULSE 69; RESP 18; TEMP 37.1; O2SAT 100
[2022-08-28] MEDS: Metoprolol Succinate ER 25 MG TAB.ER.24H 75 MG PO (09:13)
[2022-08-28] MEDS: Isosorbide Mononitrate 30 MG TAB.ER.24H PO (09:14)
[2022-08-28] MEDS: Furosemide 20 MG TABLET PO (09:15)
[2022-08-28] MEDS: Omeprazole 40 MG CAPSULE.DR PO ×2 (09:15→15:49)
[2022-08-28] MEDS: Sucralfate Oral Suspension 1 GM/10 ML ORAL.SUSP PO ×2 (09:16→14:33)
[2022-08-28] MEDS: Losartan Potassium 25 MG TABLET PO (09:16)
[2022-08-28] MEDS: Aspirin Enteric Coated 81 MG TABLET.DR PO (09:17)
--- NOTE | 2022-08-28 11:38 | MHC.CM.ED ---
Addendum entered by Tierra Riddle 08/28/22 15:41: [facility] is able to offer a bed. Patient accept. Patient will leave at 4pm. Deniz Booked. Med [facility] with chart. Patient, Dominic RN and Camryn HAYDEN aware. Original Note: Patient remains in ER overflow. No bed offers at this time. Referral broadcasted throughout the entire state [facility]. 219 referrals made. Continue to monitor for d/c needs.
[2022-08-28 14:00] VITALS: BP 126/54; PULSE 63; RESP 18; TEMP 36.9; O2SAT 98
[2022-08-28 15:40] VITALS: BP 131/64; PULSE 64; RESP 20; TEMP 36.8; O2SAT 97
[2022-08-28] MEDS: allopurinoL 100 MG TABLET PO (16:10)
--- NOTE | 2022-08-28 17:30 | PC.NURSE ---
Assumed care at 07:00. Patietn alert and oriented. Denied dizziness, denied chest pain. Patient breathing easy and regular on room air. Patient reported recently having swelling in his legs. None noted on inspection. LSCTA. Patient heartsounds somewhat distant, but S1, S2 present. Patient ambulating with steady gait. Discharted today to [facility] in [place]. Warm handover given to CATRACHO Whitley.
== END 2022-08-28 16:30 ==
PROVIDERS: Physician Assistant; Physician Assistant Medical; Emergency Provider Emergency Medicine Emergency Medical Services; PCP Internal Medicine
DX: R53.1 Weakness (principal); R42 Dizziness and giddiness; I25.10 Atherosclerotic heart disease of native coronary artery without angina pectoris; I10 Essential (primary) hypertension; I42.8 Other cardiomyopathies; I24.9 Acute ischemic heart disease, unspecified; Z79.899 Other long term (current) drug therapy; Z20.822 Contact with and (suspected) exposure to COVID-19
CPT/HCPCS: 36415; 70450; 71045; 80053; 80307; 81001; 83690; 83880; 84484; 85025; 85610; 85730; 87635; 93005; 96360; 97162; 99285

== ENCOUNTER 2022-09-13 22:40 | Emergency (ER) | payer MEDICARE, MEDICAID, SELFPAY ==
[2022-09-13 22:50] VITALS: BP 157/90; BP 178/92; PULSE 71; PULSE 81; RESP 16; TEMP 36.9; O2SAT 100; O2SAT 99; BMI 25.4
--- NOTE | 2022-09-13 23:05 | ED_ITS ---
HPI - Psych General Chief Complaint: Psychiatric Symptoms Stated Complaint: PSYCH Time Seen by Provider: 09/13/22 22:42 Source: patient Mode of arrival: EMS Limitations: no limitations History of Present Illness HPI Narrative: Patient comes to emergency room complaining of not feeling well, feeling very stressed. Patient states that he walked into a police Department station asking for help. Patient states that he is not suicidal or homicidal. Patient takes his medications as prescribed. However, patient states that he has trouble managing his stress, requesting to talk to [facility]. Related Data Home Medications Medication Instructions Recorded Confirmed allopurinol 100 mg tablet 100 mg PO DAILY@1700 08/07/21 08/27/22 isosorbide mononitrate 30 mg 30 mg PO DAILY@0800 08/07/21 08/27/22 tablet,extended release 24 hr losartan 25 mg tablet 25 mg PO DAILY@0800 08/07/21 08/27/22 metoprolol succinate 50 mg 75 mg PO DAILY@0800 08/07/21 08/27/22 tablet,extended release 24 hr acetaminophen 500 mg tablet 1,000 mg PO TID PRN pain 02/16/22 08/27/22 fluticasone propionate 50 1 spray intranasal DAILY PRN 05/16/22 08/27/22 mcg/actuation nasal Allergy Symptoms spray,suspension aspirin 81 mg tablet,delayed 81 mg PO DAILY 06/04/22 08/27/22 release atorvastatin 80 mg tablet 80 mg PO BEDTIME 06/04/22 08/27/22 omeprazole 40 mg capsule,delayed 40 mg PO BID 07/23/22 08/27/22 release sucralfate 100 mg/mL oral 10 ml PO QIDACHS 07/23/22 08/27/22 suspension (Carafate) furosemide 20 mg tablet 20 mg PO DAILY 08/27/22 08/27/22 Allergies Allergy/AdvReac Type Severity Reaction Status Date / Time polyethylene glycol Allergy Itching Verified 07/23/22 16:49 Iodinated Contrast Media AdvReac Severe PARALYSIS/N Verified 08/28/22 09:12 [CONTRAST, IV] UMBNESS Review of Systems Review of Systems: Constitutional : No Weight loss, No Fever, No Chills, No Night Sweats, No Fatigue, No Malaise ENT/Mouth : No Hearing loss, No Ear Pain, No Nasal Congestion, No Sinus Pain, No Hoarseness, No sore throat, No Rhinorrhea, No Swallowing Difficulty Eyes: No Eye Pain, No Swelling, No Redness, No Foreign Body, No Discharge, No Vision Changes Cardiovascular : No Chest Pain, No SOB, No Dyspnea on Exertion, No Orthopnea, No Edema, No Palpitations Respiratory : No Cough, No Sputum, No Wheezing, No Smoke Exposure, No Dyspnea Gastrointestinal : No Nausea, No Vomiting, No Diarrhea, No Constipation, No abdominal Pain, No Hematochezia, No Melena Genitourinary : no irregular bleeding, No Dysuria, No Urinary Frequency, No Hematuria, No Urinary Incontinence, No Urgency, No Flank Pain, No Urinary Flow Changes, No Hesitancy Musculoskeletal : No joint pain, No Myalgias, No Joint Swelling Skin : No Skin Lesions, No rash Neuro : No Weakness, No Numbness, No Paresthesias, No Loss of Consciousness, No Dizziness, No Headache Psych : Complaining of anxiety/depression No SI/HI/AH/VH, No Social Issues, Heme/Lymph: No Bruising, No Bleeding,No Lymphadenopathy Endocrine : No Polyuria, No Polydipsia, No Temperature Intolerance [facility] Past Medical History Medical History Airway polyps Atypical chest pain Chest pain Coronary artery disease Gout Hypertension Incarcerated left inguinal hernia Ischemic heart disease due to coronary artery obstruction Left bundle branch block Left bundle branch block NICM (nonischemic cardiomyopathy) No known health problems Peptic ulcer disease Syncope Surgical History H/O heart artery stent History of partial gastrectomy Family History Family History Father Myocardial infarction Social History Social History Household Members: Other Household Members Other:: with friends, staying with friends Housing: Other Housing Other:: staying with a friend and financial assistance to find a hotel room Do you presently have visiting nurse or other home services: No Alcohol intake: current Alcohol intake frequency: does not drink Patient Tobacco Use Status: Never used Tobacco Smoked in Last 30 Days: No Second Hand Smoke Exposure: Yes (friends he stays with smoke outside) Use of substances other than those prescribed or required for medical reasons: Yes Advance Directives: Yes Advance Directives on File: Yes Advance Directives Date on File: 05/20/22 service: No Current occupational status: unemployed Physical Exam Vital Signs: Vital Signs: Last Vital Signs Temp 98.5 F 09/13/22 22:50 Pulse 71 09/13/22 22:50 Resp 16 09/13/22 22:50 BP 178/92 H 09/13/22 22:50 Pulse Ox 100 09/13/22 22:50 O2 Del Method Room Air 09/13/22 22:50 BMI result Body Mass Index 25.4 Const: Other: Appearance: Alert. Oriented X3. No acute distress. Eyes: Pupils equal, round and reactive to light. ENT: Pharynx normal. Neck: Normal inspection. Neck supple. No lymph nodes noted. No crepitus CVS: Normal heart rate and rhythm. Pulses normal. Normal S1 and S2 Respiratory: No respiratory distress. Breath sounds normal. No Wheezing. No rales Abdomen: Soft and nontender. No rigidity. No distention. Skin: Skin warm and dry. Normal skin color. Normal skin turgor. Extremities: No lower extremity edema. No Lacerations. No Rash Neuro: Oriented X 3. No motor deficit. No sensory deficit. Moving all extremities. No slurred speech. CN 2 through 12 grossly intact Psych: calm, cooperative, normal affect, coherent Course Course Course Narrative: -all of patient's labs are pending -care team consult pending -patient is not suicidal or homicidal, Section 12 not indicated -physician observe patient started at 23:00 Medical Decision Making Medical Decision Making MDM Narrative: -patient waiting to be seen by the care team, observation considered Differential Diagnosis Differential Diagnoses: The differential diagnosis associated with the presentation includes (Anxiety, depression, substance abuse) Admission/Observation Consideration of admission/observation: Escalation of care including admission/observation considered Lab Data 09/13/22 23:56 09/13/22 23:56 Labs: Lab Results 09/13/22 09/13/22 09/14/22 Range/Units 23:56 23:56 00:06 WBC 4.1 L (4.8-10.8) X10*3/uL RBC 3.55 L (4.60-5.80) X10*6/uL Hgb 11.2 L (14.0-18.0) g/dl Hct 34.0 L (42.0-52.0) % MCV 95.8 (80.0-98.0) fL MCH 31.5 (27.0-33.0) pg MCHC 32.9 (31.0-36.0) g/dl RDW 13.9 (11.0-16.0) % Plt Count 210 (160-400) X10*3/uL MPV 9.6 (9.4-12.4) fL Immature Gran % (Auto) 0.0 (0.0-0.4) % Neut % (Auto) 48.8 (45-73) % Lymph % (Auto) 28.2 (20-40) % [place] % (Auto) 13.3 H (2-11) % Eos % (Auto) 9.0 H (0-4) % Baso % (Auto) 0.7 (0-2) % Lymph # (Auto) 1.2 (1.2-4.9) X10*3/uL [place] # (Auto) 0.6 (0.1-1.2) X10*3/uL Eos # (Auto) 0.4 (0.0-0.4) X10*3/uL Baso # (Auto) 0.0 (0.0-0.2) X10*3/uL Abs Immat Gran (auto) 0.00 (0.00-0.03) X10*3/uL Absolute Neuts (auto) 2.0 (2.0-8.3) x10*3/uL Absolute Nucleated RBC 0.000 (0.0-0.012) X10*3/uL Nucleated RBC % (auto) 0.0 (0.0-0.2) /100WBC Sodium 142 (135-145) mmol/L Potassium 4.4 (3.3-5.1) mmol/L Chloride 108 (96-108) mmol/L Carbon Dioxide 24 (22-29) mmol/L Anion Gap 14 (12-20) BUN 18 H (9-16) mg/dL Creatinine 1.00 (0.5-1.4) mg/dL Estim Creat Clear Calc 73.0 Estimated GFR > 60 Random Glucose 126 H (60-115) mg/dL Calcium 9.8 (8.4-10.2) mg/dL Total Bilirubin 0.5 (0.0-1.0) mg/dL Direct Bilirubin 0.2 (0.0-0.5) mg/dL AST 53 H (5-37) U/L ALT 97 H (0-40) U/L Alkaline Phosphatase 183 H (39-117) U/L Total Protein 6.9 (6.5-8.0) g/dL Albumin 4.3 (3.5-5.0) g/dL Urine Color Yellow Urine Appearance Clear Urine pH 5.5 (5.0-9.0) Ur Specific [place] 1.010 (1.005-1.025) Urine Protein Negative (Neg-Trace) mg/dL Urine Glucose (UA) Negative (Negative) mg/dL Urine Ketones Negative (Negative) mg/dL Urine Blood Trace H (Negative) Urine Nitrite Negative (Negative) Ur Leukocyte Esterase Negative (Negative) Discharge Plan Discharge Clinical Impression: Anxiety and depression Patient Disposition: Still a Patient Prescriptions: No Action acetaminophen 500 mg tablet 1,000 mg PO TID PRN (Reason: pain) fluticasone propionate 50 mcg/actuation [place],Suspension 1 spray INTRANASAL DAILY PRN (Reason: Allergy Symptoms) Rx Instructions: administer into each nostril allopurinol 100 mg Tablet 100 mg PO DAILY@1700 losartan 25 mg Tablet 25 mg PO DAILY@0800 isosorbide mononitrate 30 mg Tablet Extended Release 24 Hr 30 mg PO DAILY@0800 metoprolol succinate 50 mg Tablet Extended Release 24 Hr 75 mg PO DAILY@0800 atorvastatin 80 mg tablet 80 mg PO BEDTIME aspirin 81 mg tablet,delayed release (DR/EC) 81 mg PO DAILY sucralfate [Carafate] 100 mg/mL suspension 10 ml PO QIDACHS omeprazole 40 mg capsule,delayed release(DR/EC) 40 mg PO BID furosemide 20 mg tablet 20 mg PO DAILY Interventions: [place]-Suicide Risk Severity Scale Last Done: 09/13/22 23:00
--- OUTSIDE RECORDS SUMMARY | 2022-09-13 23:20 | XMS_ITS | Continuity of Care Document ---
Author Name Unknown Organization 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 [address] [place] [id number]- Attending Physician: Analy Conway Admitting Physician: Analy [...] 05/13/22 8:31:00 EDT, Route to Pharmacy Electronically, [facility], Partial fill upon patient request if the prescription is for a philomena... Start Date: 05/13/22 Status: Ordered aspirin 81 mg oral delayed release tablet 81 mg, 1, tablet, By Mouth, Daily, # 30 tablet, Refills 0, Tot. Refills 0, Maintenance, 05/13/22 8:31:00 EDT, Route to Pharmacy Electronically, [facility], Partial fill upon patient request if the prescription is for a schedule II opioid... Start Date: 05/13/22 Status: Ordered atorvastatin 80 mg oral tablet 1 tablet = 80 mg, By Mouth, Daily, # 30 tablet, 5 Refills, Maintenance, 05/13/22 8:31:00 EDT, Tablet, [facility], Partial fill upon patient request if the prescription is for a scheduleII opioid drug., 179, cm, 05/13/22 7:32:00 EDT, Hei... Start Date: 05/13/22 Status: Ordered Carafate 1 gm/10 ml oral suspension 10 mL = 1 Gm, By Mouth, 3 times a day before meals and bedtime, # 1,200 mL, 1 Refills, Maintenance,07/01/22 8:49:00 EDT, [facility], Partial fill upon patient request if the prescription is for a schedule II opioid drug., 178, cm, 07/01... Start Date: 07/01/22 Status: Ordered Flonase 50 mcg/inh nasal spray 1 sprays, Nares, Both, 2 times a day, PRN Nasal Congestion, 0 Refills, Maintenance, 06/20/22 2:12:00 EDT, [place], Partial fill upon patient request if the prescription is for a schedule II opioid drug. Start Date: 06/20/22 Status: Ordered isosorbide mononitrate 30 mg oral tablet, extended release 1 tablet = 30 mg, By Mouth, Daily in AM, # 30 tablet, 0 Refills, Maintenance, 05/13/22 8:31:00 EDT,ER Tablet, [facility], Partial fill upon patient request if the prescription is for aschedule II opioid drug., 179, cm, 05/13/22 7:32:00... Start Date: 05/13/22 Status: Ordered losartan 25 mg oral tablet 25 mg, 1, tablet, By Mouth, Daily, # 30 tablet, Refills 0, Tot. Refills 0, Maintenance, 05/13/22 8:31:00 EDT, Route to Pharmacy Electronically, [facility], Partial fill upon patient request if the prescription is for a schedule II opioid... Start Date: 05/13/22 Status: Ordered metoprolol 50 mg oral tablet, extended release 50 mg, 1, tablet, By Mouth, Daily in AM, # 30 tablet, Refills 2, Tot. Refills 2, Maintenance, 05/13/22 8:31:00 EDT, Route to Pharmacy Electronically, [facility], Partial fill upon [...] Refills, Maintenance, 07/01/22 8:50:00 EDT, EC Capsule, [facility], Partial fill upon [...] Confirmed Active Episode of syncope Confirmed Active Social History Social History Type Response Smoking Status Never (less than 100 in lifetime) entered on: 10/21/19 Sex Implantable Device List Procedure Provider Procedure Date Device Type Site Repair Hernia Inguinal Laparoscopic Charan Mckeon MD 06/24/21 Unknown Groin Right Device Identifier Serial Number Lot or Batch Number Manufacturing Date Expiration Date Distinct Identification Code MRI Safety Implantable Status Assigning Authority [id number] Unknown [id number] Unknown 12/26/25 Unknown Unknown Active GS1 Procedure Provider Procedure Date Device Type Site Repair Hernia Inguinal Laparoscopic Charan Mckeon MD 06/24/21 Unknown Groin Left Device Identifier Serial Number Lot or Batch Number Manufacturing Date Expiration Date Distinct Identification Code MRI Safety Implantable Status Assigning Authority [id number] Unknown Unknown Unknown 04/28/25 Unknown Unknown Active GS1 Patient Care team information Care Team Personnel Name: Rosmery Bonds RN Position: S RN Member Role: Primary Care Nurse Name: Jolynn Bhatti RN Position: [facility] RN Member Role: Primary Care Nurse Name: Petty Hines RN Position: [facility] RN Member Role: Primary Care Nurse Name: Naseem Alford MD Position: [facility] Outreach Member Role: PCP Address: Address: [address] [place] [address]- Name: Heather Garrett RN Position: [facility] RN Member Role: Primary Care Nurse Name: Tila Stock RN Position: [facility] RN Member Role: Primary Care Nurse Name: Roberta Noel RN Position: [facility] RN Member Role: Primary Care Nurse Name: Grace Almanzar RN Position: [facility] RN Member Role: Primary Care Nurse Name: Mercedez Zuniga RN Position: [facility] RN Member Role: Primary Care Nurse Name: Franco Sanchez RN Position: [facility] RN Member Role: Primary Care Nurse Name: Nathaly Zimmer RN Position: [facility] RN Member Role: Primary Care Nurse Name: Natalie Carmichael RN Position: [facility] RN Member Role: Primary Care Nurse Name: Romina Delarosa RN Position: [facility] RN Member Role: Primary Care Nurse Name: Georgette Mesa RN Position: [facility] RN Member Role: Primary Care Nurse Name: Beti Sparks RN Position: [facility] RN Member Role: Primary Care Nurse Name: Marge Bell RN Position: [facility] RN Member Role: Primary Care Nurse Name: Kiley Catherine LPN Position: [facility] RN Member Role: Primary Care Nurse Care Team Related Persons Name: VAISHALI LAWSON Address: [address] [place] [address] Name: JALEESA CHAN Address: home [address] [place] [address]
[2022-09-14 00:03] LABS: MANUAL DIFF FLAG NO
[2022-09-14 00:07] LABS: Basophils Percent Auto 0.7 % (0-2); Eosinophils Absolute Auto 0.4 X10*3/uL (0.0-0.4); Hemoglobin 11.2 g/dl (14.0-18.0); Lymphocytes Absolute Auto 1.2 X10*3/uL (1.2-4.9); Lymphocytes Percent Auto 28.2 % (20-40); Mean Corpuscular HGB Conc 32.9 g/dl (31.0-36.0); Mean Corpuscular Hemoglobin 31.5 pg (27.0-33.0); Mean Corpuscular Volume 95.8 fL (80.0-98.0); Mean Platelet Volume 9.6 fL (9.4-12.4); Monocytes Absolute Auto 0.6 X10*3/uL (0.1-1.2); Monocytes Percent Auto 13.3 % (2-11); Neutrophils Percent Auto 48.8 % (45-73); Platelet Count 210 X10*3/uL (160-400); Red Blood Count 3.55 X10*6/uL (4.60-5.80); Red Cell Distribution Width 13.9 % (11.0-16.0); White Blood Count 4.1 X10*3/uL (4.8-10.8)
[2022-09-14 00:13] LABS: Appearance Urine Clear; Color Urine Yellow; Glucose Urine UA Negative (Negative); Leukocyte Esterase Urine Negative (Negative); Nitrite Urine Negative (Negative); PH 5.5 (5.0-9.0); UMIC TRIGGER UACC YES; Urine Blood Trace (Negative); Urine Ketones Negative (Negative); Urine Protein Negative (Neg-Trace)
[2022-09-14 00:19] LABS: Alanine Aminotransferase 97 U/L (0-40); Albumin Level 4.3 g/dL (3.5-5.0); Alkaline Phosphatase 183 U/L (39-117); Anion Gap 14 (12-20); Aspartate Amino Transferase 53 U/L (5-37); Bilirubin Direct 0.2 mg/dL (0.0-0.5); Bilirubin Total 0.5 mg/dL (0.0-1.0); Blood Urea Nitrogen 18 mg/dL (9-16); Calcium 9.8 mg/dL (8.4-10.2); Carbon Dioxide 24 mmol/L (22-29); Chloride 108 mmol/L (96-108); Estimated Glomerular Filt Rate > 60; Glucose Random 126 mg/dL (60-115); Potassium 4.4 mmol/L (3.3-5.1); Sodium 142 mmol/L (135-145); Total Protein 6.9 g/dL (6.5-8.0)
[2022-09-14 00:20] LABS: Bacteria Urine None Seen (None Seen); Hyaline Casts Urine 0-2 /LPF (0-2); Squamous Epithelial Cell Urine 0-2 /HPF (0-2); WBC Urine 0-5 /HPF (0-5)
[2022-09-14 00:21] LABS: Ethanol < 10 mg/dL
[2022-09-14 00:27] LABS: Amphetamine Screen Urine Not Detected (Not Detect); Barbiturates, Urine Not Detected (Not Detect); Benzodiazepines Screen Urine Not Detected (Not Detect); Cannabinoid Screen Urine Not Detected (Not Detect); Cocaine Screen Urine Not Detected (Not Detect); Fentanyl, urine Not Detected (Not Detect); Opiate Screen Urine Not Detected (Not Detect); Phencyclidine Screen Urine Not Detected (Not Detect)
--- NOTE | 2022-09-14 06:03 | PC.NURSE ---
pt slept during the shift
--- NOTE | 2022-09-14 07:21 | PC.NURSE ---
patient appears to remain asleep at present respirations are even and unlabored patient appears in no distress.
== END 2022-09-14 11:28 | disposition home or self-care (01) ==
PROVIDERS: Emergency Provider Emergency Medicine; PCP Internal Medicine
DX: F33.1 Major depressive disorder, recurrent, moderate (principal); D64.9 Anemia, unspecified; R31.29 Other microscopic hematuria; F41.1 Generalized anxiety disorder; F43.0 Acute stress reaction; I25.10 Atherosclerotic heart disease of native coronary artery without angina pectoris; Z79.899 Other long term (current) drug therapy
CPT/HCPCS: 36415; 80048; 80076; 80307; 81001; 85025; 99284

== ENCOUNTER 2022-09-15 19:52 | Emergency (ER) | payer MEDICARE, MEDICAID, SELFPAY ==
--- NOTE | ~2022-09-15 | XR_ITS ---
EXAMINATION: XR CHEST CLINICAL INFORMATION: Shortness of breath and chest pain. COMPARISON: Chest radiograph 08/27/2022. TECHNIQUE: Frontal view of the chest was obtained. FINDINGS: Normal appearance of the cardiomediastinal silhouette. No focal airspace opacity, pleural effusion or pneumothorax. Redemonstration of mid and left upper abdominal surgical clips. No acute osseous findings. XR/XR chest 1V IMPRESSION: No acute cardiopulmonary findings.
--- NOTE | 2022-09-15 20:15 | ECG_ITS ---
Test Reason : CHEST PAIN Blood Pressure : / mmHG Vent. Rate : 066 BPM Atrial Rate : 066 BPM P-R Int : 172 ms QRS Dur : 140 ms QT Int : 472 ms P-R-T Axes : 050 003 081 degrees QTc Int : 494 ms Normal sinus rhythm Left bundle branch block Abnormal ECG When compared with ECG of 27-AUG-2022 00:29, Nonspecific T wave abnormality no longer evident in Inferior leads T wave inversion less evident in Lateral leads Referred By: Alba Singh Electronically Signed By:Pio Bazan
[2022-09-15 20:21] VITALS: BP 145/67; BP 155/64; PULSE 73; PULSE 75; RESP 16; O2SAT 100; BMI 27.2
[2022-09-15 20:26] VITALS: BP 155/64; PULSE 68; PULSE 75; RESP 16; O2SAT 100
[2022-09-15 21:01] LABS: Basophils Percent Auto 0.6 % (0-2); Eosinophils Absolute Auto 0.4 X10*3/uL (0.0-0.4); Eosinophils Percent Auto 8.2 % (0-4); Hemoglobin 10.4 g/dl (14.0-18.0); Imm Gran Abs Auto 0.01 X10*3/uL (0.00-0.03); Imm Gran Pct Auto 0.2 % (0.0-0.4); Lymphocytes Absolute Auto 1.2 X10*3/uL (1.2-4.9); MANUAL DIFF FLAG NO; Mean Corpuscular HGB Conc 32.5 g/dl (31.0-36.0); Mean Corpuscular Volume 95.2 fL (80.0-98.0); Mean Platelet Volume 9.2 fL (9.4-12.4); Monocytes Absolute Auto 0.6 X10*3/uL (0.1-1.2); Monocytes Percent Auto 12.7 % (2-11); Neutrophils Absolute Auto 2.6 x10*3/uL (2.0-8.3); Neutrophils Percent Auto 53.3 % (45-73); Platelet Count 215 X10*3/uL (160-400); Red Blood Count 3.36 X10*6/uL (4.60-5.80); Red Cell Distribution Width 13.9 % (11.0-16.0); White Blood Count 4.9 X10*3/uL (4.8-10.8)
[2022-09-15 21:12] LABS: Prothrombin Time 11.8 SEC (10.0-13.1)
[2022-09-15 21:15] LABS: Alanine Aminotransferase 61 U/L (0-40); Albumin Level 4.1 g/dL (3.5-5.0); Alkaline Phosphatase 154 U/L (39-117); Anion Gap 13 (12-20); Aspartate Amino Transferase 39 U/L (5-37); Bilirubin Total 0.4 mg/dL (0.0-1.0); Blood Urea Nitrogen 23 mg/dL (9-16); Calcium 9.8 mg/dL (8.4-10.2); Carbon Dioxide 24 mmol/L (22-29); Chloride 107 mmol/L (96-108); Creatinine Clr Calc Pharmacy 76.8; Estimated Glomerular Filt Rate > 60; Glucose Random 122 mg/dL (60-115); Sodium 140 mmol/L (135-145); Total Protein 6.8 g/dL (6.5-8.0)
[2022-09-15 21:19] LABS: B Type Natriuretic Peptide 44 pg/mL (<100)
[2022-09-15 21:22] LABS: Troponin-I High Sensitivity 4.3 ng/L (<3.5-35.0)
[2022-09-15 21:23] LABS: Venous Blood Gas Refer to POC result
[2022-09-15 21:24] LABS: VBG Base Excess 2.5 mmol/L; VBG HCO3 27 mmol/L (22-26); VBG pCO2 43 mmHg; VBG pO2 55 mmHg
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
[2022-09-15 22:00] VITALS: BP 120/59; PULSE 59; RESP 15; TEMP 36.6; O2SAT 99
[2022-09-16] VITALS (11 sets, daily range): BP systolic 111–191; BP diastolic 54–89; PULSE 49–62; RESP 12–24; TEMP 36.1–36.8; O2SAT 96–100
[2022-09-16] MEDS: Ketorolac Tromethamine 15 MG/ML VIAL IM (04:41)
--- NOTE | 2022-09-16 04:48 | PC.NURSE ---
Pt requested pain medication for a pain in his chest, radiating to his abdomen. Pt vitals WNL on monitor, pt ia A&Ox4, GCS 15. Dr Delgadillo verbal ordered PO oxycodone. Pt requested something less strong. IM toradol was ordered and administered. Pt is resting comfortably at this time.
--- NOTE | 2022-09-16 07:28 | PC.NURSE ---
Pt currently sleeping, no apparent pain or discomfort noted.
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
--- NOTE | 2022-09-16 14:33 | ECG_ITS ---
Test Reason : sob cp Blood Pressure : / mmHG Vent. Rate : 052 BPM Atrial Rate : 052 BPM P-R Int : 166 ms QRS Dur : 138 ms QT Int : 500 ms P-R-T Axes : 052 010 030 degrees QTc Int : 465 ms Sinus bradycardia Left bundle branch block Abnormal ECG When compared with ECG of 15-SEP-2022 20:58, T wave inversion now evident in Inferior leads Referred By: Alee Lopez Electronically Signed By:Pio Bazan
[2022-09-16] MEDS: Morphine Sulfate Immed Release 15 MG TABLET PO (16:12)
[2022-09-16 19:59] LABS: Troponin-I High Sensitivity 6.3 ng/L (<3.5-35.0)
--- NOTE | 2022-09-16 20:20 | PC.NURSE ---
Assumed care at 14:45. Patient alert and oriented. Still reporting 10/10 chest pain sternal area and left chest, radiates to his stomach and back. No meds ordered yet. Breathing is easy and regular, no nonverbal signs of pain except his hypertension. Discussed with CERTIFIED SCRUB TECH, new orders for IV morphine, EKG, and repeat troponins; patient difficult stick, numerous tries by numerous techs and RNs, unable to get lab, encouraged PO fluids, discussed with provider, changed pain medication to PO morphine, administered with good effect, pain reported down to 8/10, PA notified. Oncoming RN obtained IV access and troponins, pending. EKG was taken and reviewed by provider as no changes, and does have some ST/T wave elevation apparent in V1, V2, V3 that has been present on previous EKGs, PA aware. Patient arrived with hypertension BP 180/89 on arrival with HR in 50's, PA notified, not on telemetry, PA aware. Patient with distant heart sounds and clear lung sounds. No diet was ordered, discussed with CERTIFIED SCRUB TECH, cardiac diet odered per CERTIFIED SCRUB TECH. Home medications and med req pending, including BP meds, PA and pharmacy aware.
[2022-09-16] MEDS: Metoprolol Succinate ER 50 MG TAB.ER.24H PO (20:43)
[2022-09-16] MEDS: Metoprolol Succinate ER 25 MG TAB.ER.24H PO (20:44)
[2022-09-16] MEDS: Atorvastatin Calcium 80 MG TABLET PO (20:44)
[2022-09-16] MEDS: Omeprazole 40 MG CAPSULE.DR PO (20:46)
[2022-09-16] MEDS: Sucralfate Oral Suspension 1 GM/10 ML ORAL.SUSP PO (20:49)
--- NOTE | 2022-09-16 20:50 | PC.NURSE ---
patient received in bed with eyes open patient vitals are being monitored patient was administered a 18g gauge saline lock in the left upper arm patient received all medications with no issues patient had no complaints at this time patient encouraged to reach out to staff if any issues should occur safety was maintained
[2022-09-17 03:17] VITALS: BP 140/65; PULSE 49
[2022-09-17] MEDS: Omeprazole 40 MG CAPSULE.DR PO ×2 (05:24→17:27)
[2022-09-17 05:45] VITALS: BP 141/60; PULSE 59; RESP 18; TEMP 36.6; O2SAT 98
[2022-09-17 08:35] VITALS: BP 152/65; PULSE 68; RESP 18; TEMP 36.7; O2SAT 98
[2022-09-17] MEDS: Isosorbide Mononitrate 30 MG TAB.ER.24H PO (08:38)
[2022-09-17] MEDS: Metoprolol Succinate ER 25 MG TAB.ER.24H PO (08:39)
[2022-09-17] MEDS: Aspirin Enteric Coated 81 MG TABLET.DR PO (08:39)
[2022-09-17] MEDS: Metoprolol Succinate ER 50 MG TAB.ER.24H PO (08:39)
[2022-09-17] MEDS: Losartan Potassium 25 MG TABLET PO (08:54)
[2022-09-17] MEDS: Sucralfate Oral Suspension 1 GM/10 ML ORAL.SUSP PO ×2 (08:55→18:28)
[2022-09-17 14:00] VITALS: BP 106/67; PULSE 64; RESP 12; O2SAT 97
[2022-09-17] MEDS: allopurinoL 100 MG TABLET PO (17:27)
--- NOTE | 2022-09-17 18:03 | MHC.EDTECH ---
PT showering. Bed linens changed.
[2022-09-17] MEDS: Atorvastatin Calcium 80 MG TABLET PO (20:40)
[2022-09-17 20:43] VITALS: BP 123/50; PULSE 55; RESP 15; TEMP 36.8; O2SAT 98
[2022-09-18 04:37] VITALS: BP 135/64; PULSE 87; RESP 17; TEMP 36.3; O2SAT 98
[2022-09-18] MEDS: Isosorbide Mononitrate 30 MG TAB.ER.24H PO (07:56)
[2022-09-18] MEDS: Losartan Potassium 25 MG TABLET PO (07:56)
[2022-09-18] MEDS: Sucralfate Oral Suspension 1 GM/10 ML ORAL.SUSP PO (07:56)
[2022-09-18] MEDS: Metoprolol Succinate ER 25 MG TAB.ER.24H PO (07:57)
[2022-09-18] MEDS: Aspirin Enteric Coated 81 MG TABLET.DR PO (07:57)
[2022-09-18] MEDS: Furosemide 20 MG TABLET PO (07:57)
[2022-09-18] MEDS: Metoprolol Succinate ER 50 MG TAB.ER.24H PO (07:57)
[2022-09-18 08:54] VITALS: BP 147/67; PULSE 71; RESP 18; TEMP 36.6; O2SAT 99
--- NOTE | 2022-09-18 09:41 | MHC.CM.ED ---
Addendum entered by Tierra Riddle 09/18/22 09:50: Officer Robin will be in ER around 10am to transport patient to [facility]. Ellen HAYDEN and Rod GAMEZ aware. Original Note: Patient remains in ER overflow. Per Robina of Care Team patient is not inpatient psych approp. Officer Robin made aware and will speak to the Public Health nurse about process of transporting patient to [facility]. Continue to monitor for d/c needs.
[2022-09-18 10:21] VITALS: BP 169/80; PULSE 64; RESP 18; TEMP 36.6; O2SAT 99
== END 2022-09-18 10:39 | disposition home or self-care (01) ==
PROVIDERS: Physician Assistant; Emergency Provider Student in an Organized Health Care Education/Training Program
DX: R55 Syncope and collapse (principal); R07.89 Other chest pain; R51.9 Headache, unspecified; R06.02 Shortness of breath; Z79.899 Other long term (current) drug therapy
CPT/HCPCS: 36415; 71045; 80053; 82803; 83880; 84484; 85025; 85610; 93005; 99285; J1885

== ENCOUNTER → 2022-09-15 20:15 | Outpatient (BNV) | payer MEDICARE, MEDICAID, SELFPAY | PROVIDERS: Emergency Provider Student in an Organized Health Care Education/Training Program; Visit Provider Internal Medicine Cardiovascular Disease | DX: R94.31 Abnormal electrocardiogram [ECG] [EKG] (principal) | CPT/HCPCS: 93010 ==

== ENCOUNTER → 2022-09-16 14:33 | Outpatient (BNV) | payer MEDICARE, MEDICAID, SELFPAY | PROVIDERS: Emergency Provider Student in an Organized Health Care Education/Training Program; Visit Provider Internal Medicine Cardiovascular Disease | DX: R00.1 Bradycardia, unspecified (principal) | CPT/HCPCS: 93010 ==

== ENCOUNTER 2022-09-19 20:03 | Emergency (ER) | payer MEDICARE, MEDICAID, SELFPAY ==
--- NOTE | ~2022-09-19 | XR_ITS ---
EXAMINATION: XR CHEST CLINICAL INFORMATION: Shortness of breath. COMPARISON: Chest radiograph 09/15/2022. TECHNIQUE: 2 views of the chest were obtained. FINDINGS: Stable appearance of the cardiomediastinal silhouette. Increased diffuse interstitial thickening. No pleural effusion or pneumothorax. No acute osseous findings. Redemonstration of surgical clips in the left upper quadrant. XR/XR chest 2V IMPRESSION: Increased interstitial thickening compared to 09/15/2022, nonspecific but suggestive of an atypical infectious/inflammatory process such as viral pneumonia.
[2022-09-19 20:15] VITALS: BP 120/70; BP 154/78; PULSE 62; PULSE 90; RESP 12; TEMP 36.8; O2SAT 97; O2SAT 99; BMI 25.1
--- NOTE | 2022-09-19 20:19 | ECG_ITS ---
Test Reason : CP Blood Pressure : / mmHG Vent. Rate : 061 BPM Atrial Rate : 061 BPM P-R Int : 166 ms QRS Dur : 136 ms QT Int : 480 ms P-R-T Axes : 049 -06 074 degrees QTc Int : 483 ms Normal sinus rhythm Left bundle branch block Abnormal ECG When compared with ECG of 16-SEP-2022 14:53, No significant change was found Referred By: Generic ED Physician Electronically Signed By:Pio Bazan
[2022-09-19 20:33] LABS: MANUAL DIFF FLAG NO
--- NOTE | 2022-09-19 20:33 | ED_ITS ---
HPI - Chest Pain General Chief Complaint: Chest Pain Stated Complaint: Chest pain w/ exertion Time Seen by Provider: 09/19/22 20:33 Source: patient and EMS Mode of arrival: EMS Limitations: no limitations History of Present Illness HPI narrative: Patient is a 67 year old assigned male at with a history of CAD presenting to the emergency department today with chest pain. Patient states that he continues to have chest pain that he has been seen for this pain on 09/15/2022 as well. Patient denies any dizziness, lightheadedness, abdominal pain, nausea, vomiting, fever, chills, blurry vision, double vision, loss of vision, difficulty breathing, shortness of breath, back pain, night sweats, pain with urination, increased urinary frequency, increased urinary urgency, blood in his urine or stool, syncope or a near syncopal episode, recent trauma or falls, bowel incontinence, bladder incontinence, bowel retention, bladder retention, or any other complaints at this time. MD complaint: chest pain Pertinent past history: coronary artery disease Onset (ago): day(s) Prior episodes: Yes Severity: mild Quality: aching Relieving factors: nothing Exacerbating factors: nothing Related Data Home Medications Medication Instructions Recorded Confirmed allopurinol 100 mg tablet 100 mg PO DAILY@1700 08/07/21 09/16/22 isosorbide mononitrate 30 mg 30 mg PO DAILY@0800 08/07/21 09/16/22 tablet,extended release 24 hr losartan 25 mg tablet 25 mg PO DAILY@0800 08/07/21 09/16/22 metoprolol succinate 50 mg 50 mg PO BID 08/07/21 09/16/22 tablet,extended release 24 hr fluticasone propionate 50 1 spray intranasal DAILY PRN 05/16/22 09/16/22 mcg/actuation nasal Allergy Symptoms spray,suspension aspirin 81 mg tablet,delayed 81 mg PO DAILY 06/04/22 09/16/22 release atorvastatin 80 mg tablet 80 mg PO BEDTIME 06/04/22 09/16/22 omeprazole 40 mg capsule,delayed 40 mg PO BID 07/23/22 09/16/22 release sucralfate 100 mg/mL oral 10 ml PO QIDACHS 07/23/22 09/16/22 suspension (Carafate) furosemide 20 mg tablet 20 mg PO DAILY 08/27/22 09/16/22 metoprolol succinate 25 mg 25 mg PO BID 09/16/22 09/16/22 tablet,extended release 24 hr Allergies Allergy/AdvReac Type Severity Reaction Status Date / Time polyethylene glycol Allergy Itching Verified 07/23/22 16:49 Iodinated Contrast Media AdvReac Severe PARALYSIS/N Verified 08/28/22 09:12 [CONTRAST, IV] UMBNESS Review of Systems Constitutional: Constitutional: Reports no additional constitutional complaints, Denies chills, Denies fever(s) and Denies night sweats Eyes: Eyes: Reports no additional eye complaints, Denies blurry vision, Denies change in vision, Denies diplopia, Denies eye discharge, Denies loss of vision and Denies eye pain ENT: Denies dizziness Cardiovascular: Cardiovascular: Reports no additional cardiovascular complaints, Reports chest pain, Denies lightheadedness, Denies Loss of Consciousness and Denies dyspnea Respiratory: Respiratory: Reports no additional respiratory complaints and Denies dyspnea Gastrointestinal: Gastrointestinal: Reports no additional gastrointestinal complaints, Denies abdominal pain, Denies melena, Denies hematochezia, Denies change in bowel habits and Denies change in stool character Genitourinary: Genitourinary: Reports no additional male genitourinary complaints, Denies hematuria, Denies oliguria, Denies difficulty urinating, Denies dysuria, Denies urinary frequency, Denies urinary hesitancy, Denies urinary incontinence and Denies urinary urgency Musculoskeletal: Musculoskeletal: Reports no additional musculoskeletal complaints, Denies numbness and Denies tingling Neurologic: Denies dizziness, Denies loss of vision, Denies numbness and Denies tingling Psychiatric: Psychiatric: Reports no additional psychiatric complaints Endocrine: Endocrine: Reports no additional endocrine complaints Hematologic/Lymphatic: Hematologic/Lymphatic: Reports no additional hematologic/lymphatic complaints Allergic/Immunologic: Allergic/Immunologic: Reports no additional all ergic/immunologic complaints PMFSH Past Medical History Attestation statement: The following information was validated with the patient. Source: old records reviewed and nursing notes reviewed Medical History Airway polyps Atypical chest pain Chest pain Coronary artery disease COVID-19 Gout Hypertension Incarcerated left inguinal hernia Ischemic heart disease due to coronary artery obstruction Left bundle branch block Left bundle branch block NICM (nonischemic cardiomyopathy) No known health problems Peptic ulcer disease Syncope Surgical History H/O heart artery stent History of partial gastrectomy Family History Family History Father Myocardial infarction Social History Social History Household Members: Other Household Members Other:: with friends, staying with friends Housing: Other Housing Other:: staying with a friend and financial assistance to find a hotel room Do you presently have visiting nurse or other home services: No Alcohol intake: never Patient Tobacco Use Status: Never used Tobacco Smoked in Last 30 Days: No Second Hand Smoke Exposure: Yes (friends he stays with smoke outside) Use of substances other than those prescribed or required for medical reasons: No Advance Directives: Yes Advance Directives on File: Yes Advance Directives Date on File: 05/20/22 service: No Current occupational status: unemployed Physical Exam Vital Signs: Vital Signs: Last Vital Signs Temp 97.8 F 09/20/22 00:00 Pulse 60 09/20/22 00:00 Resp 14 09/20/22 00:00 BP 125/67 09/20/22 00:00 Pulse Ox 97 09/20/22 00:00 O2 Del Method Room Air 09/20/22 00:00 BMI result Body Mass Index 25.1 Const: General: cooperative, no acute distress, alert and awake Nutritional Appearance: well nourished Orientation/consciousness: patient oriented x3 Limitations: no limitations HEENT: Head: Yes normal to inspection and Yes atraumatic Ears: hearing grossly normal bilaterally and external ears normal General nose exam: Normal external nose present, no nasal discharge noted and no epistaxis Face and sinus: Yes normal facial exam, No abrasion and No laceration Mouth: Normal oral and palatal mucosa present, no drooling and no muffled voice Eyes: General: appearance normal, both eyes and all related structures Periorbital: periorbital findings normal Eyelids: Yes eyelids normal Conjunctivae: conjunctivae normal Pupils: Equal, round and reactive pupils present EOM: EOMs intact bilaterally Neck: Neck: Yes normal visual inspection, Yes full ROM and Yes no lymphadenopathy Chest: Chest palpation & inspection: normal inspection of the chest Resp: Effort & Inspection: normal respiratory effort and able to speak in complete sentences Auscultation: clear to auscultation bilaterally Cardio: Rate: regular rate Rhythm: regular rhythm GI: Inspection: Yes normal to inspection Neuro: General: patient oriented x3 and moves all extremities Cranial nerves: Yes Equal, round and reactive pupils present Cognition (Neuro): normal cognition Motor exam (neuro): 5/5 motor strength present throughout Sensory Exam: Normal double simultaneous stimulation for sensation Coordination: [id number] test normal Extrem: General: Yes normal to inspection, Yes full ROM and Yes capillary refill normal Psych: Appearance: grossly normal Mental Status: mental status grossly normal Affect: normal affect Attitude: cooperative Thought process: Normal thought process present Thought content: Normal thought content present Insight: Good insight present (Psych) Medical Decision Making Medical Decision Making MDM Narrative: Patient is a 67 year old assigned male at with a history of CAD presenting to the emergency department today with chest pain. Patient's physical exam was unremarkable. Patient's blood work was unremarkable. Patient's EKG was unremarkable. Patient's chest x-ray showed evidence of viral illness but was otherwise unremarkable. I explained my physical exam findings as well as all test results to the patient. I answered all questions asked by the patient. Patient stated that his pain had resolved and he did not want to stay for a repeat troponin to be drawn. I stressed the importance of the patient taking his medication as prescribed. I stressed the importance of the patient following up with his primary care provider. I stressed the importance of the patient returning to the emergency department immediately if his symptoms were to worsen or if he were to develop any dizziness, shortness of breath, difficulty breathing, chest pain, blurry vision, loss of vision, nausea, vomiting, abdominal pain, fever, chills, back pain, or any other complaints. Patient verbalized agreement and understanding with this treatment plan and discharge. Differential Diagnosis Differential Diagnoses: The differential diagnosis associated with the presentation includes Chest pain STEMI NSTEMI Atypical chest pain Admission/Observation Consideration of admission/observation: Escalation of care including admission/observation considered Patient would have been admitted to the hospital had his work up had any findin gs where hospital admission was appropriate and his clinical presentation warranted hospital admission. Lab Data [facility] Lab Attestation statement: I reviewed the patient's lab results. My interpretation of these studies and their corresponding values is that they are grossly normal. 09/19/22 20:29 09/19/22 20:29 Labs: Lab Results 09/19/22 09/19/22 09/19/22 Range/Units 20:29 20:29 20:29 WBC 5.4 (4.8-10.8) X10*3/uL RBC 3.13 L (4.60-5.80) X10*6/uL Hgb 9.9 L (14.0-18.0) g/dl Hct 29.7 L (42.0-52.0) % MCV 94.9 (80.0-98.0) fL MCH 31.6 (27.0-33.0) pg MCHC 33.3 (31.0-36.0) g/dl RDW 14.2 (11.0-16.0) % Plt Count 200 (160-400) X10*3/uL MPV 8.9 L (9.4-12.4) fL Immature Gran % (Auto) 0.2 (0.0-0.4) % Neut % (Auto) 55.1 (45-73) % Lymph % (Auto) 24.8 (20-40) % [place] % (Auto) 13.1 H (2-11) % Eos % (Auto) 6.1 H (0-4) % Baso % (Auto) 0.7 (0-2) % Lymph # (Auto) 1.3 (1.2-4.9) X10*3/uL [place] # (Auto) 0.7 (0.1-1.2) X10*3/uL Eos # (Auto) 0.3 (0.0-0.4) X10*3/uL Baso # (Auto) 0.0 (0.0-0.2) X10*3/uL Abs Immat Gran (auto) 0.01 (0.00-0.03) X10*3/uL Absolute Neuts (auto) 3.0 (2.0-8.3) x10*3/uL Absolute Nucleated RBC 0.000 (0.0-0.012) X10*3/uL Nucleated RBC % (auto) 0.0 (0.0-0.2) /100WBC Sodium 145 (135-145) mmol/L Potassium 4.2 (3.3-5.1) mmol/L Chloride 111 H (96-108) mmol/L Carbon Dioxide 26 (22-29) mmol/L Anion Gap 12 (12-20) BUN 29 H (9-16) mg/dL Creatinine 0.97 (0.5-1.4) mg/dL Estim Creat Clear Calc 75.2 Estimated GFR > 60 Random Glucose 103 (60-115) mg/dL Calcium 9.9 (8.4-10.2) mg/dL Total Bilirubin 0.4 (0.0-1.0) mg/dL AST 61 H (5-37) U/L ALT 78 H (0-40) U/L Alkaline Phosphatase 204 H (39-117) U/L Troponin I High Sens 8.1 (<3.5-35.0) ng/L Total Protein 6.6 (6.5-8.0) g/dL Albumin 4.0 (3.5-5.0) g/dL Independent Interpretation I performed an independent interpretation of an: EKG and Plain X-Ray Interpretation: My interpretation is in agreement with the radiologist's impression of this imaging study. EXAMINATION: XR CHEST CLINICAL INFORMATION: Shortness of breath. COMPARISON: Chest radiograph 09/15/2022. TECHNIQUE: 2 views of the chest were obtained. FINDINGS: Stable appearance of the cardiomediastinal silhouette. Increased diffuse interstitial thickening. No pleural effusion or pneumothorax. No acute osseous findings. Redemonstration of surgical clips in the left upper quadrant. XR/XR chest 2V IMPRESSION: Increased interstitial thickening compared to 09/15/2022, nonspecific but suggestive of an atypical infectious/inflammatory process such as viral pneumonia. Dictated By: Rehana No Signed By: Electronically signed by Gilma 09/19/222201 Vent. Rate: 061 BPM ? ? Atrial Rate: 061 BPM P-R Int: 166 ms? QRS Dur: 136 ms QT Int: 480 ms ? ? ? P-R-T Axes: 049 -06 074 degrees QTc Int: 483 ms ? Normal sinus rhythm Left bundle branch block Abnormal ECG When compared with ECG of 16-SEP-2022 14:53, No significant change was found DD/ 31 Radiology Impression Discussion of test interpretation with radiology: I have reviewed the radiolo gist's reading. Independent Historian Clinical information obtained from an independent historian. History obtained from or confirmed by: EMS (EMS provided additional history and confirmed the history provided by the patient.) External Record Review External record reviewed: Other (reviewed all previous ED visit notes.) Chronic Conditions Patient?s care impacted by: Other (CAD) Discharge Plan Discharge Clinical Impression: Viral illness Patient Disposition: Home, Self-Care Instructions: Viral Syndrome (ED) Additional Instructions: Follow up with your primary care provider. Return to the emergency department immediately if your symptoms worsen or if you develop any dizziness, shortness of breath, difficulty breathing, chest pain, blurry vision, loss of vision, nausea, vomiting, abdominal pain, fever, chills, back pain, or any other complaints. Prescriptions: No Action fluticasone propionate 50 mcg/actuation [place],Suspension 1 spray INTRANASAL DAILY PRN (Reason: Allergy Symptoms) Rx Instructions: administer into each nostril allopurinol 100 mg Tablet 100 mg PO DAILY@1700 losartan 25 mg Tablet 25 mg PO DAILY@0800 isosorbide mononitrate 30 mg Tablet Extended Release 24 Hr 30 mg PO DAILY@0800 metoprolol succinate 50 mg Tablet Extended Release 24 Hr 50 mg PO BID atorvastatin 80 mg tablet 80 mg PO BEDTIME aspirin 81 mg tablet,delayed release (DR/EC) 81 mg PO DAILY sucralfate [Carafate] 100 mg/mL suspension 10 ml PO QIDACHS omeprazole 40 mg capsule,delayed release(DR/EC) 40 mg PO BID furosemide 20 mg tablet 20 mg PO DAILY metoprolol succinate 25 mg tablet extended release 24 hr 25 mg PO BID Referrals: Naseem Alford MD [Primary Care Provider] - Interventions: ED Discharge Assessment Last Done: 09/20/22 00:04 Discharge Date/Time: 09/20/22 00:04 Print Language: Monegasque
[2022-09-19 20:35] LABS: Basophils Percent Auto 0.7 % (0-2); Eosinophils Absolute Auto 0.3 X10*3/uL (0.0-0.4); Eosinophils Percent Auto 6.1 % (0-4); Hematocrit 29.7 % (42.0-52.0); Hemoglobin 9.9 g/dl (14.0-18.0); Imm Gran Abs Auto 0.01 X10*3/uL (0.00-0.03); Imm Gran Pct Auto 0.2 % (0.0-0.4); Lymphocytes Absolute Auto 1.3 X10*3/uL (1.2-4.9); Lymphocytes Percent Auto 24.8 % (20-40); Mean Corpuscular HGB Conc 33.3 g/dl (31.0-36.0); Mean Corpuscular Hemoglobin 31.6 pg (27.0-33.0); Mean Corpuscular Volume 94.9 fL (80.0-98.0); Mean Platelet Volume 8.9 fL (9.4-12.4); Monocytes Absolute Auto 0.7 X10*3/uL (0.1-1.2); Monocytes Percent Auto 13.1 % (2-11); Neutrophils Percent Auto 55.1 % (45-73); Platelet Count 200 X10*3/uL (160-400); Red Blood Count 3.13 X10*6/uL (4.60-5.80); Red Cell Distribution Width 14.2 % (11.0-16.0); White Blood Count 5.4 X10*3/uL (4.8-10.8)
[2022-09-19 20:51] LABS: Alanine Aminotransferase 78 U/L (0-40); Alkaline Phosphatase 204 U/L (39-117); Anion Gap 12 (12-20); Aspartate Amino Transferase 61 U/L (5-37); Bilirubin Total 0.4 mg/dL (0.0-1.0); Blood Urea Nitrogen 29 mg/dL (9-16); Calcium 9.9 mg/dL (8.4-10.2); Carbon Dioxide 26 mmol/L (22-29); Chloride 111 mmol/L (96-108); Creatinine Clr Calc Pharmacy 75.2; Estimated Glomerular Filt Rate > 60; Glucose Random 103 mg/dL (60-115); Potassium 4.2 mmol/L (3.3-5.1); Sodium 145 mmol/L (135-145); Total Protein 6.6 g/dL (6.5-8.0)
[2022-09-19 20:57] LABS: Troponin-I High Sensitivity 8.1 ng/L (<3.5-35.0)
[2022-09-20] VITALS: BP 125/67; PULSE 60; RESP 14; TEMP 36.6; O2SAT 97
== END 2022-09-20 00:04 | disposition home or self-care (01) ==
PROVIDERS: Emergency Provider Emergency Medicine; PCP Internal Medicine
DX: B34.9 Viral infection, unspecified (principal); R07.9 Chest pain, unspecified; R06.02 Shortness of breath; I10 Essential (primary) hypertension; I44.7 Left bundle-branch block, unspecified; I25.10 Atherosclerotic heart disease of native coronary artery without angina pectoris; Z79.899 Other long term (current) drug therapy
CPT/HCPCS: 36415; 71046; 80053; 84484; 85025; 93005; 99284; 99285

== ENCOUNTER → 2022-09-19 20:19 | Outpatient (BNV) | payer MEDICARE, MEDICAID, SELFPAY | PROVIDERS: Emergency Provider Emergency Medicine; PCP Internal Medicine; Visit Provider Internal Medicine Cardiovascular Disease | DX: R07.9 Chest pain, unspecified (principal) | CPT/HCPCS: 93010 ==

== ENCOUNTER 2022-09-21 19:47 | Emergency (ER) | payer MEDICARE, MEDICAID, SELFPAY ==
--- NOTE | ~2022-09-21 | XR_ITS ---
EXAMINATION: XR CHEST CLINICAL INFORMATION: Pain COMPARISON: Chest x-ray on 09/19/2022 TECHNIQUE: 2 views of the chest were obtained. FINDINGS: No significant abnormality is noted involving the heart, lungs, mediastinum, bony thorax or soft tissues. XR/XR chest 2V IMPRESSION: Unremarkable examination.
[2022-09-21 19:54] VITALS: BP 173/92; PULSE 76; O2SAT 99
[2022-09-21 20:16] VITALS: BP 150/81; PULSE 58; RESP 18; TEMP 36; O2SAT 99; BMI 25.4
--- NOTE | 2022-09-21 20:17 | ECG_ITS ---
Test Reason : CHEST PAIN Blood Pressure : / mmHG Vent. Rate : 054 BPM Atrial Rate : 054 BPM P-R Int : 174 ms QRS Dur : 132 ms QT Int : 488 ms P-R-T Axes : 051 -07 089 degrees QTc Int : 462 ms Sinus bradycardia Left bundle branch block Abnormal ECG When compared with ECG of 19-SEP-2022 20:32, No significant change was found Referred By: Chris Brock Electronically Signed By:AGUILAR REYES MD
--- NOTE | 2022-09-21 20:17 | ED.GENADULT ---
HPI - General Adult General Chief complaint: Dyspnea Stated complaint: sob, per ems Time Seen by Provider: 09/22/22 01:24 Source: patient Mode of arrival: ambulatory Limitations: no limitations History of Present Illness HPI narrative: Patient homeless been here multiple times for multiple complaints for just seen here 2 days for cough now and comes as while coughing noticed small amount of blood patient diagnosed with bronchitis saturating 100% at room air vitals are stable no cough noticed in the ER Related Data Home Medications Medication Instructions Recorded Confirmed allopurinol 100 mg tablet 100 mg PO DAILY@1700 08/07/21 09/16/22 isosorbide mononitrate 30 mg 30 mg PO DAILY@0800 08/07/21 09/16/22 tablet,extended release 24 hr losartan 25 mg tablet 25 mg PO DAILY@0800 08/07/21 09/16/22 metoprolol succinate 50 mg 50 mg PO BID 08/07/21 09/16/22 tablet,extended release 24 hr fluticasone propionate 50 1 spray intranasal DAILY PRN 05/16/22 09/16/22 mcg/actuation nasal Allergy Symptoms spray,suspension aspirin 81 mg tablet,delayed 81 mg PO DAILY 06/04/22 09/16/22 release atorvastatin 80 mg tablet 80 mg PO BEDTIME 06/04/22 09/16/22 omeprazole 40 mg capsule,delayed 40 mg PO BID 07/23/22 09/16/22 release sucralfate 100 mg/mL oral 10 ml PO QIDACHS 07/23/22 09/16/22 suspension (Carafate) furosemide 20 mg tablet 20 mg PO DAILY 08/27/22 09/16/22 metoprolol succinate 25 mg 25 mg PO BID 09/16/22 09/16/22 tablet,extended release 24 hr Previous Rx's Medication Instructions Recorded benzonatate 200 mg capsule 200 mg PO TID PRN cough #20 caps 09/22/22 Allergies Allergy/AdvReac Type Severity Reaction Status Date / Time polyethylene glycol Allergy Itching Verified 07/23/22 16:49 Iodinated Contrast Media AdvReac Severe PARALYSIS/N Verified 08/28/22 09:12 [CONTRAST, IV] UMBNESS Review of Systems Review of Systems: Yes all other systems are reviewed and are negative PMFSH Past Medical History Medical History Airway polyps Atypical chest pain Chest pain Coronary artery disease COVID-19 Gout Hypertension Incarcerated left inguinal hernia Ischemic heart disease due to coronary artery obstruction Left bundle branch block Left bundle branch block NICM (nonischemic cardiomyopathy) No known health problems Peptic ulcer disease Syncope Surgical History H/O heart artery stent History of partial gastrectomy Family History Family History Father Myocardial infarction Social History Social History Household Members: Other Household Members Other:: with friends, staying with friends Housing: Other Housing Other:: staying with a friend and financial assistance to find a hotel room Do you presently have visiting nurse or other home services: No Alcohol intake: never Patient Tobacco Use Status: Never used Tobacco Smoked in Last 30 Days: No Second Hand Smoke Exposure: Yes (friends he stays with smoke outside) Use of substances other than those prescribed or required for medical reasons: No Advance Directives: Yes Advance Directives on File: Yes Advance Directives Date on File: 05/20/22 service: No Current occupational status: unemployed Physical Exam ED Vital Signs: Vital Signs - 24 hr 09/21/22 20:16 09/22/22 01:18 Temperature 96.8 F 98.1 F Pulse Rate 58 56 Respiratory Rate 18 16 Blood Pressure 150/81 H 174/58 H Pulse Oximetry 99 100 Oxygen Delivery Method Room Air Room Air BMI result Body Mass Index 25.4 APPEARANCE: ALERT. ORIENTED X3. NO ACUTE DISTRESS. EYES: PERRLA, NO NYSTAGMUS ENT: PHARYNX NORMAL. ORAL MUCOSA MOIST NECK: NORMAL INSPECTION. NECK SUPPLE. CVS: NORMAL HEART RATE AND RHYTHM. PULSES NORMAL. RESPIRATORY: NO RESPIRATORY DISTRESS. EQUAL AIR ENTRY BILATERAL, NO WHEEZING/RALES/RHONCHI ABDOMEN: SOFT AND NONTENDER. BOWEL SOUNDS ARE PRESENT, NO MASS PALPABLE, NO CVA TENDERNESS SKIN: SKIN WARM AND DRY. NORMAL SKIN COLOR. NORMAL SKIN TURGOR. EXTREMITIES: NO LOWER EXTREMITY EDEMA. NO CALF TENDERNESS NEURO: ORIENTED X 3. NO MOTOR DEFICIT. NO SENSORY DEFICIT.NO CEREBELLAR SIGNS , CRANIAL NERVES II-XII INTACT Course Course Course Narrative: RME- 67 year old male presents for evaluation of shortness of breath, cough. He was diagnosed with viral pneumonia 2 days ago. Plan for repeat labs, chest x-ray Medical Decision Making Medical Decision Making [facility] Narrative: Patient with multiple complaints homeless workup negative chest pain had almost every other day from a different complaint clinically stable discharge patient home Differential Diagnosis Differential Diagnoses: The differential diagnosis associated with the presentation includes Bronchitis/pneumonia/social issues Lab Data [facility] Lab Attestation statement: I reviewed the patient's lab results. 09/21/22 21:03 09/21/22 21:03 Labs: Lab Results 09/21/22 09/21/22 09/21/22 Range/Units 21:03 21:03 21:03 WBC 5.2 (4.8-10.8) X10*3/uL RBC 3.27 L (4.60-5.80) X10*6/uL Hgb 10.2 L (14.0-18.0) g/dl Hct 31.9 L (42.0-52.0) % MCV 97.6 (80.0-98.0) fL MCH 31.2 (27.0-33.0) pg MCHC 32.0 (31.0-36.0) g/dl RDW 14.4 (11.0-16.0) % Plt Count 231 (160-400) X10*3/uL MPV 9.6 (9.4-12.4) fL Immature Gran % (Auto) 0.4 (0.0-0.4) % Neut % (Auto) 53.9 (45-73) % Lymph % (Auto) 25.3 (20-40) % [place] % (Auto) 12.5 H (2-11) % Eos % (Auto) 7.1 H (0-4) % Baso % (Auto) 0.8 (0-2) % Lymph # (Auto) 1.3 (1.2-4.9) X10*3/uL [place] # (Auto) 0.7 (0.1-1.2) X10*3/uL Eos # (Auto) 0.4 (0.0-0.4) X10*3/uL Baso # (Auto) 0.0 (0.0-0.2) X10*3/uL Abs Immat Gran (auto) 0.02 (0.00-0.03) X10*3/uL Absolute Neuts (auto) 2.8 (2.0-8.3) x10*3/uL Absolute Nucleated RBC 0.000 (0.0-0.012) X10*3/uL Nucleated RBC % (auto) 0.0 (0.0-0.2) /100WBC PT (10.0-13.1) SEC INR (0.9-1.1) APTT (26.0-36.4) SEC Sodium 143 (135-145) mmol/L Potassium 4.3 (3.3-5.1) mmol/L Chloride 109 H (96-108) mmol/L Carbon Dioxide 28 (22-29) mmol/L Anion Gap 10 L (12-20) BUN 29 H (9-16) mg/dL Creatinine 0.94 (0.5-1.4) mg/dL Estim Creat Clear Calc 77.6 Estimated GFR > 60 Random Glucose 87 (60-115) mg/dL Calcium 9.4 (8.4-10.2) mg/dL Total Bilirubin 0.5 (0.0-1.0) mg/dL AST 50 H (5-37) U/L ALT 57 H (0-40) U/L Alkaline Phosphatase 182 H (39-117) U/L Total Protein 6.8 (6.5-8.0) g/dL Albumin 4.1 (3.5-5.0) g/dL Lipase 42 (8-78) U/L Influenza Type A (PCR) NEGATIVE (Negative) Influenza Type B (PCR) NEGATIVE (Negative) RSV RNA Qual (PCR) NEGATIVE (Negative) SARS-CoV-2 RNA (RT-PCR) NEGATIVE (Negative) 09/21/22 09/21/22 Range/Units 21:03 21:03 WBC (4.8-10.8) X10*3/uL RBC (4.60-5.80) X10*6/uL Hgb (14.0-18.0) g/dl Hct (42.0-52.0) % MCV (80.0-98.0) fL MCH (27.0-33.0) pg MCHC (31.0-36.0) g/dl RDW (11.0-16.0) % Plt Count (160-400) X10*3/uL MPV (9.4-12.4) fL Immature Gran % (Auto) (0.0-0.4) % Neut % (Auto) (45-73) % Lymph % (Auto) (20-40) % [place] % (Auto) (2-11) % Eos % (Auto) (0-4) % Baso % (Auto) (0-2) % Lymph # (Auto) (1.2-4.9) X10*3/uL [place] # (Auto) (0.1-1.2) X10*3/uL Eos # (Auto) (0.0-0.4) X10*3/uL Baso # (Auto) (0.0-0.2) X10*3/uL Abs Immat Gran (auto) (0.00-0.03) X10*3/uL Absolute Neuts (auto) (2.0-8.3) x10*3/uL Absolute Nucleated RBC (0.0-0.012) X10*3/uL Nucleated RBC % (auto) (0.0-0.2) /100WBC PT 12.2 (10.0-13.1) SEC INR 1.1 (0.9-1.1) APTT 31.8 Cancelled (26.0-36.4) SEC Sodium (135-145) mmol/L Potassium (3.3-5.1) mmol/L Chloride (96-108) mmol/L Carbon Dioxide (22-29) mmol/L Anion Gap (12-20) BUN (9-16) mg/dL Creatinine (0.5-1.4) mg/dL Estim Creat Clear Calc Estimated GFR Random Glucose (60-115) mg/dL Calcium (8.4-10.2) mg/dL Total Bilirubin (0.0-1.0) mg/dL AST (5-37) U/L ALT (0-40) U/L Alkaline Phosphatase (39-117) U/L Total Protein (6.5-8.0) g/dL Albumin (3.5-5.0) g/dL Lipase (8-78) U/L Influenza Type A (PCR) (Negative) Influenza Type B (PCR) (Negative) RSV RNA Qual (PCR) (Negative) SARS-CoV-2 RNA (RT-PCR) (Negative) Discharge Plan Discharge Clinical Impression: Acute bronchitis Patient Disposition: Home, Self-Care Instructions: Acute Bronchitis (ED) Additional Instructions: Continue your medications, cough drops as prescribed Follow with PCP and social science teacher Prescriptions: New benzonatate 200 mg capsule 200 mg PO TID PRN (Reason: cough) Qty: 20 0RF No Action fluticasone propionate 50 mcg/actuation [place],Suspension 1 spray INTRANASAL DAILY PRN (Reason: Allergy Symptoms) Rx Instructions: administer into each nostril allopurinol 100 mg Tablet 100 mg PO DAILY@1700 losartan 25 mg Tablet 25 mg PO DAILY@0800 isosorbide mononitrate 30 mg Tablet Extended Release 24 Hr 30 mg PO DAILY@0800 metoprolol succinate 50 mg Tablet Extended Release 24 Hr 50 mg PO BID atorvastatin 80 mg tablet 80 mg PO BEDTIME aspirin 81 mg tablet,delayed release (DR/EC) 81 mg PO DAILY sucralfate [Carafate] 100 mg/mL suspension 10 ml PO QIDACHS omeprazole 40 mg capsule,delayed release(DR/EC) 40 mg PO BID furosemide 20 mg tablet 20 mg PO DAILY metoprolol succinate 25 mg tablet extended release 24 hr 25 mg PO BID
[2022-09-21 21:20] LABS: Basophils Percent Auto 0.8 % (0-2); Eosinophils Absolute Auto 0.4 X10*3/uL (0.0-0.4); Eosinophils Percent Auto 7.1 % (0-4); Hematocrit 31.9 % (42.0-52.0); Hemoglobin 10.2 g/dl (14.0-18.0); Imm Gran Abs Auto 0.02 X10*3/uL (0.00-0.03); Imm Gran Pct Auto 0.4 % (0.0-0.4); Lymphocytes Absolute Auto 1.3 X10*3/uL (1.2-4.9); Lymphocytes Percent Auto 25.3 % (20-40); MANUAL DIFF FLAG NO; Mean Corpuscular Hemoglobin 31.2 pg (27.0-33.0); Mean Corpuscular Volume 97.6 fL (80.0-98.0); Mean Platelet Volume 9.6 fL (9.4-12.4); Monocytes Absolute Auto 0.7 X10*3/uL (0.1-1.2); Monocytes Percent Auto 12.5 % (2-11); Neutrophils Absolute Auto 2.8 x10*3/uL (2.0-8.3); Neutrophils Percent Auto 53.9 % (45-73); Platelet Count 231 X10*3/uL (160-400); Red Blood Count 3.27 X10*6/uL (4.60-5.80); Red Cell Distribution Width 14.4 % (11.0-16.0); White Blood Count 5.2 X10*3/uL (4.8-10.8)
[2022-09-21 21:29] LABS: INTERNATIONAL NORM RATIO 1.1 (0.9-1.1); Prothrombin Time 12.2 SEC (10.0-13.1)
[2022-09-21 21:35] LABS: Alanine Aminotransferase 57 U/L (0-40); Albumin Level 4.1 g/dL (3.5-5.0); Alkaline Phosphatase 182 U/L (39-117); Anion Gap 10 (12-20); Aspartate Amino Transferase 50 U/L (5-37); Bilirubin Total 0.5 mg/dL (0.0-1.0); Blood Urea Nitrogen 29 mg/dL (9-16); Calcium 9.4 mg/dL (8.4-10.2); Carbon Dioxide 28 mmol/L (22-29); Chloride 109 mmol/L (96-108); Creatinine Clr Calc Pharmacy 77.6; Estimated Glomerular Filt Rate > 60; Glucose Random 87 mg/dL (60-115); Lipase 42 U/L (8-78); Potassium 4.3 mmol/L (3.3-5.1); Sodium 143 mmol/L (135-145); Total Protein 6.8 g/dL (6.5-8.0)
[2022-09-21 21:58] LABS: Influenza A PCR NEGATIVE (Negative); Influenza B PCR NEGATIVE (Negative); Resp Syncy Virus RNA Qual PCR NEGATIVE (Negative); SARS COV2 PCR INHOUSE NEGATIVE (Negative)
[2022-09-21 22:12] LABS: Partial Thromboplastin Time 31.8 SEC (26.0-36.4)
[2022-09-22 01:18] VITALS: BP 174/58; PULSE 56; RESP 16; TEMP 36.7; O2SAT 100
[2022-09-22] MEDS: Benzonatate 100 MG CAPSULE 200 MG PO (02:03)
== END 2022-09-22 02:07 | disposition home or self-care (01) ==
PROVIDERS: Physician Assistant; Emergency Provider Internal Medicine
DX: J20.9 Acute bronchitis, unspecified (principal); I10 Essential (primary) hypertension; R06.02 Shortness of breath; Z59.01 Sheltered homelessness; Z20.822 Contact with and (suspected) exposure to COVID-19; Z20.828 Contact with and (suspected) exposure to other viral communicable diseases; Z79.899 Other long term (current) drug therapy; Z79.82 Long term (current) use of aspirin
CPT/HCPCS: 0241U; 36415; 71046; 80053; 83690; 85025; 85610; 85730; 93005; 99283; 99284

== ENCOUNTER → 2022-09-21 20:17 | Outpatient (BNV) | payer MEDICARE, MEDICAID, SELFPAY | PROVIDERS: Emergency Provider Internal Medicine; Visit Provider Internal Medicine Cardiovascular Disease | DX: R07.9 Chest pain, unspecified (principal) | CPT/HCPCS: 93010 ==

== ENCOUNTER 2022-09-24 03:21 | Emergency (ER) | payer MEDICARE, MEDICAID, SELFPAY ==
--- NOTE | 2022-09-24 | ECG_ITS ---
Test Reason : CHEST PAIN Blood Pressure : / mmHG Vent. Rate : 059 BPM Atrial Rate : 059 BPM P-R Int : 156 ms QRS Dur : 138 ms QT Int : 496 ms P-R-T Axes : 047 015 031 degrees QTc Int : 491 ms Sinus bradycardia Left bundle branch block Abnormal ECG When compared with ECG of 21-SEP-2022 21:09, Nonspecific T wave abnormality now evident in Inferior leads Referred By: Generic ED Physician Electronically Signed By:AGUILAR REYES MD
[2022-09-24 03:31] VITALS: BP 165/69; PULSE 59; RESP 17; TEMP 36.7; O2SAT 100; BMI 25.4
--- NOTE | 2022-09-24 04:11 | ED_ITS ---
HPI - Chest Pain General Chief Complaint: Chest Pain Stated Complaint: dizziness and chest pain Time Seen by Provider: 09/24/22 03:28 Source: patient Mode of arrival: EMS History of Present Illness HPI narrative: 67-year-old male brought in by EMS, he has been here with increasing frequency with continued complaints chest pain and syncope as well as dizziness and shortness of breath. Patient states that he saw his primary care provider, Dr. Alford on 09/18 and told him of all of his symptoms. Related Data Home Medications Medication Instructions Recorded Confirmed allopurinol 100 mg tablet 100 mg PO DAILY@1700 08/07/21 09/16/22 isosorbide mononitrate 30 mg 30 mg PO DAILY@0800 08/07/21 09/16/22 tablet,extended release 24 hr losartan 25 mg tablet 25 mg PO DAILY@0800 08/07/21 09/16/22 metoprolol succinate 50 mg 50 mg PO BID 08/07/21 09/16/22 tablet,extended release 24 hr fluticasone propionate 50 1 spray intranasal DAILY PRN 05/16/22 09/16/22 mcg/actuation nasal Allergy Symptoms spray,suspension aspirin 81 mg tablet,delayed 81 mg PO DAILY 06/04/22 09/16/22 release atorvastatin 80 mg tablet 80 mg PO BEDTIME 06/04/22 09/16/22 omeprazole 40 mg capsule,delayed 40 mg PO BID 07/23/22 09/16/22 release sucralfate 100 mg/mL oral 10 ml PO QIDACHS 07/23/22 09/16/22 suspension (Carafate) furosemide 20 mg tablet 20 mg PO DAILY 08/27/22 09/16/22 metoprolol succinate 25 mg 25 mg PO BID 09/16/22 09/16/22 tablet,extended release 24 hr Previous Rx's Medication Instructions Recorded benzonatate 200 mg capsule 200 mg PO TID PRN cough #20 caps 09/22/22 Allergies Allergy/AdvReac Type Severity Reaction Status Date / Time polyethylene glycol Allergy Itching Verified 07/23/22 16:49 Iodinated Contrast Media AdvReac Severe PARALYSIS/N Verified 08/28/22 09:12 [CONTRAST, IV] UMBNESS Review of Systems Review of Systems: Pertinent positives and negatives as stated in HPI PMFSH Past Medical History Source: nursing notes reviewed Medical History Airway polyps Atypical chest pain Chest pain Coronary artery disease COVID-19 Gout Hypertension Incarcerated left inguinal hernia Ischemic heart disease due to coronary artery obstruction Left bundle branch block Left bundle branch block NICM (nonischemic cardiomyopathy) No known health problems Peptic ulcer disease Syncope Surgical History H/O heart artery stent History of partial gastrectomy Family History Family History Father Myocardial infarction Social History Social History Household Members: Other Household Members Other:: with friends, staying with friends Housing: Other Housing Other:: staying with a friend and financial assistance to find a hotel room Do you presently have visiting nurse or other home services: No Alcohol intake: never Patient Tobacco Use Status: Never used Tobacco Smoked in Last 30 Days: No Second Hand Smoke Exposure: Yes (friends he stays with smoke outside) Use of substances other than those prescribed or required for medical reasons: No Advance Directives: Yes Advance Directives on File: Yes Advance Directives Date on File: 05/20/22 service: No Current occupational status: unemployed Physical Exam Vital Signs: Vital Signs: Last Vital Signs Temp 98.0 F 09/24/22 03:31 Pulse 59 09/24/22 03:31 Resp 17 09/24/22 03:31 BP 165/69 H 09/24/22 03:31 Pulse Ox 100 09/24/22 03:31 O2 Del Method Room Air 09/24/22 03:31 BMI result Body Mass Index 25.4 VITAL SIGNS: Reviewed. GENERAL: Well developed, well nourished, in no acute distress. HEAD: Normocephalic/atraumatic EYES: PERRLA, EOMI EARS: Ext canals without abnormality NOSE: Nares patent bilateral OROPHARYNX: no oral lesions noted, posterior pharynx clear NECK: Supple, no adenopathy LUNGS: Normal breath sounds. No adventitious sounds or accessory muscle use. SpO2<100> CARDIOVASCULAR: Regular rate and rhythm without noted murmurs, no JVD or lower extremity edema. ABDOMEN: Soft, non-tender, non-distended with bowel sounds. MUSCULOSKELETAL: No tenderness, deformities, or effusions noted on gross inspection. EXTREMITIES: No cyanosis, clubbing or edema. SKIN: Inspection of the skin reveals no rashes NEUROLOGIC: Alert and oriented x 4. Strength and sensation to light touch were grossly intact x 4. Medical Decision Making Medical Decision Making [facility] Narrative: This is a 67-year-old male with recurrent visits, appears to be homeless, continues to endorse that there are no cardiology offices that will see patient's that are on [facility]. He has had multiple workups, multiple mental health evaluations as well as and evaluation by the care team. He appears very comfortable, on quick review of his EKG there are no acute changes in his EKG, he has a chronic left bundle branch block, his vital signs are stable, he is not hypoxic nor is he tachypneic or tachycardic. Patient does have a significant CAD history and I do feel that he would benefit from an outpatient workup but I am unsure if he is an impediment to himself and follow-up due to his paranoia. I did explain to the patient that there are cardiology offices the do see marcos ent's your on [facility]. I reviewed all investigations, as well as all recent investigations an patient's hematologic indices are chronically stable with a normocytic anemia, no thrombocytopenia, no leukocytosis or left shift. Chemistry indices demonstrate a mild non an I and get up acidosis without KIRAN or electrolyte abnormalities, chronically stable of plan phosphatase levels, troponin levels are consistently detectable but not elevated and there are no acute EKG changes. Patient is afebrile, he has been hemodynamically stable. In my opinion I think that patient should undergo outpatient Cardiology and stress test evaluation, and will refer the patient to 1 of our cardiologists and send my note to that food and beverage analyst as well as to Dr. Alford in the hopes that patient can be further evaluated. Differential Diagnosis Differential Diagnoses: The differential diagnosis associated with the presentation includes Please see the discussion above Admission/Observation Consideration of admission/observation: Escalation of care including admission/observation considered Please see the discussion above Lab Data MDM Lab Attestation statement: I reviewed the patient's lab results. Please see the discussion above 09/24/22 04:40 09/24/22 04:40 Labs: Lab Results 09/24/22 09/24/22 09/24/22 Range/Units 04:40 04:40 04:40 WBC 3.7 L (4.8-10.8) X10*3/uL RBC 3.41 L (4.60-5.80) X10*6/uL Hgb 10.7 L (14.0-18.0) g/dl Hct 33.0 L (42.0-52.0) % MCV 96.8 (80.0-98.0) fL MCH 31.4 (27.0-33.0) pg MCHC 32.4 (31.0-36.0) g/dl RDW 14.4 (11.0-16.0) % Plt Count 213 (160-400) X10*3/uL MPV 8.9 L (9.4-12.4) fL Immature Gran % (Auto) 0.3 (0.0-0.4) % Neut % (Auto) 44.0 L (45-73) % Lymph % (Auto) 35.3 (20-40) % [place] % (Auto) 11.7 H (2-11) % Eos % (Auto) 7.9 H (0-4) % Baso % (Auto) 0.8 (0-2) % Lymph # (Auto) 1.3 (1.2-4.9) X10*3/uL [place] # (Auto) 0.4 (0.1-1.2) X10*3/uL Eos # (Auto) 0.3 (0.0-0.4) X10*3/uL Baso # (Auto) 0.0 (0.0-0.2) X10*3/uL Abs Immat Gran (auto) 0.01 (0.00-0.03) X10*3/uL Absolute Neuts (auto) 1.6 L (2.0-8.3) x10*3/uL Absolute Nucleated RBC 0.000 (0.0-0.012) X10*3/uL Nucleated RBC % (auto) 0.0 (0.0-0.2) /100WBC Sodium 143 (135-145) mmol/L Potassium 3.9 (3.3-5.1) mmol/L Chloride 111 H (96-108) mmol/L Carbon Dioxide 21 L (22-29) mmol/L Anion Gap 15 (12-20) BUN 19 H (9-16) mg/dL Creatinine 0.92 (0.5-1.4) mg/dL Estim Creat Clear Calc 79.3 Estimated GFR > 60 Random Glucose 86 (60-115) mg/dL Calcium 9.5 (8.4-10.2) mg/dL Total Bilirubin 0.5 (0.0-1.0) mg/dL AST 37 (5-37) U/L ALT 34 (0-40) U/L Alkaline Phosphatase 163 H (39-117) U/L Troponin I High Sens 4.3 (<3.5-35.0) ng/L Total Protein 6.7 (6.5-8.0) g/dL Albumin 4.1 (3.5-5.0) g/dL Independent Interpretation I performed an independent interpretation of an: EKG Interpretation: Sinus bradycardia, LBBB at baseline, HR-59, no STEMI, OK within normal limits, QRS-138 and QTC-491. Chronic Conditions Patient?s care impacted by: Hypertension Discharge Plan Discharge Clinical Impression: Chest pain Patient Disposition: Home, Self-Care Instructions: Chest Pain (ED) Additional Instructions: 1. Resume all home medications as prescribed. 2. Follow-up with Dr. Alford by calling the office this morning and asking him to set an appointment for you to Cardiology at [facility]. Return to the ER if you have any change in symptoms. Prescriptions: No Action fluticasone propionate 50 mcg/actuation [place],Suspension 1 spray INTRANASAL DAILY PRN (Reason: Allergy Symptoms) Rx Instructions: administer into each nostril allopurinol 100 mg Tablet 100 mg PO DAILY@1700 losartan 25 mg Tablet 25 mg PO DAILY@0800 isosorbide mononitrate 30 mg Tablet Extended Release 24 Hr 30 mg PO DAILY@0800 metoprolol succinate 50 mg Tablet Extended Release 24 Hr 50 mg PO BID atorvastatin 80 mg tablet 80 mg PO BEDTIME aspirin 81 mg tablet,delayed release (DR/EC) 81 mg PO DAILY sucralfate [Carafate] 100 mg/mL suspension 10 ml PO QIDACHS omeprazole 40 mg capsule,delayed release(DR/EC) 40 mg PO BID furosemide 20 mg tablet 20 mg PO DAILY metoprolol succinate 25 mg tablet extended release 24 hr 25 mg PO BID benzonatate 200 mg capsule 200 mg PO TID PRN (Reason: cough) Qty: 20 0RF Referrals: Naseem Alford MD [Physician] - Harry South MD [Physician] -
[2022-09-24 04:44] LABS: Basophils Percent Auto 0.8 % (0-2); Eosinophils Absolute Auto 0.3 X10*3/uL (0.0-0.4); Eosinophils Percent Auto 7.9 % (0-4); Hemoglobin 10.7 g/dl (14.0-18.0); Imm Gran Abs Auto 0.01 X10*3/uL (0.00-0.03); Imm Gran Pct Auto 0.3 % (0.0-0.4); Lymphocytes Absolute Auto 1.3 X10*3/uL (1.2-4.9); Lymphocytes Percent Auto 35.3 % (20-40); MANUAL DIFF FLAG NO; Mean Corpuscular HGB Conc 32.4 g/dl (31.0-36.0); Mean Corpuscular Hemoglobin 31.4 pg (27.0-33.0); Mean Corpuscular Volume 96.8 fL (80.0-98.0); Mean Platelet Volume 8.9 fL (9.4-12.4); Monocytes Absolute Auto 0.4 X10*3/uL (0.1-1.2); Monocytes Percent Auto 11.7 % (2-11); Neutrophils Absolute Auto 1.6 x10*3/uL (2.0-8.3); Platelet Count 213 X10*3/uL (160-400); Red Blood Count 3.41 X10*6/uL (4.60-5.80); Red Cell Distribution Width 14.4 % (11.0-16.0); White Blood Count 3.7 X10*3/uL (4.8-10.8)
[2022-09-24 05:00] LABS: Alanine Aminotransferase 34 U/L (0-40); Albumin Level 4.1 g/dL (3.5-5.0); Alkaline Phosphatase 163 U/L (39-117); Anion Gap 15 (12-20); Aspartate Amino Transferase 37 U/L (5-37); Bilirubin Total 0.5 mg/dL (0.0-1.0); Blood Urea Nitrogen 19 mg/dL (9-16); Calcium 9.5 mg/dL (8.4-10.2); Carbon Dioxide 21 mmol/L (22-29); Chloride 111 mmol/L (96-108); Creatinine Clr Calc Pharmacy 79.3; Estimated Glomerular Filt Rate > 60; Glucose Random 86 mg/dL (60-115); Potassium 3.9 mmol/L (3.3-5.1); Sodium 143 mmol/L (135-145); Total Protein 6.7 g/dL (6.5-8.0)
[2022-09-24 05:04] LABS: Troponin-I High Sensitivity 4.3 ng/L (<3.5-35.0)
[2022-09-24 05:59] VITALS: BP 159/71; PULSE 57; RESP 14; TEMP 36.7; O2SAT 100
== END 2022-09-24 06:04 | disposition home or self-care (01) ==
PROVIDERS: Emergency Provider Student in an Organized Health Care Education/Training Program
DX: R07.89 Other chest pain (principal); R42 Dizziness and giddiness; R35.0 Frequency of micturition; R06.02 Shortness of breath; Z79.899 Other long term (current) drug therapy
CPT/HCPCS: 36415; 80053; 84484; 85025; 93005; 99283; 99285

== ENCOUNTER → 2022-09-24 03:34 | Outpatient (BNV) | payer MEDICARE, MEDICAID, SELFPAY | PROVIDERS: Emergency Provider Student in an Organized Health Care Education/Training Program; Visit Provider Internal Medicine Cardiovascular Disease | DX: R07.9 Chest pain, unspecified (principal) | CPT/HCPCS: 93010 ==

== ENCOUNTER 2022-10-03 11:58 | Emergency (ER) | payer MEDICARE, MEDICAID, SELFPAY ==
--- NOTE | 2022-10-03 | ECG_ITS ---
Test Reason : CP Blood Pressure : / mmHG Vent. Rate : 057 BPM Atrial Rate : 057 BPM P-R Int : 168 ms QRS Dur : 148 ms QT Int : 484 ms P-R-T Axes : 048 001 082 degrees QTc Int : 471 ms Sinus bradycardia Left bundle branch block Abnormal ECG When compared with ECG of 24-SEP-2022 03:34, No significant change was found Referred By: Gómez Devine Electronically Signed By:KENNETH EVANS
--- NOTE | ~2022-10-03 | XR_ITS ---
EXAMINATION: CHEST 2 VIEWS CLINICAL INFORMATION: syncope/cp. COMPARISON: 09/21/2022. TECHNIQUE: AP frontal and lateral views of the chest obtained FINDINGS: The lungs are hypoexpanded. No focal infiltrate, effusion, edema, or pneumothorax. Cardiac and mediastinal silhouettes are within normal limits for technique. No acute bony abnormality seen. Postoperative clips overlying the epigastrium XR/XR chest 2V IMPRESSION: Hypoexpanded but otherwise no evidence of acute disease.
[2022-10-03 12:08] VITALS: BP 140/58; PULSE 60; RESP 14; TEMP 37.7; O2SAT 99; BMI 28.4
[2022-10-03 12:14] VITALS: BP 143/74; PULSE 60; O2SAT 100
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
[2022-10-03 13:52] VITALS: BP 131/59; PULSE 56; RESP 16; O2SAT 100
[2022-10-03] MEDS: Furosemide 40 MG/4 ML VIAL IVPUSH (13:53)
[2022-10-03 14:02] LABS: Basophils Percent Auto 0.7 % (0-2); Eosinophils Absolute Auto 0.3 X10*3/uL (0.0-0.4); Eosinophils Percent Auto 6.3 % (0-4); Hematocrit 30.1 % (42.0-52.0); Hemoglobin 9.8 g/dl (14.0-18.0); Imm Gran Abs Auto 0.01 X10*3/uL (0.00-0.03); Imm Gran Pct Auto 0.2 % (0.0-0.4); Lymphocytes Absolute Auto 1.2 X10*3/uL (1.2-4.9); MANUAL DIFF FLAG NO; Mean Corpuscular HGB Conc 32.6 g/dl (31.0-36.0); Mean Corpuscular Hemoglobin 31.3 pg (27.0-33.0); Mean Corpuscular Volume 96.2 fL (80.0-98.0); Mean Platelet Volume 9.1 fL (9.4-12.4); Monocytes Absolute Auto 0.5 X10*3/uL (0.1-1.2); Monocytes Percent Auto 11.6 % (2-11); Neutrophils Absolute Auto 2.1 x10*3/uL (2.0-8.3); Neutrophils Percent Auto 51.2 % (45-73); Platelet Count 193 X10*3/uL (160-400); Red Blood Count 3.13 X10*6/uL (4.60-5.80); Red Cell Distribution Width 14.4 % (11.0-16.0); White Blood Count 4.1 X10*3/uL (4.8-10.8)
[2022-10-03 14:21] LABS: Anion Gap 15 (12-20); Blood Urea Nitrogen 22 mg/dL (9-16); Calcium 9.4 mg/dL (8.4-10.2); Carbon Dioxide 21 mmol/L (22-29); Chloride 111 mmol/L (96-108); Creatinine Clr Calc Pharmacy 83.9; Estimated Glomerular Filt Rate > 60; Glucose Random 84 mg/dL (60-115); Potassium 3.9 mmol/L (3.3-5.1); Sodium 143 mmol/L (135-145)
[2022-10-03 14:29] LABS: B Type Natriuretic Peptide 36 pg/mL (<100); Troponin-I High Sensitivity 6.1 ng/L (<3.5-35.0)
--- NOTE | 2022-10-03 15:10 | PC.NURSE ---
patient sleeping in bed, respirations equal and unlabored.
[2022-10-03 15:44] VITALS: BP 135/60; PULSE 59; RESP 16; TEMP 37; O2SAT 100
== END 2022-10-03 16:31 | disposition home or self-care (01) ==
PROVIDERS: Emergency Provider Emergency Medicine
DX: R07.9 Chest pain, unspecified (principal); I44.7 Left bundle-branch block, unspecified; R60.0 Localized edema; R06.00 Dyspnea, unspecified; Z79.899 Other long term (current) drug therapy; Z79.82 Long term (current) use of aspirin; Z79.02 Long term (current) use of antithrombotics/antiplatelets
CPT/HCPCS: 36415; 71046; 80048; 83880; 84484; 85025; 93005; 96374; 99284; J1940

== ENCOUNTER → 2022-10-03 12:27 | Outpatient (BNV) | payer MEDICARE, MEDICAID, SELFPAY | PROVIDERS: Emergency Provider Emergency Medicine; Visit Provider Internal Medicine | DX: R00.1 Bradycardia, unspecified (principal) | CPT/HCPCS: 93010 ==

== ENCOUNTER 2022-11-04 12:30 | Outpatient (REF) | payer MEDICARE, MEDICAID, SELFPAY ==
[2022-11-04 13:11] LABS: MANUAL DIFF FLAG NO
[2022-11-04 13:25] LABS: Basophils Absolute Auto 0.1 X10*3/uL (0.0-0.2); Eosinophils Absolute Auto 0.3 X10*3/uL (0.0-0.4); Eosinophils Percent Auto 4.7 % (0-4); Hematocrit 32.7 % (42.0-52.0); Hemoglobin 10.6 g/dl (14.0-18.0); Imm Gran Abs Auto 0.01 X10*3/uL (0.00-0.03); Imm Gran Pct Auto 0.2 % (0.0-0.4); Lymphocytes Absolute Auto 1.4 X10*3/uL (1.2-4.9); Lymphocytes Percent Auto 23.9 % (20-40); Mean Corpuscular HGB Conc 32.4 g/dl (31.0-36.0); Mean Corpuscular Hemoglobin 31.5 pg (27.0-33.0); Mean Corpuscular Volume 97.3 fL (80.0-98.0); Mean Platelet Volume 9.7 fL (9.4-12.4); Monocytes Absolute Auto 0.8 X10*3/uL (0.1-1.2); Monocytes Percent Auto 13.3 % (2-11); Neutrophils Absolute Auto 3.4 x10*3/uL (2.0-8.3); Neutrophils Percent Auto 56.9 % (45-73); Platelet Count 256 X10*3/uL (160-400); Red Blood Count 3.36 X10*6/uL (4.60-5.80); Red Cell Distribution Width 14.5 % (11.0-16.0)
[2022-11-04 13:48] LABS: Alanine Aminotransferase 12 U/L (0-40); Albumin Level 4.2 g/dL (3.5-5.0); Alkaline Phosphatase 122 U/L (39-117); Anion Gap 11 (12-20); Aspartate Amino Transferase 35 U/L (5-37); Bilirubin Total 0.6 mg/dL (0.0-1.0); Blood Urea Nitrogen 24 mg/dL (9-16); Calcium 9.6 mg/dL (8.4-10.2); Carbon Dioxide 30 mmol/L (22-29); Chloride 104 mmol/L (96-108); Estimated Glomerular Filt Rate > 60; Glucose Random 93 mg/dL (60-115); Iron 58 mcg/dL (45-160); Percent Iron Saturation 18 % (15-50); Sodium 141 mmol/L (135-145); Total Iron Binding Capacity 317 mcg/dL (228-428); Total Protein 7.1 g/dL (6.5-8.0); Unsaturated Iron Binding 259 ug/dL
[2022-11-04 14:07] LABS: Thyroid Stimulating Hormone 1.54 uIU/mL (0.32-4.0)
[2022-11-04 14:10] LABS: B Type Natriuretic Peptide 57 pg/mL (<100)
== END 2022-11-04 12:31 | disposition home or self-care (01) ==
LOC: HO.10HDL 12:30
PROVIDERS: Visit Provider Internal Medicine
DX: I25.10 Atherosclerotic heart disease of native coronary artery without angina pectoris (principal); K21.9 Gastro-esophageal reflux disease without esophagitis; I10 Essential (primary) hypertension; D64.9 Anemia, unspecified; R60.0 Localized edema
CPT/HCPCS: 36415; 80053; 83540; 83880; 84443; 85025

== ENCOUNTER → 2022-11-27 12:43 | Outpatient (REF) | payer MEDICARE, MEDICAID, SELFPAY ==
--- NOTE | 2022-11-27 14:00 | CA_ITS ---
Transthoracic Echocardiogram Patient (Last, First, Middle): Durga Rajput, Gender: Male Date of : 1955 Age: 67 Procedure Date: 11/27/2022 Procedure Type: Transthoracic Echocardiogram Location: OP Height: 177.8 cm Weight: 88.51 kg BSA: 2.07 m2 Heart Rate: 62 bpm BP: 155 / 80 mmHg Balancer: JHONNY Referring MD: Naseem Alford MD Service Manager: Harry South MD Symptoms: R60.9 EDEMA I25.10 ASCDASCD W/O ANGINA Study Quality: Adequate ECG Rhythm: Sinus Conclusions: - 1. Mildly reduced LV ejection fraction with mild LVH with impaired relaxation filling pattern with LVEF of 45-50% 2. Normal cardiac valvular Doppler 3. Normal RV systolic pressure 4. No gross pericardial effusion Findings Left Ventricle Normal left ventricular cavity size. There is mildly increased left ventricular wall thickness. The left ventricular systolic function is mildly decreased. The visually estimated ejection fraction is between 45-50%. Spectral Doppler is indicative of an impaired relaxation filling pattern. E/E prime ratio is between 8 and 15 consistent with indeterminate filling pressures. Wall Motion Rest Echo Findings The inferoseptal wall, the basal inferior, and mid inferior segments are hypokinetic. All other scored wall segments showed normal motion. Right Ventricle Normal right ventricular cavity size and systolic function. Atria The left atrium is mildly dilated. There is no evidence of interatrial shunt. The right atrium is normal in size. Aortic Valve Normal aortic valve structure and function. There is no aortic valve stenosis. There is no aortic valve regurgitation. Mitral Valve Normal mitral valve structure and function. There is trace mitral valve regurgitation. There is no mitral valve stenosis. Pulmonic Valve The pulmonic valve is likely normal. There is trace pulmonic valve regurgitation. Tricuspid Valve Normal tricuspid valve structure. There is trace tricuspid valve regurgitation. The right ventricular systolic pressure is normal. The right ventricular systolic pressure is 23 mmHg. Normal right atrial pressure. There is no evidence of pulmonary hypertension. Great Vessels All visible segments of the aorta are normal in size. The pulmonary artery was not well visualized. Venous The inferior vena cava is normal in size and collapses greater than 50% with inspiration. Pericardium/Pleural There is no evidence of pericardial effusion. Prior Study Comparison Changes noted compared to prior study dated: 03/18/2022. LV systolic function has improved Measurements 2D Linear Measurements IVSd: 1.30 0.6-0.9/0.6-1.0 cm LVIDd: 4.90 3.9-5.3/4.2-5.9 cm LVIDd Index: 2.37 2.4-3.2/2.2-3.1 cm/m2 LVIDs: 3.80 2.0-3.6 cm LVPWd: 1.10 0.7-1.1 cm LA Diam: 3.70 2.7-3.8/3.0-4.0 cm LAIDs Index: 1.79 1.5-2.3 cm/m2 LV Mass: 282.22 67-162/88-224 g LV Mass Index: 136.34 43-95/49-115 g/m2 LVOT Diam: 2.20 3.0+(-)1.3 cm 2D Systolic Function EF 4C: 38.80 >55% EF 2C: 58.20 >55% EF BiP: 48.50 >55% Mitral Valve MV Pk E: 0.78 MV PK A: 1.03 MV Decel Time: 229.00 E/A: 0.80 E'Lateral: 9.14 E'Medial: 5.66 E/E' Med: 13.70 E/E' Lat: 8.50 PHT: 67.00 MVA PHT: 3.28 Decel Benzie: 3.39 Aortic Valve AoV Pk Darío: 1.59 AoV Mn Darío: 1.12 AoV VTI: 0.34 AoV Pk Grad: 10.00 Aov Mn Grad: 6.00 YUNIER Cont.VTI: 2.92 LVOT LVOT Pk Darío: 1.23 LVOT Mn Darío: 0.85 LVOT VTI: 0.26 LVOT Pk Grad: 6.00 LVOT Mn Grad: 3.00 LVOT Diam: 2.20 LVOT Area: 3.80 Diastolic Function MV Pk E: 0.78 MV Pk A: 1.03 E/A: 0.80 E'Medial: 5.66 E/E' Med: 13.70 E' Laterial: 9.14 E/E' Lat: 8.50 Right Ventricle TAPSE (mm): 28.10 TVS' Darío: 14.00 Tricuspid Valve TR Pk Darío: 2.22 TR Pk Grad: 20.00 RA Press: 3.00 RVSP: 23.00 Great Vessels Aorta Sinus of Valsalva: 3.70 2.0-3.5 cm Ao Asc: 3.40 2.1-3.4 cm Pulmonary Valve PV Pk Darío: 1.19 Peak PV Grad: 6.00 Updated in Other Vendor System with Status of Final Harry South MD electronically signed on 11/27/2022 3:47:06 PM with status of Final
== END ==
LOC: HO.CARD 12:43
PROVIDERS: PCP Internal Medicine; Visit Provider Internal Medicine
DX: R60.9 Edema, unspecified (principal); I25.10 Atherosclerotic heart disease of native coronary artery without angina pectoris
CPT/HCPCS: 93306

== ENCOUNTER → 2022-11-27 14:00 | Outpatient (BNV) | payer MEDICARE, MEDICAID, SELFPAY | PROVIDERS: PCP Internal Medicine; Visit Provider Internal Medicine Cardiovascular Disease | DX: I25.10 Atherosclerotic heart disease of native coronary artery without angina pectoris (principal) | CPT/HCPCS: 93306 ==

== ENCOUNTER 2022-12-03 03:41 | Emergency (ER) | payer MEDICARE, MEDICAID, SELFPAY ==
--- NOTE | 2022-12-03 | ECG_ITS ---
Test Reason : CP Blood Pressure : / mmHG Vent. Rate : 062 BPM Atrial Rate : 062 BPM P-R Int : 186 ms QRS Dur : 142 ms QT Int : 472 ms P-R-T Axes : 044 -03 069 degrees QTc Int : 479 ms Normal sinus rhythm Left bundle branch block Abnormal ECG When compared with ECG of 03-OCT-2022 12:27, No significant change was found Referred By: Generic ED Physician Electronically Signed By:ANA LUISA MILLER
[2022-12-03 03:51] VITALS: BP 109/67; BP 188/90; PULSE 63; PULSE 70; RESP 13; TEMP 36.4; O2SAT 100; BMI 31.2
[2022-12-03 04:26] LABS: MANUAL DIFF FLAG NO
[2022-12-03 04:27] LABS: Basophils Percent Auto 0.7 % (0-2); Eosinophils Absolute Auto 0.2 X10*3/uL (0.0-0.4); Eosinophils Percent Auto 4.4 % (0-4); Hematocrit 29.3 % (42.0-52.0); Hemoglobin 9.4 g/dl (14.0-18.0); Imm Gran Abs Auto 0.01 X10*3/uL (0.00-0.03); Imm Gran Pct Auto 0.2 % (0.0-0.4); Lymphocytes Absolute Auto 1.3 X10*3/uL (1.2-4.9); Lymphocytes Percent Auto 29.2 % (20-40); Mean Corpuscular HGB Conc 32.1 g/dl (31.0-36.0); Mean Corpuscular Hemoglobin 31.1 pg (27.0-33.0); Mean Platelet Volume 8.5 fL (9.4-12.4); Monocytes Absolute Auto 0.5 X10*3/uL (0.1-1.2); Monocytes Percent Auto 11.4 % (2-11); Neutrophils Absolute Auto 2.3 x10*3/uL (2.0-8.3); Neutrophils Percent Auto 54.1 % (45-73); Platelet Count 255 X10*3/uL (160-400); Red Blood Count 3.02 X10*6/uL (4.60-5.80); Red Cell Distribution Width 14.6 % (11.0-16.0); White Blood Count 4.3 X10*3/uL (4.8-10.8)
--- NOTE | 2022-12-03 04:29 | MHC.EDTECH ---
patient came via ems ,ekg taken and was read by provider ,blood drawn and sent to lab ,pt was change into hospital attire and hooked up to leaf blender ,Pt sleeping warm blanket given ,will continue to monitor .
[2022-12-03 04:30] VITALS: BP 106/61; PULSE 58; RESP 12; TEMP 36.3; O2SAT 100
[2022-12-03 04:40] LABS: Anion Gap 18 (12-20); Blood Urea Nitrogen 22 mg/dL (9-16); Calcium 9.5 mg/dL (8.4-10.2); Carbon Dioxide 20 mmol/L (22-29); Chloride 107 mmol/L (96-108); Creatinine Clr Calc Pharmacy 101.5; Estimated Glomerular Filt Rate > 60; Glucose Random 91 mg/dL (60-115); Sodium 141 mmol/L (135-145)
[2022-12-03 04:45] LABS: Troponin-I High Sensitivity 4.7 ng/L (<3.5-35.0)
--- NOTE | 2022-12-03 04:47 | ED_ITS ---
HPI - Chest Pain General Chief Complaint: Chest Pain Stated Complaint: Chest Pain, SOB and possible seizure Time Seen by Provider: 12/03/22 04:37 History of Present Illness HPI narrative: Patient is 67 years old with history of coronary disease status post LAD stent cardiac catheterization in01/2022 patent LAD stent left bundle-branch block LV ejection fraction 35-40% been homeless since 01/20 had multiple ED visits to [facility] and [facility] was just seen there 2 days ago and discharged comes here as he had the passing-out episodes again while he was urinating according to patient patient did not not sleep for a while sleeps only few hours [facility] and while urinating today he passed out no seizures activity notice PCP wanted to give him seizure medication but had EEG done in the past which was negative no tongue bite no incontinence patient also complaining of chest pain which is going on for a while with multiple tropes negative no acute EKG changes patient does not seem to be in any distress on arrival trying to sleep Related Data Home Medications Medication Instructions Recorded Confirmed allopurinol 100 mg tablet 100 mg PO DAILY@1700 08/07/21 09/16/22 isosorbide mononitrate 30 mg 30 mg PO DAILY@0800 08/07/21 09/16/22 tablet,extended release 24 hr losartan 25 mg tablet 25 mg PO DAILY@0800 08/07/21 09/16/22 metoprolol succinate 50 mg 50 mg PO BID 08/07/21 09/16/22 tablet,extended release 24 hr fluticasone propionate 50 1 spray intranasal DAILY PRN 05/16/22 09/16/22 mcg/actuation nasal Allergy Symptoms spray,suspension aspirin 81 mg tablet,delayed 81 mg PO DAILY 06/04/22 09/16/22 release atorvastatin 80 mg tablet 80 mg PO BEDTIME 06/04/22 09/16/22 omeprazole 40 mg capsule,delayed 40 mg PO BID 07/23/22 09/16/22 release sucralfate 100 mg/mL oral 10 ml PO QIDACHS 07/23/22 09/16/22 suspension (Carafate) furosemide 20 mg tablet 20 mg PO DAILY 08/27/22 09/16/22 metoprolol succinate 25 mg 25 mg PO BID 09/16/22 09/16/22 tablet,extended release 24 hr Previous Rx's Medication Instructions Recorded benzonatate 200 mg capsule 200 mg PO TID PRN cough #20 caps 09/22/22 Allergies Allergy/AdvReac Type Severity Reaction Status Date / Time polyethylene glycol Allergy Itching Verified 07/23/22 16:49 Iodinated Contrast Media AdvReac Severe PARALYSIS/N Verified 08/28/22 09:12 [CONTRAST, IV] UMBNESS Review of Systems 2 Review of Systems: Yes all other systems are reviewed and are negative [facility] Past Medical History Medical History Syncope Atypical chest pain COVID-19 Ischemic heart disease due to coronary artery obstruction Left bundle branch block Airway polyps NICM (nonischemic cardiomyopathy) Chest pain Incarcerated left inguinal hernia Hypertension Gout Peptic ulcer disease Left bundle branch block Coronary artery disease No known health problems Surgical History History of partial gastrectomy H/O heart artery stent Family History Family History Father Myocardial infarction Social History Social History Household Members: Other Household Members Other:: with friends, staying with friends Housing: Other Housing Other:: staying with a friend and financial assistance to find a hotel room Do you presently have visiting nurse or other home services: No Alcohol intake: never Patient Tobacco Use Status: Never used Tobacco Second Hand Smoke Exposure: Yes (friends he stays with smoke outside) Advance Directives: Yes Advance Directives on File: Yes Advance Directives Date on File: 05/20/22 service: No Current occupational status: unemployed Physical Exam 2 Vital Signs: Vital Signs: Last Vital Signs Temp 97.6 F 12/03/22 05:30 Pulse 59 12/03/22 05:30 Resp 16 12/03/22 05:30 BP 134/61 12/03/22 05:30 Pulse Ox 98 12/03/22 05:30 O2 Del Method Room Air 12/03/22 05:30 BMI result Body Mass Index 31.2 Appearance: Alert. Oriented X3. No acute distress. Eyes: PERRLA, No Nystagmus ENT: Pharynx normal. Oral Mucosa moist Neck: Normal inspection. Neck supple. CVS: Normal heart rate and rhythm. Pulses normal. Respiratory: No respiratory distress. Equal air entry bilateral, no wheezing/rales/rhonchi Abdomen: Soft and nontender. Bowel sounds are present, no mass palpable, no CVA tenderness Skin: Skin warm and dry. Normal skin color. Normal skin turgor. Extremities: No lower extremity edema. No calf tenderness Neuro: Oriented X 3. No motor deficit. No sensory deficit.No cerebellar signs , cranial nerves II-XII intact Medical Decision Making Medical Decision Making [facility] Narrative: Patient with multifactorial reasons of passing out with were sleep workup negative so far been to hospital multiple times with same situation symptoms likely from drop attacks from lack of sleep. Will check orthostatic discharge patient home advised to follow up as outpatient Differential Diagnosis Differential Diagnoses: The differential diagnosis associated with the presentation includes Drop attacks/insomnia/seizure/syncope/ACS Admission/Observation Consideration of admission/observation: Escalation of care including admission/observation considered Lab Data [facility] Lab Attestation statement: I reviewed the patient's lab results. 12/03/22 04:23 12/03/22 04:23 Labs: Lab Results 12/03/22 Range/Units 04:23 WBC 4.3 L (4.8-10.8) X10*3/uL RBC 3.02 L (4.60-5.80) X10*6/uL Hgb 9.4 L (14.0-18.0) g/dl Hct 29.3 L (42.0-52.0) % MCV 97.0 (80.0-98.0) fL MCH 31.1 (27.0-33.0) pg MCHC 32.1 (31.0-36.0) g/dl RDW 14.6 (11.0-16.0) % Plt Count 255 (160-400) X10*3/uL MPV 8.5 L (9.4-12.4) fL Immature Gran % (Auto) 0.2 (0.0-0.4) % Neut % (Auto) 54.1 (45-73) % Lymph % (Auto) 29.2 (20-40) % Parker % (Auto) 11.4 H (2-11) % Eos % (Auto) 4.4 H (0-4) % Baso % (Auto) 0.7 (0-2) % Lymph # (Auto) 1.3 (1.2-4.9) X10*3/uL Parker # (Auto) 0.5 (0.1-1.2) X10*3/uL Eos # (Auto) 0.2 (0.0-0.4) X10*3/uL Baso # (Auto) 0.0 (0.0-0.2) X10*3/uL Abs Immat Gran (auto) 0.01 (0.00-0.03) X10*3/uL Absolute Neuts (auto) 2.3 (2.0-8.3) x10*3/uL Absolute Nucleated RBC 0.000 (0.0-0.012) X10*3/uL Nucleated RBC % (auto) 0.0 (0.0-0.2) /100WBC Sodium 141 (135-145) mmol/L Potassium 4.0 (3.3-5.1) mmol/L Chloride 107 (96-108) mmol/L Carbon Dioxide 20 L (22-29) mmol/L Anion Gap 18 (12-20) BUN 22 H (9-16) mg/dL Creatinine 0.82 (0.5-1.4) mg/dL Estim Creat Clear Calc 101.5 Estimated GFR > 60 Random Glucose 91 (60-115) mg/dL Calcium 9.5 (8.4-10.2) mg/dL Troponin I High Sens 4.7 (<3.5-35.0) ng/L B-Natriuretic Peptide 22 (<100) pg/mL Independent Interpretation I performed an independent interpretation of an: EKG Interpretation: No sinus rhythm heart rate 62 beats per minute left bundle branch block no acute ST-T changes no acute ischemia Discharge Plan Discharge Clinical Impression: Atypical chest pain, Insomnia, Drop attack Patient Disposition: Home, Self-Care Instructions: Chest Pain (ED), Syncope (ED), Insomnia (ED) Additional Instructions: Your syncope episode is likely from lack of sleep Sleep well and follow-up PCP Prescriptions: No Action fluticasone propionate 50 mcg/actuation [place],Suspension 1 spray INTRANASAL DAILY PRN (Reason: Allergy Symptoms) Rx Instructions: administer into each nostril allopurinol 100 mg Tablet 100 mg PO DAILY@1700 losartan 25 mg Tablet 25 mg PO DAILY@0800 isosorbide mononitrate 30 mg Tablet Extended Release 24 Hr 30 mg PO DAILY@0800 metoprolol succinate 50 mg Tablet Extended Release 24 Hr 50 mg PO BID atorvastatin 80 mg tablet 80 mg PO BEDTIME aspirin 81 mg tablet,delayed release (DR/EC) 81 mg PO DAILY sucralfate [Carafate] 100 mg/mL suspension 10 ml PO QIDACHS omeprazole 40 mg capsule,delayed release(DR/EC) 40 mg PO BID furosemide 20 mg tablet 20 mg PO DAILY metoprolol succinate 25 mg tablet extended release 24 hr 25 mg PO BID benzonatate 200 mg capsule 200 mg PO TID PRN (Reason: cough) Qty: 20 0RF
[2022-12-03 04:49] LABS: B Type Natriuretic Peptide 22 pg/mL (<100)
[2022-12-03 05:05] VITALS: BP 140/68; PULSE 60
[2022-12-03 05:06] VITALS: BP 147/60; PULSE 60
[2022-12-03 05:09] VITALS: BP 152/65; PULSE 68
--- NOTE | 2022-12-03 05:12 | MHC.EDTECH ---
PATIENT ORTHOSTATICS VITALS TAKEN ,PT BACK IN BED SLEEPING .
--- NOTE | 2022-12-03 05:22 | MHC.EDTECH ---
PATIENT ATE A HAM SANDWICH AND DRANK A CAN OF [place] .
[2022-12-03 05:30] VITALS: BP 134/61; PULSE 59; RESP 16; TEMP 36.4; O2SAT 98
--- NOTE | 2022-12-03 07:11 | PC.NURSE ---
iv removed at discharge. pt ambulatory at discharge. pt calm and cooperative. pt provided with discharge packet. pt verbalized understanding of discharge plan
== END 2022-12-03 07:18 | disposition home or self-care (01) ==
PROVIDERS: Emergency Provider Internal Medicine; PCP Internal Medicine
DX: R07.89 Other chest pain (principal); G47.00 Insomnia, unspecified; R55 Syncope and collapse; R06.02 Shortness of breath; I10 Essential (primary) hypertension; I44.7 Left bundle-branch block, unspecified
CPT/HCPCS: 36415; 80048; 83880; 84484; 85025; 93005; 99284

== ENCOUNTER 2022-12-09 14:39 | Outpatient (REF) | payer MEDICARE, MEDICAID, SELFPAY ==
[2022-12-09 15:03] LABS: Basophils Percent Auto 0.9 % (0-2); Eosinophils Absolute Auto 0.2 X10*3/uL (0.0-0.4); Eosinophils Percent Auto 4.2 % (0-4); Hematocrit 31.4 % (42.0-52.0); Hemoglobin 9.8 g/dl (14.0-18.0); Imm Gran Abs Auto 0.02 X10*3/uL (0.00-0.03); Imm Gran Pct Auto 0.5 % (0.0-0.4); Lymphocytes Absolute Auto 1.1 X10*3/uL (1.2-4.9); Lymphocytes Percent Auto 24.7 % (20-40); MANUAL DIFF FLAG SCAN; Mean Corpuscular HGB Conc 31.2 g/dl (31.0-36.0); Mean Corpuscular Hemoglobin 31.7 pg (27.0-33.0); Mean Corpuscular Volume 101.6 fL (80.0-98.0); Mean Platelet Volume 9.2 fL (9.4-12.4); Monocytes Absolute Auto 0.6 X10*3/uL (0.1-1.2); Monocytes Percent Auto 13.4 % (2-11); Neutrophils Absolute Auto 2.4 x10*3/uL (2.0-8.3); Neutrophils Percent Auto 56.3 % (45-73); PLT CLUMP 1; Platelet Count 254 X10*3/uL (160-400); Red Blood Count 3.09 X10*6/uL (4.60-5.80); Red Cell Distribution Width 15.1 % (11.0-16.0); SCAN SMEAR FLAG 1; White Blood Count 4.3 X10*3/uL (4.8-10.8)
[2022-12-09 15:15] LABS: Anion Gap 15 (12-20); Blood Urea Nitrogen 24 mg/dL (9-16); Calcium 9.6 mg/dL (8.4-10.2); Carbon Dioxide 24 mmol/L (22-29); Chloride 108 mmol/L (96-108); Estimated Glomerular Filt Rate > 60; Glucose Random 92 mg/dL (60-115); Iron 55 mcg/dL (45-160); Percent Iron Saturation 18 % (15-50); Potassium 4.2 mmol/L (3.3-5.1); Sodium 143 mmol/L (135-145); Total Iron Binding Capacity 301 mcg/dL (228-428); Unsaturated Iron Binding 246 ug/dL
[2022-12-09 16:11] LABS: SLIDE REVIEW VERIFIED
== END 2022-12-09 14:40 | disposition home or self-care (01) ==
LOC: HO.LAB 14:39
PROVIDERS: PCP Internal Medicine; Visit Provider Internal Medicine
DX: D64.9 Anemia, unspecified (principal); I50.9 Heart failure, unspecified; I25.10 Atherosclerotic heart disease of native coronary artery without angina pectoris
CPT/HCPCS: 36415; 80048; 83540; 85025

== ENCOUNTER 2022-12-31 12:41 | Outpatient (REF) | payer MEDICARE, MEDICAID, SELFPAY ==
--- NOTE | 2022-12-31 12:46 | EEG_ITS ---
This is a 16-channel EEG with an EKG lead. The patient is reported awake and drowsy during the tracing. Background EEG rhythm is low amplitude fast to low amplitude mixed theta-beta with no obvious asymmetry and paroxysmal tendency. Photic stimulation does not produce any significant abnormality. Hyperventilation is not performed. Cardiac lead does not reveal any significant abnormality. No sharp wave spikes or paroxysmal tendency noted. IMPRESSION: Mild slowing with no evidence of seizure disorder. MD LES Tesfaye/YUMIKO / [phone]
== END 2022-12-31 12:42 | disposition home or self-care (01) ==
LOC: HO.NEURO 12:41
PROVIDERS: PCP Internal Medicine; Visit Provider Internal Medicine
DX: R55 Syncope and collapse (principal)
CPT/HCPCS: 95816

== ENCOUNTER 2023-02-27 12:54 | Emergency (ER) | payer MEDICARE, MEDICAID, SELFPAY ==
--- NOTE | 2023-02-27 14:52 | ED.GENADULT ---
HPI - General Adult General Stated complaint: CP FROM [facility] PER EMS Related Data Home Medications ?Medication ?Instructions ?Recorded ?Confirmed allopurinol 100 mg tablet 100 mg PO DAILY@1700 08/07/21 04/03/23 isosorbide mononitrate 30 mg 30 mg PO DAILY@0800 08/07/21 04/03/23 tablet,extended release 24 hr losartan 25 mg tablet 25 mg PO DAILY@0800 08/07/21 04/03/23 metoprolol succinate 50 mg 50 mg PO DAILY 08/07/21 04/04/23 tablet,extended release 24 hr fluticasone propionate 50 1 spray intranasal DAILY PRN 05/16/22 04/03/23 mcg/actuation nasal Allergy Symptoms spray,suspension aspirin 81 mg tablet,delayed 81 mg PO DAILY 06/04/22 04/03/23 release atorvastatin 80 mg tablet 80 mg PO BEDTIME 06/04/22 04/03/23 furosemide 20 mg tablet 40 mg PO DAILY 08/27/22 04/03/23 metoprolol succinate 25 mg 25 mg PO DAILY 09/16/22 04/04/23 tablet,extended release 24 hr finasteride 5 mg tablet 5 mg PO DAILY 04/04/23 04/04/23 omeprazole 40 mg capsule,delayed 40 mg PO BID 04/04/23 04/04/23 release tamsulosin 0.4 mg capsule 0.4 mg PO DAILY 04/04/23 04/04/23 Previous Rx's ?Medication ?Instructions ?Recorded doxycycline monohydrate 100 mg 100 mg PO Q12H #6 caps 04/07/23 capsule Allergies Allergy/AdvReac Type Severity Reaction Status Date / Time polyethylene glycol Allergy Itching Verified 04/03/23 10:26 polyethylene glycol 3350 Allergy Itching Verified 04/03/23 10:26 [From Miralax] [facility], [facility] Past Medical History Medical History (Updated 06/17/23 @ 01:55 by Chris Brock) CHF (congestive heart failure) Syncope Atypical chest pain COVID-19 Ischemic heart disease due to coronary artery obstruction Left bundle branch block Airway polyps NICM (nonischemic cardiomyopathy) Chest pain Incarcerated left inguinal hernia Hypertension Gout Peptic ulcer disease Left bundle branch block Coronary artery disease No known health problems Surgical History History of partial gastrectomy H/O heart artery stent Family History Family History Father Myocardial infarction Social History Social History Household Members: None Household Members Other:: with friends, staying with friends Housing: Homeless Housing Other:: staying with a friend and financial assistance to find a hotel room Do you presently have visiting nurse or other home services: No Alcohol intake: current Alcohol intake frequency: does not drink Patient Tobacco Use Status: Never used Tobacco Second Hand Smoke Exposure: Yes (friends he stays with smoke outside) Advance Directives Date on File: 05/20/22 service: No Current occupational status: unemployed Course Course Course Narrative: RME- 67 year old male presents for evaluation of chest pain. he was unwilling to get into the EKG chair. Patient left prior to triage. He walked out of the ER with his bags. He was well appearing when walking out Discharge Plan Discharge Clinical Impression: Chest pain Patient Disposition: Left W/O Completing Treatment Prescriptions: No Action fluticasone propionate 50 mcg/actuation [place],Suspension 1 spray INTRANASAL DAILY PRN (Reason: Allergy Symptoms) Rx Instructions: administer into each nostril allopurinol 100 mg Tablet 100 mg PO DAILY@1700 losartan 25 mg Tablet 25 mg PO DAILY@0800 isosorbide mononitrate 30 mg Tablet Extended Release 24 Hr 30 mg PO DAILY@0800 metoprolol succinate 50 mg Tablet Extended Release 24 Hr 50 mg PO DAILY atorvastatin 80 mg tablet 80 mg PO BEDTIME aspirin 81 mg tablet,delayed release (DR/EC) 81 mg PO DAILY furosemide 20 mg tablet 40 mg PO DAILY metoprolol succinate 25 mg tablet extended release 24 hr 25 mg PO DAILY omeprazole 40 mg capsule,delayed release(DR/EC) 40 mg PO BID tamsulosin 0.4 mg capsule 0.4 mg PO DAILY finasteride 5 mg tablet 5 mg PO DAILY doxycycline monohydrate 100 mg Capsule 100 mg PO Q12H Qty: 6 0RF Discharge Date/Time: 02/27/23 15:10
== END 2023-02-27 15:10 | disposition left against medical advice (07) ==
PROVIDERS: Emergency Provider Emergency Medicine; PCP Internal Medicine
DX: R07.89 Other chest pain (principal); Z79.899 Other long term (current) drug therapy

== ENCOUNTER 2023-03-18 14:50 | Outpatient (REF) | payer MEDICARE, MEDICAID, SELFPAY ==
[2023-03-18 15:11] LABS: MANUAL DIFF FLAG NO
[2023-03-18 15:32] LABS: Basophils Percent Auto 0.5 % (0-2); Eosinophils Absolute Auto 0.1 X10*3/uL (0.0-0.4); Eosinophils Percent Auto 1.5 % (0-4); Hemoglobin 9.1 g/dl (14.0-18.0); Imm Gran Abs Auto 0.02 X10*3/uL (0.00-0.03); Imm Gran Pct Auto 0.3 % (0.0-0.4); Mean Corpuscular HGB Conc 32.5 g/dl (31.0-36.0); Mean Corpuscular Hemoglobin 31.8 pg (27.0-33.0); Mean Corpuscular Volume 97.9 fL (80.0-98.0); Mean Platelet Volume 9.2 fL (9.4-12.4); Monocytes Absolute Auto 0.9 X10*3/uL (0.1-1.2); Monocytes Percent Auto 12.1 % (2-11); Neutrophils Absolute Auto 5.5 x10*3/uL (2.0-8.3); Neutrophils Percent Auto 72.6 % (45-73); Platelet Count 326 X10*3/uL (160-400); Red Blood Count 2.86 X10*6/uL (4.60-5.80); Red Cell Distribution Width 14.6 % (11.0-16.0); White Blood Count 7.5 X10*3/uL (4.8-10.8)
[2023-03-18 15:49] LABS: Alanine Aminotransferase 11 U/L (0-40); Albumin Level 3.8 g/dL (3.5-5.0); Alkaline Phosphatase 108 U/L (39-117); Anion Gap 12 (12-20); Aspartate Amino Transferase 19 U/L (5-37); Bilirubin Total 0.4 mg/dL (0.0-1.0); Blood Urea Nitrogen 25 mg/dL (9-16); Calcium 9.5 mg/dL (8.4-10.2); Carbon Dioxide 29 mmol/L (22-29); Chloride 109 mmol/L (96-108); Estimated Glomerular Filt Rate > 60; Glucose Random 103 mg/dL (60-115); Potassium 4.2 mmol/L (3.3-5.1); Sodium 146 mmol/L (135-145); Total Protein 6.8 g/dL (6.5-8.0)
[2023-03-18 15:55] LABS: B Type Natriuretic Peptide 76 pg/mL (<100)
== END 2023-03-18 14:51 | disposition home or self-care (01) ==
LOC: HO.LAB 14:50
PROVIDERS: PCP Internal Medicine; Visit Provider Internal Medicine
DX: I42.9 Cardiomyopathy, unspecified (principal); R60.9 Edema, unspecified; I10 Essential (primary) hypertension
CPT/HCPCS: 36415; 80053; 83880; 85025

== ENCOUNTER 2023-03-23 17:52 | Emergency (ER) | payer MEDICARE, MEDICAID, SELFPAY ==
--- NOTE | ~2023-03-23 | XR_ITS ---
EXAMINATION: XR CHEST CLINICAL INFORMATION: Chest pain and shortness of breath COMPARISON: 10/03/2022 and selected priors TECHNIQUE: 2 views of the chest were obtained. FINDINGS: Diffusely increased lung markings are again noted. 08/22/[address] suggests pulmonary fibrosis. No focal consolidation or effusion. No pneumothorax. Stable lower lung volumes. Stable heart and mediastinum. No mass or adenopathy. No pneumomediastinum. Postsurgical changes in the upper abdomen. Nonobstructive gas pattern. XR/XR chest 2V IMPRESSION: Chronic increase in lung markings. Recent chest CT suggestive of pulmonary fibrosis. Consider pulmonary medicine consultation and pulmonary function studies.
[2023-03-23 18:09] VITALS: BP 159/77; PULSE 86; RESP 18; TEMP 37.3; O2SAT 99; BMI 32.5
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
--- NOTE | 2023-03-23 18:14 | ECG_ITS ---
Test Reason : CHEST PAIN Blood Pressure : / mmHG Vent. Rate : 076 BPM Atrial Rate : 076 BPM P-R Int : 168 ms QRS Dur : 132 ms QT Int : 430 ms P-R-T Axes : 052 003 096 degrees QTc Int : 483 ms Normal sinus rhythm Left bundle branch block Abnormal ECG When compared with ECG of 03-DEC-2022 03:50, No significant change was found Referred By: Ana Holder Electronically Signed By:Pio Bazan
[2023-03-23 18:42] VITALS: BP 148/63; PULSE 78; RESP 18; TEMP 36.9; O2SAT 98
--- NOTE | 2023-03-23 19:05 | PC.NURSE ---
Belongings secured in laundry room in POD on first and second shelf, labels on belongings
--- NOTE | 2023-03-23 19:40 | MHC.EDTECH ---
Ptient given dinner tray
[2023-03-23] MEDS: Furosemide 40 MG/4 ML VIAL IVPUSH (20:33)
[2023-03-23 20:35] LABS: MANUAL DIFF FLAG NO
[2023-03-23 20:36] LABS: Basophils Percent Auto 0.8 % (0-2); Eosinophils Absolute Auto 0.1 X10*3/uL (0.0-0.4); Eosinophils Percent Auto 2.6 % (0-4); Hematocrit 27.2 % (42.0-52.0); Hemoglobin 8.8 g/dl (14.0-18.0); Imm Gran Abs Auto 0.02 X10*3/uL (0.00-0.03); Imm Gran Pct Auto 0.4 % (0.0-0.4); Lymphocytes Absolute Auto 0.8 X10*3/uL (1.2-4.9); Lymphocytes Percent Auto 16.6 % (20-40); Mean Corpuscular HGB Conc 32.4 g/dl (31.0-36.0); Mean Corpuscular Volume 95.8 fL (80.0-98.0); Mean Platelet Volume 9.1 fL (9.4-12.4); Monocytes Absolute Auto 0.6 X10*3/uL (0.1-1.2); Monocytes Percent Auto 11.5 % (2-11); Neutrophils Absolute Auto 3.4 x10*3/uL (2.0-8.3); Neutrophils Percent Auto 68.1 % (45-73); Platelet Count 313 X10*3/uL (160-400); Red Blood Count 2.84 X10*6/uL (4.60-5.80); Red Cell Distribution Width 14.5 % (11.0-16.0); White Blood Count 5.1 X10*3/uL (4.8-10.8)
[2023-03-23 20:43] LABS: Prothrombin Time 11.9 SEC (11.1-13.3)
[2023-03-23 20:47] LABS: Ethanol < 10 mg/dL
[2023-03-23 20:50] LABS: Alanine Aminotransferase 10 U/L (0-40); Albumin Level 3.7 g/dL (3.5-5.0); Alkaline Phosphatase 116 U/L (39-117); Anion Gap 11 (12-20); Aspartate Amino Transferase 18 U/L (5-37); Bilirubin Direct 0.2 mg/dL (0.0-0.5); Bilirubin Total 0.3 mg/dL (0.0-1.0); Blood Urea Nitrogen 25 mg/dL (9-16); Carbon Dioxide 26 mmol/L (22-29); Chloride 109 mmol/L (96-108); Creatinine Clr Calc Pharmacy 81.2; Estimated Glomerular Filt Rate > 60; Glucose Random 131 mg/dL (60-115); Magnesium 2.1 mg/dL (1.6-2.6); Potassium 3.7 mmol/L (3.3-5.1); Sodium 142 mmol/L (135-145); Total Protein 6.5 g/dL (6.5-8.0)
[2023-03-23 20:57] LABS: Troponin-I High Sensitivity 10.1 ng/L (<3.5-35.0)
[2023-03-23 21:02] LABS: B Type Natriuretic Peptide 40 pg/mL (<100)
[2023-03-23 21:29] LABS: Amphetamine Screen Urine Not Detected (Not Detect); Barbiturates, Urine Not Detected (Not Detect); Benzodiazepines Screen Urine Not Detected (Not Detect); Cannabinoid Screen Urine Not Detected (Not Detect); Cocaine Screen Urine Not Detected (Not Detect); Fentanyl, urine Not Detected (Not Detect); Opiate Screen Urine Not Detected (Not Detect); Phencyclidine Screen Urine Not Detected (Not Detect)
[2023-03-23 22:00] VITALS: BP 133/62; PULSE 73; RESP 12; O2SAT 100
--- NOTE | 2023-03-23 22:16 | PC.NURSE ---
pt output in urinal 450
[2023-03-24] MEDS: Acetaminophen 325 MG TABLET 975 MG PO (01:38)
[2023-03-24 06:27] VITALS: BP 106/65; PULSE 63; O2SAT 97
== END 2023-03-24 09:14 | disposition home or self-care (01) ==
PROVIDERS: Physician Assistant; Emergency Provider Internal Medicine; PCP Internal Medicine
DX: R60.0 Localized edema (principal); I11.0 Hypertensive heart disease with heart failure; I50.9 Heart failure, unspecified; F32.A Depression, unspecified; Z79.899 Other long term (current) drug therapy
CPT/HCPCS: 36415; 71046; 80048; 80076; 80307; 83735; 83880; 84484; 85025; 85610; 93005; 96374; 99284; 99285; J1940

== ENCOUNTER → 2023-03-23 18:14 | Outpatient (BNV) | payer MEDICARE, MEDICAID, SELFPAY | PROVIDERS: Emergency Provider Internal Medicine; PCP Internal Medicine; Visit Provider Internal Medicine Cardiovascular Disease | DX: I44.7 Left bundle-branch block, unspecified (principal) | CPT/HCPCS: 93010 ==

== ENCOUNTER 2023-03-24 21:03 | Emergency (ER) | payer MEDICARE, MEDICAID, SELFPAY ==
--- NOTE | 2023-03-24 | ECG_ITS ---
Test Reason : CHEST PAIN Blood Pressure : / mmHG Vent. Rate : 096 BPM Atrial Rate : 096 BPM P-R Int : 148 ms QRS Dur : 134 ms QT Int : 376 ms P-R-T Axes : 049 009 176 degrees QTc Int : 475 ms Sinus rhythm with frequent Premature ventricular complexes Possible Left atrial enlargement Left bundle branch block Abnormal ECG When compared with ECG of 23-MAR-2023 18:51, Premature ventricular complexes are now Present Referred By: Alba Singh Electronically Signed By:Pio Bazan
[2023-03-24 21:20] VITALS: BP 178/73; PULSE 101; PULSE 89; RESP 20; TEMP 36.9; O2SAT 100; O2SAT 99; BMI 31.7
--- NOTE | 2023-03-24 21:23 | ED.CHESTPAIN ---
HPI - Chest Pain General Chief Complaint: Chest Pain Stated Complaint: CHEST PAIN FOR 30 MIN Time Seen by Provider: 03/24/23 21:23 Source: patient Mode of arrival: ambulatory Limitations: no limitations History of Present Illness HPI narrative: 68-year-old male with history of syncope, atypical chest pain, left bundle-branch block, hypertension, peptic ulcer disease, coronary disease, cardiomyopathy, GI bleed with partial gastrectomy who presents emergency department for evaluation of shortness of breath and chest pain. Patient states approximately 20:00 hours he developed left-sided chest pain. Describes the pain is a pressure-like pain which was 9/10 at its worst. States the pain is been constant since onset and was present at the time of my evaluation. Patient also states that he had coffee-ground emesis x2 and diarrheal stool that looked like coffee-grounds as well. Patient states that he had a stomach ulcer 1976 and had a partial gastrectomy. Patient was seen in the emergency department yesterday, 03/23/2023 for bilateral lower extremity swelling , weeping edema from his left leg and weight gain. Patient was given Lasix 40 mg IV for his lower extremity edema and discharged home. Patient also requested a ?court-ordered ?psychiatric evaluation however this is not something that can be done from the emergency department and he was referred to outpatient psychiatry. Related Data Home Medications Medication Instructions Recorded Confirmed allopurinol 100 mg tablet 100 mg PO DAILY@1700 08/07/21 09/16/22 isosorbide mononitrate 30 mg 30 mg PO DAILY@0800 08/07/21 09/16/22 tablet,extended release 24 hr losartan 25 mg tablet 25 mg PO DAILY@0800 08/07/21 09/16/22 metoprolol succinate 50 mg 50 mg PO BID 08/07/21 09/16/22 tablet,extended release 24 hr fluticasone propionate 50 1 spray intranasal DAILY PRN 05/16/22 09/16/22 mcg/actuation nasal Allergy Symptoms spray,suspension aspirin 81 mg tablet,delayed 81 mg PO DAILY 06/04/22 09/16/22 release atorvastatin 80 mg tablet 80 mg PO BEDTIME 06/04/22 09/16/22 omeprazole 40 mg capsule,delayed 40 mg PO BID 07/23/22 09/16/22 release sucralfate 100 mg/mL oral 10 ml PO QIDACHS 07/23/22 09/16/22 suspension (Carafate) furosemide 20 mg tablet 20 mg PO DAILY 08/27/22 09/16/22 metoprolol succinate 25 mg 25 mg PO BID 09/16/22 09/16/22 tablet,extended release 24 hr Previous Rx's Medication Instructions Recorded benzonatate 200 mg capsule 200 mg PO TID PRN cough #20 caps 09/22/22 Allergies Allergy/AdvReac Type Severity Reaction Status Date / Time polyethylene glycol Allergy Itching Verified 03/24/23 21:19 Review of Systems Review of Systems: Yes all other systems are reviewed and are negative [facility] Past Medical History Medical History Syncope Atypical chest pain COVID-19 Ischemic heart disease due to coronary artery obstruction Left bundle branch block Airway polyps NICM (nonischemic cardiomyopathy) Chest pain Incarcerated left inguinal hernia Hypertension Gout Peptic ulcer disease Left bundle branch block Coronary artery disease No known health problems Surgical History History of partial gastrectomy H/O heart artery stent Family History Family History Father Myocardial infarction Social History Social History Household Members: Other Household Members Other:: with friends, staying with friends Housing: Other Housing Other:: staying with a friend and financial assistance to find a hotel room Do you presently have visiting nurse or other home services: No Alcohol intake: current Alcohol intake frequency: does not drink Patient Tobacco Use Status: Never used Tobacco Second Hand Smoke Exposure: Yes (friends he stays with smoke outside) Advance Directives: Yes Advance Directives on File: Yes Advance Directives Date on File: 05/20/22 service: No Current occupational status: unemployed Physical Exam Vital Signs: Vital Signs: Last Vital Signs Temp 98.5 F 03/25/23 00:39 Pulse 79 03/25/23 00:39 Resp 16 03/25/23 00:39 BP 148/71 H 03/25/23 00:39 Pulse Ox 100 03/25/23 00:39 O2 Del Method Room Air 03/25/23 00:39 BMI result Body Mass Index 31.7 Vital signs did reveal an elevated heart rate of 101 otherwise unremarkable Exam: General: Awake, alert in no distress Head: Normocephalic, atraumatic EENT: PERRL, Lids normal, sclera normal, conjunctiva normal, nose normal , ears normal, throat without erythema or exudates Neck: Supple, no adenopathy, no trachea midline or C-spine tenderness Lung: breath sounds symmetric, no wheezing, rales or rhonchi Chest: symmetric movement, nontender Heart: regular rate and rhythm, normal S1, S2 no murmurs or rubs Abdomen: soft, non-tender, nondistended, normal bowel sounds Back: no vertebral tenderness, no CVAT Extremities: no deformities, moves all extremities symmetrically patient does have trace to 1+ pitting edema bilaterally symmetric, patient does have breakdown of his skin over his left pretibial area with erythema but no increased warmth Neuro: Awake, alert, oriented, normal speech, cranial nerves intact, moves all extremities symmetrically Psych: Pleasant, cooperative Medications Administered Discontinued Medications Generic Name Dose Route Start Last Admin Trade Name George PRN Reason Stop Dose Admin Morphine Sulfate 4 mg 03/24/23 21:38 03/24/23 22:14 Morphine Sulfate 4 Mg/Ml Cartridge IVPUSH 03/24/23 21:39 4 mg ONCE STA Administration Protocol Morphine Sulfate 4 mg 03/25/23 00:17 03/25/23 00:42 Morphine Sulfate 4 Mg/Ml Cartridge IVPUSH 03/25/23 00:18 4 mg ONCE STA Administration Protocol Medical Decision Making Medical Decision Making [facility] Narrative: 68-year-old male with history of syncope, atypical chest pain, left bundle-branch block, hypertension, peptic ulcer disease, coronary disease, cardiomyopathy, GI bleed with partial gastrectomy who presents emergency department for evaluation of shortness of breath , chest pain, coffee-ground emesis and ? coffee-ground ? bowel movement with symptoms beginning at 20:00 hours. Patient was seen here yesterday for bilateral lower extremity swelling, shortness of breath and weeping edema from his lower extremities. Vital signs did reveal an elevated heart rate of 101 otherwise unremarkable. Patient's exam did reveal bilateral lower extremity edema with breakdown of the skin the left pretibial area of his wynn with no evidence of cellulitis at this time. Following evaluation was ordered: CBC, BMP, troponin, 12 EKG, cardiac monitoring, O2 saturation monitoring Patient was treated with the following: Morphine 4 mg IV 01:53 hours My interpretation patient's laboratory evaluation is as follows: Chronic normocytic anemia with an H&H of 9 and 28.3. Normal WBCs 6500. Elevated BUN 25. Patient's troponin was elevated at 57.2-this is the patient's highest elevation, yesterday (03/23/2023) troponin was 10.1. Repeat troponin is due at 01:30 hours. The patient required a 2nd dose of morphine 4 mg IV for his chest pain. At the end of my shift, patient's care was turned over to my colleague, Dr. Alba Singh. Differential Diagnosis Differential Diagnoses: The differential diagnosis associated with the presentation includes Differential diagnosis includes was not limited to myocardial infarction, myocardial ischemia, atypical chest pain, musculoskeletal pain, upper GI bleed Admission/Observation Consideration of admission/observation: Escalation of care including admission/observation considered Lab Data MDM Lab Attestation statement: I reviewed the patient's lab results. 03/24/23 22:36 03/24/23 22:36 Labs: Lab Results 03/24/23 Range/Units 22:36 WBC 6.5 (4.8-10.8) X10*3/uL RBC 2.97 L (4.60-5.80) X10*6/uL Hgb 9.0 L (14.0-18.0) g/dl Hct 28.3 L (42.0-52.0) % MCV 95.3 (80.0-98.0) fL MCH 30.3 (27.0-33.0) pg MCHC 31.8 (31.0-36.0) g/dl RDW 14.6 (11.0-16.0) % Plt Count 315 (160-400) X10*3/uL MPV 8.9 L (9.4-12.4) fL Immature Gran % (Auto) 0.3 (0.0-0.4) % Neut % (Auto) 76.0 H (45-73) % Lymph % (Auto) 9.6 L (20-40) % Forest % (Auto) 13.0 H (2-11) % Eos % (Auto) 0.8 (0-4) % Baso % (Auto) 0.3 (0-2) % Lymph # (Auto) 0.6 L (1.2-4.9) X10*3/uL Forest # (Auto) 0.9 (0.1-1.2) X10*3/uL Eos # (Auto) 0.1 (0.0-0.4) X10*3/uL Baso # (Auto) 0.0 (0.0-0.2) X10*3/uL Abs Immat Gran (auto) 0.02 (0.00-0.03) X10*3/uL Absolute Neuts (auto) 5.0 (2.0-8.3) x10*3/uL Absolute Nucleated RBC 0.000 (0.0-0.012) X10*3/uL Nucleated RBC % (auto) 0.0 (0.0-0.2) /100WBC Sodium 141 (135-145) mmol/L Potassium 4.1 (3.3-5.1) mmol/L Chloride 109 H (96-108) mmol/L Carbon Dioxide 23 (22-29) mmol/L Anion Gap 13 (12-20) BUN 25 H (9-16) mg/dL Creatinine 1.02 (0.5-1.4) mg/dL Estim Creat Clear Calc 81.0 Estimated GFR > 60 Random Glucose 78 (60-115) mg/dL Calcium 9.2 (8.4-10.2) mg/dL Total Bilirubin 0.4 (0.0-1.0) mg/dL AST 25 (5-37) U/L ALT 9 (0-40) U/L Alkaline Phosphatase 102 (39-117) U/L Troponin I High Sens 57.2 H D (<3.5-35.0) ng/L Total Protein 6.8 (6.5-8.0) g/dL Albumin 3.5 (3.5-5.0) g/dL Independent Interpretation I performed an independent interpretation of an: EKG Interpretation: My independent interpretation patient's 12 EKG is as follows: Sinus rhythm with a rate of 96, normal CO interval, prolonged QRS duration of 134 milliseconds, prolonged QTC of 475 milliseconds, occasional PVC, left bundle-branch block, compared to EKG from yesterday no significant change. External Record Review External record reviewed: Office record Chronic Conditions Patient?s care impacted by: Other (Coronary artery disease) Discharge Plan Discharge Clinical Impression: Chest pain Patient Disposition: Still a Patient Prescriptions: No Action fluticasone propionate 50 mcg/actuation [place],Suspension 1 spray INTRANASAL DAILY PRN (Reason: Allergy Symptoms) Rx Instructions: administer into each nostril allopurinol 100 mg Tablet 100 mg PO DAILY@1700 losartan 25 mg Tablet 25 mg PO DAILY@0800 isosorbide mononitrate 30 mg Tablet Extended Release 24 Hr 30 mg PO DAILY@0800 metoprolol succinate 50 mg Tablet Extended Release 24 Hr 50 mg PO BID atorvastatin 80 mg tablet 80 mg PO BEDTIME aspirin 81 mg tablet,delayed release (DR/EC) 81 mg PO DAILY sucralfate [Carafate] 100 mg/mL suspension 10 ml PO QIDACHS omeprazole 40 mg capsule,delayed release(DR/EC) 40 mg PO BID furosemide 20 mg tablet 20 mg PO DAILY metoprolol succinate 25 mg tablet extended release 24 hr 25 mg PO BID benzonatate 200 mg capsule 200 mg PO TID PRN (Reason: cough) Qty: 20 0RF
[2023-03-24 21:42] VITALS: BP 138/58; PULSE 101; RESP 20; TEMP 36.9; O2SAT 97
[2023-03-24] MEDS: Morphine Sulfate 4 MG/ML CARTRIDGE IVPUSH (22:14)
[2023-03-24 22:40] LABS: MANUAL DIFF FLAG NO
[2023-03-24 22:43] LABS: Basophils Percent Auto 0.3 % (0-2); Eosinophils Absolute Auto 0.1 X10*3/uL (0.0-0.4); Eosinophils Percent Auto 0.8 % (0-4); Hematocrit 28.3 % (42.0-52.0); Imm Gran Abs Auto 0.02 X10*3/uL (0.00-0.03); Imm Gran Pct Auto 0.3 % (0.0-0.4); Lymphocytes Absolute Auto 0.6 X10*3/uL (1.2-4.9); Lymphocytes Percent Auto 9.6 % (20-40); Mean Corpuscular HGB Conc 31.8 g/dl (31.0-36.0); Mean Corpuscular Hemoglobin 30.3 pg (27.0-33.0); Mean Corpuscular Volume 95.3 fL (80.0-98.0); Mean Platelet Volume 8.9 fL (9.4-12.4); Monocytes Absolute Auto 0.9 X10*3/uL (0.1-1.2); Platelet Count 315 X10*3/uL (160-400); Red Blood Count 2.97 X10*6/uL (4.60-5.80); Red Cell Distribution Width 14.6 % (11.0-16.0); White Blood Count 6.5 X10*3/uL (4.8-10.8)
[2023-03-24 22:55] LABS: Alanine Aminotransferase 9 U/L (0-40); Albumin Level 3.5 g/dL (3.5-5.0); Alkaline Phosphatase 102 U/L (39-117); Anion Gap 13 (12-20); Aspartate Amino Transferase 25 U/L (5-37); Bilirubin Total 0.4 mg/dL (0.0-1.0); Blood Urea Nitrogen 25 mg/dL (9-16); Calcium 9.2 mg/dL (8.4-10.2); Carbon Dioxide 23 mmol/L (22-29); Chloride 109 mmol/L (96-108); Estimated Glomerular Filt Rate > 60; Glucose Random 78 mg/dL (60-115); Potassium 4.1 mmol/L (3.3-5.1); Sodium 141 mmol/L (135-145); Total Protein 6.8 g/dL (6.5-8.0)
[2023-03-25 00:25] LABS: Troponin-I High Sensitivity 57.2 ng/L (<3.5-35.0)
[2023-03-25 00:39] VITALS: BP 148/71; PULSE 79; RESP 16; TEMP 36.9; O2SAT 100
[2023-03-25] MEDS: Morphine Sulfate 4 MG/ML CARTRIDGE IVPUSH (00:42)
[2023-03-25 03:07] LABS: Troponin-I High Sensitivity 79.1 ng/L (<3.5-35.0)
--- NOTE | 2023-03-25 03:10 | ECG_ITS ---
Test Reason : chest pain Blood Pressure : / mmHG Vent. Rate : 078 BPM Atrial Rate : 078 BPM P-R Int : 160 ms QRS Dur : 134 ms QT Int : 418 ms P-R-T Axes : 064 011 132 degrees QTc Int : 476 ms Sinus rhythm with Premature atrial complexes Left bundle branch block Abnormal ECG When compared with ECG of 24-MAR-2023 21:17, Premature ventricular complexes are no longer Present Premature atrial complexes are now Present Referred By: Alba Singh Electronically Signed By:Pio Bazan
[2023-03-25 05:15] VITALS: BP 149/70; PULSE 75; RESP 20; TEMP 36.8; O2SAT 96
[2023-03-25 05:16] VITALS: PULSE 74
[2023-03-25] MEDS: Nitroglycerin 0.4 MG TAB.SUBL SUBLINGUAL (05:16)
[2023-03-25 07:26] VITALS: BP 122/58; PULSE 69; RESP 16; TEMP 36.8; O2SAT 99
[2023-03-25 08:04] VITALS: BP 140/60; PULSE 63; RESP 16; TEMP 36.9; O2SAT 99
== END 2023-03-25 08:40 | disposition home or self-care (01) ==
PROVIDERS: Student in an Organized Health Care Education/Training Program; Emergency Provider Emergency Medicine Emergency Medical Services
DX: R07.89 Other chest pain (principal); I44.7 Left bundle-branch block, unspecified; R60.0 Localized edema; Z59.00 Homelessness unspecified; Z79.899 Other long term (current) drug therapy
CPT/HCPCS: 36415; 80053; 84484; 85025; 93005; 96374; 96376; 99284; 99285; J2270

== ENCOUNTER → 2023-03-24 21:17 | Outpatient (BNV) | payer MEDICARE, MEDICAID, SELFPAY | PROVIDERS: Emergency Provider Emergency Medicine Emergency Medical Services; Visit Provider Internal Medicine Cardiovascular Disease | DX: I44.7 Left bundle-branch block, unspecified (principal); I49.3 Ventricular premature depolarization | CPT/HCPCS: 93010 ==

== ENCOUNTER → 2023-03-25 03:10 | Outpatient (BNV) | payer MEDICARE, MEDICAID, SELFPAY | PROVIDERS: Emergency Provider Emergency Medicine Emergency Medical Services; Visit Provider Internal Medicine Cardiovascular Disease | DX: I44.7 Left bundle-branch block, unspecified (principal); I49.1 Atrial premature depolarization | CPT/HCPCS: 93010 ==

== ENCOUNTER 2023-04-03 10:10 | Inpatient (IN) | payer MEDICARE, MEDICAID, SELFPAY ==
[2023-04-03] VITALS (7 sets, daily range): BP systolic 110–143; BP diastolic 41–57; PULSE 68–80; RESP 16–20; TEMP 36.6–37.9; O2SAT 95–100; BMI 32.9; BMI 31.5
--- NOTE | 2023-04-03 | ECG_ITS ---
Test Reason : CHEST PAIN Blood Pressure : / mmHG Vent. Rate : 076 BPM Atrial Rate : 076 BPM P-R Int : 170 ms QRS Dur : 128 ms QT Int : 448 ms P-R-T Axes : 066 011 087 degrees QTc Int : 504 ms Normal sinus rhythm Left bundle branch block Abnormal ECG When compared with ECG of 03-APR-2023 10:18, No significant change was found Referred By: Aleta Teixeira Electronically Signed By:AGUILAR REYES MD
--- NOTE | ~2023-04-03 | XR_ITS ---
EXAMINATION: XR CHEST CLINICAL INFORMATION: Shortness of breath COMPARISON: Previous chest x-ray 03/23/2023 TECHNIQUE: Frontal view of the chest was obtained. FINDINGS: The cardiac silhouette is upper normal in size but stable. Hilar and mediastinal contours are normal. Questionable interstitial lung disease at the bases. This could be better evaluated with chest CT if clinically indicated. Lungs are otherwise clear. No pleural effusion or pneumothorax. Degenerative changes of the spine. XR/XR chest 1V IMPRESSION: Upper normal-size cardiac silhouette. Question interstitial disease. This could be better evaluated with chest CT.
--- NOTE | ~2023-04-03 | US_ITS ---
EXAMINATION: US VENOUS ULTRASOUND WITH DOPPLER LOWER EXTREMITY, BILATERAL CLINICAL INFORMATION: Bilateral swelling and calf pain COMPARISON: Previous exam May 2019 TECHNIQUE: Ultrasound of the deep veins is performed from the hip to the calf with compression sonography and color and pulse Doppler assessment. Spectral analysis with color-flow imaging is performed. FINDINGS: RIGHT: There is normal venous compression and respiratory variation and augmented flow. The visualized common femoral vein, superficial femoral vein, profunda femoral vein, popliteal vein, and the trifurcation region shows no evidence of deep venous thrombosis. There is no significant popliteal fossa cyst. LEFT: There is normal venous compression and respiratory variation and augmented flow. The visualized common femoral vein, superficial femoral vein, profunda femoral vein, popliteal vein, and the trifurcation region shows no evidence of deep venous thrombosis. There is no significant popliteal fossa cyst. US/US venous duplex LE BI IMPRESSION: No DVT demonstrated in the bilateral lower extremity.
--- NOTE | ~2023-04-03 | NM_ITS ---
Lexiscan Myocardial perfusion study Indication: Chest pain, assess for coronary disease and ischemia Technique: The patient was brought in for a Lexiscan perfusion study on 04/05/2023 and was injected 0.4 mg of Lexiscan intravenously. Within a minute of this injection 30 mCi of sestamibi was given intravenously. Images were obtained using the SPECT gamma camera interlaced with the gating device. Images were obtained in supine position. Resting perfusion study was performed on 04/06/2023. Patient was administered 30 mCi of sestamibi intravenously at rest. Images were then obtained in supine position. Images were processed with the software and compared side to side in short axis, horizontal long axis and vertical long axis views. Total DLP 97mGy-cm. Findings: Raw acquisition reviewed. The stress perfusion study showed mildly diminished tracer uptake in the inferior wall. There is improvement with CT attenuation correction suggestive of components of diaphragmatic attenuation artifact. The gated study shows mildly diminished LV systolic function with calculated LVEF of 50%. LV cavity is normal in size. The gated study shows normal wall thickening and contraction of segments. Resting study shows diminished tracer uptake along the inferior wall more towards the apex. There is again improvement with CT attenuation correction suggestive of possibly components of diaphragmatic attenuation artifact. Gating at rest reveals normal wall motion with ejection fraction at 44%. The findings are consistent with fixed inferior defect which could be from diaphragmatic attenuation artifact. Otherwise no reversible defects. NM/NM kary perf SPECT rest & str Impression: 1. Myocardial perfusion imaging study shows no clear evidence of any ischemia or infarction. Probably normal myocardial perfusion. 2. Gated LVEF is 50% during stress and 44% during rest. Correlate with echocardiogram. 3. Transient ischemic dilatation not present. EKG component of the test reported separately.
--- NOTE | 2023-04-03 10:12 | ECG_ITS ---
Test Reason : chest pain Blood Pressure : / mmHG Vent. Rate : 079 BPM Atrial Rate : 079 BPM P-R Int : 162 ms QRS Dur : 136 ms QT Int : 444 ms P-R-T Axes : 057 -07 087 degrees QTc Int : 509 ms Normal sinus rhythm Left bundle branch block Abnormal ECG When compared with ECG of 25-MAR-2023 03:25, Premature atrial complexes are no longer Present Referred By: Aleta Teixeira Electronically Signed By:AGUILAR REYES MD
[2023-04-03 11:30] LABS: MANUAL DIFF FLAG NO
[2023-04-03 11:31] LABS: Basophils Percent Auto 0.4 % (0-2); Eosinophils Absolute Auto 0.1 X10*3/uL (0.0-0.4); Hematocrit 27.5 % (42.0-52.0); Hemoglobin 8.9 g/dl (14.0-18.0); Imm Gran Abs Auto 0.02 X10*3/uL (0.00-0.03); Imm Gran Pct Auto 0.3 % (0.0-0.4); Lymphocytes Absolute Auto 0.8 X10*3/uL (1.2-4.9); Lymphocytes Percent Auto 12.1 % (20-40); Mean Corpuscular HGB Conc 32.4 g/dl (31.0-36.0); Mean Corpuscular Hemoglobin 30.8 pg (27.0-33.0); Mean Corpuscular Volume 95.2 fL (80.0-98.0); Monocytes Absolute Auto 0.7 X10*3/uL (0.1-1.2); Monocytes Percent Auto 9.8 % (2-11); Neutrophils Absolute Auto 5.2 x10*3/uL (2.0-8.3); Neutrophils Percent Auto 75.4 % (45-73); Platelet Count 300 X10*3/uL (160-400); Red Blood Count 2.89 X10*6/uL (4.60-5.80); Red Cell Distribution Width 14.6 % (11.0-16.0); White Blood Count 6.8 X10*3/uL (4.8-10.8)
--- NOTE | 2023-04-03 11:43 | ED_ITS ---
HPI - General Adult General Chief complaint: Dyspnea Stated complaint: chest pain Time Seen by Provider: 04/03/23 10:57 Source: patient and RN notes reviewed Mode of arrival: ambulatory Limitations: no limitations History of Present Illness HPI narrative: This is a 68-year-old male, with a history of syncope, atypical chest pain, left bundle-branch block, hypertension, peptic ulcer disease, coronary disease, cardiomyopathy, GI bleed with partial gastrectomy who presents emergency department with complaints of chest pain and shortness of breath. Patient states that he woke up with crushing chest pain, which lasts about 15 minutes and resolves on its own. He also endorses some shortness of breath. He states that over this last month he has had an approximate 53 lb weight gain. He states that he has had increased weeping in his bilateral lower extremities. He denies any fevers, chills, abdominal pain, nausea, vomiting or diarrhea. MD complaint: Chest pain, LE edema Relieving factors: none Exacerbating factors: none Associated symptoms: denies other symptoms Treatments prior to arrival: none Related Data Home Medications Medication Instructions Recorded Confirmed allopurinol 100 mg tablet 100 mg PO DAILY@1700 08/07/21 04/03/23 isosorbide mononitrate 30 mg 30 mg PO DAILY@0800 08/07/21 04/03/23 tablet,extended release 24 hr losartan 25 mg tablet 25 mg PO DAILY@0800 08/07/21 04/03/23 metoprolol succinate 50 mg 50 mg PO BID 08/07/21 04/03/23 tablet,extended release 24 hr fluticasone propionate 50 1 spray intranasal DAILY PRN 05/16/22 04/03/23 mcg/actuation nasal Allergy Symptoms spray,suspension aspirin 81 mg tablet,delayed 81 mg PO DAILY 06/04/22 04/03/23 release atorvastatin 80 mg tablet 80 mg PO BEDTIME 06/04/22 04/03/23 furosemide 20 mg tablet 40 mg PO DAILY 08/27/22 04/03/23 metoprolol succinate 25 mg 25 mg PO BID 09/16/22 04/03/23 tablet,extended release 24 hr Allergies Allergy/AdvReac Type Severity Reaction Status Date / Time polyethylene glycol Allergy Itching Verified 04/03/23 10:26 polyethylene glycol 3350 Allergy Itching Verified 04/03/23 10:26 [From Miralax] Review of Systems 2 Review of Systems: Yes all other systems are reviewed and are negative Constitutional: Constitutional: Reports as per [facility] Past Medical History Attestation statement: The following information was validated with the patient. Medical History Syncope Atypical chest pain COVID-19 Ischemic heart disease due to coronary artery obstruction Left bundle branch block Airway polyps NICM (nonischemic cardiomyopathy) Chest pain Incarcerated left inguinal hernia Hypertension Gout Peptic ulcer disease Left bundle branch block Coronary artery disease No known health problems Surgical History History of partial gastrectomy H/O heart artery stent Family History Family History Father Myocardial infarction Social History Social History Household Members: Other Household Members Other:: with friends, staying with friends Housing: Other Housing Other:: staying with a friend and financial assistance to find a hotel room Do you presently have visiting nurse or other home services: No Alcohol intake: current Alcohol intake frequency: does not drink Patient Tobacco Use Status: Never used Tobacco Smoked in Last 30 Days: No Second Hand Smoke Exposure: Yes (friends he stays with smoke outside) Use of substances other than those prescribed or required for medical reasons: No Advance Directives: Yes Advance Directives on File: Yes Advance Directives Date on File: 05/20/22 service: No Current occupational status: unemployed Physical Exam ED Vital Signs: Vital Signs - 24 hr 04/03/23 10:21 04/03/23 13:00 04/03/23 16:29 Temperature 97.8 F 98.2 F 99.0 F Pulse Rate 80 68 72 Respiratory Rate 16 17 16 Blood Pressure 120/57 L 110/41 L 124/45 L Pulse Oximetry 95 98 100 Oxygen Delivery Method Room Air Room Air Room Air 04/03/23 18:30 04/03/23 20:25 Temperature 100.2 F 99.7 F Pulse Rate 78 77 Respiratory Rate 16 20 Blood Pressure 143/50 H 139/53 L Pulse Oximetry 98 99 Oxygen Delivery Method Room Air Room Air BMI result Body Mass Index 31.5 Const General: cooperative, comfortable and no acute distress Orientation/consciousness: patient oriented x3 Limitations: no limitations [facility] Head: Yes normal to inspection, Yes normocephalic and Yes atraumatic Ears: hearing grossly normal bilaterally General nose exam: Normal external nose present Face and sinus: Yes normal facial exam Mouth: Normal oral and palatal mucosa present, oropharynx normal and moist mucous membranes Throat: Yes posterior oropharynx normal Eyes General: appearance normal, both eyes and all related structures Eyelids: Yes eyelids normal Conjunctivae: conjunctivae normal Sclerae: sclerae normal Pupils: Equal, round and reactive pupils present EOM: EOMs intact bilaterally Neck Neck: Yes normal visual inspection, Yes full ROM and Yes no lymphadenopathy Lymphatic: no lymphadenopathy noted Chest Chest palpation & inspection: normal inspection of the chest Resp Effort & Inspection: normal respiratory effort and able to speak in complete sentences Auscultation: clear to auscultation bilaterally, no crackles, no rales, no rhonchi and no wheezes Cardio Rate: regular rate Rhythm: regular rhythm Heart sounds: S1 normal heart sound present and S2 normal heart sound present GI Inspection: Yes normal to inspection Skin General skin exam: no rashes or lesions noted Trauma: no lacerations or abrasions Wounds: no wounds Neuro General: patient oriented x3 and moves all extremities Cranial nerves: Yes Equal, round and reactive pupils present Extrem Other: 4+ pitting edema noted, with drainage noted and weepiness. There is also skin breakdown noted to bilateral legs. General: Yes normal to inspection Right upper extremity: normal to inspection Left upper extremity: normal to inspection Right lower extremity: normal to inspection Left lower extremity: normal to inspection Course Reevaluation(s) Reevaluation #1: Blood pressure 124/45. Patient was seen and evaluated by my attending physician, Dr. Jackson, who recommends IV Lasix. Will diurese patient, as lower extremity edema and erythema appear chronic and vascular in nature. Does not appear to be infectious therefore antibiotics are not warranted at this time. Transfer of care initiated pending diuresis. Time: 15:59 Reevaluation #2: The patient was too weak to stand and the etiology was uncertain. It is possible this be be related to the patient being fluid overloaded or secondary to cellulitis of his left lower extremity . I ordered blood cultures x2 and lactic acid. Patient's lactic acid was normal at 1.9. Patient was treated with Ancef 2 g IV. I did discuss the patient's presentation with the covering hospitalist, Dr. Valentino and the patient will be admitted for further management. Time: 21:44 Medications Administered Generic Name Dose Route Start Last Admin Trade Name Freq PRN Reason Stop Dose Admin Heparin Sodium/Sodium Chloride 25,000 unit in 250 mls @ 0 mls/hr 04/03/23 20:30 04/03/23 21:23 Heparin Sodium,Porcine/1/2ns IVCONT 14 units/kg/hr .Q0M BRITTANY 13.93 mls/hr Administration Protocol Per Protocol Discontinued Medications Generic Name Dose Route Start Last Admin Trade Name Freq PRN Reason Stop Dose Admin Acetaminophen 975 mg 04/03/23 15:16 04/03/23 15:25 Acetaminophen 325 Mg Tablet PO 04/03/23 15:17 975 mg ONCE ONE Administration Aspirin 324 mg 04/03/23 20:00 04/03/23 20:44 Aspirin 81 Mg Tab.Chew PO 04/03/23 20:01 324 mg ONCE ONE Administration Furosemide 40 mg 04/03/23 16:52 04/03/23 17:12 Furosemide 40 Mg/4 Ml Vial IVPUSH 04/03/23 16:53 40 mg STAT STA Administration Protocol Sodium Chloride 1,000 mls @ 999 mls/hr 04/03/23 16:45 04/03/23 17:16 Ns IV 04/03/23 17:45 0 mls/hr .Q1H1M BRITTANY Infusion Cefazolin Sodium 2 gm/ Sodium 100 mls @ 200 mls/hr 04/03/23 18:29 04/03/23 19:58 Chloride IV 04/03/23 18:58 200 mls/hr ONCE ONE Administration Medical Decision Making Medical Decision Making MDM Narrative: 68-year-old male with history of syncope, atypical chest pain, left bundle- branch block, hypertension, peptic ulcer disease, coronary disease, cardiomyopathy, GI bleed with partial gastrectomy who presents emergency department for evaluation of shortness of breath and chest pain. Patient states that the chest pain is crushing in nature, occasionally radiates down his left arm. On arrival, vital signs within normal limits. Patient is well-appearing. Upon initial inspection, his socks as well as lower portion of his pants is completely soaked, weeping from legs. He states that he has had a 53 lb weight gain. Patient was seen here on March 24, 2023 for similar symptoms and had an unremarkable workup. Plan: Labs, EKG, chest x-ray ordered Differential Diagnosis Differential Diagnoses: The differential diagnosis associated with the presentation includes ACS, CHF, atypical chest pain, dependent edema Admission/Observation Consideration of admission/observation: Escalation of care including admission/observation considered Lab Data MDM Lab Attestation statement: I reviewed the patient's lab results. No leukocytosis, chronic normocytic anemia noted with an H&H of 8.9/27.5, slight elevation in the 18. Troponin 9 2nd troponin 12. BNP 84 04/03/23 11:23 04/03/23 11:23 Labs: Lab Results 04/03/23 04/03/23 04/03/23 Range/Units 11:23 14:52 15:03 WBC 6.8 (4.8-10.8) X10*3/uL RBC 2.89 L (4.60-5.80) X10*6/uL Hgb 8.9 L (14.0-18.0) g/dl Hct 27.5 L (42.0-52.0) % MCV 95.2 (80.0-98.0) fL MCH 30.8 (27.0-33.0) pg MCHC 32.4 (31.0-36.0) g/dl RDW 14.6 (11.0-16.0) % Plt Count 300 (160-400) X10*3/uL MPV 9.0 L (9.4-12.4) fL Immature Gran % (Auto) 0.3 (0.0-0.4) % Neut % (Auto) 75.4 H (45-73) % Lymph % (Auto) 12.1 L (20-40) % [place] % (Auto) 9.8 (2-11) % Eos % (Auto) 2.0 (0-4) % Baso % (Auto) 0.4 (0-2) % Lymph # (Auto) 0.8 L (1.2-4.9) X10*3/uL [place] # (Auto) 0.7 (0.1-1.2) X10*3/uL Eos # (Auto) 0.1 (0.0-0.4) X10*3/uL Baso # (Auto) 0.0 (0.0-0.2) X10*3/uL Abs Immat Gran (auto) 0.02 (0.00-0.03) X10*3/uL Absolute Neuts (auto) 5.2 (2.0-8.3) x10*3/uL Absolute Nucleated RBC 0.000 (0.0-0.012) X10*3/uL Nucleated RBC % (auto) 0.0 (0.0-0.2) /100WBC PT (11.1-13.3) SEC INR (0.9-1.1) aPTT Heparin Protocol (53-77.9) SEC Sodium 141 (135-145) mmol/L Potassium 4.2 (3.3-5.1) mmol/L Chloride 112 H (96-108) mmol/L Carbon Dioxide 21 L (22-29) mmol/L Anion Gap 12 (12-20) BUN 18 H (9-16) mg/dL Creatinine 0.79 (0.5-1.4) mg/dL Estim Creat Clear Calc 106.6 Estimated GFR > 60 Random Glucose 84 (60-115) mg/dL Lactic Acid (0.5-2.0) mmol/L Calcium 9.4 (8.4-10.2) mg/dL Total Bilirubin 0.3 (0.0-1.0) mg/dL AST 20 (5-37) U/L ALT 11 (0-40) U/L Alkaline Phosphatase 123 H (39-117) U/L Troponin I High Sens 9.0 D 12.0 (<3.5-35.0) ng/L B-Natriuretic Peptide 84 (<100) pg/mL Total Protein 6.6 (6.5-8.0) g/dL Albumin 3.5 (3.5-5.0) g/dL Urine Color Yellow Urine Appearance Clear Urine pH 5.5 (5.0-9.0) Ur Specific [place] 1.020 (1.005-1.025) Urine Protein Trace (Neg-Trace) mg/dL Urine Glucose (UA) Negative (Negative) mg/dL Urine Ketones Negative (Negative) mg/dL Urine Blood Negative (Negative) Urine Nitrite Negative (Negative) Ur Leukocyte Esterase Negative (Negative) Urine RBC 0-2 (0-2) /HPF Urine WBC 0-5 (0-5) /HPF Ur Squamous Epith Cells 0-2 (0-2) /HPF Urine Bacteria None Seen (None Seen) Hyaline Casts 0-2 (0-2) /LPF 04/03/23 04/03/23 Range/Units 18:56 20:57 WBC (4.8-10.8) X10*3/uL RBC (4.60-5.80) X10*6/uL Hgb (14.0-18.0) g/dl Hct (42.0-52.0) % MCV (80.0-98.0) fL MCH (27.0-33.0) pg MCHC (31.0-36.0) g/dl RDW (11.0-16.0) % Plt Count (160-400) X10*3/uL MPV (9.4-12.4) fL Immature Gran % (Auto) (0.0-0.4) % Neut % (Auto) (45-73) % Lymph % (Auto) (20-40) % [place] % (Auto) (2-11) % Eos % (Auto) (0-4) % Baso % (Auto) (0-2) % Lymph # (Auto) (1.2-4.9) X10*3/uL [place] # (Auto) (0.1-1.2) X10*3/uL Eos # (Auto) (0.0-0.4) X10*3/uL Baso # (Auto) (0.0-0.2) X10*3/uL Abs Immat Gran (auto) (0.00-0.03) X10*3/uL Absolute Neuts (auto) (2.0-8.3) x10*3/uL Absolute Nucleated RBC (0.0-0.012) X10*3/uL Nucleated RBC % (auto) (0.0-0.2) /100WBC PT 12.7 (11.1-13.3) SEC INR 1.0 (0.9-1.1) aPTT Heparin Protocol 29.9 L (53-77.9) SEC Sodium (135-145) mmol/L Potassium (3.3-5.1) mmol/L Chloride (96-108) mmol/L Carbon Dioxide (22-29) mmol/L Anion Gap (12-20) BUN (9-16) mg/dL Creatinine (0.5-1.4) mg/dL Estim Creat Clear Calc Estimated GFR Random Glucose (60-115) mg/dL Lactic Acid 1.9 (0.5-2.0) mmol/L Calcium (8.4-10.2) mg/dL Total Bilirubin (0.0-1.0) mg/dL AST (5-37) U/L ALT (0-40) U/L Alkaline Phosphatase (39-117) U/L Troponin I High Sens (<3.5-35.0) ng/L B-Natriuretic Peptide (<100) pg/mL Total Protein (6.5-8.0) g/dL Albumin (3.5-5.0) g/dL Urine Color Urine Appearance Urine pH (5.0-9.0) Ur Specific [place] (1.005-1.025) Urine Protein (Neg-Trace) mg/dL Urine Glucose (UA) (Negative) mg/dL Urine Ketones (Negative) mg/dL Urine Blood (Negative) Urine Nitrite (Negative) Ur Leukocyte Esterase (Negative) Urine RBC (0-2) /HPF Urine WBC (0-5) /HPF Ur Squamous Epith Cells (0-2) /HPF Urine Bacteria (None Seen) Hyaline Casts (0-2) /LPF Independent Interpretation I performed an independent interpretation of an: EKG Interpretation: EKG normal sinus rhythm at a ventricular rate of 76 beats per minute, with left bundle-branch block seen on previous EKGs. QRS 128, RI interval 170, QTC 504. Radiology Impression Discussion of test interpretation with radiology: I have reviewed the radiologist's reading. Radiologist Impression: EXAMINATION: XR CHEST CLINICAL INFORMATION: Shortness of breath COMPARISON: Previous chest x-ray 03/23/2023 TECHNIQUE: Frontal view of the chest was obtained. FINDINGS: The cardiac silhouette is upper normal in size but stable. Hilar and mediastinal contours are normal. Questionable interstitial lung disease at the bases. This could be better evaluated with chest CT if clinically indicated. Lungs are otherwise clear. No pleural effusion or pneumothorax. Degenerative changes of the spine. XR/XR chest 1V IMPRESSION: Upper normal-size cardiac silhouette. Question interstitial disease. This could be better evaluated with chest CT. Dictated By: Alba Barrios MD EXAMINATION: US VENOUS ULTRASOUND WITH DOPPLER LOWER EXTREMITY, BILATERAL CLINICAL INFORMATION: Bilateral swelling and calf pain COMPARISON: Previous exam May 2019 TECHNIQUE: Ultrasound of the deep veins is performed from the hip to the calf with compression sonography and color and pulse Doppler assessment. Spectral analysis with color-flow imaging is performed. FINDINGS: RIGHT: There is normal venous compression and respiratory variation and augmented flow. The visualized common femoral vein, superficial femoral vein, profunda femoral vein, popliteal vein, and the trifurcation region shows no evidence of deep venous thrombosis. There is no significant popliteal fossa cyst. LEFT: There is normal venous compression and respiratory variation and augmented flow. The visualized common femoral vein, superficial femoral vein, profunda femoral vein, popliteal vein, and the trifurcation region shows no evidence of deep venous thrombosis. There is no significant popliteal fossa cyst. US/US venous duplex LE BI IMPRESSION: No DVT demonstrated in the bilateral lower extremity. Dictated By: Alba Barrios MD Critical Care Time Critical Care Time Critical Care Time: Yes Total Critical Care Time: 40 Attestation: I have personally provided critical care time exclusive of time spent on separately billable procedures. Time includes review of lab data, radiology results, discussion with consultants, and monitoring for potential decompensation. Intervention performed as documented. Discharge Plan Discharge Patient Disposition: Admitted As Inpatient Additional Instructions: You were seen in the emergency department due to lower extremity swelling as well as chest pain. Your workup today was reassuring. We had given you IV Lasix to help reduce the fluid retention in your legs. It is very important to keep a close eye on your leg swelling, elevate your legs, and continue taking at home Lasix as prescribed. If you develop any new or worsening symptoms including but not limited to chest pain, shortness of breath, please return for re-evaluation. Prescriptions: No Action fluticasone propionate 50 mcg/actuation [place],Suspension 1 spray INTRANASAL DAILY PRN (Reason: Allergy Symptoms) Rx Instructions: administer into each nostril allopurinol 100 mg Tablet 100 mg PO DAILY@1700 losartan 25 mg Tablet 25 mg PO DAILY@0800 isosorbide mononitrate 30 mg Tablet Extended Release 24 Hr 30 mg PO DAILY@0800 metoprolol succinate 50 mg Tablet Extended Release 24 Hr 50 mg PO BID atorvastatin 80 mg tablet 80 mg PO BEDTIME aspirin 81 mg tablet,delayed release (DR/EC) 81 mg PO DAILY furosemide 20 mg tablet 40 mg PO DAILY metoprolol succinate 25 mg tablet extended release 24 hr 25 mg PO BID
[2023-04-03 11:52] LABS: B Type Natriuretic Peptide 84 pg/mL (<100)
[2023-04-03 11:56] LABS: Alanine Aminotransferase 11 U/L (0-40); Albumin Level 3.5 g/dL (3.5-5.0); Alkaline Phosphatase 123 U/L (39-117); Anion Gap 12 (12-20); Aspartate Amino Transferase 20 U/L (5-37); Bilirubin Total 0.3 mg/dL (0.0-1.0); Blood Urea Nitrogen 18 mg/dL (9-16); Calcium 9.4 mg/dL (8.4-10.2); Carbon Dioxide 21 mmol/L (22-29); Chloride 112 mmol/L (96-108); Creatinine Clr Calc Pharmacy 106.6; Estimated Glomerular Filt Rate > 60; Glucose Random 84 mg/dL (60-115); Potassium 4.2 mmol/L (3.3-5.1); Sodium 141 mmol/L (135-145); Total Protein 6.6 g/dL (6.5-8.0)
--- NOTE | 2023-04-03 12:19 | PC.NURSE ---
this RN resumed care of pt at this time. a&ox4. vss and up to date. nsr on the media monitor. pt presents to the ED d/t sternal c/p that radiates to back. pt also c/o dyspnea on exertion. 3+ pitting noted noted in LE bilaterally. 3+nonpitting edema noted in upper thighs bilaterally. skin tender to touch. excessive weeping noted to LE bilaterally. yellow discharge noted on bed linens. foul smell noted to discharge/fluid. open wounds noted to back of LE bilaterally. provider aware/took picture. bedding changed/fresh pads/extra layers applied. pt repositioned to comfort. no sob/wob noted at this time. respirations even and unlabored. plan of care ongoing. call wyatt placed within reach.
--- NOTE | 2023-04-03 14:20 | PC.NURSE ---
pt c/o sudden onset sternal c/p at this time. denies radiation/any other sx at this time. new ekg ordered at this time. tech performing. pt remains nsr on the lunchroom monitor. no sob/wob noted. respirations remain even and unlabored. call wyatt placed within reach.
--- NOTE | 2023-04-03 14:55 | MHC.EDTECH ---
Bladder scan done pre and post straight cath. 363 ml prior and 3 ml after, CATRACHO Henao aware
[2023-04-03 14:58] LABS: Appearance Urine Clear; Color Urine Yellow; Glucose Urine UA Negative (Negative); Leukocyte Esterase Urine Negative (Negative); Nitrite Urine Negative (Negative); PH 5.5 (5.0-9.0); Urine Blood Negative (Negative); Urine Ketones Negative (Negative); Urine Protein Trace mg/dL (Neg-Trace)
[2023-04-03 15:03] LABS: Bacteria Urine None Seen (None Seen); Hyaline Casts Urine 0-2 /LPF (0-2); RBC Urine 0-2 /HPF (0-2); Squamous Epithelial Cell Urine 0-2 /HPF (0-2); WBC Urine 0-5 /HPF (0-5)
--- NOTE | 2023-04-03 15:05 | PC.NURSE ---
repeat ekg obtained/showed to ED provider. delay in repeat troponin obtained d/t pt being a difficult stick. 22gIV placed in the right hand - labs obtained/sent to lab. pt also verbalizing he was unable to urinate on his own. states he was having a difficult time starting stream. pre void bladder scan obtained displaying 363ml. provider notified/aware. straight catheterization order/performed. 300ml of dark yellow urine noted immediately post output. post-void residual bladder scan obtained - displaying 3ml. placed in pt's chart. pt c/o 7/10 chest pain requesting medication. will notify provider. respirations remain even and unlabored. call wyatt placed within reach.
[2023-04-03] MEDS: Acetaminophen 325 MG TABLET 975 MG PO (15:25)
--- NOTE | 2023-04-03 15:27 | PC.NURSE ---
medication administered per provider order. pt currently being transported to ultrasound at this time.
--- NOTE | 2023-04-03 16:30 | PC.NURSE ---
pt returned from CT at this time. pt verbalizing pain level decreased to a 7/10 post medication administration. vss and up to date aside from pt being hypotensive. provider notified/aware at this time. pt awaiting on US results at this time. respirations remain even and unlalored. call wyatt placed within reach.
[2023-04-03] MEDS: 0.9 % Sodium Chloride 1,000 ML 999 ML IV (16:44)
--- NOTE | 2023-04-03 16:46 | PC.NURSE ---
IVF administered per provider order. will reassess BP post IVF administration.
[2023-04-03] MEDS: Furosemide 40 MG/4 ML VIAL IVPUSH (17:12)
--- NOTE | 2023-04-03 17:34 | PC.NURSE ---
pt seen by ED providers at this time. IVF paused per provider order. lasix administered per provider order. respirations remain even and unlabored. call wyatt placed within reach.
--- NOTE | 2023-04-03 18:32 | PC.NURSE ---
vss and up to date at this time. nsr on the quality assurance monitor body. pt warm to the touch - rectal temp obtained displaying 100.2. pt attempting to stand up independently to use urinal but has a difficult time w/ maintaining a steady gait. pt c/o increased pain in the LE bilaterally and feeling and increase in weakness. provider notified/aware of findings at this time. plan of care ongoing. call wyatt placed within reach.
[2023-04-03 19:09] LABS: Lactic Acid 1.9 mmol/L (0.5-2.0)
--- NOTE | 2023-04-03 19:45 | PC.NURSE ---
Addendum entered by Bessie Gallegos 04/04/23 01:37: 98% on RA, lung sounds clear. Pt using urinal at bedside. Original Note: This communications writer assumed care of this Pt at 1900. Pt A&Ox3, reports 5/10 intermittent sternal CP, and 7/10 constant BLL pain for a few weeks and 53 lbs weight gain in 1 month. Pt has anasarca, with weeping/redness to BLL.
--- NOTE | 2023-04-03 19:57 | PM.IMHP ---
History of Present Illness Date of Service: 04/03/23 Attending physician on admission: Lidia Valentino Chief Complaint: chest pain, appiah 67 year old male with history of CAD s/p PCI, LBBB, unstable angina, NICM, HFrEF, htn, gout, PUD, hx partial gastrectomy presented to the ED via EMS for evaluation of appiah and chest pain. Reports he has been having intermittent episodes of retrosternal crushing 10/10 chest pain with radiation to the left shoulder and jaw with associated dyspnea both at rest and with exertion over the last few weeks. Lasts for about 10-15 minutes before resolving spontaneously. Has also had occassional dry cough. He is homeless and denies known sick contacts. No fevers, chills, sore throat, congestion, abd pain, n/v/d, urinary symptoms, orthopnea, lightheadedness, palpitations, or syncope. He also has chronic wounds to the BLE with increased edema. States wounds have been weeping and drenching his socks. Feels he has gained significant weight, estimates 53 pounds . On review of chart, appears to have have 10 pound weight gain since 03/24. No history of illicit drug use, not a smoker, remote hx of alcohol use. On arrival, vitals stable, though low grade fever on admission with temp 100.2. No leukocytosis. Renal function, electrolytes normal. Lactic acid 1.9. Initial trop 9.0, repeat 12.0. BNP 84. UA unremarkable. CXR negative for any acute cardiopulmonary abnormality. Venous duplex negative for DVT. In the ED, has been given 2g cefazolin, and was initially started on IVF which were stopped and given 40mg IV lasix. Review of Systems Review of Systems: General: No fevers, malaise, unintentional weight loss HEENT: No blurred vision, diplopia. No sore throat, nasal congestion, rhinorrhea, sinus pain, ear pain Cardiovascular: +chest pain, +BLE edema, +weight gain. No palpitations Respiratory: +APPIAH, +SOB, +cough. No wheezing GI: No abdominal pain, nausea, vomiting, diarrhea, constipation, melena, hematochezia : No dysuria, hematuria, increased urinary frequency, decreased urinary output MSK: No myalgia, back pain Neuro: No headaches, weakness, paresthesias Skin: No rashes. +BLE wounds PMFSH Medical History Syncope Atypical chest pain COVID-19 Ischemic heart disease due to coronary artery obstruction Left bundle branch block Airway polyps NICM (nonischemic cardiomyopathy) Chest pain Incarcerated left inguinal hernia Hypertension Gout Peptic ulcer disease Left bundle branch block Coronary artery disease No known health problems Family History Father Myocardial infarction Surgical History History of partial gastrectomy H/O heart artery stent Social History Household Members: Other Household Members Other:: with friends, staying with friends Housing: Other Housing Other:: staying with a friend and financial assistance to find a hotel room Do you presently have visiting nurse or other home services: No Alcohol intake: current Alcohol intake frequency: does not drink Patient Tobacco Use Status: Never used Tobacco Smoked in Last 30 Days: No Second Hand Smoke Exposure: Yes (friends he stays with smoke outside) Use of substances other than those prescribed or required for medical reasons: No Advance Directives: Yes Advance Directives on File: Yes Advance Directives Date on File: 05/20/22 service: No Current occupational status: unemployed Meds Allergies Allergy/AdvReac Type Severity Reaction Status Date / Time polyethylene glycol Allergy Itching Verified 04/03/23 10:26 polyethylene glycol 3350 Allergy Itching Verified 04/03/23 10:26 [From Miralax] Active Medications: Current Medications Acetaminophen (Acetaminophen 325 Mg Tablet) 650 mg PO Q6H PRN PRN Reason: Pain, Mild (Pain Scale 1-3) Heparin Sodium (Porcine) (Heparin Sodium,Porcine 5,000 Unit/Ml Vial) 4,200 unit 40 unit/kg (4200 unit) IVPUSH PROTOCOL BOLUS PRN; Protocol PRN Reason: 40 unit/kg - Heparin Protocol Heparin Sodium (Porcine) (Heparin Sodium,Porcine 5,000 Unit/Ml Vial) 8,300 unit 80 unit/kg (8300 unit) IVPUSH PROTOCOL BOLUS PRN; Protocol PRN Reason: 80 unit/kg - Heparin Protocol Heparin Sodium/Sodium Chloride (Heparin Sodium,Porcine/1/2ns) 25,000 unit in 250 mls @ 0 mls/hr IVCONT .Q0M [facility]; Protocol Ondansetron HCl (Ondansetron Hcl 4 Mg/2 Ml Vial) 4 mg IVPUSH Q8H PRN PRN Reason: Nausea and Vomiting Senna (Sennosides 8.6 Mg Tablet) 17.2 mg PO BEDTIME PRN PRN Reason: Constipation Sodium Chloride (0.9 % Sodium Chloride Flush 3 Ml Syringe) 3 ml IVFLUSH QSHIFT [facility] Home Medications Medication Instructions Recorded Confirmed Last Taken Type allopurinol 100 mg tablet 100 mg PO DAILY@1700 08/07/21 09/16/22 08/25/22 History isosorbide mononitrate 30 mg 30 mg PO DAILY@0800 08/07/21 09/16/22 08/26/22 08:00 History tablet,extended release 24 hr losartan 25 mg tablet 25 mg PO DAILY@0800 08/07/21 09/16/22 08/26/22 08:00 History metoprolol succinate 50 mg 50 mg PO BID 08/07/21 09/16/22 08/26/22 08:00 History tablet,extended release 24 hr fluticasone propionate 50 1 spray intranasal DAILY PRN 05/16/22 09/16/22 Unknown History mcg/actuation nasal Allergy Symptoms spray,suspension aspirin 81 mg tablet,delayed 81 mg PO DAILY 06/04/22 09/16/22 08/26/22 08:00 History release atorvastatin 80 mg tablet 80 mg PO BEDTIME 06/04/22 09/16/22 08/25/22 History omeprazole 40 mg capsule,delayed 40 mg PO BID 07/23/22 09/16/22 08/26/22 08:00 History release furosemide 20 mg tablet 20 mg PO DAILY 08/27/22 09/16/22 08/26/22 08:00 History metoprolol succinate 25 mg 25 mg PO BID 09/16/22 09/16/22 Unknown History tablet,extended release 24 hr Physical Exam Vital Signs and Narrative: Vital Signs: Last Vital Signs Temp 100.2 F 04/03/23 18:30 Pulse 78 04/03/23 18:30 Resp 16 04/03/23 18:30 BP 143/50 H 04/03/23 18:30 Pulse Ox 98 04/03/23 18:30 O2 Del Method Room Air 04/03/23 18:30 BMI result Body Mass Index 32.9 Constitutional - Awake and Alert, No apparent distress Eyes - PERRLA, EOMI Cardiovascular - S1S2, RRR, 2+ pitting edema ble Respiratory - Normal lung expansion, Normal respiratory effort, No respiratory distress, CTA bilaterally Gastrointestinal - mild diffuse ttp. ND; +BS; No rebound or guarding Extremities - no calf tenderness bilaterally Skin - Warm/Dry. Dry flaking skin overlying thickened erythemaous skin with shallow venous ulcers bilaterally. There is significant erythema, edema, with seropurulent scabbing over the distal 2/3 LLE with warmth Neurological - Alert & oriented x3 Psychological - Appropriate affect Results Labs 04/03/23 11:23 04/03/23 11:23 Labs: Laboratory Results - last 24 hr 04/03/23 04/03/23 04/03/23 11:23 14:52 18:56 MCV 95.2 MCH 30.8 MCHC 32.4 RDW 14.6 Plt Count 300 MPV 9.0 L Immature Gran % (Auto) 0.3 Neut % (Auto) 75.4 H Lymph % (Auto) 12.1 L [place] % (Auto) 9.8 Eos % (Auto) 2.0 Baso % (Auto) 0.4 Lymph # (Auto) 0.8 L Bradford # (Auto) 0.7 Eos # (Auto) 0.1 Baso # (Auto) 0.0 Abs Immat Gran (auto) 0.02 Absolute Neuts (auto) 5.2 Absolute Nucleated RBC 0.000 Nucleated RBC % (auto) 0.0 Anion Gap 12 Estim Creat Clear Calc 106.6 Estimated GFR > 60 Random Glucose 84 Lactic Acid 1.9 Calcium 9.4 Total Bilirubin 0.3 AST 20 ALT 11 Alkaline Phosphatase 123 H B-Natriuretic Peptide 84 Total Protein 6.6 Albumin 3.5 Urine Color Yellow Urine Appearance Clear Urine pH 5.5 Ur Specific [place] 1.020 Urine Protein Trace Urine Glucose (UA) Negative Urine Ketones Negative Urine Blood Negative Urine Nitrite Negative Ur Leukocyte Esterase Negative Urine RBC 0-2 Urine WBC 0-5 Ur Squamous Epith Cells 0-2 Urine Bacteria None Seen Hyaline Casts 0-2 Imaging Radiologist's Impressions: Impressions Chest X-Ray 04/03/23 11:06 IMPRESSION: Upper normal-size cardiac silhouette. Question interstitial disease. This could be better evaluated with chest CT. Venous Duplex 04/03/23 15:42 IMPRESSION: No DVT demonstrated in the bilateral lower extremity. Assessment and Plan (1) Unstable angina: Status: Acute (2) Cellulitis of left leg: Status: Acute (3) CHF (congestive heart failure): Status: Acute Plan 67 year old male with history of CAD s/p PCI, LBBB, unstable angina, NICM, HFrEF, htn, gout, PUD, hx partial gastrectomy admitted for management of purulent cellulitis, unstable angina, and chf exacerbation #Acute cellulitis LLE- background chronic venous stasis dermatitis with venous ulcers -IV vanco (initiated 04/03) -No leukocytosis, no sepsis -rn clinical coordinator -follow cbc, cultures #Typical chest pain concerning for unstable angina -trops 9.0, 12. EKG without acute ischemic changes -aspirin 324mg, then 81mg daily -heparin drip per protocol -echocardiogram -cardiology consult -monitor on telemetry #CHF exacerbation -10 pound weight gain over 2 weeks, appiah, significant ble -40mg iv lasix daily -strict I&O -daily weights -cardiac diet -cardiology consult -echo #HTN -continue metoprolol, losartan, isosorbide #CAD/NICM/hld -asa, bb, isosorbide,statin -as above #GERD/PUD -ppi, carafate DVT prophylaxis- heparin Full code Pt requires inpt stay at least 2 midnight for IV antibiotics for extensive purulent cellulitis in homeless male with poor outpt follow up who is also presenting today with symptoms consistent with unstable angina in pt with significant cardiac history requiring heparin drip per protocol and expert consultation Quality Stroke Does the patient have a stroke diagnosis?: No VTE Prior VTE?: No VTE Risk Level:: Medical - moderate - high VTE Device Contraindication: Treatment Not Indicated VTE Drug Contraindication: N/A - Med Ordered
[2023-04-03] MEDS: ceFAZolin Sodium 2 GM in 0.9 % Sodium Chloride 100 ML IV (19:58)
[2023-04-03] MEDS: Aspirin 81 MG TAB.CHEW 324 MG PO (20:44)
[2023-04-03 21:10] LABS: Prothrombin Time 12.7 SEC (11.1-13.3)
[2023-04-03 21:13] LABS: PTT Heparin Drip 29.9 SEC (53-77.9)
--- NOTE | 2023-04-03 21:21 | PHA.PROG ---
Admission Date/Time: Indication: SKIN Weight in k.5 kg Serum Creatinine - Last 168 Hours 04/03/23 11:23 Creatinine 0.79 Estimated CrCl and GFR - Last 168 Hours 04/03/23 11:23 Estim Creat Clear Calc 106.6 Estimated GFR > 60 Vancomycin Loading Dose: 2000 Current Vancomycin Dosing Regimen: 1250 Q 12H Vancomycin Monitoring using AUC goal of 400 - 600 range with trough as surrogate marker: 533 Date and Time for next Vancomycin Level to be drawn 04/05 @ 0800 Pharmacist Comments on Vancomycin Plan: Vancomycin dosing will take advantage of [employer]IM[employer] as a clinical decision support tool that uses Bayesian modeling to calculate individual patient's pharmacokinetic parameters and forecast the patient's drug concentration time course with the target goal AUC 24 range of 400 - 600 mg/L/hr.
[2023-04-03] MEDS: Heparin Sodium,Porcine/1/2NS 25,000 UNIT/250 ML IV.SOLN 13.93 UNIT IVCONT (21:23)
--- NOTE | 2023-04-03 21:50 | PC.NURSE ---
Med rec done, Pt able to verbalize home meds.
--- NOTE | 2023-04-03 21:51 | PC.NURSE ---
Pt difficult stick, pending new IV insertion for Vanco infusion.
[2023-04-03] MEDS: Metoprolol Succinate ER 25 MG TAB.ER.24H 75 MG PO (22:28)
[2023-04-04] MEDS: 0.9 % Sodium Chloride Flush 3 ML SYRINGE IVFLUSH ×3 (00:41→16:28)
[2023-04-04] MEDS: Acetaminophen 325 MG TABLET 650 MG PO ×4 (00:41→22:52)
--- NOTE | 2023-04-04 01:53 | PC.NURSE ---
Report complete, pt will be transported to [facility], Pt aware of plan.
[2023-04-04 03:29] VITALS: BP 122/56; PULSE 66; RESP 20; TEMP 37.2; O2SAT 96
[2023-04-04 03:42] LABS: PTT Heparin Drip 78.2 SEC (53-77.9)
[2023-04-04] MEDS: Omeprazole 40 MG CAPSULE.DR PO ×2 (05:56→16:11)
[2023-04-04 06:00] VITALS: BMI 31.4
[2023-04-04 06:16] LABS: MANUAL DIFF FLAG NO
[2023-04-04 06:25] LABS: Basophils Percent Auto 0.4 % (0-2); Eosinophils Absolute Auto 0.1 X10*3/uL (0.0-0.4); Eosinophils Percent Auto 2.5 % (0-4); Hematocrit 26.9 % (42.0-52.0); Hemoglobin 8.7 g/dl (14.0-18.0); Imm Gran Abs Auto 0.01 X10*3/uL (0.00-0.03); Imm Gran Pct Auto 0.2 % (0.0-0.4); Lymphocytes Absolute Auto 1.3 X10*3/uL (1.2-4.9); Lymphocytes Percent Auto 24.7 % (20-40); Mean Corpuscular HGB Conc 32.3 g/dl (31.0-36.0); Mean Corpuscular Volume 95.7 fL (80.0-98.0); Mean Platelet Volume 9.3 fL (9.4-12.4); Monocytes Absolute Auto 0.6 X10*3/uL (0.1-1.2); Monocytes Percent Auto 11.7 % (2-11); Neutrophils Absolute Auto 3.1 x10*3/uL (2.0-8.3); Neutrophils Percent Auto 60.5 % (45-73); Platelet Count 286 X10*3/uL (160-400); Red Blood Count 2.81 X10*6/uL (4.60-5.80); Red Cell Distribution Width 14.6 % (11.0-16.0); White Blood Count 5.2 X10*3/uL (4.8-10.8)
[2023-04-04 06:38] LABS: Anion Gap 12 (12-20); Blood Urea Nitrogen 16 mg/dL (9-16); Calcium 8.7 mg/dL (8.4-10.2); Carbon Dioxide 23 mmol/L (22-29); Chloride 111 mmol/L (96-108); Creatinine Clr Calc Pharmacy 92.5; Estimated Glomerular Filt Rate > 60; Glucose Random 89 mg/dL (60-115); Potassium 3.8 mmol/L (3.3-5.1); Sodium 142 mmol/L (135-145)
[2023-04-04 07:30] VITALS: BP 128/61; PULSE 64; RESP 20; TEMP 36.9; O2SAT 97
--- NOTE | 2023-04-04 08:22 | PHA.MEDREC ---
Pharmacy Consult ? Medication Reconciliation Pharmacy has completed the medication reconciliation. Added finasteride, omeprazole, and tamsulosin. Pt states they only take TOPROL XL ONCE a day, not twice a day like bottle states. Ulises
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
[2023-04-04 08:46] LABS: Cholesterol 95 mg/dL (<200); HDL Cholesterol 48 mg/dL (>40); LDL Cholesterol Calculated 34 mg/dL (<100); Triglycerides 65 mg/dL (<150)
[2023-04-04] MEDS: Furosemide 40 MG/4 ML VIAL IVPUSH (09:45)
[2023-04-04] MEDS: Aspirin Enteric Coated 81 MG TABLET.DR PO (09:46)
[2023-04-04] MEDS: Metoprolol Succinate ER 25 MG TAB.ER.24H 75 MG PO (09:46)
[2023-04-04] MEDS: Losartan Potassium 25 MG TABLET PO (09:47)
[2023-04-04 10:10] LABS: Adenovirus PCR Not Detected (Not Detect.); Bordetella parapertussis PCR Not Detected (Not Detect.); Bordetella pertussis PCR Not Detected (Not Detect.); Chlamydia pneumoniae PCR Not Detected (Not Detect.); Coronavirus 229E PCR Not Detected (Not Detect.); Coronavirus HKU1 PCR Not Detected (Not Detect.); Coronavirus NL63 PCR Not Detected (Not Detect.); Coronavirus OC43 PCR Not Detected (Not Detect.); Human metapneumovirus PCR Not Detected (Not Detect.); Influenza A PCR Not Detected (Not Detect.); Influenza B PCR Not Detected (Not Detect.); Mycoplasma pneumoniae PCR Not Detected (Not Detect.); Parainfluenza 1 PCR Not Detected (Not Detect.); Parainfluenza 2 PCR Not Detected (Not Detect.); Parainfluenza 3 PCR Not Detected (Not Detect.); Parainfluenza 4 PCR Not Detected (Not Detect.); RSV PCR Not Detected (Not Detect.); Rhino/Enterovirus PCR Not Detected (Not Detect.)
[2023-04-04] MEDS: vancomycin HCL 1,250 MG in 0.9 % Sodium Chloride 250 ML 166.67 MG IV ×2 (10:10→21:35)
[2023-04-04 10:15] LABS: PTT Heparin Drip 78.6 SEC (53-77.9)
[2023-04-04 10:41] LABS: SARS-CoV-2 PCR Not Detected (Not Detect.)
--- NOTE | 2023-04-04 10:49 | PM.CNCAR ---
History of Present Illness History of Present Illness Date of Service: 04/04/23 Requesting physician: Ruth Dumont Consult reason: chest pain and congestive heart failure Chief complaint: Cellulitis, chest pain Narrative: I was consulted to see Durga in cardiology consultation today for chest pain and shortness of breath. Patient is 68-year-old male says that he had LAD stent 2 years ago for chest discomfort, being followed by [facility]. Patient has not seen them for a while. Patient also history of heart failure with reduced ejection fraction, on Lasix losartan and metoprolol at home. Last echocardiogram done in October he has showed LVEF of 45-50%. He has chronic left bundle-branch block. He is currently homeless and says over the last couple weeks has been having increasing symptoms of exertional shortness of breath as well as chest discomfort with exertion. He said about 3 months ago he was able to walk 3-6 miles without any issues and more recently he has been getting exertional shortness of breath as well as chest discomfort which stops in about a block. Also getting some chest discomfort at rest. He said these chest pains are similar to his chest pain prior to his stenting. He also had bilateral leg swelling and says he is gained about 10 lb the last week but overall he is gained about 57 lb. He takes all his medications. Came to the hospital and his EKG showed left bundle-branch block however he was also noted to have low-grade fever and cellulitis predominantly in his left lower extremity. He was admitted for IV antibiotics. Was given Lasix. Intake and output chart shows positive balance overall. His troponins are negative and his BNP is less than 100. He is laying comfortably in bed at this point in time. Review of Systems Constitutional: Constitutional: Reports weight gain Eyes: Eyes: Reports no additional eye complaints Cardiovascular: Cardiovascular: Reports chest pain with activity, Reports leg edema, Denies lightheadedness, Denies Loss of Consciousness, Reports dyspnea on exertion and Reports orthopnea Respiratory: Respiratory: Reports dyspnea on exertion Gastrointestinal: Gastrointestinal: Reports no additional gastrointestinal complaints Genitourinary: Genitourinary: Reports no additional male genitourinary complaints Integumentary/Breasts: Skin/Breast: Reports system reviewed and no additional complaints, except as docu Neurologic: Reports system reviewed and no additional complaints, except as documented Psychiatric: Psychiatric: Reports no additional psychiatric complaints Endocrine: Endocrine: Reports no additional endocrine complaints Hematologic/Lymphatic: Hematologic/Lymphatic: Reports no additional hematologic/lymphatic complaints Allergic/Immunologic: Allergic/Immunologic: Reports no additional allergic/immunologic complaints [facility] Past Medical History Medical History Syncope Atypical chest pain COVID-19 Ischemic heart disease due to coronary artery obstruction Left bundle branch block Airway polyps NICM (nonischemic cardiomyopathy) Chest pain Incarcerated left inguinal hernia Hypertension Gout Peptic ulcer disease Left bundle branch block Coronary artery disease No known health problems Family History Family History Father Myocardial infarction Surgical History Surgical History History of partial gastrectomy H/O heart artery stent Social History Social History Household Members: None Household Members Other:: with friends, staying with friends Housing: Homeless Housing Other:: staying with a friend and financial assistance to find a hotel room Do you presently have visiting nurse or other home services: No Alcohol intake: current Alcohol intake frequency: does not drink Patient Tobacco Use Status: Never used Tobacco Smoked in Last 30 Days: No Second Hand Smoke Exposure: Yes (friends he stays with smoke outside) Use of substances other than those prescribed or required for medical reasons: No Currently Displaying Signs/Symptoms of Drug Intoxication Withdrawal: No Have you been hit, kicked, punched, or otherwise hurt by someone within the past year? If so, by whom?: No Do you feel safe in your current relationship?: No Current Relationship Is there a partner from a previous relationship who is making you feel unsafe now?: No Are you made to feel afraid or neglected: No Advance Directives: Yes Advance Directives on File: Yes Advance Directives Date on File: 05/20/22 Do you have thoughts of harming others: None Do you have a plan to hurt others: No Plan Recently lost weight without trying: No Eating poorly because of decreased appetite: No Nutrition Risks: No Nutritional Risk service: No Current occupational status: unemployed Meds Allergies Allergy/AdvReac Type Severity Reaction Status Date / Time polyethylene glycol Allergy Itching Verified 04/03/23 10:26 polyethylene glycol 3350 Allergy Itching Verified 04/03/23 10:26 [From Miralax] Active Medications: Current Medications Acetaminophen (Acetaminophen 325 Mg Tablet) 650 mg PO Q6H PRN PRN Reason: Pain, Mild (Pain Scale 1-3) Last Admin: 04/04/23 05:59 Dose: 650 mg Allopurinol (Allopurinol 100 Mg Tablet) 100 mg PO DAILY@1700 BRITTANY Aspirin (Aspirin Enteric Coated 81 Mg Tablet.Dr) 81 mg PO DAILY [facility] Last Admin: 04/04/23 09:46 Dose: 81 mg Atorvastatin Calcium (Atorvastatin Calcium 80 Mg Tablet) 80 mg PO BEDTIME BRITTANY Fluticasone Propionate (Fluticasone Propionate Nasal 16 Gm [place]) 1 spray NOSTRIL-B DAILY PRN PRN Reason: Allergy Symptoms Furosemide (Furosemide 40 Mg/4 Ml Vial) 40 mg IVPUSH DAILY [facility]; Protocol Last Admin: 04/04/23 09:45 Dose: 40 mg Guaifenesin (Guaifenesin 200 Mg/10 Ml 10 Ml Liquid) 10 ml PO Q4H PRN PRN Reason: cough Heparin Sodium (Porcine) (Heparin Sodium,Porcine 5,000 Unit/Ml Vial) 4,000 unit 40 unit/kg (4000 unit) IVPUSH PROTOCOL BOLUS PRN; Protocol PRN Reason: 40 unit/kg - Heparin Protocol Heparin Sodium (Porcine) (Heparin Sodium,Porcine 5,000 Unit/Ml Vial) 8,000 unit 80 unit/kg (8000 unit) IVPUSH PROTOCOL BOLUS PRN; Protocol PRN Reason: 80 unit/kg - Heparin Protocol Heparin Sodium/Sodium Chloride (Heparin Sodium,Porcine/1/2ns) 25,000 unit in 250 mls @ 0 mls/hr IVCONT .Q0M BRITTANY; Protocol Last Titration: 04/04/23 10:22 Dose: 10 units/kg/hr, 9.95 mls/hr Vancomycin HCl 1,250 mg/ (Sodium Chloride) 250 mls @ 166.667 mls/hr IV Q12H BRITTANY Last Admin: 04/04/23 10:10 Dose: 166.67 mls/hr Losartan Potassium (Losartan Potassium 25 Mg Tablet) 25 mg PO DAILY [facility]; Protocol Last Admin: 04/04/23 09:47 Dose: 25 mg Metoprolol Succinate (Metoprolol Succinate Er 25 Mg Tab.Er.24h) 75 mg PO DAILY [facility]; Protocol Last Admin: 04/04/23 09:46 Dose: 75 mg Omeprazole (Omeprazole 40 Mg Capsule.) 40 mg PO BID@0630,1630 [facility] Last Admin: 04/04/23 05:56 Dose: 40 mg Ondansetron HCl (Ondansetron Hcl 4 Mg/2 Ml Vial) 4 mg IVPUSH Q8H PRN PRN Reason: Nausea and Vomiting Pharmacy Consult (Consult Rx Vancomycin Dosing) 1 each MISCELLANE DAILY PRN PRN Reason: Consult order Senna (Sennosides 8.6 Mg Tablet) 17.2 mg PO BEDTIME PRN PRN Reason: Constipation Sodium Chloride (0.9 % Sodium Chloride Flush 3 Ml Syringe) 3 ml IVFLUSH QSHIFT [facility] Last Admin: 04/04/23 09:45 Dose: 3 ml Home Medications Medication Instructions Recorded Confirmed Last Taken Type allopurinol 100 mg tablet 100 mg PO DAILY@1700 08/07/21 04/03/23 08/25/22 History isosorbide mononitrate 30 mg 30 mg PO DAILY@0808/07/21 04/03/23 08/26/22 08:00 History tablet,extended release 24 hr losartan 25 mg tablet 25 mg PO DAILY@0808/07/21 04/03/23 08/26/22 08:00 History metoprolol succinate 50 mg 50 mg PO DAILY 08/07/21 04/04/23 08/26/22 08:00 History tablet,extended release 24 hr fluticasone propionate 50 1 spray intranasal DAILY PRN 05/16/22 04/03/23 Unknown History mcg/actuation nasal Allergy Symptoms spray,suspension aspirin 81 mg tablet,delayed 81 mg PO DAILY 06/04/22 04/03/23 08/26/22 08:00 History release atorvastatin 80 mg tablet 80 mg PO BEDTIME 06/04/22 04/03/23 08/25/22 History furosemide 20 mg tablet 40 mg PO DAILY 08/27/22 04/03/23 08/26/22 08:00 History metoprolol succinate 25 mg 25 mg PO DAILY 09/16/22 04/04/23 Unknown History tablet,extended release 24 hr finasteride 5 mg tablet 5 mg PO DAILY 04/04/23 04/04/23 Unknown History omeprazole 40 mg capsule,delayed 40 mg PO BID 04/04/23 04/04/23 Unknown History release tamsulosin 0.4 mg capsule 0.4 mg PO DAILY 04/04/23 04/04/23 Unknown History Physical Exam Vital Signs: Vital Signs: Last Vital Signs Temp 98.5 F 04/04/23 07:30 Pulse 64 04/04/23 07:30 Resp 20 04/04/23 07:30 BP 128/61 04/04/23 07:30 Pulse Ox 97 04/04/23 07:30 O2 Del Method Room Air 04/04/23 07:30 BMI result Body Mass Index 31.4 Const: General: cooperative, comfortable, no acute distress, alert and awake Nutritional Appearance: overweight Orientation/consciousness: patient oriented x3 HEENT: Head: Yes normocephalic and Yes atraumatic Neck: Neck: Yes trachea midline, Yes supple and Yes no JVD Resp: Effort & Inspection: normal respiratory effort Auscultation: clear to auscultation bilaterally Cardio: Jugular venous distension: no JVD Rate: regular rate Rhythm: regular rhythm Heart sounds: S1 normal heart sound present, S2 normal heart sound present, no click, no gallops, no murmurs and no rubs GI: Auscultation: normal bowel sounds Skin: General skin exam: other (Cellulitis of the left lower extremity) Neuro: General: patient oriented x3 and no focal motor deficits Extrem: General: No clubbing, No cyanosis and Yes edema Objective Labs and Meds 04/04/23 05:56 04/04/23 05:56 Lab results: Laboratory Results - last 24 hr 04/03/23 04/03/23 04/03/23 11:23 14:52 15:03 WBC 6.8 RBC 2.89 L Hgb 8.9 L Hct 27.5 L MCV 95.2 MCH 30.8 MCHC 32.4 RDW 14.6 Plt Count 300 MPV 9.0 L Immature Gran % (Auto) 0.3 Neut % (Auto) 75.4 H Lymph % (Auto) 12.1 L [place] % (Auto) 9.8 Eos % (Auto) 2.0 Baso % (Auto) 0.4 Lymph # (Auto) 0.8 L [place] # (Auto) 0.7 Eos # (Auto) 0.1 Baso # (Auto) 0.0 Abs Immat Gran (auto) 0.02 Absolute Neuts (auto) 5.2 Absolute Nucleated RBC 0.000 Nucleated RBC % (auto) 0.0 PT INR aPTT Heparin Protocol Sodium 141 Potassium 4.2 Chloride 112 H Carbon Dioxide 21 L Anion Gap 12 BUN 18 H Creatinine 0.79 Estim Creat Clear Calc 106.6 Estimated GFR > 60 Random Glucose 84 Lactic Acid Calcium 9.4 Total Bilirubin 0.3 AST 20 ALT 11 Alkaline Phosphatase 123 H Troponin I High Sens 9.0 D 12.0 B-Natriuretic Peptide 84 Total Protein 6.6 Albumin 3.5 Triglycerides Cholesterol LDL Cholesterol, Calc HDL Cholesterol Urine Color Yellow Urine Appearance Clear Urine pH 5.5 Ur Specific [place] 1.020 Urine Protein Trace Urine Glucose (UA) Negative Urine Ketones Negative Urine Blood Negative Urine Nitrite Negative Ur Leukocyte Esterase Negative Urine RBC 0-2 Urine WBC 0-5 Ur Squamous Epith Cells 0-2 Urine Bacteria None Seen Hyaline Casts 0-2 Respiratory Panel Merchant Adenovirus (Rapid PCR) B.pert (TEM-PCR) B.parapertussis DNA PCR C. pneumoniae DNA (PCR) Coronavirus OC43 (PCR) Coronavirus HKU1 (PCR) Coronavirus 229E (PCR) Coronavirus NL63 (PCR) Human Metapneumovir PCR Influenza A (RT-PCR) Influenza B (RT-PCR) M. pneumoniae (PCR) Parainfluenza 1 (PCR) Parainfluenza 2 (PCR) Parainfluenza 3 (PCR) Parainfluenza 4 (PCR) RSV (PCR) Entero/Rhino (PCR) SARS-CoV-2 RNA (RT-PCR) 04/03/23 04/03/23 04/03/23 18:56 20:57 23:52 WBC RBC Hgb Hct MCV MCH MCHC RDW Plt Count MPV Immature Gran % (Auto) Neut % (Auto) Lymph % (Auto) [place] % (Auto) Eos % (Auto) Baso % (Auto) Lymph # (Auto) [place] # (Auto) Eos # (Auto) Baso # (Auto) Abs Immat Gran (auto) Absolute Neuts (auto) Absolute Nucleated RBC Nucleated RBC % (auto) PT 12.7 INR 1.0 aPTT Heparin Protocol 29.9 L Sodium Potassium Chloride Carbon Dioxide Anion Gap BUN Creatinine Estim Creat Clear Calc Estimated GFR Random Glucose Lactic Acid 1.9 Calcium Total Bilirubin AST ALT Alkaline Phosphatase Troponin I High Sens B-Natriuretic Peptide Total Protein Albumin Triglycerides Cholesterol LDL Cholesterol, Calc HDL Cholesterol Urine Color Urine Appearance Urine pH Ur Specific [place] Urine Protein Urine Glucose (UA) Urine Ketones Urine Blood Urine Nitrite Ur Leukocyte Esterase Urine RBC Urine WBC Ur Squamous Epith Cells Urine Bacteria Hyaline Casts Respiratory Panel Merchant See Note Adenovirus (Rapid PCR) Not Detected B.pert (TEM-PCR) Not Detected B.parapertussis DNA PCR Not Detected C. pneumoniae DNA (PCR) Not Detected Coronavirus OC43 (PCR) Not Detected Coronavirus HKU1 (PCR) Not Detected Coronavirus 229E (PCR) Not Detected Coronavirus NL63 (PCR) Not Detected Human Metapneumovir PCR Not Detected Influenza A (RT-PCR) Not Detected Influenza B (RT-PCR) Not Detected M. pneumoniae (PCR) Not Detected Parainfluenza 1 (PCR) Not Detected Parainfluenza 2 (PCR) Not Detected Parainfluenza 3 (PCR) Not Detected Parainfluenza 4 (PCR) Not Detected RSV (PCR) Not Detected Entero/Rhino (PCR) Not Detected SARS-CoV-2 RNA (RT-PCR) Not Detected 04/04/23 04/04/23 04/04/23 03:29 05:56 09:53 WBC 5.2 RBC 2.81 L Hgb 8.7 L Hct 26.9 L MCV 95.7 MCH 31.0 MCHC 32.3 RDW 14.6 Plt Count 286 MPV 9.3 L Immature Gran % (Auto) 0.2 Neut % (Auto) 60.5 Lymph % (Auto) 24.7 [place] % (Auto) 11.7 H Eos % (Auto) 2.5 Baso % (Auto) 0.4 Lymph # (Auto) 1.3 [place] # (Auto) 0.6 Eos # (Auto) 0.1 Baso # (Auto) 0.0 Abs Immat Gran (auto) 0.01 Absolute Neuts (auto) 3.1 Absolute Nucleated RBC 0.000 Nucleated RBC % (auto) 0.0 PT INR aPTT Heparin Protocol 78.2 H D 78.6 H Sodium 142 Potassium 3.8 Chloride 111 H Carbon Dioxide 23 Anion Gap 12 BUN 16 Creatinine 0.89 Estim Creat Clear Calc 92.5 Estimated GFR > 60 Random Glucose 89 Lactic Acid Calcium 8.7 D Total Bilirubin AST ALT Alkaline Phosphatase Troponin I High Sens B-Natriuretic Peptide Total Protein Albumin Triglycerides 65 Cholesterol 95 LDL Cholesterol, Calc 34 HDL Cholesterol 48 Urine Color Urine Appearance Urine pH Ur Specific [place] Urine Protein Urine Glucose (UA) Urine Ketones Urine Blood Urine Nitrite Ur Leukocyte Esterase Urine RBC Urine WBC Ur Squamous Epith Cells Urine Bacteria Hyaline Casts Respiratory Panel Merchant Adenovirus (Rapid PCR) B.pert (TEM-PCR) B.parapertussis DNA PCR C. pneumoniae DNA (PCR) Coronavirus OC43 (PCR) Coronavirus HKU1 (PCR) Coronavirus 229E (PCR) Coronavirus NL63 (PCR) Human Metapneumovir PCR Influenza A (RT-PCR) Influenza B (RT-PCR) M. pneumoniae (PCR) Parainfluenza 1 (PCR) Parainfluenza 2 (PCR) Parainfluenza 3 (PCR) Parainfluenza 4 (PCR) RSV (PCR) Entero/Rhino (PCR) SARS-CoV-2 RNA (RT-PCR) EKG shows normal sinus rhythm with left bundle-branch block Imaging Radiologist's impression: Impressions Chest X-Ray 04/03/23 11:06 IMPRESSION: Upper normal-size cardiac silhouette. Question interstitial disease. This could be better evaluated with chest CT. Venous Duplex 04/03/23 15:42 IMPRESSION: No DVT demonstrated in the bilateral lower extremity. Assessment and Plan (1) Unstable angina: Status: Acute Patient present with progressive symptoms exertional chest pain or shortness of breath and some concerning symptoms of orthopnea and weight gain over the last couple of weeks with symptoms going on for the last 3 months. This has limited his quality of life significantly. Clinically currently does not appear to be in overt heart failure. However I have been told by the hospitalist team that he was at [facility] more recently the last 6 months I would workup performed. If he can not access the blood work and stress test and echocardiogram from [facility] then we probably do not need to duplicate his workup. At this point time if that is negative then I would also discontinue IV heparin. Continue aspirin, statins, LDL well optimized. Blood pressure is well optimized on losartan as well as metoprolol and isosorbide. Continue the same. Clinically does appear to be in significant heart failure and can switch to p.o. Lasix. Treatment of possible cellulitis as per the hospitalist team. Treatment based on findings of workup done at [facility] if done recently, although patient is having symptoms more recently in the last 3 months Procedures Date of Service Date of Service: 04/04/23
[2023-04-04 12:00] VITALS: BP 137/66; PULSE 62; RESP 18; TEMP 36.9; O2SAT 100
--- NOTE | 2023-04-04 12:33 | HO.PM.IMPN ---
Subjective Subjective Date of Service: 04/05/23 Interval History: Denies chest pain, resting comfortably no shortness of breath, no diaphoresis, no fevers, no chills, tolerating diet with no nausea, no vomiting, no abdominal pain no other acute issues since hospitalization. Review of Systems All other system reviewed and negative. Physical Exam Vital Signs: Vital Signs: Last Vital Signs Temp 98.5 F 04/04/23 07:30 Pulse 64 04/04/23 07:30 Resp 20 04/04/23 07:30 BP 128/61 04/04/23 07:30 Pulse Ox 97 04/04/23 07:30 O2 Del Method Room Air 04/04/23 07:30 BMI result Body Mass Index 31.4 Const: Other: Gen: Resting comfortably in bed, in no acute distress HEENT: sclera anicteric, moist mucus membranes Neck: supple, no JVD Lungs: clear to auscultation bilaterally Heart: regular rate and rhythm Abd: soft, non-tender, non-distended Ext: Bilateral pitting edema both lower extremity, dry scaly skin, shallow venous ulcer, mild erythema right lower leg, no warmth, no drainage, see pictures admission note Skin: warm/well-perfused Neuro: alert and oriented x3, no focal findings Psych: appropriate affect Objective Data Active Medications Acetaminophen (Acetaminophen 325 Mg Tablet) 650 mg PO Q6H PRN PRN Reason: Pain, Mild (Pain Scale 1-3) Last Admin: 04/04/23 05:59 Dose: 650 mg Documented By: JUAN Allopurinol (Allopurinol 100 Mg Tablet) 100 mg PO DAILY@1700 [facility] Aspirin (Aspirin Enteric Coated 81 Mg Tablet.) 81 mg PO DAILY [facility] Last Admin: 04/04/23 09:46 Dose: 81 mg Documented By: SLOANE Atorvastatin Calcium (Atorvastatin Calcium 80 Mg Tablet) 80 mg PO BEDTIME [facility] Fluticasone Propionate (Fluticasone Propionate Nasal 16 Gm [place]) 1 spray NOSTRIL-B DAILY PRN PRN Reason: Allergy Symptoms Furosemide (Furosemide 40 Mg/4 Ml Vial) 40 mg IVPUSH DAILY [facility]; Protocol Last Admin: 04/04/23 09:45 Dose: 40 mg Documented By: SLOANE Guaifenesin (Guaifenesin 200 Mg/10 Ml 10 Ml Liquid) 10 ml PO Q4H PRN PRN Reason: cough Heparin Sodium (Porcine) (Heparin Sodium,Porcine 5,000 Unit/Ml Vial) 4,000 unit 40 unit/kg (4000 unit) IVPUSH PROTOCOL BOLUS PRN; Protocol PRN Reason: 40 unit/kg - Heparin Protocol Heparin Sodium (Porcine) (Heparin Sodium,Porcine 5,000 Unit/Ml Vial) 8,000 unit 80 unit/kg (8000 unit) IVPUSH PROTOCOL BOLUS PRN; Protocol PRN Reason: 80 unit/kg - Heparin Protocol Heparin Sodium/Sodium Chloride (Heparin Sodium,Porcine/1/2ns) 25,000 unit in 250 mls @ 0 mls/hr IVCONT .Q0M [facility]; Protocol Last Titration: 04/04/23 10:22 Dose: 10 units/kg/hr, 9.95 mls/hr Documented By: SLOANE Co-signed By: GEOVANI Vancomycin HCl 1,250 mg/ (Sodium Chloride) 250 mls @ 166.667 mls/hr IV Q12H [facility] Last Infusion: 04/04/23 11:48 Dose: Infused Documented By: SLOANE Losartan Potassium (Losartan Potassium 25 Mg Tablet) 25 mg PO DAILY [facility]; Protocol Last Admin: 04/04/23 09:47 Dose: 25 mg Documented By: SLOANE Metoprolol Succinate (Metoprolol Succinate Er 25 Mg Tab.Er.24h) 75 mg PO DAILY [facility]; Protocol Last Admin: 04/04/23 09:46 Dose: 75 mg Documented By: SLOANE Omeprazole (Omeprazole 40 Mg Capsule.Dr) 40 mg PO BID@0630,1630 [facility] Last Admin: 04/04/23 05:56 Dose: 40 mg Documented By: JUAN Ondansetron HCl (Ondansetron Hcl 4 Mg/2 Ml Vial) 4 mg IVPUSH Q8H PRN PRN Reason: Nausea and Vomiting Pharmacy Consult (Consult Rx Vancomycin Dosing) 1 each MISCELLANE DAILY PRN PRN Reason: Consult order Senna (Sennosides 8.6 Mg Tablet) 17.2 mg PO BEDTIME PRN PRN Reason: Constipation Sodium Chloride (0.9 % Sodium Chloride Flush 3 Ml Syringe) [address] [facility] Last Admin: 04/04/23 09:45 Dose: 3 ml Documented By: SLOANE Labs 04/04/23 05:56 04/05/23 08:05 Labs: Laboratory Results - last 24 hr 04/03/23 04/03/23 04/03/23 14:52 18:56 20:57 MCV MCH MCHC RDW Plt Count MPV Immature Gran % (Auto) Neut % (Auto) Lymph % (Auto) [place] % (Auto) Eos % (Auto) Baso % (Auto) Lymph # (Auto) [place] # (Auto) Eos # (Auto) Baso # (Auto) Abs Immat Gran (auto) Absolute Neuts (auto) Absolute Nucleated RBC Nucleated RBC % (auto) PT 12.7 INR 1.0 aPTT Heparin Protocol 29.9 L Anion Gap Estim Creat Clear Calc Estimated GFR Random Glucose Lactic Acid 1.9 Calcium Triglycerides Cholesterol LDL Cholesterol, Calc HDL Cholesterol Urine Color Yellow Urine Appearance Clear Urine pH 5.5 Ur Specific [place] 1.020 Urine Protein Trace Urine Glucose (UA) Negative Urine Ketones Negative Urine Blood Negative Urine Nitrite Negative Ur Leukocyte Esterase Negative Urine RBC 0-2 Urine WBC 0-5 Ur Squamous Epith Cells 0-2 Urine Bacteria None Seen Hyaline Casts 0-2 Respiratory Panel Merchant Adenovirus (Rapid PCR) B.pert (TEM-PCR) B.parapertussis DNA PCR C. pneumoniae DNA (PCR) Coronavirus OC43 (PCR) Coronavirus HKU1 (PCR) Coronavirus 229E (PCR) Coronavirus NL63 (PCR) Human Metapneumovir PCR Influenza A (RT-PCR) Influenza B (RT-PCR) M. pneumoniae (PCR) Parainfluenza 1 (PCR) Parainfluenza 2 (PCR) Parainfluenza 3 (PCR) Parainfluenza 4 (PCR) RSV (PCR) Entero/Rhino (PCR) SARS-CoV-2 RNA (RT-PCR) 04/03/23 04/04/23 04/04/23 23:52 03:29 05:56 MCV 95.7 MCH 31.0 MCHC 32.3 RDW 14.6 Plt Count 286 MPV 9.3 L Immature Gran % (Auto) 0.2 Neut % (Auto) 60.5 Lymph % (Auto) 24.7 [place] % (Auto) 11.7 H Eos % (Auto) 2.5 Baso % (Auto) 0.4 Lymph # (Auto) 1.3 [place] # (Auto) 0.6 Eos # (Auto) 0.1 Baso # (Auto) 0.0 Abs Immat Gran (auto) 0.01 Absolute Neuts (auto) 3.1 Absolute Nucleated RBC 0.000 Nucleated RBC % (auto) 0.0 PT INR aPTT Heparin Protocol 78.2 H D Anion Gap 12 Estim Creat Clear Calc 92.5 Estimated GFR > 60 Random Glucose 89 Lactic Acid Calcium 8.7 D Triglycerides 65 Cholesterol 95 LDL Cholesterol, Calc 34 HDL Cholesterol 48 Urine Color Urine Appearance Urine pH Ur Specific [place] Urine Protein Urine Glucose (UA) Urine Ketones Urine Blood Urine Nitrite Ur Leukocyte Esterase Urine RBC Urine WBC Ur Squamous Epith Cells Urine Bacteria Hyaline Casts Respiratory Panel Merchant See Note Adenovirus (Rapid PCR) Not Detected B.pert (TEM-PCR) Not Detected B.parapertussis DNA PCR Not Detected C. pneumoniae DNA (PCR) Not Detected Coronavirus OC43 (PCR) Not Detected Coronavirus HKU1 (PCR) Not Detected Coronavirus 229E (PCR) Not Detected Coronavirus NL63 (PCR) Not Detected Human Metapneumovir PCR Not Detected Influenza A (RT-PCR) Not Detected Influenza B (RT-PCR) Not Detected M. pneumoniae (PCR) Not Detected Parainfluenza 1 (PCR) Not Detected Parainfluenza 2 (PCR) Not Detected Parainfluenza 3 (PCR) Not Detected Parainfluenza 4 (PCR) Not Detected RSV (PCR) Not Detected Entero/Rhino (PCR) Not Detected SARS-CoV-2 RNA (RT-PCR) Not Detected 04/04/23 09:53 MCV MCH MCHC RDW Plt Count MPV Immature Gran % (Auto) Neut % (Auto) Lymph % (Auto) [place] % (Auto) Eos % (Auto) Baso % (Auto) Lymph # (Auto) [place] # (Auto) Eos # (Auto) Baso # (Auto) Abs Immat Gran (auto) Absolute Neuts (auto) Absolute Nucleated RBC Nucleated RBC % (auto) PT INR aPTT Heparin Protocol 78.6 H Anion Gap Estim Creat Clear Calc Estimated GFR Random Glucose Lactic Acid Calcium Triglycerides Cholesterol LDL Cholesterol, Calc HDL Cholesterol Urine Color Urine Appearance Urine pH Ur Specific [place] Urine Protein Urine Glucose (UA) Urine Ketones Urine Blood Urine Nitrite Ur Leukocyte Esterase Urine RBC Urine WBC Ur Squamous Epith Cells Urine Bacteria Hyaline Casts Respiratory Panel Merchant Adenovirus (Rapid PCR) B.pert (TEM-PCR) B.parapertussis DNA PCR C. pneumoniae DNA (PCR) Coronavirus OC43 (PCR) Coronavirus HKU1 (PCR) Coronavirus 229E (PCR) Coronavirus NL63 (PCR) Human Metapneumovir PCR Influenza A (RT-PCR) Influenza B (RT-PCR) M. pneumoniae (PCR) Parainfluenza 1 (PCR) Parainfluenza 2 (PCR) Parainfluenza 3 (PCR) Parainfluenza 4 (PCR) RSV (PCR) Entero/Rhino (PCR) SARS-CoV-2 RNA (RT-PCR) Assessment and Plan (1) Chest pain: Status: Acute (2) Cellulitis of left leg: Status: Acute Plan 67 year old male with history of CAD s/p PCI, LBBB, unstable angina, NICM, HFrEF, htn, gout, PUD, hx partial gastrectomy admitted for management of purulent cellulitis, unstable angina, and chf exacerbation #Acute cellulitis LLE- background chronic venous stasis dermatitis with venous ulcers -on IV vanco (initiated 04/03),No leukocytosis, no sepsis -wound care consult -follow cbc, blood cultures pending # chest pain [place] to be typical concerning for unstable angina, negative troponins, EKG chronic left bundle branch block Reviewed records from [facility] patient has had multiple hospitalization for chest pain and syncope at [facility] last admission in December 2022 Patient recent repeat echo showed no changes had normal EF, no wall motion abnormality Last cardiac catheterization January 2022 showed patent LAD stent, and no significant coronary artery disease Will DC IV heparin Case discussed with price economist Dr. Sigala, he recommend lexiscan MIBI stress test. Will continue aspirin 81mg daily, beta-blockers and statins # leg edema no evidence of acute CHF exacerbation (echo from [facility] November normal EF) recommend to keep legs elevated. Continue home dose of Lasix,Teds after cellulitis improves. #HTN -stable blood pressure, continue metoprolol,and losartan. #GERD/PUD -cont. ppi, carafate # BPH continue Flomax # History of gout continue allopurinol DVT prophylaxis- heparin Full code Pt requires inpt stay for IV antibiotics for extensive purulent cellulitis and for further workup for recurrent chest pain Quality Stroke Does the patient have a stroke diagnosis?: No VTE Prior VTE?: No VTE Risk Level:: Medical - moderate - high VTE Device Contraindication: Treatment Not Indicated VTE Drug Contraindication: N/A - Med Ordered
[2023-04-04 15:25] VITALS: BP 142/65; PULSE 61; RESP 20; TEMP 36.7; O2SAT 99
[2023-04-04 16:22] LABS: PTT Heparin Drip 32.2 SEC (53-77.9)
[2023-04-04] MEDS: allopurinoL 100 MG TABLET PO (17:26)
[2023-04-04 19:08] VITALS: BP 141/62; PULSE 60; RESP 20; TEMP 37.2; O2SAT 99
[2023-04-04] MEDS: Atorvastatin Calcium 80 MG TABLET PO (21:36)
[2023-04-04 23:58] VITALS: BP 142/61; PULSE 65; RESP 18; TEMP 37.1; O2SAT 97
[2023-04-05] VITALS (7 sets, daily range): BP systolic 124–153; BP diastolic 56–74; PULSE 56–68; RESP 18–20; TEMP 36.4–37.8; O2SAT 96–100; BMI 30.6
--- NOTE | 2023-04-05 | ECG_ITS ---
Test Reason : chest pain Blood Pressure : / mmHG Vent. Rate : 061 BPM Atrial Rate : 061 BPM P-R Int : 164 ms QRS Dur : 142 ms QT Int : 466 ms P-R-T Axes : 042 013 075 degrees QTc Int : 469 ms Normal sinus rhythm Left bundle branch block Abnormal ECG When compared with ECG of 03-APR-2023 14:33, No significant change was found Referred By: Reese Valentino Electronically Signed By:KENNETH EVANS
--- NOTE | 2023-04-05 | CA_ITS ---
Acquisition Time: 2023-04-05 10:45:28 Total Exercise Time: 00:02:00 Test Indications: CP, LBBB, SYNCOPE Medications: SEE H Protocol: LEXISCAN Max HR: 081 BPM 53% of Pred: 151 BPM Max BP: 130/068 mmHG Max Work Load: 1.0 METS Pharmacological stress test with Lexiscan injection while sitting, without anginal symptoms, with isolated PVCs, with normotensive response to injection, without EKG changes. Nuclear images pending. Test reviewed with Dr. Owens. Referred By: Godwin Owens Overread By: Yazmin Diaz
[2023-04-05] MEDS: 0.9 % Sodium Chloride Flush 3 ML SYRINGE IVFLUSH ×4 (00:01→19:57)
[2023-04-05] MEDS: Nitroglycerin 0.4 MG TAB.SUBL SUBLINGUAL ×2 (06:30→07:16)
[2023-04-05] MEDS: Omeprazole 40 MG CAPSULE.DR PO ×2 (06:30→16:42)
--- NOTE | 2023-04-05 07:37 | PC.NURSE ---
Pt woke c/o 10/10 crushing chest pain radiating down left arm. Vitals stable, EGK done and sent to Dr. Chicho Swain SR with BBB. Sublingual nitro ordered and administered with minimal effect, second dose administered. Day RN aware.
[2023-04-05] MEDS: Tamsulosin HCL 0.4 MG CAPSULE PO (08:01)
[2023-04-05] MEDS: Losartan Potassium 25 MG TABLET PO (08:01)
[2023-04-05] MEDS: Furosemide 40 MG TABLET PO (08:01)
[2023-04-05] MEDS: Metoprolol Succinate ER 25 MG TAB.ER.24H 75 MG PO (08:01)
[2023-04-05] MEDS: Aspirin Enteric Coated 81 MG TABLET.DR PO (08:01)
[2023-04-05 08:52] LABS: Vancomycin Random 18.1 mcg/mL (15-20)
[2023-04-05 08:54] LABS: Estimated Glomerular Filt Rate > 60
[2023-04-05 09:02] LABS: Troponin-I High Sensitivity 9.7 ng/L (<3.5-35.0)
--- NOTE | 2023-04-05 09:09 | HE.PHANOTE ---
RE: VANCO DOSING Random came back as 18.1 (more than predicted 16) so dose was decreased to 1000 mg q12h (predicted AUC 464 and trough 14.8). Another random is scheduled for 04/06/23 @0800.
--- NOTE | 2023-04-05 09:58 | P.PNCA_ITS ---
Subjective Subjective Date of Service: 04/05/23 Interval history: Patient states he was doing okay till a few months back but then started noticing chest pain and shortness of breath at different times. Initially, described as exertional but when I questioned repeatedly, he states that can happen with or without exertion. History of prior PCI to LAD in 2020. Also has chronic left bundle-branch block. Currently homeless. Review of Systems Review of Systems Yes all other systems are reviewed and are negative Constitutional: Reports as per HPI and Reports no additional constitutional complaints Eyes: Reports as per HPI and Denies no additional eye complaints Denies system reviewed and no additional complaints, except as documented and Reports as per HPI Cardiovascular: Reports as per HPI, Reports no additional cardiovascular complaints, Denies acrocyanosis, Denies cool extremities, Reports chest pain, Denies leg edema, Denies lightheadedness, Denies palpitations and Reports dyspnea Respiratory: Reports as per HPI, Denies no additional respiratory complaints and Reports dyspnea Gastrointestinal: Reports as per HPI and Denies no additional gastrointestinal complaints Genitourinary: Reports no additional male genitourinary complaints and Reports as per HPI Musculoskeletal: Reports no additional musculoskeletal complaints and Reports as per HPI Skin/Breast: Reports system reviewed and no additional complaints, except as docu Reports system reviewed and no additional complaints, except as documented and Reports as per HPI Psychiatric: Reports no additional psychiatric complaints and Reports as per HPI Endocrine: Reports no additional endocrine complaints, Reports as per HPI and Denies palpitations Hematologic/Lymphatic: Reports no additional hematologic/lymphatic complaints and Reports as per HPI Allergic/Immunologic: Reports no additional allergic/immunologic complaints and Reports as per HPI Physical Exam Vital Signs: Last Vital Signs Temp 97.8 F 04/05/23 07:12 Pulse 61 04/05/23 07:12 Resp 18 04/05/23 07:12 BP 124/56 L 04/05/23 07:12 Pulse Ox 97 04/05/23 07:12 O2 Del Method Room Air 04/05/23 07:12 BMI result Body Mass Index 30.6 Const General: comfortable and no acute distress Orientation/consciousness: patient oriented x3 HEENT Other: Unremarkable Head: Yes normal to inspection Neck Neck: Yes normal visual inspection Chest Chest palpation & inspection: normal inspection of the chest Resp Auscultation: clear to auscultation bilaterally Cardio Palpation: normal PMI Heart sounds: S1 normal heart sound present, S2 normal heart sound present, no gallops, no murmurs and no rubs GI Palpation (GI): Soft to palpation Back/Spine/Pelvis Other: unremarkable Skin General skin exam: no rashes or lesions noted Neuro General: patient oriented x3 Extrem General: Yes normal to inspection Psych Mental Status: mental status grossly normal Objective Labs and Meds 04/04/23 05:56 04/05/23 08:05 Lab results: Laboratory Results - last 24 hr 04/03/23 04/04/23 04/04/23 23:52 09:53 15:50 aPTT Heparin Protocol 78.6 H Creatinine Estim Creat Clear Calc Estimated GFR Troponin I High Sens Hold Red Top See Note Random Vancomycin Respiratory Panel Merchant See Note Adenovirus (Rapid PCR) Not Detected B.pert (TEM-PCR) Not Detected B.parapertussis DNA PCR Not Detected C. pneumoniae DNA (PCR) Not Detected Coronavirus OC43 (PCR) Not Detected Coronavirus HKU1 (PCR) Not Detected Coronavirus 229E (PCR) Not Detected Coronavirus NL63 (PCR) Not Detected Human Metapneumovir PCR Not Detected Influenza A (RT-PCR) Not Detected Influenza B (RT-PCR) Not Detected M. pneumoniae (PCR) Not Detected Parainfluenza 1 (PCR) Not Detected Parainfluenza 2 (PCR) Not Detected Parainfluenza 3 (PCR) Not Detected Parainfluenza 4 (PCR) Not Detected RSV (PCR) Not Detected Entero/Rhino (PCR) Not Detected SARS-CoV-2 RNA (RT-PCR) Not Detected 04/04/23 04/05/23 16:01 08:05 aPTT Heparin Protocol 32.2 L D Creatinine 0.79 Estim Creat Clear Calc 103.0 Estimated GFR > 60 Troponin I High Sens 9.7 Hold Red Top Random Vancomycin 18.1 Respiratory Panel Merchant Adenovirus (Rapid PCR) B.pert (TEM-PCR) B.parapertussis DNA PCR C. pneumoniae DNA (PCR) Coronavirus OC43 (PCR) Coronavirus HKU1 (PCR) Coronavirus 229E (PCR) Coronavirus NL63 (PCR) Human Metapneumovir PCR Influenza A (RT-PCR) Influenza B (RT-PCR) M. pneumoniae (PCR) Parainfluenza 1 (PCR) Parainfluenza 2 (PCR) Parainfluenza 3 (PCR) Parainfluenza 4 (PCR) RSV (PCR) Entero/Rhino (PCR) SARS-CoV-2 RNA (RT-PCR) ECG Interpretation: EKG today with sinus rhythm with left bundle-branch block pattern. Progress Note: A&P Assessment and plan (1) Chest pain: Status: Acute (2) Coronary artery disease: Status: Acute (3) Left bundle branch block: Status: Acute Plan In this hospitalization, troponins are well within range. Last month, they were borderline high. Echocardiogram from November from [facility] shows LVEF of 55-60%, no wall motion abnormalities and otherwise unremarkable. Last cardiac catheterization from 2021 shows patent LAD stent but otherwise no significant disease. Overall, atypical symptoms but known prior PCI. We will get a Lexiscan MIBI today. Discussed with hospitalist. Time Spent With Patient Time: Total time managing care of this patient today 45 minutes. This includes time spent in review of chart, [facility] documentation, laboratory data, imaging studies, review of telemetry, counseling patient, discussion with hospitalist, RN, documentation, coordination of care. Progress Note: Quality Stroke Does the patient have a stroke diagnosis?: No Procedures Date of Service Date of Service: 04/05/23
--- NOTE | 2023-04-05 11:51 | P.PNIM_ITS ---
Subjective Subjective Date of Service: 04/05/23 Interval History: Complained of chest pain again this morning , while in bed with radiation to left arm EKG showed bundle branch block treated with sublingual nitro with minimal affect, negative troponin. Review of Systems All other system reviewed and negative Physical Exam 2 Vital Signs: Vital Signs: Last Vital Signs Temp 97.8 F 04/05/23 07:12 Pulse 61 04/05/23 07:12 Resp 18 04/05/23 07:12 BP 124/56 L 04/05/23 07:12 Pulse Ox 97 04/05/23 07:12 O2 Del Method Room Air 04/05/23 07:12 BMI result Body Mass Index 30.6 Const: Other: Gen: Resting comfortably in bed, in no acute distress HEENT: sclera anicteric, moist mucus membranes Neck: supple, no JVD Lungs: clear to auscultation bilaterally Heart: regular rate and rhythm Abd: soft, non-tender, non-distended Ext: Bilateral pitting edema both lower extremity, dry scaly skin, shallow venous ulcer, mild erythema right lower leg, no warmth, no drainage, see pictures admission note Skin: warm/well-perfused Neuro: alert and oriented x3, no focal findings Psych: appropriate affect Objective Data Active Medications Acetaminophen (Acetaminophen 325 Mg Tablet) 650 mg PO Q6H PRN PRN Reason: Pain, Mild (Pain Scale 1-3) Last Admin: 04/04/23 22:52 Dose: 650 mg Documented By: DAVID Allopurinol (Allopurinol 100 Mg Tablet) 100 mg PO DAILY@1700 [facility] Last Admin: 04/04/23 17:26 Dose: 100 mg Documented By: SLOANE Aspirin (Aspirin Enteric Coated 81 Mg Tablet.Dr) 81 mg PO DAILY [facility] Last Admin: 04/05/23 08:01 Dose: 81 mg Documented By: MEREDITH Atorvastatin Calcium (Atorvastatin Calcium 80 Mg Tablet) 80 mg PO BEDTIME [facility] Last Admin: 04/04/23 21:36 Dose: 80 mg Documented By: DAVID Fluticasone Propionate (Fluticasone Propionate Nasal 16 Gm [place]) 1 spray NOSTRIL-B DAILY PRN PRN Reason: Allergy Symptoms Furosemide (Furosemide 40 Mg Tablet) 40 mg PO DAILY [facility]; Protocol Last Admin: 04/05/23 08:01 Dose: 40 mg Documented By: HO.CARRAM Guaifenesin (Guaifenesin 200 Mg/10 Ml 10 Ml Liquid) 10 ml PO Q4H PRN PRN Reason: cough Vancomycin HCl 1,000 mg/ (Sodium Chloride) 270 mls @ 270 mls/hr IV Q12H [facility] Losartan Potassium (Losartan Potassium 25 Mg Tablet) 25 mg PO DAILY [facility]; Protocol Last Admin: 04/05/23 08:01 Dose: 25 mg Documented By: MEREDITH Metoprolol Succinate (Metoprolol Succinate Er 25 Mg Tab.Er.24h) 75 mg PO DAILY [facility]; Protocol Last Admin: 04/05/23 08:01 Dose: 75 mg Documented By: MEREDITH Nitroglycerin (Nitroglycerin 0.4 Mg Tab.Subl) 0.4 mg SUBLINGUAL Q5MX3 PRN PRN Reason: Chest Pain Last Admin: 04/05/23 07:16 Dose: 0.4 mg Documented By: ERICA Omeprazole (Omeprazole 40 Mg Capsule.Dr) 40 mg PO BID@0630,1630 [facility] Last Admin: 04/05/23 06:30 Dose: 40 mg Documented By: ERICA Ondansetron HCl (Ondansetron Hcl 4 Mg/2 Ml Vial) 4 mg IVPUSH Q8H PRN PRN Reason: Nausea and Vomiting Pharmacy Consult (Consult Rx Vancomycin Dosing) 1 each MISCELLANE DAILY PRN PRN Reason: Consult order Senna (Sennosides 8.6 Mg Tablet) 17.2 mg PO BEDTIME PRN PRN Reason: Constipation Sodium Chloride (0.9 % Sodium Chloride Flush 3 Ml Syringe) 3 ml IVFLUSH QSHIFT [facility] Last Admin: 04/05/23 08:02 Dose: 3 ml Documented By: MEREDITH Tamsulosin HCl (Tamsulosin Hcl 0.4 Mg Capsule) 0.4 mg PO DAILY [facility] Last Admin: 04/05/23 08:01 Dose: 0.4 mg Documented By: MEREDITH Labs 04/04/23 05:56 04/05/23 08:05 Labs: Laboratory Results - last 24 hr 04/04/23 04/04/23 04/05/23 15:50 16:01 08:05 aPTT Heparin Protocol 32.2 L D Estim Creat Clear Calc 103.0 Estimated GFR > 60 Hold Red Top See Note Random Vancomycin 18.1 Microbiology Microbiology Results: Microbiology 04/03/23 18:56 Blood Culture - Preliminary Blood - Venous Gram positive cocci 04/03/23 19:43 Blood Culture - Preliminary Blood - Venous No growth after 24 hours. Assessment and Plan (1) Chest pain: Status: Acute (2) Cellulitis of left leg: Status: Acute Plan 67 year old male with history of CAD s/p PCI, LBBB, unstable angina, NICM, HFrEF, htn, gout, PUD, hx partial gastrectomy admitted for management of purulent cellulitis, unstable angina, and chf exacerbation # Gram-positive bacteremia/ Acute cellulitis LLE- background chronic venous stasis dermatitis with venous ulcers - 1/2 blood culture positive for Gram-positive cocci in clusters,, no fevers, normal WBC count -on IV vanco (initiated 04/03),No leukocytosis, no sepsis -wound care consult -follow cbc, and final blood cultures # chest pain [place] to be typical concerning for unstable angina, negative troponins, EKG chronic left bundle branch block Reviewed records from [facility] patient has had multiple hospitalization for chest pain and syncope at [facility] last admission in December 2022 Patient recent repeat echo showed no changes had normal EF, no wall motion abnormality Last cardiac catheterization January 2022 showed patent LAD stent, and no significant coronary artery disease Will DC IV heparin Patient with recurrent chest pain occurring at rest and with activity with radiation to left arm Case discussed with football pad repairer Dr. Owens, he recommend lexiscan MIBI stress test. Will continue aspirin 81mg daily, beta-blockers and statins LDL 34 # leg edema no evidence of acute CHF exacerbation (echo from [facility] November normal EF) recommend to keep legs elevated. Continue home dose of Lasix,Teds after cellulitis improves. #HTN -stable blood pressure, continue metoprolol,and losartan. #GERD/PUD -cont. ppi, carafate # BPH continue Flomax # History of gout continue allopurinol # chronic anemia stable follow CBC.check stol guaiac,b12 and folate,nl iron studies in the past. DVT prophylaxis- lovenox subq Full code Pt requires inpt stay for IV antibiotics for extensive purulent cellulitis and for further workup for recurrent chest pain Quality Stroke Does the patient have a stroke diagnosis?: No VTE Prior VTE?: No VTE Risk Level:: Medical - moderate - high VTE Device Contraindication: Treatment Not Indicated VTE Drug Contraindication: N/A - Med Ordered
[2023-04-05] MEDS: vancomycin HCL 1,000 MG in 0.9 % Sodium Chloride 250 ML 270 MG IV ×2 (12:21→21:56)
[2023-04-05] MEDS: Enoxaparin Sodium 40 MG/0.4 ML SYRINGE SUBCUT (12:21)
[2023-04-05] MEDS: allopurinoL 100 MG TABLET PO (16:42)
--- NOTE | 2023-04-05 17:02 | HO.WOUND ---
Wound Consult: Initial 68yr old? M admitted to [facility] on - See progress notes and H&P for detailed history.? Wound consult placed for Bilateral Lower Leg wound POA.? Patient agreeable to assessment and photo documentation.? Pt reports he has had these lower legs wounds for sometime - he reports the wound are a result of lower leg swelling. Patient reports he is homless and does not have access to regular showering. We discussed the importance of cleansing and keep the wounds clean and hydrating his skin and elevate his lower legs throughout the day. The patient shared he is often walking throughout the day and does not have the option to elevate his lower legs at this time. Bilateral Lower Legs Etiology: ??Venous Dermatitis Wound Bed: scattered areas of partial thickness tissue loss with dried wound bed Drainage / Odor: serous drainage noted on dressing at time of removal Edges: ? Irregular and attached Geri wound: pink erythema - ?No Induration, Fluctuance or Warmth noted Pain: Pain and tenderness reported Goals of Treatment: ? Moist wound healing with xeroform Recommendations: 1. Bilateral Lower Legs - Elevate lower legs off of surface of bed with use of pillows.? Cleanse with NS, Pat dry.? Apply vaseline to both legs, apply layer of xeroform to open wound beds secure with ABD pad, gauze wrap and tape.? Change Daily. Re-consult wound care Nurse for wound deterioration or wound changes.
[2023-04-05] MEDS: Acetaminophen 325 MG TABLET 650 MG PO (19:56)
[2023-04-05] MEDS: Atorvastatin Calcium 80 MG TABLET PO (19:57)
[2023-04-06] VITALS (8 sets, daily range): BP systolic 122–148; BP diastolic 56–70; PULSE 59–75; RESP 18–20; TEMP 36.8–37.5; O2SAT 95–98
[2023-04-06] MEDS: Omeprazole 40 MG CAPSULE.DR PO ×2 (05:02→17:17)
[2023-04-06] MEDS: Losartan Potassium 25 MG TABLET PO (07:57)
[2023-04-06] MEDS: Furosemide 40 MG TABLET PO (07:57)
[2023-04-06] MEDS: Tamsulosin HCL 0.4 MG CAPSULE PO (07:57)
[2023-04-06] MEDS: Metoprolol Succinate ER 25 MG TAB.ER.24H 75 MG PO (07:58)
[2023-04-06] MEDS: Aspirin Enteric Coated 81 MG TABLET.DR PO (07:58)
[2023-04-06] MEDS: Acetaminophen 325 MG TABLET 650 MG PO ×2 (07:58→19:50)
[2023-04-06] MEDS: 0.9 % Sodium Chloride Flush 3 ML SYRINGE IVFLUSH ×3 (07:59→19:51)
[2023-04-06 08:02] LABS: Creatinine Clr Calc Pharmacy 100.4; Estimated Glomerular Filt Rate > 60
[2023-04-06 08:04] LABS: Vancomycin Random 15.6 mcg/mL (15-20)
--- NOTE | 2023-04-06 09:46 | MHC.CM.PN ---
referrals made for STR, SNF's have accepted, pt. chose [facility]. CM will arrange for BLS transport when DC.
[2023-04-06] MEDS: vancomycin HCL 1,000 MG in 0.9 % Sodium Chloride 250 ML 270 MG IV (11:36)
[2023-04-06] MEDS: Enoxaparin Sodium 40 MG/0.4 ML SYRINGE SUBCUT (11:36)
--- NOTE | 2023-04-06 13:38 | MHC.CM.PN ---
Pt. has been medically cleared for DC, he will transfer via ambulance today to rehab for STR.
--- NOTE | 2023-04-06 14:17 | MHC.CM.PN ---
STR has asked to DC pt. on 04/07, will plan on DC at 11:00 on 04/07/23.
[2023-04-06] MEDS: Doxycycline Monohydrate 100 MG CAPSULE PO (14:45)
--- NOTE | 2023-04-06 15:20 | P.PNIM_ITS ---
Subjective Subjective Date of Service: 04/06/23 Interval History: Denies chest pain, no shortness of breath is ambulating with walker, no fevers no chills, underwent stress test imaging part this morning, no acute issues overnight no nausea, no vomiting, no abdominal pain tolerating diet. Review of Systems All other system reviewed and negative. Physical Exam 2 Vital Signs: Vital Signs: Last Vital Signs Temp 99.5 F 04/06/23 11:00 Pulse 66 04/06/23 14:28 Resp 20 04/06/23 11:00 BP 139/62 04/06/23 14:28 Pulse Ox 97 04/06/23 14:28 O2 Del Method Room Air 04/06/23 11:00 BMI result Body Mass Index 30.6 Const: Other: Gen: Resting comfortably in bed, in no acute distress HEENT: sclera anicteric, moist mucus membranes Neck: supple, no JVD Lungs: clear to auscultation bilaterally Heart: regular rate and rhythm Abd: soft, non-tender, non-distended Ext: Bilateral mild pitting edema both lower extremity, dry scaly skin, shallow venous ulcer, mild erythema left lower leg improving, no warmth, no drainage, left calf shallow ulcer see pictures admission note Skin: warm/well-perfused Neuro: alert and oriented x3, no focal findings Psych: appropriate affect Objective Data Active Medications Acetaminophen (Acetaminophen 325 Mg Tablet) 650 mg PO Q6H PRN PRN Reason: Pain, Mild (Pain Scale 1-3) Last Admin: 04/06/23 07:58 Dose: 650 mg Documented By: KLEVER Allopurinol (Allopurinol 100 Mg Tablet) 100 mg PO DAILY@1700 [facility] Last Admin: 04/05/23 16:42 Dose: 100 mg Documented By: MEREDITH Aspirin (Aspirin Enteric Coated 81 Mg Tablet.) 81 mg PO DAILY [facility] Last Admin: 04/06/23 07:58 Dose: 81 mg Documented By: KLEVER Atorvastatin Calcium (Atorvastatin Calcium 80 Mg Tablet) 80 mg PO BEDTIME [facility] Last Admin: 04/05/23 19:57 Dose: 80 mg Documented By: BRITTANIE Doxycycline Monohydrate (Doxycycline Monohydrate 100 Mg Capsule) 100 mg PO Q12H [facility] Last Admin: 04/06/23 14:45 Dose: 100 mg Documented By: KLEVER Enoxaparin Sodium (Enoxaparin Sodium 40 Mg/0.4 Ml Syringe) 40 mg SUBCUT Q24H [facility] Last Admin: 04/06/23 11:36 Dose: 40 mg Documented By: KLEVER Fluticasone Propionate (Fluticasone Propionate Nasal 16 Gm [place]) 1 spray NOSTRIL-B DAILY PRN PRN Reason: Allergy Symptoms Furosemide (Furosemide 40 Mg Tablet) 40 mg PO DAILY [facility]; Protocol Last Admin: 04/06/23 07:57 Dose: 40 mg Documented By: KLEVER Guaifenesin (Guaifenesin 200 Mg/10 Ml 10 Ml Liquid) 10 ml PO Q4H PRN PRN Reason: cough Losartan Potassium (Losartan Potassium 25 Mg Tablet) 25 mg PO DAILY [facility]; Protocol Last Admin: 04/06/23 07:57 Dose: 25 mg Documented By: KLEVER Metoprolol Succinate (Metoprolol Succinate Er 25 Mg Tab.Er.24h) 75 mg PO DAILY [facility]; Protocol Last Admin: 04/06/23 07:58 Dose: 75 mg Documented By: KLEVER Nitroglycerin (Nitroglycerin 0.4 Mg Tab.Subl) 0.4 mg SUBLINGUAL Q5MX3 PRN PRN Reason: Chest Pain Last Admin: 04/05/23 07:16 Dose: 0.4 mg Documented By: ERICA Omeprazole (Omeprazole 40 Mg Capsule.Dr) 40 mg PO BID@0630,1630 [facility] Last Admin: 04/06/23 05:02 Dose: 40 mg Documented By: BRITTANIE Ondansetron HCl (Ondansetron Hcl 4 Mg/2 Ml Vial) 4 mg IVPUSH Q8H PRN PRN Reason: Nausea and Vomiting Senna (Sennosides 8.6 Mg Tablet) 17.2 mg PO BEDTIME PRN PRN Reason: Constipation Sodium Chloride (0.9 % Sodium Chloride Flush 3 Ml Syringe) 3 ml IVFLUSH QSHIFT [facility] Last Admin: 04/06/23 07:59 Dose: 3 ml Documented By: KLEVER Tamsulosin HCl (Tamsulosin Hcl 0.4 Mg Capsule) 0.4 mg PO DAILY [facility] Last Admin: 04/06/23 07:57 Dose: 0.4 mg Documented By: KLEVER Labs 04/04/23 05:56 04/06/23 07:05 Labs: Laboratory Results - last 24 hr 04/06/23 07:05 Estim Creat Clear Calc 100.4 Estimated GFR > 60 Random Vancomycin 15.6 Microbiology Microbiology Results: Microbiology 04/03/23 18:56 Blood Culture - Final Blood - Venous Coag negative Staphylococcus 04/03/23 19:43 Blood Culture - Preliminary Blood - Venous No growth after 48 hours. Assessment and Plan (1) Chest pain: Status: Acute (2) Cellulitis of left leg: Status: Acute Plan 67 year old male with history of CAD s/p PCI, LBBB, unstable angina, NICM, HFrEF, htn, gout, PUD, hx partial gastrectomy admitted for management of purulent cellulitis, unstable angina, and chf exacerbation # Gram-positive bacteremia/ Acute cellulitis LLE- background chronic venous stasis dermatitis with venous ulcers - blood culture final report showed coagulase negative staph unlikely pathogen, cellulitis improved, no fevers, normal WBC count -on IV vanco (initiated 04/03),No leukocytosis, no sepsis, will DC IV vanco, transition to by mouth doxycycline -wound care consult obtained follow recommendation # chest pain [place] to be typical concerning for unstable angina, negative troponins, EKG chronic left bundle branch block Reviewed records from [facility] patient has had multiple hospitalization for chest pain and syncope at [facility] last admission in December 2022 Patient recent repeat echo showed no changes had normal EF, no wall motion abnormality Last cardiac catheterization January 2022 showed patent LAD stent, and no significant coronary artery disease Seen by cardiology and underwent lexiscan MIBI stress test that is negative. continue aspirin 81mg daily, beta-blockers and statins LDL 34 # leg edema no evidence of acute CHF exacerbation (echo from [facility] November normal EF) recommend to keep legs elevated. Continue home dose of Lasix,Teds after cellulitis improves. #HTN -stable blood pressure, continue metoprolol,and losartan. #GERD/PUD -cont. ppi, carafate # BPH continue Flomax # History of gout continue allopurinol # chronic anemia stable follow CBC, nl iron studies in the past. DVT prophylaxis- lovenox subq Full code Pt requires inpt stay for IV antibiotics for extensive purulent cellulitis and for safe disposition. Quality Stroke Does the patient have a stroke diagnosis?: No VTE Prior VTE?: No VTE Risk Level:: Medical - moderate - high VTE Device Contraindication: Treatment Not Indicated VTE Drug Contraindication: N/A - Med Ordered
[2023-04-06] MEDS: allopurinoL 100 MG TABLET PO (17:17)
[2023-04-06] MEDS: Atorvastatin Calcium 80 MG TABLET PO (19:50)
[2023-04-07] MEDS: Doxycycline Monohydrate 100 MG CAPSULE PO ×2 (02:39→10:51)
[2023-04-07] MEDS: Acetaminophen 325 MG TABLET 650 MG PO (02:39)
[2023-04-07 03:27] VITALS: BP 121/54; PULSE 57; RESP 18; TEMP 36.8; O2SAT 96
[2023-04-07] MEDS: Omeprazole 40 MG CAPSULE.DR PO (05:20)
[2023-04-07 06:00] VITALS: BMI 30.6
[2023-04-07 07:10] VITALS: BP 132/61; PULSE 56; RESP 18; TEMP 36.2; O2SAT 99
[2023-04-07] MEDS: Metoprolol Succinate ER 25 MG TAB.ER.24H 75 MG PO (09:15)
[2023-04-07] MEDS: Losartan Potassium 25 MG TABLET PO (09:15)
[2023-04-07] MEDS: Aspirin Enteric Coated 81 MG TABLET.DR PO (09:15)
[2023-04-07] MEDS: Furosemide 40 MG TABLET PO (09:15)
[2023-04-07] MEDS: Tamsulosin HCL 0.4 MG CAPSULE PO (09:15)
[2023-04-07] MEDS: 0.9 % Sodium Chloride Flush 3 ML SYRINGE IVFLUSH (09:17)
[2023-04-07 10:15] LABS: Creatinine Clr Calc Pharmacy 99.1; Estimated Glomerular Filt Rate > 60
--- NOTE | 2023-04-07 10:31 | P.DS_ITS ---
DS: Providers Provider Date of Service: 04/07/23 Date of admission: 04/03/23 19:47 Primary care physician: Naseem Alford MD Consults: 04/03/23 19:52 Consult to Cardiology Routine Consulting Provider: [facility] Cardiovascular Services Reason for consultation: chest pain concerning for unstable angina 04/03/23 20:02 Consult to Wound Care Routine Reason for consultation: venous stasis ulcers 04/04/23 02:12 Consult to Wound Care Routine Reason for consultation: bilat lower leg cellulitis Has provider been notified: Yes DS: Diagnosis Discharge Diagnosis (1) Chest pain: Status: Acute (2) Cellulitis of left leg: Status: Acute DS: Summary Hospital Course Hospital Course: History of presenting illness: Date of Service: 04/03/23 Attending physician on admission: Lidia Valentino Chief Complaint: chest pain, hernandez 67 year old male with history of CAD s/p PCI, LBBB, unstable angina, NICM, HFrEF, htn, gout, PUD, hx partial gastrectomy presented to the ED via EMS for evaluation of hernandez and chest pain. Reports he has been having intermittent episodes of retrosternal crushing 10/10 chest pain with radiation to the left shoulder and jaw with associated dyspnea both at rest and with exertion over the last few weeks. Lasts for about 10-15 minutes before resolving spontaneously. Has also had occassional dry cough. He is homeless and denies known sick contacts. No fevers, chills, sore throat, congestion, abd pain, n/v/d, urinary symptoms, orthopnea, lightheadedness, palpitations, or syncope. He also has chronic wounds to the BLE with increased edema. States wounds have been weeping and drenching his socks. Feels he has gained significant weight, estimates 53 pounds . On review of chart, appears to have have 10 pound weight gain since 03/24. No history of illicit drug use, not a smoker, remote hx of alcohol use. On arrival, vitals stable, though low grade fever on admission with temp 100.2. No leukocytosis. Renal function, electrolytes normal. Lactic acid 1.9. Initial trop 9.0, repeat 12.0. BNP 84. UA unremarkable. CXR negative for any acute cardiopulmonary abnormality. Venous duplex negative for DVT. In the ED, has been given 2g cefazolin, and was initially started on IVF which were stopped and given 40mg IV lasix. Hospital course: 67 year old male with history of CAD s/p PCI, LBBB, unstable angina, NICM, HFrEF, htn, gout, PUD, hx partial gastrectomy admitted for management of purulent cellulitis, chest pain and chf exacerbation # Acute cellulitis LLE admitted to medical floor treated with IV vancomycin, patient had normal WBC, no evidence of sepsis, blood cultures 1/2 was positive for nonpathogenic coagulase-negative Staphylococcus, redness swelling of lower extremities improved patient is being discharged home on doxycycline 1 tablet twice daily for total 7 day treatment patient was evaluated by wound care for bilateral venous stasis dermatitis follow wound instructions recommend to keep leg elevated while in bed and sitting. -wound care consult obtained follow recommendation # Chest pain due to typical anginal symptoms initially felt to have unstable angina but patient noted to have normal troponins, EKG showed chronic left bundle branch block records from [facility] showed the patient has had multiple hospitalization for chest pain and syncope last admission in December 2022, echo showed normal EF and no wall motion abnormality, cardiac catheterization January 2022 showed patent LAD stent, and no significant coronary artery disease, patient evaluated by hyperbaric technician and underwent lexiscan MIBI stress test that is negative on 04/06/23 , will continue aspirin 81mg daily, beta- blockers and statins ,LDL 34. #Leg edema initially felt to have mild acute CHF treated with 1 dose of IV Lasix in ED,echo from [facility] November normal EF , recommend to keep legs elevated. Continue home dose of Lasix. #HTN -stable blood pressure, continue metoprolol,and losartan. #GERD/PUD -cont. ppi and carafate # BPH continue Flomax # History of gout continue allopurinol # chronic anemia stable follow CBC, nl iron studies in the past. Time Attestation Discharge coordination time: Greater than 30 minutes Quality: Safe Use of Opioids Does Pt have an Active Cancer Diagnosis on the Problem List?: No Quality: Stroke Does the patient have a stroke diagnosis?: No Physical Exam Vital Signs: Vital Signs: Last Vital Signs Temp 97.2 F 04/07/23 07:10 Pulse 56 04/07/23 07:10 Resp 18 04/07/23 07:10 BP 132/61 04/07/23 07:10 Pulse Ox 99 04/07/23 07:10 O2 Del Method Room Air 04/07/23 07:10 BMI result Body Mass Index 30.6 Const: Other: Gen: Resting comfortably in bed, in no acute distress HEENT: sclera anicteric, moist mucus membranes Neck: supple, no JVD Lungs: clear to auscultation bilaterally Heart: regular rate and rhythm Abd: soft, non-tender, non-distended Ext: mild edema lower extremity, dry scaly skin, shallow venous ulcer, mild erythema left lower leg improving, no warmth, no drainage, left calf shallow ulcer Skin: warm/well-perfused Neuro: alert and oriented x3, no focal findings Psych: appropriate affect DS: Data Data Completed and Pending Completed studies during hospitalization [Text1]: Procedures Drainage of Bilateral Lungs, Via Natural or Artificial Opening, Diagnostic (01/19/22) Extirpation of Matter from Left Main Bronchus, Via Natural or Artificial Opening Endoscopic (01/19/22) Extirpation of Matter from Right Main Bronchus, Via Natural or Artificial Opening Endoscopic (01/19/22) Insertion of Endotracheal Airway into Trachea, Via Natural or Artificial Opening (01/19/22) Respiratory Ventilation, 24-96 Consecutive Hours (01/19/22) Labs on day of discharge: Laboratory Results - last 24 hr 04/07/23 09:33 Creatinine 0.82 Estim Creat Clear Calc 99.1 Estimated GFR > 60 Random Vancomycin 9.0 L Preliminary micro results at discharge 04/03/23 19:43 Blood Culture - Preliminary Blood - Venous No growth after 48 hours. Discharge Plan Discharge Anticipated Discharge Date/Time: 04/07/23 10:27 Patient Disposition: [facility] Discharge Diagnosis: Noncardiac chest pain Left lower extremity cellulitis Bilateral lower extremity edema Referrals: [facility] [Outside] - 1 Week Naseem Alford MD [Primary Care Provider] - 1 Week Discharge Medications: New doxycycline monohydrate 100 mg Capsule 100 mg PO Q12H Qty: 6 0RF Continued fluticasone propionate 50 mcg/actuation [place],Suspension 1 spray INTRANASAL DAILY PRN (Reason: Allergy Symptoms) Rx Instructions: administer into each nostril allopurinol 100 mg Tablet 100 mg PO DAILY@1700 losartan 25 mg Tablet 25 mg PO DAILY@0800 isosorbide mononitrate 30 mg Tablet Extended Release 24 Hr 30 mg PO DAILY@0800 metoprolol succinate 50 mg Tablet Extended Release 24 Hr 50 mg PO DAILY atorvastatin 80 mg tablet 80 mg PO BEDTIME aspirin 81 mg tablet,delayed release (DR/EC) 81 mg PO DAILY furosemide 20 mg tablet 40 mg PO DAILY metoprolol succinate 25 mg tablet extended release 24 hr 25 mg PO DAILY omeprazole 40 mg capsule,delayed release(DR/EC) 40 mg PO BID tamsulosin 0.4 mg capsule 0.4 mg PO DAILY finasteride 5 mg tablet 5 mg PO DAILY Discharge Orders: Discharge Order (Routine); Ordered 04/07/23 Ordered By: Kimberly Nieto Diet: Low fat, low cholesterol Activity on Discharge: As tolerated Stand Alone Forms: Patient Portal Discharge page Care Plan Goals: Bilateral Lower Legs Etiology: ??Venous Dermatitis Wound Bed: scattered areas of partial thickness tissue loss with dried wound bed Drainage / Odor: serous drainage noted on dressing at time of removal Edges: ? Irregular and attached Geri wound: pink erythema - ?No Induration, Fluctuance or Warmth noted Pain: Pain and tenderness reported Goals of Treatment: ? Moist wound healing with xeroform Recommendations: 1. Bilateral Lower Legs - Elevate lower legs off of surface of bed with use of pillows.? Cleanse with NS, Pat dry.? Apply vaseline to both legs, apply layer of xeroform to open wound beds secure with ABD pad, gauze wrap and tape.? Change Daily. Chest pain recurrent chronic workup for acute coronary syndrome negative Continue all home medications as before Keep legs elevated while sitting and in bed. Take 3 more days of by mouth antibiotic doxycycline Atypical chest pain cardiac workup negative Health Concerns: Continue all home medications as before Plan of Treatment: Outpatient follow-up with primary care physician Assessment: As above
[2023-04-07] MEDS: Enoxaparin Sodium 40 MG/0.4 ML SYRINGE SUBCUT (10:51)
== END 2023-04-07 11:08 | disposition skilled nursing facility (03) | DRG 602 ==
LOC: HO.ED 21:46 → HO.EDOVER 23:01 → HO.IMC 04-04 00:21
PROVIDERS: Physician Assistant Medical; Student in an Organized Health Care Education/Training Program; Admitting Provider Physician Assistant; Emergency Provider Emergency Medicine Emergency Medical Services; PCP Internal Medicine; Visit Provider Hospitalist
DX: L03.116 Cellulitis of left lower limb (principal); I11.0 Hypertensive heart disease with heart failure; I50.23 Acute on chronic systolic (congestive) heart failure; I42.8 Other cardiomyopathies; Z59.02 Unsheltered homelessness; I87.313 Chronic venous hypertension (idiopathic) with ulcer of bilateral lower extremity; L97.829 Non-pressure chronic ulcer of other part of left lower leg with unspecified severity; L97.819 Non-pressure chronic ulcer of other part of right lower leg with unspecified severity; I25.10 Atherosclerotic heart disease of native coronary artery without angina pectoris; D64.9 Anemia, unspecified; I44.7 Left bundle-branch block, unspecified; N40.0 Benign prostatic hyperplasia without lower urinary tract symptoms; M10.9 Gout, unspecified; E78.5 Hyperlipidemia, unspecified; K21.9 Gastro-esophageal reflux disease without esophagitis; Z20.822 Contact with and (suspected) exposure to COVID-19; Z95.5 Presence of coronary angioplasty implant and graft; Z79.82 Long term (current) use of aspirin; Z79.899 Other long term (current) drug therapy
CPT/HCPCS: 36415; 71045; 78452; 80048; 80053; 80061; 80202; 81001; 82565; 83605; 83880; 84484; 85025; 85610; 85730; 87040; 87147; 87205; 87633; 93005; 93017; 93970; 97162; 97530; 99285; A9500; J0280; J0690; J1644; J1650; J1940; J2785; J3370; J3371

== ENCOUNTER → 2023-04-03 10:50 | Outpatient (BNV) | payer MEDICARE, MEDICAID, SELFPAY | PROVIDERS: Emergency Provider Emergency Medicine Emergency Medical Services; PCP Internal Medicine; Visit Provider Physician Assistant | DX: L03.116 Cellulitis of left lower limb (principal); R07.9 Chest pain, unspecified | CPT/HCPCS: 99223; 99233; 99239 ==

== ENCOUNTER 2023-04-03 19:47 | Outpatient (BNV) | payer MEDICARE, MEDICAID, SELFPAY | END 2023-04-05 10:45 | PROVIDERS: Admitting Provider Physician Assistant; Emergency Provider Emergency Medicine Emergency Medical Services; PCP Internal Medicine; Visit Provider Nurse Practitioner | DX: R07.9 Chest pain, unspecified (principal); R94.31 Abnormal electrocardiogram [ECG] [EKG] | CPT/HCPCS: 78452; 93010; 93016; 93018 ==

== ENCOUNTER → 2023-04-03 19:47 | Outpatient (BNV) | payer MEDICARE, MEDICAID, SELFPAY | PROVIDERS: Admitting Provider Physician Assistant; Emergency Provider Emergency Medicine Emergency Medical Services; PCP Internal Medicine; Visit Provider Internal Medicine Cardiovascular Disease | DX: I20.0 Unstable angina (principal); R94.31 Abnormal electrocardiogram [ECG] [EKG]; I44.7 Left bundle-branch block, unspecified | CPT/HCPCS: 93010; 99222; 99233 ==

== ENCOUNTER 2023-11-02 13:50 | Outpatient (REF) | payer MEDICARE, MEDICAID, SELFPAY ==
[2023-11-02 14:39] LABS: MANUAL DIFF FLAG NO
[2023-11-02 16:04] LABS: Basophils Absolute Auto 0.1 X10*3/uL (0.0-0.2); Basophils Percent Auto 0.9 % (0-2); Eosinophils Absolute Auto 0.2 X10*3/uL (0.0-0.4); Eosinophils Percent Auto 4.2 % (0-4); Hematocrit 31.3 % (42.0-52.0); Hemoglobin 10.2 g/dl (14.0-18.0); Imm Gran Abs Auto 0.01 X10*3/uL (0.00-0.03); Imm Gran Pct Auto 0.2 % (0.0-0.4); Lymphocytes Absolute Auto 1.6 X10*3/uL (1.2-4.9); Mean Corpuscular HGB Conc 32.6 g/dl (31.0-36.0); Mean Corpuscular Hemoglobin 30.5 pg (27.0-33.0); Mean Corpuscular Volume 93.7 fL (80.0-98.0); Mean Platelet Volume 10.4 fL (9.4-12.4); Monocytes Absolute Auto 0.5 X10*3/uL (0.1-1.2); Monocytes Percent Auto 9.3 % (2-11); Neutrophils Absolute Auto 3.3 x10*3/uL (2.0-8.3); Neutrophils Percent Auto 57.4 % (45-73); Platelet Count 259 X10*3/uL (160-400); Red Blood Count 3.34 X10*6/uL (4.60-5.80); Red Cell Distribution Width 14.7 % (11.0-16.0); White Blood Count 5.7 X10*3/uL (4.8-10.8)
[2023-11-02 17:10] LABS: Alanine Aminotransferase 18 U/L (0-40); Albumin Level 4.3 g/dL (3.5-5.0); Alkaline Phosphatase 105 U/L (39-117); Anion Gap 14 (12-20); Aspartate Amino Transferase 22 U/L (5-37); Bilirubin Total 0.7 mg/dL (0.0-1.0); Blood Urea Nitrogen 28 mg/dL (9-16); Calcium 9.8 mg/dL (8.4-10.2); Carbon Dioxide 24 mmol/L (22-29); Chloride 109 mmol/L (96-108); Estimated Glomerular Filt Rate > 60; Glucose Random 83 mg/dL (60-115); Sodium 143 mmol/L (135-145); Total Protein 7.1 g/dL (6.5-8.0); Uric Acid 5.2 mg/dL (3.4-7.0)
== END 2023-11-02 13:51 | disposition home or self-care (01) ==
LOC: HO.LAB 13:50
PROVIDERS: PCP Internal Medicine; Visit Provider Internal Medicine
DX: I25.10 Atherosclerotic heart disease of native coronary artery without angina pectoris (principal); I10 Essential (primary) hypertension; G62.9 Polyneuropathy, unspecified; M10.9 Gout, unspecified
CPT/HCPCS: 36415; 80053; 84550; 85025

== ENCOUNTER 2024-06-15 13:42 | Outpatient (AMB) | payer MEDICARE, MEDICAID, SELFPAY ==
--- NOTE | 2024-06-15 13:44 | MHC.PC.OV ---
Vital Signs 06/15/24 13:47 Height 5 ft 10 in Weight 194 lb BMI 27.8 BP 122/70 Respiration 16 Pulse 70 Pulse Source Pulse Oximeter Temp 97.8 F Temp Source Temporal Artery Scan Pulse Oximetry (%) 98 Oxygen Delivery Method Room Air Intake Visit Reasons: Routine - see comments Ticket Sales Supervisor Required: No Accompanied by: Self / Same As Patient Allergies polyethylene glycol Allergy (Verified 06/15/24 13:44) Itching polyethylene glycol 3350 [From Miralax] Allergy (Verified 06/15/24 13:44) Itching Tobacco use date assessed: 06/15/24 Fall risk assessment: 1 Fall in past year Last assessed Fall Risk: 06/15/24 Dental Screening Dental Screen Date: 06/15/24 Did you have a dental visit in the last 12 months?: No Did you have a dental problem in the last 6 months where you did not have access to dental care?: No Was dental information given to patient?: Patient has dentist HPI HPI Comments History of Present Illness Details The patient is a 69 year old male with a past medical history CAD s/p LAD, LBBB, CM, htn, hld, depression, PVD, GERD presenting for follow up. Last seen by pcp in March Hospitalized at [facility] for chest pain 06/07/2024. ACS rule out. CV: On imdur, losartan, topol, lasix, atorvastatin. BP fluctuates. Sees cardiology. Says seen last month GI: history of esophageal dilation. Has an appt with gastroenterology in July. patient was noted to be anemic in ER and will have follow up labs before his 4 month appt ROS CONSTITUTIONAL: Denies weight loss, fever and chills. HEENT: Denies changes in vision and hearing. RESPIRATORY: Denies SOB and cough. CV: Denies palpitations and CP GI: Denies abdominal pain, nausea, vomiting and diarrhea. : Denies dysuria and urinary frequency. MSK: Denies new myalgia and joint pain. SKIN: Denies rash and pruritus. NEUROLOGICAL: Denies headache PSYCHIATRIC: Denies recent changes in mood. PHYSICAL EXAM: GENERAL: Alert and oriented x 3. NAD EYES: EOMI. Anicteric. HENT: Moist mucous membranes. No scleral icterus. No cervical lymphadenopathy. LUNGS: Clear to auscultation bilaterally. CARDIOVASCULAR: Regular rate and rhythm. No murmur. No JVD. ABDOMEN: Soft, non-tender +bs EXTREMITIES: No edema. Non-tender. SKIN: No rashes or lesions. Warm. NEUROLOGIC: No focal neurological deficits. CN II-XII grossly intact PSYCHIATRIC: Cooperative. Appropriate mood and affect [facility] Medical History CHF (congestive heart failure) Syncope Atypical chest pain COVID-19 Ischemic heart disease due to coronary artery obstruction Left bundle branch block Airway polyps NICM (nonischemic cardiomyopathy) Chest pain Incarcerated left inguinal hernia Hypertension Gout Peptic ulcer disease Left bundle branch block Coronary artery disease No known health problems Surgical History History of partial gastrectomy H/O heart artery stent Family History Father Myocardial infarction Social History Household Members: None Household Members Other:: with friends, staying with friends Housing: Assisted Living Facility Housing Other:: [facility] home Do you presently have visiting nurse or other home services: No Alcohol intake: current Alcohol intake frequency: does not drink Patient Tobacco Use Status: Never used Tobacco Second Hand Smoke Exposure: Yes (friends he stays with smoke outside) Advance Directives Date on File: 05/20/22 service: No Current occupational status: unemployed Cognitive needs: No Hearing needs: No Vision needs: No Questionnaire PHQ-9 Over the last 2 weeks, how often have you been bothered by any of the following problems? 1. Little interest or pleasure in doing things: not at all 2. Feeling down, depressed, or hopeless: not at all 3. Trouble falling or staying asleep, or sleeping too much: not at all 4. Feeling tired or having little energy: not at all 5. Poor appetite or overeating: not at all 6. Feeling bad about yourself - or that you are a failure or have let yourself or your family down: not at all 7. Trouble concentrating on things, such as reading the newspaper or watching television: not at all 8. Moving or speaking so slowly that other people could have noticed. Or the opposite - being so fidgety or restless that you have been moving around a lot more than usual: not at all 9. Thoughts that you would be better off or of hurting yourself in some way: not at all Total score: 0 Depression Screening Interpretation: Negative Depression Screening Done: Yes 38294 - PHQ-9 Billing: Yes Source: Developed by Drs. Daniel Mendez, Racheal Estrada, Faisal Garcia and colleagues, with an educational pepe from [employer]. Thrive Questionnaire Date Thrive assessed: 06/15/24 AUDIT C Alcohol Use Questionnaire (AUDIT-C) 1. How often do you have a drink containing alcohol?: Never 3. How often do you have six or more drinks on one occasion?: Never Total Score: 0 CLAUDE-7 AMB Questionnaire CLAUDE-7 Date CLAUDE - 7 assessed: 06/15/24 Feeling nervous, anxious, or on edge: 0 = Not at all Not being able to stop or control worryin = Not at all Worrying too much about different things: 0 = Not at all Trouble relaxin = Not at all Being so restless that it is hard to sit still: 0 = Not at all Becoming easily annoyed or irritable: 0 = Not at all Feeling afraid as if something awful might happen: 0 = Not at all Total CLAUDE-7 score (0-4 normal; 5-9 mild; 10-14 moderate; 15-21 severe): 0 Source: Developed by Drs. Daniel Mendez, Racheal Estrada, Faisal Garcia and colleagues, with an educational pepe from [employer]. Physical exam (Primary Care) Vital Signs: Last Vital Signs Temp 97.8 F 06/15/24 13:47 Pulse 70 06/15/24 13:47 Resp 16 06/15/24 13:47 BP 122/70 06/15/24 13:47 Pulse Ox 98 06/15/24 13:47 Oxygen Delivery Method Room Air 06/15/24 13:47 BMI result Body Mass Index 27.8 Tobacco/Smoking Status: Tobacco use Status Tobacco use date assessed 06/15/24 06/15/24 13:46 Patient Tobacco Use Status Never used Tobacco 06/15/24 13:46 PHQ-9: PHQ-9 Score PHQ-9: Total score 0 06/15/24 13:46 Depression Screening Interpretation: Negative Thrive Assessment: Date of Thrive Assessment Date Thrive assessed 06/15/24 06/15/24 13:46 Coding Level of Care Code New Pt Level 4 (79586) Diagnoses Primary hypertension I10 Hypertension type: primary hypertension NICM (nonischemic cardiomyopathy) I42.8 Gastroesophageal reflux disease, unspecified whether esophagitis present K21.9 Esophagitis presence: esophagitis presence not specified Additional Codes PHQ-9 - 19526 - PHQ-9 Billing: Yes ([id number]) Assessment & Plan Assessment & Plan (1) Hypertension: Code(s): I10 - Essential (primary) hypertension Category: Medical Qualifiers: Hypertension type: primary hypertension Qualified Code(s): I10 - Essential (primary) hypertension (2) NICM (nonischemic cardiomyopathy): Code(s): I42.8 - Other cardiomyopathies Category: Medical (3) GERD (gastroesophageal reflux disease): Code(s): K21.9 - Gastro-esophageal reflux disease without esophagitis Category: Medical Qualifiers: Esophagitis presence: esophagitis presence not specified Qualified Code(s): K21.9 - Gastro-esophageal reflux disease without esophagitis Plan 69 year old to establish care past medical, surgical social reviewed ER visit reviewed. meds reconciled Return in 4 months for BP check, anemia check Orders: Orders Comprehensive Met. Panel 4 Months I42.8 - Other cardiomyopathies Lipid Panel 4 Months I42.8 - Other cardiomyopathies Complete Blood Count Auto Diff 4 Months I42.8 - Other cardiomyopathies Prostate Specific Antigen 4 Months I42.8 - Other cardiomyopathies Medications: New isosorbide mononitrate ER 60 mg PO DAILY 90 tabs 3RF
[2024-06-15 13:47] VITALS: BP 122/70; PULSE 70; RESP 16; TEMP 36.6; O2SAT 98; BMI 27.8
== END 2024-06-15 14:11 | disposition home or self-care (01) ==
LOC: HO.HMCHD 13:42
PROVIDERS: PCP Internal Medicine; Visit Provider Internal Medicine
DX: I10 Essential (primary) hypertension (principal); I42.8 Other cardiomyopathies; K21.9 Gastro-esophageal reflux disease without esophagitis

== ENCOUNTER → 2024-06-15 13:42 | Outpatient (BNVA) | payer MEDICARE, MEDICAID, SELFPAY | PROVIDERS: PCP Internal Medicine; Visit Provider Internal Medicine | DX: I25.10 Atherosclerotic heart disease of native coronary artery without angina pectoris (principal); I44.7 Left bundle-branch block, unspecified; I10 Essential (primary) hypertension; E78.5 Hyperlipidemia, unspecified; K21.9 Gastro-esophageal reflux disease without esophagitis; I42.8 Other cardiomyopathies | CPT/HCPCS: 96127; 99202 ==

== ENCOUNTER 2024-08-04 11:08 | Outpatient (AMB) | payer MEDICARE, MEDICAID, SELFPAY ==
[2024-08-04 10:57] VITALS: BP 108/62; PULSE 67; RESP 14; TEMP 36.3; O2SAT 97; BMI 27.7
--- NOTE | 2024-08-04 10:57 | A.OFFPC_ITS ---
Vital Signs 08/04/24 10:57 Height 5 ft 10 in Weight 87.543 kg BMI 27.7 BP 108/62 Respiration 14 Pulse 67 Pulse Source Pulse Oximeter Temp 97.3 F Temp Source Temporal Artery Scan Pulse Oximetry (%) 97 Oxygen Delivery Method Room Air Intake Visit Reasons: Hospital F/U Drawer In [place] [place] Required: No Accompanied by: Self / Same As Patient Allergies polyethylene glycol Allergy (Verified 08/04/24 11:18) Itching polyethylene glycol 3350 [From Miralax] Allergy (Verified 08/04/24 11:18) Itching Tobacco use date assessed: 08/04/24 Fall risk assessment: No Falls in past year Last assessed Fall Risk: 08/04/24 Dental Screening Dental Screen Date: 08/04/24 Did you have a dental visit in the last 12 months?: Yes Did you have a dental problem in the last 6 months where you did not have access to dental care?: No HPI HPI Comments History of Present Illness Details 69-year-old male with history of heart f ailure, anemia, BPH, CAD s/p PCI, gout, hypertension, hyperlipidemia, left bundle branch block presents to the office today for post ED follow-up. He presented to [facility] ED on 07/24 when he woke up abruptly in the middle of the night with symptoms of crushing chest pain radiating to the left jaw and down the left arm with associated dyspnea. He has had prior episodes in the past for which she has been hospitalized for. Reports that pain had felt similar to episodes in the past. He denied any recent illnesses, lower extremity edema. No palpitations. Denies any recent travel. He has had DVT studies in the past which were negative. He did have myocardial perfusion study in 04/24 without any clear evidence of ischemia or infarction with normal myocardial perfusion. In the ED, EKG showed sinus bradycardia with no left bundle branch block without any acute ischemic changes. Prior T-wave abnormality in inferior leads was no longer seen. Chest x-ray negative for any acute cardiopulmonary abnormality. He was negative for COVID-19. Renal function and electrolyte levels within normal limits. AST 204, ALT 85, alkaline phosphatase 140. Hematology studies show a stable normocytic anemia. RUQ ultrasound showed normal liver and gallbladder with mild biliary tract dilatation. He is able to ambulate long distances without developing any chest pain. He reports he has undergone sleep study without any definitive RANDA. He does have follow-up with Gastroenterology for barium swallow. In the ED, question of gastric etiology and pantoprazole was increased. He does follow with Cardiology at [facility]. Denies alcohol intake or tylenol overuse. Has been on statin snf without any elevation of liver enzymes ROS: General: No fevers, malaise, unintentional weight loss HEENT: No blurred vision, diplopia. No sore throat, nasal congestion, rhinorrhea, sinus pain, ear pain Cardiovascular: No chest pain, palpitations, or leg edema Respiratory: No shortness of breath, wheezing, cough GI: No abdominal pain, nausea, vomiting, diarrhea, constipation, melena, hematochezia : No dysuria, hematuria, increased urinary frequency, decreased urinary output MSK: No myalgia, back pain Neuro: No headaches, weakness, paresthesias Skin: No rashes or lesions EXAM: Constitutional - Awake and Alert, No apparent distress Eyes - PERRLA, EOMI Cardiovascular - S1S2, RRR, No edema Respiratory - Normal lung expansion, Normal respiratory effort, No respiratory distress, CTA bilaterally Skin - Warm/Dry Neurological - Alert & oriented x3 Psychological - Appropriate affect [facility] Medical History (Updated 08/04/24 @ 12:21 by FRANCO Barber) Chest pain CHF (congestive heart failure) Syncope Atypical chest pain COVID-19 Ischemic heart disease due to coronary artery obstruction Left bundle branch block Airway polyps NICM (nonischemic cardiomyopathy) Incarcerated left inguinal hernia Hypertension Gout Peptic ulcer disease Left bundle branch block Coronary artery disease No known health problems Surgical History History of partial gastrectomy H/O heart artery stent Family History Father Myocardial infarction Social History Household Members: None Household Members Other:: with friends, staying with friends Housing: Assisted Living Facility Housing Other:: [facility] home Do you presently have visiting nurse or other home services: No Alcohol intake: current Alcohol intake frequency: does not drink Patient Tobacco Use Status: Never used Tobacco e-Cigarette/Vaping Use: Never Used Second Hand Smoke Exposure: Yes (friends he stays with smoke outside) Advance Directives Date on File: 05/20/22 service: No Current occupational status: unemployed Cognitive needs: No Hearing needs: No Vision needs: No Questionnaire PHQ-9 Over the last 2 weeks, how often have you been bothered by any of the following problems? 1. Little interest or pleasure in doing things: not at all 2. Feeling down, depressed, or hopeless: not at all 3. Trouble falling or staying asleep, or sleeping too much: not at all 4. Feeling tired or having little energy: not at all 5. Poor appetite or overeating: not at all 6. Feeling bad about yourself - or that you are a failure or have let yourself or your family down: not at all 7. Trouble concentrating on things, such as reading the newspaper or watching television: not at all 8. Moving or speaking so slowly that other people could have noticed. Or the opposite - being so fidgety or restless that you have been moving around a lot more than usual: not at all 9. Thoughts that you would be better off or of hurting yourself in some way: not at all Total score: 0 Source: Developed by Drs. Daniel Mendez, Racheal Estrada, Faisal Garcia and colleagues, with an educational pepe from [employer]. Thrive Questionnaire Date Thrive assessed: 08/04/24 I am a: Patient Within the past 12 months, did the food you bought not last and you didn't have the money to get more?: Never true Within the past 12 months, did you worry whether your food would run out before you got money to buy more?: Never true Do you have trouble paying for medicines?: No Do you have trouble getting transportation to medical appointments?: No Do you have trouble paying your heating and electricity bill?: No Do you have trouble taking care of your child, family member or friend?: No Do you have trouble with day-to-day activities such as bathing, preparing meals, shopping, managing finances, etc.?: No Are you currently unemployed and looking for a job?: No Are you interested in more education?: No THRIVE Score: 0 AUDIT C Alcohol Use Questionnaire (AUDIT-C) 1. How often do you have a drink containing alcohol?: Never 3. How often do you have six or more drinks on one occasion?: Never Total Score: 0 CLAUDE-7 AMB Questionnaire CLAUDE-7 Date CLAUDE - 7 assessed: 08/04/24 Feeling nervous, anxious, or on edge: 0 = Not at all Not being able to stop or control worryin = Not at all Worrying too much about different things: 0 = Not at all Trouble relaxin = Not at all Being so restless that it is hard to sit still: 0 = Not at all Becoming easily annoyed or irritable: 0 = Not at all Feeling afraid as if something awful might happen: 0 = Not at all Total CLAUDE-7 score (0-4 normal; 5-9 mild; 10-14 moderate; 15-21 severe): 0 Source: Developed by Drs. Daniel Mendez, Racheal Estrada, Faisal Garcia and colleagues, with an educational pepe from [employer]. Physical exam (Primary Care) Vital Signs: Last Vital Signs Temp 97.3 F 08/04/24 10:57 Pulse 67 08/04/24 10:57 Resp 14 08/04/24 10:57 BP 108/62 08/04/24 10:57 Pulse Ox 97 08/04/24 10:57 Oxygen Delivery Method Room Air 08/04/24 10:57 BMI result Body Mass Index 27.7 Tobacco/Smoking Status: Tobacco use Status Tobacco use date assessed 08/04/24 08/04/24 10:59 Patient Tobacco Use Status Never used Tobacco 08/04/24 10:59 e-Cigarette/Vaping Use Never Used 08/04/24 10:59 PHQ-9: PHQ-9 Score PHQ-9: Total score 0 08/04/24 11:24 Thrive Assessment: Date of Thrive Assessment Date Thrive assessed 08/04/24 08/04/24 10:59 Coding Level of Care Code Est Pt Level 4 (88132) Complex EM visit Add On G2211 Diagnoses Chest pain R07.9 Elevated liver enzymes R74.8 Gastroesophageal reflux disease, unspecified whether esophagitis present K21.9 Esophagitis presence: esophagitis presence not specified Assessment & Plan Assessment & Plan (1) Chest pain: Code(s): R07.9 - Chest pain, unspecified Category: Medical Plan: Etiology unclear. Possible stable angina, possibly gastric in etiology. Continue ASA, statin, beta-humaira, isosorbide. Follow-up with Cardiology. Continue increased dose of pantoprazole and follow-up with Gastroenterology as well as barium swallow as scheduled (2) Elevated liver enzymes: Code(s): R74.8 - Abnormal levels of other serum enzymes Category: Medical Plan: Etiology unclear. Question possible viral etiology versus tick-borne. Tick panel ordered as well as liver panel (3) GERD (gastroesophageal reflux disease): Code(s): K21.9 - Gastro-esophageal reflux disease without esophagitis Category: Medical Qualifiers: Esophagitis presence: esophagitis presence not specified Qualified Code(s): K21.9 - Gastro-esophageal reflux disease without esophagitis Plan: Follow-up with gastroenterology and undergo barium swallow as ordered. Continue with increased dose of pantoprazole Plan Follow-up in the office as scheduled. Labs to be completed as below. ED provider note reviewed as well as EKG report, chest x-ray, and labs. Orders: Orders Liver Panel Today R74.8 - Abnormal levels of other serum enzymes Tick-borne Disease Molecular Today R07.9 - Chest pain, unspecified, R74.8 - Abnormal levels of other serum enzymes
== END 2024-08-04 11:57 | disposition home or self-care (01) ==
LOC: HO.HMCHD 11:08
PROVIDERS: PCP Internal Medicine; Visit Provider Physician Assistant
DX: R07.9 Chest pain, unspecified (principal); R74.8 Abnormal levels of other serum enzymes; K21.9 Gastro-esophageal reflux disease without esophagitis

== ENCOUNTER → 2024-08-04 11:08 | Outpatient (BNVA) | payer MEDICARE, MEDICAID, SELFPAY | PROVIDERS: PCP Internal Medicine; Visit Provider Physician Assistant | DX: N40.0 Benign prostatic hyperplasia without lower urinary tract symptoms (principal); I25.10 Atherosclerotic heart disease of native coronary artery without angina pectoris; I10 Essential (primary) hypertension; E78.5 Hyperlipidemia, unspecified; I44.7 Left bundle-branch block, unspecified; R07.9 Chest pain, unspecified; R74.8 Abnormal levels of other serum enzymes; K21.9 Gastro-esophageal reflux disease without esophagitis | CPT/HCPCS: 96127; 99212 ==

== ENCOUNTER 2024-09-05 11:10 | Outpatient (AMB) | payer MEDICARE, MEDICAID, SELFPAY ==
--- NOTE | 2024-09-05 11:10 | A.OFFPC_ITS ---
Vital Signs 09/05/24 11:16 09/05/24 11:18 09/05/24 11:18 Height 5 ft 10 in Weight 86.183 kg BP 112/62 Blood Pressure Location Lt brachial Position Sitting Respiration 16 Pulse 60 Pulse Source Pulse Oximeter Temp 97.3 F Temp Source Temporal Artery Scan Pulse Oximetry (%) 99 Oxygen Delivery Method Room Air Intake Visit Reasons: s/p ED 08/25 & 08/26 at [facility] Agricultural Inspector Required: No Accompanied by: Self / Same As Patient Allergies polyethylene glycol Allergy (Verified 09/05/24 11:11) Itching polyethylene glycol 3350 (From Miralax) Allergy (Verified 09/05/24 11:11) Itching Medication List - Last Reconciled 09/05/24 by FRANCO Barber acetaminophen 650 mg PO Q6H PRN allopurinol 100 mg PO DAILY@1700 aspirin 81 mg PO DAILY atorvastatin (Lipitor) 80 mg PO BEDTIME finasteride 5 mg PO DAILY fluticasone propionate 50 mcg/actuation 1 spray intranasal DAILY PRN furosemide 20 mg PO DAILY losartan 100 mg PO DAILY metoprolol succinate ER 50 mg PO DAILY nitroglycerin mg sublingual pantoprazole 40 mg PO DAILY sucralfate 1 g PO TID tamsulosin 0.4 mg PO DAILY Tobacco use date assessed: 08/04/24 Dental Screening Dental Screen Date: 08/04/24 HPI HPI Comments History of Present Illness Details 69-year-old male with history of heart f ailure, anemia, BPH, CAD s/p PCI with CAROLINE to LAD, gout, hypertension, hyperlipidemia, left bundle branch block presents to the office today for hospital discharge follow up. He presented to [facility] ED after experiencing chest pain similar to pain in the past. Described as crushing chest pain radiating to the left jaw and down the left arm with associated dyspnea. He has had prior episodes in the past for which he has been hospitalized for. he was observed overnight at [facility]. Trops were wnl and flat. EKG showed sinus bradycardia with known LBBB, rate 53, unchanged from priors. He did have eppisodes of bradycardia, lowest reported was 49. Advised to continue BB but with parameters. He was asymptomatic. He did have myocardial perfusion study in 04/24 without any clear evidence of ischemia or infarction with normal myocardial perfusion. Chest pain was likely thought to be chronic, non cardiac. He has had extensive ACS workup in the past which were unremarkable and he does follow with [facility]. It was thought that the chest pain may possibly be GI related. He does have upcoming appointment for barium swallow ordered however does not follow with Gastroenterology at this time. He was continued on all home medications with the exception of metoprolol as noted below. He was clinically euvolemic without any symptoms of congestive heart failure and should continue his furosemide as scheduled. Follow-up with cardiology as scheduled. ROS: General: No fevers, malaise, unintentional weight loss HEENT: No blurred vision, diplopia. No sore throat, nasal congestion, rhinorrhea, sinus pain, ear pain Cardiovascular: see hpi Respiratory: No shortness of breath, wheezing, cough GI: No abdominal pain, nausea, vomiting, diarrhea, constipation, melena, hematoc hezia : No dysuria, hematuria, increased urinary frequency, decreased urinary output MSK: No myalgia, back pain Neuro: No headaches, weakness, paresthesias Skin: No rashes or lesions EXAM: Constitutional - Awake and Alert, No apparent distress Eyes - PERRLA, EOMI Cardiovascular - S1S2, RRR, No edema Respiratory - Normal lung expansion, Normal respiratory effort, No respiratory distress, CTA bilaterally Skin - Warm/Dry Neurological - Alert & oriented x3 Psychological - Appropriate affect [facility] Medical History (Updated 09/05/24 @ 11:17 by FRANCO Barber) Atypical chest pain Chest pain CHF (congestive heart failure) Syncope COVID-19 Ischemic heart disease due to coronary artery obstruction Left bundle branch block Airway polyps NICM (nonischemic cardiomyopathy) Incarcerated left inguinal hernia Hypertension Gout Peptic ulcer disease Left bundle branch block Coronary artery disease No known health problems Surgical History History of partial gastrectomy H/O heart artery stent Family History Father Myocardial infarction Social History Household Members: None Household Members Other:: with friends, staying with friends Housing: Assisted Living Facility Housing Other:: [facility] home Do you presently have visiting nurse or other home services: No Alcohol intake: current Alcohol intake frequency: does not drink Patient Tobacco Use Status: Never used Tobacco e-Cigarette/Vaping Use: Never Used Second Hand Smoke Exposure: Yes (friends he stays with smoke outside) Advance Directives Date on File: 05/20/22 service: No Current occupational status: unemployed Cognitive needs: No Hearing needs: No Vision needs: No Questionnaire Thrive Questionnaire Date Thrive assessed: 08/04/24 CLAUDE-7 AMB Questionnaire CLAUDE-7 Date CLAUDE - 7 assessed: 08/04/24 Source: Developed by Drs. Daniel Mendez, Racheal Estrada, Faisal Garcia and colleagues, with an educational pepe from [employer]. Physical exam (Primary Care) Vital Signs: Last Vital Signs Temp 97.3 F 09/05/24 11:16 Pulse 60 09/05/24 11:16 Resp 16 09/05/24 11:18 BP 112/62 09/05/24 11:16 Pulse Ox 99 09/05/24 11:16 Oxygen Delivery Method Room Air 09/05/24 11:16 Tobacco/Smoking Status: Tobacco use Status Tobacco use date assessed 08/04/24 09/05/24 11:18 Patient Tobacco Use Status Never used Tobacco 09/05/24 11:18 e-Cigarette/Vaping Use Never Used 09/05/24 11:18 Thrive Assessment: Date of Thrive Assessment Date Thrive assessed 08/04/24 09/05/24 11:18 Coding Level of Care Code Est Pt Level 4 (69840) Complex EM visit Add On G2211 Diagnoses Chronic chest pain R07.9; G89.29 Primary hypertension I10 Hypertension type: primary hypertension NICM (nonischemic cardiomyopathy) I42.8 Assessment & Plan Assessment & Plan (1) Chronic chest pain: Code(s): R07.9 - Chest pain, unspecified; G89.29 - Other chronic pain Plan: Hospital discharge records reviewed. Discharge medications reconciled. Reviewed history and physical, EKG, chest x-ray, labs, discharge summary. Has recurrent episodes of chest pain with extensive cardiac workup that has been negative. Referred to Gastroenterology for workup on non cardiac etiologies chest pain. He does have barium swallow upcoming. He should continue PPI. Follow-up with cardiology as scheduled. Continue aspirin, statin, metoprolol as well as Imdur. (2) Hypertension: Code(s): I10 - Essential (primary) hypertension Category: Medical Qualifiers: Hypertension type: primary hypertension Qualified Code(s): I10 - Essential (primary) hypertension Plan: Controlled. Continue metoprolol, Imdur, losartan, Lasix. Parameters added to metoprolol. Low-sodium diet (3) NICM (nonischemic cardiomyopathy): Code(s): I42.8 - Other cardiomyopathies Category: Medical Plan: Reviewed last echocardiogram. Continue Lasix. Follow-up with Cardiology Plan Follow-up in the office next month as scheduled Orders: Referrals Gastroenterology Referral R07.89 - Other chest pain Gastroenterology Referral Z12.11 - Encounter for screening for malignant neoplasm of colon Medications: New finasteride 5 mg PO DAILY 90 tabs 0RF furosemide 20 mg PO DAILY 90 tabs 0RF losartan 100 mg PO DAILY 90 tabs 0RF metoprolol succinate ER hold for HR <60 50 mg PO DAILY 90 tabs 0RF isosorbide mononitrate ER 60 mg PO DAILY 90 tabs 1RF allopurinol 100 mg PO DAILY@1700 90 tabs 0RF atorvastatin (Lipitor) 80 mg PO BEDTIME 90 tabs 0RF aspirin 81 mg PO DAILY 90 tabs 0RF
[2024-09-05 11:16] VITALS: BP 112/62; PULSE 60; TEMP 36.3; O2SAT 99
[2024-09-05 11:18] VITALS: RESP 16
--- OUTSIDE RECORDS SUMMARY | 2024-09-05 12:15 | XMS_ITS ---
Author Organization [facility] Care Team Providers Care Ice Skater Name Role Phone Marilyn Boo Unavailable Unavailable Nathaly Retana Unavailable Unavailable Carmela Lamb Unavailable Unavailable Soarchie, Rocío Unavailable Unavailable Regina Caldera Unavailable Unavailable Elicia STERLING, Mavis Bhandari Unavailable Unavailable Claudia Arce Unavailable Unavailable Claudia Crawford Unavailable Unavailable Lorraine Posey Unavailable Unavailable Mary Sunshine Unavailable Unavailable Khloe Almeida Unavailable Unavailable Elton Young Unavailable Unavailable Allergies and adverse reactions No Known Allergies Care Team Name Role Address Phone Organization Dates Carmela Lamb PCP [address], [place], [address], [place] (Office): : [facility] 04/07/2023 - 08/16/2023 Marilyn Boo [address], [place], [address], [place] (Office): : [phone] [facility] 04/07/2023 - 08/16/2023 [place], [address], [facility] (Office): : [facility] 04/07/2023 - 08/16/2023 Rocío Blake [address], [place], [address], [facility] (Office): : [facility] 04/07/2023 - 08/16/2023 Regina Caldera [address], [place], [address], [facility] (Office): : [phone] [facility] 04/07/2023 - 08/16/2023 Mavis Rubi NP [address] [facility] [address], [facility] (Office): [facility] 04/07/2023 - 08/16/2023 Claudia Arce [address], [place], [address], [facility] (Office): : [facility] 04/07/2023 - 08/16/2023 Claudia Crawford MS, [facility] 04/07/2023 - 08/16/2023 Lorraine Posey MA, [facility] 04/07/2023 - 08/16/2023 Mary Sunshine [address], [place], [address], [facility] (Office): : [phone] [facility] 04/07/2023 - 08/16/2023 Khloe Almeida [address], [place], [address], [facility] (Office): : [phone] [facility] 04/07/2023 - 08/16/2023 Elton Young [address] [address], [place], [address], [place] (Office): : [facility] 04/07/2023 - 08/16/2023 Immunizations Immunization Status Vaccine Details Vaccine Code CodeSystem Amor e Notes Covid-19 completed SARS-COV-2 (COVID-19) vaccine, mRNA, spike protein, LNP, preservative free, aubrey-sucrose, 30 mcg/0.3 mL dose 309 CVX created date: 05/10/2023 administered date: 01/28/2023 Covid-19 completed SARS-COV-2 (COVID-19) vaccine, mRNA, spike protein, LNP, preservative free, aubrey-sucrose, 30 mcg/0.3 mL dose 309 CVX created date: 05/10/2023 administered date: 01/28/2023 Influenza, high dose seasonal cancelled Influenza, high-dose, split virus, trivalent, injectable, preservative free 135 CVX created date: 05/10/2023 consent date: 05/10/2023 Medications Section Medication Name Status Code CodeSystem Dose Route Frequency Admin Type Sig Text Start Date End Date Finasteride Oral Tablet 5 MG active 664262 RXNORM 5 mg Oral in the morning Routine Give 5 mg by mouth in the mornin g for BPH 2023 - Atorvastatin Calcium Oral Tablet 80 MG active 564521 RXNORM 80 mg Oral at bedtime Routine Give 80 mg by mouth at bedtim e for choles terol 2023 - Tamsulosin HCl Oral Capsule active 0.4 mg Oral at bedtime Routine Give 0.4 mg by mouth at bedtim e for prosta te 2023 - Allopurinol Oral Tablet 100 MG active 895484 RXNORM 100 mg Oral in the morning Routine Give 100 mg by mouth in the mornin g for gout 2023 - Omeprazole Oral Tablet Delayed Release active 40 mg Oral two times a day Routine Give 40 mg by mouth two times a day for gerd 2023 - Fluticasone Propionate Nasal Suspension 50 MCG/ACT active 5140695 RXNORM 1 spray Nasal as needed PRN 1 spray in both nostri ls every 24 hours as needed for allerg y sympto ms 2023 - Acetaminophen Tablet 650 MG active 498337 RXNORM 650 mg Oral as needed PRN Give 650 mg by mouth every 6 hours as needed for Pain Not to exceed 3GM/24 hours AND Give 650 mg by mouth every 6 hours as needed for elevat ed temp Not to exceed 3GM/24 hours 2023 - 306297 RXNORM 650 mg Oral as needed PRN Give 650 mg by mouth every 6 hours as needed for Pain Not to exceed 3GM/24 hours AND Give 650 mg by mouth every 6 hours as needed for elevat ed temp Not to exceed 3GM/24 hours 2023 - Fleet Enema Enema 7-19 GM/118ML active 857032 RXNORM 1 dose Rectal as needed PRN Insert 1 dose rectal ly as needed for Consti pation (Step 3) as needed if no bowel moveme nt for 8 hours after bisaco dyl suppos itory. 2023 - Milk of Magnesia Suspension 400 MG/5ML active 180371 RXNORM 30 ml Oral as needed PRN Give 30 ml by mouth as needed for Consti pation (Step 1) As needed if no bowel moveme nt for three days. (Do not use for Hemodi alysis patien ts). 2023 - Bisacodyl Suppository 10 MG active 792013 RXNORM 1 suppos itory Rectal as needed PRN Insert 1 suppos itory rectal ly as needed for If no bowel moveme nt for 8 hours after Milk of Magnes ia 2023 - Lac-Hydrin External Cream 12 % active 134063 RXNORM n/a n/a Topical two times a day Routine Apply to bilat feet topica lly two times a day for prurit is 2023 - Sucralfate Oral Tablet 1 GM active 169023 RXNORM 1 tablet Oral before meals Routine Give 1 tablet by mouth before meals for Ulcer AND Give 1 tablet by mouth at bedtim e for ulcer 2023 - 541767 RXNORM 1 tablet Oral at bedtime Routine Give 1 tablet by mouth before meals for Ulcer AND Give 1 tablet by mouth at bedtim e for ulcer 2023 - Isosorbide Mononitrate ER Oral Tablet Extended Release 24 Hour active 60 mg Oral in the morning Routine Give 60 mg by mouth in the mornin g for angina 2023 - Aspirin Oral Tablet 325 MG active 21190502 RXNORM 1 tablet Oral one time a day Routine Give 1 tablet by mouth one time a day for CAD 2023 - Lasix Oral Tablet 20 MG active RXNORM 1 tablet Oral one time a day Routine Give 1 tablet by mouth one time a day for CHF 2023 - Losartan Potassium Oral Tablet 50 MG active 249046 RXNORM 1 tablet Oral one time a day Routine Give 1 tablet by mouth one time a day for HTN 2023 - Metoprolol Succinate Oral Capsule ER 24 Hour Sprinkle 50 MG active 19980505 RXNORM 25 mg Oral one time a day Routine Give 25 mg by mouth one time a day for HTN 2023 - Mental Status Section Date Assessment Total Score Description 08/16/2023 BIMS 15 cognitively int act CAM 0 No delirium ind icated PHQ-9 00 07/08/2023 BIMS 15 cognitively int act CAM 0 No delirium ind icated PHQ-9 00 Problems Problem # Description Date of onset Resolved Date Code CodeSystem Concern Status 1 UNSPECIFIED LACK OF COORDINATION 08/11/[address] active 2 UNSPECIFIED OPEN WOUND, LEFT LOWER LEG, SUBSEQUENT ENCOUNTER 04/13/[address] active 3 UNSPECIFIED OPEN WOUND, RIGHT LOWER LEG, SUBSEQUENT ENCOUNTER 04/13/[address] active 4 ATHEROSCLEROTIC HEART DISEASE OF LUMMI CORONARY ARTERY WITHOUT ANGINA PECTORIS 04/07/[address] active 5 BENIGN PROSTATIC HYPERPLASIA WITHOUT LOWER URINARY TRACT SYMPTOMS 04/07/[address] active 6 CELLULITIS OF LEFT LOWER LIMB 04/07/[address] active 7 CHEST PAIN, UNSPECIFIED 04/07/[address] active 8 CHRONIC SYSTOLIC (CONGESTIVE) HEART FAILURE 04/07/[address] active 9 GASTRO-ESOPHAGEAL REFLUX DISEASE WITHOUT ESOPHAGITIS 04/07/[address] active 10 GOUT, UNSPECIFIED 04/07/[address] active 11 HEART FAILURE, UNSPECIFIED 04/07/[address] active 12 HYPERLIPIDEMIA, UNSPECIFIED 04/07/[address] active 13 LEFT BUNDLE-BRANCH BLOCK, UNSPECIFIED 04/07/[address] active 14 LOCALIZED EDEMA 04/07/[address] active 15 MUSCLE WEAKNESS (GENERALIZED) 04/07/[address] active 16 OTHER ABNORMALITIES OF GAIT AND MOBILITY 04/07/[address] active 17 UNSPECIFIED OPEN WOUND, UNSPECIFIED LOWER LEG, SEQUELA 04/07/[address] active 18 UNSTABLE ANGINA 04/07/[address] active 19 VENOUS INSUFFICIENCY (CHRONIC) (PERIPHERAL) 04/07/[address] active 20 WEAKNESS 04/07/[address] active Reason for Referral No Reasons for Referral Entered Social History Social History Observation Description Start Date End Date Code Code System Current Smoking Status Tobacco smoking consumption unknown 133344515 SNOMED CT Sex Assigned At Male 1955 52465-9 [facility] Gender Identity Vital Signs Code Code System Vitals Name Values and Units Timing Information 71231-8 [facility] Pain Level Value=0.0 08/16/2023 8462-4 [facility] Blood Pressure-Diastolic Value=74 Un its=mmHg 08/16/2023 8480-6 [facility] Blood Pressure-Systolic Vhexm=472 Un its=mmHg 08/16/2023 8310-5 [facility] Body Temperature Value=98.0 Units= F 08/16/2023 71437-0 [facility] Weight Kfudy=646.0 Units=Lbs 8867-4 [facility] Heart rate Value=78.0 Units=/min 8302-2 [facility] Height Value=68.0 Units=Inches 07/19/2023 9279-1 [facility] Respiratory Rate Value=18.0 Units=/m in 05/13/2023 44923-7 [facility] O2 % BldC Oximetry Value=95.0 Units= % 05/13/2023
== END 2024-09-05 11:34 | disposition home or self-care (01) ==
LOC: HO.HMCHD 11:10
PROVIDERS: PCP Internal Medicine; Visit Provider Physician Assistant
DX: R07.9 Chest pain, unspecified (principal); G89.29 Other chronic pain; I10 Essential (primary) hypertension; I42.8 Other cardiomyopathies

== ENCOUNTER → 2024-09-05 11:10 | Outpatient (BNVA) | payer MEDICARE, MEDICAID, SELFPAY | PROVIDERS: PCP Internal Medicine; Visit Provider Physician Assistant | DX: I10 Essential (primary) hypertension (principal); I42.8 Other cardiomyopathies; R07.9 Chest pain, unspecified; G89.29 Other chronic pain; D64.9 Anemia, unspecified; I50.9 Heart failure, unspecified | CPT/HCPCS: 99212 ==

== ENCOUNTER 2024-10-26 14:02 | Outpatient (REF) | payer MEDICARE, MEDICAID, SELFPAY ==
[2024-10-26 15:18] LABS: MANUAL DIFF FLAG NO
[2024-10-26 15:49] LABS: Hematocrit 32.2 % (42.0-52.0); Hemoglobin 10.3 g/dl (14.0-18.0); Imm Gran Abs Auto 0.01 X10*3/uL (0.00-0.03); Imm Gran Pct Auto 0.2 % (0.0-0.4); Lymphocytes Absolute Auto 1.5 X10*3/uL (1.2-4.9); Mean Corpuscular HGB Conc 32.0 g/dl (31.0-36.0); Mean Corpuscular Hemoglobin 31.4 pg (27.0-33.0); Mean Corpuscular Volume 98.2 fL (80.0-98.0); NRBC Abs Auto 0.000 X10*3/uL (0.0-0.012); NRBC Pct Auto 0.0 /100WBC (0.0-0.2); Platelet Count 237 X10*3/uL (160-400); Red Blood Count 3.28 X10*6/uL (4.60-5.80); White Blood Count 5.0 X10*3/uL (4.8-10.8)
[2024-10-26 16:18] LABS: Alanine Aminotransferase 157 U/L (0-40); Albumin Level 4.8 g/dL (3.5-5.0); Alkaline Phosphatase 185 U/L (39-117); Anion Gap 12 (12-20); Aspartate Amino Transferase 148 U/L (5-37); Blood Urea Nitrogen 25 mg/dL (9-16); Calcium 10.1 mg/dL (8.4-10.2); Carbon Dioxide 30 mmol/L (22-29); Chloride 105 mmol/L (96-108); Estimated Glomerular Filt Rate 45; Potassium 4.5 mmol/L (3.3-5.1); Sodium 142 mmol/L (135-145); Total Protein 7.4 g/dL (6.5-8.0)
[2024-10-26 16:34] LABS: Prostate Specific Antigen 0.20 ng/mL (<0.05-4.0)
[2024-10-27 21:12] LABS: A. Phagocytphilium DNA,RT-PCR NOT DETECTED (NOT DETECTED); Babesia Microti DNA, RT-PCR NOT DETECTED (NOT DETECTED); Borrelia Miyamotoi,DNA RT-PCR NOT DETECTED (NOT DETECTED); E.Chaffeensis DNA RT-PCR NOT DETECTED (NOT DETECTED); Lyme(Borrelia ssp)DNA RT-PCR NOT DETECTED (NOT DETECTED)
== END 2024-10-26 14:03 | disposition home or self-care (01) ==
LOC: HO.LAB 14:02
PROVIDERS: Physician Assistant; PCP Internal Medicine; Visit Provider Internal Medicine
DX: Z12.5 Encounter for screening for malignant neoplasm of prostate (principal); I42.8 Other cardiomyopathies; M79.10 Myalgia, unspecified site; R07.9 Chest pain, unspecified; R74.8 Abnormal levels of other serum enzymes; I10 Essential (primary) hypertension; K21.9 Gastro-esophageal reflux disease without esophagitis
CPT/HCPCS: 36415; 80053; 82248; 82550; 84153; 85025; 87468; 87469; 87478; 87484; 87798; 96127; 99212

== ENCOUNTER 2024-10-26 14:02 | Outpatient (AMB) | payer MEDICARE, MEDICAID, SELFPAY ==
[2024-10-26 13:53] VITALS: BP 110/68; PULSE 68; TEMP 36.5; O2SAT 98; BMI 26.7
--- NOTE | 2024-10-26 13:53 | MHC.PC.OV ---
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: No Accompanied by: Self / Same As Patient Allergies polyethylene glycol Allergy (Verified 10/26/24 13:53) Itching polyethylene glycol 3350 (From Miralax) Allergy (Verified 10/26/24 13:53) Itching Tobacco use date assessed: 10/26/24 Fall risk assessment: No Falls in past year Last assessed Fall Risk: 10/26/24 Dental Screening Dental Screen Date: 10/26/24 Did you have a dental visit in the last 12 months?: Yes Did you have a dental problem in the last 6 months where you did not have access to dental care?: No HPI HPI Comments History of Present Illness Details The patient is a 69 year old male with a past medical history CAD s/p LAD, LBBB, CM, htn, hld, depression, PVD, GERD presenting for follow up. Yesterday sat down for breakfast. Developed chest pain, chest pressure. Was evaluated in [facility] ER. ACS r/o. Was given a GI cocktail without improvement. Hospitalized at [facility] in May, in August for CP ACS rule out CV: On imdur, losartan, topol, lasix, atorvastatin. BP fluctuates. [facility] Says [facility] last month. Has been having episodes of bradycardia. Previously on a heart monitor but it was not functioning GI: history of esophageal dilation. Has an appt with gastroenterology in July. Upcoming barium swallow. Sees [facility]. Bilateral leg pain-upper>lower, worse with sitting, better with walking. History of COVID back in July + ROS see HPI PHYSICAL EXAM: GENERAL: Alert and oriented x 3. NAD EYES: EOMI. Anicteric. HENT: Moist mucous membranes. No scleral icterus. No cervical lymphadenopathy. LUNGS: Clear to auscultation bilaterally. CARDIOVASCULAR: Regular rate and rhythm. No murmur. No JVD. ABDOMEN: Soft, non-tender +bs EXTREMITIES: No edema. Non-tender. SKIN: No rashes or lesions. Warm. NEUROLOGIC: No focal neurological deficits. CN II-XII grossly intact PSYCHIATRIC: Cooperative. Appropriate mood and affect [facility] Medical History Atypical chest pain Chest pain CHF (congestive heart failure) Syncope COVID-19 Ischemic heart disease due to coronary artery obstruction Left bundle branch block Airway polyps NICM (nonischemic cardiomyopathy) Incarcerated left inguinal hernia Hypertension Gout Peptic ulcer disease Left bundle branch block Coronary artery disease No known health problems Surgical History History of partial gastrectomy H/O heart artery stent Family History Father Myocardial infarction Mother No problems noted. Father No problems noted. Social History Household Members: None Household Members Other:: with friends, staying with friends Housing: Assisted Living Facility Housing Other:: [facility] Do you presently have visiting nurse or other home services: No Alcohol intake: current Alcohol intake frequency: does not drink Patient Tobacco Use Status: Never used Tobacco e-Cigarette/Vaping Use: Never Used Second Hand Smoke Exposure: Yes (friends he stays with smoke outside) Advance Directives Date on File: 05/20/22 service: No Current occupational status: unemployed Cognitive needs: No Hearing needs: No Vision needs: No Questionnaire PHQ-9 Over the last 2 weeks, how often have you been bothered by any of the following problems? 1. Little interest or pleasure in doing things: not at all 2. Feeling down, depressed, or hopeless: not at all 3. Trouble falling or staying asleep, or sleeping too much: not at all 4. Feeling tired or having little energy: not at all 5. Poor appetite or overeating: not at all 6. Feeling bad about yourself - or that you are a failure or have let yourself or your family down: not at all 7. Trouble concentrating on things, such as reading the newspaper or watching television: not at all 8. Moving or speaking so slowly that other people could have noticed. Or the opposite - being so fidgety or restless that you have been moving around a lot more than usual: not at all 9. Thoughts that you would be better off or of hurting yourself in some way: not at all Total score: 0 Depression Screening Interpretation: Negative Depression Screening Done: Yes 19630 - PHQ-9 Billing: Yes Source: Developed by Drs. Daniel Mendez, Racheal Estrada, Faisal Garcia and colleagues, with an educational pepe from [employer]. Thrive Questionnaire Date Thrive assessed: 10/26/24 I am a: Patient Within the past 12 months, did the food you bought not last and you didn't have the money to get more?: Never true Within the past 12 months, did you worry whether your food would run out before you got money to buy more?: Never true Do you have trouble paying for medicines?: No Do you have trouble getting transportation to medical appointments?: No Do you have trouble paying your heating and electricity bill?: No Do you have trouble taking care of your child, family member or friend?: No Do you have trouble with day-to-day activities such as bathing, preparing meals, shopping, managing finances, etc.?: No Are you currently unemployed and looking for a job?: No Are you interested in more education?: No THRIVE Score: 0 AUDIT C Alcohol Use Questionnaire (AUDIT-C) 1. How often do you have a drink containing alcohol?: Never 3. How often do you have six or more drinks on one occasion?: Never Total Score: 0 CLAUDE-7 AMB Questionnaire CLAUDE-7 Date CLAUDE - 7 assessed: 10/26/24 Feeling nervous, anxious, or on edge: 0 = Not at all Not being able to stop or control worryin = Not at all Worrying too much about different things: 0 = Not at all Trouble relaxin = Not at all Being so restless that it is hard to sit still: 0 = Not at all Becoming easily annoyed or irritable: 0 = Not at all Feeling afraid as if something awful might happen: 0 = Not at all Total CLAUDE-7 score (0-4 normal; 5-9 mild; 10-14 moderate; 15-21 severe): 0 Source: Developed by Racheal Lino, Faisal Garcia and colleagues, with an educational pepe from [employer]. Physical exam (Primary Care) Vital Signs: Last Vital Signs Temp 97.7 F 10/26/24 13:53 Pulse 68 10/26/24 13:53 BP 110/68 10/26/24 13:53 Pulse Ox 98 10/26/24 13:53 Oxygen Delivery Method Room Air 10/26/24 13:53 BMI result Body Mass Index 26.7 Tobacco/Smoking Status: Tobacco use Status Tobacco use date assessed 10/26/24 10/26/24 13:54 Patient Tobacco Use Status Never used Tobacco 10/26/24 13:54 e-Cigarette/Vaping Use Never Used 10/26/24 13:54 PHQ-9: PHQ-9 Score PHQ-9: Total score 0 10/26/24 14:17 Depression Screening Interpretation: Negative Thrive Assessment: Date of Thrive Assessment Date Thrive assessed 10/26/24 10/26/24 13:54 Coding Level of Care Code Est Pt Level 4 (85821) Complex EM visit Add On G2211 Diagnoses NICM (nonischemic cardiomyopathy) I42.8 Primary hypertension I10 Hypertension type: primary hypertension Chest pain, unspecified type R07.9 Chest pain type: unspecified Gastroesophageal reflux disease, unspecified whether esophagitis present K21.9 Esophagitis presence: esophagitis presence not specified Additional Codes PHQ-9 - 05797 - PHQ-9 Billing: Yes ([id number]) Assessment & Plan Assessment & Plan (1) NICM (nonischemic cardiomyopathy): Code(s): I42.8 - Other cardiomyopathies Category: Medical (2) Hypertension: Code(s): I10 - Essential (primary) hypertension Category: Medical Qualifiers: Hypertension type: primary hypertension Qualified Code(s): I10 - Essential (primary) hypertension (3) Chest pain: Code(s): R07.9 - Chest pain, unspecified Category: Medical Qualifiers: Chest pain type: unspecified Qualified Code(s): R07.9 - Chest pain, unspecified (4) GERD (gastroesophageal reflux disease): Code(s): K21.9 - Gastro-esophageal reflux disease without esophagitis Category: Medical Qualifiers: Esophagitis presence: esophagitis presence not specified Qualified Code(s): K21.9 - Gastro-esophageal reflux disease without esophagitis Plan 69 year old for follow up [facility] notes from yesterday not available for review 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 We discussed possible cath and EGD Labs ordered Leg pain Trial off statin x 2 weeks Orders: Orders Creatine Kinase Total Today M79.10 - Myalgia, unspecified site
== END 2024-10-26 14:42 | disposition home or self-care (01) ==
LOC: HO.HMCHD 14:03
PROVIDERS: PCP Internal Medicine; Visit Provider Internal Medicine
DX: I42.8 Other cardiomyopathies (principal); I10 Essential (primary) hypertension; R07.9 Chest pain, unspecified; K21.9 Gastro-esophageal reflux disease without esophagitis

== ENCOUNTER 2024-12-06 14:38 | Outpatient (REF) | payer MEDICARE, MEDICAID, SELFPAY ==
[2024-12-06 14:51] LABS: MANUAL DIFF FLAG NO
[2024-12-06 15:07] LABS: Hematocrit 28.7 % (42.0-52.0); Hemoglobin 9.6 g/dl (14.0-18.0); Imm Gran Abs Auto 0.01 X10*3/uL (0.00-0.03); Imm Gran Pct Auto 0.2 % (0.0-0.4); Lymphocytes Absolute Auto 1.5 X10*3/uL (1.2-4.9); Mean Corpuscular HGB Conc 33.4 g/dl (31.0-36.0); Mean Corpuscular Hemoglobin 31.8 pg (27.0-33.0); Mean Corpuscular Volume 95.0 fL (80.0-98.0); NRBC Abs Auto 0.000 X10*3/uL (0.0-0.012); NRBC Pct Auto 0.0 /100WBC (0.0-0.2); Platelet Count 233 X10*3/uL (160-400); Red Blood Count 3.02 X10*6/uL (4.60-5.80); White Blood Count 4.9 X10*3/uL (4.8-10.8)
[2024-12-06 16:15] LABS: Alanine Aminotransferase 26 U/L (0-40); Albumin Level 4.1 g/dL (3.5-5.0); Alkaline Phosphatase 110 U/L (39-117); Anion Gap 10 (12-20); Aspartate Amino Transferase 33 U/L (5-37); Blood Urea Nitrogen 22 mg/dL (9-16); Calcium 9.3 mg/dL (8.4-10.2); Carbon Dioxide 26 mmol/L (22-29); Chloride 111 mmol/L (96-108); Estimated Glomerular Filt Rate > 60; Potassium 4.2 mmol/L (3.3-5.1); Sodium 143 mmol/L (135-145); Total Protein 6.5 g/dL (6.5-8.0)
== END 2024-12-06 14:39 | disposition home or self-care (01) ==
LOC: HO.LAB 14:38
PROVIDERS: PCP Internal Medicine; Visit Provider Internal Medicine
DX: R74.8 Abnormal levels of other serum enzymes (principal); D64.9 Anemia, unspecified
CPT/HCPCS: 80053; 85025

== ENCOUNTER 2024-12-18 13:23 | Outpatient (AMB) | payer MEDICARE, MEDICAID, SELFPAY ==
--- NOTE | 2024-12-18 13:19 | MHC.PC.OV ---
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 CAD/LBBB/HfrEF- s/p PCI, has recurrent episodes of anginal type chest pains however multiple ER visits and admission of ACS rule out have been negative. Follows with Fam in [facility]. Recently was placed on Holter monitor but was unable to keep this attached for more than 1 day. He is on aspirin, Lipitor, isosorbide, metoprolol, losartan, Lasix. Currently no chest pain, dyspnea, palpitations, lightheadedness, edema. No recent weight gain. He does report some aching in the calves bilaterally with rest BPH-stable on finasteride and tamsulosin GERD-stable on pantoprazole and sucralfate Gout-on allopurinol 100 mg daily Anemia-normocytic. Gi referral placed [facility] Medical History Atypical chest pain Chest pain CHF (congestive heart failure) Syncope COVID-19 Ischemic heart disease due to coronary artery obstruction Left bundle branch block Airway polyps NICM (nonischemic cardiomyopathy) Incarcerated left inguinal hernia Hypertension Gout Peptic ulcer disease Left bundle branch block Coronary artery disease No known health problems Surgical History History of partial gastrectomy H/O heart artery stent Family History Father Myocardial infarction Mother No problems noted. Father No problems noted. Social History Household Members: None Household Members Other:: with friends, staying with friends Housing: Assisted Living Facility Housing Other:: [facility] home Do you presently have visiting nurse or other home services: No Alcohol intake: current Alcohol intake frequency: does not drink Patient Tobacco Use Status: Never used Tobacco e-Cigarette/Vaping Use: Never Used Second Hand Smoke Exposure: Yes (friends he stays with smoke outside) Advance Directives Date on File: 05/20/22 service: No Current occupational status: unemployed Cognitive needs: No Hearing needs: No Vision needs: No Questionnaire Thrive Questionnaire Date Thrive assessed: 08/04/24 CLAUDE-7 AMB Questionnaire CLAUDE-7 Date CLAUDE - 7 assessed: 08/04/24 Source: Developed by Drs. Daniel Mendez, Racheal Estrada, Faisal Garcia and colleagues, with an educational pepe from [employer]. Physical exam (Primary Care) Vital Signs: Last Vital Signs Temp 97.8 F 12/18/24 13:29 Pulse 77 12/18/24 13:29 Resp 18 12/18/24 13:29 BP 126/62 12/18/24 13:29 Pulse Ox 97 12/18/24 13:29 Oxygen Delivery Method Room Air 12/18/24 13:29 BMI result Body Mass Index 28.7 Tobacco/Smoking Status: Tobacco use Status Tobacco use date assessed 08/04/24 12/18/24 13:19 Patient Tobacco Use Status Never used Tobacco 12/18/24 13:19 e-Cigarette/Vaping Use Never Used 12/18/24 13:19 Thrive Assessment: Date of Thrive Assessment Date Thrive assessed 08/04/24 12/18/24 13:19 Coding Level of Care Code Est Pt Level 4 (13734) Complex EM visit Add On G2211 Diagnoses Chest pain, unspecified type R07.9 Chest pain type: unspecified Elevated liver enzymes R74.8 Gastroesophageal reflux disease, unspecified whether esophagitis present K21.9 Esophagitis presence: esophagitis presence not specified Primary hypertension I10 Hypertension type: primary hypertension Venous insufficiency I87.2 Assessment & Plan Assessment & Plan (1) Chest pain: Code(s): R07.9 - Chest pain, unspecified Category: Medical Qualifiers: Chest pain type: unspecified Qualified Code(s): R07.9 - Chest pain, unspecified Plan: Etiology unclear. Possible stable angina, less likely gastric in etiology given absence of response to GI cocktail. Continue ASA, statin, beta-humaira, isosorbide. Follow-up with Cardiology. (2) Elevated liver enzymes: Code(s): R74.8 - Abnormal levels of other serum enzymes Category: Medical Plan: Resolved. Possible viral in nature (3) GERD (gastroesophageal reflux disease): Code(s): K21.9 - Gastro-esophageal reflux disease without esophagitis Category: Medical Qualifiers: Esophagitis presence: esophagitis presence not specified Qualified Code(s): K21.9 - Gastro-esophageal reflux disease without esophagitis Plan: Follow-up with gastroenterology and undergo barium swallow as ordered. Continue with increased dose of pantoprazole (4) Hypertension: Code(s): I10 - Essential (primary) hypertension Category: Medical Qualifiers: Hypertension type: primary hypertension Qualified Code(s): I10 - Essential (primary) hypertension Plan: Controlled. Continue current therapies (5) Venous insufficiency: Code(s): I87.2 - Venous insufficiency (chronic) (peripheral) Category: Medical Plan: Continue compression stockings, leg elevation, Lasix Plan Follow-up in the office as scheduled. Labs to be completed as below. ED provider note reviewed as well as EKG report, chest x-ray, and labs. Orders: Orders Basic Metabolic Panel 4 Months D64.9 - Anemia, unspecified, I10 - Essential (primary) hypertension, I42.8 - Other cardiomyopathies, R07.89 - Other chest pain Complete Blood Count Auto Diff 4 Months D64.9 - Anemia, unspecified, I10 - Essential (primary) hypertension, I42.8 - Other cardiomyopathies, R07.89 - Other chest pain Lipid Panel 4 Months D64.9 - Anemia, unspecified, I10 - Essential (primary) hypertension, I42.8 - Other cardiomyopathies, R07.89 - Other chest pain Liver Panel 4 Months D64.9 - Anemia, unspecified, I10 - Essential (primary) hypertension, I42.8 - Other cardiomyopathies, R07.89 - Other chest pain
[2024-12-18 13:29] VITALS: BP 126/62; PULSE 77; RESP 18; TEMP 36.6; O2SAT 97; BMI 28.7
== END 2024-12-18 14:01 | disposition home or self-care (01) ==
PROVIDERS: PCP Student in an Organized Health Care Education/Training Program; Visit Provider Physician Assistant
DX: R07.9 Chest pain, unspecified (principal); R74.8 Abnormal levels of other serum enzymes; K21.9 Gastro-esophageal reflux disease without esophagitis; I10 Essential (primary) hypertension; I87.2 Venous insufficiency (chronic) (peripheral)

== ENCOUNTER → 2024-12-18 13:23 | Outpatient (BNVA) | payer MEDICARE, MEDICAID, SELFPAY | PROVIDERS: PCP Internal Medicine; Visit Provider Physician Assistant | DX: R07.9 Chest pain, unspecified (principal); R74.8 Abnormal levels of other serum enzymes; K21.9 Gastro-esophageal reflux disease without esophagitis; I11.0 Hypertensive heart disease with heart failure; I50.20 Unspecified systolic (congestive) heart failure; I87.2 Venous insufficiency (chronic) (peripheral); N40.0 Benign prostatic hyperplasia without lower urinary tract symptoms; M10.9 Gout, unspecified; D64.9 Anemia, unspecified; Z79.82 Long term (current) use of aspirin; Z79.899 Other long term (current) drug therapy | CPT/HCPCS: 99212 ==

== ENCOUNTER 2025-01-29 12:57 | Outpatient (AMB) | payer MEDICARE, MEDICAID, SELFPAY ==
--- NOTE | 2025-01-29 13:04 | MHC.PC.OV ---
Vital Signs 01/29/25 13:09 Height 5 ft 10 in Weight 83.688 kg BMI 26.5 BP 118/62 Pulse 66 Temp 97.3 F Temp Source Oral Pulse Oximetry (%) 99 Oxygen Delivery Method Room Air Intake Visit Reasons: ED F/U [facility] Maintenance Inspector Required: No Accompanied by: Self / Same As Patient Allergies polyethylene glycol Allergy (Verified 01/29/25 13:04) Itching polyethylene glycol 3350 (From Miralax) Allergy (Verified 01/29/25 13:04) Itching Tobacco use date assessed: 08/04/24 Dental Screening Dental Screen Date: 08/04/24 HPI HPI Comments History of Present Illness Details 69-year-old male with history of heart failure, anemia, BPH, CAD s/p PCI, gout, hypertension, hyperlipidemia, left bundle branch block, CM, anemia, HFrEF presenting to the office today for management of chronic conditions and for ER follow up. CAD/LBBB/HfrEF- s/p PCI, has recurrent episodes of anginal type chest pains however multiple ER visits and admission of ACS rule out have been negative. Most recently observed overnight due to typical chest pain radiating to the left jaw and upper extremity, similar to prior episodes. He was also experiencing paresthesias in the bilateral lower extremities with weakness. EKG was without any acute ischemia and unchanged from priors. Troponins were flat. He was seen by Cardiology during his visit. Follows with Fam in [facility]. Recently was placed on Holter monitor but was unable to keep this attached for more than 1 day. He is on aspirin, Lipitor, isosorbide, metoprolol, losartan, Lasix. Currently no chest pain, dyspnea, palpitations, lightheadedness, edema. No recent weight gain. He does report some aching in the calves bilaterally with rest. Question whether this is related to GI BPH-stable on finasteride and tamsulosin GERD-stable on pantoprazole and sucralfate. He was supposed to have barium swallow with esophagram but this was canceled. Advised follow-up with GI as scheduled 02/06 Gout-on allopurinol 100 mg daily Anemia-normocytic. Gi referral placed Concerns: None Colonoscopy-follows with [facility] ROS: General: No fevers, malaise, unintentional weight loss HEENT: No blurred vision, diplopia. No sore throat, nasal congestion, rhinorrhea, sinus pain, ear pain Cardiovascular: see hpi Respiratory: No shortness of breath, wheezing, cough GI: No abdominal pain, nausea, vomiting, diarrhea, constipation, melena, hematochezia : No dysuria, hematuria, increased urinary frequency, decreased urinary output MSK: No myalgia, back pain Neuro: No headaches, weakness, paresthesias Skin: No rashes or lesions EXAM: Constitutional - Awake and Alert, No apparent distress Eyes - PERRL Cardiovascular - S1S2, RRR, No edema Respiratory - Normal lung expansion, Normal respiratory effort, No respiratory distress, CTA bilaterally Extremities - no calf tenderness bilaterally, no swelling Skin - Warm/Dry Neurological - Alert & oriented x3 Psychological - Appropriate affect [facility] Medical History Atypical chest pain Chest pain CHF (congestive heart failure) Syncope COVID-19 Ischemic heart disease due to coronary artery obstruction Left bundle branch block Airway polyps NICM (nonischemic cardiomyopathy) Incarcerated left inguinal hernia Hypertension Gout Peptic ulcer disease Left bundle branch block Coronary artery disease No known health problems Surgical History History of partial gastrectomy H/O heart artery stent Family History Father Myocardial infarction Mother No problems noted. Father No problems noted. Social History Household Members: None Household Members Other:: with friends, staying with friends Housing: Assisted Living Facility Housing Other:: [facility] Do you presently have visiting nurse or other home services: No Alcohol intake: current Alcohol intake frequency: does not drink Patient Tobacco Use Status: Never used Tobacco e-Cigarette/Vaping Use: Never Used Second Hand Smoke Exposure: Yes (friends he stays with smoke outside) Advance Directives Date on File: 05/20/22 service: No Current occupational status: unemployed Cognitive needs: No Hearing needs: No Vision needs: No Questionnaire Thrive Questionnaire Date Thrive assessed: 08/04/24 CLAUDE-7 AMB Questionnaire CLAUDE-7 Date CLAUDE - 7 assessed: 08/04/24 Source: Developed by Drs. Daniel Mendez, Racheal Estrada, Faisal Garcia and colleagues, with an educational pepe from [employer]. Physical exam (Primary Care) Vital Signs: Last Vital Signs Temp 97.3 F 01/29/25 13:09 Pulse 66 01/29/25 13:09 BP 118/62 01/29/25 13:09 Pulse Ox 99 01/29/25 13:09 Oxygen Delivery Method Room Air 01/29/25 13:09 BMI result Body Mass Index 26.5 Tobacco/Smoking Status: Tobacco use Status Tobacco use date assessed 08/04/24 01/29/25 13:12 Patient Tobacco Use Status Never used Tobacco 01/29/25 13:12 e-Cigarette/Vaping Use Never Used 01/29/25 13:12 Thrive Assessment: Date of Thrive Assessment Date Thrive assessed 08/04/24 01/29/25 13:12 Coding Level of Care Code Est Pt Level 5 (72784) Complex visit Add On G2211 Diagnoses Chest pain, unspecified type R07.9 Chest pain type: unspecified Primary hypertension I10 Hypertension type: primary hypertension Venous insufficiency I87.2 Time Spent (min) 45 Assessment & Plan Assessment & Plan (1) Chest pain: Code(s): R07.9 - Chest pain, unspecified Category: Medical Qualifiers: Chest pain type: unspecified Qualified Code(s): R07.9 - Chest pain, unspecified Plan: Etiology unclear. Possible stable angina, less likely gastric in etiology given absence of response to GI cocktail. Continue ASA, statin, beta-humaira, isosorbide. Follow-up with Cardiology. Question GI etiology. Recommended to reschedule barium swallow with esophagram and follow-up with gastroenterology as scheduled. Continue pantoprazole 40 mg twice daily as well as sucralfate (2) Hypertension: Code(s): I10 - Essential (primary) hypertension Category: Medical Qualifiers: Hypertension type: primary hypertension Qualified Code(s): I10 - Essential (primary) hypertension Plan: Controlled. Continue current therapies (3) Venous insufficiency: Code(s): I87.2 - Venous insufficiency (chronic) (peripheral) Category: Medical Plan: Continue compression stockings, leg elevation, Lasix Plan Follow-up in the office as scheduled. Labs to be completed as below. ED provider note reviewed as well as EKG report, chest x-ray, and labs as well as hospital discharge summary
[2025-01-29 13:09] VITALS: BP 118/62; PULSE 66; TEMP 36.3; O2SAT 99; BMI 26.5
== END 2025-01-29 14:11 | disposition home or self-care (01) ==
LOC: HO.HMCHD 12:58
PROVIDERS: PCP Student in an Organized Health Care Education/Training Program; Visit Provider Physician Assistant
DX: R07.9 Chest pain, unspecified (principal); I10 Essential (primary) hypertension; I87.2 Venous insufficiency (chronic) (peripheral)

== ENCOUNTER → 2025-01-29 12:57 | Outpatient (BNVA) | payer MEDICARE, MEDICAID, SELFPAY | PROVIDERS: PCP Student in an Organized Health Care Education/Training Program; Visit Provider Physician Assistant | DX: R07.9 Chest pain, unspecified (principal); I11.0 Hypertensive heart disease with heart failure; I50.20 Unspecified systolic (congestive) heart failure; I25.10 Atherosclerotic heart disease of native coronary artery without angina pectoris; I44.7 Left bundle-branch block, unspecified; I87.2 Venous insufficiency (chronic) (peripheral); N40.0 Benign prostatic hyperplasia without lower urinary tract symptoms; K21.9 Gastro-esophageal reflux disease without esophagitis; M10.9 Gout, unspecified; D64.9 Anemia, unspecified; Z79.82 Long term (current) use of aspirin; Z79.899 Other long term (current) drug therapy; Z98.61 Coronary angioplasty status | CPT/HCPCS: 99212 ==